=== PATIENT | male | born 1970 | race Hispanic/Latino ===

== ENCOUNTER 2017-11-20 10:01 | Inpatient (IN) | payer OTHER ==
[2017-11-20 10:53] LABS: Hematocrit 45.4 % (35.5-45.6); Hemoglobin 14.6 gm/dl (11.8-15.2); Mean Corpuscular HGB Conc 32 % (32-34); Mean Corpuscular Hemoglobin 27 pg (28-32); Mean Corpuscular Volume 84 fl (84-94); Platelet Count 354 K/mm3 (140-440); Red Blood Count 5.38 M/mm3 (3.65-5.03); Red Cell Distribution Width 15.4 % (13.2-15.2)
[2017-11-20 11:03] LABS: Bilirubin,Urine NEG (Negative); Blood,Urine SM (Negative); Color,Urine Yellow (Yellow); Mucus,Urine 1+ /HPF; Nitrite,Urine NEG (Negative); WBC,Urine < 1.0 /HPF (0.0-6.0)
[2017-11-20] MEDS ORDERED: ZOFRAN IV ONE (11:04)
[2017-11-20] MEDS ORDERED: NACL 0.9% 1000 ML 1,000 ML IV ONE (11:04)
[2017-11-20] MEDS ORDERED: SUBLIMAZE IV ONE (11:04)
[2017-11-20 11:07] LABS: Alanine Aminotransferase 11 units/L (7-56); Albumin 3.6 g/dL (3.9-5); BUN/Creatinine Ratio 23; Blood Urea Nitrogen 21 mg/dL (9-20); Calcium 9.5 mg/dL (8.4-10.2); Hemolysis Index 5
--- NOTE | 2017-11-20 11:40 | Emergency Department Report ---
HPI - General Chief Complaint: Abdominal Pain Time Seen by Provider: 11/20/17 10:57 - HPI HPI: Fernandes 19 The patient is a 47-year-old male presenting with a chief complaint of abdominal pain. Patient has a history of Crohn's disease and states she's been suffering from intermittent abdominal pain since 2016. Patient states 2 days ago pain returned and worsened. Patient describes the pain as a spasm in nature. Patient admits to nausea and vomiting but denies diarrhea, fever or dysuria. The patient currently gives his pain a score of 7/10 Location: Diffuse abdomen Duration: [See above] Quality: Spasm Severity: 7/10 Modifying factors: [see above] Context: [see above] Mode of transportation: [not driving] ED Past Medical Hx - Past Medical History Hx Diabetes: Yes Additional medical history: Crohn's Disease - Surgical History Additional Surgical History: Abd surgery due to Crohn's - Family History Family history: no significant - Social History Smoking Status: Current Every Day Smoker (1/2 pack per day) Substance Use Type: None, Marijuana ED Review of Systems ROS: Stated complaint: ABDOMINAL PAIN Other details as noted in HPI Constitutional: denies: fever Gastrointestinal: abdominal pain, nausea, vomiting. denies: diarrhea Physical Exam - Physical Exam Vital Signs: Vital Signs 11/20/17 10:19 Temperature 97.9 F Pulse Rate 151 H Respiratory 20 Rate Blood Pressure 113/77 O2 Sat by Pulse 98 Oximetry Physical Exam: GENERAL: The patient is well-developed well-nourished male lying on stretcher appearing to be in mild discomfort. [] HEENT: Normocephalic. Atraumatic. Extraocular motions are intact. Patient has moist mucous membranes. NECK: Supple. Trachea midline CHEST/LUNGS: Clear to auscultation. There is no respiratory distress noted. HEART/CARDIOVASCULAR: Regular. There is no tachycardia. There is no gallop rub or murmur. ABDOMEN: Abdomen is soft, with diffuse tenderness to palpation. Patient has normal bowel sounds. There is no abdominal distention. SKIN: There is no rash. There is no edema. There is no diaphoresis. NEURO: The patient is awake, alert, and oriented. The patient is cooperative. The patient has normal speech MUSCULOSKELETAL: There is no evidence of acute injury. ED Course Vital Signs 11/20/17 10:19 Temperature 97.9 F Pulse Rate 151 H Respiratory 20 Rate Blood Pressure 113/77 O2 Sat by Pulse 98 Oximetry - Consultations Consultation #1: 11/20/17 12:35 Surgery paged 11/20/17 12:[address] Gordon. Will review CT scan and patient to determine if NG tube is necessary Consultation #2: 11/20/17 12:38 GI paged 11/20/17 13:[address] Mix ED Medical Decision Making - Lab Data Result diagrams: 11/20/17 10:38 11/20/17 10:38 Laboratory Tests 11/20/17 11/20/17 11/20/17 10:38 10:38 10:38 WBC 7.9 RBC 5.38 H Hgb 14.6 Hct 45.4 MCV 84 MCH 27 L MCHC 32 RDW 15.4 H Plt Count 354 [place] % (Auto) Director Of Education Sodium 129 L Potassium 4.8 Chloride 89.4 L Carbon Dioxide 20 L Anion Gap 24 BUN 21 H Creatinine 0.9 Estimated GFR > 60 BUN/Creatinine Ratio 23 Glucose 153 H Calcium 9.5 Total Bilirubin 0.50 AST 10 ALT 11 Alkaline Phosphatase 76 Total Protein 7.5 Albumin 3.6 L Albumin/Globulin Ratio 0.9 Lipase 19 Urine Color Urine Turbidity Urine pH Ur Specific [place] Urine Protein Urine Glucose (UA) Urine Ketones Urine Blood Urine Nitrite Urine Bilirubin Urine Urobilinogen Ur Leukocyte Esterase Urine WBC (Auto) Urine RBC (Auto) Urine Mucus 11/20/17 10:57 WBC RBC Hgb Hct MCV MCH MCHC RDW Plt Count [place] % (Auto) Sodium Potassium Chloride Carbon Dioxide Anion Gap BUN Creatinine Estimated GFR BUN/Creatinine Ratio Glucose Calcium Total Bilirubin AST ALT Alkaline Phosphatase Total Protein Albumin Albumin/Globulin Ratio Lipase Urine Color Yellow Urine Turbidity Clear Urine pH 5.0 Ur Specific [place] 1.028 Urine Protein 30 mg/dl Urine Glucose (UA) Neg Urine Ketones 20 Urine Blood Sm Urine Nitrite Neg Urine Bilirubin Neg Urine Urobilinogen 2.0 Ur Leukocyte Esterase Neg Urine WBC (Auto) < 1.0 Urine RBC (Auto) 1.0 Urine Mucus 1+ - EKG Data -: EKG Interpreted by Al EKG shows normal: sinus rhythm Rate: tachycardia (123 bpm) - EKG Data When compared to previous EKG there are: previous EKG unavailable Interpretation: other (no ischemic changes seen) - Radiology Data Radiology results: report reviewed (CT abdomen and pelvis), image reviewed (CT abdomen and pelvis) CT abdomen and pelvis (read by radiologist)- impressive nodular thickening and enhancement of the terminal ileum. With the given history and acute Crohn's exacerbation is most likely. Please note I cannot entirely exclude a neoplastic process. Please note that the penicillin is not confidently identified, correlate with surgical history. There are signs of a moderate to high-grade partial small bowel obstruction at the level of the terminal ileum. - Differential Diagnosis Crohn's flareup, gastritis Critical care attestation.: If time is entered above; I have spent that time in minutes in the direct care of this critically ill patient, excluding procedure time. ED Disposition Clinical Impression: Partial small bowel obstruction, Acute abdominal pain, Exacerbation of Crohn's disease Disposition: 09 OP ADMIT IP TO THIS HOSP Is pt being admited?: Yes Does the pt Need Aspirin: No Condition: Fair Time of Disposition: 12:38 (hospitalist paged)
[2017-11-20 11:42] LABS: Band Neutrophils # (Manual) 0.7 K/mm3; Basophils % (Manual) 0 % (0.0-1.8); Platelet Estimate Consistent w Auto; RBC Morphology Normal; Total Cells Counted 100
--- NOTE | 2017-11-20 12:01 | Cat Scan Report ---
CT ABDOMEN PELVIS WITH CONTRAST: HISTORY: Diffuse abdominal pain, history of Crohn's disease. COMPARISON: none. TECHNIQUE: Helical CT in 1.25mm intervals following IV contrast. Sagittal and coronal reconstructions. FINDINGS: Lung bases: Minor discoid atelectasis or scarring is noted in the right middle lobe. The remainder of the visualized lung bases are well aerated. Normal heart size. Liver: Normal. Biliary system: Normal. Pancreas: Normal. Spleen: Normal. Kidneys/ureters/bladder: Normal. Adrenal glands: Normal. Aorta: Normal. Intestines: There is impressive and nodular circumferential thickening of the terminal ileum with mucosal enhancement. Multiple distal ileal loops are dilated up to 4 cm. Partial obstruction is suspected at this level. Given a history of Crohn's disease, this area of nodular thickening could represent an acute Crohn's exacerbation. Please note I can't entirely exclude tumor in the terminal ileum. Lymphoma could be considered. The remaining bowel loops are unremarkable given no oral contrast was administered. Surgical changes consistent with distal gastrectomy and anastomosis to the jejunal bowel loops is suspected, correlate with history. Appendix: Not identified. Pelvic viscera: Normal. Ascites: None. Adenopathy: None. Musculoskeletal: Normal. IMPRESSION: Impressive nodular thickening and enhancement of the terminal ileum as outlined above. With the given history, an acute Crohn's exacerbation is most likely. Please note I cannot entirely exclude a neoplastic process. Please note that the appendix is not confidently identified, correlate with surgical history. There are signs of a moderate to high-grade partial small bowel obstruction at the level of the terminal ileum.
--- NOTE | 2017-11-20 13:28 | Consultation ---
History of Present Illness Consult date: 11/20/17 Requesting physician: SHERYL SAWYER Chief complaint: Abdominal pain - History of present illness History of present illness: 47-year-old male with a past medical history of Crohn's disease diagnosed in 1993 presents to the emergency room with complaints of right lower quadrant abdominal pain, described as spasms, that radiates across to the left side of the abdomen. He states that the pain started approximately 1-1/2 month ago, and has been intermittent in nature. He states that he has been dealing with the pain however it has become so severe and more frequent now and this prompted his visit to the emergency room. He has been having associated nausea and emesis (nonbloody/nonbilious). This is been going on for the last 3 days. He has not been able to tolerate a solid diet, however has been tolerating clear liquids for the past day. His last bowel movement was 2 days ago. He is still passing flatus. He denies fevers, chills, chest pain, shortness of breath , hematochezia, melena, diarrhea, constipation. Patient last colonoscopy was 10 years ago. He recently saw Dr. Her (GI) in the office and multiple tests were ordered for his Crohn's disease, however the patient has not gotten around to having this test performed. He was started on prednisone 20 mg by mouth daily by Dr. Her. The patient has had 2 abdominal operations both for complications of Crohn's disease. The patient does not remember the details however states that one was for a fistula that formed an abscess and another open abdominal surgery for a presumed duodenal obstruction. Past History Past Medical History: diabetes, hypertension, other (Crohn's disease ) Past Surgical History: bowel surgery, Other (exploratory laparotomy) Social history: smoking (half pack per day, occasional marijuana), alcohol abuse (12 pack of beer a week) Family history: other (skin cancer in mother, lung cancer in grandfather) Medications and Allergies Allergies Allergy/AdvReac Type Severity Reaction Status Date / Time No Known Allergies Allergy Unverified 11/20/17 10:31 Home Medications Medication Instructions Recorded Confirmed Last Taken Type Lisinopril [Zestril TAB] 11/20/17 Unknown History Metformin HCl [Metformin HCl] 11/20/17 Unknown History predniSONE [Deltasone] 11/20/17 Unknown History Review of Systems All systems: negative (10 point review systems was performed and negative except for that listed in HPI) Exam Vital Signs Temp Pulse Resp BP Pulse Ox 97.9 F 151 H 20 113/77 98 11/20/17 10:19 11/20/17 10:19 11/20/17 10:19 11/20/17 10:19 11/20/17 10:19 Narrative exam: Interval: Awake, alert, oriented 3. stress ENT: No scleral icterus or conjunctival pallor CV: S1, S2 present Respiratory: No audible wheezes Abdomen: Soft, nondistended, positive tenderness to palpation in the right upper and right lower quadrant. There is no rebound, rigidity, guarding. There is a well-healed midline surgical scar Extremities: No clubbing, cyanosis, edema Results - Labs 11/20/17 10:38 11/20/17 10:38 Abnormal lab results 11/20/17 11/20/17 Range/Units 10:38 10:38 RBC 5.38 H (3.65-5.03) M/mm3 MCH 27 L (28-32) pg RDW 15.4 H (13.2-15.2) % Monocytes % (Manual) 12.0 H (0.0-7.3) % Nucleated RBC % 1.0 H (0.0-0.9) % Monocytes # (Manual) 0.9 H (0.0-0.8) K/mm3 Sodium 129 L (137-145) mmol/L Chloride 89.4 L (98-107) mmol/L Carbon Dioxide 20 L (22-30) mmol/L BUN 21 H (9-20) mg/dL Glucose 153 H (75-100) mg/dL Albumin 3.6 L (3.9-5) g/dL Diabetes panel 11/20/17 Range/Units 10:38 Sodium 129 L (137-145) mmol/L Potassium 4.8 (3.6-5.0) mmol/L Chloride 89.4 L (98-107) mmol/L Carbon Dioxide 20 L (22-30) mmol/L BUN 21 H (9-20) mg/dL Creatinine 0.9 (0.8-1.5) mg/dL Glucose 153 H (75-100) mg/dL Calcium 9.5 (8.4-10.2) mg/dL AST 10 (5-40) units/L ALT 11 (7-56) units/L Alkaline Phosphatase 76 (35-129) units/L Total Protein 7.5 (6.3-8.2) g/dL Albumin 3.6 L (3.9-5) g/dL Calcium panel 11/20/17 Range/Units 10:38 Calcium 9.5 (8.4-10.2) mg/dL Albumin 3.6 L (3.9-5) g/dL Pituitary panel 11/20/17 Range/Units 10:38 Sodium 129 L (137-145) mmol/L Potassium 4.8 (3.6-5.0) mmol/L Chloride 89.4 L (98-107) mmol/L Carbon Dioxide 20 L (22-30) mmol/L BUN 21 H (9-20) mg/dL Creatinine 0.9 (0.8-1.5) mg/dL Glucose 153 H (75-100) mg/dL Calcium 9.5 (8.4-10.2) mg/dL Adrenal panel 11/20/17 Range/Units 10:38 Sodium 129 L (137-145) mmol/L Potassium 4.8 (3.6-5.0) mmol/L Chloride 89.4 L (98-107) mmol/L Carbon Dioxide 20 L (22-30) mmol/L BUN 21 H (9-20) mg/dL Creatinine 0.9 (0.8-1.5) mg/dL Glucose 153 H (75-100) mg/dL Calcium 9.5 (8.4-10.2) mg/dL Total Bilirubin 0.50 (0.1-1.2) mg/dL AST 10 (5-40) units/L ALT 11 (7-56) units/L Alkaline Phosphatase 76 (35-129) units/L Total Protein 7.5 (6.3-8.2) g/dL Albumin 3.6 L (3.9-5) g/dL - Imaging CT scan - abdomen: report reviewed, image reviewed CT scan - pelvis: report reviewed, image reviewed Assessment and Plan 47-year-old male with 1. Partial small bowel obstruction 2. Terminal ileitis 3. Crohn's disease Plan: 1. Nothing by mouth 2. IV fluids 3. IV antibiotics 4. GI consult pending 5. Serial abdominal exams 6. Pain and nausea control when necessary 7. DVT prophylaxis 8. We will hold off on NG tube. If the patient experiences emesis, an NG tube will be ordered. This was discussed and explained to the patient.
[2017-11-20] MEDS ORDERED: DULCOLAX PR PRN (14:27)
[2017-11-20] MEDS ORDERED: PROVENTIL IH PRN (14:27)
[2017-11-20] MEDS ORDERED: ZOFRAN IV PRN (14:27)
[2017-11-20] MEDS ORDERED: TYLENOL PO PRN (14:27)
[2017-11-20] MEDS ORDERED: MILK OF MAGNESIA PO PRN (14:27)
--- NOTE | 2017-11-20 14:44 | Gastroenterology Consultation ---
History of Present Illness - Reason for Consult Consult date: 11/20/17 Crohn's disease Requesting physician: RULA WHARTON - History of Present Illness The patient is a 47 year old man seen by myself and followed for several years until lost to follow up more than 5 years ago. He has mostly been under the care of his PCP, Dr. Stefania Martin, who has been prescribing monotherapy with prednisone. He is now admitted with a slowly progressive flare of pain over the past 8 weeks. Patient was diagnosed in 1993 at which time he had a partial resection, likely ileocolectomy athough he does not recall the details. 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 He has not had a colonoscopy in 10 years. The patient has been on Remicade in the past but does not recall whether this was successful. He has not been engaged in GI care for many years. Weight has been stable and he denies bleeding or diarrhea. He smokes cigarettes daily and takes Alleve or Advil regularly for abdominal pain. Past History Past Medical History: diabetes, hypertension, other (Crohn's disease ) Past Surgical History: bowel surgery, Other (exploratory laparotomy) Social history: smoking (half pack per day, occasional marijuana), alcohol abuse (12 pack of beer a week) Family history: other (skin cancer in mother, lung cancer in grandfather) Medications and Allergies Allergies Allergy/AdvReac Type Severity Reaction Status Date / Time No Known Allergies Allergy Unverified 11/20/17 10:31 Home Medications Medication Instructions Recorded Confirmed Last Taken Type Lisinopril [Zestril TAB] 11/20/17 Unknown History Metformin HCl [Metformin HCl] 11/20/17 Unknown History predniSONE [Deltasone] 11/20/17 Unknown History Active Meds: Active Medications Acetaminophen (Tylenol) 650 mg PO Q4H PRN PRN Reason: Pain MILD(1-3)/Fever >100.5/SHOOK Albuterol (Proventil) 2.5 mg IH Q4HRT PRN PRN Reason: Shortness Of Breath Bisacodyl (Dulcolax) 10 mg [place] QDAY PRN PRN Reason: Constipation unrelieved by MOM Sodium Chloride (Nacl 0.9% 1000 Ml) 1,000 mls @ 150 mls/hr IV DIRECT KELLY Magnesium Hydroxide (Milk Of Magnesia) 30 ml PO Q4H PRN PRN Reason: Constipation Methylprednisolone Sodium Succinate (Solu-Medrol) 40 mg IV Q8HR KELLY Ondansetron HCl (Zofran) 4 mg IV Q8H PRN PRN Reason: N/V unrelieved by Reglan Review of Systems - Review of Systems Constitutional: no weight loss, no fever, no chills Ears, Nose, Throat: no difficulty swallowing, no painful swallowing Breasts: deferred Cardiovascular: no chest pain, no edema, no rapid/irregular heart beat, no shortness of breath Respiratory: no cough, no shortness of breath, no home oxygen Gastrointestinal: abdominal pain, no nausea, no vomiting, no diarrhea, no constipation, no change in bowel habits, no hematemesis, no BRBPR, no heartburn Rectal: no pain, no bleeding Male Genitourinary: deferred Musculoskeletal: no gait dysfunction, no joint pain, no muscle pain Integumentary: no rash, no pruritis, no jaundice Neurological: no head injury, no paralysis, no weakness, no memory loss Psychiatric: no anxiety, no memory loss, no change in appetite, no disorientation Endocrine: no cold intolerance, no heat intolerance Hematologic/Lymphatic: no easy bruising, no easy bleeding Allergic/Immunologic: no wheezing, no angioedema Exam - Constitutional Vital Signs: Temp Pulse Resp BP Pulse Ox 97.9 F 151 H 20 113/77 98 11/20/17 10:19 11/20/17 10:19 11/20/17 12:25 11/20/17 10:19 11/20/17 10:19 General appearance: no acute distress, well-nourished - EENT Eyes: PERRL ENT: hearing intact, clear oral mucosa, dentition normal - Neck Neck: supple, normal ROM, no masses or JVD - Respiratory Respiratory effort: normal Respiratory: bilateral: CTA - Breasts Breasts: deferred - Cardiovascular Rhythm: regular Heart Sounds: Present: S1 & S2. Absent: gallop, rub Extremities: pulses intact, No edema, normal color, Full ROM - Gastrointestinal General gastrointestinal: Present: soft, tender (moderate tenderness in RLQ without rebound or guarding.), non-distended, normal bowel sounds, other ( Midline and RLQ scars). Absent: hepatomegaly, splenomegaly, mass Rectal Exam: deferred - Genitourinary Male Genitourinary: deferred - Integumentary Integumentary: Present: clear, warm, dry - Neurologic Neurological: alert and oriented x3 - Labs CBC & Chem 7: 11/20/17 10:38 11/20/17 10:38 Lab Results: Laboratory Results - last 24 hr 11/20/17 11/20/17 11/20/17 10:38 10:38 10:38 WBC 7.9 RBC 5.38 H Hgb 14.6 Hct 45.4 MCV 84 MCH 27 L MCHC 32 RDW 15.4 H Plt Count 354 [place] % (Auto) Flight Line Service Attendant Add Manual Diff Complete Total Counted 100 Seg Neuts % (Manual) 61.0 Band Neutrophils % 9.0 Lymphocytes % (Manual) 17.0 Reactive Lymphs % (Man) 0 Monocytes % (Manual) 12.0 H Eosinophils % (Manual) 1.0 Basophils % (Manual) 0 Metamyelocytes % 0 Myelocytes % 0 Promyelocytes % 0 Blast Cells % 0 Nucleated RBC % 1.0 H Seg Neutrophils # Man 4.8 Band Neutrophils # 0.7 Lymphocytes # (Manual) 1.3 Abs React Lymphs (Man) 0.0 Monocytes # (Manual) 0.9 H Eosinophils # (Manual) 0.1 Basophils # (Manual) 0.0 Metamyelocytes # 0.0 Myelocytes # 0.0 Promyelocytes # 0.0 Blast Cells # 0.0 WBC Morphology Not Reportable Hypersegmented Neuts Not Reportable Hyposegmented Neuts Not Reportable Hypogranular Neuts Not Reportable Smudge Cells Not Reportable Toxic Granulation Not Reportable Toxic Vacuolation Not Reportable Dohle Bodies Not Reportable Pelger-Huet Anomaly Not Reportable Christina Rods Not Reportable Platelet Estimate Consistent w auto Clumped Platelets Not Reportable Plt Clumps, EDTA Not Reportable Large Platelets Not Reportable Giant Platelets Not Reportable Platelet Satelliting Not Reportable Plt Morphology Comment Not Reportable RBC Morphology Normal Dimorphic RBCs Not Reportable Polychromasia Not Reportable Hypochromasia Not Reportable Poikilocytosis Not Reportable Anisocytosis Not Reportable Microcytosis Not Reportable Macrocytosis Not Reportable Spherocytes Not Reportable Pappenheimer Bodies Not Reportable Sickle Cells Not Reportable Target Cells Not Reportable Tear Drop Cells Not Reportable Ovalocytes Not Reportable Helmet Cells Not Reportable Cleary-[place] Bodies Not Reportable [place] Rings Not Reportable Barrett Cells Not Reportable Bite Cells Not Reportable Crenated Cell Not Reportable Elliptocytes Not Reportable Acanthocytes (Spur) Not Reportable Rouleaux Not Reportable Hemoglobin C Crystals Not Reportable Schistocytes Not Reportable Malaria parasites Not Reportable Krishna Bodies Not Reportable Hem Pathologist Commnt No Sodium 129 L Potassium 4.8 Chloride 89.4 L Carbon Dioxide 20 L Anion Gap 24 BUN 21 H Creatinine 0.9 Estimated GFR > 60 BUN/Creatinine Ratio 23 Glucose 153 H Calcium 9.5 Total Bilirubin 0.50 AST 10 ALT 11 Alkaline Phosphatase 76 Total Protein 7.5 Albumin 3.6 L Albumin/Globulin Ratio 0.9 Lipase 19 Urine Color Urine Turbidity Urine pH Ur Specific [place] Urine Protein Urine Glucose (UA) Urine Ketones Urine Blood Urine Nitrite Urine Bilirubin Urine Urobilinogen Ur Leukocyte Esterase Urine WBC (Auto) Urine RBC (Auto) Urine Mucus 11/20/17 10:57 WBC RBC Hgb Hct MCV MCH MCHC RDW Plt Count [place] % (Auto) Add Manual Diff Total Counted Seg Neuts % (Manual) Band Neutrophils % Lymphocytes % (Manual) Reactive Lymphs % (Man) Monocytes % (Manual) Eosinophils % (Manual) Basophils % (Manual) Metamyelocytes % Myelocytes % Promyelocytes % Blast Cells % Nucleated RBC % Seg Neutrophils # Man Band Neutrophils # Lymphocytes # (Manual) Abs React Lymphs (Man) Monocytes # (Manual) Eosinophils # (Manual) Basophils # (Manual) Metamyelocytes # Myelocytes # Promyelocytes # Blast Cells # WBC Morphology Hypersegmented Neuts Hyposegmented Neuts Hypogranular Neuts Smudge Cells Toxic Granulation Toxic Vacuolation Dohle Bodies Pelger-Huet Anomaly Christina Rods Platelet Estimate Clumped Platelets Plt Clumps, EDTA Large Platelets Giant Platelets Platelet Satelliting Plt Morphology Comment RBC Morphology Dimorphic RBCs Polychromasia Hypochromasia Poikilocytosis Anisocytosis Microcytosis Macrocytosis Spherocytes Pappenheimer Bodies Sickle Cells Target Cells Tear Drop Cells Ovalocytes Helmet Cells Cleary-[place] Bodies [place] Rings Ladarius Cells Bite Cells Crenated Cell Elliptocytes Acanthocytes (Spur) Rouleaux Hemoglobin C Crystals Schistocytes Malaria parasites Krishna Bodies Hem Pathologist Commnt Sodium Potassium Chloride Carbon Dioxide Anion Gap BUN Creatinine Estimated GFR BUN/Creatinine Ratio Glucose Calcium Total Bilirubin AST ALT Alkaline Phosphatase Total Protein Albumin Albumin/Globulin Ratio Lipase Urine Color Yellow Urine Turbidity Clear Urine pH 5.0 Ur Specific [place] 1.028 Urine Protein 30 mg/dl Urine Glucose (UA) Neg Urine Ketones 20 Urine Blood Sm Urine Nitrite Neg Urine Bilirubin Neg Urine Urobilinogen 2.0 Ur Leukocyte Esterase Neg Urine WBC (Auto) < 1.0 Urine RBC (Auto) 1.0 Urine Mucus 1+ - Imaging CT Scan: report reviewed, image reviewed Assessment and Plan - Patient Problems (1) Exacerbation of Crohn's disease Current Visit: Yes Status: Acute Plan to address problem: Progressive abdominal due to crohn's exacerbation. Inadequate care for a decade mostly due to non compliance despite active disease. Now has a partial bowel obstruction. Agree with high dose IV steroids, IVF support, empiric antibiotics and f/u Xrays. He will need a re staging work up at some point with colonoscopy and small bowel series, if not requiring surgery at this point. Will order quantiferon gold for TB and hepatitis screen. Lymphoma cannot be completely excluded in the distal ileum (2) Partial small bowel obstruction Current Visit: Yes Status: Acute
[2017-11-20] MEDS: NACL 0.9% 1000 ML 1,000 ML IV SCH (20:35)
--- NOTE | 2017-11-20 20:39 | History and Physical Report ---
History of Present Illness Date of admission: 11/20/17 14:27 Chief complaint: My stomach hurts History of present illness: 47 YO Male with Crohn's Disease, DM Nicotine Dependence presents to ED for evaluation. Pt states that he has experienced intermittent abdominal pain for the past 2 months with worsening symptoms over the past 2 days. Pt states that pain is 7/10, intermittent, colicky, and is associated with nausea and vomiting. Patient denies diarrhea, fever, dysuria, fever, chills, BRBPR, Changes in size or caliber of stool, unintentional weight loss, night sweats, skin rash, itching, or recent ill contacts. Pt seen and evaluated in ED and underwent CT scan of the abdomen, and is consistent with Crohn's disease flare. GI consulted in ED and patient started on IV steroid therapy. Surgery team consulted as well. Pt admitted to medical floor. Past History Past Medical History: diabetes, hypertension, other (Crohn's disease ) Past Surgical History: bowel surgery, Other (exploratory laparotomy) Social history: smoking (half pack per day, occasional marijuana), alcohol abuse (12 pack of beer a week) Family history: other (skin cancer in mother, lung cancer in grandfather) Medications and Allergies Allergies Allergy/AdvReac Type Severity Reaction Status Date / Time No Known Allergies Allergy Unverified 11/20/17 10:31 Home Medications Medication Instructions Recorded Confirmed Last Taken Type Lisinopril [Zestril TAB] 10 mg PO QDAY 11/20/17 11/20/17 Unknown History Metformin HCl [Metformin HCl] 1 tab PO DAILY 11/20/17 11/20/17 Unknown History Zolpidem [Ambien] 10 mg PO QHS 11/20/17 11/20/17 Unknown History Active Meds: Active Medications Acetaminophen (Tylenol) 650 mg PO Q4H PRN PRN Reason: Pain MILD(1-3)/Fever >100.5/SHOOK Albuterol (Proventil) 2.5 mg IH Q4HRT PRN PRN Reason: Shortness Of Breath Bisacodyl (Dulcolax) 10 mg MI QDAY PRN PRN Reason: Constipation unrelieved by MOM Sodium Chloride (Nacl 0.9% 1000 Ml) 1,000 mls @ 150 mls/hr IV DIRECT KELLY Last Admin: 11/20/17 20:35 Dose: 150 mls/hr Magnesium Hydroxide (Milk Of Magnesia) 30 ml PO Q4H PRN PRN Reason: Constipation Methylprednisolone Sodium Succinate (Solu-Medrol) 40 mg IV Q8H KELLY Last Admin: 11/20/17 17:06 Dose: 40 mg Ondansetron HCl (Zofran) 4 mg IV Q8H PRN PRN Reason: N/V unrelieved by Reglan Review of Systems Constitutional: no weight loss, no weight gain, no fever, no chills Ears, nose, mouth and throat: no ear pain, no ear discharge, no tinnitis, no decreased hearing, no nose pain, no nasal congestion Cardiovascular: no chest pain, no orthopnea, no palpitations, no rapid/ irregular heart beat, no edema, no syncope Respiratory: no cough, no cough with sputum, no excessive sputum, no shortness of breath Gastrointestinal: abdominal pain, nausea, vomiting Genitourinary Male: no dysuria, no hematuria, no flank pain, no discharge Rectal: no pain, no incontinence, no bleeding Musculoskeletal: no neck stiffness, no neck pain, no shooting arm pain, no arm numbness/tingling, no low back pain, no shooting leg pain Integumentary: no rash, no pruritis, no redness, no sores, no wounds Psychiatric: no anxiety, no memory loss, no change in sleep habits, no sleep disturbances, no insomnia, no hypersomnia, no change in appetite Endocrine: no cold intolerance, no heat intolerance, no polyphagia, no excessive thirst, no polydipsia, no polyuria Hematologic/Lymphatic: no easy bruising, no easy bleeding Allergic/Immunologic: no urticaria, no allergic rhinitis, no wheezing Exam - Constitutional Vitals: Temp Pulse Resp BP Pulse Ox 98.0 F 82 20 122/82 96 11/20/17 20:15 11/20/17 20:15 11/20/17 20:15 11/20/17 20:15 11/20/17 20:15 General appearance: Present: mild distress - EENT Eyes: Present: PERRL ENT: hearing intact, clear oral mucosa - Neck Neck: Present: supple, normal ROM - Respiratory Respiratory effort: normal Respiratory: bilateral: CTA - Cardiovascular Heart Sounds: Present: S1 & S2. Absent: rub, click - Extremities Extremities: pulses symmetrical, No edema Peripheral Pulses: within normal limits - Abdominal General gastrointestinal: Present: soft, tender, normal bowel sounds. Absent: distended, hepatomegaly, splenomegaly, mass, hernia Localized gastrointestinal: tender: diffuse Male genitourinary: Present: normal - Integumentary Integumentary: Present: clear, warm, dry - Musculoskeletal Musculoskeletal: gait normal, strength equal bilaterally - Psychiatric Psychiatric: appropriate mood/affect, intact judgment & insight - Neurologic Neurologic: CNII-XII intact, moves all extremities Results - Labs CBC & Chem 7: 11/20/17 10:38 11/20/17 10:38 Labs: Abnormal lab results 11/20/17 11/20/17 Range/Units 10:38 10:38 RBC 5.38 H (3.65-5.03) M/mm3 MCH 27 L (28-32) pg RDW 15.4 H (13.2-15.2) % Monocytes % (Manual) 12.0 H (0.0-7.3) % Nucleated RBC % 1.0 H (0.0-0.9) % Monocytes # (Manual) 0.9 H (0.0-0.8) K/mm3 Sodium 129 L (137-145) mmol/L Chloride 89.4 L (98-107) mmol/L Carbon Dioxide 20 L (22-30) mmol/L BUN 21 H (9-20) mg/dL Glucose 153 H (75-100) mg/dL Albumin 3.6 L (3.9-5) g/dL Assessment and Plan - Patient Problems (1) Exacerbation of Crohn's disease Current Visit: Yes Status: Acute Qualifiers: Digestive disease complication type: with intestinal obstruction Qualified Code(s): K50.912 - Crohn's disease, unspecified, with intestinal obstruction Plan to address problem: GI consulted, IV steroid therapy, CT Abdomen Pelvis, Serial abdominal exam, Surgery team consulted, IVF resuscitation, bowel rest, Endoscopy in AM as per GI team. (2) Partial small bowel obstruction Current Visit: Yes Status: Acute Plan to address problem: Bowel rest, surgery consulted, serial abdominal exam, NG decompression as per surgical team recommendation (3) Diabetes Current Visit: Yes Status: Acute Plan to address problem: ADA diet, insulin, accu check (4) Nicotine dependence Current Visit: Yes Status: Acute Qualifiers: Substance use status: in withdrawal Plan to address problem: Supportive care, Pt declines to pick quit date, (5) Acute abdominal pain Current Visit: Yes Status: Acute Plan to address problem: CT abdomen pelvis, surgery consulted, supportive care. (6) DVT prophylaxis Current Visit: Yes Status: Acute
[2017-11-21] MEDS: LEVAQUIN 750MG/150ML 750 MG/150 ML BAG IV SCH (07:14)
[2017-11-21 09:23] LABS: Eosinophils % (Auto) 0.1 % (0.0-4.3); Hemoglobin 12.6 gm/dl (11.8-15.2); Lymphocytes # (Auto) 0.4 K/mm3 (1.2-5.4); Lymphocytes % (Auto) 10.8 % (13.4-35.0); Mean Corpuscular HGB Conc 32 % (32-34); Mean Corpuscular Hemoglobin 27 pg (28-32); Mean Corpuscular Volume 85 fl (84-94); Monocytes # (Auto) 0.2 K/mm3 (0.0-0.8); Monocytes % (Auto) 5.7 % (0.0-7.3); Platelet Count 258 K/mm3 (140-440); Red Cell Distribution Width 15.6 % (13.2-15.2)
[2017-11-21 09:39] LABS: Magnesium 2.1 mg/dL (1.7-2.3)
[2017-11-21 09:40] LABS: BUN/Creatinine Ratio 25; Blood Urea Nitrogen 15 mg/dL (9-20); Calcium 8.4 mg/dL (8.4-10.2); Hemolysis Index 14
[2017-11-21] MEDS: NACL 0.9% 1000 ML 1,000 ML IV SCH (10:29)
[2017-11-21] MEDS: MORPHINE IV PRN ×3 (11:35→22:03)
[2017-11-21] MEDS: FLAGYL 500 MG/100 ML 500 MG/100 ML BAG IV SCH ×2 (14:18→22:06)
--- NOTE | 2017-11-21 14:21 | Progress Note ---
Assessment and Plan 47-year-old male with 1. Partial small bowel obstruction 2. Terminal ileitis 3. Crohn's disease 4. hyponatremia, hypochloridia - likely secondary to volume contraction from dehydration Plan: 1. may start clear liquids 2. IV fluids 3. IV antibiotics - levaquin and flagyl started 4. GI consult noted 5. Serial abdominal exams 6. Pain and nausea control when necessary 7. DVT prophylaxis 8. IV steroids 9. daily BMP, monitor Na No indication for acute surgical intervention Thank you for this consultation. Please call with any questions or concerns. Subjective Date of service: 11/21/17 Narrative: Patient seen and examined. He states he feels better today. His abdominal pain is improved. He denies fevers, chills, nausea, vomiting. He is passing flatus but no bowel movement. Objective Vital Signs - 12hr 11/21/17 11/21/17 08:38 10:10 Temperature 97.8 F Pulse Rate 77 Respiratory 20 Rate Blood Pressure 119/74 O2 Sat by Pulse 99 100 Oximetry - General physical appearance Narrative Exam: General: Awake, alert, oriented 3. CV: S1, S2 present Respiratory: Normal wheezes Abdomen: Soft, nondistended, minimal tenderness to palpation in the right upper and lower abdomen. No rebound, rigidity, guarding. Extremities: No clubbing, cyanosis, edema - Labs 11/21/17 06:26 11/21/17 09:00 Diabetes panel 11/21/17 Range/Units 09:00 Sodium 131 L (137-145) mmol/L Potassium 4.8 (3.6-5.0) mmol/L Chloride 92.9 L (98-107) mmol/L Carbon Dioxide 20 L (22-30) mmol/L BUN 15 (9-20) mg/dL Creatinine 0.6 L (0.8-1.5) mg/dL Glucose 169 H (75-100) mg/dL Calcium 8.4 (8.4-10.2) mg/dL Calcium panel 11/21/17 11/21/17 Range/Units 09:00 09:00 Calcium 8.4 (8.4-10.2) mg/dL Phosphorus 3.60 (2.5-4.5) mg/dL Pituitary panel 11/21/17 Range/Units 09:00 Sodium 131 L (137-145) mmol/L Potassium 4.8 (3.6-5.0) mmol/L Chloride 92.9 L (98-107) mmol/L Carbon Dioxide 20 L (22-30) mmol/L BUN 15 (9-20) mg/dL Creatinine 0.6 L (0.8-1.5) mg/dL Glucose 169 H (75-100) mg/dL Calcium 8.4 (8.4-10.2) mg/dL Adrenal panel 11/21/17 Range/Units 09:00 Sodium 131 L (137-145) mmol/L Potassium 4.8 (3.6-5.0) mmol/L Chloride 92.9 L (98-107) mmol/L Carbon Dioxide 20 L (22-30) mmol/L BUN 15 (9-20) mg/dL Creatinine 0.6 L (0.8-1.5) mg/dL Glucose 169 H (75-100) mg/dL Calcium 8.4 (8.4-10.2) mg/dL
--- NOTE | 2017-11-21 16:06 | Gastroenterology Progress Note ---
Assessment and Plan - Patient Problems (1) Exacerbation of Crohn's disease Current Visit: Yes Status: Acute Qualifiers: Digestive disease complication type: with intestinal obstruction Qualified Code(s): K50.912 - Crohn's disease, unspecified, with intestinal obstruction Plan to address problem: Improving on high dose steroids. Partial SBO is clinically resolving. Will advance to clears. He understands the importance of re engaging in f/u care. He will need restaging with small bowel series and colonoscopy as outpatient. Will need TNF therapy. Hopefully the TI can be biopsied to help exclude lymphoma , a rare sequelae of Crohn's. (2) Partial small bowel obstruction Current Visit: Yes Status: Acute Subjective Date of service: 11/21/17 Principal diagnosis: Crohn's ileocolitis Interval history: The patient reports feeling better. Reports passing flatus, less pain. Objective - Constitutional Vitals: Temp Pulse Resp BP Pulse Ox 97.8 F 77 20 119/74 100 11/21/17 08:38 11/21/17 08:38 11/21/17 08:38 11/21/17 08:38 11/21/17 10:10 General appearance: no acute distress - EENT ENT: hearing intact, clear oral mucosa, dentition normal - Neck Neck: supple, normal ROM - Respiratory Respiratory effort: normal Respiratory: bilateral: CTA - Cardiovascular Rhythm: regular - Extremities Extremities: pulses intact, No edema, normal color, Full ROM - Gastrointestinal General gastrointestinal: Present: soft, non-tender, non-distended, normal bowel sounds, other (Long midline scar, RLQ scar) Rectal Exam: deferred - Neurologic Neurological: alert and oriented x3 - Labs CBC & Chem 7: 11/21/17 06:26 11/21/17 09:00 Labs: Laboratory Results - last 24 hr 11/20/17 11/20/17 11/21/17 15:23 15:23 06:26 WBC 3.9 L RBC 4.60 Hgb 12.6 Hct 39.0 D MCV 85 MCH 27 L MCHC 32 RDW 15.6 H Plt Count 258 Lymph % (Auto) 10.8 L [place] % (Auto) 5.7 Eos % (Auto) 0.1 Baso % (Auto) 0.0 Lymph # 0.4 L [place] # 0.2 Eos # 0.0 Baso # 0.0 Seg Neutrophils % 83.4 H Seg Neutrophils # 3.3 Sodium Potassium Chloride Carbon Dioxide Anion Gap BUN Creatinine Estimated GFR BUN/Creatinine Ratio Glucose Calcium Phosphorus Magnesium Hep Bs Antigen Non-reactive Hepatitis C Antibody Non-reactive 11/21/17 11/21/17 09:00 09:00 WBC RBC Hgb Hct MCV MCH MCHC RDW Plt Count Lymph % (Auto) [place] % (Auto) Eos % (Auto) Baso % (Auto) Lymph # [place] # Eos # Baso # Seg Neutrophils % Seg Neutrophils # Sodium 131 L Potassium 4.8 Chloride 92.9 L Carbon Dioxide 20 L Anion Gap 23 BUN 15 Creatinine 0.6 L Estimated GFR > 60 BUN/Creatinine Ratio 25 Glucose 169 H Calcium 8.4 Phosphorus 3.60 Magnesium 2.10 Hep Bs Antigen Hepatitis C Antibody
--- NOTE | 2017-11-21 16:51 | Progress Note ---
Assessment and Plan Assessment and plan: 47 YO Male with Crohn's Disease, DM Nicotine Dependence presents to ED for evaluation. Pt states that he has experienced intermittent abdominal pain for the past 2 months with worsening symptoms over the past 2 days. Pt states that pain is 7/10, intermittent, colicky, and is associated with nausea and vomiting. Pt seen and evaluated in ED and underwent CT scan of the abdomen, and is consistent with Crohn's disease flare. GI consulted in ED and patient started on IV steroid therapy. Surgery team consulted as well. Crohn's disease flare, his terminal ileitis Patient may need biopsy to rule out lymphoma - Patient is on IV steroids - GI consult appreciated - Patient is on empiric IV Levaquin and Flagyl - Pain control Partial small bowel obstruction - Surgery consult appreciated - Recommend to start on clear liquid diet Dehydration, with hyponatremia and hypochloremia - Patient is on IV fluid DVT prophylaxis - SCDs, in case the patient needs surgical intervention Disposition - Continue inpatient care History Interval history: Patient was seen and evaluated this morning, he still have abdominal pain but is getting better. Hospitalist Physical - Physical exam Narrative exam: Not in cardiopulmonary distress. The patient appeared well nourished and normally developed. Vital signs as documented. Head exam is unremarkable. No scleral icterus . Neck is without jugular venous distension, thyromegaly, or carotid bruits. Lungs are clear to auscultation. Cardiac exam reveals regular rate and Rhythm. First and second heart sounds normal. No murmurs, rubs or gallops. Abdominal exam mild abdominal tenderness, no guarding or rigidity. Extremities are nonedematous and both femoral and pedal pulses are normal. INCIDENT RESPONSE ANALYST: Alert and oriented 3. No focal weakness. - Constitutional Vitals: Temp Pulse Resp BP Pulse Ox 97.8 F 77 20 119/74 100 11/21/17 08:38 11/21/17 08:38 11/21/17 08:38 11/21/17 08:38 11/21/17 10:10 General appearance: Present: mild distress Results - Labs CBC & Chem 7: 11/21/17 06:26 11/21/17 09:00 Labs: Laboratory Last Values WBC 3.9 K/mm3 (4.5-11.0) L 11/21/17 06:26 RBC 4.60 M/mm3 (3.65-5.03) 11/21/17 06:26 Hgb 12.6 gm/dl (11.8-15.2) 11/21/17 06:26 Hct 39.0 % (35.5-45.6) D 11/21/17 06:26 MCV 85 fl (84-94) 11/21/17 06:26 MCH 27 pg (28-32) L 11/21/17 06:26 MCHC 32 % (32-34) 11/21/17 06:26 RDW 15.6 % (13.2-15.2) H 11/21/17 06:26 Plt Count 258 K/mm3 (140-440) 11/21/17 06:26 Lymph % (Auto) 10.8 % (13.4-35.0) L 11/21/17 06:26 [place] % (Auto) 5.7 % (0.0-7.3) 11/21/17 06:26 Eos % (Auto) 0.1 % (0.0-4.3) 11/21/17 06:26 Baso % (Auto) 0.0 % (0.0-1.8) 11/21/17 06:26 Lymph # 0.4 K/mm3 (1.2-5.4) L 11/21/17 06:26 [place] # 0.2 K/mm3 (0.0-0.8) 11/21/17 06:26 Eos # 0.0 K/mm3 (0.0-0.4) 11/21/17 06:26 Baso # 0.0 K/mm3 (0.0-0.1) 11/21/17 06:26 Add Manual Diff Complete 11/20/17 10:38 Total Counted 100 11/20/17 10:38 Seg Neutrophils % 83.4 % (40.0-70.0) H 11/21/17 06:26 Seg Neuts % (Manual) 61.0 % (40.0-70.0) 11/20/17 10:38 Band Neutrophils % 9.0 % 11/20/17 10:38 Lymphocytes % (Manual) 17.0 % (13.4-35.0) 11/20/17 10:38 Reactive Lymphs % (Man) 0 % 11/20/17 10:38 Monocytes % (Manual) 12.0 % (0.0-7.3) H 11/20/17 10:38 Eosinophils % (Manual) 1.0 % (0.0-4.3) 11/20/17 10:38 Basophils % (Manual) 0 % (0.0-1.8) 11/20/17 10:38 Metamyelocytes % 0 % 11/20/17 10:38 Myelocytes % 0 % 11/20/17 10:38 Promyelocytes % 0 % 11/20/17 10:38 Blast Cells % 0 % 11/20/17 10:38 Nucleated RBC % 1.0 % (0.0-0.9) H 11/20/17 10:38 Seg Neutrophils # 3.3 K/mm3 (1.8-7.7) 11/21/17 06:26 Seg Neutrophils # Man 4.8 K/mm3 (1.8-7.7) 11/20/17 10:38 Band Neutrophils # 0.7 K/mm3 11/20/17 10:38 Lymphocytes # (Manual) 1.3 K/mm3 (1.2-5.4) 11/20/17 10:38 Abs React Lymphs (Man) 0.0 K/mm3 11/20/17 10:38 Monocytes # (Manual) 0.9 K/mm3 (0.0-0.8) H 11/20/17 10:38 Eosinophils # (Manual) 0.1 K/mm3 (0.0-0.4) 11/20/17 10:38 Basophils # (Manual) 0.0 K/mm3 (0.0-0.1) 11/20/17 10:38 Metamyelocytes # 0.0 K/mm3 11/20/17 10:38 Myelocytes # 0.0 K/mm3 11/20/17 10:38 Promyelocytes # 0.0 K/mm3 11/20/17 10:38 Blast Cells # 0.0 K/mm3 11/20/17 10:38 WBC Morphology Not Reportable 11/20/17 10:38 Hypersegmented Neuts Not Reportable 11/20/17 10:38 Hyposegmented Neuts Not Reportable 11/20/17 10:38 Hypogranular Neuts Not Reportable 11/20/17 10:38 Smudge Cells Not Reportable 11/20/17 10:38 Toxic Granulation Not Reportable 11/20/17 10:38 Toxic Vacuolation Not Reportable 11/20/17 10:38 Dohle Bodies Not Reportable 11/20/17 10:38 Pelger-Huet Anomaly Not Reportable 11/20/17 10:38 Christina Rods Not Reportable 11/20/17 10:38 Platelet Estimate Consistent w auto 11/20/17 10:38 Clumped Platelets Not Reportable 11/20/17 10:38 Plt Clumps, EDTA Not Reportable 11/20/17 10:38 Large Platelets Not Reportable 11/20/17 10:38 Giant Platelets Not Reportable 11/20/17 10:38 Platelet Satelliting Not Reportable 11/20/17 10:38 Plt Morphology Comment Not Reportable 11/20/17 10:38 RBC Morphology Normal 11/20/17 10:38 Dimorphic RBCs Not Reportable 11/20/17 10:38 Polychromasia Not Reportable 11/20/17 10:38 Hypochromasia Not Reportable 11/20/17 10:38 Poikilocytosis Not Reportable 11/20/17 10:38 Anisocytosis Not Reportable 11/20/17 10:38 Microcytosis Not Reportable 11/20/17 10:38 Macrocytosis Not Reportable 11/20/17 10:38 Spherocytes Not Reportable 11/20/17 10:38 Pappenheimer Bodies Not Reportable 11/20/17 10:38 Sickle Cells Not Reportable 11/20/17 10:38 Target Cells Not Reportable 11/20/17 10:38 Tear Drop Cells Not Reportable 11/20/17 10:38 Ovalocytes Not Reportable 11/20/17 10:38 Helmet Cells Not Reportable 11/20/17 10:38 [place] Bodies Not Reportable 11/20/17 10:38 [place] Rings Not Reportable 11/20/17 10:38 [place] Cells Not Reportable 11/20/17 10:38 Bite Cells Not Reportable 11/20/17 10:38 Crenated Cell Not Reportable 11/20/17 10:38 Elliptocytes Not Reportable 11/20/17 10:38 Acanthocytes (Spur) Not Reportable 11/20/17 10:38 Rouleaux Not Reportable 11/20/17 10:38 Hemoglobin C Crystals Not Reportable 11/20/17 10:38 Schistocytes Not Reportable 11/20/17 10:38 Malaria parasites Not Reportable 11/20/17 10:38 Krishna Bodies Not Reportable 11/20/17 10:38 Hem Pathologist Commnt No 11/20/17 10:38 Sodium 131 mmol/L (137-145) L 11/21/17 09:00 Potassium 4.8 mmol/L (3.6-5.0) 11/21/17 09:00 Chloride 92.9 mmol/L (98-107) L 11/21/17 09:00 Carbon Dioxide 20 mmol/L (22-30) L 11/21/17 09:00 Anion Gap 23 mmol/L 11/21/17 09:00 BUN 15 mg/dL (9-20) 11/21/17 09:00 Creatinine 0.6 mg/dL (0.8-1.5) L 11/21/17 09:00 Estimated GFR > 60 ml/min 11/21/17 09:00 BUN/Creatinine Ratio 25 % 11/21/17 09:00 Glucose 169 mg/dL (75-100) H 11/21/17 09:00 Calcium 8.4 mg/dL (8.4-10.2) 11/21/17 09:00 Phosphorus 3.60 mg/dL (2.5-4.5) 11/21/17 09:00 Magnesium 2.10 mg/dL (1.7-2.3) 11/21/17 09:00 Total Bilirubin 0.50 mg/dL (0.1-1.2) 11/20/17 10:38 AST 10 units/L (5-40) 11/20/17 10:38 ALT 11 units/L (7-56) 11/20/17 10:38 Alkaline Phosphatase 76 units/L (35-129) 11/20/17 10:38 Total Protein 7.5 g/dL (6.3-8.2) 11/20/17 10:38 Albumin 3.6 g/dL (3.9-5) L 11/20/17 10:38 Albumin/Globulin Ratio 0.9 % 11/20/17 10:38 Lipase 19 units/L (13-60) 11/20/17 10:38 Urine Color Yellow (Yellow) 11/20/17 10:57 Urine Turbidity Clear (Clear) 11/20/17 10:57 Urine pH 5.0 (5.0-7.0) 11/20/17 10:57 Ur Specific [place] 1.028 (1.003-1.030) 11/20/17 10:57 Urine Protein 30 mg/dl mg/dL (Negative) 11/20/17 10:57 Urine Glucose (UA) Neg mg/dL (Negative) 11/20/17 10:57 Urine Ketones 20 mg/dL (Negative) 11/20/17 10:57 Urine Blood Sm (Negative) 11/20/17 10:57 Urine Nitrite Neg (Negative) 11/20/17 10:57 Urine Bilirubin Neg (Negative) 11/20/17 10:57 Urine Urobilinogen 2.0 mg/dL (<2.0) 11/20/17 10:57 Ur Leukocyte Esterase Neg (Negative) 11/20/17 10:57 Urine WBC (Auto) < 1.0 /HPF (0.0-6.0) 11/20/17 10:57 Urine RBC (Auto) 1.0 /HPF (0.0-6.0) 11/20/17 10:57 Urine Mucus 1+ /HPF 11/20/17 10:57 Hep Bs Antigen Non-reactive (Negative) 11/20/17 15:23 Hepatitis C Antibody Non-reactive (NonReactive) 11/20/17 15:23
[2017-11-21] MEDS: NACL 0.9% 1000 ML 2,000 ML IV SCH (21:01)
[2017-11-22] MEDS: NACL 0.9% 1000 ML 2,000 ML IV SCH (04:30)
[2017-11-22] MEDS: FLAGYL 500 MG/100 ML 500 MG/100 ML BAG IV SCH ×3 (06:19→22:32)
[2017-11-22 07:47] LABS: Hemoglobin 12.5 gm/dl (11.8-15.2); Lymphocytes # (Auto) 0.5 K/mm3 (1.2-5.4); Lymphocytes % (Auto) 8.7 % (13.4-35.0); Mean Corpuscular HGB Conc 33 % (32-34); Mean Corpuscular Hemoglobin 28 pg (28-32); Mean Corpuscular Volume 85 fl (84-94); Monocytes # (Auto) 0.4 K/mm3 (0.0-0.8); Monocytes % (Auto) 6.8 % (0.0-7.3); Platelet Count 226 K/mm3 (140-440); Red Blood Count 4.49 M/mm3 (3.65-5.03); Red Cell Distribution Width 15.3 % (13.2-15.2)
[2017-11-22] MEDS: LEVAQUIN 750MG/150ML 750 MG/150 ML BAG IV SCH (07:52)
[2017-11-22 08:05] LABS: BUN/Creatinine Ratio 20; Blood Urea Nitrogen 12 mg/dL (9-20); Calcium 8.9 mg/dL (8.4-10.2); Hemolysis Index 9
--- NOTE | 2017-11-22 08:53 | Progress Note ---
Assessment and Plan Assessment and plan: 47 YO Male with Crohn's Disease, DM Nicotine Dependence presents to ED for evaluation. Pt states that he has experienced intermittent abdominal pain for the past 2 months with worsening symptoms over the past 2 days. Pt states that pain is 7/10, intermittent, colicky, and is associated with nausea and vomiting. Pt seen and evaluated in ED and underwent CT scan of the abdomen, and is consistent with Crohn's disease flare. GI consulted in ED and patient started on IV steroid therapy. Surgery team consulted as well. Crohn's disease flare, his terminal ileitis Patient may need biopsy to rule out lymphoma - Patient is on IV steroids - GI consult appreciated - Patient is on empiric IV Levaquin and Flagyl - Pain control Partial small bowel obstruction - Surgery consult appreciated - Recommend to start on clear liquid diet Dehydration, with hyponatremia and hypochloremia - Patient is on IV fluid DVT prophylaxis - SCDs, in case the patient needs surgical intervention Disposition - Continue inpatient care History Interval history: Patient was seen and evaluated this morning, he still have abdominal pain but is getting better. Hospitalist Physical - Physical exam Narrative exam: Not in cardiopulmonary distress. The patient appeared well nourished and normally developed. Vital signs as documented. Head exam is unremarkable. No scleral icterus . Neck is without jugular venous distension, thyromegaly, or carotid bruits. Lungs are clear to auscultation. Cardiac exam reveals regular rate and Rhythm. First and second heart sounds normal. No murmurs, rubs or gallops. Abdominal exam mild abdominal tenderness, no guarding or rigidity. Extremities are nonedematous and both femoral and pedal pulses are normal. 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 No focal weakness. - Constitutional Vitals: Temp Pulse Resp BP Pulse Ox 98.4 F 84 18 123/74 99 11/21/17 16:23 11/21/17 16:23 11/21/17 22:00 11/21/17 16:23 11/21/17 22:00 General appearance: Present: mild distress Results - Labs CBC & Chem 7: 11/22/17 07:23 11/22/17 07:23 Labs: Laboratory Last Values WBC 5.6 K/mm3 (4.5-11.0) 11/22/17 07:23 RBC 4.49 M/mm3 (3.65-5.03) 11/22/17 07:23 Hgb 12.5 gm/dl (11.8-15.2) 11/22/17 07:23 Hct 38.0 % (35.5-45.6) 11/22/17 07:23 MCV 85 fl (84-94) 11/22/17 07:23 MCH 28 pg (28-32) 11/22/17 07:23 MCHC 33 % (32-34) 11/22/17 07:23 RDW 15.3 % (13.2-15.2) H 11/22/17 07:23 Plt Count 226 K/mm3 (140-440) 11/22/17 07:23 Lymph % (Auto) 8.7 % (13.4-35.0) L 11/22/17 07:23 [place] % (Auto) 6.8 % (0.0-7.3) 11/22/17 07:23 Eos % (Auto) 0.0 % (0.0-4.3) 11/22/17 07:23 Baso % (Auto) 0.0 % (0.0-1.8) 11/22/17 07:23 Lymph # 0.5 K/mm3 (1.2-5.4) L 11/22/17 07:23 [place] # 0.4 K/mm3 (0.0-0.8) 11/22/17 07:23 Eos # 0.0 K/mm3 (0.0-0.4) 11/22/17 07:23 Baso # 0.0 K/mm3 (0.0-0.1) 11/22/17 07:23 Add Manual Diff Complete 11/20/17 10:38 Total Counted 100 11/20/17 10:38 Seg Neutrophils % 84.5 % (40.0-70.0) H 11/22/17 07:23 Seg Neuts % (Manual) 61.0 % (40.0-70.0) 11/20/17 10:38 Band Neutrophils % 9.0 % 11/20/17 10:38 Lymphocytes % (Manual) 17.0 % (13.4-35.0) 11/20/17 10:38 Reactive Lymphs % (Man) 0 % 11/20/17 10:38 Monocytes % (Manual) 12.0 % (0.0-7.3) H 11/20/17 10:38 Eosinophils % (Manual) 1.0 % (0.0-4.3) 11/20/17 10:38 Basophils % (Manual) 0 % (0.0-1.8) 11/20/17 10:38 Metamyelocytes % 0 % 11/20/17 10:38 Myelocytes % 0 % 11/20/17 10:38 Promyelocytes % 0 % 11/20/17 10:38 Blast Cells % 0 % 11/20/17 10:38 Nucleated RBC % 1.0 % (0.0-0.9) H 11/20/17 10:38 Seg Neutrophils # 4.8 K/mm3 (1.8-7.7) 11/22/17 07:23 Seg Neutrophils # Man 4.8 K/mm3 (1.8-7.7) 11/20/17 10:38 Band Neutrophils # 0.7 K/mm3 11/20/17 10:38 Lymphocytes # (Manual) 1.3 K/mm3 (1.2-5.4) 11/20/17 10:38 Abs React Lymphs (Man) 0.0 K/mm3 11/20/17 10:38 Monocytes # (Manual) 0.9 K/mm3 (0.0-0.8) H 11/20/17 10:38 Eosinophils # (Manual) 0.1 K/mm3 (0.0-0.4) 11/20/17 10:38 Basophils # (Manual) 0.0 K/mm3 (0.0-0.1) 11/20/17 10:38 Metamyelocytes # 0.0 K/mm3 11/20/17 10:38 Myelocytes # 0.0 K/mm3 11/20/17 10:38 Promyelocytes # 0.0 K/mm3 11/20/17 10:38 Blast Cells # 0.0 K/mm3 11/20/17 10:38 WBC Morphology Not Reportable 11/20/17 10:38 Hypersegmented Neuts Not Reportable 11/20/17 10:38 Hyposegmented Neuts Not Reportable 11/20/17 10:38 Hypogranular Neuts Not Reportable 11/20/17 10:38 Smudge Cells Not Reportable 11/20/17 10:38 Toxic Granulation Not Reportable 11/20/17 10:38 Toxic Vacuolation Not Reportable 11/20/17 10:38 Dohle Bodies Not Reportable 11/20/17 10:38 Pelger-Huet Anomaly Not Reportable 11/20/17 10:38 Christina Rods Not Reportable 11/20/17 10:38 Platelet Estimate Consistent w auto 11/20/17 10:38 Clumped Platelets Not Reportable 11/20/17 10:38 Plt Clumps, EDTA Not Reportable 11/20/17 10:38 Large Platelets Not Reportable 11/20/17 10:38 Giant Platelets Not Reportable 11/20/17 10:38 Platelet Satelliting Not Reportable 11/20/17 10:38 Plt Morphology Comment Not Reportable 11/20/17 10:38 RBC Morphology Normal 11/20/17 10:38 Dimorphic RBCs Not Reportable 11/20/17 10:38 Polychromasia Not Reportable 11/20/17 10:38 Hypochromasia Not Reportable 11/20/17 10:38 Poikilocytosis Not Reportable 11/20/17 10:38 Anisocytosis Not Reportable 11/20/17 10:38 Microcytosis Not Reportable 11/20/17 10:38 Macrocytosis Not Reportable 11/20/17 10:38 Spherocytes Not Reportable 11/20/17 10:38 Pappenheimer Bodies Not Reportable 11/20/17 10:38 Sickle Cells Not Reportable 11/20/17 10:38 Target Cells Not Reportable 11/20/17 10:38 Tear Drop Cells Not Reportable 11/20/17 10:38 Ovalocytes Not Reportable 11/20/17 10:38 Helmet Cells Not Reportable 11/20/17 10:38 Cleary-Clay Bodies Not Reportable 11/20/17 10:38 [place] Rings Not Reportable 11/20/17 10:38 [place] Cells Not Reportable 11/20/17 10:38 Bite Cells Not Reportable 11/20/17 10:38 Crenated Cell Not Reportable 11/20/17 10:38 Elliptocytes Not Reportable 11/20/17 10:38 Acanthocytes (Spur) Not Reportable 11/20/17 10:38 Rouleaux Not Reportable 11/20/17 10:38 Hemoglobin C Crystals Not Reportable 11/20/17 10:38 Schistocytes Not Reportable 11/20/17 10:38 Malaria parasites Not Reportable 11/20/17 10:38 Krishna Bodies Not Reportable 11/20/17 10:38 Hem Pathologist Commnt No 11/20/17 10:38 Sodium 138 mmol/L (137-145) D 11/22/17 07:23 Potassium 5.4 mmol/L (3.6-5.0) H 11/22/17 07:23 Chloride 101.2 mmol/L (98-107) 11/22/17 07:23 Carbon Dioxide 25 mmol/L (22-30) 11/22/17 07:23 Anion Gap 17 mmol/L 11/22/17 07:23 BUN 12 mg/dL (9-20) 11/22/17 07:23 Creatinine 0.6 mg/dL (0.8-1.5) L 11/22/17 07:23 Estimated GFR > 60 ml/min 11/22/17 07:23 BUN/Creatinine Ratio 20 % 11/22/17 07:23 Glucose 157 mg/dL (75-100) H 11/22/17 07:23 Calcium 8.9 mg/dL (8.4-10.2) 11/22/17 07:23 Phosphorus 3.60 mg/dL (2.5-4.5) 11/21/17 09:00 Magnesium 2.10 mg/dL (1.7-2.3) 11/21/17 09:00 Total Bilirubin 0.50 mg/dL (0.1-1.2) 11/20/17 10:38 AST 10 units/L (5-40) 11/20/17 10:38 ALT 11 units/L (7-56) 11/20/17 10:38 Alkaline Phosphatase 76 units/L (35-129) 11/20/17 10:38 Total Protein 7.5 g/dL (6.3-8.2) 11/20/17 10:38 Albumin 3.6 g/dL (3.9-5) L 11/20/17 10:38 Albumin/Globulin Ratio 0.9 % 11/20/17 10:38 Lipase 19 units/L (13-60) 11/20/17 10:38 Urine Color Yellow (Yellow) 11/20/17 10:57 Urine Turbidity Clear (Clear) 11/20/17 10:57 Urine pH 5.0 (5.0-7.0) 11/20/17 10:57 Ur Specific [place] 1.028 (1.003-1.030) 11/20/17 10:57 Urine Protein 30 mg/dl mg/dL (Negative) 11/20/17 10:57 Urine Glucose (UA) Neg mg/dL (Negative) 11/20/17 10:57 Urine Ketones 20 mg/dL (Negative) 11/20/17 10:57 Urine Blood Sm (Negative) 11/20/17 10:57 Urine Nitrite Neg (Negative) 11/20/17 10:57 Urine Bilirubin Neg (Negative) 11/20/17 10:57 Urine Urobilinogen 2.0 mg/dL (<2.0) 11/20/17 10:57 Ur Leukocyte Esterase Neg (Negative) 11/20/17 10:57 Urine WBC (Auto) < 1.0 /HPF (0.0-6.0) 11/20/17 10:57 Urine RBC (Auto) 1.0 /HPF (0.0-6.0) 11/20/17 10:57 Urine Mucus 1+ /HPF 11/20/17 10:57 Hep Bs Antigen Non-reactive (Negative) 11/21/17 17:00 Hepatitis C Antibody Non-reactive (NonReactive) 11/20/17 15:23
--- NOTE | 2017-11-22 10:29 | Gastroenterology Progress Note ---
Assessment and Plan - Patient Problems (1) Exacerbation of Crohn's disease Current Visit: Yes Status: Acute Qualifiers: Digestive disease complication type: with intestinal obstruction Qualified Code(s): K50.912 - Crohn's disease, unspecified, with intestinal obstruction Plan to address problem: Obstruction is resolving. Still has considerable pain. Will continue high dose IV steroids overnight, advance to full liquids. (2) Partial small bowel obstruction Current Visit: Yes Status: Acute Subjective Date of service: 11/22/17 Principal diagnosis: Crohn's ileocolitis Interval history: Feels better, but still has a lot of pain. No nausea or vomiting. Tolerating clears. Objective - Constitutional Vitals: Temp Pulse Resp BP Pulse Ox 97.7 F 85 20 113/89 99 11/22/17 09:16 11/22/17 09:16 11/22/17 09:16 11/22/17 09:16 11/22/17 09:16 General appearance: mild distress - EENT ENT: hearing intact, clear oral mucosa, dentition normal - Neck Neck: supple, normal ROM - Respiratory Respiratory effort: normal Respiratory: bilateral: CTA - Cardiovascular Rhythm: regular - Gastrointestinal General gastrointestinal: Present: soft, tender (RLQ tenderness. No rebound or guarding. Long midline scar and RLQ scar.), non-distended, normal bowel sounds Rectal Exam: deferred - Neurologic Neurological: alert and oriented x3 - Labs CBC & Chem 7: 11/22/17 07:23 11/22/17 07:23 Labs: Laboratory Results - last 24 hr 11/21/17 11/22/17 11/22/17 17:00 07:23 07:23 WBC 5.6 RBC 4.49 Hgb 12.5 Hct 38.0 MCV 85 MCH 28 MCHC 33 RDW 15.3 H Plt Count 226 Lymph % (Auto) 8.7 L [place] % (Auto) 6.8 Eos % (Auto) 0.0 Baso % (Auto) 0.0 Lymph # 0.5 L [place] # 0.4 Eos # 0.0 Baso # 0.0 Seg Neutrophils % 84.5 H Seg Neutrophils # 4.8 Sodium 138 D Potassium 5.4 H Chloride 101.2 Carbon Dioxide 25 Anion Gap 17 BUN 12 Creatinine 0.6 L Estimated GFR > 60 BUN/Creatinine Ratio 20 Glucose 157 H Calcium 8.9 Hep Bs Antigen Non-reactive
[2017-11-22] MEDS: MORPHINE IV PRN (11:40)
--- NOTE | 2017-11-22 12:42 | Progress Note ---
Assessment and Plan 47-year-old male with 1. Partial small bowel obstruction - improving 2. Terminal ileitis 3. Crohn's disease 4. hypoNa, hypoCl - likely secondary to volume contraction from dehydration Plan: 1. adv diet per GI 2. dc IV fluids - hypoNa, hypoCl resolved 3. IV antibiotics - levaquin and flagyl started 4. Pain and nausea control when necessary - transition to oral pain meds 5. DVT prophylaxis 6. IV steroids 7. dc planning per 1' team. No indication for acute surgical intervention. Will sign off. Thank you for this consultation. Please call with any questions or concerns. Subjective Date of service: 11/22/17 Narrative: Pt seen and examined. Abd pain improving, now more localized to RLQ. No n/v, cp , sob. +flatus but no BM yet. Tolerating clear liquid diet Objective Vital Signs - 12hr 11/22/17 11/22/17 09:16 11:40 Temperature 97.7 F Pulse Rate 85 Respiratory 20 20 Rate Blood Pressure 113/89 O2 Sat by Pulse 99 Oximetry - General physical appearance Narrative Exam: Gen: AAOx3. NAD CV: S1, S2+ resp: No audible wheezes Abd: soft, ND, +RLQ TTP, no r/r/g. Ext: no c/c/e - Labs 11/22/17 07:23 11/22/17 07:23 Diabetes panel 11/22/17 Range/Units 07:23 Sodium 138 D (137-145) mmol/L Potassium 5.4 H (3.6-5.0) mmol/L Chloride 101.2 (98-107) mmol/L Carbon Dioxide 25 (22-30) mmol/L BUN 12 (9-20) mg/dL Creatinine 0.6 L (0.8-1.5) mg/dL Glucose 157 H (75-100) mg/dL Calcium 8.9 (8.4-10.2) mg/dL Calcium panel 11/22/17 Range/Units 07:23 Calcium 8.9 (8.4-10.2) mg/dL Pituitary panel 11/22/17 Range/Units 07:23 Sodium 138 D (137-145) mmol/L Potassium 5.4 H (3.6-5.0) mmol/L Chloride 101.2 (98-107) mmol/L Carbon Dioxide 25 (22-30) mmol/L BUN 12 (9-20) mg/dL Creatinine 0.6 L (0.8-1.5) mg/dL Glucose 157 H (75-100) mg/dL Calcium 8.9 (8.4-10.2) mg/dL Adrenal panel 11/22/17 Range/Units 07:23 Sodium 138 D (137-145) mmol/L Potassium 5.4 H (3.6-5.0) mmol/L Chloride 101.2 (98-107) mmol/L Carbon Dioxide 25 (22-30) mmol/L BUN 12 (9-20) mg/dL Creatinine 0.6 L (0.8-1.5) mg/dL Glucose 157 H (75-100) mg/dL Calcium 8.9 (8.4-10.2) mg/dL
[2017-11-22] MEDS ORDERED: NACL 0.9% 1000 ML 1,000 ML IV SCH (13:00)
[2017-11-22] MEDS ORDERED: CITRATE OF MAGNESIA PO ONE (13:00)
[2017-11-22] MEDS: NORCO 5/325 PO PRN ×2 (13:19→22:31)
--- NOTE | 2017-11-22 15:33 | Progress Note ---
Assessment and Plan Assessment and plan: 47 YO Male with Crohn's Disease, DM Nicotine Dependence presents to ED for evaluation. Pt states that he has experienced intermittent abdominal pain for the past 2 months with worsening symptoms over the past 2 days. Pt states that pain is 7/10, intermittent, colicky, and is associated with nausea and vomiting. Pt seen and evaluated in ED and underwent CT scan of the abdomen, and is consistent with Crohn's disease flare. GI consulted in ED and patient started on IV steroid therapy. Surgery team consulted as well. Crohn's disease flare, his terminal ileitis Patient may need biopsy to rule out lymphoma - Patient is on IV steroids - GI consult appreciated - Patient is on empiric IV Levaquin and Flagyl - Pain control Partial small bowel obstruction, no surgical intervention needed at this time - Surgery consult appreciated - Advance diet Dehydration, with hyponatremia and hypochloremia - Resolved DVT prophylaxis - on lovenox Constipation, given mag citrate Mild hyperkalemia - We'll follow BMP in the morning Disposition - Possible discharge tomorrow History Interval history: Patient was seen and evaluated this morning, patient is complaining pain, likely due to constipation. Hospitalist Physical - Physical exam Narrative exam: Not in cardiopulmonary distress. The patient appeared well nourished and normally developed. Vital signs as documented. Head exam is unremarkable. No scleral icterus . Neck is without jugular venous distension, thyromegaly, or carotid bruits. Lungs are clear to auscultation. Cardiac exam reveals regular rate and Rhythm. First and second heart sounds normal. No murmurs, rubs or gallops. Abdominal exam mild abdominal tenderness, no guarding or rigidity. Extremities are nonedematous and both femoral and pedal pulses are normal. 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 No focal weakness. - Constitutional Vitals: Temp Pulse Resp BP Pulse Ox 97.7 F 85 20 113/89 99 11/22/17 09:16 11/22/17 09:16 11/22/17 13:22 11/22/17 09:16 11/22/17 09:16 General appearance: Present: mild distress Results - Labs CBC & Chem 7: 11/22/17 07:23 11/22/17 07:23 Labs: Laboratory Last Values WBC 5.6 K/mm3 (4.5-11.0) 11/22/17 07:23 RBC 4.49 M/mm3 (3.65-5.03) 11/22/17 07:23 Hgb 12.5 gm/dl (11.8-15.2) 11/22/17 07:23 Hct 38.0 % (35.5-45.6) 11/22/17 07:23 MCV 85 fl (84-94) 11/22/17 07:23 MCH 28 pg (28-32) 11/22/17 07: MCHC 33 % (32-34) 11/22/17 07:23 RDW 15.3 % (13.2-15.2) H 11/22/17 07:23 Plt Count 226 K/mm3 (140-440) 11/22/17 07:23 Lymph % (Auto) 8.7 % (13.4-35.0) L 11/22/17 07:23 [place] % (Auto) 6.8 % (0.0-7.3) 11/22/17 07:23 Eos % (Auto) 0.0 % (0.0-4.3) 11/22/17 07:23 Baso % (Auto) 0.0 % (0.0-1.8) 11/22/17 07:23 Lymph # 0.5 K/mm3 (1.2-5.4) L 11/22/17 07:23 [place] # 0.4 K/mm3 (0.0-0.8) 11/22/17 07:23 Eos # 0.0 K/mm3 (0.0-0.4) 11/22/17 07:23 Baso # 0.0 K/mm3 (0.0-0.1) 11/22/17 07:23 Add Manual Diff Complete 11/20/17 10:38 Total Counted 100 11/20/17 10:38 Seg Neutrophils % 84.5 % (40.0-70.0) H 11/22/17 07:23 Seg Neuts % (Manual) 61.0 % (40.0-70.0) 11/20/17 10:38 Band Neutrophils % 9.0 % 11/20/17 10:38 Lymphocytes % (Manual) 17.0 % (13.4-35.0) 11/20/17 10:38 Reactive Lymphs % (Man) 0 % 11/20/17 10:38 Monocytes % (Manual) 12.0 % (0.0-7.3) H 11/20/17 10:38 Eosinophils % (Manual) 1.0 % (0.0-4.3) 11/20/17 10:38 Basophils % (Manual) 0 % (0.0-1.8) 11/20/17 10:38 Metamyelocytes % 0 % 11/20/17 10:38 Myelocytes % 0 % 11/20/17 10:38 Promyelocytes % 0 % 11/20/17 10:38 Blast Cells % 0 % 11/20/17 10:38 Nucleated RBC % 1.0 % (0.0-0.9) H 11/20/17 10:38 Seg Neutrophils # 4.8 K/mm3 (1.8-7.7) 11/22/17 07:23 Seg Neutrophils # Man 4.8 K/mm3 (1.8-7.7) 11/20/17 10:38 Band Neutrophils # 0.7 K/mm3 11/20/17 10:38 Lymphocytes # (Manual) 1.3 K/mm3 (1.2-5.4) 11/20/17 10:38 Abs React Lymphs (Man) 0.0 K/mm3 11/20/17 10:38 Monocytes # (Manual) 0.9 K/mm3 (0.0-0.8) H 11/20/17 10:38 Eosinophils # (Manual) 0.1 K/mm3 (0.0-0.4) 11/20/17 10:38 Basophils # (Manual) 0.0 K/mm3 (0.0-0.1) 11/20/17 10:38 Metamyelocytes # 0.0 K/mm3 11/20/17 10:38 Myelocytes # 0.0 K/mm3 11/20/17 10:38 Promyelocytes # 0.0 K/mm3 11/20/17 10:38 Blast Cells # 0.0 K/mm3 11/20/17 10:38 WBC Morphology Not Reportable 11/20/17 10:38 Hypersegmented Neuts Not Reportable 11/20/17 10:38 Hyposegmented Neuts Not Reportable 11/20/17 10:38 Hypogranular Neuts Not Reportable 11/20/17 10:38 Smudge Cells Not Reportable 11/20/17 10:38 Toxic Granulation Not Reportable 11/20/17 10:38 Toxic Vacuolation Not Reportable 11/20/17 10:38 Dohle Bodies Not Reportable 11/20/17 10:38 Pelger-Huet Anomaly Not Reportable 11/20/17 10:38 Christina Rods Not Reportable 11/20/17 10:38 Platelet Estimate Consistent w auto 11/20/17 10:38 Clumped Platelets Not Reportable 11/20/17 10:38 Plt Clumps, EDTA Not Reportable 11/20/17 10:38 Large Platelets Not Reportable 11/20/17 10:38 Giant Platelets Not Reportable 11/20/17 10:38 Platelet Satelliting Not Reportable 11/20/17 10:38 Plt Morphology Comment Not Reportable 11/20/17 10:38 RBC Morphology Normal 11/20/17 10:38 Dimorphic RBCs Not Reportable 11/20/17 10:38 Polychromasia Not Reportable 11/20/17 10:38 Hypochromasia Not Reportable 11/20/17 10:38 Poikilocytosis Not Reportable 11/20/17 10:38 Anisocytosis Not Reportable 11/20/17 10:38 Microcytosis Not Reportable 11/20/17 10:38 Macrocytosis Not Reportable 11/20/17 10:38 Spherocytes Not Reportable 11/20/17 10:38 Pappenheimer Bodies Not Reportable 11/20/17 10:38 Sickle Cells Not Reportable 11/20/17 10:38 Target Cells Not Reportable 11/20/17 10:38 Tear Drop Cells Not Reportable 11/20/17 10:38 Ovalocytes Not Reportable 11/20/17 10:38 Helmet Cells Not Reportable 11/20/17 10:38 Cleary-Debary Bodies Not Reportable 11/20/17 10:38 [place] Rings Not Reportable 11/20/17 10:38 [place] Cells Not Reportable 11/20/17 10:38 Bite Cells Not Reportable 11/20/17 10:38 Crenated Cell Not Reportable 11/20/17 10:38 Elliptocytes Not Reportable 11/20/17 10:38 Acanthocytes (Spur) Not Reportable 11/20/17 10:38 Rouleaux Not Reportable 11/20/17 10:38 Hemoglobin C Crystals Not Reportable 11/20/17 10:38 Schistocytes Not Reportable 11/20/17 10:38 Malaria parasites Not Reportable 11/20/17 10:38 Krishna Bodies Not Reportable 11/20/17 10:38 Hem Pathologist Commnt No 11/20/17 10:38 Sodium 138 mmol/L (137-145) D 11/22/17 07:23 Potassium 5.4 mmol/L (3.6-5.0) H 11/22/17 07:23 Chloride 101.2 mmol/L (98-107) 11/22/17 07:23 Carbon Dioxide 25 mmol/L (22-30) 11/22/17 07:23 Anion Gap 17 mmol/L 11/22/17 07:23 BUN 12 mg/dL (9-20) 11/22/17 07:23 Creatinine 0.6 mg/dL (0.8-1.5) L 11/22/17 07:23 Estimated GFR > 60 ml/min 11/22/17 07:23 BUN/Creatinine Ratio 20 % 11/22/17 07:23 Glucose 157 mg/dL (75-100) H 11/22/17 07:23 Calcium 8.9 mg/dL (8.4-10.2) 11/22/17 07:23 Phosphorus 3.60 mg/dL (2.5-4.5) 11/21/17 09:00 Magnesium 2.10 mg/dL (1.7-2.3) 11/21/17 09:00 Total Bilirubin 0.50 mg/dL (0.1-1.2) 11/20/17 10:38 AST 10 units/L (5-40) 11/20/17 10:38 ALT 11 units/L (7-56) 11/20/17 10:38 Alkaline Phosphatase 76 units/L (35-129) 11/20/17 10:38 Total Protein 7.5 g/dL (6.3-8.2) 11/20/17 10:38 Albumin 3.6 g/dL (3.9-5) L 11/20/17 10:38 Albumin/Globulin Ratio 0.9 % 11/20/17 10:38 Lipase 19 units/L (13-60) 11/20/17 10:38 Urine Color Yellow (Yellow) 11/20/17 10:57 Urine Turbidity Clear (Clear) 11/20/17 10:57 Urine pH 5.0 (5.0-7.0) 11/20/17 10:57 Ur Specific [place] 1.028 (1.003-1.030) 11/20/17 10:57 Urine Protein 30 mg/dl mg/dL (Negative) 11/20/17 10:57 Urine Glucose (UA) Neg mg/dL (Negative) 11/20/17 10:57 Urine Ketones 20 mg/dL (Negative) 11/20/17 10:57 Urine Blood Sm (Negative) 11/20/17 10:57 Urine Nitrite Neg (Negative) 11/20/17 10:57 Urine Bilirubin Neg (Negative) 11/20/17 10:57 Urine Urobilinogen 2.0 mg/dL (<2.0) 11/20/17 10:57 Ur Leukocyte Esterase Neg (Negative) 11/20/17 10:57 Urine WBC (Auto) < 1.0 /HPF (0.0-6.0) 11/20/17 10:57 Urine RBC (Auto) 1.0 /HPF (0.0-6.0) 11/20/17 10:57 Urine Mucus 1+ /HPF 11/20/17 10:57 Hep Bs Antigen Non-reactive (Negative) 11/21/17 17:00 Hepatitis C Antibody Non-reactive (NonReactive) 11/20/17 15:23
[2017-11-23] MEDS: FLAGYL 500 MG/100 ML 500 MG/100 ML BAG IV SCH (05:45)
[2017-11-23] MEDS: NORCO 5/325 PO PRN ×2 (05:46→10:55)
[2017-11-23 06:03] LABS: BUN/Creatinine Ratio 20; Blood Urea Nitrogen 12 mg/dL (9-20); Calcium 8.5 mg/dL (8.4-10.2); Hemolysis Index 7
[2017-11-23] MEDS: LEVAQUIN 750MG/150ML 750 MG/150 ML BAG IV SCH (07:05)
[2017-11-23 09:08] VITALS: BP 131/78
--- NOTE | 2017-11-23 09:24 | Gastroenterology Progress Note ---
Assessment and Plan 1.exacerbation of Crohn's disease 2.partial small bowel obstruction -obstruction is resolving -clinically pt reports feeling better with abd pain improving and no N/V. Tolerating full liquids -Will transition pt from IV steroid to PO today -continue supportive care -recommend continuing full liquids and advance to a low residue diet as tolerated -pt is okay to be d/c from a GI standpoint on a steroid taper starting at 60mg daily and decreasing by 10mg each week with a f/u clinic appt in 2-3 weeks to schedule outpatient colonoscopy -will sign off, please re-consult if needed Subjective Date of service: 11/23/17 Principal diagnosis: Crohn's ileocolitis Interval history: Patient resting in bed. No acute distress. Reports feeling better with abd pain improving and no N/V. Tolerating full liquids. Objective - Constitutional Vitals: Temp Pulse Resp BP Pulse Ox 97.4 F L 60 20 131/78 100 11/23/17 08:36 11/23/17 08:36 11/23/17 08:36 11/23/17 08:36 11/23/17 08:36 General appearance: no acute distress - Respiratory Respiratory: bilateral: CTA - Cardiovascular Rhythm: regular Heart Sounds: Present: S1 & S2 - Gastrointestinal General gastrointestinal: Present: soft, tender (mild tenderness to RLQ), non- distended, normal bowel sounds, other ( No rebound or guarding, Long midline scar and RLQ scar) - Neurologic Neurological: alert and oriented x3 - Labs CBC & Chem 7: 11/22/17 07:23 11/23/17 05:02 Labs: Laboratory Results - last 24 hr 11/23/17 05:02 Sodium 136 L Potassium 4.5 Chloride 98.9 Carbon Dioxide 24 Anion Gap 18 BUN 12 Creatinine 0.6 L Estimated GFR > 60 BUN/Creatinine Ratio 20 Glucose 169 H Calcium 8.5
--- NOTE | 2017-11-23 10:59 | Discharge Summary ---
Providers - Providers Date of Admission: 11/20/17 14:27 Date of discharge: 11/23/17 Attending physician: RASTA JOVEL MD 11/20/17 12:45 Consult to Physician [CONS] Urgent Consulting Provider: MICHAEL BOLAÑOS Reason For Exam: partial small bowel obstruction Place consult to:: phone Notified:: y 11/20/17 13:17 Consult to Physician [CONS] Urgent Consulting Provider: STORM LLANES Reason For Exam: Crohn's flare, partial small bowel obstruction Place consult to:: phone Notified:: y Primary care physician: CAKE MIXER Hospitalization Reason for admission: Crhon's disease exacerbation Condition: Fair Disposition: DC- TO HOME OR SELFCARE Time spent for discharge: 31 minutes - Discharge Diagnoses (1) Acute abdominal pain Status: Acute (2) Diabetes Status: Acute (3) Exacerbation of Crohn's disease Status: Acute Qualifiers: Digestive disease complication type: with intestinal obstruction Qualified Code(s): K50.912 - Crohn's disease, unspecified, with intestinal obstruction (4) Partial small bowel obstruction Status: Acute Core Measure Documentation - Palliative Care Palliative Care/ Comfort Measures: Not Applicable - Core Measures Any of the following diagnoses?: none Exam - Physical Exam Narrative exam: Not in cardiopulmonary distress. The patient appeared well nourished and normally developed. Vital signs as documented. Head exam is unremarkable. No scleral icterus . Neck is without jugular venous distension, thyromegaly, or carotid bruits. Lungs are clear to auscultation. Cardiac exam reveals regular rate and Rhythm. First and second heart sounds normal. No murmurs, rubs or gallops. Abdominal exam mild abdominal tenderness, no guarding or rigidity. Extremities are nonedematous and both femoral and pedal pulses are normal. HAND SANDER: Alert and oriented 3. No focal weakness. - Constitutional Vitals: Temp Pulse Resp BP Pulse Ox 97.4 F L 60 20 131/78 100 11/23/17 08:36 11/23/17 08:36 11/23/17 08:36 11/23/17 08:36 11/23/17 10:00 Plan Diet: diabetic, advance as tolerated Follow up with: FLORI ANGELES MD [Primary Care Provider] - 7 Days STORM LLANES MD [Staff Physician] - 14 Days Prescriptions: Oxycodone HCl/Acetaminophen [Percocet 7.5/325 mg] 1 each PO Q6HR PRN #15 tablet PRN Reason: Pain predniSONE [Deltasone] 60 mg PO QDAY #36 tablet
[2017-11-23] MEDS ORDERED: DELTASONE PO SCH (12:00)
== END 2017-11-23 18:35 | disposition home or self-care (01) | DRG 386 ==
LOC: ED 10:01 → 3A 14:27
PROVIDERS: ADMIT Internal Medicine; ATTEND Internal Medicine
DX: K50.012 Crohn's disease of small intestine with intestinal obstruction (principal); E87.1 Hypo-osmolality and hyponatremia; E11.9 Type 2 diabetes mellitus without complications; E86.0 Dehydration; F17.210 Nicotine dependence, cigarettes, uncomplicated; F12.90 Cannabis use, unspecified, uncomplicated; Z80.1 Family history of malignant neoplasm of trachea, bronchus and lung; Z80.8 Family history of malignant neoplasm of other organs or systems
CPT/HCPCS: 36415; 74177; 80048; 80053; 81001; 82164; 83690; 83735; 84100; 85007; 85025; 86705; 86706; 86709; 86803; 93005; 93010; 96361; 96374; 96375; J1956; J2270; J2405; J2920; J3010; J7030; J7512; Q9967

== ENCOUNTER 2017-12-17 14:47 | Inpatient (IN) | payer OTHER ==
[2017-12-17 17:17] LABS: Basophils % (Auto) 0.1 % (0.0-1.8); Eosinophils % (Auto) 0.1 % (0.0-4.3); Hemoglobin 13.7 gm/dl (11.8-15.2); Lymphocytes # (Auto) 0.4 K/mm3 (1.2-5.4); Lymphocytes % (Auto) 5.6 % (13.4-35.0); Mean Corpuscular HGB Conc 32 % (32-34); Mean Corpuscular Hemoglobin 28 pg (28-32); Mean Corpuscular Volume 87 fl (84-94); Platelet Count 276 K/mm3 (140-440); Red Blood Count 4.93 M/mm3 (3.65-5.03); Red Cell Distribution Width 17.6 % (13.2-15.2)
[2017-12-17 17:33] LABS: Alanine Aminotransferase 12 units/L (7-56); Albumin 3.7 g/dL (3.9-5); BUN/Creatinine Ratio 24; Blood Urea Nitrogen 17 mg/dL (9-20); Calcium 9.6 mg/dL (8.4-10.2); Hemolysis Index 9; Lipase 20 units/L (13-60)
[2017-12-17 18:38] LABS: Bilirubin,Urine NEG (Negative); Blood,Urine NEG (Negative); Color,Urine Yellow (Yellow); Mucus,Urine FEW /HPF; Nitrite,Urine NEG (Negative); Protein,Urine <15 mg/dL mg/dL (Negative); Urobilinogen,Urine < 2.0 mg/dL (<2.0); WBC,Urine < 1.0 /HPF (0.0-6.0)
[2017-12-17] MEDS ORDERED: TORADOL IM ONE (18:56)
--- NOTE | 2017-12-17 18:58 | Emergency Department Report ---
Blank Doc - Documentation Documentation: Patient is 47 years old male history of Crohn's disease who was recently discharged from the hospital for Crohn's exacerbation. Patient stated that his symptoms get better but every now and then he will have lower abdominal pain that go up from 6-8 out of 10 sometimes. Patient denied any nausea or vomiting no diarrhea. No fever. On exam patient does have diffuse abdominal tenderness , no rebound tenderness no guarding normal bowel sounds. Patient recently had a CT abdomen and pelvis last month. I will order plain abdominal x-ray series. Patient given Toradol IM for pain. For further evaluation.
--- NOTE | 2017-12-17 21:13 | XRay Report ---
FINAL REPORT EXAM: XR ABD SERIES W CXR 1V HISTORY: abdominal pain . Patient was admitted last month for small bowel obstruction. TECHNIQUE: PA view of the chest and supine and erect views of the abdomen PRIORS: None. FINDINGS: Chest: Lungs are clear. Trachea is midline. Cardiac and mediastinal silhouettes are unremarkable. Bony structures are intact. Abdomen: There are few loops of small bowel centrally which are mildly distended with air-fluid levels. Findings can be consistent with an early small-bowel obstruction versus ileus. No free air is identified. Soft tissues have no evidence for mass shadows or calcifications. The bony structures are intact. IMPRESSION: 1. No acute cardiopulmonary process seen. 2. A few loops of central small bowel are mildly distended with air-fluid levels. These findings may be consistent with a an early small-bowel obstruction versus ileus
[2017-12-17] MEDS ORDERED: NACL 0.9% 1000 ML 1,000 ML IV ONE (21:17)
[2017-12-17] MEDS ORDERED: MORPHINE IV ONE (21:25)
[2017-12-17] MEDS ORDERED: ZOFRAN IV ONE (21:25)
[2017-12-17] MEDS ORDERED: NACL ONE (23:24)
--- NOTE | 2017-12-18 00:22 | Cat Scan Report ---
FINAL REPORT PROCEDURE: CT ABDOMEN PELVIS W CON TECHNIQUE: Computerized axial tomography of the abdomen and pelvis was performed after the IV injection of iodinated nonionic contrast. HISTORY: ? small bowel obstruction COMPARISON: 11/20/2017 FINDINGS: Visualized lower thorax: No significant abnormality. Liver: Normal size and attenuation. Spleen: Normal size and attenuation. Gallbladder and biliary system: Normal. Pancreas: Normal. Adrenals: Normal. Kidneys: Normal. GI tract: The stomach is normal. The proximal small bowel has a normal caliber. There are multiple loops of dilated distal small bowel in the terminal ilium region extending to the cecum. There is some fecal debris in these regions. Air-fluid levels are noted. The findings are most consistent with partial small bowel obstruction. The loops of bowel are dilated up to 4.3 centimeters. This has not changed significantly since the patient's prior examination. With the history of Crohn's disease acute exacerbation of the disease process is suspected. The appendix is not visualized on this study. There is some nodularity in the region of the cecum. This has not changed since prior exam. This is most likely related to inflammatory change from the patient's Crohn's disease. Other underlying pathology cannot be entirely excluded on the basis of this study. The distal colon has a normal appearance.. Lymph nodes and mesentery: Normal. Vasculature: Normal. Bladder: Normal. Reproductive organs: Normal. Peritoneum: No free fluid. Musculoskeletal structures: No significant abnormality. Other: None. IMPRESSION: There remains evidence of moderate to high-grade partial small-bowel obstruction at the terminal ileum. This has not changed significantly since prior study. There is some nodular thickening of the terminal ileum and the region of the cecum, this is most likely exacerbation of the patient's Crohn's disease process. Other etiologies are not entirely excluded on the basis of this study.
[2017-12-18] MEDS ORDERED: MORPHINE IV ONE (01:04)
--- NOTE | 2017-12-18 01:05 | Emergency Department Report ---
ED Abdominal Pain HPI - General Chief Complaint: Abdominal Pain Stated Complaint: ABD PAIN Time Seen by Provider: 12/17/17 18:51 Source: patient Mode of arrival: Ambulatory Limitations: No Limitations - History of Present Illness Initial Comments: 47-year-old male past medical history Crohn's disease, smoker presents with abdominal pain worsening. Admitted to the hospital last month with Crohn's flare and partial small bowel obstruction. MD Complaint: abdominal pain Severity scale (0 -10): 3 - Related Data Home Medications Medication Instructions Recorded Confirmed Last Taken Lisinopril [Zestril TAB] 10 mg PO QDAY 11/20/17 11/20/17 Unknown Metformin HCl 1 tab PO DAILY 11/20/17 11/20/17 Unknown Zolpidem [Ambien] 10 mg PO QHS 11/20/17 11/20/17 Unknown Previous Rx's Medication Instructions Recorded Last Taken Type Oxycodone HCl/Acetaminophen 1 each PO Q6HR PRN #15 tablet 11/23/17 Unknown Rx [Percocet 7.5/325 mg] predniSONE [Deltasone] 60 mg PO QDAY #36 tablet 11/23/17 Unknown Rx Allergies Allergy/AdvReac Type Severity Reaction Status Date / Time No Known Allergies Allergy Unverified 11/20/17 10:31 ED Review of Systems ROS: Stated complaint: ABD PAIN Other details as noted in HPI Constitutional: denies: chills, fever Eyes: denies: eye pain, eye discharge, vision change ENT: denies: ear pain, throat pain Respiratory: denies: cough, shortness of breath, wheezing Cardiovascular: denies: chest pain, palpitations Endocrine: no symptoms reported Gastrointestinal: abdominal pain, nausea, diarrhea Genitourinary: denies: urgency, dysuria Musculoskeletal: denies: back pain, joint swelling, arthralgia Skin: denies: rash, lesions Neurological: denies: headache, weakness, paresthesias Psychiatric: denies: anxiety, depression Hematological/Lymphatic: denies: easy bleeding, easy bruising ED Past Medical Hx - Past Medical History Previous Medical History?: Yes Hx Hypertension: Yes Hx Diabetes: Yes Hx HIV: No Additional medical history: Crohn's Disease, Bowel obstruction - Surgical History Past Surgical History?: Yes Additional Surgical History: Abd surgery due to Crohn's - Social History Smoking Status: Current Every Day Smoker Substance Use Type: Alcohol, Marijuana, Prescribed - Medications Home Medications: Home Medications Medication Instructions Recorded Confirmed Last Taken Type Lisinopril [Zestril TAB] 10 mg PO QDAY 11/20/17 11/20/17 Unknown History Metformin HCl 1 tab PO DAILY 11/20/17 11/20/17 Unknown History Zolpidem [Ambien] 10 mg PO QHS 11/20/17 11/20/17 Unknown History Oxycodone HCl/Acetaminophen 1 each PO Q6HR PRN #15 tablet 11/23/17 Unknown Rx [Percocet 7.5/325 mg] predniSONE [Deltasone] 60 mg PO QDAY #36 tablet 11/23/17 Unknown Rx ED Physical Exam - General Limitations: No Limitations General appearance: alert, in no apparent distress - Head Head exam: Present: atraumatic, normocephalic - Eye Eye exam: Present: normal appearance, PERRL, EOMI - ENT ENT exam: Present: mucous membranes moist - Neck Neck exam: Present: normal inspection - Respiratory Respiratory exam: Present: normal lung sounds bilaterally. Absent: respiratory distress - Cardiovascular Cardiovascular Exam: Present: regular rate, normal rhythm. Absent: systolic murmur, diastolic murmur, rubs, gallop - GI/Abdominal GI/Abdominal exam: Present: tenderness (right sided abdominal pain on palpation) , normal bowel sounds - Rectal Rectal exam: Present: deferred - Extremities Exam Extremities exam: Present: normal inspection - Back Exam Back exam: Present: normal inspection - Neurological Exam Neurological exam: Present: alert, oriented X3 - Psychiatric Psychiatric exam: Present: normal affect, normal mood - Skin Skin exam: Present: warm, dry, intact, normal color. Absent: rash ED Course Vital Signs 12/17/17 16:42 Temperature 97.3 F L Pulse Rate 111 H Respiratory 16 Rate Blood Pressure 124/92 O2 Sat by Pulse 99 Oximetry ED Medical Decision Making - Lab Data Result diagrams: 12/17/17 17:00 12/17/17 17:00 - Medical Decision Making A/P: Partial small bowel obstruction, Crohn's flare 1-I spoke to on-call surgeon Dr. Welch regarding the patient, will consult 2-I informed Dr. Maria of patient's current clinical scenario. I called Dr. Renee on-call hospitalist for admission 3-pulse of steroids as there is a component of Crohn's flare 4- nothing by mouth, analgesia and IV fluid. Patient is refusing nasogastric tube at this time Critical care attestation.: If time is entered above; I have spent that time in minutes in the direct care of this critically ill patient, excluding procedure time. ED Disposition Clinical Impression: Partial small bowel obstruction, Abdominal pain Acute Crohn's disease Qualifiers: Digestive disease complication type: with intestinal obstruction Qualified Code (s): K50.912 - Crohn's disease, unspecified, with intestinal obstruction Disposition: OP ADMIT IP TO THIS HOSP Is pt being admited?: Yes Does the pt Need Aspirin: No Condition: Stable Referrals: FAUSTINO SAENZ MD [Primary Care Provider] - 3-5 Days
[2017-12-18] MEDS ORDERED: NACL 0.9% 1000 ML 1,000 ML IV ONE (01:10)
--- NOTE | 2017-12-18 02:18 | History and Physical Report ---
History of Present Illness Date of examination: 12/18/17 History of present illness: 47-year-old man with a history of Crohn's, hypertension, diabetes comes emergency room with complaints of abdominal pain. Pain is in the right lower quadrant which has been constant for 2 weeks, sharp, intensity 8/10, radiating across the abdomen, cannot identify exacerbating or relieving factors. He denies nausea vomiting, fever or chills. Patient was admitted a week ago for partial small bowel obstruction. He has continued to be on prednisone 60 a day Review Of Systems: Constitutional: no weight loss Ears, eyes, nose, mouth and throat: no nasal congestion, no nasal discharge, no sinus pressure, blurry vision, diplopia Neck: No neck pain or rigidity. Cardiovascular: No chest pain, palpitations Respiratory: No shortness of breath, cough Gastrointestinal: No hematochezia Genitourinary : no dysuria, frequency , hematuria Musculoskeletal: no muscle ache Integumentary: no rash, no pruritis Neurological: no parathesias, focal weakness Endocrine: no cold or heat intolerance, no polyuria or polydipsia Hematologic/Lymphatic: no easy bruising, no easy bleeding, no gland swelling Allergic/Immunologic: no urticaria, no angioedema. Medications and Allergies Allergies Allergy/AdvReac Type Severity Reaction Status Date / Time No Known Allergies Allergy Unverified 11/20/17 10:31 Home Medications Medication Instructions Recorded Confirmed Last Taken Type Lisinopril [Zestril TAB] 10 mg PO QDAY 11/20/17 11/20/17 Unknown History Metformin HCl 1 tab PO DAILY 11/20/17 11/20/17 Unknown History Zolpidem [Ambien] 10 mg PO QHS 11/20/17 11/20/17 Unknown History Oxycodone HCl/Acetaminophen 1 each PO Q6HR PRN #15 tablet 11/23/17 Unknown Rx [Percocet 7.5/325 mg] predniSONE [Deltasone] 60 mg PO QDAY #36 tablet 11/23/17 Unknown Rx Active Meds: Active Medications Sodium Chloride (Nacl 0.9% 1000 Ml) 1,000 mls @ 250 mls/hr IV ONCE ONE Stop: 12/18/17 05:09 Last Admin: 12/18/17 01:30 Dose: 250 mls/hr Exam - Physical Exam Narrative exam: Gen. appearance: Patient lying in bed in no acute distress HEENT: Normocephalic/atraumatic, pupils equal round reactive to light, extra occular movement intact, no scleral icterus, no JVD or thyromegaly or nodule, neck is supple, mucous membrane moist, no erythema or exudate Heart: S1-S2, regular rate and rhythm Lungs: Clear to auscultation bilateral breathing comfortable Abdomen: Decreased bowel sounds, tender right lower quadrant, nondistended, no organomegaly Extremities: No edema, cyanosis, clubbing Neuro:: Oriented 3 , cranial nerves II-12 intact, speech, motor intact Skin: No rash, nodules, warm dry - Constitutional Vitals: Temp Pulse Resp BP Pulse Ox 97.3 F L 111 H 16 124/92 99 12/17/17 16:42 12/17/17 16:42 12/17/17 16:42 12/17/17 16:42 12/17/17 16:42 Results - Labs CBC & Chem 7: 12/17/17 17:00 12/17/17 17:00 Labs: Abnormal lab results 12/17/17 12/17/17 Range/Units 17:00 17:00 RDW 17.6 H (13.2-15.2) % Lymph % (Auto) 5.6 L (13.4-35.0) % [place] % (Auto) 13.0 H (0.0-7.3) % Lymph # 0.4 L (1.2-5.4) K/mm3 [place] # 1.0 H (0.0-0.8) K/mm3 Seg Neutrophils % 81.2 H (40.0-70.0) % Sodium 134 L (137-145) mmol/L Chloride 92.7 L (98-107) mmol/L Creatinine 0.7 L (0.8-1.5) mg/dL Glucose 253 H (75-100) mg/dL Albumin 3.7 L (3.9-5) g/dL - Imaging and Cardiology CT scan - abdomen: report reviewed CT scan - pelvis: report reviewed Assessment and Plan Assessment Partial small bowel obstruction Crohn's exacerbation Hypertension Diabetes 2 Plan Admit to medicine Place on bowel rest, refuse NG tube Start high-dose steroids, IV fluid, IV Levaquin consult surgery, GI Check fingersticks and initiate insulin sliding scale DVT prophylaxis
[2017-12-18] MEDS ORDERED: ZOFRAN IV PRN (05:59)
[2017-12-18] MEDS: MORPHINE IV PRN ×4 (06:07→21:40)
[2017-12-18] MEDS ORDERED: D50W (25GM) Syringe IV PRN (06:11)
[2017-12-18] MEDS: NACL 0.9% 1000 ML 1,000 ML IV SCH ×2 (06:35→22:41)
[2017-12-18] MEDS: NOVOLOG SUB-Q SCH ×4 (07:57→22:33)
[2017-12-18] MEDS: LOVENOX SUB-Q SCH (10:08)
--- NOTE | 2017-12-18 10:49 | Gastroenterology Consultation ---
History of Present Illness - Reason for Consult Consult date: 12/18/17 crohn's flare with SBO Requesting physician: ERROL DE LA TORRE - History of Present Illness Patient is a 47 y/o male with PMH of DM, HTN, and Crohn's disease who presented to ED with c/o RLQ abd pain. Abd CT this admission showed partial SBO at terminal ileum that is unchanged from prior CT last month while hospitalized due to exacerbation of his Crohn's disease with a partial small bowel obstruction, which improved with conservative management and steroids. 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 He has been on Remicade in the past but was unable to afford the cost of biologic therapy and stopped following up. Since that time he has been managed with prednisone with his disease poorly controlled. He was last seen in our clinic by Dr. Mix on 12/05/17 following his recent hospital discharge and was taking 40mg of prednisone daily while restaging for biologic therapy is in process with a colonoscopy and SBFT pending. This morning pt was resting in bed w/o acute distress. He admits to continued RLQ pain described as a constant dull ache with occasional intermittent sharp pains that radiates across his lower abdomen. Pain has been present for approximately 4 months now and has been progressive due to crohn's exacerbation. Last BM yesterday. Denies wt loss, fever, N/V, rectal bleeding or diarrhea. Abdomen upon exam is TTP in RLQ but soft, non-distended, and with +BS. Past History Past Medical History: diabetes, hypertension, other (Crohn's disease) Past Surgical History: bowel surgery Social history: smoking Family history: other (lung and skin cancer) Medications and Allergies Allergies Allergy/AdvReac Type Severity Reaction Status Date / Time No Known Allergies Allergy Unverified 11/20/17 10:31 Home Medications Medication Instructions Recorded Confirmed Last Taken Type Lisinopril [Zestril TAB] 10 mg PO QDAY 11/20/17 11/20/17 Unknown History Metformin HCl 1 tab PO DAILY 11/20/17 11/20/17 Unknown History Zolpidem [Ambien] 10 mg PO QHS 11/20/17 11/20/17 Unknown History Oxycodone HCl/Acetaminophen 1 each PO Q6HR PRN #15 tablet 11/23/17 Unknown Rx [Percocet 7.5/325 mg] predniSONE [Deltasone] 60 mg PO QDAY #36 tablet 11/23/17 Unknown Rx Active Meds: Active Medications Dextrose (D50w (25gm) Syringe) 50 ml IV PRN PRN PRN Reason: Hypoglycemia Enoxaparin Sodium (Lovenox) 40 mg SUB-Q QDAY KELLY Levofloxacin/Dextrose (Levaquin 750mg/150ml) 750 mg in 150 mls @ 100 mls/hr IV Q24HR KELLY PRN Reason: Protocol Sodium Chloride (Nacl 0.9% 1000 Ml) 1,000 mls @ 100 mls/hr IV DIRECT KELLY Last Admin: 12/18/17 06:35 Dose: 100 mls/hr Insulin Aspart (Novolog) 0 units SUB-Q ACHS KELLY PRN Reason: Protocol Methylprednisolone Sodium Succinate (Solu-Medrol) 60 mg IV Q8H KELLY Morphine Sulfate (Morphine) 2 mg IV Q4H PRN PRN Reason: Pain, Moderate (4-6) Last Admin: 12/18/17 06:07 Dose: 2 mg Ondansetron HCl (Zofran) 4 mg IV Q8H PRN PRN Reason: N/V unrelieved by Reglan Review of Systems - Review of Systems All systems: negative Gastrointestinal: abdominal pain (RLQ) Exam - Constitutional Vital Signs: Temp Pulse Resp BP Pulse Ox 97.4 F L 89 20 115/79 98 12/18/17 09:33 12/18/17 09:33 12/18/17 09:33 12/18/17 09:33 12/18/17 09:33 General appearance: no acute distress - EENT Eyes: PERRL, EOM intact ENT: hearing intact - Respiratory Respiratory: bilateral: CTA - Cardiovascular Rhythm: regular Heart Sounds: Present: S1 & S2 - Gastrointestinal General gastrointestinal: Present: soft, tender (RLQ), non-distended, normal bowel sounds, other (midline and RLQ scar from previous surgery) - Integumentary Integumentary: Present: warm, dry - Neurologic Neurological: alert and oriented x3 - Labs CBC & Chem 7: 12/17/17 17:00 12/17/17 17:00 Lab Results: Laboratory Results - last 24 hr 12/17/17 12/17/17 12/17/17 17:00 17:00 Unknown WBC 7.6 RBC 4.93 Hgb 13.7 Hct 43.0 MCV 87 MCH 28 MCHC 32 RDW 17.6 H Plt Count 276 Lymph % (Auto) 5.6 L [place] % (Auto) 13.0 H Eos % (Auto) 0.1 Baso % (Auto) 0.1 Lymph # 0.4 L [place] # 1.0 H Eos # 0.0 Baso # 0.0 Seg Neutrophils % 81.2 H Seg Neutrophils # 6.2 Sodium 134 L Potassium 4.9 Chloride 92.7 L Carbon Dioxide 24 Anion Gap 22 BUN 17 Creatinine 0.7 L Estimated GFR > 60 BUN/Creatinine Ratio 24 Glucose 253 H Lactic Acid Calcium 9.6 Total Bilirubin < 0.20 AST 7 ALT 12 Alkaline Phosphatase 72 Total Protein 7.0 Albumin 3.7 L Albumin/Globulin Ratio 1.1 Lipase 20 Urine Color Yellow Urine Turbidity Clear Urine pH 5.0 Ur Specific [place] 1.027 Urine Protein <15 mg/dl Urine Glucose (UA) >=500 Urine Ketones Tr Urine Blood Neg Urine Nitrite Neg Urine Bilirubin Neg Urine Urobilinogen < 2.0 Ur Leukocyte Esterase Neg Urine WBC (Auto) < 1.0 Urine RBC (Auto) 1.0 Urine Mucus Few 12/18/17 01:22 WBC RBC Hgb Hct MCV MCH MCHC RDW Plt Count Lymph % (Auto) [place] % (Auto) Eos % (Auto) Baso % (Auto) Lymph # [place] # Eos # Baso # Seg Neutrophils % Seg Neutrophils # Sodium Potassium Chloride Carbon Dioxide Anion Gap BUN Creatinine Estimated GFR BUN/Creatinine Ratio Glucose Lactic Acid 1.60 Calcium Total Bilirubin AST ALT Alkaline Phosphatase Total Protein Albumin Albumin/Globulin Ratio Lipase Urine Color Urine Turbidity Urine pH Ur Specific Ransom Urine Protein Urine Glucose (UA) Urine Ketones Urine Blood Urine Nitrite Urine Bilirubin Urine Urobilinogen Ur Leukocyte Esterase Urine WBC (Auto) Urine RBC (Auto) Urine Mucus Assessment and Plan 1.exacerbation of Crohn's disease 2.partial small bowel obstruction -afebrile -WBC-WNL -etiology- progressive abdominal pain due to Crohn's exacerbation due to inadequate care for the past several years 2/2 non-compliance now with partial bowel obstruction -restaging work up pending as an outpatient for biologic therapy with colonoscopy and SBFT ordered per Dr. Mix on 12/05/17 -surgery consult- pending -continue IV steroids and empiric antibiotics -continue supportive care -will follow
[2017-12-18] MEDS: LEVAQUIN 750MG/150ML 750 MG/150 ML BAG IV SCH (11:07)
--- NOTE | 2017-12-18 11:16 | Consultation ---
History of Present Illness Consult date: 12/18/17 Reason for consult: abdominal pain Requesting physician: NIA PORTER Chief complaint: abdominal pain - History of present illness History of present illness: 47yo M with h/o Crohn's disease presents with 1.5wk h/o abdominal pain after recently being admitted for partial SBO and Crohn's flare up. Pt is known to Dr. Mix and was supposed to be started on Humira in addition to getting a c- scope. Unfortunately, he got sick again began that could be done. Denies any F/C /n/V. Pain is main issue. Has BM yesterday but it was firm. Normally they are loose. Past History Past Medical History: diabetes, other (Crohn's) Past Surgical History: bowel surgery (pyloric surgery? and bowel fistula surgery ) Social history: smoking (1/2ppd), alcohol abuse (12pk/week), other (marijuana). denies: prescription drug abuse, IV drug use Family history: no significant family history Medications and Allergies Allergies Allergy/AdvReac Type Severity Reaction Status Date / Time No Known Allergies Allergy Unverified 11/20/17 10:31 Home Medications Medication Instructions Recorded Confirmed Last Taken Type Lisinopril [Zestril TAB] 10 mg PO QDAY 11/20/17 11/20/17 Unknown History Metformin HCl 1 tab PO DAILY 11/20/17 11/20/17 Unknown History Zolpidem [Ambien] 10 mg PO QHS 11/20/17 11/20/17 Unknown History Oxycodone HCl/Acetaminophen 1 each PO Q6HR PRN #15 tablet 11/23/17 Unknown Rx [Percocet 7.5/325 mg] predniSONE [Deltasone] 60 mg PO QDAY #36 tablet 11/23/17 Unknown Rx Active Meds: Active Medications Dextrose (D50w (25gm) Syringe) 50 ml IV PRN PRN PRN Reason: Hypoglycemia Enoxaparin Sodium (Lovenox) 40 mg SUB-Q QDAY [facility] Last Admin: 12/18/17 10:08 Dose: Not Given Levofloxacin/Dextrose (Levaquin 750mg/150ml) 750 mg in 150 mls @ 100 mls/hr IV Q24HR KELLY PRN Reason: Protocol Last Admin: 12/18/17 11:07 Dose: 100 mls/hr Sodium Chloride (Nacl 0.9% 1000 Ml) 1,000 mls @ 100 mls/hr IV DIRECT [facility] Last Admin: 12/18/17 06:35 Dose: 100 mls/hr Insulin Aspart (Novolog) 0 units SUB-Q ACHS KELLY PRN Reason: Protocol Methylprednisolone Sodium Succinate (Solu-Medrol) 60 mg IV Q8H KELLY Last Admin: 12/18/17 10:07 Dose: 60 mg Morphine Sulfate (Morphine) 2 mg IV Q4H PRN PRN Reason: Pain, Moderate (4-6) Last Admin: 12/18/17 10:50 Dose: 2 mg Ondansetron HCl (Zofran) 4 mg IV Q8H PRN PRN Reason: N/V unrelieved by Reglan Review of Systems - Constitutional no fever, no chills, no sweats, no night sweats, no weakness - Cardiovascular no chest pain - Respiratory no cough, no cough with sputum, no shortness of breath - Gastrointestinal abdominal pain, constipation, no nausea, no vomiting, no hematemesis, no coffee ground emesis, no BRBPR, no melena, no hematochezia, no dyspepsia/bloating - Hematologic/Lymphatic no easy bruising, no easy bleeding Exam Vital Signs Temp Pulse Resp BP Pulse Ox 97.3 F L 111 H 16 124/92 99 12/17/17 16:42 12/17/17 16:42 12/17/17 16:42 12/17/17 16:42 12/17/17 16:42 - General physical appearance Positive: well developed, well nourished, no distress, no pain - Eyes Positive: normal occular movement - Respiratory Positive: normal expansion, normal respiratory effort, clear to auscultation - Cardiovascular Rhythm: regular - Abdomen Abdomen: Present: soft, tender (only in RLQ), bowel sounds hypoactive, surgical scars (well healed in midline and right flank). Absent: distended, masses, guarding, rigid - Integumentary no rash - Neurologic Neurologic: alert and oriented to time, place and person, motor strength and sensation are grossly intact - Psychiatric Psychiatric: appropriate mood/affect, intact judgment & insight Results - Labs 12/17/17 17:00 12/17/17 17:00 Abnormal lab results 12/17/17 12/17/17 Range/Units 17:00 17:00 RDW 17.6 H (13.2-15.2) % Lymph % (Auto) 5.6 L (13.4-35.0) % [place] % (Auto) 13.0 H (0.0-7.3) % Lymph # 0.4 L (1.2-5.4) K/mm3 [place] # 1.0 H (0.0-0.8) K/mm3 Seg Neutrophils % 81.2 H (40.0-70.0) % Sodium 134 L (137-145) mmol/L Chloride 92.7 L (98-107) mmol/L Creatinine 0.7 L (0.8-1.5) mg/dL Glucose 253 H (75-100) mg/dL Albumin 3.7 L (3.9-5) g/dL Diabetes panel 12/17/17 Range/Units 17:00 Sodium 134 L (137-145) mmol/L Potassium 4.9 (3.6-5.0) mmol/L Chloride 92.7 L (98-107) mmol/L Carbon Dioxide 24 (22-30) mmol/L BUN 17 (9-20) mg/dL Creatinine 0.7 L (0.8-1.5) mg/dL Glucose 253 H (75-100) mg/dL Calcium 9.6 (8.4-10.2) mg/dL AST 7 (5-40) units/L ALT 12 (7-56) units/L Alkaline Phosphatase 72 (35-129) units/L Total Protein 7.0 (6.3-8.2) g/dL Albumin 3.7 L (3.9-5) g/dL Calcium panel 12/17/17 Range/Units 17:00 Calcium 9.6 (8.4-10.2) mg/dL Albumin 3.7 L (3.9-5) g/dL Pituitary panel 12/17/17 Range/Units 17:00 Sodium 134 L (137-145) mmol/L Potassium 4.9 (3.6-5.0) mmol/L Chloride 92.7 L (98-107) mmol/L Carbon Dioxide 24 (22-30) mmol/L BUN 17 (9-20) mg/dL Creatinine 0.7 L (0.8-1.5) mg/dL Glucose 253 H (75-100) mg/dL Calcium 9.6 (8.4-10.2) mg/dL Adrenal panel 12/17/17 Range/Units 17:00 Sodium 134 L (137-145) mmol/L Potassium 4.9 (3.6-5.0) mmol/L Chloride 92.7 L (98-107) mmol/L Carbon Dioxide 24 (22-30) mmol/L BUN 17 (9-20) mg/dL Creatinine 0.7 L (0.8-1.5) mg/dL Glucose 253 H (75-100) mg/dL Calcium 9.6 (8.4-10.2) mg/dL Total Bilirubin < 0.20 (0.1-1.2) mg/dL AST 7 (5-40) units/L ALT 12 (7-56) units/L Alkaline Phosphatase 72 (35-129) units/L Total Protein 7.0 (6.3-8.2) g/dL Albumin 3.7 L (3.9-5) g/dL - Imaging CT scan - abdomen: report reviewed, image reviewed (reviewed both current one and one from 11/20) Assessment and Plan - Patient Problems (1) Exacerbation of Crohn's disease Current Visit: No Status: Acute Qualifiers: Digestive disease complication type: with intestinal obstruction Qualified Code(s): K50.912 - Crohn's disease, unspecified, with intestinal obstruction Plan to address problem: Pt stable. CT appears to show more chronic changes in RLQ with increased feculent material in the terminal ileum. Patient is not obstructed nor does he have any emergency issues that require surgery at this time. Hopefully, he will respond appropriately to medical management. We will follow along. Thank you for this consult. Time=60min
[2017-12-18] MEDS: IMURAN PO SCH (21:37)
[2017-12-19] MEDS: MORPHINE IV PRN ×5 (03:11→22:24)
[2017-12-19 05:46] LABS: Basophils % (Auto) 0.1 % (0.0-1.8); Hematocrit 38.9 % (35.5-45.6); Hemoglobin 12.3 gm/dl (11.8-15.2); Lymphocytes # (Auto) 0.4 K/mm3 (1.2-5.4); Lymphocytes % (Auto) 9.1 % (13.4-35.0); Mean Corpuscular HGB Conc 32 % (32-34); Mean Corpuscular Hemoglobin 28 pg (28-32); Mean Corpuscular Volume 87 fl (84-94); Monocytes # (Auto) 0.3 K/mm3 (0.0-0.8); Monocytes % (Auto) 6.7 % (0.0-7.3); Platelet Count 191 K/mm3 (140-440); Red Blood Count 4.46 M/mm3 (3.65-5.03); Red Cell Distribution Width 17.2 % (13.2-15.2)
[2017-12-19 06:11] LABS: Alanine Aminotransferase 9 units/L (7-56); Albumin 3.3 g/dL (3.9-5); BUN/Creatinine Ratio 20; Blood Urea Nitrogen 12 mg/dL (9-20); Calcium 8.7 mg/dL (8.4-10.2); Hemolysis Index 8
[2017-12-19 06:14] LABS: Bilirubin,Direct < 0.2 mg/dL (0-0.2)
[2017-12-19] MEDS: NACL 0.9% 1000 ML 1,000 ML IV SCH (08:51)
[2017-12-19] MEDS: NOVOLOG SUB-Q SCH ×4 (08:53→23:26)
[2017-12-19] MEDS: LOVENOX SUB-Q SCH ×2 (10:15→10:19)
[2017-12-19] MEDS: LEVAQUIN 750MG/150ML 750 MG/150 ML BAG IV SCH (10:15)
[2017-12-19] MEDS: IMURAN PO SCH (10:15)
--- NOTE | 2017-12-19 10:35 | Gastroenterology Progress Note ---
Assessment and Plan 1.exacerbation of Crohn's disease 2.partial small bowel obstruction -afebrile -WBC-WNL -etiology- progressive abdominal pain due to Crohn's exacerbation due to inadequate care for the past several years 2/2 non-compliance now with partial bowel obstruction -restaging work up pending as an outpatient for biologic therapy with colonoscopy and SBFT ordered per Dr. Mix on 12/05/17 -surgery following- no recommendations for a surgical intervention at this time -continue IV steroids, empiric antibiotics, and Imuran -tolerating clear liquids- will advance diet to full liquids -continue supportive care -will follow Subjective Date of service: 12/19/17 Principal diagnosis: Crohn's disease, partial SBO Interval history: Patient resting in bed w/o acute distress. Reports continued RLQ abd pain w/o change in intensity nor improvement. No N/V. Tolerating clear liquids. Objective - Constitutional Vitals: Temp Pulse Resp BP Pulse Ox 97.7 F 67 18 129/76 95 12/19/17 07:01 12/19/17 07:01 12/19/17 07:01 12/19/17 07:01 12/19/17 08:49 General appearance: no acute distress, well-nourished - EENT Eyes: PERRL, EOM intact ENT: hearing intact - Respiratory Respiratory: bilateral: CTA - Cardiovascular Rhythm: regular Heart Sounds: Present: S1 & S2 - Gastrointestinal General gastrointestinal: Present: soft, tender (RLQ), non-distended, normal bowel sounds - Neurologic Neurological: alert and oriented x3 - Labs CBC & Chem 7: 12/19/17 05:30 12/19/17 05:30 Labs: Laboratory Results - last 24 hr 12/18/17 12/18/17 12/18/17 11:25 16:56 22:07 WBC RBC Hgb Hct MCV MCH MCHC RDW Plt Count Lymph % (Auto) [place] % (Auto) Eos % (Auto) Baso % (Auto) Lymph # [place] # Eos # Baso # Seg Neutrophils % Seg Neutrophils # Sodium Potassium Chloride Carbon Dioxide Anion Gap BUN Creatinine Estimated GFR BUN/Creatinine Ratio Glucose POC Glucose 206 H 124 H 175 H Calcium Total Bilirubin Direct Bilirubin Indirect Bilirubin AST ALT Alkaline Phosphatase Total Protein Albumin Albumin/Globulin Ratio 12/19/17 12/19/17 12/19/17 05:23 05:30 05:30 WBC 4.7 RBC 4.46 Hgb 12.3 Hct 38.9 MCV 87 MCH 28 MCHC 32 RDW 17.2 H Plt Count 191 Lymph % (Auto) 9.1 L [place] % (Auto) 6.7 Eos % (Auto) 0.0 Baso % (Auto) 0.1 Lymph # 0.4 L [place] # 0.3 Eos # 0.0 Baso # 0.0 Seg Neutrophils % 84.1 H Seg Neutrophils # 4.0 Sodium 138 Potassium 4.1 Chloride 98.8 Carbon Dioxide 25 Anion Gap 18 BUN 12 Creatinine 0.6 L Estimated GFR > 60 BUN/Creatinine Ratio 20 Glucose 186 H POC Glucose 187 H Calcium 8.7 Total Bilirubin 0.30 Direct Bilirubin < 0.2 Indirect Bilirubin 0.1 AST 6 ALT 9 Alkaline Phosphatase 47 Total Protein 6.0 L Albumin 3.3 L Albumin/Globulin Ratio 1.2
--- NOTE | 2017-12-19 10:50 | Progress Note ---
Assessment and Plan - Patient Problems (1) Exacerbation of Crohn's disease Current Visit: No Status: Acute Qualifiers: Digestive disease complication type: with intestinal obstruction Qualified Code(s): K50.912 - Crohn's disease, unspecified, with intestinal obstruction Plan to address problem: Pt stable. Discussed plan with Dr. Her. Will try advancing diet. If tolerated, will continue to manage medically. If not, then will consider surgical resection of affected area. Pt understands. We will follow along. Time=15min Subjective Date of service: 12/19/17 Patient Reports: Positive: no new complaints, tolerating liquids well (has always been able to tolerate PO intake. Main reason for coming in was abdominal pain). Negative: nausea, vomiting Objective Vital Signs - 12hr 12/19/17 12/19/17 07:01 08:49 Temperature 97.7 F Pulse Rate 67 Respiratory 18 Rate Blood Pressure 129/76 O2 Sat by Pulse 96 95 Oximetry - General physical appearance well developed, well nourished, no distress, no pain - Eyes normal occular movement - Respiratory normal expansion, normal respiratory effort - Abdomen soft, tender (only in RLQ - mild), bowel sounds normal, not distended, not rebound, not guarding, not rigid - Labs 12/19/17 05:30 12/19/17 05:30 Diabetes panel 12/19/17 Range/Units 05:30 Sodium 138 (137-145) mmol/L Potassium 4.1 (3.6-5.0) mmol/L Chloride 98.8 (98-107) mmol/L Carbon Dioxide 25 (22-30) mmol/L BUN 12 (9-20) mg/dL Creatinine 0.6 L (0.8-1.5) mg/dL Glucose 186 H (75-100) mg/dL Calcium 8.7 (8.4-10.2) mg/dL AST 6 (5-40) units/L ALT 9 (7-56) units/L Alkaline Phosphatase 47 (35-129) units/L Total Protein 6.0 L (6.3-8.2) g/dL Albumin 3.3 L (3.9-5) g/dL Calcium panel 12/19/17 Range/Units 05:30 Calcium 8.7 (8.4-10.2) mg/dL Albumin 3.3 L (3.9-5) g/dL Pituitary panel 12/19/17 Range/Units 05:30 Sodium 138 (137-145) mmol/L Potassium 4.1 (3.6-5.0) mmol/L Chloride 98.8 (98-107) mmol/L Carbon Dioxide 25 (22-30) mmol/L BUN 12 (9-20) mg/dL Creatinine 0.6 L (0.8-1.5) mg/dL Glucose 186 H (75-100) mg/dL Calcium 8.7 (8.4-10.2) mg/dL Adrenal panel 12/19/17 Range/Units 05:30 Sodium 138 (137-145) mmol/L Potassium 4.1 (3.6-5.0) mmol/L Chloride 98.8 (98-107) mmol/L Carbon Dioxide 25 (22-30) mmol/L BUN 12 (9-20) mg/dL Creatinine 0.6 L (0.8-1.5) mg/dL Glucose 186 H (75-100) mg/dL Calcium 8.7 (8.4-10.2) mg/dL Total Bilirubin 0.30 (0.1-1.2) mg/dL AST 6 (5-40) units/L ALT 9 (7-56) units/L Alkaline Phosphatase 47 (35-129) units/L Total Protein 6.0 L (6.3-8.2) g/dL Albumin 3.3 L (3.9-5) g/dL
--- NOTE | 2017-12-19 15:19 | Progress Note ---
<ANTON HAYNES - Last Filed: 12/19/17 15:07> Assessment and Plan Assessment and plan: 47-year-old man with a history of Crohn's, hypertension, diabetes comes emergency room with complaints of abdominal pain. Pain is in the right lower quadrant which has been constant for 2 weeks, sharp, intensity 8/10, radiating across the abdomen, cannot identify exacerbating or relieving factors. Partial small bowel obstruction Continue bowel rest, refuse NG tube Crohn's exacerbation Continue high-dose steroids, IV fluid, IV Levaquin, Imuran GI and general surgery following Hypertension Blood pressure is currently stable, Hydralazine PRN Diabetes 2 ADA diet, sliding scale insulin, Accu-Cheks ACHS, order A1c Hypothermia Present on admission Mild protein malnutrition Consult a unix manager once patient starts to eat again DVT prophylaxis Lovenox History Interval history: Patient seen and examined. He continues to complain of abdominal pain which is 6 out of 10 at present. He denies nausea vomiting, chest pain and shortness of breath. Labs and nursing notes reviewed. Hospitalist Physical - Constitutional Vitals: Temp Pulse Resp BP Pulse Ox 97.7 F 67 18 129/76 95 12/19/17 07:01 12/19/17 07:01 12/19/17 07:01 12/19/17 07:01 12/19/17 08:49 General appearance: Present: no acute distress, well-nourished - EENT Eyes: Present: PERRL, EOM intact ENT: hearing intact, clear oral mucosa - Neck Neck: Present: supple, normal ROM - Respiratory Respiratory effort: normal Respiratory: bilateral: CTA - Cardiovascular Rhythm: regular Heart Sounds: Present: S1 & S2 - Extremities Extremities: no ischemia, No edema - Abdominal General gastrointestinal: soft, tender, non-distended Localized gastrointestinal: tender: RLQ - Integumentary Integumentary: Present: clear, warm, dry - Psychiatric Psychiatric: appropriate mood/affect, cooperative - Neurologic Neurologic: CNII-XII intact, moves all extremities - Allied Health Allied health notes reviewed: nursing Results - Labs CBC & Chem 7: 12/19/17 05:30 12/19/17 05:30 Labs: Laboratory Last Values WBC 4.7 K/mm3 (4.5-11.0) 12/19/17 05:30 RBC 4.46 M/mm3 (3.65-5.03) 12/19/17 05:30 Hgb 12.3 gm/dl (11.8-15.2) 12/19/17 05:30 Hct 38.9 % (35.5-45.6) 12/19/17 05:30 MCV 87 fl (84-94) 12/19/17 05:30 MCH 28 pg (28-32) 12/19/17 05:30 MCHC 32 % (32-34) 12/19/17 05:30 RDW 17.2 % (13.2-15.2) H 12/19/17 05:30 Plt Count 191 K/mm3 (140-440) 12/19/17 05:30 Lymph % (Auto) 9.1 % (13.4-35.0) L 12/19/17 05:30 [place] % (Auto) 6.7 % (0.0-7.3) 12/19/17 05:30 Eos % (Auto) 0.0 % (0.0-4.3) 12/19/17 05:30 Baso % (Auto) 0.1 % (0.0-1.8) 12/19/17 05:30 Lymph # 0.4 K/mm3 (1.2-5.4) L 12/19/17 05:30 [place] # 0.3 K/mm3 (0.0-0.8) 12/19/17 05:30 Eos # 0.0 K/mm3 (0.0-0.4) 12/19/17 05:30 Baso # 0.0 K/mm3 (0.0-0.1) 12/19/17 05:30 Seg Neutrophils % 84.1 % (40.0-70.0) H 12/19/17 05:30 Seg Neutrophils # 4.0 K/mm3 (1.8-7.7) 12/19/17 05:30 Sodium 138 mmol/L (137-145) 12/19/17 05:30 Potassium 4.1 mmol/L (3.6-5.0) 12/19/17 05:30 Chloride 98.8 mmol/L (98-107) 12/19/17 05:30 Carbon Dioxide 25 mmol/L (22-30) 12/19/17 05:30 Anion Gap 18 mmol/L 12/19/17 05:30 BUN 12 mg/dL (9-20) 12/19/17 05:30 Creatinine 0.6 mg/dL (0.8-1.5) L 12/19/17 05:30 Estimated GFR > 60 ml/min 12/19/17 05:30 BUN/Creatinine Ratio 20 % 12/19/17 05:30 Glucose 186 mg/dL (75-100) H 12/19/17 05:30 POC Glucose 184 (70-105) H 12/19/17 11:31 Lactic Acid 1.60 mmol/L (0.7-2.0) 12/18/17 01:22 Calcium 8.7 mg/dL (8.4-10.2) 12/19/17 05:30 Total Bilirubin 0.30 mg/dL (0.1-1.2) 12/19/17 05:30 Direct Bilirubin < 0.2 mg/dL (0-0.2) 12/19/17 05:30 Indirect Bilirubin 0.1 mg/dL 12/19/17 05:30 AST 6 units/L (5-40) 12/19/17 05:30 ALT 9 units/L (7-56) 12/19/17 05:30 Alkaline Phosphatase 47 units/L (35-129) 12/19/17 05:30 Total Protein 6.0 g/dL (6.3-8.2) L 12/19/17 05:30 Albumin 3.3 g/dL (3.9-5) L 12/19/17 05:30 Albumin/Globulin Ratio 1.2 % 12/19/17 05:30 Lipase 20 units/L (13-60) 12/17/17 17:00 Urine Color Yellow (Yellow) 12/17/17 Unknown Urine Turbidity Clear (Clear) 12/17/17 Unknown Urine pH 5.0 (5.0-7.0) 12/17/17 Unknown Ur Specific [place] 1.027 (1.003-1.030) 12/17/17 Unknown Urine Protein <15 mg/dl mg/dL (Negative) 12/17/17 Unknown Urine Glucose (UA) >=500 mg/dL (Negative) 12/17/17 Unknown Urine Ketones Tr mg/dL (Negative) 12/17/17 Unknown Urine Blood Neg (Negative) 12/17/17 Unknown Urine Nitrite Neg (Negative) 12/17/17 Unknown Urine Bilirubin Neg (Negative) 12/17/17 Unknown Urine Urobilinogen < 2.0 mg/dL (<2.0) 12/17/17 Unknown Ur Leukocyte Esterase Neg (Negative) 12/17/17 Unknown Urine WBC (Auto) < 1.0 /HPF (0.0-6.0) 12/17/17 Unknown Urine RBC (Auto) 1.0 /HPF (0.0-6.0) 12/17/17 Unknown Urine Mucus Few /HPF 12/17/17 Unknown <NIK WILKES - Last Filed: 12/19/17 16:46> Assessment and Plan Assessment and plan: I saw and evaluated the patient. I agree with the findings and the plan of care as documented in the physician election assistant's~note, with the following corrections and additions. Hospitalist Physical - Constitutional Vitals: Temp Pulse Resp BP Pulse Ox 97.7 F 74 16 140/88 97 12/19/17 15:36 12/19/17 15:47 12/19/17 15:47 12/19/17 15:47 12/19/17 15:47 Results - Labs CBC & Chem 7: 12/19/17 05:30 12/19/17 05:30 Labs: Laboratory Last Values WBC 4.7 K/mm3 (4.5-11.0) 12/19/17 05:30 RBC 4.46 M/mm3 (3.65-5.03) 12/19/17 05:30 Hgb 12.3 gm/dl (11.8-15.2) 12/19/17 05:30 Hct 38.9 % (35.5-45.6) 12/19/17 05:30 MCV 87 fl (84-94) 12/19/17 05:30 MCH 28 pg (28-32) 12/19/17 05:30 MCHC 32 % (32-34) 12/19/17 05:30 RDW 17.2 % (13.2-15.2) H 12/19/17 05:30 Plt Count 191 K/mm3 (140-440) 12/19/17 05:30 Lymph % (Auto) 9.1 % (13.4-35.0) L 12/19/17 05:30 [place] % (Auto) 6.7 % (0.0-7.3) 12/19/17 05:30 Eos % (Auto) 0.0 % (0.0-4.3) 12/19/17 05:30 Baso % (Auto) 0.1 % (0.0-1.8) 12/19/17 05:30 Lymph # 0.4 K/mm3 (1.2-5.4) L 12/19/17 05:30 [place] # 0.3 K/mm3 (0.0-0.8) 12/19/17 05:30 Eos # 0.0 K/mm3 (0.0-0.4) 12/19/17 05:30 Baso # 0.0 K/mm3 (0.0-0.1) 12/19/17 05:30 Seg Neutrophils % 84.1 % (40.0-70.0) H 12/19/17 05:30 Seg Neutrophils # 4.0 K/mm3 (1.8-7.7) 12/19/17 05:30 Sodium 138 mmol/L (137-145) 12/19/17 05:30 Potassium 4.1 mmol/L (3.6-5.0) 12/19/17 05:30 Chloride 98.8 mmol/L (98-107) 12/19/17 05:30 Carbon Dioxide 25 mmol/L (22-30) 12/19/17 05:30 Anion Gap 18 mmol/L 12/19/17 05:30 BUN 12 mg/dL (9-20) 12/19/17 05:30 Creatinine 0.6 mg/dL (0.8-1.5) L 12/19/17 05:30 Estimated GFR > 60 ml/min 12/19/17 05:30 BUN/Creatinine Ratio 20 % 12/19/17 05:30 Glucose 186 mg/dL (75-100) H 12/19/17 05:30 POC Glucose 182 (70-105) H 12/19/17 15:43 Lactic Acid 1.60 mmol/L (0.7-2.0) 12/18/17 01:22 Calcium 8.7 mg/dL (8.4-10.2) 12/19/17 05:30 Total Bilirubin 0.30 mg/dL (0.1-1.2) 12/19/17 05:30 Direct Bilirubin < 0.2 mg/dL (0-0.2) 12/19/17 05:30 Indirect Bilirubin 0.1 mg/dL 12/19/17 05:30 AST 6 units/L (5-40) 12/19/17 05:30 ALT 9 units/L (7-56) 12/19/17 05:30 Alkaline Phosphatase 47 units/L (35-129) 12/19/17 05:30 Total Protein 6.0 g/dL (6.3-8.2) L 12/19/17 05:30 Albumin 3.3 g/dL (3.9-5) L 12/19/17 05:30 Albumin/Globulin Ratio 1.2 % 12/19/17 05:30 Lipase 20 units/L (13-60) 12/17/17 17:00 Urine Color Yellow (Yellow) 12/17/17 Unknown Urine Turbidity Clear (Clear) 12/17/17 Unknown Urine pH 5.0 (5.0-7.0) 12/17/17 Unknown Ur Specific [place] 1.027 (1.003-1.030) 12/17/17 Unknown Urine Protein <15 mg/dl mg/dL (Negative) 12/17/17 Unknown Urine Glucose (UA) >=500 mg/dL (Negative) 12/17/17 Unknown Urine Ketones Tr mg/dL (Negative) 12/17/17 Unknown Urine Blood Neg (Negative) 12/17/17 Unknown Urine Nitrite Neg (Negative) 12/17/17 Unknown Urine Bilirubin Neg (Negative) 12/17/17 Unknown Urine Urobilinogen < 2.0 mg/dL (<2.0) 12/17/17 Unknown Ur Leukocyte Esterase Neg (Negative) 12/17/17 Unknown Urine WBC (Auto) < 1.0 /HPF (0.0-6.0) 12/17/17 Unknown Urine RBC (Auto) 1.0 /HPF (0.0-6.0) 12/17/17 Unknown Urine Mucus Few /HPF 12/17/17 Unknown
[2017-12-20] MEDS: MORPHINE IV PRN ×4 (02:48→15:29)
[2017-12-20] MEDS: NOVOLOG SUB-Q SCH ×4 (08:29→23:05)
[2017-12-20] MEDS: LOVENOX SUB-Q SCH (09:20)
[2017-12-20] MEDS: IMURAN PO SCH (09:20)
[2017-12-20] MEDS: LEVAQUIN 750MG/150ML 750 MG/150 ML BAG IV SCH (09:21)
--- NOTE | 2017-12-20 09:25 | Progress Note ---
<ANTON HAYNES - Last Filed: 12/20/17 15:01> Assessment and Plan Assessment and plan: 47-year-old man with a history of Crohn's, hypertension, diabetes comes emergency room with complaints of abdominal pain. Pain is in the right lower quadrant which has been constant for 2 weeks, sharp, intensity 8/10, radiating across the abdomen, cannot identify exacerbating or relieving factors. Partial small bowel obstruction Continue bowel rest, refuse NG tube Crohn's exacerbation Continue high-dose steroids, IV fluid, IV Levaquin, Imuran GI and general surgery following, no recommendations for surgery at this time Hypertension Blood pressure is currently stable, Hydralazine PRN Diabetes 2 ADA diet, sliding scale insulin, Accu-Cheks ACHS, A1c 6.6 Hypothermia Present on admission Mild protein malnutrition Brick Off Bearer following Nicotine dependence Patient counseled on cessation DVT prophylaxis Lovenox History Interval history: Patient seen and examined. He continues to complain of abdominal pain. He denies nausea vomiting, chest pain and shortness of breath. Labs and nursing notes reviewed. Hospitalist Physical - Constitutional Vitals: Temp Pulse Resp BP Pulse Ox 97.8 F 60 20 125/84 97 12/20/17 08:11 12/20/17 08:11 12/20/17 08:11 12/20/17 08:11 12/20/17 08:11 General appearance: Present: no acute distress, well-nourished - EENT Eyes: Present: PERRL, EOM intact ENT: hearing intact, clear oral mucosa - Neck Neck: Present: supple, normal ROM - Respiratory Respiratory effort: normal Respiratory: bilateral: CTA - Cardiovascular Rhythm: regular Heart Sounds: Present: S1 & S2 - Extremities Extremities: no ischemia, No edema - Abdominal General gastrointestinal: soft, non-tender, non-distended Localized gastrointestinal: tender: RLQ - Integumentary Integumentary: Present: clear, warm, dry - Psychiatric Psychiatric: appropriate mood/affect, cooperative - Neurologic Neurologic: CNII-XII intact, moves all extremities - Allied Health Allied health notes reviewed: nursing Results - Labs CBC & Chem 7: 12/19/17 05:30 12/19/17 05:30 Labs: Laboratory Last Values WBC 4.7 K/mm3 (4.5-11.0) 12/19/17 05:30 RBC 4.46 M/mm3 (3.65-5.03) 12/19/17 05:30 Hgb 12.3 gm/dl (11.8-15.2) 12/19/17 05:30 Hct 38.9 % (35.5-45.6) 12/19/17 05:30 MCV 87 fl (84-94) 12/19/17 05:30 MCH 28 pg (28-32) 12/19/17 05:30 MCHC 32 % (32-34) 12/19/17 05:30 RDW 17.2 % (13.2-15.2) H 12/19/17 05:30 Plt Count 191 K/mm3 (140-440) 12/19/17 05:30 Lymph % (Auto) 9.1 % (13.4-35.0) L 12/19/17 05:30 [place] % (Auto) 6.7 % (0.0-7.3) 12/19/17 05:30 Eos % (Auto) 0.0 % (0.0-4.3) 12/19/17 05:30 Baso % (Auto) 0.1 % (0.0-1.8) 12/19/17 05:30 Lymph # 0.4 K/mm3 (1.2-5.4) L 12/19/17 05:30 Benson # 0.3 K/mm3 (0.0-0.8) 12/19/17 05:30 Eos # 0.0 K/mm3 (0.0-0.4) 12/19/17 05:30 Baso # 0.0 K/mm3 (0.0-0.1) 12/19/17 05:30 Seg Neutrophils % 84.1 % (40.0-70.0) H 12/19/17 05:30 Seg Neutrophils # 4.0 K/mm3 (1.8-7.7) 12/19/17 05:30 Sodium 138 mmol/L (137-145) 12/19/17 05:30 Potassium 4.1 mmol/L (3.6-5.0) 12/19/17 05:30 Chloride 98.8 mmol/L (98-107) 12/19/17 05:30 Carbon Dioxide 25 mmol/L (22-30) 12/19/17 05:30 Anion Gap 18 mmol/L 12/19/17 05:30 BUN 12 mg/dL (9-20) 12/19/17 05:30 Creatinine 0.6 mg/dL (0.8-1.5) L 12/19/17 05:30 Estimated GFR > 60 ml/min 12/19/17 05:30 BUN/Creatinine Ratio 20 % 12/19/17 05:30 Glucose 186 mg/dL (75-100) H 12/19/17 05:30 POC Glucose 163 (70-105) H 12/20/17 06:39 Hemoglobin A1c 6.6 % (4-6) H 12/19/17 16:48 Lactic Acid 1.60 mmol/L (0.7-2.0) 12/18/17 01:22 Calcium 8.7 mg/dL (8.4-10.2) 12/19/17 05:30 Total Bilirubin 0.30 mg/dL (0.1-1.2) 12/19/17 05:30 Direct Bilirubin < 0.2 mg/dL (0-0.2) 12/19/17 05:30 Indirect Bilirubin 0.1 mg/dL 12/19/17 05:30 AST 6 units/L (5-40) 12/19/17 05:30 ALT 9 units/L (7-56) 12/19/17 05:30 Alkaline Phosphatase 47 units/L (35-129) 12/19/17 05:30 Total Protein 6.0 g/dL (6.3-8.2) L 12/19/17 05:30 Albumin 3.3 g/dL (3.9-5) L 12/19/17 05:30 Albumin/Globulin Ratio 1.2 % 12/19/17 05:30 Lipase 20 units/L (13-60) 12/17/17 17:00 Urine Color Yellow (Yellow) 12/17/17 Unknown Urine Turbidity Clear (Clear) 12/17/17 Unknown Urine pH 5.0 (5.0-7.0) 12/17/17 Unknown Ur Specific [place] 1.027 (1.003-1.030) 12/17/17 Unknown Urine Protein <15 mg/dl mg/dL (Negative) 12/17/17 Unknown Urine Glucose (UA) >=500 mg/dL (Negative) 12/17/17 Unknown Urine Ketones Tr mg/dL (Negative) 12/17/17 Unknown Urine Blood Neg (Negative) 12/17/17 Unknown Urine Nitrite Neg (Negative) 12/17/17 Unknown Urine Bilirubin Neg (Negative) 12/17/17 Unknown Urine Urobilinogen < 2.0 mg/dL (<2.0) 12/17/17 Unknown Ur Leukocyte Esterase Neg (Negative) 12/17/17 Unknown Urine WBC (Auto) < 1.0 /HPF (0.0-6.0) 12/17/17 Unknown Urine RBC (Auto) 1.0 /HPF (0.0-6.0) 12/17/17 Unknown Urine Mucus Few /HPF 12/17/17 Unknown <NIK WILKES - Last Filed: 12/21/17 08:12> Assessment and Plan Assessment and plan: I saw and evaluated the patient. I agree with the findings and the plan of care as documented in the PA's~note, with the following corrections and additions. Hospitalist Physical - Constitutional Vitals: Temp Pulse Resp BP Pulse Ox 97.7 F 64 16 134/91 98 12/20/17 20:09 12/20/17 20:09 12/20/17 22:00 12/20/17 20:09 12/20/17 20:09 Results - Labs CBC & Chem 7: 12/21/17 05:36 12/21/17 05:36 Labs: Laboratory Last Values WBC 8.2 K/mm3 (4.5-11.0) 12/21/17 05:36 RBC 4.26 M/mm3 (3.65-5.03) 12/21/17 05:36 Hgb 12.0 gm/dl (11.8-15.2) 12/21/17 05:36 Hct 38.2 % (35.5-45.6) 12/21/17 05:36 MCV 90 fl (84-94) 12/21/17 05:36 MCH 28 pg (28-32) 12/21/17 05:36 MCHC 31 % (32-34) L 12/21/17 05:36 RDW 16.6 % (13.2-15.2) H 12/21/17 05:36 Plt Count 157 K/mm3 (140-440) 12/21/17 05:36 Lymph % (Auto) 15.5 % (13.4-35.0) 12/21/17 05:36 Benson % (Auto) 11.9 % (0.0-7.3) H 12/21/17 05:36 Eos % (Auto) 0.2 % (0.0-4.3) 12/21/17 05:36 Baso % (Auto) 0.1 % (0.0-1.8) 12/21/17 05:36 Lymph # 1.3 K/mm3 (1.2-5.4) 12/21/17 05:36 Benson # 1.0 K/mm3 (0.0-0.8) H 12/21/17 05:36 Eos # 0.0 K/mm3 (0.0-0.4) 12/21/17 05:36 Baso # 0.0 K/mm3 (0.0-0.1) 12/21/17 05:36 Seg Neutrophils % 72.3 % (40.0-70.0) H 12/21/17 05:36 Seg Neutrophils # 5.9 K/mm3 (1.8-7.7) 12/21/17 05:36 Sodium 138 mmol/L (137-145) 12/21/17 05:36 Potassium 5.0 mmol/L (3.6-5.0) D 12/21/17 05:36 Chloride 97.9 mmol/L (98-107) L 12/21/17 05:36 Carbon Dioxide 22 mmol/L (22-30) 12/21/17 05:36 Anion Gap 23 mmol/L 12/21/17 05:36 BUN 16 mg/dL (9-20) 12/21/17 05:36 Creatinine 0.6 mg/dL (0.8-1.5) L 12/21/17 05:36 Estimated GFR > 60 ml/min 12/21/17 05:36 BUN/Creatinine Ratio 27 % 12/21/17 05:36 Glucose 84 mg/dL (75-100) 12/21/17 05:36 POC Glucose 73 (70-105) 12/21/17 07:01 Hemoglobin A1c 6.6 % (4-6) H 12/19/17 16:48 Lactic Acid 1.60 mmol/L (0.7-2.0) 12/18/17 01:22 Calcium 8.9 mg/dL (8.4-10.2) 12/21/17 05:36 Total Bilirubin 0.40 mg/dL (0.1-1.2) 12/21/17 05:36 Direct Bilirubin < 0.2 mg/dL (0-0.2) 12/19/17 05:30 Indirect Bilirubin 0.1 mg/dL 12/19/17 05:30 AST 23 units/L (5-40) 12/21/17 05:36 ALT 14 units/L (7-56) 12/21/17 05:36 Alkaline Phosphatase 44 units/L (35-129) 12/21/17 05:36 Total Protein 5.5 g/dL (6.3-8.2) L 12/21/17 05:36 Albumin 3.5 g/dL (3.9-5) L 12/21/17 05:36 Albumin/Globulin Ratio 1.8 % 12/21/17 05:36 Lipase 20 units/L (13-60) 12/17/17 17:00 Urine Color Yellow (Yellow) 12/17/17 Unknown Urine Turbidity Clear (Clear) 12/17/17 Unknown Urine pH 5.0 (5.0-7.0) 12/17/17 Unknown Ur Specific [place] 1.027 (1.003-1.030) 12/17/17 Unknown Urine Protein <15 mg/dl mg/dL (Negative) 12/17/17 Unknown Urine Glucose (UA) >=500 mg/dL (Negative) 12/17/17 Unknown Urine Ketones Tr mg/dL (Negative) 12/17/17 Unknown Urine Blood Neg (Negative) 12/17/17 Unknown Urine Nitrite Neg (Negative) 12/17/17 Unknown Urine Bilirubin Neg (Negative) 12/17/17 Unknown Urine Urobilinogen < 2.0 mg/dL (<2.0) 12/17/17 Unknown Ur Leukocyte Esterase Neg (Negative) 12/17/17 Unknown Urine WBC (Auto) < 1.0 /HPF (0.0-6.0) 12/17/17 Unknown Urine RBC (Auto) 1.0 /HPF (0.0-6.0) 12/17/17 Unknown Urine Mucus Few /HPF 12/17/17 Unknown
[2017-12-20] MEDS ORDERED: TYLENOL PO PRN (15:33)
--- NOTE | 2017-12-20 17:17 | Gastroenterology Progress Note ---
Assessment and Plan - Patient Problems (1) Acute Crohn's disease Current Visit: Yes Status: Acute Qualifiers: Digestive disease complication type: with intestinal obstruction Qualified Code(s): K50.912 - Crohn's disease, unspecified, with intestinal obstruction Plan to address problem: - Multiyear disease, exacerbated by noncompliance and cigarettes. - OK to d/c home tomorrow on prednisone 40mg/day and imuran 50mg/day. - Will d/c abx for now. - Mechanical soft/low residue diet. - Patient to f/u with our office to re-initiate Remicade (insurance active 01/03). - Strongly encouraged d/c tobacco and MVI daily therapy. (2) Partial small bowel obstruction Current Visit: Yes Status: Acute Subjective Date of service: 12/20/17 Principal diagnosis: Crohn's disease, partial SBO Interval history: The patient says his pain is improved, and he continues to have 1-3BM/day. He has no nausea/vomiting/fevers/chills. Objective - Constitutional Vitals: Temp Pulse Resp BP Pulse Ox 98.1 F 66 18 142/91 99 12/20/17 15:35 12/20/17 15:35 12/20/17 15:35 12/20/17 15:35 12/20/17 15:35 General appearance: no acute distress - Respiratory Respiratory effort: normal Respiratory: bilateral: CTA - Cardiovascular Rhythm: regular Heart Sounds: Present: S1 & S2 - Gastrointestinal General gastrointestinal: Present: soft, tender (Mild and improved ), non- distended - Labs CBC & Chem 7: 12/19/17 05:30 12/19/17 05:30 Labs: Laboratory Results - last 24 hr 12/19/17 12/19/17 12/20/17 16:48 21:56 06:39 POC Glucose 171 H 163 H Hemoglobin A1c 6.6 H 12/20/17 12/20/17 11:45 16:50 POC Glucose 226 H 121 H Hemoglobin A1c
[2017-12-20] MEDS: PERCOCET 5/325 PO PRN (22:08)
[2017-12-21] MEDS: PERCOCET 5/325 PO PRN ×2 (04:06→10:29)
[2017-12-21 06:02] LABS: Albumin 3.5 g/dL (3.9-5); BUN/Creatinine Ratio 27; Blood Urea Nitrogen 16 mg/dL (9-20); Calcium 8.9 mg/dL (8.4-10.2); Hemolysis Index 191
[2017-12-21 06:06] LABS: Alanine Aminotransferase 14 units/L (7-56)
[2017-12-21 06:09] LABS: Hematocrit 38.2 % (35.5-45.6); Mean Corpuscular HGB Conc 31 % (32-34); Mean Corpuscular Hemoglobin 28 pg (28-32); Mean Corpuscular Volume 90 fl (84-94); Platelet Count 157 K/mm3 (140-440); Red Blood Count 4.26 M/mm3 (3.65-5.03); Red Cell Distribution Width 16.6 % (13.2-15.2)
[2017-12-21 06:13] LABS: Basophils % (Auto) 0.1 % (0.0-1.8); Eosinophils % (Auto) 0.2 % (0.0-4.3); Lymphocytes % (Auto) 15.5 % (13.4-35.0); Monocytes % (Auto) 11.9 % (0.0-7.3)
[2017-12-21 06:14] LABS: Lymphocytes # (Auto) 1.3 K/mm3 (1.2-5.4)
[2017-12-21] MEDS: MORPHINE IV PRN (08:18)
[2017-12-21] MEDS: NOVOLOG SUB-Q SCH (08:23)
[2017-12-21 08:29] VITALS: BP 122/87
[2017-12-21] MEDS: IMURAN PO SCH (09:36)
[2017-12-21] MEDS: LOVENOX SUB-Q SCH (09:36)
--- NOTE | 2017-12-21 09:48 | Discharge Summary ---
<ANTON HAYNES - Last Filed: 12/21/17 15:08> Providers - Providers Date of Admission: 12/18/17 02:17 Date of discharge: 12/21/17 Attending physician: NIK WILKES MD 12/18/17 02:51 Consult to Physician [CONS] Urgent Consulting Provider: FELICITAS BERRIOS Reason For Exam: SBO Place consult to:: Dr Berrios Notified:: Via his number Phone number called:: his number Was contact made?: Yes If yes, spoke with:: Dr. Berrios Time called:: 00:28 Comment:: Practioner Deep spoke with Dr. Berrios Consult to Physician [CONS] Urgent Consulting Provider: STORM MIX Reason For Exam: chrons flare with sbo Place consult to:: Dr. Mix Notified:: Sec please call 12/19/17 15:15 Consult to Dietitian/Nutrition [CONS] Routine Physician Instructions: Reason For Exam: Reason for Consult: Malnutrition Primary care physician: FAUSTINO SAENZ Hospitalization Condition: Stable Hospital course: 47-year-old male past medical history Crohn's disease, smoker presents with abdominal pain worsening. Admitted to the hospital last month with Crohn's flare and partial small bowel obstruction. -Chest and abdominal x-ray showed No acute cardiopulmonary process seen; A few loops of central small bowel are mildly distended with air-fluid levels. These findings may be consistent with a an early small-bowel obstruction versus ileus -CT abdomen and pelvis showed moderate to high-grade partial small-bowel obstruction at the terminal ileum. This has not changed significantly since prior study. There is some nodular thickening of the terminal ileum and the region of the cecum, this is most likely exacerbation of the patient's Crohn's disease process. Other etiologies are not entirely excluded on the basis of this study. -Patient was treated with high-dose steroids, IV fluid, IV Levaquin and Imuran for exacerbation of Crohn's disease. He was placed on bowel rest and his diet slowly advanced in order to treat the partial small bowel obstruction. -Patient resumed home medications and was discharged to self-care. He was counseled on medication compliance and cigarette smoking cessation. Advised to follow up with GI within 2 weeks. Discharge diagnoses Acute on chronic Crohn's disease Partial small bowel obstruction Hypertension Type 2 diabetes Hypothermia Mild protein malnutrition Nicotine dependence DVT prophylaxis Disposition: TO HOME OR SELFCARE Time spent for discharge: 31 minutes Core Measure Documentation - Palliative Care Palliative Care/ Comfort Measures: Not Applicable - Core Measures Any of the following diagnoses?: none Exam - Constitutional Vitals: Temp Pulse Resp BP Pulse Ox 97.7 F 74 18 122/87 95 12/21/17 07:59 12/21/17 07:59 12/21/17 08:18 12/21/17 07:59 12/21/17 07:59 General appearance: Present: no acute distress, well-nourished - EENT Eyes: Present: PERRL ENT: hearing intact, clear oral mucosa - Neck Neck: Present: supple, normal ROM - Respiratory Respiratory effort: normal Respiratory: bilateral: CTA - Cardiovascular Heart Sounds: Present: S1 & S2. Absent: rub, click - Extremities Extremities: pulses symmetrical, No edema Peripheral Pulses: within normal limits - Abdominal General gastrointestinal: Present: soft, tender, non-distended Localized gastrointestinal: tender: RLQ Male genitourinary: Present: deferred - Rectal Rectal Exam: deferred - Integumentary Integumentary: Present: clear, warm, dry - Musculoskeletal Musculoskeletal: gait normal, strength equal bilaterally - Psychiatric Psychiatric: appropriate mood/affect, intact judgment & insight - Neurologic Neurologic: CNII-XII intact, moves all extremities - Allied Health Allied health notes reviewed: nursing Plan Activity: advance as tolerated, fall precautions Diet: low fat, low cholesterol Special Instructions: smoking cessation Additional Instructions: Mechanical soft/low residue diet Follow up with: FAUSTINO SAENZ MD [Primary Care Provider] - 3-5 Days DELFINO RUIZ MD [Staff Physician] - 14 Days Prescriptions: azaTHIOprine [Imuran] 50 mg PO QDAY #30 tablet oxyCODONE /ACETAMINOPHEN [Percocet 5/325 mg] 1 tab PO Q6H PRN #14 tablet PRN Reason: Pain, Moderate (4-6) predniSONE [Deltasone] 40 mg PO QDAY #60 tablet <NIK WILKES - Last Filed: 12/22/17 17:24> Providers - Providers Date of Admission: 12/18/17 02:17 Attending physician: NIK WILKES MD 12/18/17 02:51 Consult to Physician [CONS] Urgent Consulting Provider: FELICITAS BERRIOS Reason For Exam: SBO Place consult to:: Dr Berrios Notified:: Via his number Phone number called:: his number Was contact made?: Yes If yes, spoke with:: Dr. Berrios Time called:: 00:28 Comment:: Practioner Deep spoke with Dr. Berrios Consult to Physician [CONS] Urgent Consulting Provider: STORM MIX Reason For Exam: chrons flare with sbo Place consult to:: Dr. Mix Notified:: Sec please call 12/19/17 15:15 Consult to Dietitian/Nutrition [CONS] Routine Physician Instructions: Reason For Exam: Reason for Consult: Malnutrition Primary care physician: FAUSTINO SAENZ Hospitalization Reason for admission: abdominal pain Hospital course: I saw and evaluated the patient. I agree with the findings and the plan of care as documented in the PA's~note, with the following corrections and additions. Exam - Constitutional Vitals: Temp Pulse Resp BP Pulse Ox 97.7 F 74 18 122/87 95 12/21/17 07:59 12/21/17 07:59 12/21/17 10:29 12/21/17 07:59 12/21/17 07:59
[2017-12-21] MEDS ORDERED: DELTASONE PO SCH (10:00)
== END 2017-12-21 12:39 | disposition home or self-care (01) | DRG 386 ==
LOC: ED 14:47 → 3A 12-18 02:17
PROVIDERS: ADMIT Internal Medicine; ATTEND Internal Medicine
DX: K50.912 Crohn's disease, unspecified, with intestinal obstruction (principal); E44.1 Mild protein-calorie malnutrition; Z79.899 Other long term (current) drug therapy; F17.210 Nicotine dependence, cigarettes, uncomplicated; E11.9 Type 2 diabetes mellitus without complications; I10 Essential (primary) hypertension; F12.10 Cannabis abuse, uncomplicated; Z71.6 Tobacco abuse counseling; Z80.1 Family history of malignant neoplasm of trachea, bronchus and lung; Z80.8 Family history of malignant neoplasm of other organs or systems; Z68.24 Body mass index [BMI] 24.0-24.9, adult
CPT/HCPCS: 36415; 74022; 74177; 80048; 80053; 80074; 81001; 82140; 82962; 83036; 83690; 85025; 87040; 96361; 96372; 96374; 96375; J1650; J1815; J1956; J2270; J2405; J2920; J2930; J7030; J7500; J7512; Q9967

== ENCOUNTER 2017-12-25 08:33 | Inpatient (IN) | payer SELFPAY ==
[2017-12-25 09:23] LABS: Basophils % (Auto) 0.1 % (0.0-1.8); Eosinophils % (Auto) 0.2 % (0.0-4.3); Hematocrit 40.6 % (35.5-45.6); Hemoglobin 13.3 gm/dl (11.8-15.2); Lymphocytes # (Auto) 0.7 K/mm3 (1.2-5.4); Lymphocytes % (Auto) 8.2 % (13.4-35.0); Mean Corpuscular HGB Conc 33 % (32-34); Mean Corpuscular Hemoglobin 28 pg (28-32); Mean Corpuscular Volume 86 fl (84-94); Monocytes # (Auto) 1.5 K/mm3 (0.0-0.8); Platelet Count 215 K/mm3 (140-440); Red Cell Distribution Width 16.9 % (13.2-15.2)
[2017-12-25 09:34] LABS: Alanine Aminotransferase 12 units/L (7-56); Albumin 3.7 g/dL (3.9-5); BUN/Creatinine Ratio 23; Blood Urea Nitrogen 16 mg/dL (9-20); Hemolysis Index 4
[2017-12-25 09:44] LABS: Bilirubin,Urine NEG (Negative); Blood,Urine NEG (Negative); Color,Urine Amber (Yellow); Mucus,Urine FEW /HPF
[2017-12-25] MEDS ORDERED: ZOFRAN IV ONE (12:57)
[2017-12-25] MEDS ORDERED: TORADOL IV ONE (12:57)
[2017-12-25] MEDS ORDERED: NACL 0.9% 1000 ML 1,000 ML IV ONE (13:02)
--- NOTE | 2017-12-25 13:02 | Emergency Department Report ---
HPI - General Chief Complaint: Abdominal Pain Time Seen by Provider: 12/25/17 12:48 - HPI HPI: Room 24 The patient is a 39-year-old male presenting with chief complaint of abdominal pain. The patient states he was discharged from the hospital for small bowel obstruction 4 days ago. The patient states the following evening his pain returned. Patient describes a constant aching pain with intermittent shooting pain in the right lower quadrant. The patient states the pain is exactly the same as his pain from his recent admission. Patient denies nausea/vomiting or diarrhea. Patient states his last bowel movement was 2 days ago when he normally has a bowel movement daily. Patient denies any history of fever. 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 Gastric surgery (patient uncertain what was done) - Family History Family history: no significant - Social History Smoking Status: Former Smoker (none 3 weeks) Substance Use Type: Alcohol (moderate), Marijuana - Medications Home Medications: Home Medications Medication Instructions Recorded Confirmed Last Taken Type Lisinopril [Zestril TAB] 10 mg PO QDAY 11/20/17 12/25/17 Unknown History Metformin HCl 1 tab PO DAILY 11/20/17 12/25/17 Unknown History Zolpidem [Ambien] 10 mg PO QHS 11/20/17 12/25/17 Unknown History azaTHIOprine [Imuran] 50 mg PO QDAY #30 tablet 12/21/17 12/25/17 Unknown Rx oxyCODONE /ACETAMINOPHEN [Percocet 1 tab PO Q6H PRN #14 tablet 12/21/17 Unknown Rx 5/325 mg] predniSONE [Deltasone] 40 mg PO QDAY #60 tablet 12/21/17 12/25/17 Unknown Rx ED Review of Systems ROS: Stated complaint: ABDOMINAL PAIN Other details as noted in HPI Constitutional: denies: fever Gastrointestinal: abdominal pain, constipation. denies: nausea, vomiting, diarrhea Physical Exam - Physical Exam Vital Signs: Vital Signs 12/25/17 08:51 Temperature 98 F Pulse Rate 116 H Respiratory 18 Rate Blood Pressure 126/87 O2 Sat by Pulse 99 Oximetry Physical Exam: GENERAL: The patient is well-developed well-nourished male sitting on stretcher appearing to be in mild discomfort. [] HEENT: Normocephalic. Atraumatic. Extraocular motions are intact. Patient has moist mucous membranes. NECK: Supple. Trachea midline CHEST/LUNGS: Clear to auscultation. There is no respiratory distress noted. HEART/CARDIOVASCULAR: Regular. There is no tachycardia. There is no gallop rub or murmur. ABDOMEN: Abdomen is soft, with tenderness to palpation in the right lower quadrant only. Patient has normal bowel sounds. There is no abdominal distention. SKIN: There is no rash. There is no edema. There is no diaphoresis. NEURO: The patient is awake, alert, and oriented. The patient is cooperative. The patient has normal speech MUSCULOSKELETAL: There is right CVA tenderness. There is no evidence of acute injury. ED Course Vital Signs 12/25/17 08:51 Temperature 98 F Pulse Rate 116 H Respiratory 18 Rate Blood Pressure 126/87 O2 Sat by Pulse 99 Oximetry - Consultations Consultation #1: 12/25/17 14:52 Dr. Berrios paged 12/25/17 15:[address] Berrios. Will consult ED Medical Decision Making - Lab Data Result diagrams: 12/25/17 09:00 12/25/17 09:00 Laboratory Tests 12/25/17 12/25/17 12/25/17 09:00 09:00 09:00 WBC 9.1 RBC 4.70 Hgb 13.3 Hct 40.6 MCV 86 MCH 28 MCHC 33 RDW 16.9 H Plt Count 215 Lymph % (Auto) 8.2 L [place] % (Auto) 16.0 H Eos % (Auto) 0.2 Baso % (Auto) 0.1 Lymph # 0.7 L [place] # 1.5 H Eos # 0.0 Baso # 0.0 Seg Neutrophils % 75.5 H Seg Neutrophils # 6.9 VBG pH 7.454 H Sodium 134 L Potassium 4.0 Chloride 98.6 Carbon Dioxide 24 Anion Gap 15 BUN 16 Creatinine 0.7 L Estimated GFR > 60 BUN/Creatinine Ratio 23 Glucose 165 H Calcium 9.0 Total Bilirubin 0.60 AST 8 ALT 12 Alkaline Phosphatase 60 Total Protein 6.7 D Albumin 3.7 L Albumin/Globulin Ratio 1.2 Urine Color Urine Turbidity Urine pH Ur Specific [place] Urine Protein Urine Glucose (UA) Urine Ketones Urine Blood Urine Nitrite Urine Bilirubin Urine Urobilinogen Ur Leukocyte Esterase Urine WBC (Auto) Urine RBC (Auto) Urine Mucus 12/25/17 09:08 WBC RBC Hgb Hct MCV MCH MCHC RDW Plt Count Lymph % (Auto) [place] % (Auto) Eos % (Auto) Baso % (Auto) Lymph # [place] # Eos # Baso # Seg Neutrophils % Seg Neutrophils # VBG pH Sodium Potassium Chloride Carbon Dioxide Anion Gap BUN Creatinine Estimated GFR BUN/Creatinine Ratio Glucose Calcium Total Bilirubin AST ALT Alkaline Phosphatase Total Protein Albumin Albumin/Globulin Ratio Urine Color [place] Urine Turbidity Clear Urine pH 5.0 Ur Specific [place] 1.030 Urine Protein 30 mg/dl Urine Glucose (UA) Neg Urine Ketones Tr Urine Blood Neg Urine Nitrite Neg Urine Bilirubin Neg Urine Urobilinogen 2.0 Ur Leukocyte Esterase Neg Urine WBC (Auto) 2.0 Urine RBC (Auto) 1.0 Urine Mucus Few - Radiology Data Radiology results: report reviewed (CT abdomen and pelvis), image reviewed (CT abdomen and pelvis) FINAL REPORT EXAM: CT ABDOMEN PELVIS W CON HISTORY: right lower quadrant abdominal pain TECHNIQUE: CT of the abdomen and pelvis was performed after the administration of intravenous contrast. Subsequently, CT of the abdomen and pelvis was performed in the delayed phase. Reconstructions were included in the coronal and sagittal planes. PRIORS: 12/17/2017. FINDINGS: Lower thorax: Mild linear and ground-glass opacities are seen in the right middle lobe, similar in appearance to the prior study likely representing atelectasis or scarring. The visualized portions of the heart are normal. Liver: The liver is normal in attenuation. No intrahepatic biliary duct dilation. No focal hepatic lesions. Gallbladder/ biliary system: No cholelithiasis. The common bile duct appears nondilated. Spleen: No splenic lesions are seen. Pancreas: No pancreatic lesions are seen. No pancreatic duct dilation. Kidneys: No renal masses, cysts or hydronephrosis. No ureteral filling defects. Adrenal glands: No adrenal masses. Vasculature: There are 2 right renal arteries. The abdominal aorta is nondilated. Lymph nodes: No enlarged lymph nodes are seen in the abdomen or pelvis. Bowel, mesentery, peritoneum: Postsurgical changes of the stomach are again seen. Again seen is a small-bowel obstruction with transition zone at the level of the terminal ileum. Fecalization of the contents of the distal small bowel are again seen. Wall thickening and surrounding inflammation of the cecum as well as the distal ileum is unchanged, likely related to the patient's known Crohn's disease. A small focal air/fluid collection along the anterior aspect of the cecum is again seen measuring 3.8 x 2.7 centimeters, previously 2.6 x 2.0 centimeters. This collection appears contiguous with the lumen of the cecum. No free fluid or free air. No pneumatosis. No portal venous gas. The appendix is not discretely identified. No colonic diverticulosis. Two focal small bowel small bowel intussusceptions are seen in the left upper quadrant. Urinary bladder: No filling defects are seen. Pelvis: Normal anatomy is noted. No masses. Abdominal wall: Small bilateral fat containing inguinal hernias are seen. Bones: Left L5 pars interarticularis defect is seen. No spondylolisthesis. Mild degenerative changes of the spine are seen. IMPRESSION: 1. Unchanged findings of small bowel obstruction at the level of the terminal ileum with inflammatory changes of the distal small bowel and cecum correlating with the patient's history of Crohn's disease. Increased size of the small air/fluid collection contiguous with the anterior aspect of the cecum which may represent an abscess. 2. Two small bowel/small bowel intussusceptions in the left upper quadrant. Transcribed By: MG Dictated By: APOORVA STONE MD Electronically Authenticated By: APOORVA STONE MD Signed Date/Time: 12/25/171041 DD/ 41 TD/TT: 12/25/171041 - Differential Diagnosis small bowel obstruction, appendicitis, renal colic Critical care attestation.: If time is entered above; I have spent that time in minutes in the direct care of this critically ill patient, excluding procedure time. ED Disposition Clinical Impression: Acute abdominal pain, Proteinuria, Partial small bowel obstruction, Intussusception Disposition: OP ADMIT IP TO THIS HOSP Is pt being admited?: Yes Does the pt Need Aspirin: No Condition: Fair Referrals: PRIMARY CARE, [Primary Care Provider] - 3-5 Days DULCE PATEL MD [Staff Physician] - 3-5 Days (Dr. Patel is a flake [employer]er [employer]. Please follow up with him for further evaluation of the protein in your urine) Time of Disposition: 15:01 (hospitalist notified (Dr Ruano))
[2017-12-25] MEDS ORDERED: NACL ONE (13:03)
--- NOTE | 2017-12-25 14:47 | Cat Scan Report ---
FINAL REPORT EXAM: CT ABDOMEN PELVIS W CON HISTORY: right lower quadrant abdominal pain TECHNIQUE: CT of the abdomen and pelvis was performed after the administration of intravenous contrast. Subsequently, CT of the abdomen and pelvis was performed in the delayed phase. Reconstructions were included in the coronal and sagittal planes. PRIORS: 12/17/2017. FINDINGS: Lower thorax: Mild linear and ground-glass opacities are seen in the right middle lobe, similar in appearance to the prior study likely representing atelectasis or scarring. The visualized portions of the heart are normal. Liver: The liver is normal in attenuation. No intrahepatic biliary duct dilation. No focal hepatic lesions. Gallbladder/ biliary system: No cholelithiasis. The common bile duct appears nondilated. Spleen: No splenic lesions are seen. Pancreas: No pancreatic lesions are seen. No pancreatic duct dilation. Kidneys: No renal masses, cysts or hydronephrosis. No ureteral filling defects. Adrenal glands: No adrenal masses. Vasculature: There are 2 right renal arteries. The abdominal aorta is nondilated. Lymph nodes: No enlarged lymph nodes are seen in the abdomen or pelvis. Bowel, mesentery, peritoneum: Postsurgical changes of the stomach are again seen. Again seen is a small-bowel obstruction with transition zone at the level of the terminal ileum. Fecalization of the contents of the distal small bowel are again seen. Wall thickening and surrounding inflammation of the cecum as well as the distal ileum is unchanged, likely related to the patient's known Crohn's disease. A small focal air/fluid collection along the anterior aspect of the cecum is again seen measuring 3.8 x 2.7 centimeters, previously 2.6 x 2.0 centimeters. This collection appears contiguous with the lumen of the cecum. No free fluid or free air. No pneumatosis. No portal venous gas. The appendix is not discretely identified. No colonic diverticulosis. Two focal small bowel small bowel intussusceptions are seen in the left upper quadrant. Urinary bladder: No filling defects are seen. Pelvis: Normal anatomy is noted. No masses. Abdominal wall: Small bilateral fat containing inguinal hernias are seen. Bones: Left L5 pars interarticularis defect is seen. No spondylolisthesis. Mild degenerative changes of the spine are seen. IMPRESSION: 1. Unchanged findings of small bowel obstruction at the level of the terminal ileum with inflammatory changes of the distal small bowel and cecum correlating with the patient's history of Crohn's disease. Increased size of the small air/fluid collection contiguous with the anterior aspect of the cecum which may represent an abscess. 2. Two small bowel/small bowel intussusceptions in the left upper quadrant.
[2017-12-25] MEDS ORDERED: SUBLIMAZE IV ONE (14:49)
[2017-12-25] MEDS ORDERED: MORPHINE IV ONE (15:28)
--- NOTE | 2017-12-25 17:53 | Consultation ---
History of Present Illness Consult date: 12/25/17 Chief complaint: abd pain, RLQ - History of present illness History of present illness: 47-year-old male with a past medical history of Crohn's disease diagnosed in 1993 presents to the emergency room with complaints of right lower quadrant abdominal pain, intermittent, that radiates across to the left side of the abdomen at times. Pain has been present for many months and patient frequently comes to the emergency room for pain control. Currently the pain is an 8/10 in severity. He has been tolerating a regular diet and ate eggs and soup this am. He has had no nausea or vomiting. He states eating does not exacerbate his pain. He states the only thing that makes the pain better is narcotic pain medication. He was recently discharged on 12/20/17 after he was treated for the same symptoms. CT scan on 12/17 showed SBO at terminal ileum but the patient was not clinically obstructed and was tolerating a diet and having multiple BMs. He was seen by surgery and GI on the last admission and discharged to home in stable condition on prednisone and imuran per GI. His last bowel movement was 2 days ago. He is still passing flatus. He denies fevers, chills, chest pain, shortness of breath, hematochezia, melena, diarrhea, constipation. Patient has not yet had a recent colonoscopy. Pt is to be started on Remicade when insurance activates on 01/03/18. He has had 2 abdominal operations both for complications of Crohn's disease. The patient does not remember the details however states that one was for a fistula that formed an abscess and another open abdominal surgery for a presumed duodenal obstruction. Past History Past Medical History: diabetes, other (Crohns disease) Past Surgical History: bowel surgery, Other (duodenal obstruction) Social history: smoking. denies: alcohol abuse Family history: no significant family history Medications and Allergies Allergies Allergy/AdvReac Type Severity Reaction Status Date / Time No Known Allergies Allergy Unverified 11/20/17 10:31 Home Medications Medication Instructions Recorded Confirmed Last Taken Type Lisinopril [Zestril TAB] 10 mg PO QDAY 11/20/17 12/25/17 Unknown History Metformin HCl 1 tab PO DAILY 11/20/17 12/25/17 Unknown History Zolpidem [Ambien] 10 mg PO QHS 11/20/17 12/25/17 Unknown History azaTHIOprine [Imuran] 50 mg PO QDAY #30 tablet 12/21/17 12/25/17 Unknown Rx oxyCODONE /ACETAMINOPHEN [Percocet 1 tab PO Q6H PRN #14 tablet 12/21/17 Unknown Rx 5/325 mg] predniSONE [Deltasone] 40 mg PO QDAY #60 tablet 12/21/17 12/25/17 Unknown Rx Review of Systems All systems: negative (10 pt ROS was performed and negative except for that listed in HPI) Exam Vital Signs Temp Pulse Resp BP Pulse Ox 98 F 116 H 18 126/87 99 12/25/17 08:51 12/25/17 08:51 12/25/17 08:51 12/25/17 08:51 12/25/17 08:51 Narrative exam: General: Awake, alert, oriented 3. No apparent distress ENT: No scleral icterus or conjunctival pallor CV: S1, S2 present. No murmurs, rubs, gallops Respiratory: Clear to auscultation bilaterally. No wheezes, rales, rhonchi Abdomen: Soft, nondistended, point tenderness in the right lower quadrant without rebound, rigidity, guarding. The rest of the abdomen is unremarkable. There are well-healed surgical scars Extremities: No clubbing, cyanosis, or edema Results - Labs 12/25/17 09:00 12/25/17 09:00 Abnormal lab results 12/25/17 12/25/17 12/25/17 Range/Units 09:00 09:00 09:00 RDW 16.9 H (13.2-15.2) % Lymph % (Auto) 8.2 L (13.4-35.0) % [place] % (Auto) 16.0 H (0.0-7.3) % Lymph # 0.7 L (1.2-5.4) K/mm3 [place] # 1.5 H (0.0-0.8) K/mm3 Seg Neutrophils % 75.5 H (40.0-70.0) % VBG pH 7.454 H (7.320-7.420) Sodium 134 L (137-145) mmol/L Creatinine 0.7 L (0.8-1.5) mg/dL Glucose 165 H (75-100) mg/dL Albumin 3.7 L (3.9-5) g/dL Diabetes panel 12/25/17 Range/Units 09:00 Sodium 134 L (137-145) mmol/L Potassium 4.0 (3.6-5.0) mmol/L Chloride 98.6 (98-107) mmol/L Carbon Dioxide 24 (22-30) mmol/L BUN 16 (9-20) mg/dL Creatinine 0.7 L (0.8-1.5) mg/dL Glucose 165 H (75-100) mg/dL Calcium 9.0 (8.4-10.2) mg/dL AST 8 (5-40) units/L ALT 12 (7-56) units/L Alkaline Phosphatase 60 (35-129) units/L Total Protein 6.7 D (6.3-8.2) g/dL Albumin 3.7 L (3.9-5) g/dL Calcium panel 12/25/17 Range/Units 09:00 Calcium 9.0 (8.4-10.2) mg/dL Albumin 3.7 L (3.9-5) g/dL Pituitary panel 12/25/17 Range/Units 09:00 Sodium 134 L (137-145) mmol/L Potassium 4.0 (3.6-5.0) mmol/L Chloride 98.6 (98-107) mmol/L Carbon Dioxide 24 (22-30) mmol/L BUN 16 (9-20) mg/dL Creatinine 0.7 L (0.8-1.5) mg/dL Glucose 165 H (75-100) mg/dL Calcium 9.0 (8.4-10.2) mg/dL Adrenal panel 12/25/17 Range/Units 09:00 Sodium 134 L (137-145) mmol/L Potassium 4.0 (3.6-5.0) mmol/L Chloride 98.6 (98-107) mmol/L Carbon Dioxide 24 (22-30) mmol/L BUN 16 (9-20) mg/dL Creatinine 0.7 L (0.8-1.5) mg/dL Glucose 165 H (75-100) mg/dL Calcium 9.0 (8.4-10.2) mg/dL Total Bilirubin 0.60 (0.1-1.2) mg/dL AST 8 (5-40) units/L ALT 12 (7-56) units/L Alkaline Phosphatase 60 (35-129) units/L Total Protein 6.7 D (6.3-8.2) g/dL Albumin 3.7 L (3.9-5) g/dL - Imaging CT scan - abdomen: report reviewed, image reviewed CT scan - pelvis: report reviewed, image reviewed (Comparison to CT from 1. Unchanged findings small bowel obstruction at the level of the terminal ileum with inflammatory changes of the distal small bowel and cecum correlating with the patient's history of Crohn's disease. 2. Two small bowel, small bowel intussusception in the left upper quadrant) Assessment and Plan 47-year-old male with 1. Crohn's disease exacerbation 2. Diabetes Plan: 1. continue imuran and prednisone 2. PO pain control - would avoid the use of narcotics. 3. CT personally reviewed - intussusception seen is likely related to peristalsis of the small intestine as there is no CT evidence of bowel obstruction at those locations and the patient does not have symptoms of pain in the LUQ or clinical signs of obstruction. Furthermore, the partial small bowel obstruction has not changed from prior CT scan and patient is having flatus/BMs. 4. may start on diet, low residual diet 4. no surgical intervention is warranted at this time. Patient should follow up with GI as outpatient to start on immunosuppressive therapy for Crohns. Thank you for this consultation, please call with any questions or concerns.
[2017-12-25] MEDS ORDERED: DILAUDID ONE (20:02)
[2017-12-25] MEDS ORDERED: DILAUDID IV ONE (20:04)
[2017-12-25] MEDS ORDERED: MILK OF MAGNESIA PO PRN (23:24)
[2017-12-25] MEDS ORDERED: TYLENOL PO PRN (23:24)
[2017-12-25] MEDS ORDERED: DULCOLAX PR PRN (23:24)
--- NOTE | 2017-12-25 23:27 | History and Physical Report ---
History of Present Illness Date of examination: 12/25/17 Date of admission: 12/25/17 Chief complaint: CC RLQ pain History of present illness: History of present illness: 47-year-old male with a past medical history of Crohn's disease on Imuran presents to the emergency room with complaints of right lower quadrant abdominal pain, intermittent, that radiates across to the left side of the abdomen at times. Pain has been present for many months and patient frequently comes to the emergency room for pain control. Currently the pain is an 8/10 in severity. He has been tolerating a regular diet and ate eggs and soup this am. He has had no nausea or vomiting. He states eating does not exacerbate his pain. He states the only thing that makes the pain better is narcotic pain medication. He was recently discharged on 12/20/17 after he was treated for the same symptoms. CT scan on 12/17 showed SBO at terminal ileum but the patient was not clinically obstructed and was tolerating a diet and having multiple BMs. He was seen by surgery and GI on the last admission and discharged to home in stable condition on prednisone and imuran per GI. His last bowel movement was 2 days ago. He is still passing flatus. He denies fevers, chills, chest pain, shortness of breath, hematochezia, melena, diarrhea, constipation. Patient has not yet had a recent colonoscopy. Pt is to be started on Remicade when insurance activates on 01/03/18. He has had 2 abdominal operations both for complications of Crohn's disease. The patient does not remember the details however states that one was for a fistula that formed an abscess and another open abdominal surgery for a presumed duodenal obstruction. Past History Past Medical History: diabetes, other (Crohns disease) Past Surgical History: bowel surgery, Other (duodenal obstruction) Social history: smoking. denies: alcohol abuse Family history: no significant family history Medications and Allergies Allergies Allergy/AdvReac Type Severity Reaction Status Date / Time No Known Allergies Allergy Unverified 11/20/17 10:31 Home Medications Medication Instructions Recorded Confirmed Last Taken Type Lisinopril [Zestril TAB] 10 mg PO QDAY 11/20/17 12/25/17 Unknown History Metformin HCl 1 tab PO DAILY 11/20/17 12/25/17 Unknown History Zolpidem [Ambien] 10 mg PO QHS 11/20/17 12/25/17 Unknown History azaTHIOprine [Imuran] 50 mg PO QDAY #30 tablet 12/21/17 12/25/17 Unknown Rx oxyCODONE /ACETAMINOPHEN [Percocet 1 tab PO Q6H PRN #14 tablet 12/21/17 Unknown Rx 5/325 mg] predniSONE [Deltasone] 40 mg PO QDAY #60 tablet 12/21/17 12/25/17 Unknown Rx Past History Past Medical History: diabetes, other (Crohns disease) Past Surgical History: bowel surgery, Other (duodenal obstruction) Social history: smoking. denies: alcohol abuse Family history: no significant family history Medications and Allergies Allergies Allergy/AdvReac Type Severity Reaction Status Date / Time No Known Allergies Allergy Unverified 11/20/17 10:31 Home Medications Medication Instructions Recorded Confirmed Last Taken Type Lisinopril [Zestril TAB] 10 mg PO QDAY 11/20/17 12/25/17 Unknown History Metformin HCl 1 tab PO DAILY 11/20/17 12/25/17 Unknown History Zolpidem [Ambien] 10 mg PO QHS 11/20/17 12/25/17 Unknown History azaTHIOprine [Imuran] 50 mg PO QDAY #30 tablet 12/21/17 12/25/17 Unknown Rx oxyCODONE /ACETAMINOPHEN [Percocet 1 tab PO Q6H PRN #14 tablet 12/21/17 Unknown Rx 5/325 mg] predniSONE [Deltasone] 40 mg PO QDAY #60 tablet 12/21/17 12/25/17 Unknown Rx Review of Systems All systems: negative Constitutional: no weight loss, no weight gain, no fever, no chills Ears, nose, mouth and throat: no sinus pain, no dysphagia, no hoarseness, no sore throat, no swelling in mouth, no swelling in throat Cardiovascular: no chest pain, no orthopnea, no palpitations, no rapid/ irregular heart beat Respiratory: no cough, no cough with sputum, no excessive sputum, no hemoptysis , no shortness of breath, no dyspnea on exertion Gastrointestinal: abdominal pain, nausea Genitourinary Male: no dysuria, no hematuria, no flank pain, no urinary frequency, no urinary hesitancy Rectal: no pain Musculoskeletal: no neck stiffness, no neck pain, no shooting arm pain, no arm numbness/tingling, no low back pain Integumentary: no rash, no pruritis, no redness, no sores Neurological: no seizures, no syncope Psychiatric: no anxiety, no memory loss, no change in sleep habits, no sleep disturbances, no insomnia Endocrine: no cold intolerance, no heat intolerance, no polyphagia, no excessive thirst, no polydipsia, no polyuria, no nocturia, no excessive sweating Hematologic/Lymphatic: no easy bruising, no easy bleeding Allergic/Immunologic: no urticaria, no allergic rhinitis, no wheezing Exam - Constitutional Vitals: Temp Pulse Resp BP Pulse Ox 98.2 F 84 16 126/74 100 12/25/17 20:36 12/25/17 21:52 12/25/17 21:52 12/25/17 21:52 12/25/17 21:52 General appearance: Present: no acute distress, well-nourished - EENT Eyes: Present: PERRL ENT: hearing intact, clear oral mucosa - Neck Neck: Present: supple, normal ROM - Respiratory Respiratory effort: normal Respiratory: bilateral: CTA - Cardiovascular Heart rate: 76 Rhythm: regular Heart Sounds: Present: S1 & S2. Absent: rub, click - Extremities Extremities: no ischemia, pulses intact, pulses symmetrical, No edema, Full ROM Peripheral Pulses: within normal limits - Abdominal General gastrointestinal: Present: soft, non-tender, non-distended, normal bowel sounds Localized gastrointestinal: tender: diffuse, guarding: RLQ, rebound: RLQ Male genitourinary: Present: normal - Rectal Rectal Exam: stool brown - Integumentary Integumentary: Present: clear, warm, dry - Musculoskeletal Musculoskeletal: gait normal, strength equal bilaterally - Psychiatric Psychiatric: appropriate mood/affect, intact judgment & insight - Neurologic Neurologic: CNII-XII intact, moves all extremities Results - Labs CBC & Chem 7: 12/26/17 04:40 12/26/17 04:40 Labs: Laboratory Last Values WBC 9.1 K/mm3 (4.5-11.0) 12/25/17 09:00 RBC 4.70 M/mm3 (3.65-5.03) 12/25/17 09:00 Hgb 13.3 gm/dl (11.8-15.2) 12/25/17 09:00 Hct 40.6 % (35.5-45.6) 12/25/17 09:00 MCV 86 fl (84-94) 12/25/17 09:00 MCH 28 pg (28-32) 12/25/17 09:00 MCHC 33 % (32-34) 12/25/17 09:00 RDW 16.9 % (13.2-15.2) H 12/25/17 09:00 Plt Count 215 K/mm3 (140-440) 12/25/17 09:00 Lymph % (Auto) 8.2 % (13.4-35.0) L 12/25/17 09:00 Stark % (Auto) 16.0 % (0.0-7.3) H 12/25/17 09:00 Eos % (Auto) 0.2 % (0.0-4.3) 12/25/17 09:00 Baso % (Auto) 0.1 % (0.0-1.8) 12/25/17 09:00 Lymph # 0.7 K/mm3 (1.2-5.4) L 12/25/17 09:00 Stark # 1.5 K/mm3 (0.0-0.8) H 12/25/17 09:00 Eos # 0.0 K/mm3 (0.0-0.4) 12/25/17 09:00 Baso # 0.0 K/mm3 (0.0-0.1) 12/25/17 09:00 Seg Neutrophils % 75.5 % (40.0-70.0) H 12/25/17 09:00 Seg Neutrophils # 6.9 K/mm3 (1.8-7.7) 12/25/17 09:00 VBG pH 7.454 (7.320-7.420) H 12/25/17 09:00 Sodium 134 mmol/L (137-145) L 12/25/17 09:00 Potassium 4.0 mmol/L (3.6-5.0) 12/25/17 09:00 Chloride 98.6 mmol/L (98-107) 12/25/17 09:00 Carbon Dioxide 24 mmol/L (22-30) 12/25/17 09:00 Anion Gap 15 mmol/L 12/25/17 09:00 BUN 16 mg/dL (9-20) 12/25/17 09:00 Creatinine 0.7 mg/dL (0.8-1.5) L 12/25/17 09:00 Estimated GFR > 60 ml/min 12/25/17 09:00 BUN/Creatinine Ratio 23 % 12/25/17 09:00 Glucose 165 mg/dL (75-100) H 12/25/17 09:00 Calcium 9.0 mg/dL (8.4-10.2) 12/25/17 09:00 Total Bilirubin 0.60 mg/dL (0.1-1.2) 12/25/17 09:00 AST 8 units/L (5-40) 12/25/17 09:00 ALT 12 units/L (7-56) 12/25/17 09:00 Alkaline Phosphatase 60 units/L (35-129) 12/25/17 09:00 Total Protein 6.7 g/dL (6.3-8.2) D 12/25/17 09:00 Albumin 3.7 g/dL (3.9-5) L 12/25/17 09:00 Albumin/Globulin Ratio 1.2 % 12/25/17 09:00 Urine Color Taylor (Yellow) 12/25/17 09:08 Urine Turbidity Clear (Clear) 12/25/17 09:08 Urine pH 5.0 (5.0-7.0) 12/25/17 09:08 Ur Specific [employer] 1.030 (1.003-1.030) 12/25/17 09:08 Urine Protein 30 mg/dl mg/dL (Negative) 12/25/17 09:08 Urine Glucose (UA) Neg mg/dL (Negative) 12/25/17 09:08 Urine Ketones Tr mg/dL (Negative) 12/25/17 09:08 Urine Blood Neg (Negative) 12/25/17 09:08 Urine Nitrite Neg (Negative) 12/25/17 09:08 Urine Bilirubin Neg (Negative) 12/25/17 09:08 Urine Urobilinogen 2.0 mg/dL (<2.0) 12/25/17 09:08 Ur Leukocyte Esterase Neg (Negative) 12/25/17 09:08 Urine WBC (Auto) 2.0 /HPF (0.0-6.0) 12/25/17 09:08 Urine RBC (Auto) 1.0 /HPF (0.0-6.0) 12/25/17 09:08 Urine Mucus Few /HPF 12/25/17 09:08 - Imaging and Cardiology CT scan - abdomen: report reviewed (SBO at terminal ileum and small intusussception at LUQ) Assessment and Plan Advance Directives: Yes (Full code) VTE prophylaxis?: Chemical Plan of care discussed with patient/family: Yes - Patient Problems (1) Partial small bowel obstruction Current Visit: Yes Status: Acute Plan to address problem: Conservative treatment. NG tube to suction if necessary Surgery consult appreciated (2) Exacerbation of Crohn's disease Current Visit: No Status: Acute Qualifiers: Digestive disease complication type: with intestinal obstruction Qualified Code(s): K50.912 - Crohn's disease, unspecified, with intestinal obstruction Plan to address problem: IV solumedrol if GI agrees (3) Intussusception Current Visit: Yes Status: Acute Plan to address problem: Mild should resolve spontaneously (4) Nicotine dependence Current Visit: No Status: Chronic Qualifiers: Nicotine product type: cigarettes Substance use status: in withdrawal Qualified Code(s): F17.213 - Nicotine dependence, cigarettes, with withdrawal Plan to address problem: Nicoderm patch (5) T2DM (type 2 diabetes mellitus) Current Visit: Yes Status: Chronic Qualifiers: Diabetes mellitus complication status: without complication Diabetes mellitus shelter insulin use: without shelter use Qualified Code(s): E11.9 - Type 2 diabetes mellitus without complications Plan to address problem: Coverage for now (6) HTN (hypertension) Current Visit: Yes Status: Chronic Qualifiers: Hypertension type: essential hypertension Qualified Code(s): I10 - Essential (primary) hypertension Plan to address problem: Catapress patch if necessary (7) DVT prophylaxis Current Visit: No Status: Acute Plan to address problem: On Lovenox
[2017-12-25] MEDS ORDERED: ZOFRAN ONE (23:36)
[2017-12-25] MEDS ORDERED: MORPHINE ONE (23:37)
[2017-12-25] MEDS: ZOFRAN IV PRN ×2 (23:40→23:42)
[2017-12-25] MEDS: MORPHINE IV PRN (23:42)
[2017-12-26] MEDS: D5NS 1,000 ML IV SCH ×3 (00:58→21:08)
[2017-12-26] MEDS: ZOFRAN IV PRN ×2 (01:04→21:06)
[2017-12-26] MEDS: MORPHINE IV PRN ×6 (01:04→21:07)
[2017-12-26 06:00] LABS: Basophils % (Auto) 0.1 % (0.0-1.8); Eosinophils % (Auto) 0.3 % (0.0-4.3); Hematocrit 36.2 % (35.5-45.6); Hemoglobin 11.7 gm/dl (11.8-15.2); Lymphocytes # (Auto) 0.7 K/mm3 (1.2-5.4); Lymphocytes % (Auto) 13.1 % (13.4-35.0); Mean Corpuscular HGB Conc 32 % (32-34); Mean Corpuscular Hemoglobin 29 pg (28-32); Mean Corpuscular Volume 88 fl (84-94); Monocytes # (Auto) 0.9 K/mm3 (0.0-0.8); Monocytes % (Auto) 15.9 % (0.0-7.3); Platelet Count 150 K/mm3 (140-440); Red Blood Count 4.11 M/mm3 (3.65-5.03)
[2017-12-26 06:20] LABS: Alanine Aminotransferase 9 units/L (7-56); Albumin 3.2 g/dL (3.9-5); BUN/Creatinine Ratio 20; Blood Urea Nitrogen 14 mg/dL (9-20); Calcium 8.6 mg/dL (8.4-10.2); Hemolysis Index 2
--- NOTE | 2017-12-26 10:34 | Gastroenterology Consultation ---
<KT SPAULDING - Last Filed: 12/26/17 11:15> History of Present Illness - Reason for Consult Consult date: 12/26/17 crohn's dieseas, partial SBO Requesting physician: CANDI LIVINGSTON - History of Present Illness Patient is a 47 y/o male with PMH of DM, HTN, and Crohn's disease (diagnosed in 1993 requiring partial resection and then had an enterocutaneous fistula and surgery in 2004 or 2005) who presented to ED with c/o RLQ abd pain that is intermittent and radiates across to left side of abdomen. Pain not exacerbated with po intake and relieved by pain medication only. CT in comparison from 12/17 with no unchanged findings of SBO at the level of the TI with inflammatory changes of the distal small bowel and cecum correlating with h/o Crohn's disease. He is well known to our service and has had multiple recent admissions for similar symptoms due to exacerbation of Crohn's disease with partial SBO 2/ 2 receiving inadequate care for the past several years from pt's non-compliance with follow up. He was last discharged on 12/20/2017 in stable condition on prednisone and imuran with further workup for biologic therapy to be done as an outpatient. He is currently passing flatus. Last BM 2 days ago with solid stool. No rectal bleeding or blood in stool. Denies fever, CP, SOB, dizziness, N /V, diarrhea, or constipation. No recent colonoscopy. Past History Past Medical History: diabetes, hypertension, other (Crohns disease) Past Surgical History: bowel surgery Social history: smoking. denies: alcohol abuse Family history: no significant family history Medications and Allergies Allergies Allergy/AdvReac Type Severity Reaction Status Date / Time No Known Allergies Allergy Unverified 11/20/17 10:31 Home Medications Medication Instructions Recorded Confirmed Last Taken Type Lisinopril [Zestril TAB] 10 mg PO QDAY 11/20/17 12/25/17 Unknown History Metformin HCl 1 tab PO DAILY 11/20/17 12/25/17 Unknown History Zolpidem [Ambien] 10 mg PO QHS 11/20/17 12/25/17 Unknown History azaTHIOprine [Imuran] 50 mg PO QDAY #30 tablet 12/21/17 12/25/17 Unknown Rx oxyCODONE /ACETAMINOPHEN [Percocet 1 tab PO Q6H PRN #14 tablet 12/21/17 Unknown Rx 5/325 mg] predniSONE [Deltasone] 40 mg PO QDAY #60 tablet 12/21/17 12/25/17 Unknown Rx Active Meds: Active Medications Acetaminophen (Tylenol) 650 mg PO Q4H PRN PRN Reason: Pain MILD(1-3)/Fever >100.5/SHOOK Bisacodyl (Dulcolax) 10 mg [place] QDAY PRN PRN Reason: Constipation unrelieved by MOM Enoxaparin Sodium (Lovenox) 40 mg SUB-Q QDAY@2200 KELLY Dextrose/Sodium Chloride (D5ns) 1,000 mls @ 100 mls/hr IV DIRECT KELLY Last Admin: 12/26/17 00:58 Dose: 100 mls/hr Magnesium Hydroxide (Milk Of Magnesia) 30 ml PO Q4H PRN PRN Reason: Constipation Morphine Sulfate (Morphine) 4 mg IV Q4H PRN PRN Reason: Pain , Severe (7-10) Last Admin: 12/26/17 08:22 Dose: 4 mg Ondansetron HCl (Zofran) 4 mg IV Q4H PRN PRN Reason: N/V unrelieved by Reglan Last Admin: 12/26/17 01:04 Dose: 4 mg Review of Systems - Review of Systems All systems: negative Gastrointestinal: abdominal pain (RLQ) Exam - Constitutional Vital Signs: Temp Pulse Resp BP Pulse Ox 99.0 F 88 18 122/80 98 12/26/17 07:45 12/26/17 07:45 12/26/17 07:45 12/26/17 07:45 12/26/17 08:48 General appearance: mild distress - EENT Eyes: PERRL, EOM intact ENT: hearing intact - Respiratory Respiratory: bilateral: CTA - Cardiovascular Rhythm: regular Heart Sounds: Present: S1 & S2 - Gastrointestinal General gastrointestinal: Present: soft, tender (RLQ), non-distended, normal bowel sounds, other (midline and RLQ scar from previous surgery) - Integumentary Integumentary: Present: warm, dry - Neurologic Neurological: alert and oriented x3 - Labs CBC & Chem 7: 12/26/17 04:40 12/26/17 04:40 Lab Results: Laboratory Results - last 24 hr 12/25/17 12/26/17 12/26/17 23:30 04:40 04:40 WBC 5.4 RBC 4.11 Hgb 11.7 L Hct 36.2 MCV 88 MCH 29 MCHC 32 RDW 17.0 H Plt Count 150 Lymph % (Auto) 13.1 L [place] % (Auto) 15.9 H Eos % (Auto) 0.3 Baso % (Auto) 0.1 Lymph # 0.7 L [place] # 0.9 H Eos # 0.0 Baso # 0.0 Seg Neutrophils % 70.6 H Seg Neutrophils # 3.8 Sodium 141 D Potassium 4.0 Chloride 97.8 L Carbon Dioxide 28 Anion Gap 19 BUN 14 Creatinine 0.7 L Estimated GFR > 60 BUN/Creatinine Ratio 20 Glucose 92 POC Glucose Hemoglobin A1c 6.8 H Calcium 8.6 Total Bilirubin 0.50 AST 7 ALT 9 Alkaline Phosphatase 52 Total Protein 5.8 L Albumin 3.2 L Albumin/Globulin Ratio 1.2 12/26/17 08:25 WBC RBC Hgb Hct MCV MCH MCHC RDW Plt Count Lymph % (Auto) [place] % (Auto) Eos % (Auto) Baso % (Auto) Lymph # [place] # Eos # Baso # Seg Neutrophils % Seg Neutrophils # Sodium Potassium Chloride Carbon Dioxide Anion Gap BUN Creatinine Estimated GFR BUN/Creatinine Ratio Glucose POC Glucose 97 Hemoglobin A1c Calcium Total Bilirubin AST ALT Alkaline Phosphatase Total Protein Albumin Albumin/Globulin Ratio Assessment and Plan 1.acute Crohn's disease 2.partial small bowel obstruction -WBC-WNL -CT in comparison from 12/17/17 with no unchanged findings of SBO at the level of the TI with inflammatory changes of the distal small bowel and cecum correlating with h/o Crohn's disease -etiology- progressive abdominal pain due to Crohn's exacerbation from inadequate care for the past several years 2/2 non-compliance now with partial bowel obstruction -restaging work up pending as an outpatient for biologic therapy with colonoscopy and SBFT ordered per Dr. Mix on 12/05/17 -quantiferon gold for TB and hepatitis screen negative -surgery following with no recommendations for a surgical intervention at this time -clear liquid diet -start on IV steroids and Imuran -continue supporitive care -tobacco cessation discussed with pt -will follow <STORM MIX - Last Filed: 12/26/17 18:06> Medications and Allergies Active Meds: Active Medications Acetaminophen (Tylenol) 650 mg PO Q4H PRN PRN Reason: Pain MILD(1-3)/Fever >100.5/SHOOK Last Admin: 12/26/17 12:39 Dose: 650 mg Azathioprine (Imuran) 50 mg PO QDAY [facility] Last Admin: 12/26/17 14:52 Dose: 50 mg Bisacodyl (Dulcolax) 10 mg [place] QDAY PRN PRN Reason: Constipation unrelieved by MOM Enoxaparin Sodium (Lovenox) 40 mg SUB-Q QDAY@2200 KELLY Dextrose/Sodium Chloride (D5ns) 1,000 mls @ 100 mls/hr IV DIRECT [facility] Last Admin: 12/26/17 10:37 Dose: 100 mls/hr Magnesium Hydroxide (Milk Of Magnesia) 30 ml PO Q4H PRN PRN Reason: Constipation Methylprednisolone Sodium Succinate (Solu-Medrol) 40 mg IV Q8H [facility] Last Admin: 12/26/17 14:52 Dose: 40 mg Morphine Sulfate (Morphine) 4 mg IV Q4H PRN PRN Reason: Pain , Severe (7-10) Last Admin: 12/26/17 12:38 Dose: 4 mg Ondansetron HCl (Zofran) 4 mg IV Q4H PRN PRN Reason: N/V unrelieved by Reglan Last Admin: 12/26/17 01:04 Dose: 4 mg Exam - Constitutional Vital Signs: Temp Pulse Resp BP Pulse Ox 100.8 F H 101 H 18 128/76 97 12/26/17 12:25 12/26/17 12:25 12/26/17 12:25 12/26/17 12:25 12/26/17 12:25 - Labs CBC & Chem 7: 12/26/17 04:40 12/26/17 04:40 Lab Results: Laboratory Results - last 24 hr 12/25/17 12/26/17 12/26/17 23:30 04:40 04:40 WBC 5.4 RBC 4.11 Hgb 11.7 L Hct 36.2 MCV 88 MCH 29 MCHC 32 RDW 17.0 H Plt Count 150 Lymph % (Auto) 13.1 L [place] % (Auto) 15.9 H Eos % (Auto) 0.3 Baso % (Auto) 0.1 Lymph # 0.7 L [place] # 0.9 H Eos # 0.0 Baso # 0.0 Seg Neutrophils % 70.6 H Seg Neutrophils # 3.8 Sodium 141 D Potassium 4.0 Chloride 97.8 L Carbon Dioxide 28 Anion Gap 19 BUN 14 Creatinine 0.7 L Estimated GFR > 60 BUN/Creatinine Ratio 20 Glucose 92 POC Glucose Hemoglobin A1c 6.8 H Calcium 8.6 Total Bilirubin 0.50 AST 7 ALT 9 Alkaline Phosphatase 52 Total Protein 5.8 L Albumin 3.2 L Albumin/Globulin Ratio 1.2 12/26/17 08:25 WBC RBC Hgb Hct MCV MCH MCHC RDW Plt Count Lymph % (Auto) [place] % (Auto) Eos % (Auto) Baso % (Auto) Lymph # [place] # Eos # Baso # Seg Neutrophils % Seg Neutrophils # Sodium Potassium Chloride Carbon Dioxide Anion Gap BUN Creatinine Estimated GFR BUN/Creatinine Ratio Glucose POC Glucose 97 Hemoglobin A1c Calcium Total Bilirubin AST ALT Alkaline Phosphatase Total Protein Albumin Albumin/Globulin Ratio Assessment and Plan - Patient Problems (1) Partial small bowel obstruction Current Visit: Yes Status: Acute (2) Acute Crohn's disease Current Visit: No Status: Acute Qualifiers: Digestive disease complication type: with intestinal obstruction Qualified Code(s): K50.912 - Crohn's disease, unspecified, with intestinal obstruction Plan to address problem: The patient was seen and examined. This is his 3rd admission in 5 weeks for partial SBO and Crohn's flare. Needs small bowel series at this point and needs a surgical opinion. He has been on moderately high dose steroids at home between admissions and [facility]. He has not been on TNF therapy or any immunomodulators as he has not been seen by a contracts administrator in several year. His lack of insurance has not allowed access by history. Now on high dose IV steroids again.
[2017-12-26] MEDS: IMURAN PO SCH (14:52)
--- NOTE | 2017-12-26 18:52 | Progress Note ---
Assessment and Plan Assessment and plan: (1) Partial small bowel obstruction Current Visit: Yes Status: Acute Plan to address problem: Conservative treatment. NG tube to suction if necessary Surgery consult appreciated (2) Exacerbation of Crohn's disease Current Visit: No Status: Acute Qualifiers: Digestive disease complication type: with intestinal obstruction Qualified Code(s): K50.912 - Crohn's disease, unspecified, with intestinal obstruction Plan to address problem: IV solumedrol if GI agrees (3) Intussusception Current Visit: Yes Status: Acute Plan to address problem: Mild should resolve spontaneously (4) Nicotine dependence Current Visit: No Status: Chronic Qualifiers: Nicotine product type: cigarettes Substance use status: in withdrawal Qualified Code(s): F17.213 - Nicotine dependence, cigarettes, with withdrawal Plan to address problem: Nicoderm patch (5) T2DM (type 2 diabetes mellitus) Current Visit: Yes Status: Chronic Qualifiers: Diabetes mellitus complication status: without complication Diabetes mellitus intermediate teacher insulin use: without detention use Qualified Code(s): E11.9 - Type 2 diabetes mellitus without complications Plan to address problem: Coverage for now (6) HTN (hypertension) Current Visit: Yes Status: Chronic Qualifiers: Hypertension type: essential hypertension Qualified Code(s): I10 - Essential (primary) hypertension Plan to address problem: Catapress patch if necessary (7) DVT prophylaxis Current Visit: No Status: Acute Plan to address problem: On Lovenox History Interval history: Patient seen and examined medical records reviewed GI and surgical evaluation and recommendations noted and appreciated Patient feels slightly better Vital signs reviewed Hospitalist Physical - Constitutional Vitals: Temp Pulse Resp BP Pulse Ox 100.8 F H 101 H 18 128/76 97 12/26/17 12:25 12/26/17 12:25 12/26/17 12:25 12/26/17 12:25 12/26/17 12:25 General appearance: Present: no acute distress, well-nourished - EENT Eyes: Present: PERRL, EOM intact - Neck Neck: Present: supple, normal ROM - Respiratory Respiratory effort: normal Respiratory: negative: rales, rhonchi, wheezing - Cardiovascular Rhythm: regular Heart Sounds: Present: S1 & S2 - Extremities Extremities: no ischemia, No edema - Abdominal General gastrointestinal: soft, non-tender, non-distended, normal bowel sounds - Integumentary Integumentary: Present: clear, warm - Psychiatric Psychiatric: appropriate mood/affect, cooperative - Neurologic Neurologic: CNII-XII intact, moves all extremities Results - Labs CBC & Chem 7: 12/26/17 04:40 12/26/17 04:40 Labs: Laboratory Last Values WBC 5.4 K/mm3 (4.5-11.0) 12/26/17 04:40 RBC 4.11 M/mm3 (3.65-5.03) 12/26/17 04:40 Hgb 11.7 gm/dl (11.8-15.2) L 12/26/17 04:40 Hct 36.2 % (35.5-45.6) 12/26/17 04:40 MCV 88 fl (84-94) 12/26/17 04:40 MCH 29 pg (28-32) 12/26/17 04:40 MCHC 32 % (32-34) 12/26/17 04:40 RDW 17.0 % (13.2-15.2) H 12/26/17 04:40 Plt Count 150 K/mm3 (140-440) 12/26/17 04:40 Lymph % (Auto) 13.1 % (13.4-35.0) L 12/26/17 04:40 [place] % (Auto) 15.9 % (0.0-7.3) H 12/26/17 04:40 Eos % (Auto) 0.3 % (0.0-4.3) 12/26/17 04:40 Baso % (Auto) 0.1 % (0.0-1.8) 12/26/17 04:40 Lymph # 0.7 K/mm3 (1.2-5.4) L 12/26/17 04:40 [place] # 0.9 K/mm3 (0.0-0.8) H 12/26/17 04:40 Eos # 0.0 K/mm3 (0.0-0.4) 12/26/17 04:40 Baso # 0.0 K/mm3 (0.0-0.1) 12/26/17 04:40 Seg Neutrophils % 70.6 % (40.0-70.0) H 12/26/17 04:40 Seg Neutrophils # 3.8 K/mm3 (1.8-7.7) 12/26/17 04:40 VBG pH 7.454 (7.320-7.420) H 12/25/17 09:00 Sodium 141 mmol/L (137-145) D 12/26/17 04:40 Potassium 4.0 mmol/L (3.6-5.0) 12/26/17 04:40 Chloride 97.8 mmol/L (98-107) L 12/26/17 04:40 Carbon Dioxide 28 mmol/L (22-30) 12/26/17 04:40 Anion Gap 19 mmol/L 12/26/17 04:40 BUN 14 mg/dL (9-20) 12/26/17 04:40 Creatinine 0.7 mg/dL (0.8-1.5) L 12/26/17 04:40 Estimated GFR > 60 ml/min 12/26/17 04:40 BUN/Creatinine Ratio 20 % 12/26/17 04:40 Glucose 92 mg/dL (75-100) 12/26/17 04:40 POC Glucose 97 (70-105) 12/26/17 08:25 Hemoglobin A1c 6.8 % (4-6) H 12/25/17 23:30 Calcium 8.6 mg/dL (8.4-10.2) 12/26/17 04:40 Total Bilirubin 0.50 mg/dL (0.1-1.2) 12/26/17 04:40 AST 7 units/L (5-40) 12/26/17 04:40 ALT 9 units/L (7-56) 12/26/17 04:40 Alkaline Phosphatase 52 units/L (35-129) 12/26/17 04:40 Total Protein 5.8 g/dL (6.3-8.2) L 12/26/17 04:40 Albumin 3.2 g/dL (3.9-5) L 12/26/17 04:40 Albumin/Globulin Ratio 1.2 % 12/26/17 04:40 Urine Color [place] (Yellow) 12/25/17 09:08 Urine Turbidity Clear (Clear) 12/25/17 09:08 Urine pH 5.0 (5.0-7.0) 12/25/17 09:08 Ur Specific [place] 1.030 (1.003-1.030) 12/25/17 09:08 Urine Protein 30 mg/dl mg/dL (Negative) 12/25/17 09:08 Urine Glucose (UA) Neg mg/dL (Negative) 12/25/17 09:08 Urine Ketones Tr mg/dL (Negative) 12/25/17 09:08 Urine Blood Neg (Negative) 12/25/17 09:08 Urine Nitrite Neg (Negative) 12/25/17 09:08 Urine Bilirubin Neg (Negative) 12/25/17 09:08 Urine Urobilinogen 2.0 mg/dL (<2.0) 12/25/17 09:08 Ur Leukocyte Esterase Neg (Negative) 12/25/17 09:08 Urine WBC (Auto) 2.0 /HPF (0.0-6.0) 12/25/17 09:08 Urine RBC (Auto) 1.0 /HPF (0.0-6.0) 12/25/17 09:08 Urine Mucus Few /HPF 12/25/17 09:08
[2017-12-26] MEDS ORDERED: D50W (25GM) Syringe IV PRN (19:21)
[2017-12-26] MEDS: LOVENOX SUB-Q SCH (21:06)
[2017-12-26] MEDS: NOVOLOG SUB-Q SCH (21:27)
[2017-12-26] MEDS ORDERED: NOVOLOG SUB-Q SCH (22:00)
[2017-12-27] MEDS: MORPHINE IV PRN ×4 (01:28→14:43)
[2017-12-27] MEDS: ZOFRAN IV PRN (05:33)
[2017-12-27] MEDS: D5NS 1,000 ML IV SCH ×2 (05:47→21:54)
[2017-12-27] MEDS: NOVOLOG SUB-Q SCH ×4 (08:16→22:22)
[2017-12-27] MEDS: IMURAN PO SCH (09:38)
--- NOTE | 2017-12-27 10:00 | Progress Note ---
Assessment and Plan 47-year-old male with 1. Crohn's disease exacerbation 2. Diabetes 3. persistent pSBO secondary to Crohns disease Plan: 1. continue imuran and steroids per GI 2. PO pain control - would avoid the use of narcotics. 3. may adv diet per GI 4. for SBFT today 5. will continue to monitor patient's clinical progress. No surgical intervention is warranted at this time. Thank you for this consultation, please call with any questions or concerns. Subjective Date of service: 12/27/17 Narrative: Pt seen and examined. No overnight events or acute complaints. Feels slightly better. No n/v, tolerated clear liquids. +BM but hard, +flatus. No f/c. Objective Vital Signs - 12hr 12/26/17 12/27/17 22:00 05:39 Temperature 97.5 F L Pulse Rate 67 Blood Pressure 123/71 [Right] O2 Sat by Pulse 97 Oximetry - General physical appearance Narrative Exam: Gen: AAOx3, NAD CV: s1, S2+ resp: even and unlabored Abd: soft, ND, +RLQ TTP, no r/r/g Ext: no c/c/e - Labs 12/26/17 04:40 12/26/17 04:40
[2017-12-27] MEDS: DILAUDID IV PRN ×2 (17:35→21:53)
--- NOTE | 2017-12-27 18:05 | Gastroenterology Progress Note ---
Assessment and Plan - Patient Problems (1) Partial small bowel obstruction Current Visit: Yes Status: Acute (2) Acute Crohn's disease Current Visit: No Status: Acute Qualifiers: Digestive disease complication type: with intestinal obstruction Qualified Code(s): K50.912 - Crohn's disease, unspecified, with intestinal obstruction Plan to address problem: Small bowel series in progress to assess the level and extent of the stricture/ partial obstruction. He is clinically stable on IV steroids and Imuran. May have low residue diet. Subjective Date of service: 12/27/17 Principal diagnosis: Crohn's disease with partial SBO Interval history: He reports feeling about the same. Moderate RLQ pain. No nausea or vomiting Objective - Constitutional Vitals: Temp Pulse Resp BP Pulse Ox 97.7 F 75 20 127/87 100 12/27/17 16:00 12/27/17 16:00 12/27/17 16:00 12/27/17 16:00 12/27/17 16:00 General appearance: no acute distress - EENT ENT: hearing intact, clear oral mucosa - Respiratory Respiratory effort: normal Respiratory: bilateral: CTA - Cardiovascular Rhythm: regular - Gastrointestinal General gastrointestinal: Present: soft, tender (Tender in RLQ, no rebound), non -distended, normal bowel sounds - Labs CBC & Chem 7: 12/26/17 04:40 12/26/17 04:40 Labs: Laboratory Results - last 24 hr 12/26/17 12/27/17 12/27/17 21:09 07:24 16:06 POC Glucose 232 H 189 H 355 H
--- NOTE | 2017-12-27 20:34 | Progress Note ---
Assessment and Plan Assessment and plan: (1) Partial small bowel obstruction Current Visit: Yes Status: Acute Plan to address problem: Surgery evaluation appreciated, No surgical intervention Conservative treatment, NG tube to suction as needed (2) Exacerbation of Crohn's disease Current Visit: No Status: Acute Qualifiers: Digestive disease complication type: with intestinal obstruction Qualified Code(s): K50.912 - Crohn's disease, unspecified, with intestinal obstruction Plan to address problem: GI evaluation noted and appreciated continue steroids and Imuran (3) Intussusception Current Visit: Yes Status: Acute Plan to address problem: supportive care (4) Nicotine dependence Current Visit: No Status: Chronic Qualifiers: Nicotine product type: cigarettes Substance use status: in withdrawal Qualified Code(s): F17.213 - Nicotine dependence, cigarettes, with withdrawal Plan to address problem: counselling done,Nicoderm patch as needed (5) T2DM (type 2 diabetes mellitus) Current Visit: Yes Status: Chronic Qualifiers: Diabetes mellitus complication status: without complication Diabetes mellitus retirement insulin use: without retirement use Qualified Code(s): E11.9 - Type 2 diabetes mellitus without complications Plan to address problem: Accu checks, SSC, ADA diet (6) HTN (hypertension) Current Visit: Yes Status: Chronic Qualifiers: Hypertension type: essential hypertension Qualified Code(s): I10 - Essential ( primary) hypertension Plan to address problem: stable, continue current antihypertensives and PRN medications. (7) DVT prophylaxis Current Visit: No Status: Acute Plan to address problem: On Lovenox consults and recommendations ,noted and appreciated. Plan of care reviewed with the patient and the nurse History Interval history: Sincerely and examined medical records reviewed Physical exhibit and no new complaints Undergoing small bowel series imaging study Complaints of severe pain asking for more pain medications Vital signs reviewed Hospitalist Physical - Constitutional Vitals: Temp Pulse Resp BP Pulse Ox 97.7 F 75 20 127/87 100 12/27/17 16:00 12/27/17 16:00 12/27/17 16:00 12/27/17 16:00 12/27/17 16:00 General appearance: Present: no acute distress, well-nourished - EENT Eyes: Present: PERRL, EOM intact - Neck Neck: Present: supple, normal ROM - Respiratory Respiratory effort: normal Respiratory: negative: rales, rhonchi, wheezing - Cardiovascular Rhythm: regular Heart Sounds: Present: S1 & S2 - Extremities Extremities: no ischemia, No edema - Abdominal General gastrointestinal: soft, tender (no guarding ,no rigidity), non-distended , normal bowel sounds - Integumentary Integumentary: Present: clear, warm - Psychiatric Psychiatric: appropriate mood/affect, cooperative - Neurologic Neurologic: CNII-XII intact, moves all extremities Results - Labs CBC & Chem 7: 12/26/17 04:40 12/26/17 04:40 Labs: Laboratory Last Values WBC 5.4 K/mm3 (4.5-11.0) 12/26/17 04:40 RBC 4.11 M/mm3 (3.65-5.03) 12/26/17 04:40 Hgb 11.7 gm/dl (11.8-15.2) L 12/26/17 04:40 Hct 36.2 % (35.5-45.6) 12/26/17 04:40 MCV 88 fl (84-94) 12/26/17 04:40 MCH 29 pg (28-32) 12/26/17 04:40 MCHC 32 % (32-34) 12/26/17 04:40 RDW 17.0 % (13.2-15.2) H 12/26/17 04:40 Plt Count 150 K/mm3 (140-440) 12/26/17 04:40 Lymph % (Auto) 13.1 % (13.4-35.0) L 12/26/17 04:40 [place] % (Auto) 15.9 % (0.0-7.3) H 12/26/17 04:40 Eos % (Auto) 0.3 % (0.0-4.3) 12/26/17 04:40 Baso % (Auto) 0.1 % (0.0-1.8) 12/26/17 04:40 Lymph # 0.7 K/mm3 (1.2-5.4) L 12/26/17 04:40 [place] # 0.9 K/mm3 (0.0-0.8) H 12/26/17 04:40 Eos # 0.0 K/mm3 (0.0-0.4) 12/26/17 04:40 Baso # 0.0 K/mm3 (0.0-0.1) 12/26/17 04:40 Seg Neutrophils % 70.6 % (40.0-70.0) H 12/26/17 04:40 Seg Neutrophils # 3.8 K/mm3 (1.8-7.7) 12/26/17 04:40 VBG pH 7.454 (7.320-7.420) H 12/25/17 09:00 Sodium 141 mmol/L (137-145) D 12/26/17 04:40 Potassium 4.0 mmol/L (3.6-5.0) 12/26/17 04:40 Chloride 97.8 mmol/L (98-107) L 12/26/17 04:40 Carbon Dioxide 28 mmol/L (22-30) 12/26/17 04:40 Anion Gap 19 mmol/L 12/26/17 04:40 BUN 14 mg/dL (9-20) 12/26/17 04:40 Creatinine 0.7 mg/dL (0.8-1.5) L 12/26/17 04:40 Estimated GFR > 60 ml/min 12/26/17 04:40 BUN/Creatinine Ratio 20 % 12/26/17 04:40 Glucose 92 mg/dL (75-100) 12/26/17 04:40 POC Glucose 355 (70-105) H 12/27/17 16:06 Hemoglobin A1c 6.8 % (4-6) H 12/25/17 23:30 Calcium 8.6 mg/dL (8.4-10.2) 12/26/17 04:40 Total Bilirubin 0.50 mg/dL (0.1-1.2) 12/26/17 04:40 AST 7 units/L (5-40) 12/26/17 04:40 ALT 9 units/L (7-56) 12/26/17 04:40 Alkaline Phosphatase 52 units/L (35-129) 12/26/17 04:40 Total Protein 5.8 g/dL (6.3-8.2) L 12/26/17 04:40 Albumin 3.2 g/dL (3.9-5) L 12/26/17 04:40 Albumin/Globulin Ratio 1.2 % 12/26/17 04:40 Urine Color [place] (Yellow) 12/25/17 09:08 Urine Turbidity Clear (Clear) 12/25/17 09:08 Urine pH 5.0 (5.0-7.0) 12/25/17 09:08 Ur Specific [place] 1.030 (1.003-1.030) 12/25/17 09:08 Urine Protein 30 mg/dl mg/dL (Negative) 12/25/17 09:08 Urine Glucose (UA) Neg mg/dL (Negative) 12/25/17 09:08 Urine Ketones Tr mg/dL (Negative) 12/25/17 09:08 Urine Blood Neg (Negative) 12/25/17 09:08 Urine Nitrite Neg (Negative) 12/25/17 09:08 Urine Bilirubin Neg (Negative) 12/25/17 09:08 Urine Urobilinogen 2.0 mg/dL (<2.0) 12/25/17 09:08 Ur Leukocyte Esterase Neg (Negative) 12/25/17 09:08 Urine WBC (Auto) 2.0 /HPF (0.0-6.0) 12/25/17 09:08 Urine RBC (Auto) 1.0 /HPF (0.0-6.0) 12/25/17 09:08 Urine Mucus Few /HPF 12/25/17 09:08
[2017-12-27] MEDS: LOVENOX SUB-Q SCH (21:54)
[2017-12-28] MEDS: DILAUDID IV PRN ×3 (02:00→10:12)
[2017-12-28] MEDS: D5NS 1,000 ML IV SCH (07:23)
[2017-12-28 07:59] VITALS: BP 133/79
[2017-12-28] MEDS: NOVOLOG SUB-Q SCH ×2 (08:00→12:04)
--- NOTE | 2017-12-28 08:55 | Fluoroscopy Report ---
FLUOROSCOPY SMALL BOWEL SERIES INDICATION: Crohn's disease. Evaluate partial small bowel obstruction. COMPARISON: 12/25/2017 CT. FINDINGS: Small bowel series performed. Total 11 images obtained. Initial it software engineer radiograph again suggests few dilated upper abdominal bowel loops with caliber of approximately 4 cm on the right and 7.5 cm on the left. Decompressed descending colon noted. Serial radiographs obtained after ingestion of oral contrast and demonstrate prompt opacification of residual stomach and proximal small bowel in this patient with prior probable partial gastric resection and gastrojejunostomy. Numerous upper abdominal/right upper quadrant surgical clips also noted. Dilated antegrade small bowel loops with calibers ranging between 5-8 cm. A 12 hour image demonstrates lower abdominal small bowel caliber of 5.8 cm with poor filling approaching the region of the terminal ileum/cecum/ascending colon. Approximately 22 hour radiograph again demonstrates dilated lower abdominal small bowel caliber of approximately 6 cm with irregular filling of the ileocecal region/residual ascending colon, corresponding to inflammatory changes on CT. Visualized remainder transverse colon appears unremarkable. CONCLUSION: 1. Partial small bowel obstruction with dilated mid to distal small bowel with irregular filling about the ileocecal region and the ascending colon corresponding to CT inflammatory changes in this patient with possibly active Crohn's disease, as described. Please correlate. 2. Various other findings, as above. Thank you for the opportunity to participate in this patient's care.
--- NOTE | 2017-12-28 09:32 | Gastroenterology Progress Note ---
Assessment and Plan 1.acute Crohn's disease 2.partial small bowel obstruction -CT in comparison from 12/17/17 with no unchanged findings of SBO at the level of the TI with inflammatory changes of the distal small bowel and cecum correlating with h/o Crohn's disease -etiology- progressive abdominal pain due to Crohn's exacerbation from inadequate care for the past several years 2/2 non-compliance now with partial bowel obstruction -SBFT showed partial small bowel obstruction and inflammatory changes corresponding to CT -will change IV steroids to PO -continue imuran -continue low residue diet -continue supportive care -tobacco cessation -recommend surgery evaluation of SBFT-if no recommendations for surgical intervention given, pt okay to be d/c per GI standpoint on prednisone 40mg/day and imuran 50mg/day with f/u clinic appt to re-initiate biology therapy -will sign off, please call if needed Subjective Date of service: 12/28/17 Principal diagnosis: Crohn's disease with partial SBO Interval history: No acute events overnight. Patient states he feels about the same w/ moderate RLQ pain. Tolerating diet w/o N/V. BM x 1 yesterday. Objective - Constitutional Vitals: Temp Pulse Resp BP Pulse Ox 97.7 F 61 18 133/79 97 12/28/17 07:17 12/28/17 07:17 12/28/17 07:17 12/28/17 07:17 12/28/17 07:17 General appearance: no acute distress, well-nourished - Respiratory Respiratory: bilateral: CTA - Cardiovascular Rhythm: regular Heart Sounds: Present: S1 & S2 - Gastrointestinal General gastrointestinal: Present: soft, tender (RLQ), non-distended, normal bowel sounds - Neurologic Neurological: alert and oriented x3 - Labs CBC & Chem 7: 12/26/17 04:40 12/26/17 04:40 Labs: Laboratory Results - last 24 hr 12/27/17 12/27/17 12/28/17 16:06 22:06 07:23 POC Glucose 355 H 121 H 181 H
[2017-12-28] MEDS: IMURAN PO SCH (09:38)
[2017-12-28] MEDS ORDERED: DELTASONE PO SCH (10:00)
--- NOTE | 2017-12-28 10:29 | Progress Note ---
Assessment and Plan 47-year-old male with 1. Crohn's disease exacerbation 2. Diabetes 3. persistent pSBO secondary to Crohns disease Plan: 1. continue imuran and steroids per GI 2. PO pain control - would avoid the use of narcotics. 3. may adv to soft diet 4. SBFT reviewed and d/w GI - findings consistent with pSBO similar to that shown on CT scan. Patient is tolerating a diet, having flatus and BM 5. Agree with GI assessment and plan. Recommend outpt f/u with GI to initiate remicaide. Given his current clinical status and imaging, there is no urgent need for surgery at this time. If the patient fails conservative treatment of Crohns may follow up with surgery as outpatient. Thank you for this consultation, please call with any questions or concerns. Subjective Date of service: 12/28/17 Narrative: Pt seen and examined. c/o RLQ abd pain, unchanged. Tolerating a diet without n/ v. NO f/c. S/P SBFT yesterday. Objective Vital Signs - 12hr 12/28/17 07:17 Temperature 97.7 F Pulse Rate 61 Respiratory 18 Rate Blood Pressure 133/79 O2 Sat by Pulse 97 Oximetry - General physical appearance Narrative Exam: Gen: AAOx3. NAD CV: s1, S2+ resp: even and unlabored Abd: soft, ND, +RLQ TTP, no r/r/g Ext: no c/c/e - Labs 12/26/17 04:40 12/26/17 04:40
--- NOTE | 2017-12-28 13:05 | Discharge Summary ---
Providers - Providers Date of Admission: 12/25/17 23:24 Date of discharge: 12/28/17 Attending physician: ANDREW COLBY 12/25/17 14:57 Consult to Physician [CONS] Urgent Consulting Provider: FELICITAS BERRIOS Reason For Exam: abdominal pain, small bowel obstruction Place consult to:: Dr. Berrios Notified:: office number Phone number called:: [phone] Was contact made?: Yes If yes, spoke with:: Dr. Berrios Time called:: 14:55 Comment:: Dr. Maria (er dr) spoke with Dr. Berrios 12/26/17 08:58 Consult to Physician [CONS] Routine Consulting Provider: STORM LLANES Reason For Exam: Crohn's disease Notified:: yes Primary care physician: STOCK SHIPPER Hospitalization Reason for admission: Rt lower quadrant pain Condition: Fair Pertinent studies: CT abdomen and pelvis:Small bowel obstruction, Intususseption Small bowel series: Partial small bowel obstruction Hospital course: 47 yr old patient with h/o Crohns dis was admitted with Rt LQ abd pain, Evaluation consistant with partial SBO Seen and evaluated by surgery,no surgical intervention conservative management with NPO,NG suction as needed. Evaluated by GI, advised supportive care and advised to continueImuran and Steroids, Diet was started gradually with clear liquids, advanced as tolerated. Today pt is comfortable,no new complaints,vitals stable physical exam no new changes. Cleared by surgery and GI for d/c and f/u with them per schedule upon d/c Patient is stable at d/c Discharge Diagnosis: --Crohn's disease exacerbation --Partial Small bowel obstruction --Type 2 Diabetes --Hypertension --Tobacco use Disposition: DC-01 TO HOME OR SELFCARE Time spent for discharge: 32 min Core Measure Documentation - Palliative Care Palliative Care/ Comfort Measures: Not Applicable - Core Measures Any of the following diagnoses?: none Exam - Constitutional Vitals: Temp Pulse Resp BP Pulse Ox 97.7 F 61 18 133/79 97 12/28/17 07:17 12/28/17 07:17 12/28/17 07:17 12/28/17 07:17 12/28/17 07:17 General appearance: Present: no acute distress, well-nourished - EENT Eyes: Present: PERRL, EOM intact - Neck Neck: Present: supple, normal ROM - Respiratory Respiratory effort: normal Respiratory: negative: rales, rhonchi, wheezing - Cardiovascular Rhythm: regular Heart Sounds: Present: S1 & S2 - Extremities Extremities: no ischemia, No edema - Abdominal General gastrointestinal: Present: soft, non-tender, non-distended, normal bowel sounds - Integumentary Integumentary: Present: clear, warm - Musculoskeletal Musculoskeletal: strength equal bilaterally - Psychiatric Psychiatric: appropriate mood/affect, cooperative - Neurologic Neurologic: CNII-XII intact, moves all extremities Plan Activity: no restrictions Diet: advance as tolerated Follow up with: DULCE PATEL MD [Staff Physician] - 3-5 Days (Dr. Patel is a outside salesperson. Please follow up with him for further evaluation of the protein in your urine) PRIMARY CARE, [Primary Care Provider] - 3-5 Days MICHAEL BOLAÑOS DO [Staff Physician] - 7 Days STORM LLANES MD [Staff Physician] - 7 Days Prescriptions: oxyCODONE /ACETAMINOPHEN [Percocet 5/325 mg] 1 tab PO BID PRN #14 tablet PRN Reason: Pain, Moderate (4-6)
== END 2017-12-28 15:44 | disposition home or self-care (01) | DRG 386 ==
LOC: ED 08:33 → 3A 23:24 → 3B-SURG 23:58
PROVIDERS: ADMIT Internal Medicine; ATTEND Internal Medicine
DX: K50.90 Crohn's disease, unspecified, without complications (principal); K56.600 Partial intestinal obstruction, unspecified as to cause; E11.9 Type 2 diabetes mellitus without complications; I10 Essential (primary) hypertension; F12.10 Cannabis abuse, uncomplicated; Z79.899 Other long term (current) drug therapy; F17.200 Nicotine dependence, unspecified, uncomplicated
CPT/HCPCS: 36415; 74177; 74250; 80053; 81001; 82805; 82962; 83036; 85025; 96361; 96374; 96375; J1170; J1650; J1815; J1885; J2270; J2405; J2920; J7030; J7042; J7500; J7512; Q9967

== ENCOUNTER 2018-01-08 14:01 | Emergency (ER) | payer SELFPAY ==
[2018-01-08 14:11] VITALS: BP 140/80
[2018-01-08 14:40] LABS: Basophils % (Auto) 0.2 % (0.0-1.8); Hemoglobin 12.3 gm/dl (11.8-15.2); Lymphocytes # (Auto) 0.3 K/mm3 (1.2-5.4); Lymphocytes % (Auto) 5.2 % (13.4-35.0); Mean Corpuscular HGB Conc 32 % (32-34); Mean Corpuscular Hemoglobin 28 pg (28-32); Mean Corpuscular Volume 88 fl (84-94); Monocytes # (Auto) 0.4 K/mm3 (0.0-0.8); Monocytes % (Auto) 6.2 % (0.0-7.3); Platelet Count 268 K/mm3 (140-440); Red Blood Count 4.46 M/mm3 (3.65-5.03); Red Cell Distribution Width 16.7 % (13.2-15.2)
[2018-01-08 14:59] LABS: BUN/Creatinine Ratio 22; Blood Urea Nitrogen 13 mg/dL (9-20); Calcium 8.4 mg/dL (8.4-10.2)
[2018-01-08 15:00] LABS: Alanine Aminotransferase 13 units/L (7-56); Albumin 3.3 g/dL (3.9-5); Hemolysis Index 12
[2018-01-08 18:22] LABS: Bilirubin,Urine NEG (Negative); Blood,Urine NEG (Negative); Color,Urine Yellow (Yellow); Mucus,Urine FEW /HPF; Protein,Urine <15 mg/dL mg/dL (Negative); RBC,Urine < 1.0 /HPF (0.0-6.0); Urobilinogen,Urine < 2.0 mg/dL (<2.0); WBC,Urine < 1.0 /HPF (0.0-6.0)
== END 2018-01-08 14:08 | disposition left against medical advice (07) ==
LOC: ED 14:01
DX: R10.9 Unspecified abdominal pain (principal); Z53.21 Procedure and treatment not carried out due to patient leaving prior to being seen by health care provider
CPT/HCPCS: 36415; 80053; 81001; 85025

== ENCOUNTER 2018-01-17 03:23 | Inpatient (IN) | payer OTHER ==
[2018-01-17] MEDS ORDERED: ZOFRAN ODT ONE (03:45)
[2018-01-17] MEDS ORDERED: ZOFRAN ODT PO ONE (03:45)
[2018-01-17] MEDS ORDERED: TORADOL ONE (04:08)
[2018-01-17] MEDS ORDERED: TORADOL IV ONE (04:49)
[2018-01-17 05:04] LABS: Basophils % (Auto) 0.3 % (0.0-1.8); Eosinophils % (Auto) 0.3 % (0.0-4.3); Hemoglobin 14.7 gm/dl (11.8-15.2); Lymphocytes # (Auto) 1.1 K/mm3 (1.2-5.4); Lymphocytes % (Auto) 13.7 % (13.4-35.0)
[2018-01-17 05:21] LABS: Hematocrit 44.9 % (35.5-45.6); Mean Corpuscular HGB Conc 33 % (32-34); Mean Corpuscular Hemoglobin 28 pg (28-32); Mean Corpuscular Volume 87 fl (84-94); Platelet Count 406 K/mm3 (140-440); Red Blood Count 5.15 M/mm3 (3.65-5.03); Red Cell Distribution Width 16.3 % (13.2-15.2)
--- NOTE | 2018-01-17 05:26 | Cat Scan Report ---
FINAL REPORT EXAM: CT ABDOMEN PELVIS WO CON HISTORY: abd pain TECHNIQUE: Routine axial imaging was obtained of the abdomen pelvis without oral or IV contrast. Sagittal and coronal reconstructions were reviewed. Comparison is made to the study of 12/25/2017. FINDINGS: The lung bases are clear. Pleural fluid is not seen. There are surgical anastomotic suture lines in the upper abdomen. The liver, gallbladder, pancreas, spleen, and adrenal glands appear normal. The kidneys show no evidence of stones or hydronephrosis. There calcification of the abdominal aorta. There is marked distention of multiple small bowel loops with air-fluid levels proximal to the ileocecal junction with there are diffuse inflammatory changes. There is no evidence of abscess. The findings compatible with a high-grade mechanical small bowel obstruction. The colon otherwise is decompressed. There is no evidence of free fluid or adenopathy. In the pelvis the prostate gland and bladder appear normal. The skeletal structures do not show any acute change. IMPRESSION: High-grade mechanical small bowel obstruction proximal to the ileocecal junction where there are diffuse inflammatory changes compatible history recurrent Crohn's disease. No evidence of abscess formation or adenopathy.
[2018-01-17 05:27] LABS: Alanine Aminotransferase 10 units/L (7-56); Albumin 3.5 g/dL (3.9-5); BUN/Creatinine Ratio 15; Blood Urea Nitrogen 17 mg/dL (9-20); Calcium 9.7 mg/dL (8.4-10.2); Hemolysis Index 4
--- NOTE | 2018-01-17 05:53 | Emergency Department Report ---
ED Abdominal Pain HPI - General Chief Complaint: Abdominal Pain Time Seen by Provider: 01/17/18 05:40 Source: patient Mode of arrival: Ambulatory Limitations: No Limitations - History of Present Illness Initial Comments: About 2 months ago the patient was diagnosed as small bowel obstruction. He was supposed to have a colonoscopy with Dr. Mix today. He took GoLYTELY and apparently did not have any bowel movement. He was having abdominal pain nausea vomiting and as such came into the emergency room to be evaluated MD Complaint: abdominal pain Onset/Timin (day) -: Gradual Location: diffuse Radiation: none Migration to: no migration Severity: severe Severity scale (0 -10): 10 Quality: cramping Consistency: constant Improves With: nothing Worsens With: nothing Associated Symptoms: nausea, vomiting - Related Data Home Medications Medication Instructions Recorded Confirmed Last Taken Lisinopril [Zestril TAB] 10 mg PO QDAY 11/20/17 12/25/17 Unknown Metformin HCl 1 tab PO DAILY 11/20/17 12/25/17 Unknown Zolpidem [Ambien] 10 mg PO QHS 11/20/17 12/25/17 Unknown Previous Rx's Medication Instructions Recorded Last Taken Type azaTHIOprine [Imuran] 50 mg PO QDAY #30 tablet 12/21/17 Unknown Rx predniSONE [Deltasone] 40 mg PO QDAY #60 tablet 12/21/17 Unknown Rx oxyCODONE /ACETAMINOPHEN [Percocet 1 tab PO BID PRN #14 tablet 12/28/17 Unknown Rx 5/325 mg] Allergies Allergy/AdvReac Type Severity Reaction Status Date / Time No Known Allergies Allergy Unverified 11/20/17 10:31 ED Review of Systems ROS: Stated complaint: LACERATION Other details as noted in HPI Comment: All other systems reviewed and negative ED Past Medical Hx - Past Medical History Previous Medical History?: Yes Hx Hypertension: Yes Hx Diabetes: Yes Hx COPD: No Hx HIV: No Additional medical history: Crohn's Disease, Bowel obstruction - Surgical History Past Surgical History?: Yes Additional Surgical History: 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 Gastric surgery (patient uncertain what was done) - Social History Smoking Status: Current Every Day Smoker Substance Use Type: Alcohol, Marijuana - Medications Home Medications: Home Medications Medication Instructions Recorded Confirmed Last Taken Type Lisinopril [Zestril TAB] 10 mg PO QDAY 11/20/17 12/25/17 Unknown History Metformin HCl 1 tab PO DAILY 11/20/17 12/25/17 Unknown History Zolpidem [Ambien] 10 mg PO QHS 11/20/17 12/25/17 Unknown History azaTHIOprine [Imuran] 50 mg PO QDAY #30 tablet 12/21/17 12/25/17 Unknown Rx predniSONE [Deltasone] 40 mg PO QDAY #60 tablet 12/21/17 12/25/17 Unknown Rx oxyCODONE /ACETAMINOPHEN [Percocet 1 tab PO BID PRN #14 tablet 12/28/17 Unknown Rx 5/325 mg] ED Physical Exam - General Limitations: No Limitations General appearance: alert, in no apparent distress - Head Head exam: Present: atraumatic, normocephalic - Eye Eye exam: Present: normal appearance. Absent: PERRL - ENT ENT exam: Present: mucous membranes moist - Neck Neck exam: Present: normal inspection. Absent: tenderness - Respiratory Respiratory exam: Present: normal lung sounds bilaterally. Absent: respiratory distress - Cardiovascular Cardiovascular Exam: Present: regular rate, normal rhythm. Absent: systolic murmur, diastolic murmur, rubs, gallop - GI/Abdominal GI/Abdominal exam: Present: soft, normal bowel sounds - Rectal Rectal exam: Present: deferred - Extremities Exam Extremities exam: Present: normal inspection - Back Exam Back exam: Present: normal inspection - Neurological Exam Neurological exam: Present: alert, oriented X3 - Psychiatric Psychiatric exam: Present: normal affect, normal mood - Skin Skin exam: Present: warm, dry, intact, normal color. Absent: rash ED Course Vital Signs 01/17/18 01/17/18 01/17/18 03:37 03:46 04:00 Pulse Rate 143 H 133 H 129 H Respiratory 15 20 19 Rate Blood Pressure 112/83 112/83 O2 Sat by Pulse Oximetry 01/17/18 05:40 Pulse Rate Respiratory 18 Rate Blood Pressure O2 Sat by Pulse 98 Oximetry - Reevaluation(s) Reevaluation #1: 01/17/18 06:53 Attempt to put an NG tube in the patient resulted in bleeding from his nose . I spoke to Dr. Velásquez about this and she suggested that we can hold off on the NG tube right now since the patient was not actively vomiting. ED Medical Decision Making - Lab Data Result diagrams: 01/17/18 04:41 01/17/18 04:41 - Medical Decision Making I spoke to Dr. Mix who has accepted that he will consult on the patient. I also spoke to Dr. Chan who as also accepted to consult on the patient. Dr. Dowling advised that the patient be admitted to the hospitalist service. Dr. Renee has accepted the patient for Dr. Sanders Critical care attestation.: If time is entered above; I have spent that time in minutes in the direct care of this critically ill patient, excluding procedure time. ED Disposition Clinical Impression: Small bowel obstruction Disposition: OP ADMIT IP TO THIS HOSP Is pt being admited?: Yes Does the pt Need Aspirin: No Condition: Stable Referrals: FAUSTINO SAENZ MD [Primary Care Provider] - 3-5 Days
[2018-01-17] MEDS ORDERED: NACL 0.9% 1000 ML 1,000 ML IV ONE (06:14)
[2018-01-17] MEDS ORDERED: SUBLIMAZE IV ONE (06:15)
[2018-01-17] MEDS ORDERED: NACL 0.9% 1000 ML 1,000 ML IV SCH ×2 (07:00→08:00)
--- NOTE | 2018-01-17 07:30 | History and Physical Report ---
History of Present Illness Date of examination: 01/17/18 Date of admission: 01/17/18 06:09 Chief complaint: Abd pains w/ n/v History of present illness: Patient is 47 yo WM with a history of tobacco dependancy, Crohn's x 26 years with multiple complication including recent SBO, just discharge on 12/28/17 with SBO, started on Imuran by Dr. Mix, on 40mg oral prednisone daily >2 months who followed up with Dr. Mix after discharge on 12/28/17 and was scheduled for colonscopy today, he was given miralax with gatorade as a laxative prep. After he completed the prep last night, he developed severe constant crampy sharp Left lower quadrant abd. pains radiating diffuse across entire abdomen followed by brownish n/v and no bowel movement. This is similar pain as prior SBO. He has history of NIDDM on metformin, hypertension on Lisinopril and insomnia on Ambien prn. He denies cp, sob, fever, chills, new cough, severe headaches. He is [age]. PMH: as hpi PSH: Intestinal fistula repair, duodenal repair surgery SH: 3 cigs per day, no etoh in last 3 months, +recreational marijuana FH: mother with htn, dm ROS: Constitutional: denies: fever ENT: denies: throat or neck pain Respiratory: denies: cough, shortness of breath Cardiovascular: denies: chest pain Endocrine: +weight loss Gastrointestinal:+abdominal pain, nausea Genitourinary: denies: dysuria Rectal: denies no incontinence, no bleeding, no itching, no discharge Musculoskeletal: denies swelling, myaglia, muscle weakness Skin: denies: rash Neurological: + headache, frontal Hematological/Lymphatic: denies: easy bleeding or easy bruising Allergic/Immunologic: no urticaria, no allergic rhinitis, no anaphylaxis Psych: denies sadness or hopelessness, SI/HI Medications and Allergies Allergies Allergy/AdvReac Type Severity Reaction Status Date / Time No Known Allergies Allergy Unverified 11/20/17 10:31 Home Medications Medication Instructions Recorded Confirmed Last Taken Type Lisinopril [Zestril TAB] 10 mg PO QDAY 11/20/17 12/25/17 Unknown History Metformin HCl 1 tab PO DAILY 11/20/17 12/25/17 Unknown History Zolpidem [Ambien] 10 mg PO QHS 11/20/17 12/25/17 Unknown History azaTHIOprine [Imuran] 50 mg PO QDAY #30 tablet 12/21/17 12/25/17 Unknown Rx predniSONE [Deltasone] 40 mg PO QDAY #60 tablet 12/21/17 12/25/17 Unknown Rx oxyCODONE /ACETAMINOPHEN [Percocet 1 tab PO BID PRN #14 tablet 12/28/17 Unknown Rx 5/325 mg] Active Meds: Active Medications Sodium Chloride (Nacl 0.9% 1000 Ml) 1,000 mls @ 100 mls/hr IV DIRECT KELLY Exam - Physical Exam Narrative exam: GEN: illappearing in NAD, AWAKE, ALERT, ORIENTATED x 3 HEENT: NCAT, EOMI, PERRL, OP Clear but dry NECK: supple, no adenopathy, no thyromegaly, no JVD CVS/HEART: regular tachy, NORMAL S1S2, pulses present bilaterally CHEST/LUNGS: CTA B, Symmetrical chest expansion, good air entry bilaterally GI/Abdomen: soft, prior surgurical scars noted, severe LLQ tendernsess, no bowel sounds lower quadrants, +guarding with mild rebound /Bladder: no suprapubic tenderness, no CVA or paraspinal tenderness EXT/Skin: no c/c/e, no obvious rash, capillary refill >2 seconds MSK: FROM x 4 Neuro: CN 2-12 grossly intact, no new focal deficits Psych: anxious due to pain - Constitutional Vitals: Temp Pulse Resp BP Pulse Ox 129 H 18 112/83 98 01/17/18 04:00 01/17/18 05:40 01/17/18 04:00 01/17/18 05:40 Results - Labs CBC & Chem 7: 01/17/18 04:41 01/17/18 04:41 Labs: Abnormal lab results 01/17/18 01/17/18 Range/Units 04:41 04:41 RBC 5.15 H (3.65-5.03) M/mm3 RDW 16.3 H (13.2-15.2) % [place] % (Auto) 13.0 H (0.0-7.3) % Lymph # 1.1 L (1.2-5.4) K/mm3 [place] # 1.0 H (0.0-0.8) K/mm3 Seg Neutrophils % 72.7 H (40.0-70.0) % Sodium 135 L (137-145) mmol/L Chloride 89.5 L (98-107) mmol/L Glucose 134 H (75-100) mg/dL Albumin 3.5 L (3.9-5) g/dL Assessment and Plan Patient is a 47 yo man with a history of type 2 DM, hypertension, tobacco dependancy, Crohn's disease followed by Dr. Mix and recurrent SBO, just discharge with it on 12/28/17 who presents with n/v/abd pains after c-scopy prep and found to have the following: CT abd/pelvis w/o contrast IMPRESSION: High- grade mechanical small bowel obstruction proximal to the ileocecal junction where there are diffuse inflammatory changes compatible history recurrent Crohn' s disease. No evidence of abscess formation or adenopathy. -SBO, recurrent, worse this time: Gen. surgery consulted, npo, ivf, iv narcotics for severe pains -SIRS with suspected early sepsis due to above, poa: Ordered lactate levels, blood cultures, IV fluids, started empiric IV Zosyn -Type 2 DM: npo, ssi q6hrs -Crohn's colitis with complications: GI consulted, hold Imuran due to sbo, change chronic oral steroids to iv steroids -Hypertension: prn iv labetalol, hold lisinopril -Abnormal EKG with st, pvc and LAFB: ordered remote tele, ce, troponin, repeat EKG, -Tobacco/marijuana: counseling done -DVT prophylaxis: sq heparin -GI prophylaxis: iv protonix CCT 35 minutes
[2018-01-17] MEDS ORDERED: REGLAN IV PRN (08:00)
[2018-01-17] MEDS ORDERED: D50W (25GM) Syringe IV PRN (08:00)
[2018-01-17] MEDS ORDERED: MORPHINE IV PRN (08:00)
[2018-01-17] MEDS: HumaLOG SUB-Q SCH ×3 (08:13→19:47)
--- NOTE | 2018-01-17 09:39 | Gastroenterology Consultation ---
History of Present Illness - Reason for Consult Consult date: 01/17/18 small bowel obstruction Requesting physician: JOSE GAMING - History of Present Illness Patient is a 47 y/o male with PMH of DM, HTN, tobacco dependency, and Crohn's disease (diagnosed in 1993 requiring partial resection and then had an enterocutaneous fistula and surgery in 2004 or 2005) who is well known to our service. He has had multiple recent hospitalizations with last discharge on due to exacerbation of Crohn's disease with a partial SBO 2/2 receiving inadequate care for the past several years from pt's non-compliance with follow up due to lack of insurance. He has been on prednisone and Imuran for the last couple of months while in the process of outpatient restaging work up for starting biologic therapy. He was actually scheduled for an outpatient colonoscopy today with Dr. Mix, however after drinking his colon prep last night, he developed severe abd pain, N/V with brownish emesis, and only had 1 BM with a scant amount of solid brown stool. Abd CT scan revealed a high grade mechanical small bowel obstruction proximal to the ileocecal junction where there is diffuse inflammation changes compatible with recurrent Crohn's disease. Surgery has been consulted. This morning pt was resting in bed in mild distress. He reports feeling miserable with continued RLQ pain rating a 8/10 and states "I want surgery". " I feel like I am deteriorating". No further episodes of N/V this am but reports 3 episodes since admission. No active signs of bleeding. Denies fever, CP, SOB, dysphagia, odynophagia, or diarrhea. Past History Past Medical History: diabetes, hypertension, other (Crohn's disease) Past Surgical History: bowel surgery Social history: smoking Family history: diabetes, hypertension Medications and Allergies Allergies Allergy/AdvReac Type Severity Reaction Status Date / Time No Known Allergies Allergy Unverified 11/20/17 10:31 Home Medications Medication Instructions Recorded Confirmed Last Taken Type Lisinopril [Zestril TAB] 10 mg PO QDAY 11/20/17 12/25/17 Unknown History Metformin HCl 1 tab PO DAILY 11/20/17 12/25/17 Unknown History Zolpidem [Ambien] 10 mg PO QHS 11/20/17 12/25/17 Unknown History azaTHIOprine [Imuran] 50 mg PO QDAY #30 tablet 12/21/17 12/25/17 Unknown Rx predniSONE [Deltasone] 40 mg PO QDAY #60 tablet 12/21/17 12/25/17 Unknown Rx oxyCODONE /ACETAMINOPHEN [Percocet 1 tab PO BID PRN #14 tablet 12/28/17 Unknown Rx 5/325 mg] Active Meds: Active Medications Dextrose (D50w (25gm) Syringe) 50 ml IV PRN PRN PRN Reason: Hypoglycemia Heparin Sodium (Porcine) (Heparin) 5,000 unit SUB-Q Q12HR KELLY Sodium Chloride (Nacl 0.9% 1000 Ml) 1,000 mls @ 100 mls/hr IV DIRECT KELLY Sodium Chloride (Nacl 0.9% 1000 Ml) 1,000 mls @ 100 mls/hr IV DIRECT KELLY Last Admin: 01/17/18 08:30 Dose: 100 mls/hr Piperacillin Sod/Tazobactam Sod (Zosyn/Ns 4.5gm/100ml) 4.5 gm in 100 mls @ 200 mls/hr IV Q8HR KELLY; Protocol Insulin Human Lispro (Humalog) 0 unit SUB-Q Q6HR KELLY; Protocol Last Admin: 01/17/18 08:13 Dose: Not Given Labetalol HCl (Normodyne) 10 mg IV Q4H PRN PRN Reason: Blood Pressure Methylprednisolone Sodium Succinate (Solu-Medrol) 20 mg IV Q24HR KELLY Metoclopramide HCl (Reglan) 10 mg IV Q8H PRN PRN Reason: Nausea And Vomiting Morphine Sulfate (Morphine) 2 mg IV Q4H PRN PRN Reason: Pain , Severe (7-10) Last Admin: 01/17/18 08:36 Dose: 2 mg Ondansetron HCl (Zofran) 4 mg IV Q4H PRN PRN Reason: N/V unrelieved by Reglan Pantoprazole Sodium (Protonix) 40 mg IV QDAY [facility] Review of Systems - Review of Systems All systems: negative Gastrointestinal: abdominal pain, nausea, vomiting Exam - Constitutional Vital Signs: Temp Pulse Resp BP Pulse Ox 97.7 F 112 H 20 107/74 97 01/17/18 08:50 01/17/18 08:50 01/17/18 08:50 01/17/18 08:50 01/17/18 08:50 General appearance: mild distress - EENT Eyes: PERRL, EOM intact ENT: hearing intact - Respiratory Respiratory: bilateral: CTA - Cardiovascular Rhythm: other (tachycardia) Heart Sounds: Present: S1 & S2 - Gastrointestinal General gastrointestinal: Present: soft, tender (generalized TTP with worsening in RLQ), non-distended, normal bowel sounds, other (scars from prior surgeries) - Integumentary Integumentary: Present: warm, dry - Neurologic Neurological: alert and oriented x3 - Labs CBC & Chem 7: 01/17/18 04:41 01/17/18 04:41 Lab Results: Laboratory Results - last 24 hr 01/17/18 01/17/18 01/17/18 04:41 04:41 08:09 WBC 7.7 RBC 5.15 H Hgb 14.7 Hct 44.9 MCV 87 MCH 28 MCHC 33 RDW 16.3 H Plt Count 406 Lymph % (Auto) 13.7 [place] % (Auto) 13.0 H Eos % (Auto) 0.3 Baso % (Auto) 0.3 Lymph # 1.1 L [place] # 1.0 H Eos # 0.0 Baso # 0.0 Seg Neutrophils % 72.7 H Seg Neutrophils # 5.6 Sodium 135 L Potassium 3.8 Chloride 89.5 L Carbon Dioxide 28 Anion Gap 21 BUN 17 Creatinine 1.1 Estimated GFR > 60 BUN/Creatinine Ratio 15 Glucose 134 H Lactic Acid 1.60 Calcium 9.7 Total Bilirubin 0.50 AST 12 ALT 10 Alkaline Phosphatase 85 Total Protein 6.8 Albumin 3.5 L Albumin/Globulin Ratio 1.1 Assessment and Plan 1.small bowel obstruction 2.Crohn's disease -afebrile -WBC-WNL -Abd CT scan revealed a high grade mechanical small bowel obstruction proximal to the ileocecal junction where there is diffuse inflammation changes compatible with recurrent Crohn's disease -etiology-worsening of SBO 2/2 Crohn's disease -surgery consult pending -continue IV steroids and supportive care at this time -further recommendations to follow pending surgery recommendations
[2018-01-17] MEDS ORDERED: LOVENOX SUB-Q SCH (10:00)
[2018-01-17] MEDS ORDERED: DILAUDID IV NR (10:17)
[2018-01-17] MEDS ORDERED: NORMODYNE IV PRN (10:30)
[2018-01-17] MEDS: ZOSYN/NS 4.5GM/100ML 4.5 GM/100 ML VIAL IV SCH ×2 (10:58→17:48)
[2018-01-17] MEDS: PROTONIX IV SCH (10:59)
[2018-01-17] MEDS ORDERED: NACL 0.9% 1000 ML 1,000 ML ONE (12:48)
[2018-01-17] MEDS ORDERED: FLAGYL 500 MG/100 ML 500 MG/100 ML BAG IV ONE (13:10)
[2018-01-17] MEDS ORDERED: ANCEF/STERILE WATER 2 GM/20 ML 2 GM/20 ML SYRINGE IV ONE (13:10)
[2018-01-17] MEDS ORDERED: DIPRIVAN 10 MG/ML IV ONE (13:17)
[2018-01-17] MEDS ORDERED: SUBLIMAZE ONE (13:17)
[2018-01-17] MEDS ORDERED: XYLOCAINE MPF 2% ONE (13:42)
[2018-01-17] MEDS ORDERED: ZEMURON IV ONE ×2 (13:42→15:53)
[2018-01-17] MEDS ORDERED: NACL 0.9% IR ONE (14:47)
[2018-01-17] MEDS ORDERED: ANCEF/STERILE WATER 2 GM/20 ML IV NR (14:58)
[2018-01-17] MEDS ORDERED: FLAGYL 500 MG/100 ML 500 MG/100 ML BAG IV NR (15:30)
[2018-01-17] MEDS ORDERED: NACL 0.9% 100 ML ONE (15:53)
[2018-01-17] MEDS ORDERED: NEO SYNEPHRINE ONE ×2 (15:53→17:49)
[2018-01-17] MEDS ORDERED: QUELICIN ONE (17:00)
[2018-01-17] MEDS ORDERED: DILAUDID ONE ×2 (17:51→18:29)
[2018-01-17] MEDS ORDERED: ZOFRAN ONE (18:27)
--- NOTE | 2018-01-17 18:54 | Consultation ---
History of Present Illness Consult date: 01/17/18 Chief complaint: abd pain - History of present illness History of present illness: Late entry: [facility] down all morning 47 yo M with known hx of Crohns Disease presents for abd pain, n/v x 1 day. The patient was scheduled for colonoscopy today and drank his prep yesterday. After this he started experiencing crampy abdominal pain in the RLQ, nausea, and multiple episodes of nonbloody/nonbilious emesis. His pain does not radiate and nothing makes it better. He denies f/c, cp, sob. He is on prednisone for his Crohns disease. He has been to the hospital several times with exacerbation of Crohns with pSBO. This time, he has not had any bowel movements or flatus. Past History Past Medical History: diabetes, hypertension, other (Crohn's disease) Past Surgical History: bowel surgery Social history: smoking Family history: diabetes, hypertension Medications and Allergies Allergies Allergy/AdvReac Type Severity Reaction Status Date / Time No Known Allergies Allergy Unverified 11/20/17 10:31 Home Medications Medication Instructions Recorded Confirmed Last Taken Type Lisinopril [Zestril TAB] 10 mg PO QDAY 11/20/17 12/25/17 Unknown History Metformin HCl 1 tab PO DAILY 11/20/17 12/25/17 Unknown History Zolpidem [Ambien] 10 mg PO QHS 11/20/17 12/25/17 Unknown History azaTHIOprine [Imuran] 50 mg PO QDAY #30 tablet 12/21/17 12/25/17 Unknown Rx predniSONE [Deltasone] 40 mg PO QDAY #60 tablet 12/21/17 12/25/17 Unknown Rx oxyCODONE /ACETAMINOPHEN [Percocet 1 tab PO BID PRN #14 tablet 12/28/17 Unknown Rx 5/325 mg] Active Meds: Active Medications Cefazolin Sodium (Ancef/Sterile Water 2 Gm/20 Ml) 2 gm IV PREOP NR Stop: 01/17/18 23:59 Dextrose (D50w (25gm) Syringe) 50 ml IV PRN PRN PRN Reason: Hypoglycemia Heparin Sodium (Porcine) (Heparin) 5,000 unit SUB-Q Q12HR KELLY Sodium Chloride (Nacl 0.9% 1000 Ml) 1,000 mls @ 100 mls/hr IV DIRECT KELLY Sodium Chloride (Nacl 0.9% 1000 Ml) 1,000 mls @ 100 mls/hr IV DIRECT KELLY Last Admin: 01/17/18 08:30 Dose: 100 mls/hr Piperacillin Sod/Tazobactam Sod (Zosyn/Ns 4.5gm/100ml) 4.5 gm in 100 mls @ 200 mls/hr IV Q8HR [facility]; Protocol Last Admin: 01/17/18 17:48 Dose: Not Given Insulin Human Lispro (Humalog) 0 unit SUB-Q Q6HR [facility]; Protocol Last Admin: 01/17/18 17:47 Dose: Not Given Labetalol HCl (Normodyne) 10 mg IV Q4H PRN PRN Reason: Blood Pressure Methylprednisolone Sodium Succinate (Solu-Medrol) 20 mg IV Q24HR [facility] Last Admin: 01/17/18 10:59 Dose: 20 mg Metoclopramide HCl (Reglan) 10 mg IV Q8H PRN PRN Reason: Nausea And Vomiting Morphine Sulfate (Morphine) 2 mg IV Q4H PRN PRN Reason: Pain , Severe (7-10) Last Admin: 01/17/18 08:36 Dose: 2 mg Ondansetron HCl (Zofran) 4 mg IV Q4H PRN PRN Reason: N/V unrelieved by Reglan Pantoprazole Sodium (Protonix) 40 mg IV QDAY [facility] Last Admin: 01/17/18 10:59 Dose: 40 mg Review of Systems All systems: negative (10 point ROS performed and negative except for above) Exam Vital Signs Pulse Resp 143 H 15 01/17/18 03:37 01/17/18 03:37 Narrative exam: Gen: AAOx3. NAD ENT: no scleral icterus or conjunctival pallor CV: s1, S2+ Resp: even and unlabored Abd: soft, ND, +TTP in RLQ with +rebound, +guarding, no rigidity. Hypoactive bowel sounds Ext; no c/c/e Results - Labs 01/17/18 04:41 01/17/18 04:41 Abnormal lab results 01/17/18 01/17/18 Range/Units 04:41 04:41 RBC 5.15 H (3.65-5.03) M/mm3 RDW 16.3 H (13.2-15.2) % [place] % (Auto) 13.0 H (0.0-7.3) % Lymph # 1.1 L (1.2-5.4) K/mm3 [place] # 1.0 H (0.0-0.8) K/mm3 Seg Neutrophils % 72.7 H (40.0-70.0) % Sodium 135 L (137-145) mmol/L Chloride 89.5 L (98-107) mmol/L Glucose 134 H (75-100) mg/dL Albumin 3.5 L (3.9-5) g/dL Diabetes panel 01/17/18 Range/Units 04:41 Sodium 135 L (137-145) mmol/L Potassium 3.8 (3.6-5.0) mmol/L Chloride 89.5 L (98-107) mmol/L Carbon Dioxide 28 (22-30) mmol/L BUN 17 (9-20) mg/dL Creatinine 1.1 (0.8-1.5) mg/dL Glucose 134 H (75-100) mg/dL Calcium 9.7 (8.4-10.2) mg/dL AST 12 (5-40) units/L ALT 10 (7-56) units/L Alkaline Phosphatase 85 (35-129) units/L Total Protein 6.8 (6.3-8.2) g/dL Albumin 3.5 L (3.9-5) g/dL Calcium panel 01/17/18 Range/Units 04:41 Calcium 9.7 (8.4-10.2) mg/dL Albumin 3.5 L (3.9-5) g/dL Pituitary panel 01/17/18 Range/Units 04:41 Sodium 135 L (137-145) mmol/L Potassium 3.8 (3.6-5.0) mmol/L Chloride 89.5 L (98-107) mmol/L Carbon Dioxide 28 (22-30) mmol/L BUN 17 (9-20) mg/dL Creatinine 1.1 (0.8-1.5) mg/dL Glucose 134 H (75-100) mg/dL Calcium 9.7 (8.4-10.2) mg/dL Adrenal panel 01/17/18 Range/Units 04:41 Sodium 135 L (137-145) mmol/L Potassium 3.8 (3.6-5.0) mmol/L Chloride 89.5 L (98-107) mmol/L Carbon Dioxide 28 (22-30) mmol/L BUN 17 (9-20) mg/dL Creatinine 1.1 (0.8-1.5) mg/dL Glucose 134 H (75-100) mg/dL Calcium 9.7 (8.4-10.2) mg/dL Total Bilirubin 0.50 (0.1-1.2) mg/dL AST 12 (5-40) units/L ALT 10 (7-56) units/L Alkaline Phosphatase 85 (35-129) units/L Total Protein 6.8 (6.3-8.2) g/dL Albumin 3.5 L (3.9-5) g/dL - Imaging CT scan - abdomen: report reviewed CT scan - pelvis: report reviewed, image reviewed Assessment and Plan 47 yo M with high grade SBO secondary to Crohns disease Plan: 1. NGT 16F placed in R nare with 100 cc of brown output - continue to LCWS 2. IVF 3. NPO 4. Pain and nausea control PRN 5. DVT and GI ppx 6. OOB/ambulate 7. dc zosyn 8. I have discussed the case with Dr. Espana. The patient will need surgical intervention at this time because he has a complete bowel obstruction at the ileocecal junction. Likely secondary to Crohns inflammation resulting in stricture. We will proceed with OR today. 9. I have discussed all risks and benefits, alternatives to surgical intervention. The patient was consented for an exploratory laparotomy, lysis of adhesions, cholecystectomy, possible bowel resection, possible colostomy. I have answered all questions and he understands. I discussed the plan with Dr. Fulton. Thank you For this consultation, please call with any questions or concerns.
[2018-01-17] MEDS ORDERED: NEOSTIGMINE ONE (18:55)
[2018-01-17] MEDS ORDERED: ROBINUL ONE (18:55)
--- NOTE | 2018-01-17 18:59 | Post Operative Note ---
Pre-op diagnosis: high-grade small bowel obstruction, Crohn's disease Post-op diagnosis: same Findings: Dense scarring and stricturing at the ileocecal junction. The ileocecal junction was densely adherent to the retroperitoneum and lateral abdominal wall. Severely dilated small bowel proximal to this consistent with high-grade small bowel obstruction. Entire colon was decompressed. Procedure: Exploratory laparotomy, lysis of adhesions, ileocecectomy with primary anastomosis Anesthesia: JT Surgeon: MICHAEL BOLAÑOS Veneer Drier: FELICITAS BLAND Estimated blood loss: 50-100ml Pathology: list (terminal ileum and cecum, portion of small intestine) Specimen disposition: to lab Condition: stable Disposition: PACU
[2018-01-17] MEDS ORDERED: NARCAN 0.4 MG/1 ML IV PRN (19:05)
[2018-01-17] MEDS: MORPHINE PCA 30MG/30ML IV SCH (19:15)
--- NOTE | 2018-01-17 19:26 | Post Anesthesia Evaluation ---
- Post Anesthesia Evaluation Patient Participated: Yes Airway Patent: Yes Stable Respiratory Function: Yes Nausea/Vomiting: No Temp > 96.8F: Yes Pain Manageable: Yes Adequeate Hydration: Yes Anesthesia Complications: No
--- NOTE | 2018-01-17 19:27 | Anesthesia Consultation ---
Anesthesia Consult and Med Hx Date of service: 01/17/18 - Airway Anesthetic Teeth Evaluation: Good ROM Head & Neck: Adequate Mental/Hyoid Distance: Adequate Mallampati Class: Class I Intubation Access Assessment: Good - Pulmonary Exam CTA: Yes - Cardiac Exam Cardiac Exam: RRR - Pre-Operative Health Status ASA Pre-Surgery Classification: ASA2, ASA3 Proposed Anesthetic Plan: General - Pulmonary Hx Smoking: Yes COPD: No - Cardiovascular System Hx Hypertension: Yes - Central Nervous System Hx Psychiatric Problems: No - Other Systems Hx Cancer: No
--- NOTE | 2018-01-17 19:28 | Anesthesia Day of Surgery ---
Anesthesia Day of Surgery - Day of Surgery Patient Examined: Yes Patient H&P Reviewed: Yes Patient is NPO: Yes
[2018-01-17 21:46] LABS: Creatine Kinase MB 5.2 ng/mL (0.0-4.0)
[2018-01-17] MEDS ORDERED: ceFAZolin 2 GM in NACL 0.9% 100 ML IV SCH (22:00)
[2018-01-17] MEDS: FLAGYL 500 MG/100 ML 500 MG/100 ML BAG IV SCH (22:59)
[2018-01-17] MEDS: HEPARIN SUB-Q SCH (23:00)
[2018-01-17] MEDS: ceFAZolin 2 GM in NACL 0.9% 20 ML IV SCH (23:23)
[2018-01-17] MEDS ORDERED: NACL 0.9% 1,000 ML IR ONE (23:28)
[2018-01-17] MEDS ORDERED: NACL 0.9% IR PRN (23:33)
[2018-01-18] MEDS: NACL 0.9% 1000 ML 1,000 ML IV SCH ×2 (00:07→10:52)
[2018-01-18 00:38] LABS: Bilirubin,Urine NEG (Negative); Blood,Urine NEG (Negative); Color,Urine Amber (Yellow); Hyaline Casts,Urine 12 /LPF; Mucus,Urine FEW /HPF; Protein,Urine <15 mg/dL mg/dL (Negative)
[2018-01-18] MEDS: MORPHINE PCA 30MG/30ML IV SCH (03:45)
[2018-01-18] MEDS: HumaLOG SUB-Q SCH ×4 (03:52→19:34)
[2018-01-18 05:25] LABS: Hematocrit 34.1 % (35.5-45.6); Hemoglobin 11.1 gm/dl (11.8-15.2); Mean Corpuscular HGB Conc 32 % (32-34); Mean Corpuscular Hemoglobin 29 pg (28-32); Mean Corpuscular Volume 89 fl (84-94); Platelet Count 288 K/mm3 (140-440); Red Blood Count 3.85 M/mm3 (3.65-5.03); Red Cell Distribution Width 16.5 % (13.2-15.2)
[2018-01-18] MEDS: HEPARIN SUB-Q SCH (05:34)
[2018-01-18] MEDS: FLAGYL 500 MG/100 ML 500 MG/100 ML BAG IV SCH (05:35)
[2018-01-18 05:45] LABS: Calcium 7.1 mg/dL (8.4-10.2)
[2018-01-18] MEDS: ceFAZolin 2 GM in NACL 0.9% 20 ML IV SCH (05:48)
[2018-01-18] MEDS ORDERED: NACL 0.9% 1000 ML 1,000 ML IV ONE (09:00)
--- NOTE | 2018-01-18 09:58 | Gastroenterology Progress Note ---
Assessment and Plan 1.small bowel obstruction 2.Crohn's disease -afebrile -WBC-WNL -Abd CT scan revealed a high grade mechanical small bowel obstruction proximal to the ileocecal junction where there is diffuse inflammation changes compatible with recurrent Crohn's disease -etiology-worsening of SBO 2/2 Crohn's disease -s/p exploratory laparotomy yesterday with lysis of adhesions and ileocecectomy -clinically pt's abd pain from SBO is now improved with only mild soreness remaining from surgery and no N/V -continue supportive care -will defer to surgery for further management -pt will need to f/u in clinic after discharged for management of Crohn's disease -will sign off, please call if needed Subjective Date of service: 01/18/18 Principal diagnosis: Small bowel obstruction Interval history: Patient resting in bed this am w/o acute distress. Reports mild abdominal soreness from surgery yesterday but states abd pain is improved from previously. No N/V. NG with bilious drainage. Objective - Constitutional Vitals: Temp Pulse Resp BP Pulse Ox 97.5 F L 113 H 20 77/50 94 01/18/18 04:59 01/18/18 04:59 01/18/18 04:59 01/18/18 04:59 01/18/18 04:59 General appearance: no acute distress - EENT Eyes: PERRL, EOM intact ENT: hearing intact, other (+NG with bilious drainage) - Respiratory Respiratory: bilateral: CTA - Cardiovascular Rhythm: other (tachycardia) Heart Sounds: Present: S1 & S2 - Gastrointestinal General gastrointestinal: Present: soft, tender (mild generalized TTP), non- distended, hypoactive bowel sounds, other (+surgical dressing C/D/I) - Integumentary Integumentary: Present: warm, dry - Neurologic Neurological: alert and oriented x3 - Labs CBC & Chem 7: 01/18/18 04:54 01/18/18 04:54 Labs: Laboratory Results - last 24 hr 01/17/18 01/18/18 01/18/18 21:14 00:02 04:54 WBC 10.3 RBC 3.85 Hgb 11.1 L D Hct 34.1 L D MCV 89 MCH 29 MCHC 32 RDW 16.5 H Plt Count 288 Sodium Potassium Chloride Carbon Dioxide Anion Gap BUN Creatinine Estimated GFR BUN/Creatinine Ratio Glucose Calcium Total Creatine Kinase 40 L CK-MB (CK-2) 5.2 H CK-MB (CK-2) Rel Index 13.0 H Troponin T < 0.010 Lipase Urine Color [place] Urine Turbidity Clear Urine pH 5.0 Ur Specific [place] 1.021 Urine Protein <15 mg/dl Urine Glucose (UA) Neg Urine Ketones Tr Urine Blood Neg Urine Nitrite Neg Urine Bilirubin Neg Urine Urobilinogen 4.0 Ur Leukocyte Esterase Tr Urine WBC (Auto) 19.0 H Urine RBC (Auto) 7.0 U Epithel Cells (Auto) < 1.0 Hyaline Casts 12 Urine Mucus Few 01/18/18 04:54 WBC RBC Hgb Hct MCV MCH MCHC RDW Plt Count Sodium 141 Potassium 5.0 D Chloride 105.9 Carbon Dioxide 21 L D Anion Gap 19 BUN 25 H Creatinine 1.5 Estimated GFR 50 BUN/Creatinine Ratio 17 Glucose 165 H Calcium 7.1 L D Total Creatine Kinase CK-MB (CK-2) CK-MB (CK-2) Rel Index Troponin T Lipase 9 L Urine Color Urine Turbidity Urine pH Ur Specific [place] Urine Protein Urine Glucose (UA) Urine Ketones Urine Blood Urine Nitrite Urine Bilirubin Urine Urobilinogen Ur Leukocyte Esterase Urine WBC (Auto) Urine RBC (Auto) U Epithel Cells (Auto) Hyaline Casts Urine Mucus
[2018-01-18] MEDS ORDERED: HEPARIN SUB-Q SCH (10:30)
[2018-01-18] MEDS: PROTONIX IV SCH (10:46)
--- NOTE | 2018-01-18 10:53 | Progress Note ---
Assessment and Plan 47 yo M s/p Exploratory laparotomy, lysis of adhesions, ileocecectomy with primary anastomosis, POD 1 1. Crohns disease 2. High grade small bowel obstruction secondary to Crohn's stricture Plan: 1. NPO 2. IVF, will give a 1L bolus of NS for low BP. Will monitor 3. NGT to LCWS 4. void trial, parker removed this am 5. Pain control - CATERPILLAR TRACTOR OPERATOR 6. strict I/Os 7. DVT and GI ppx 8. repeat CBC, BMP in am 9. OOB today to chair 10. Incentive spirometry encouraged/pulmonary toilet Subjective Date of service: 01/18/18 Narrative: Patient seen and examined at bedside. No overnight events. His pain is well controlled with a CATERPILLAR TRACTOR OPERATOR. He complains of dry mouth. No fevers, chills, chest pain, shortness of breath. No flatus or bowel movement. Objective Vital Signs - 12hr 01/17/18 01/17/18 01/17/18 23:43 23:44 23:52 Temperature Pulse Rate 120 H 120 H Respiratory 20 Rate Blood Pressure 80/56 O2 Sat by Pulse 96 95 96 Oximetry 01/18/18 04:59 Temperature 97.5 F L Pulse Rate 113 H Respiratory 20 Rate Blood Pressure 77/50 O2 Sat by Pulse 94 Oximetry - General physical appearance Narrative Exam: Gen: AAOx3. NAD ENT: No scleral icterus or conjunctival pallor. NG tube in place with thick brown drainage CV: S1, S2 present Respiratory: Even and unlabored Abdomen: Soft, non-distended, mild carrie-incisional tenderness. No rebound, rigidity, guarding. Dressing is clean dry and intact Extremities: No clubbing, cyanosis, edema Output: Uo: 900cc/24 hr NGT - not recorded - Labs 01/18/18 04:54 01/18/18 04:54 Diabetes panel 01/18/18 Range/Units 04:54 Sodium 141 (137-145) mmol/L Potassium 5.0 D (3.6-5.0) mmol/L Chloride 105.9 (98-107) mmol/L Carbon Dioxide 21 L D (22-30) mmol/L BUN 25 H (9-20) mg/dL Creatinine 1.5 (0.8-1.5) mg/dL Glucose 165 H (75-100) mg/dL Calcium 7.1 L D (8.4-10.2) mg/dL Calcium panel 01/18/18 Range/Units 04:54 Calcium 7.1 L D (8.4-10.2) mg/dL Pituitary panel 01/18/18 Range/Units 04:54 Sodium 141 (137-145) mmol/L Potassium 5.0 D (3.6-5.0) mmol/L Chloride 105.9 (98-107) mmol/L Carbon Dioxide 21 L D (22-30) mmol/L BUN 25 H (9-20) mg/dL Creatinine 1.5 (0.8-1.5) mg/dL Glucose 165 H (75-100) mg/dL Calcium 7.1 L D (8.4-10.2) mg/dL Adrenal panel 01/18/18 Range/Units 04:54 Sodium 141 (137-145) mmol/L Potassium 5.0 D (3.6-5.0) mmol/L Chloride 105.9 (98-107) mmol/L Carbon Dioxide 21 L D (22-30) mmol/L BUN 25 H (9-20) mg/dL Creatinine 1.5 (0.8-1.5) mg/dL Glucose 165 H (75-100) mg/dL Calcium 7.1 L D (8.4-10.2) mg/dL
--- NOTE | 2018-01-18 10:56 | Operative Report ---
Operative Report Operative Report: Pre-op diagnosis: high-grade small bowel obstruction, Crohn's disease Post-op diagnosis: same Findings: Dense scarring and stricturing at the ileocecal junction. The ileocecal junction was densely adherent to the retroperitoneum and lateral abdominal wall. Severely dilated small bowel proximal to this consistent with high-grade small bowel obstruction. Entire colon was decompressed. Procedure: Exploratory laparotomy, lysis of adhesions, ileocecectomy with primary anastomosis Anesthesia: JT Surgeon: MICHAEL BOLAÑOS Administrative Judge: FELICITAS BLAND Estimated blood loss: 50-100ml Pathology: list (terminal ileum and cecum, portion of small intestine) Specimen disposition: to lab Condition: stable Disposition: PACU HPI an indication: Patient to 47-year-old male with past medical history of Crohn's disease. He has a long history of noncompliance and recently restarted treatment with steroids. The patient has presented to the hospital multiple times for partial small bowel obstruction and has been managed conservatively. The patient was supposed to have a colonoscopy with Dr. Mix and after drinking his prep had severe abdominal pain, nausea and vomiting. In the emergency room, a CT scan was performed and he was found to have a high-grade small bowel obstruction at the ileocecal junction. Surgery was discussed with the patient, as well as alternatives. Because this was a complete obstruction, surgery was recommended. All risks, benefits of surgery were discussed and the patient was consented for an exploratory laparotomy, ileocecectomy, possible ostomy. Procedure in detail: The patient was identified in the preoperative area, taken back to the operating room and placed on the operating room table in supine position. After anesthesia was induced, Oropeza catheter was sterilely placed by the circulating nurse. The abdomen was prepped and draped in usual sterile fashion a timeout was performed. An infraumbilical midline incision was made using a 10 blade. Dissection was carried down through skin and subcutaneous tissue using Bovie electrocautery. One fascia was encountered it was grasped with 2 Kochers and tented upwards and incised with electrocautery. The peritoneum was identified and tented upwards with 2 hemostats and entered sharply with Metzenbaum scissors. We immediately encountered very dilated small bowel. The skin incision was extended from below the umbilicus to the xiphoid using the 10 blade and dissection carried down through the skin and subcutaneous tissue using electrocautery. The fascia was opened using electrocautery over 2 gloved fingers in order to complete the incision. There were adhesions from the small bowel to the anterior abdominal wall as well as interloop adhesions. These were taken down with a combination of blunt and sharp dissection. During the lysis of adhesions, a small, unavoidable, serosal tear was seen involving the small bowel. There was no spillage and this was repaired with 3-0 silk interrupted Lembert stitches. The point of obstruction was identified as the ileocecal junction which was hard and densely scarred to the lateral abdominal wall and retroperitoneum. The lumen of the bowel here was obliterated secondary to stricturing, causing a complete obstruction. The small bowel proximal to the obstruction was dilated up to approximately 6 cm. The entire colon was decompressed. A window was made in the mesentery of the terminal ileum approximately 5 cm from the ileocecal junction and the small bowel was transected between 2 bowel clamps using a 10 blade. The lumen of the distal ileum was whipstitched closed with 3-0 silk running suture. The proximal small bowel was decompressed using suction. The small bowel was then packed into the left abdomen in order to gain access to the densely adhesed terminal ileum and cecum. We carefully dissected the terminal ileum and cecum from the abdominal wall and retroperitoneum using a combination of sharp dissection and Bovie electrocautery. This was undertaken very meticulously in order to avoid injury to any nearby structures. The entire lysis of adhesions took greater than 3 hours. Once freed, the mesentery of the terminal ileum and cecum was ligated using the Enseal. A window was then made in the mesentery distal to the cecum, and the cecum was transected using a BALJINDER 75 mm blue load stapler. The remaining mesentery was ligated using the Enseal. The specimen was passed off the table. We then irrigated the abdomen with a copious amount of warm saline and established hemostasis. A [id number], antiperistaltic, functional end to end anastomosis was then created. The antimesenteric border of the small bowel and ascending colon were aligned and approximated using 3-0 silk interrupted seromuscular sutures. A enterotomy and colotomy were made with electrocautery and a side to side anastomosis was created using a BALJINDER 75 mm blue load stapler. The anastomosis was inspected and there was no bleeding seen. The common enterotomy was closed in 2 layers using 2-0 Vicryl full-thickness running sutures for the first layer and 3-0 silk interrupted Lembert seromuscular sutures for the second layer. The common channel was palpated and was wide open. The small bowel was placed in anatomic position. The abdomen was copiously irrigated with warm saline solution and hemostasis once again ensured. The omentum was laid over our anastomosis and small bowel. A inspection of the abdomen did not reveal any retained foreign objects. The fascia was then closed using running looped PDS suture x2. The patient's old upper midline scar was excised. The subcutaneous tissue was irrigated and skin closed loosely with skin sola. 1 inch iodoform packing was packed in between the sola. The incision was covered with 4 x 4 gauze, ABDs pads, and Medipore tape. At the end of the case, all sponge, instrument, sharp counts were correct 2. The patient was awoken from anesthesia, extubated and taken to PACU in stable condition. His family was updated at the end of the case.
[2018-01-18 14:58] LABS: Hematocrit 32.7 % (35.5-45.6); Hemoglobin 10.5 gm/dl (11.8-15.2)
[2018-01-18] MEDS ORDERED: NACL 0.9% 500 ML 500 ML IV ONE (16:00)
--- NOTE | 2018-01-18 16:07 | Progress Note ---
Assessment and Plan Assessment and plan: Patient is a 47 yo man with a history of type 2 DM, hypertension, tobacco dependancy, Crohn's disease followed by Dr. Mix and recurrent SBO, just discharge with it on 12/28/17 who presents with n/v/abd pains after c-scopy prep and found to have the following: CT abd/pelvis w/o contrast IMPRESSION: High- grade mechanical small bowel obstruction proximal to the ileocecal junction where there are diffuse inflammatory changes compatible history recurrent Crohn' s disease. No evidence of abscess formation or adenopathy. -SBO, recurrent, worse this time s/p Exploratomy laparotomy, lysis of adhesions , ileocecectomy with primary anastomosis by Dr. 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 Gordon repeat h/h, slight drop, stopped sq heparin CCT 32 minutes History Interval history: Patient was seen and examined. Follow-up on current diagnosis. Overnight blood pressure low LAY OUT TECHNICIAN. Imaging, nursing note, chart, labs and old chart reviewed. Discussed with patient. Hospitalist Physical - Physical exam Narrative exam: GEN: illappearing in NAD, AWAKE, ALERT, ORIENTATED x 3 HEENT: NCAT, EOMI, PERRL, OP Clear but dry NECK: supple, no adenopathy, no thyromegaly, no JVD CVS/HEART: regular tachy, NORMAL S1S2, pulses present bilaterally CHEST/LUNGS: CTA B, Symmetrical chest expansion, good air entry bilaterally GI/Abdomen: soft, large midline surgical incision excision with surgical dressing intact /Bladder: no suprapubic tenderness, no CVA or paraspinal tenderness EXT/Skin: no c/c/e, no obvious rash, capillary refill >2 seconds MSK: FROM x 4 Neuro: CN 2-12 grossly intact, no new focal deficits Psych: Calm - Constitutional Vitals: Temp Pulse Resp BP Pulse Ox 98.7 F 102 H 20 78/51 97 01/18/18 13:05 01/18/18 13:05 01/18/18 13:05 01/18/18 13:00 01/18/18 13:05 Results - Labs CBC & Chem 7: 01/18/18 14:20 01/18/18 04:54 Labs: Laboratory Last Values WBC 10.3 K/mm3 (4.5-11.0) 01/18/18 04:54 RBC 3.85 M/mm3 (3.65-5.03) 01/18/18 04:54 Hgb 10.5 gm/dl (11.8-15.2) L 01/18/18 14:20 Hct 32.7 % (35.5-45.6) L 01/18/18 14:20 MCV 89 fl (84-94) 01/18/18 04:54 MCH 29 pg (28-32) 01/18/18 04:54 MCHC 32 % (32-34) 01/18/18 04:54 RDW 16.5 % (13.2-15.2) H 01/18/18 04:54 Plt Count 288 K/mm3 (140-440) 01/18/18 04:54 Lymph % (Auto) 13.7 % (13.4-35.0) 01/17/18 04:41 [place] % (Auto) 13.0 % (0.0-7.3) H 01/17/18 04:41 Eos % (Auto) 0.3 % (0.0-4.3) 01/17/18 04:41 Baso % (Auto) 0.3 % (0.0-1.8) 01/17/18 04:41 Lymph # 1.1 K/mm3 (1.2-5.4) L 01/17/18 04:41 [place] # 1.0 K/mm3 (0.0-0.8) H 01/17/18 04:41 Eos # 0.0 K/mm3 (0.0-0.4) 01/17/18 04:41 Baso # 0.0 K/mm3 (0.0-0.1) 01/17/18 04:41 Seg Neutrophils % 72.7 % (40.0-70.0) H 01/17/18 04:41 Seg Neutrophils # 5.6 K/mm3 (1.8-7.7) 01/17/18 04:41 Sodium 141 mmol/L (137-145) 01/18/18 04:54 Potassium 5.0 mmol/L (3.6-5.0) D 01/18/18 04:54 Chloride 105.9 mmol/L (98-107) 01/18/18 04:54 Carbon Dioxide 21 mmol/L (22-30) L D 01/18/18 04:54 Anion Gap 19 mmol/L 01/18/18 04:54 BUN 25 mg/dL (9-20) H 01/18/18 04:54 Creatinine 1.5 mg/dL (0.8-1.5) 01/18/18 04:54 Estimated GFR 50 ml/min 01/18/18 04:54 BUN/Creatinine Ratio 17 % 01/18/18 04:54 Glucose 165 mg/dL (75-100) H 01/18/18 04:54 POC Glucose 126 (70-105) H 01/18/18 13:16 Lactic Acid 1.60 mmol/L (0.7-2.0) 01/17/18 08:09 Calcium 7.1 mg/dL (8.4-10.2) L D 01/18/18 04:54 Total Bilirubin 0.50 mg/dL (0.1-1.2) 01/17/18 04:41 AST 12 units/L (5-40) 01/17/18 04:41 ALT 10 units/L (7-56) 01/17/18 04:41 Alkaline Phosphatase 85 units/L (35-129) 01/17/18 04:41 Total Creatine Kinase 40 units/L (55-170) L 01/17/18 21:14 CK-MB (CK-2) 5.2 ng/mL (0.0-4.0) H 01/17/18 21:14 CK-MB (CK-2) Rel Index 13.0 (0-4) H 01/17/18 21:14 Troponin T < 0.010 ng/mL (0.00-0.029) 01/17/18 21:14 Total Protein 6.8 g/dL (6.3-8.2) 01/17/18 04:41 Albumin 3.5 g/dL (3.9-5) L 01/17/18 04:41 Albumin/Globulin Ratio 1.1 % 01/17/18 04:41 Lipase 9 units/L (13-60) L 01/18/18 04:54 Urine Color [place] (Yellow) 01/18/18 00:02 Urine Turbidity Clear (Clear) 01/18/18 00:02 Urine pH 5.0 (5.0-7.0) 01/18/18 00:02 Ur Specific [place] 1.021 (1.003-1.030) 01/18/18 00:02 Urine Protein <15 mg/dl mg/dL (Negative) 01/18/18 00:02 Urine Glucose (UA) Neg mg/dL (Negative) 01/18/18 00:02 Urine Ketones Tr mg/dL (Negative) 01/18/18 00:02 Urine Blood Neg (Negative) 01/18/18 00:02 Urine Nitrite Neg (Negative) 01/18/18 00:02 Urine Bilirubin Neg (Negative) 01/18/18 00:02 Urine Urobilinogen 4.0 mg/dL (<2.0) 01/18/18 00:02 Ur Leukocyte Esterase Tr (Negative) 01/18/18 00:02 Urine WBC (Auto) 19.0 /HPF (0.0-6.0) H 01/18/18 00:02 Urine RBC (Auto) 7.0 /HPF (0.0-6.0) 01/18/18 00:02 U Epithel Cells (Auto) < 1.0 /HPF (0-13.0) 01/18/18 00:02 Hyaline Casts 12 /LPF 01/18/18 00:02 Urine Mucus Few /HPF 01/18/18 00:02
[2018-01-18] MEDS ORDERED: DILAUDID IV PRN (16:15)
[2018-01-18] MEDS ORDERED: NARCAN 0.4 MG/1 ML IV PRN (16:16)
[2018-01-18] MEDS ORDERED: REGLAN IV PRN (16:35)
[2018-01-18] MEDS: DILAUDID IV PRN ×2 (18:15→22:33)
[2018-01-19] MEDS: DILAUDID IV PRN ×5 (02:29→20:12)
[2018-01-19 04:38] LABS: Hematocrit 30.8 % (35.5-45.6); Hemoglobin 9.8 gm/dl (11.8-15.2); Mean Corpuscular HGB Conc 32 % (32-34); Mean Corpuscular Hemoglobin 29 pg (28-32); Mean Corpuscular Volume 90 fl (84-94); Platelet Count 225 K/mm3 (140-440); Red Blood Count 3.43 M/mm3 (3.65-5.03); Red Cell Distribution Width 17.1 % (13.2-15.2)
[2018-01-19 05:00] LABS: BUN/Creatinine Ratio 26; Blood Urea Nitrogen 23 mg/dL (9-20); Calcium 7.4 mg/dL (8.4-10.2); Hemolysis Index 4
[2018-01-19] MEDS: HumaLOG SUB-Q SCH ×4 (08:02→18:24)
[2018-01-19] MEDS: PROTONIX IV SCH (09:45)
[2018-01-19] MEDS ORDERED: ATIVAN IV PRN (10:28)
--- NOTE | 2018-01-19 10:28 | Progress Note ---
Assessment and Plan Assessment and plan: Patient is a 47 yo man with a history of type 2 DM, hypertension, tobacco dependancy, Crohn's disease followed by Dr. Mix and recurrent SBO, just discharge with it on 12/28/17 who presents with n/v/abd pains after c-scopy prep and found to have the following: CT abd/pelvis w/o contrast IMPRESSION: High- grade mechanical small bowel obstruction proximal to the ileocecal junction where there are diffuse inflammatory changes compatible history recurrent Crohn' s disease. No evidence of abscess formation or adenopathy. -SBO, recurrent, worse this time s/p Exploratomy laparotomy, lysis of adhesions , ileocecectomy with primary anastomosis by Dr. 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 Gordon==>stopped purchasing analyst and switched to iv dilaudid prn repeat h/h, slight drop, stopped sq heparin==> resumed after speaking with Dr. Gordon, HCT slowly dropping, will continue to monitor closely restart steroids via iv because he is npo, hypotension much improved. Insomnia, will give iv ativan 0.5mg qhs prn sleep History Interval history: Patient was seen and examined. Follow-up on current diagnosis. He wants something for sleep. Imaging, nursing note, chart, labs and old chart reviewed. Discussed with patient. Hospitalist Physical - Physical exam Narrative exam: GEN: illappearing in NAD, AWAKE, ALERT, ORIENTATED x 3 HEENT: NCAT, EOMI, PERRL, OP Clear but dry NECK: supple, no adenopathy, no thyromegaly, no JVD CVS/HEART: regular tachy, NORMAL S1S2, pulses present bilaterally CHEST/LUNGS: CTA B, Symmetrical chest expansion, good air entry bilaterally GI/Abdomen: soft, large midline surgical incision excision with surgical dressing intact /Bladder: no suprapubic tenderness, no CVA or paraspinal tenderness EXT/Skin: no c/c/e, no obvious rash, capillary refill >2 seconds MSK: FROM x 4 Neuro: CN 2-12 grossly intact, no new focal deficits Psych: Calm - Constitutional Vitals: Temp Pulse Resp BP Pulse Ox 97.7 F 110 H 20 114/84 99 01/19/18 07:14 01/19/18 07:14 01/19/18 07:14 01/19/18 07:14 01/19/18 07:14 Results - Labs CBC & Chem 7: 01/19/18 04:26 01/19/18 04:26 Labs: Laboratory Last Values WBC 8.6 K/mm3 (4.5-11.0) 01/19/18 04:26 RBC 3.43 M/mm3 (3.65-5.03) L 01/19/18 04:26 Hgb 9.8 gm/dl (11.8-15.2) L 01/19/18 04:26 Hct 30.8 % (35.5-45.6) L 01/19/18 04:26 MCV 90 fl (84-94) 01/19/18 04:26 MCH 29 pg (28-32) 01/19/18 04:26 MCHC 32 % (32-34) 01/19/18 04:26 RDW 17.1 % (13.2-15.2) H 01/19/18 04:26 Plt Count 225 K/mm3 (140-440) 01/19/18 04:26 Lymph % (Auto) 13.7 % (13.4-35.0) 01/17/18 04:41 [place] % (Auto) 13.0 % (0.0-7.3) H 01/17/18 04:41 Eos % (Auto) 0.3 % (0.0-4.3) 01/17/18 04:41 Baso % (Auto) 0.3 % (0.0-1.8) 01/17/18 04:41 Lymph # 1.1 K/mm3 (1.2-5.4) L 01/17/18 04:41 [place] # 1.0 K/mm3 (0.0-0.8) H 01/17/18 04:41 Eos # 0.0 K/mm3 (0.0-0.4) 01/17/18 04:41 Baso # 0.0 K/mm3 (0.0-0.1) 01/17/18 04:41 Seg Neutrophils % 72.7 % (40.0-70.0) H 01/17/18 04:41 Seg Neutrophils # 5.6 K/mm3 (1.8-7.7) 01/17/18 04:41 Sodium 142 mmol/L (137-145) 01/19/18 04:26 Potassium 4.9 mmol/L (3.6-5.0) 01/19/18 04:26 Chloride 108.6 mmol/L (98-107) H 01/19/18 04:26 Carbon Dioxide 21 mmol/L (22-30) L 01/19/18 04:26 Anion Gap 17 mmol/L 01/19/18 04:26 BUN 23 mg/dL (9-20) H 01/19/18 04:26 Creatinine 0.9 mg/dL (0.8-1.5) 01/19/18 04:26 Estimated GFR > 60 ml/min 01/19/18 04:26 BUN/Creatinine Ratio 26 % 01/19/18 04:26 Glucose 135 mg/dL (75-100) H 01/19/18 04:26 POC Glucose 143 (70-105) H 01/19/18 06:09 Lactic Acid 1.60 mmol/L (0.7-2.0) 01/17/18 08:09 Calcium 7.4 mg/dL (8.4-10.2) L 01/19/18 04:26 Total Bilirubin 0.50 mg/dL (0.1-1.2) 01/17/18 04:41 AST 12 units/L (5-40) 01/17/18 04:41 ALT 10 units/L (7-56) 01/17/18 04:41 Alkaline Phosphatase 85 units/L (35-129) 01/17/18 04:41 Total Creatine Kinase 40 units/L (55-170) L 01/17/18 21:14 CK-MB (CK-2) 5.2 ng/mL (0.0-4.0) H 01/17/18 21:14 CK-MB (CK-2) Rel Index 13.0 (0-4) H 01/17/18 21:14 Troponin T < 0.010 ng/mL (0.00-0.029) 01/17/18 21:14 Total Protein 6.8 g/dL (6.3-8.2) 01/17/18 04:41 Albumin 3.5 g/dL (3.9-5) L 01/17/18 04:41 Albumin/Globulin Ratio 1.1 % 01/17/18 04:41 Lipase 9 units/L (13-60) L 01/18/18 04:54 Urine Color [place] (Yellow) 01/18/18 00:02 Urine Turbidity Clear (Clear) 01/18/18 00:02 Urine pH 5.0 (5.0-7.0) 01/18/18 00:02 Ur Specific [place] 1.021 (1.003-1.030) 01/18/18 00:02 Urine Protein <15 mg/dl mg/dL (Negative) 01/18/18 00:02 Urine Glucose (UA) Neg mg/dL (Negative) 01/18/18 00:02 Urine Ketones Tr mg/dL (Negative) 01/18/18 00:02 Urine Blood Neg (Negative) 01/18/18 00:02 Urine Nitrite Neg (Negative) 01/18/18 00:02 Urine Bilirubin Neg (Negative) 01/18/18 00:02 Urine Urobilinogen 4.0 mg/dL (<2.0) 01/18/18 00:02 Ur Leukocyte Esterase Tr (Negative) 01/18/18 00:02 Urine WBC (Auto) 19.0 /HPF (0.0-6.0) H 01/18/18 00:02 Urine RBC (Auto) 7.0 /HPF (0.0-6.0) 01/18/18 00:02 U Epithel Cells (Auto) < 1.0 /HPF (0-13.0) 01/18/18 00:02 Hyaline Casts 12 /LPF 01/18/18 00:02 Urine Mucus Few /HPF 01/18/18 00:02
[2018-01-19] MEDS: D5/0.45NS 1,000 ML IV SCH ×2 (10:30→20:15)
[2018-01-19 12:00] LABS: Bilirubin,Urine NEG (Negative); Blood,Urine SM (Negative); Color,Urine Yellow (Yellow); Mucus,Urine FEW /HPF; Protein,Urine <15 mg/dL mg/dL (Negative); RBC,Urine < 1.0 /HPF (0.0-6.0); Urobilinogen,Urine < 2.0 mg/dL (<2.0)
[2018-01-19] MEDS: HEPARIN SUB-Q SCH ×3 (15:07→22:34)
--- NOTE | 2018-01-19 15:55 | Progress Note ---
Assessment and Plan 47 yo M s/p Exploratory laparotomy, lysis of adhesions, ileocecectomy with primary anastomosis, POD 2 1. Crohns disease 2. High grade small bowel obstruction secondary to Crohn's stricture Plan: 1. NPO 2. IVF - change to maintenance 3. NGT to LCWS 4. c/w IV steroids - BP improved after steroids restarted 5. Pain control PRN 6. strict I/Os 7. DVT and GI ppx 8. HB slowly trending down - likely secondary to fluids, mild blood loss in OR, and fluid shifts. Will continue to monitor. 9. Ambulate ad timothy 10. Incentive spirometry encouraged/pulmonary toilet 11. Await bowel function 12. repeat BMP daily while patient NPO, replace lytes as needed Subjective Date of service: 01/19/18 Narrative: Pt seen and examined. No overnight events. No acute complaints. Pain is controlled. He has been ambulating. He denies n/v, cp, sob. No flatus or BM. Objective Vital Signs - 12hr 01/19/18 01/19/18 01/19/18 07:01 07:14 11:13 Temperature 97.7 F 98.0 F Pulse Rate 110 H 104 H Respiratory 17 20 18 Rate Blood Pressure 114/84 122/80 O2 Sat by Pulse 99 100 Oximetry - General physical appearance Narrative Exam: Gen: AAOx3. NAD ENT: NGT in place with light bilious drainage CV: s1, S2+ Resp: even and unlabored Abd: soft, NT, ND. Dressing removed. One piece of iodoform packing removed. Wound is c/d/i. No erythema or drainage. Covered with ABDs and tape. Ext: no c/c/e - Labs 01/19/18 04:26 01/19/18 04:26 Diabetes panel 01/19/18 Range/Units 04:26 Sodium 142 (137-145) mmol/L Potassium 4.9 (3.6-5.0) mmol/L Chloride 108.6 H (98-107) mmol/L Carbon Dioxide 21 L (22-30) mmol/L BUN 23 H (9-20) mg/dL Creatinine 0.9 (0.8-1.5) mg/dL Glucose 135 H (75-100) mg/dL Calcium 7.4 L (8.4-10.2) mg/dL Calcium panel 01/19/18 Range/Units 04:26 Calcium 7.4 L (8.4-10.2) mg/dL Pituitary panel 01/19/18 Range/Units 04:26 Sodium 142 (137-145) mmol/L Potassium 4.9 (3.6-5.0) mmol/L Chloride 108.6 H (98-107) mmol/L Carbon Dioxide 21 L (22-30) mmol/L BUN 23 H (9-20) mg/dL Creatinine 0.9 (0.8-1.5) mg/dL Glucose 135 H (75-100) mg/dL Calcium 7.4 L (8.4-10.2) mg/dL Adrenal panel 01/19/18 Range/Units 04:26 Sodium 142 (137-145) mmol/L Potassium 4.9 (3.6-5.0) mmol/L Chloride 108.6 H (98-107) mmol/L Carbon Dioxide 21 L (22-30) mmol/L BUN 23 H (9-20) mg/dL Creatinine 0.9 (0.8-1.5) mg/dL Glucose 135 H (75-100) mg/dL Calcium 7.4 L (8.4-10.2) mg/dL
[2018-01-20] MEDS: HumaLOG SUB-Q SCH ×4 (00:29→17:31)
[2018-01-20] MEDS: DILAUDID IV PRN ×5 (02:53→21:49)
[2018-01-20 05:00] LABS: Hematocrit 26.9 % (35.5-45.6); Hemoglobin 8.9 gm/dl (11.8-15.2); Mean Corpuscular HGB Conc 33 % (32-34); Mean Corpuscular Hemoglobin 29 pg (28-32); Mean Corpuscular Volume 87 fl (84-94); Platelet Count 195 K/mm3 (140-440); Red Blood Count 3.09 M/mm3 (3.65-5.03); Red Cell Distribution Width 16.5 % (13.2-15.2)
[2018-01-20 05:10] LABS: BUN/Creatinine Ratio 22; Blood Urea Nitrogen 13 mg/dL (9-20); Calcium 8.1 mg/dL (8.4-10.2); Hemolysis Index 2
[2018-01-20] MEDS: PROTONIX IV SCH (09:15)
[2018-01-20] MEDS: D5/0.45NS 1,000 ML IV SCH ×2 (09:16→23:45)
[2018-01-20] MEDS: HEPARIN SUB-Q SCH ×2 (11:00→22:00)
--- NOTE | 2018-01-20 13:09 | Progress Note ---
Assessment and Plan 47 yo M s/p Exploratory laparotomy, lysis of adhesions, ileocecectomy with primary anastomosis, POD 3 1. Crohns disease 2. High grade small bowel obstruction secondary to Crohn's stricture Plan: 1. NPO 2. IVF - maintenance 3. NGT - clamp trial until 4pm, if ok will remove NGT and start clear liquids 4. c/w IV steroids - BP improved after steroids restarted 5. Pain control PRN 6. strict I/Os 7. DVT and GI ppx 8. HB slowly trending down - likely secondary to fluids, mild blood loss in OR, and fluid shifts. Will continue to monitor. 9. Ambulate ad timothy 10. Incentive spirometry encouraged/pulmonary toilet 11. Await bowel function 12. repeat BMP daily while patient NPO, replace lytes as needed Subjective Date of service: 01/20/18 Narrative: Pt seen and examined. No complaints. +Flatus. No BM. Was drinking water from sink yesterday. Abd Pain is controlled. No f/c. Objective Vital Signs - 12hr 01/20/18 01/20/18 01/20/18 03:52 08:07 09:05 Temperature 98.3 F 98 F Pulse Rate 97 H 98 H 97 H Respiratory 18 18 Rate Blood Pressure 128/85 Blood Pressure 128/76 [Right] O2 Sat by Pulse 97 96 Oximetry 01/20/18 01/20/18 01/20/18 09:15 11:23 11:24 Temperature 98.4 F Pulse Rate 84 82 Respiratory 20 18 Rate Blood Pressure 122/78 Blood Pressure [Right] O2 Sat by Pulse 98 99 Oximetry - General physical appearance Narrative Exam: Gen: AAOx3. NAD ENT: NGT with light bilious drainage CV: S1, S2+ Resp: even and unlabored Abd: soft, ND, appropriate incisional TTP. Incision c/d/i, covered with island dressing. ND. hypoactive bowel sounds. Ext: no c/c/e - Labs 01/20/18 04:22 01/20/18 04:22 Diabetes panel 01/20/18 Range/Units 04:22 Sodium 136 L (137-145) mmol/L Potassium 4.7 (3.6-5.0) mmol/L Chloride 102.5 (98-107) mmol/L Carbon Dioxide 23 (22-30) mmol/L BUN 13 (9-20) mg/dL Creatinine 0.6 L (0.8-1.5) mg/dL Glucose 197 H (75-100) mg/dL Calcium 8.1 L (8.4-10.2) mg/dL Calcium panel 01/20/18 Range/Units 04:22 Calcium 8.1 L (8.4-10.2) mg/dL Pituitary panel 01/20/18 Range/Units 04:22 Sodium 136 L (137-145) mmol/L Potassium 4.7 (3.6-5.0) mmol/L Chloride 102.5 (98-107) mmol/L Carbon Dioxide 23 (22-30) mmol/L BUN 13 (9-20) mg/dL Creatinine 0.6 L (0.8-1.5) mg/dL Glucose 197 H (75-100) mg/dL Calcium 8.1 L (8.4-10.2) mg/dL Adrenal panel 01/20/18 Range/Units 04:22 Sodium 136 L (137-145) mmol/L Potassium 4.7 (3.6-5.0) mmol/L Chloride 102.5 (98-107) mmol/L Carbon Dioxide 23 (22-30) mmol/L BUN 13 (9-20) mg/dL Creatinine 0.6 L (0.8-1.5) mg/dL Glucose 197 H (75-100) mg/dL Calcium 8.1 L (8.4-10.2) mg/dL
--- NOTE | 2018-01-20 14:19 | Progress Note ---
Assessment and Plan Assessment and plan: Patient is a 47 yo man with a history of type 2 DM, hypertension, tobacco dependancy, Crohn's disease followed by Dr. Mix and recurrent SBO, just discharge with it on 12/28/17 who presents with n/v/abd pains after c-scopy prep and found to have the following: CT abd/pelvis w/o contrast IMPRESSION: High- grade mechanical small bowel obstruction proximal to the ileocecal junction where there are diffuse inflammatory changes compatible history recurrent Crohn' s disease. No evidence of abscess formation or adenopathy. -SBO, recurrent, worse this time s/p Exploratomy laparotomy, lysis of adhesions , ileocecectomy with primary anastomosis by Dr. Gordon -SIRS with suspected early sepsis due to above, poa: Ordered lactate levels, blood cultures, IV fluids, started empiric IV Zosyn -Type 2 DM: npo, ssi q6hrs -Crohn's colitis with complications/stricture causing sbo s/p surgery, hold Imuran due to sbo, change chronic oral steroids to iv steroids -Hypertension: prn iv labetalol, hold lisinopril -Abnormal EKG with st, pvc and LAFB: ordered remote tele, ce, troponin, repeat EKG, -Tobacco/marijuana: counseling done -DVT prophylaxis: scd for now, stopped sq heparin due to drop in hct -GI prophylaxis: iv protonix bp low, bolus x 2, started maintenance fluid, 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 Gordon==>stopped observation assistant and switched to iv dilaudid prn repeat h/h, slight drop, stopped sq heparin==> resumed after speaking with Dr. Gordon, HCT slowly dropping, will continue to monitor closely restart steroids via iv because he is npo, hypotension much improved. Insomnia, will give iv ativan 0.5mg qhs prn sleep still with ngt, hyperglycemia, on d5 additive for nutrition and iv solumedrol, will decrease the iv solumedrol to once a day and continue ssi. History Interval history: Patient was seen and examined. Follow-up on current diagnosis. He wants something for sleep. Imaging, nursing note, chart, labs and old chart reviewed. Discussed with patient. Hospitalist Physical - Physical exam Narrative exam: GEN: illappearing in NAD, AWAKE, ALERT, ORIENTATED x 3 HEENT: NCAT, EOMI, PERRL, OP Clear but dry NECK: supple, no adenopathy, no thyromegaly, no JVD CVS/HEART: regular tachy, NORMAL S1S2, pulses present bilaterally CHEST/LUNGS: CTA B, Symmetrical chest expansion, good air entry bilaterally GI/Abdomen: soft, large midline surgical incision excision with surgical dressing intact /Bladder: no suprapubic tenderness, no CVA or paraspinal tenderness EXT/Skin: no c/c/e, no obvious rash, capillary refill >2 seconds MSK: FROM x 4 Neuro: CN 2-12 grossly intact, no new focal deficits Psych: Calm - Constitutional Vitals: Temp Pulse Resp BP Pulse Ox 98.4 F 84 18 122/78 99 01/20/18 11:23 01/20/18 11:24 01/20/18 13:28 01/20/18 11:23 01/20/18 11:24 Results - Labs CBC & Chem 7: 01/20/18 04:22 01/20/18 04:22 Labs: Laboratory Last Values WBC 8.2 K/mm3 (4.5-11.0) 01/20/18 04:22 RBC 3.09 M/mm3 (3.65-5.03) L 01/20/18 04:22 Hgb 8.9 gm/dl (11.8-15.2) L 01/20/18 04:22 Hct 26.9 % (35.5-45.6) L 01/20/18 04:22 MCV 87 fl (84-94) 01/20/18 04:22 MCH 29 pg (28-32) 01/20/18 04:22 MCHC 33 % (32-34) 01/20/18 04:22 RDW 16.5 % (13.2-15.2) H 01/20/18 04:22 Plt Count 195 K/mm3 (140-440) 01/20/18 04:22 Lymph % (Auto) 13.7 % (13.4-35.0) 01/17/18 04:41 [place] % (Auto) 13.0 % (0.0-7.3) H 01/17/18 04:41 Eos % (Auto) 0.3 % (0.0-4.3) 01/17/18 04:41 Baso % (Auto) 0.3 % (0.0-1.8) 01/17/18 04:41 Lymph # 1.1 K/mm3 (1.2-5.4) L 01/17/18 04:41 [place] # 1.0 K/mm3 (0.0-0.8) H 01/17/18 04:41 Eos # 0.0 K/mm3 (0.0-0.4) 01/17/18 04:41 Baso # 0.0 K/mm3 (0.0-0.1) 01/17/18 04:41 Seg Neutrophils % 72.7 % (40.0-70.0) H 01/17/18 04:41 Seg Neutrophils # 5.6 K/mm3 (1.8-7.7) 01/17/18 04:41 Sodium 136 mmol/L (137-145) L 01/20/18 04:22 Potassium 4.7 mmol/L (3.6-5.0) 01/20/18 04:22 Chloride 102.5 mmol/L (98-107) 01/20/18 04:22 Carbon Dioxide 23 mmol/L (22-30) 01/20/18 04:22 Anion Gap 15 mmol/L 01/20/18 04:22 BUN 13 mg/dL (9-20) 01/20/18 04:22 Creatinine 0.6 mg/dL (0.8-1.5) L 01/20/18 04:22 Estimated GFR > 60 ml/min 01/20/18 04:22 BUN/Creatinine Ratio 22 % 01/20/18 04:22 Glucose 197 mg/dL (75-100) H 01/20/18 04:22 POC Glucose 209 (70-105) H 01/20/18 13:23 Lactic Acid 1.60 mmol/L (0.7-2.0) 01/17/18 08:09 Calcium 8.1 mg/dL (8.4-10.2) L 01/20/18 04:22 Total Bilirubin 0.50 mg/dL (0.1-1.2) 01/17/18 04:41 AST 12 units/L (5-40) 01/17/18 04:41 ALT 10 units/L (7-56) 01/17/18 04:41 Alkaline Phosphatase 85 units/L (35-129) 01/17/18 04:41 Total Creatine Kinase 40 units/L (55-170) L 01/17/18 21:14 CK-MB (CK-2) 5.2 ng/mL (0.0-4.0) H 01/17/18 21:14 CK-MB (CK-2) Rel Index 13.0 (0-4) H 01/17/18 21:14 Troponin T < 0.010 ng/mL (0.00-0.029) 01/17/18 21:14 Total Protein 6.8 g/dL (6.3-8.2) 01/17/18 04:41 Albumin 3.5 g/dL (3.9-5) L 01/17/18 04:41 Albumin/Globulin Ratio 1.1 % 01/17/18 04:41 Lipase 9 units/L (13-60) L 01/18/18 04:54 Urine Color Yellow (Yellow) 01/19/18 11:30 Urine Turbidity Clear (Clear) 01/19/18 11:30 Urine pH 5.0 (5.0-7.0) 01/19/18 11:30 Ur Specific [place] 1.016 (1.003-1.030) 01/19/18 11:30 Urine Protein <15 mg/dl mg/dL (Negative) 01/19/18 11:30 Urine Glucose (UA) Neg mg/dL (Negative) 01/19/18 11:30 Urine Ketones 20 mg/dL (Negative) 01/19/18 11:30 Urine Blood Sm (Negative) 01/19/18 11:30 Urine Nitrite Neg (Negative) 01/19/18 11:30 Urine Bilirubin Neg (Negative) 01/19/18 11:30 Urine Urobilinogen < 2.0 mg/dL (<2.0) 01/19/18 11:30 Ur Leukocyte Esterase Neg (Negative) 01/19/18 11:30 Urine WBC (Auto) 2.0 /HPF (0.0-6.0) 01/19/18 11:30 Urine RBC (Auto) < 1.0 /HPF (0.0-6.0) 01/19/18 11:30 U Epithel Cells (Auto) < 1.0 /HPF (0-13.0) 01/18/18 00:02 Hyaline Casts 12 /LPF 01/18/18 00:02 Urine Mucus Few /HPF 01/19/18 11:30
[2018-01-21] MEDS: HumaLOG SUB-Q SCH ×2 (00:19→05:47)
[2018-01-21] MEDS: DILAUDID IV PRN ×4 (01:42→13:58)
[2018-01-21] MEDS: PROTONIX IV SCH (09:51)
[2018-01-21] MEDS: HEPARIN SUB-Q SCH ×2 (09:58→21:29)
--- NOTE | 2018-01-21 11:25 | Progress Note ---
Assessment and Plan Assessment and plan: Patient is a 47 yo man with a history of type 2 DM, hypertension, tobacco dependancy, Crohn's disease followed by Dr. Mix and recurrent SBO, just discharge with it on 12/28/17 who presents with n/v/abd pains after c-scopy prep and found to have the following: CT abd/pelvis w/o contrast IMPRESSION: High- grade mechanical small bowel obstruction proximal to the ileocecal junction where there are diffuse inflammatory changes compatible history recurrent Crohn' s disease. No evidence of abscess formation or adenopathy. -SBO, recurrent, worse this time s/p Exploratomy laparotomy, lysis of adhesions , ileocecectomy with primary anastomosis by Dr. Gordon -SIRS with suspected early sepsis due to above, poa: Ordered lactate levels, blood cultures, IV fluids, started empiric IV Zosyn -Type 2 DM: npo, ssi q6hrs -Crohn's colitis with complications/stricture causing sbo s/p surgery, hold Imuran due to sbo, change chronic oral steroids to iv steroids -Hypertension: prn iv labetalol, hold lisinopril until tolerating oral diet better -Abnormal EKG with st, pvc and LAFB: ordered remote tele, ce, troponin, repeat EKG, -Tobacco/marijuana use: counseling done -DVT prophylaxis: scd for now, stopped sq heparin due to drop in hct -GI prophylaxis: iv protonix bp low, bolus x 2, started maintenance fluid, may need to stop [employer], I reached out to surgeon, Dr. 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 Gordon, HCT slowly dropping, will continue to monitor closely restart steroids via iv because he is npo, hypotension much improved. Insomnia, will give iv ativan 0.5mg qhs prn sleep still with ngt, hyperglycemia, on d5 additive for nutrition and iv solumedrol, will decrease the iv solumedrol to once a day and continue ssi. 01/21/18: NGT removed yesterday and he tolerated full liquid diet. He is asking to increase 1mg iv dilaudid, I declined his request for safety reason. Dispo: d/c once Surgery clears. History Interval history: Patient was seen and examined. Follow-up on current diagnosis of sbo s/p surgery. Imaging, nursing note, chart, labs and old chart reviewed. Discussed with patient. Hospitalist Physical - Physical exam Narrative exam: GEN: illappearing in NAD, AWAKE, ALERT, ORIENTATED x 3 HEENT: NCAT, EOMI, PERRL, OP Clear but dry, ngt removed yesterday NECK: supple, no adenopathy, no thyromegaly, no JVD CVS/HEART: regular tachy, NORMAL S1S2, pulses present bilaterally CHEST/LUNGS: CTA B, Symmetrical chest expansion, good air entry bilaterally GI/Abdomen: soft, large midline surgical incision excision with surgical dressing intact /Bladder: no suprapubic tenderness, no CVA or paraspinal tenderness EXT/Skin: no c/c/e, no obvious rash, capillary refill >2 seconds MSK: FROM x 4 Neuro: CN 2-12 grossly intact, no new focal deficits Psych: Calm - Constitutional Vitals: Temp Pulse Resp BP Pulse Ox 98.7 F 70 20 112/69 99 01/21/18 07:21 01/21/18 07:21 01/21/18 04:42 01/21/18 07:21 01/21/18 07:21 Results - Labs CBC & Chem 7: 01/20/18 04:22 01/20/18 04:22 Labs: Laboratory Last Values WBC 8.2 K/mm3 (4.5-11.0) 01/20/18 04:22 RBC 3.09 M/mm3 (3.65-5.03) L 01/20/18 04:22 Hgb 8.9 gm/dl (11.8-15.2) L 01/20/18 04:22 Hct 26.9 % (35.5-45.6) L 01/20/18 04:22 MCV 87 fl (84-94) 01/20/18 04:22 MCH 29 pg (28-32) 01/20/18 04:22 MCHC 33 % (32-34) 01/20/18 04:22 RDW 16.5 % (13.2-15.2) H 01/20/18 04:22 Plt Count 195 K/mm3 (140-440) 01/20/18 04:22 Lymph % (Auto) 13.7 % (13.4-35.0) 01/17/18 04:41 [place] % (Auto) 13.0 % (0.0-7.3) H 01/17/18 04:41 Eos % (Auto) 0.3 % (0.0-4.3) 01/17/18 04:41 Baso % (Auto) 0.3 % (0.0-1.8) 01/17/18 04:41 Lymph # 1.1 K/mm3 (1.2-5.4) L 01/17/18 04:41 [place] # 1.0 K/mm3 (0.0-0.8) H 01/17/18 04:41 Eos # 0.0 K/mm3 (0.0-0.4) 01/17/18 04:41 Baso # 0.0 K/mm3 (0.0-0.1) 01/17/18 04:41 Seg Neutrophils % 72.7 % (40.0-70.0) H 01/17/18 04:41 Seg Neutrophils # 5.6 K/mm3 (1.8-7.7) 01/17/18 04:41 Sodium 136 mmol/L (137-145) L 01/20/18 04:22 Potassium 4.7 mmol/L (3.6-5.0) 01/20/18 04:22 Chloride 102.5 mmol/L (98-107) 01/20/18 04:22 Carbon Dioxide 23 mmol/L (22-30) 01/20/18 04:22 Anion Gap 15 mmol/L 01/20/18 04:22 BUN 13 mg/dL (9-20) 01/20/18 04:22 Creatinine 0.6 mg/dL (0.8-1.5) L 01/20/18 04:22 Estimated GFR > 60 ml/min 01/20/18 04:22 BUN/Creatinine Ratio 22 % 01/20/18 04:22 Glucose 197 mg/dL (75-100) H 01/20/18 04:22 POC Glucose 150 (70-105) H 01/21/18 11:13 Lactic Acid 1.60 mmol/L (0.7-2.0) 01/17/18 08:09 Calcium 8.1 mg/dL (8.4-10.2) L 01/20/18 04:22 Total Bilirubin 0.50 mg/dL (0.1-1.2) 01/17/18 04:41 AST 12 units/L (5-40) 01/17/18 04:41 ALT 10 units/L (7-56) 01/17/18 04:41 Alkaline Phosphatase 85 units/L (35-129) 01/17/18 04:41 Total Creatine Kinase 40 units/L (55-170) L 01/17/18 21:14 CK-MB (CK-2) 5.2 ng/mL (0.0-4.0) H 01/17/18 21:14 CK-MB (CK-2) Rel Index 13.0 (0-4) H 01/17/18 21:14 Troponin T < 0.010 ng/mL (0.00-0.029) 01/17/18 21:14 Total Protein 6.8 g/dL (6.3-8.2) 01/17/18 04:41 Albumin 3.5 g/dL (3.9-5) L 01/17/18 04:41 Albumin/Globulin Ratio 1.1 % 01/17/18 04:41 Lipase 9 units/L (13-60) L 01/18/18 04:54 Urine Color Yellow (Yellow) 01/19/18 11:30 Urine Turbidity Clear (Clear) 01/19/18 11:30 Urine pH 5.0 (5.0-7.0) 01/19/18 11:30 Ur Specific [place] 1.016 (1.003-1.030) 01/19/18 11:30 Urine Protein <15 mg/dl mg/dL (Negative) 01/19/18 11:30 Urine Glucose (UA) Neg mg/dL (Negative) 01/19/18 11:30 Urine Ketones 20 mg/dL (Negative) 01/19/18 11:30 Urine Blood Sm (Negative) 01/19/18 11:30 Urine Nitrite Neg (Negative) 01/19/18 11:30 Urine Bilirubin Neg (Negative) 01/19/18 11:30 Urine Urobilinogen < 2.0 mg/dL (<2.0) 01/19/18 11:30 Ur Leukocyte Esterase Neg (Negative) 01/19/18 11:30 Urine WBC (Auto) 2.0 /HPF (0.0-6.0) 01/19/18 11:30 Urine RBC (Auto) < 1.0 /HPF (0.0-6.0) 01/19/18 11:30 U Epithel Cells (Auto) < 1.0 /HPF (0-13.0) 01/18/18 00:02 Hyaline Casts 12 /LPF 01/18/18 00:02 Urine Mucus Few /HPF 01/19/18 11:30
[2018-01-21] MEDS ORDERED: DILAUDID PO PRN (14:29)
--- NOTE | 2018-01-21 14:29 | Progress Note ---
Assessment and Plan 47 yo M s/p Exploratory laparotomy, lysis of adhesions, ileocecectomy with primary anastomosis, POD 4 1. Crohns disease 2. High grade small bowel obstruction secondary to Crohn's stricture Plan: 1. adv to soft diet 2. dc IVF 3. restart PO steroids 5. PO Pain control PRN 6. strict I/Os 7. DVT and GI ppx 8. Ambulate ad timothy 9. Incentive spirometry encouraged/pulmonary toilet 10. restart home meds Subjective Date of service: 01/21/18 Narrative: Pt seen and examined. c/o several loose stools today. No n/v. +Flatus. Tolerating full liquid diet. No n/v, f/c. Ambulating. Pain is controlled. Abd dressing changed this am by nursing. Objective Vital Signs - 12hr 01/21/18 01/21/18 01/21/18 04:42 07:21 11:24 Temperature 97.6 F 98.7 F 98.5 F Pulse Rate 63 70 85 Respiratory 20 18 Rate Blood Pressure 125/74 112/69 Blood Pressure 120/73 [Right] O2 Sat by Pulse 98 99 94 Oximetry - General physical appearance Narrative Exam: Gen: AAOx3. NAD CV: s1, S2+ Resp: even and unlabored Abd: soft, NT, ND. dressing c/d/i Ext: no c/c/e - Labs 01/20/18 04:22 01/20/18 04:22
[2018-01-21] MEDS: PERCOCET 5/325 PO PRN (18:34)
[2018-01-21] MEDS: IMURAN PO SCH (18:36)
[2018-01-21] MEDS: DELTASONE PO SCH (18:38)
[2018-01-21] MEDS: AMBIEN PO PRN (21:29)
[2018-01-22] MEDS: PERCOCET 5/325 PO PRN ×4 (00:35→19:50)
[2018-01-22 05:03] LABS: Hematocrit 24.5 % (35.5-45.6); Hemoglobin 8.1 gm/dl (11.8-15.2); Mean Corpuscular HGB Conc 33 % (32-34); Mean Corpuscular Hemoglobin 28 pg (28-32); Mean Corpuscular Volume 86 fl (84-94); Platelet Count 171 K/mm3 (140-440); Red Blood Count 2.85 M/mm3 (3.65-5.03); Red Cell Distribution Width 15.6 % (13.2-15.2)
[2018-01-22 05:11] LABS: BUN/Creatinine Ratio 18; Blood Urea Nitrogen 9 mg/dL (9-20); Calcium 8.2 mg/dL (8.4-10.2); Hemolysis Index 2
[2018-01-22] MEDS: HEPARIN SUB-Q SCH ×2 (11:08→22:15)
[2018-01-22] MEDS: DELTASONE PO SCH (11:11)
[2018-01-22] MEDS: IMURAN PO SCH (11:12)
--- NOTE | 2018-01-22 14:40 | Progress Note ---
Assessment and Plan / SBO, recurrent, likely from underlying malignancy and Crohn's disease - worse this time s/p Exploratomy laparotomy, lysis of adhesions, ileocecectomy with primary anastomosis by Dr. Gordon - Biopsy shows underlying malignancy - Patient is tolerating diet, planned for EGD and colonoscopy tomorrow /SIRS with suspected early sepsis due to above, poa: -Ordered lactate levels, blood cultures, IV fluids, started empiric IV Zosyn /Type 2 DM: ssi q6hrs / Crohn's colitis with complications/stricture causing sbo s/p surgery, - hold Imuran due to sbo, changed chronic oral steroids to iv steroids /Hypertension: prn iv labetalol, hold lisinopril until tolerating oral diet better / Abnormal EKG with st, pvc and LAFB: ordered remote tele, ce, troponin, repeat EKG, patient complaining of chest pain / Tobacco/marijuana use: counseling done / DVT prophylaxis: scd for now, stopped sq heparin due to drop in hct /GI prophylaxis: iv protonix Brief history: Patient is a 47 yo man with a history of type 2 DM, hypertension, tobacco dependancy, Crohn's disease followed by Dr. Mix and recurrent SBO, just discharge on 12/28/17 who presents with n/v/abd pains after c-scopy prep. He was evaluated with CT scan of abdomen and pelvis in the ER which showed High- grade mechanical small bowel obstruction proximal to the ileocecal junction where there are diffuse inflammatory changes compatible with history of Crohn's disease. Patient was evaluated by general surgery with the status post exploratory laparotomy, lysis of adhesions, ileocecectomy with primary anastomosis. 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 Patient will be remained admitted for further evaluation and management. Pathology results: Preliminary pathology discussed with Dr. Ontiveros. The specimen shows signet cells with mucinous features consistent with carcinoma. The cancer is through the serosa. 7-8 lymph nodes examined and are negative. The cecum margin is negative for malignancy. The small bowel margin shows signet cells and . ? primary. Hospitalist Physical GEN: illappearing in NAD, AWAKE, ALERT, ORIENTATED x 3 HEENT: NCAT, EOMI, PERRL, OP Clear but dry, ngt removed yesterday NECK: supple, no adenopathy, no thyromegaly, no JVD CVS/HEART: regular tachy, NORMAL S1S2, pulses present bilaterally CHEST/LUNGS: CTA B, Symmetrical chest expansion, good air entry bilaterally GI/Abdomen: soft, large midline surgical incision excision with surgical dressing intact /Bladder: no suprapubic tenderness, no CVA or paraspinal tenderness EXT/Skin: no c/c/e, no obvious rash, capillary refill >2 seconds MSK: FROM x 4 Neuro: CN 2-12 grossly intact, no new focal deficits Psych: Calm Subjective Date of service: 01/22/18 Principal diagnosis: Small bowel obstruction Interval history: Patient was seen and examined. Follow-up on current diagnosis of sbo s/p surgery. Imaging, nursing note, chart, labs and old chart reviewed. Discussed with patient about the biopsy results and possible EGD and colonoscopy tomorrow. Objective - Constitutional Vitals: Vital Signs - 12hr 01/22/18 01/22/18 04:43 06:53 Temperature 98.1 F Pulse Rate 81 Respiratory 20 18 Rate Blood Pressure 135/76 O2 Sat by Pulse 98 Oximetry - Labs CBC & Chem 7: 01/23/18 04:24 01/22/18 04:38 Labs: Abnormal lab results 01/22/18 01/22/18 Range/Units 04:38 04:38 RBC 2.85 L (3.65-5.03) M/mm3 Hgb 8.1 L (11.8-15.2) gm/dl Hct 24.5 L (35.5-45.6) % RDW 15.6 H (13.2-15.2) % Creatinine 0.5 L (0.8-1.5) mg/dL Glucose 186 H (75-100) mg/dL Calcium 8.2 L (8.4-10.2) mg/dL
[2018-01-22] MEDS: XANAX PO PRN (15:06)
--- NOTE | 2018-01-22 15:44 | Progress Note ---
Assessment and Plan 47 yo M s/p Exploratory laparotomy, lysis of adhesions, ileocecectomy with primary anastomosis, POD 5 1. Crohns disease 2. High grade small bowel obstruction 3. Carcinoma Preliminary pathology reviewed with Dr. March. The specimen shows signet cells with mucinous features consistent with carcinoma. The cancer is through the serosa. 7-8 lymph nodes examined and are negative. The cecum margin is negative for malignancy. The small bowel margin shows signet cells and . ?primary. Plan: 1. NPO p MN 2. EGD possibly in am - D/W GI. To r/o gastric primary 3. CXR 4. CEA 5. await final pathology 6. onc c/s - I discussed the case extensively with Dr. Dai. If stomach is r/o as primary, will proceed with right hemicolectomy and small bowel resection to obtain negative margins and perform formal cancer resection. I also discussed the case with Dr. Quinteros (Surgical oncology) at [place] who recommends this and agrees with the plan. 7. I had a long discussion with the patient regarding the pathology and plan. The patient understands that he will need further workup for cancer and repeat surgical intervention. He understands and is agreeable to proceed with w/u. All questions answered. D/W Dr. Bennett. Subjective Date of service: 01/22/18 Narrative: Pt seen and examined. Feels well. No overnight events. Diarrhea has improved. Tolerating soft diet. No n/v, f/c. Objective Vital Signs - 12hr 01/22/18 01/22/18 04:43 06:53 Temperature 98.1 F Pulse Rate 81 Respiratory 20 18 Rate Blood Pressure 135/76 O2 Sat by Pulse 98 Oximetry - General physical appearance Narrative Exam: Gen: AAOx3. NAD CV: S1, S2+ Resp: No audible wheezes Abd: soft, ND, appropriate incisional TTP. incision c/d/i. Coversite dressing applied. Ext: no c/c/e - Labs 01/22/18 04:38 01/22/18 04:38 Diabetes panel 01/22/18 Range/Units 04:38 Sodium 137 (137-145) mmol/L Potassium 4.3 (3.6-5.0) mmol/L Chloride 99.9 (98-107) mmol/L Carbon Dioxide 26 (22-30) mmol/L BUN 9 (9-20) mg/dL Creatinine 0.5 L (0.8-1.5) mg/dL Glucose 186 H (75-100) mg/dL Calcium 8.2 L (8.4-10.2) mg/dL Calcium panel 01/22/18 Range/Units 04:38 Calcium 8.2 L (8.4-10.2) mg/dL Pituitary panel 01/22/18 Range/Units 04:38 Sodium 137 (137-145) mmol/L Potassium 4.3 (3.6-5.0) mmol/L Chloride 99.9 (98-107) mmol/L Carbon Dioxide 26 (22-30) mmol/L BUN 9 (9-20) mg/dL Creatinine 0.5 L (0.8-1.5) mg/dL Glucose 186 H (75-100) mg/dL Calcium 8.2 L (8.4-10.2) mg/dL Adrenal panel 01/22/18 Range/Units 04:38 Sodium 137 (137-145) mmol/L Potassium 4.3 (3.6-5.0) mmol/L Chloride 99.9 (98-107) mmol/L Carbon Dioxide 26 (22-30) mmol/L BUN 9 (9-20) mg/dL Creatinine 0.5 L (0.8-1.5) mg/dL Glucose 186 H (75-100) mg/dL Calcium 8.2 L (8.4-10.2) mg/dL
--- NOTE | 2018-01-22 18:14 | XRay Report ---
FINAL REPORT EXAM: XR CHEST ROUTINE 2V HISTORY: colon cancer, malignancy workup TECHNIQUE: Chest two views PRIORS: Correlated with prior exam December 17, 2017 FINDINGS: There is linear opacity at the left lung base consistent with area of atelectasis new since the prior exam. No additional acute pulmonary findings are identified. Cardiac and mediastinal contours are unremarkable. No pleural effusion identified. IMPRESSION: Atelectasis at the left lung base new since the prior exam
--- NOTE | 2018-01-22 18:31 | Gastroenterology Progress Note ---
Assessment and Plan - Patient Problems (1) Crohn's disease of small intestine with intestinal obstruction Current Visit: Yes Status: Acute Plan to address problem: - Hx of CD > 15 years, with prior use of Remicade (off x several years due to insurance). - Hx of small bowel surgery for both obstruction and fistula (separate surgeries ). - No role for Humira/remicade or other significant immunosuppressant at present until status of carcinoma is determined. (2) Signet ring cell adenocarcinoma Current Visit: Yes Status: Acute Plan to address problem: - Signet ring adenocarcinoma by preliminary Pathology report of small bowel stricture. - Will get EGD tomorrow to r/o a proximal source (though CT shows no stomach wall thickening, nor evidence of metastatic disease). - NPO after midnight; patient acceptable surgical risk given significant improvement after surgical resection. Subjective Date of service: 01/22/18 Principal diagnosis: Small bowel obstruction/Signet Ring Cancer Interval history: The patient's pathology from his SBO returned as containing signet-ring cancer ( though LN were negative, did penetrate to serosal margin, and proximal SB resection site by report). He was actually doing quite well after surgery, and had planned to d/c home today. He has no rectal bleeding, and had started PO intake without vomiting. His pain from the chronic RLQ obstruction has resolved. Objective - Constitutional Vitals: Temp Pulse Resp BP Pulse Ox 97.7 F 70 18 145/86 98 01/22/18 16:55 01/22/18 16:55 01/22/18 16:55 01/22/18 16:55 01/22/18 16:55 General appearance: no acute distress - EENT Eyes: PERRL, EOM intact - Respiratory Respiratory effort: normal Respiratory: bilateral: CTA - Cardiovascular Rhythm: regular Heart Sounds: Present: S1 & S2 - Gastrointestinal General gastrointestinal: Present: soft, non-tender, non-distended - Labs CBC & Chem 7: 01/22/18 04:38 01/22/18 04:38 Labs: Laboratory Results - last 24 hr 01/22/18 01/22/18 04:38 04:38 WBC 5.6 RBC 2.85 L Hgb 8.1 L Hct 24.5 L MCV 86 MCH 28 MCHC 33 RDW 15.6 H Plt Count 171 Sodium 137 Potassium 4.3 Chloride 99.9 Carbon Dioxide 26 Anion Gap 15 BUN 9 Creatinine 0.5 L Estimated GFR > 60 BUN/Creatinine Ratio 18 Glucose 186 H Calcium 8.2 L Magnesium 1.80
[2018-01-22] MEDS: AMBIEN PO PRN (22:17)
[2018-01-22] MEDS ORDERED: D5/0.45NS 1,000 ML IV SCH (23:59)
[2018-01-23] MEDS: PERCOCET 5/325 PO PRN ×4 (01:09→22:32)
[2018-01-23 04:54] LABS: Hematocrit 28.1 % (35.5-45.6); Hemoglobin 8.7 gm/dl (11.8-15.2); Mean Corpuscular HGB Conc 31 % (32-34); Mean Corpuscular Hemoglobin 28 pg (28-32); Mean Corpuscular Volume 92 fl (84-94); Platelet Count 191 K/mm3 (140-440); Red Blood Count 3.07 M/mm3 (3.65-5.03); Red Cell Distribution Width 16.4 % (13.2-15.2)
[2018-01-23] MEDS: XANAX PO PRN ×2 (05:50→15:45)
[2018-01-23] MEDS: ZOFRAN IV PRN ×2 (08:27→22:33)
--- NOTE | 2018-01-23 10:22 | Hem/Onc Consultation ---
History of Present Illness - Reason for Consult Consult date: 01/23/18 - History of Present Illness patient is a 47 y/o male with PMH of DM, HTN, tobacco dependency, and Crohn's disease (diagnosed in 1993 requiring partial resection and then had an enterocutaneous fistula and surgery in 2004 or 2005) who is well known to our service. He has had multiple recent hospitalizations with last discharge on due to exacerbation of Crohn's disease with a partial SBO 2/2 receiving inadequate care for the past several years from pt's non-compliance with follow up due to lack of insurance. He has been on prednisone and Imuran for the last couple of months while in the process of outpatient restaging work up for starting biologic therapy. He was actually scheduled for an outpatient colonoscopy today with Dr. Mix, however after drinking his colon prep last night, he developed severe abd pain, N/V with brownish emesis, and only had 1 BM with a scant amount of solid brown stool. Abd CT scan revealed a high grade mechanical small bowel obstruction proximal to the ileocecal junction where there is diffuse inflammation changes compatible with recurrent Crohn's disease. Surgery was consulted. Patient did undergo expiratory lap and was found to have significant stricture in the ileocecal area. Please see Dr. Gordon's note for details. He underwent resection of the area of stricture. Appendix was not identified. The preliminary pathology on the specimen shows significant ring cell tumor. The margins on those cecal site was negative but in the yield site was positive. There was no gross disease in the area with a margin is positive. Case was discussed with dr gordon and she is anticipating right hemicolectomy and extension of the ileal margin with frozen section to ensure the margins are negative. She also discussed the case with Dr. Quinteros at [place] who agrees. Next Patient is to undergo EGD today to make sure there is no GI primary that may be causing him to have signet ring cell tumor in the ileocecal area Past History Past Medical History: diabetes, hypertension, other (Crohn's disease) Past Surgical History: bowel surgery Social history: smoking Family history: diabetes, hypertension Medications and Allergies Allergies Allergy/AdvReac Type Severity Reaction Status Date / Time No Known Allergies Allergy Unverified 11/20/17 10:31 Home Medications Medication Instructions Recorded Confirmed Last Taken Type Lisinopril [Zestril TAB] 10 mg PO QDAY 11/20/17 12/25/17 Unknown History Metformin HCl 1 tab PO DAILY 11/20/17 12/25/17 Unknown History Zolpidem [Ambien] 10 mg PO QHS 11/20/17 12/25/17 Unknown History azaTHIOprine [Imuran] 50 mg PO QDAY #30 tablet 12/21/17 12/25/17 Unknown Rx predniSONE [Deltasone] 40 mg PO QDAY #60 tablet 12/21/17 12/25/17 Unknown Rx oxyCODONE /ACETAMINOPHEN [Percocet 1 tab PO BID PRN #14 tablet 12/28/17 Unknown Rx 5/325 mg] Active Meds: Active Medications Alprazolam (Xanax) 0.25 mg PO Q8H PRN PRN Reason: Anxiety Last Admin: 01/23/18 05:50 Dose: 0.25 mg Azathioprine (Imuran) 50 mg PO QDAY [facility] Last Admin: 01/22/18 11:12 Dose: 50 mg Dextrose (D50w (25gm) Syringe) 50 ml IV PRN PRN PRN Reason: Hypoglycemia Heparin Sodium (Porcine) (Heparin) 5,000 unit SUB-Q Q12HR [facility] Last Admin: 01/22/18 22:15 Dose: 5,000 unit Dextrose/Sodium Chloride (D5/0.45ns) 1,000 mls @ 75 mls/hr IV DIRECT [facility] Last Admin: 01/23/18 01:10 Dose: 75 mls/hr Labetalol HCl (Normodyne) 10 mg IV Q4H PRN PRN Reason: Blood Pressure Naloxone HCl (Narcan 0.4 Mg/1 Ml) 0.1 mg IV Q2MIN PRN PRN Reason: Res Rate </= 8 or 02 SAT < 92% Ondansetron HCl (Zofran) 4 mg IV Q4H PRN PRN Reason: N/V unrelieved by Regissac Last Admin: 01/23/18 08:27 Dose: 4 mg Oxycodone/Acetaminophen (Percocet 5/325) 2 tab PO Q6H PRN PRN Reason: Pain, Moderate (4-6) Last Admin: 01/23/18 08:27 Dose: 2 tab Prednisone (Deltasone) 40 mg PO QDAY [facility] Last Admin: 01/22/18 11:11 Dose: 40 mg Sodium Chloride (Nacl 0.9%) 1,000 ml IR PRN PRN PRN Reason: Wound Care Zolpidem Tartrate (Ambien) 10 mg PO QHS PRN PRN Reason: Insomnia Last Admin: 01/22/18 22:17 Dose: 10 mg Review of Systems Constitutional: weight loss Gastrointestinal: abdominal pain, constipation Exam - Constitutional Vitals: Last Vital Signs Temp 98.7 F 01/23/18 08:04 Pulse 76 01/23/18 08:04 Resp 18 01/23/18 08:04 BP 140/84 01/23/18 08:04 Pulse Ox 98 01/23/18 08:04 General appearance: no acute distress Performance status: 2- selfcare, ambulatory - Neck Neck: supple - Respiratory Respiratory effort: Positive: normal Respiratory: bilateral: CTA - Cardiovascular Rhythm: regular Extremities: No edema - Gastrointestinal General gastrointestinal: Present: soft, other (a midline incision bandaged) Results - Labs lab Results: Laboratory Results - last 24 hr 01/23/18 04:24 WBC 8.6 RBC 3.07 L Hgb 8.7 L Hct 28.1 L MCV 92 MCH 28 MCHC 31 L RDW 16.4 H Plt Count 191 Assessment and Plan Case discussed with Dr. Gordon yesterday. Agree with EGD. Patient will undergo right hemicolectomy in the next few days and we will review the pathology. Next Once he is here, may be getting PET scan to ensure that there is no other area of involvement with the malignancy. Further recommendations once we have the final pathology and once he has had his right hemicolectomy. May need to do Foundation 1 testing on his tumor once we have a better idea about the extent of disease etc.
[2018-01-23] MEDS: IMURAN PO SCH (11:03)
[2018-01-23] MEDS: HEPARIN SUB-Q SCH ×2 (11:03→22:35)
[2018-01-23] MEDS: DELTASONE PO SCH (11:03)
[2018-01-23] MEDS ORDERED: NACL 0.9% 1000 ML 1,000 ML IV SCH (13:00)
[2018-01-23] MEDS ORDERED: DIPRIVAN 10 MG/ML IV ONE (13:49)
--- NOTE | 2018-01-23 13:57 | Anesthesia Consultation ---
Anesthesia Consult and Med Hx Date of service: 01/23/18 - Pulmonary Exam CTA: Yes - Cardiac Exam Cardiac Exam: RRR - Pre-Operative Health Status ASA Pre-Surgery Classification: ASA3 Proposed Anesthetic Plan: MAC - Pre-Anesthesia Comment Pre-Anesthesia Comments: Chronhs disease. SBO. s/p bowel resection 01/18/18. - Pulmonary Hx Smoking: Yes - Cardiovascular System Hx Hypertension: Yes - Other Systems Hx Cancer: Yes
--- NOTE | 2018-01-23 14:21 | Post Operative Note ---
Pre-op diagnosis: Signet Cell CA, Crohns Disease Post-op diagnosis: other (B II, gastritis) Findings: 1. Billroth II anatomy; afferent and efferent limbs cannulated >15cm with no evidence of IBD 2. Moderate gastritis (diffuse erosions and erythema in the fundus and body of the stomach, but no mass); random biopsies taken throughout Procedure: EGD with cold biopsy Anesthesia: MAC Surgeon: DELFINO RUIZ Estimated blood loss: minimal Pathology: list (1. Random stomach biopsies) Specimen disposition: to lab Condition: stable Disposition: floor (Recs: 1. F/U pathology with eventual repeat surgery per Dr Gordon if no stage IV disease.)
--- NOTE | 2018-01-23 15:10 | Progress Note ---
Assessment and Plan 47 yo M s/p Exploratory laparotomy, lysis of adhesions, ileocecectomy with primary anastomosis, POD 6 1. Crohns disease 2. High grade small bowel obstruction 3. Carcinoma of the colon Plan: 1. full liquid diet, protein supplements BID 2. EGD today - gastritis 3. CEA pending 4. onc c/s noted and appreciated 5. Plan is to return to OR on 01/28/18 for exlap, right hemicolectomy, small bowel resection with frozen section. 6. will obtain type and screen preop 7. will do colon prep 01/27 8. PPI 9. I discussed the surgery with the patient. All risks, benefits, and alternatives discussed and all questions questions. The patient understands and consent signed. I will be away 01/24 thru 01/27. The patient is aware. Patient was signed out to Dr. Berrios. Subjective Date of service: 01/23/18 Narrative: Pt seen and examined. No complaints. Having reflux symptoms with some nausea. No emesis. No flatus or BM today. No f/c Objective Vital Signs - 12hr 01/23/18 01/23/18 01/23/18 06:07 08:04 11:42 Temperature 97.4 F L 98.7 F 98.5 F Pulse Rate 88 76 Respiratory 18 18 16 Rate Blood Pressure 129/75 Blood Pressure 116/63 140/84 [Right] O2 Sat by Pulse 99 98 Oximetry 01/23/18 01/23/18 01/23/18 13:00 13:02 14:10 Temperature 99.3 F 99.3 F 98.0 F Pulse Rate 87 87 89 Respiratory 18 18 18 Rate Blood Pressure 144/86 144/86 95/58 Blood Pressure [Right] O2 Sat by Pulse 98 98 95 Oximetry 01/23/18 14:25 Temperature Pulse Rate 77 Respiratory 16 Rate Blood Pressure 100/58 Blood Pressure [Right] O2 Sat by Pulse 96 Oximetry - General physical appearance Narrative Exam: GeN: AAOx3. NAD CV: S1, S2+ Resp: even and unlabored Abd: soft, NT, ND. incision c/d/i with minimal sero sang drainage at lower pole. New dressing applied. Ext: no c/c/e - Labs 01/23/18 04:24 01/22/18 04:38
[2018-01-23] MEDS ORDERED: PERCOCET 5/325 ONE (15:32)
[2018-01-23] MEDS: XANAX ONE ×2 (15:45→16:45)
--- NOTE | 2018-01-23 16:12 | Operative Report ---
PROCEDURE PERFORMED: Esophagogastroduodenoscopy with cold biopsy. 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 POSTOPERATIVE DIAGNOSES: Prior Billroth II surgery and moderate gastritis, but no focal mass was seen. ENDOSCOPIST: Andrés Her MD INSTRUMENT: Skout video endoscope. MEDICATIONS: MAC anesthesia by [facility]. COMPLICATIONS: No apparent complications. ESTIMATED BLOOD LOSS: Minimal. SPECIMENS: 1. Random biopsies of the stomach including the surgical anastomosis. IMPLANTS: None. ASSISTANTS: None. CONDITION AT COMPLETION: Stable. TECHNIQUE: The patient was informed of the risks and benefits of the procedure. He signed the informed consent to proceed. He was placed in left lateral decubitus position. The above sedative medications were given. His vital signs remained stable throughout the procedure. The instrument was advanced from the mouth to the small bowel under direct visualization. At that point, the bowel was insufflated and the endoscope was slowly withdrawn. FINDINGS: 1. Billroth II anatomy; both the afferent and efferent limbs were cannulated for greater than 15 cm with no evidence of active inflammatory bowel disease. 2. Moderate gastritis throughout the middle and distal part of the stomach characterized by erosions and erythema; no focal mass was seen. Subsequently, random biopsies were taken throughout the stomach and multiple passes including the gastric/small bowel anastomosis, and all biopsies were placed in one jar. RECOMMENDATIONS: 1. Follow up on pathology with eventual repeat surgery by ____ if there is no evidence of stage 4 disease. JOB# [id number] MAY/NTS
--- NOTE | 2018-01-23 17:52 | Progress Note ---
Assessment and Plan / SBO, From underlying malignancy - s/p Exploratomy laparotomy, lysis of adhesions, ileocecectomy with primary anastomosis by Dr. Gordon - Biopsy shows underlying malignancy - Patient is tolerating diet, s/p EGD today showed gatritis, no mass - Oncology following, CEA pending - Plan is to return to OR on 01/28/18 for exlap, right hemicolectomy, small bowel resection with frozen section. - will need PET scan following surgery /SIRS with suspected early sepsis due to above, poa: -Ordered lactate levels, blood cultures, IV fluids, Placed on empiric IV Zosyn - Off abx now /Type 2 DM: ssi q6hrs / Crohn's colitis with complications/stricture causing sbo s/p surgery, - hold Imuran due to sbo, changed chronic oral steroids to iv steroids /Hypertension: prn iv labetalol, hold lisinopril until tolerating oral diet better / Abnormal EKG with st, pvc and LAFB: ordered remote tele, ce, troponin, repeat EKG, patient complaining of chest pain / Tobacco/marijuana use: counseling done / DVT prophylaxis: scd for now, stopped sq heparin due to drop in hct /GI prophylaxis: iv protonix Brief history: Patient is a 47 yo man with a history of type 2 DM, hypertension, tobacco dependancy, Crohn's disease followed by Dr. Mix and recurrent SBO, just discharge on 12/28/17 who presents with n/v/abd pains after c-scopy prep. He was evaluated with CT scan of abdomen and pelvis in the ER which showed High- grade mechanical small bowel obstruction proximal to the ileocecal junction where there are diffuse inflammatory changes compatible with history of Crohn's disease. Patient was evaluated by general surgery with the status post exploratory laparotomy, lysis of adhesions, ileocecectomy with primary anastomosis. 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 Patient will be remained admitted for further evaluation and management. Pathology results: Preliminary pathology discussed with Dr. Ontiveros. The specimen shows signet cells with mucinous features consistent with carcinoma. The cancer is through the serosa. 7-8 lymph nodes examined and are negative. The cecum margin is negative for malignancy. The small bowel margin shows signet cells and . ? primary. Hospitalist Physical GEN: illappearing in NAD, AWAKE, ALERT, ORIENTATED x 3 HEENT: NCAT, EOMI, PERRL, OP Clear but dry, ngt removed yesterday NECK: supple, no adenopathy, no thyromegaly, no JVD CVS/HEART: regular tachy, NORMAL S1S2, pulses present bilaterally CHEST/LUNGS: CTA B, Symmetrical chest expansion, good air entry bilaterally GI/Abdomen: soft, large midline surgical incision excision with surgical dressing intact /Bladder: no suprapubic tenderness, no CVA or paraspinal tenderness EXT/Skin: no c/c/e, no obvious rash, capillary refill >2 seconds MSK: FROM x 4 Neuro: CN 2-12 grossly intact, no new focal deficits Psych: Calm Subjective Date of service: 01/23/18 Principal diagnosis: Small bowel obstruction Interval history: Patient was seen and examined. Follow-up on current diagnosis of sbo s/p surgery. Imaging, nursing note, chart, labs and old chart reviewed. s/p EGD today. Objective - Constitutional Vitals: Vital Signs - 12hr 01/23/18 01/23/18 01/23/18 06:07 08:04 11:42 Temperature 97.4 F L 98.7 F 98.5 F Pulse Rate 88 76 Respiratory 18 18 16 Rate Blood Pressure 129/75 Blood Pressure 116/63 140/84 [Right] O2 Sat by Pulse 99 98 Oximetry 01/23/18 01/23/18 01/23/18 13:00 13:02 14:10 Temperature 99.3 F 99.3 F 98.0 F Pulse Rate 87 87 89 Respiratory 18 18 18 Rate Blood Pressure 144/86 144/86 95/58 Blood Pressure [Right] O2 Sat by Pulse 98 98 95 Oximetry 01/23/18 01/23/18 14:25 15:36 Temperature 97.9 F Pulse Rate 77 72 Respiratory 16 18 Rate Blood Pressure 100/58 131/76 Blood Pressure [Right] O2 Sat by Pulse 96 96 Oximetry - Labs CBC & Chem 7: 01/23/18 04:24 01/22/18 04:38 Labs: Abnormal lab results 01/23/18 Range/Units 04:24 RBC 3.07 L (3.65-5.03) M/mm3 Hgb 8.7 L (11.8-15.2) gm/dl Hct 28.1 L (35.5-45.6) % MCHC 31 L (32-34) % RDW 16.4 H (13.2-15.2) %
[2018-01-23] MEDS: AMBIEN PO PRN (22:39)
[2018-01-24] MEDS: PERCOCET 5/325 PO PRN ×4 (04:34→23:17)
[2018-01-24] MEDS: XANAX PO PRN ×2 (08:37→21:38)
[2018-01-24] MEDS: ZOFRAN IV PRN ×3 (08:37→21:37)
--- NOTE | 2018-01-24 10:18 | Progress Note ---
Assessment and Plan - Patient Problems (1) Signet ring cell adenocarcinoma Current Visit: Yes Status: Acute Plan to address problem: 47 yo M s/p Exploratory laparotomy, lysis of adhesions, ileocecectomy with primary anastomosis, POD 7. EGD unremarkable yesterday - bx's sent. 1. Crohns disease 2. High grade small bowel obstruction 3. Carcinoma of the colon Plan: 1. full liquid diet, protein supplements BID (change to clears on Sunday) 2. CEA pending 3. onc c/s noted and appreciated 4. Plan is to return to OR on 01/28/18 for exlap, right hemicolectomy, small bowel resection with frozen section. 5. will obtain type and screen preop 6. will do colon prep 01/27 7. PPI 8. d/c IVF 9. Encouraged ambulation 10. SubQ Heparin DVT prophylaxis Subjective Date of service: 01/24/18 Patient Reports: Positive: no new complaints, tolerating liquids well (having some trouble with heavier foods. ), bowel movement (last night), other (has been ambulating. Back hurts. Incision hurts. ). Negative: blood in stool, nausea, vomiting Objective Vital Signs - 12hr 01/24/18 01/24/18 07:16 08:44 Temperature 98.7 F 98.7 F Pulse Rate 77 Respiratory 18 18 Rate Blood Pressure 130/65 [Right] - General physical appearance well developed, well nourished, no distress, no pain - Respiratory normal expansion, normal respiratory effort - Abdomen soft, bowel sounds normal, not distended, rebound, not guarding, not rigid, wound (mild drainage on the dressing. ) - Integumentary no rash - Psychiatric oriented to time, oriented to person, oriented to place, speech is normal, memory intact - Labs 01/23/18 04:24 01/22/18 04:38
[2018-01-24] MEDS: HEPARIN SUB-Q SCH ×2 (10:40→21:38)
[2018-01-24] MEDS: DELTASONE PO SCH (10:42)
[2018-01-24] MEDS: IMURAN PO SCH (10:43)
--- NOTE | 2018-01-24 12:39 | Hem/Onc Progress Note ---
Assessment and Plan Awaiting EGD biopsies. for r hemicolectomy early next week if biopsy negative. Subjective Date of service: 01/24/18 Interval history: pt feels fair. had bm. egd done findings noted Objective - Constitutional Vitals: Last Vital Signs Temp 98.7 F 01/24/18 08:44 Pulse 77 01/24/18 08:44 Resp 18 01/24/18 08:44 BP 130/65 01/24/18 08:44 Pulse Ox 98 01/23/18 20:00 General appearance: no acute distress Performance status: 3-limited selfcare - Neck Neck: supple - Respiratory Respiratory effort: Positive: normal Respiratory: bilateral: diminished - Cardiovascular Rhythm: regular - Gastrointestinal General gastrointestinal: Present: soft
--- NOTE | 2018-01-24 15:10 | Progress Note ---
Assessment and Plan / SBO, with colon cancer - s/p Exploratomy laparotomy on 01/18 with lysis of adhesions, ileocecectomy with primary anastomosis by Dr. Gordon - Biopsy shows underlying malignancy with signet cell adenocarcinoma with unknown primary - Patient is tolerating diet, s/p EGD 01/23 showed gatritis, no mass - Oncology following, CEA pending - Plan is to return to OR on 01/28/18 for exlap, right hemicolectomy, small bowel resection with frozen section. - will need PET scan following surgery /SIRS with suspected early sepsis due to above, poa: -Ordered lactate levels, blood cultures, IV fluids, Placed on empiric IV Zosyn - Off abx now /Type 2 DM: ssi q6hrs / Crohn's colitis with complications/stricture causing sbo s/p surgery, - started back on Imuran, changed steroids to po /Hypertension: prn iv labetalol, monitor BP closely / Abnormal EKG with st, pvc and LAFB: normal CE, troponin, patient free of chest pain / Tobacco/marijuana use: counseling done / DVT prophylaxis: scd for now, stopped sq heparin due to drop in hct /GI prophylaxis: iv protonix Brief history: Patient is a 47 yo man with a history of type 2 DM, hypertension, tobacco dependancy, Crohn's disease followed by Dr. Mix and recurrent SBO, just discharge on 12/28/17 who presents with n/v/abd pains after c-scopy prep. He was evaluated with CT scan of abdomen and pelvis in the ER which showed High- grade mechanical small bowel obstruction proximal to the ileocecal junction where there are diffuse inflammatory changes compatible with history of Crohn's disease. Patient was evaluated by general surgery with the status post exploratory laparotomy, lysis of adhesions, ileocecectomy with primary anastomosis. 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 Patient will be remained admitted for further evaluation and management. Pathology results: Preliminary pathology discussed with Dr. Ontiveros. The specimen shows signet cells with mucinous features consistent with carcinoma. The cancer is through the serosa. 7-8 lymph nodes examined and are negative. The cecum margin is negative for malignancy. The small bowel margin shows signet cells and . ? primary. Hospitalist Physical GEN: illappearing in NAD, AWAKE, ALERT, ORIENTATED x 3 HEENT: NCAT, EOMI, PERRL, OP Clear but dry, NECK: supple, no adenopathy, no thyromegaly, no JVD CVS/HEART: regular tachy, NORMAL S1S2, pulses present bilaterally CHEST/LUNGS: CTA B, Symmetrical chest expansion, good air entry bilaterally GI/Abdomen: soft, large midline surgical incision excision with surgical dressing intact /Bladder: no suprapubic tenderness, no CVA or paraspinal tenderness EXT/Skin: no c/c/e, no obvious rash, capillary refill >2 seconds MSK: FROM x 4 Neuro: CN 2-12 grossly intact, no new focal deficits Psych: Calm Subjective Date of service: 01/24/18 Principal diagnosis: Small bowel obstruction Interval history: Patient was seen and examined. No new issue. Planned for surgery on Sunday, c/o anxiety Objective - Constitutional Vitals: Vital Signs - 12hr 01/24/18 01/24/18 01/24/18 07:16 08:44 11:36 Temperature 98.7 F 98.7 F 98.6 F Pulse Rate 77 73 Respiratory 18 18 18 Rate Blood Pressure 130/65 [Right] O2 Sat by Pulse 96 Oximetry 01/24/18 11:37 Temperature Pulse Rate 78 Respiratory Rate Blood Pressure [Right] O2 Sat by Pulse 96 Oximetry - Labs CBC & Chem 7: 01/23/18 04:24 01/22/18 04:38
[2018-01-24] MEDS: THERAGRAN-M Tab PO SCH (16:50)
--- NOTE | 2018-01-24 17:12 | Gastroenterology Progress Note ---
Assessment and Plan - Patient Problems (1) Crohn's disease of small intestine with intestinal obstruction Current Visit: Yes Status: Acute Plan to address problem: - Hx of CD > 15 years, with prior use of Remicade (off x several years due to insurance). - Hx of small bowel surgery for both obstruction and fistula (separate surgeries ). - No role for Humira/remicade or other significant immunosuppressant at present until status of carcinoma is determined. (2) Signet ring cell adenocarcinoma Current Visit: Yes Status: Acute Plan to address problem: - Signet ring adenocarcinoma by preliminary Pathology report of small bowel stricture. - EGD 01/23 negative for primary signet ring in stomach (random biopsies throughout). - OK to proceed with resection/as per surgery; will sign off for now, but will follow final pathology in the chart. Subjective Date of service: 01/24/18 Principal diagnosis: Crohns, Bowel cancer Interval history: The pathology of the recent EGD was discussed with the patient. There is no evidence of signet-ring cancer. He has had no N/V but admits appetite is still poor. No fevers, chills, or productive cough. Objective - Constitutional Vitals: Temp Pulse Resp BP Pulse Ox 98.6 F 78 18 130/65 97 01/24/18 11:36 01/24/18 11:37 01/24/18 11:36 01/24/18 08:44 01/24/18 11:37 General appearance: no acute distress - Neck Neck: supple, normal ROM - Respiratory Respiratory effort: normal Respiratory: bilateral: CTA - Cardiovascular Rhythm: regular Heart Sounds: Present: S1 & S2 - Gastrointestinal General gastrointestinal: Present: soft, tender (mild/no change), non-distended - Labs CBC & Chem 7: 01/23/18 04:24 01/22/18 04:38
[2018-01-24] MEDS: AMBIEN PO PRN (23:13)
[2018-01-25] MEDS: PERCOCET 5/325 PO PRN ×4 (05:10→23:10)
--- NOTE | 2018-01-25 09:47 | Hem/Onc Progress Note ---
Assessment and Plan Patient to get right hemicolectomy on Sunday. We will follow. Patient still on Imuran and I will check with Dr. roberts if he wants him to continue it for now. Subjective Date of service: 01/25/18 Interval history: pt feels fair. had bm. egd done findings noted. EGD stomach biopsies negative for malignancy as per Dr. roberts Objective - Constitutional Vitals: Last Vital Signs Temp 98.6 F 01/25/18 07:27 Pulse 85 01/25/18 07:27 Resp 20 01/25/18 07:27 BP 133/83 01/25/18 07:27 Pulse Ox 98 01/25/18 07:27 Pain Intensity (0-10): denies any pain Performance status: 2- selfcare, ambulatory - Neck Neck: supple - Cardiovascular Rhythm: regular - Gastrointestinal General gastrointestinal: Present: soft - Labs Lab Results: Laboratory Results - last 24 hr 01/25/18 08:10 POC Glucose 100
[2018-01-25] MEDS: DELTASONE PO SCH (10:18)
[2018-01-25] MEDS: THERAGRAN-M Tab PO SCH (10:18)
[2018-01-25] MEDS: IMURAN PO SCH (10:19)
--- NOTE | 2018-01-25 11:02 | Progress Note ---
Assessment and Plan - Patient Problems (1) Signet ring cell adenocarcinoma Current Visit: Yes Status: Acute Plan to address problem: 47 yo M s/p Exploratory laparotomy, lysis of adhesions, ileocecectomy with primary anastomosis, POD 8. EGD unremarkable. Bx neg for malignancy. 1. Crohns disease 2. High grade small bowel obstruction 3. Carcinoma of the colon Plan: 1. full liquid diet, protein supplements BID (change to clears on Sunday) 2. CEA pending 3. onc c/s noted and appreciated 4. Plan is to return to OR on 01/28/18 for exlap, right hemicolectomy, small bowel resection with frozen section. 5. will obtain type and screen preop 6. will do colon prep 01/27 7. PPI 8. Encouraged ambulation 9. SubQ Heparin DVT prophylaxis - adjusted schedule to TID based on guidelines. Subjective Date of service: 01/25/18 Patient Reports: Positive: no new complaints Objective Vital Signs - 12hr 01/25/18 01/25/18 01/25/18 00:23 04:47 07:27 Temperature 97.9 F 97.6 F 98.6 F Pulse Rate 74 80 87 Respiratory 18 18 20 Rate Blood Pressure 159/89 120/78 Blood Pressure 133/83 [Right] O2 Sat by Pulse 100 98 98 Oximetry - General physical appearance no distress - Respiratory normal expansion, normal respiratory effort - Abdomen soft, not tender, wound (Intact. minimal drainage. No erythema. ) - Integumentary no rash - Labs 01/23/18 04:24 01/22/18 04:38
[2018-01-25] MEDS: ZOFRAN IV PRN ×3 (11:21→23:10)
[2018-01-25] MEDS: HEPARIN SUB-Q SCH ×2 (14:48→23:12)
--- NOTE | 2018-01-25 14:57 | Progress Note ---
Assessment and Plan / SBO, with colon cancer - s/p Exploratomy laparotomy on 01/18 with lysis of adhesions, ileocecectomy with primary anastomosis by Dr. Gordon - Biopsy shows underlying malignancy with signet cell adenocarcinoma with unknown primary - Patient is tolerating diet, s/p EGD 01/23 showed gatritis, no mass - Oncology following, CEA pending - Plan is to return to OR on 01/28/18 for exlap, right hemicolectomy, small bowel resection with frozen section. - will need PET scan following surgery /SIRS with suspected early sepsis due to above, poa: -Ordered lactate levels, blood cultures, IV fluids, Placed on empiric IV Zosyn - Off abx now /Type 2 DM: SSI q6hrs / Crohn's colitis with complications/stricture causing sbo s/p surgery, - started back on Imuran, changed steroids to po /Hypertension: prn iv labetalol, monitor BP closely / Abnormal EKG with st, pvc and LAFB: normal CE, troponin, patient free of chest pain / Tobacco/marijuana use: counseling done / DVT prophylaxis: scd for now, stopped sq heparin due to drop in hct /GI prophylaxis: iv protonix Brief history: Patient is a 47 yo man with a history of type 2 DM, hypertension, tobacco dependancy, Crohn's disease followed by Dr. Mix and recurrent SBO, just discharge on 12/28/17 who presents with n/v/abd pains after c-scopy prep. He was evaluated with CT scan of abdomen and pelvis in the ER which showed High- grade mechanical small bowel obstruction proximal to the ileocecal junction where there are diffuse inflammatory changes compatible with history of Crohn's disease. Patient was evaluated by general surgery with the status post exploratory laparotomy, lysis of adhesions, ileocecectomy with primary anastomosis. 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 Patient will be remained admitted for further evaluation and management. Pathology results: Preliminary pathology shows signet cells with mucinous features consistent with carcinoma. The cancer is through the serosa. 7-8 lymph nodes examined and are negative. The cecum margin is negative for malignancy. The small bowel margin shows signet cells and . ?primary. Hospitalist Physical GEN: illappearing in NAD, AWAKE, ALERT, ORIENTATED x 3 HEENT: NCAT, EOMI, PERRL, OP Clear but dry, NECK: supple, no adenopathy, no thyromegaly, no JVD CVS/HEART: regular tachy, NORMAL S1S2, pulses present bilaterally CHEST/LUNGS: CTA B, Symmetrical chest expansion, good air entry bilaterally GI/Abdomen: soft, large midline surgical incision excision with surgical dressing intact /Bladder: no suprapubic tenderness, no CVA or paraspinal tenderness EXT/Skin: no c/c/e, no obvious rash, capillary refill >2 seconds MSK: FROM x 4 Neuro: CN 2-12 grossly intact, no new focal deficits Psych: Calm Subjective Date of service: 01/25/18 Principal diagnosis: Small bowel obstruction Interval history: Patient was seen and examined. No new issue. Planned for surgery on Sunday, doing well denies any abdominal pain Objective - Constitutional Vitals: Vital Signs - 12hr 01/25/18 01/25/18 01/25/18 04:47 07:27 11:56 Temperature 97.6 F 98.6 F 98.0 F Pulse Rate 80 87 75 Respiratory 18 20 20 Rate Blood Pressure 120/78 Blood Pressure 133/83 111/61 [Right] O2 Sat by Pulse 98 98 97 Oximetry 01/25/18 12:20 Temperature Pulse Rate Respiratory 20 Rate Blood Pressure Blood Pressure [Right] O2 Sat by Pulse Oximetry - Labs CBC & Chem 7: 01/23/18 04:24 01/22/18 04:38
[2018-01-25] MEDS: AMBIEN PO PRN (23:11)
[2018-01-26] MEDS: PERCOCET 5/325 PO PRN ×3 (06:06→17:46)
[2018-01-26] MEDS: HEPARIN SUB-Q SCH ×3 (06:07→21:16)
[2018-01-26] MEDS: ZOFRAN IV PRN ×2 (06:11→12:05)
[2018-01-26] MEDS: IMURAN PO SCH (10:51)
[2018-01-26] MEDS: THERAGRAN-M Tab PO SCH (10:51)
[2018-01-26] MEDS: DELTASONE PO SCH (10:51)
--- NOTE | 2018-01-26 12:49 | Progress Note ---
Assessment and Plan / SBO, with colon cancer - s/p Exploratomy laparotomy on 01/18 with lysis of adhesions, ileocecectomy with primary anastomosis by Dr. 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 - will need PET scan following surgery /SIRS with suspected early sepsis due to above, poa: -Ordered lactate levels, blood cultures, IV fluids, Placed on empiric IV Zosyn - Off abx now /Type 2 DM: SSI q6hrs / Crohn's colitis with complications/stricture causing sbo s/p surgery, - started back on Imuran, changed steroids to po /Hypertension: prn iv labetalol, monitor BP closely / Abnormal EKG with st, pvc and LAFB: normal CE, troponin, patient free of chest pain / Tobacco/marijuana use: counseling done / DVT prophylaxis: scd for now, stopped sq heparin due to drop in hct /GI prophylaxis: iv protonix Brief history: Patient is a 47 yo man with a history of type 2 DM, hypertension, tobacco dependancy, Crohn's disease followed by Dr. Mix and recurrent SBO, just discharge on 12/28/17 who presents with n/v/abd pains after c-scopy prep. He was evaluated with CT scan of abdomen and pelvis in the ER which showed High- grade mechanical small bowel obstruction proximal to the ileocecal junction where there are diffuse inflammatory changes compatible with history of Crohn's disease. Patient was evaluated by general surgery with the status post exploratory laparotomy, lysis of adhesions, ileocecectomy with primary anastomosis. 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 Patient will be remained admitted for further evaluation and management. Pathology results: Preliminary pathology shows signet cells with mucinous features consistent with carcinoma. The cancer is through the serosa. 7-8 lymph nodes examined and are negative. The cecum margin is negative for malignancy. The small bowel margin shows signet cells and . ?primary. Hospitalist Physical GEN: illappearing in NAD, AWAKE, ALERT, ORIENTATED x 3 HEENT: NCAT, EOMI, PERRL, OP Clear but dry, NECK: supple, no adenopathy, no thyromegaly, no JVD CVS/HEART: regular tachy, NORMAL S1S2, pulses present bilaterally CHEST/LUNGS: CTA B, Symmetrical chest expansion, good air entry bilaterally GI/Abdomen: soft, large midline surgical incision excision with surgical dressing intact /Bladder: no suprapubic tenderness, no CVA or paraspinal tenderness EXT/Skin: no c/c/e, no obvious rash, capillary refill >2 seconds MSK: FROM x 4 Neuro: CN 2-12 grossly intact, no new focal deficits Psych: Calm Subjective Date of service: 01/26/18 Principal diagnosis: Small bowel obstruction Interval history: Patient was seen and examined. No new issue. Planned for surgery on Sunday, doing well denies any abdominal pain Objective - Constitutional Vitals: Vital Signs - 12hr 01/26/18 01/26/18 01/26/18 04:07 06:06 07:02 Temperature 98.4 F 98.2 F Pulse Rate 77 78 Respiratory 18 18 18 Rate Blood Pressure 151/93 132/63 O2 Sat by Pulse 98 99 Oximetry - Labs CBC & Chem 7: 01/23/18 04:24 01/22/18 04:38
--- NOTE | 2018-01-26 13:59 | Progress Note ---
Assessment and Plan - Patient Problems (1) Signet ring cell adenocarcinoma Current Visit: Yes Status: Acute Plan to address problem: 47 yo M s/p Exploratory laparotomy, lysis of adhesions, ileocecectomy with primary anastomosis, POD 9. EGD unremarkable. Bx neg for malignancy. 1. Crohns disease 2. High grade small bowel obstruction 3. Carcinoma of the colon Plan: 1. full liquid diet, protein supplements BID (change to clears on Sunday) 2. CEA pending 3. onc c/s noted and appreciated 4. Plan is to return to OR on 01/28/18 for exlap, right hemicolectomy, small bowel resection with frozen section. 5. will obtain type and screen preop 6. will do colon prep 01/27 7. PPI 8. Encouraged ambulation 9. SubQ Heparin DVT prophylaxis 10. MOM today per patient request Subjective Date of service: 01/26/18 Patient Reports: Positive: no new complaints (would like a laxative today) Objective Vital Signs - 12hr 01/26/18 01/26/18 01/26/18 04:07 06:06 07:02 Temperature 98.4 F 98.2 F Pulse Rate 77 78 Respiratory 18 18 18 Rate Blood Pressure 151/93 132/63 O2 Sat by Pulse 98 99 Oximetry 01/26/18 11:42 Temperature 98.1 F Pulse Rate 85 Respiratory 18 Rate Blood Pressure 118/81 O2 Sat by Pulse 98 Oximetry - General physical appearance no distress, no pain - Eyes normal occular movement - Respiratory normal expansion, normal respiratory effort - Abdomen soft, not distended, wound (minimal drainage) - Labs 01/23/18 04:24 01/22/18 04:38
[2018-01-26] MEDS ORDERED: MILK OF MAGNESIA PO ONE (14:00)
[2018-01-26] MEDS: AMBIEN PO PRN (21:13)
[2018-01-27] MEDS: PERCOCET 5/325 PO PRN ×4 (00:09→18:01)
[2018-01-27] MEDS: HEPARIN SUB-Q SCH ×3 (06:13→21:06)
[2018-01-27 06:58] LABS: Hemoglobin 8.9 gm/dl (11.8-15.2); Mean Corpuscular HGB Conc 33 % (32-34); Mean Corpuscular Hemoglobin 29 pg (28-32); Mean Corpuscular Volume 87 fl (84-94); Platelet Count 290 K/mm3 (140-440); Red Blood Count 3.11 M/mm3 (3.65-5.03); Red Cell Distribution Width 16.6 % (13.2-15.2)
[2018-01-27 07:00] LABS: BUN/Creatinine Ratio 20; Blood Urea Nitrogen 12 mg/dL (9-20); Hemolysis Index 0
[2018-01-27] MEDS ORDERED: NACL 0.9% 1000 ML 1,000 ML IV SCH (09:00)
--- NOTE | 2018-01-27 09:41 | Progress Note ---
Assessment and Plan - Patient Problems (1) Signet ring cell adenocarcinoma Current Visit: Yes Status: Acute Plan to address problem: 47 yo M s/p Exploratory laparotomy, lysis of adhesions, ileocecectomy with primary anastomosis, POD 10. EGD unremarkable. Bx neg for malignancy. 1. Crohns disease 2. High grade small bowel obstruction 3. Carcinoma of the colon Plan: 1. clears today. NPO after midnight 2. CEA pending 3. onc c/s noted and appreciated 4. Plan is to return to OR on 01/28/18 for exlap, right hemicolectomy, small bowel resection with frozen section. 5. type and screen done today. Labs ok. 6. colon prep today with MOM 7. PPI 8. Encouraged ambulation 9. SubQ Heparin DVT prophylaxis Subjective Date of service: 01/27/18 Patient Reports: Positive: no new complaints, bowel movement (had 3-4 movements yesterday without MOM. Had some solid component). Negative: nausea, vomiting, fever Objective Vital Signs - 12hr 01/26/18 01/26/18 01/27/18 23:58 23:59 00:03 Temperature 98.1 F Pulse Rate 75 80 Respiratory 20 Rate Blood Pressure 125/70 O2 Sat by Pulse 98 98 Oximetry 01/27/18 04:25 Temperature 98.3 F Pulse Rate 69 Respiratory 20 Rate Blood Pressure 132/77 O2 Sat by Pulse 98 Oximetry - General physical appearance no distress, no pain - Respiratory normal expansion, normal respiratory effort - Abdomen soft, not tender, bowel sounds normal, not rigid, wound (clean), other ( dressing dry) - Integumentary no rash - Labs 01/27/18 05:39 01/27/18 05:39 Diabetes panel 01/27/18 Range/Units 05:39 Sodium 135 L (137-145) mmol/L Potassium 3.8 (3.6-5.0) mmol/L Chloride 98.5 (98-107) mmol/L Carbon Dioxide 27 (22-30) mmol/L BUN 12 (9-20) mg/dL Creatinine 0.6 L (0.8-1.5) mg/dL Glucose 82 (75-100) mg/dL Calcium 8.0 L (8.4-10.2) mg/dL Calcium panel 01/27/18 Range/Units 05:39 Calcium 8.0 L (8.4-10.2) mg/dL Phosphorus 3.00 (2.5-4.5) mg/dL Pituitary panel 01/27/18 Range/Units 05:39 Sodium 135 L (137-145) mmol/L Potassium 3.8 (3.6-5.0) mmol/L Chloride 98.5 (98-107) mmol/L Carbon Dioxide 27 (22-30) mmol/L BUN 12 (9-20) mg/dL Creatinine 0.6 L (0.8-1.5) mg/dL Glucose 82 (75-100) mg/dL Calcium 8.0 L (8.4-10.2) mg/dL Adrenal panel 01/27/18 Range/Units 05:39 Sodium 135 L (137-145) mmol/L Potassium 3.8 (3.6-5.0) mmol/L Chloride 98.5 (98-107) mmol/L Carbon Dioxide 27 (22-30) mmol/L BUN 12 (9-20) mg/dL Creatinine 0.6 L (0.8-1.5) mg/dL Glucose 82 (75-100) mg/dL Calcium 8.0 L (8.4-10.2) mg/dL
[2018-01-27] MEDS: THERAGRAN-M Tab PO SCH (10:51)
[2018-01-27] MEDS: DELTASONE PO SCH (10:51)
[2018-01-27] MEDS: MILK OF MAGNESIA PO SCH ×2 (10:51→21:06)
[2018-01-27] MEDS: IMURAN PO SCH (10:51)
[2018-01-27] MEDS: ZOFRAN IV PRN ×2 (12:03→18:01)
--- NOTE | 2018-01-27 13:11 | Progress Note ---
Assessment and Plan / SBO, with colon cancer - s/p Exploratomy laparotomy on 01/18 with lysis of adhesions, ileocecectomy with primary anastomosis by Dr. 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 - Oncology following, will need PET scan following surgery /SIRS with suspected early sepsis due to above, poa: -Ordered lactate levels, blood cultures, IV fluids, Placed on empiric IV Zosyn - Off abx now /Type 2 DM: SSI q6hrs / Crohn's colitis with complications/stricture causing sbo s/p surgery, - started back on Imuran, changed steroids to po /Hypertension: prn iv labetalol, monitor BP closely / Abnormal EKG with st, pvc and LAFB: normal CE, troponin, patient free of chest pain / Tobacco/marijuana use: counseling done / DVT prophylaxis: scd for now, stopped sq heparin due to drop in hct /GI prophylaxis: iv protonix Brief history: Patient is a 47 yo man with a history of type 2 DM, hypertension, tobacco dependancy, Crohn's disease followed by Dr. Mix and recurrent SBO, just discharge on 12/28/17 who presents with n/v/abd pains after c-scopy prep. He was evaluated with CT scan of abdomen and pelvis in the ER which showed High- grade mechanical small bowel obstruction proximal to the ileocecal junction where there are diffuse inflammatory changes compatible with history of Crohn's disease. Patient was evaluated by general surgery with the status post exploratory laparotomy, lysis of adhesions, ileocecectomy with primary anastomosis. 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 Patient will be remained admitted for further evaluation and management. Pathology results: Preliminary pathology shows signet cells with mucinous features consistent with carcinoma. The cancer is through the serosa. 7-8 lymph nodes examined and are negative. The cecum margin is negative for malignancy. The small bowel margin shows signet cells and . ?primary. Hospitalist Physical GEN: illappearing in NAD, AWAKE, ALERT, ORIENTATED x 3 HEENT: NCAT, EOMI, PERRL, OP Clear but dry, NECK: supple, no adenopathy, no thyromegaly, no JVD CVS/HEART: regular tachy, NORMAL S1S2, pulses present bilaterally CHEST/LUNGS: CTA B, Symmetrical chest expansion, good air entry bilaterally GI/Abdomen: soft, large midline surgical incision excision with surgical dressing intact /Bladder: no suprapubic tenderness, no CVA or paraspinal tenderness EXT/Skin: no c/c/e, no obvious rash, capillary refill >2 seconds MSK: FROM x 4 Neuro: CN 2-12 grossly intact, no new focal deficits Psych: Calm Subjective Date of service: 01/27/18 Principal diagnosis: Small bowel obstruction Objective - Constitutional Vitals: Vital Signs - 12hr 01/27/18 01/27/18 01/27/18 04:25 06:53 11:15 Temperature 98.3 F 98.5 F 98.3 F Pulse Rate 69 70 78 Respiratory 20 20 16 Rate Blood Pressure 132/77 129/79 133/80 O2 Sat by Pulse 98 97 99 Oximetry - Labs CBC & Chem 7: 01/27/18 05:39 01/27/18 05:39 Labs: Abnormal lab results 01/27/18 01/27/18 Range/Units 05:39 05:39 RBC 3.11 L (3.65-5.03) M/mm3 Hgb 8.9 L (11.8-15.2) gm/dl Hct 27.0 L (35.5-45.6) % RDW 16.6 H (13.2-15.2) % Sodium 135 L (137-145) mmol/L Creatinine 0.6 L (0.8-1.5) mg/dL Calcium 8.0 L (8.4-10.2) mg/dL
[2018-01-27] MEDS: AMBIEN PO PRN (21:06)
[2018-01-27] MEDS ORDERED: D5W/0.45% NACL/KCL 20 MEQ 20 MEQ/1,000 ML BAG IV SCH (23:00)
[2018-01-28] MEDS: PERCOCET 5/325 PO PRN ×2 (00:29→05:13)
[2018-01-28] MEDS: HEPARIN SUB-Q SCH ×2 (07:18→22:59)
[2018-01-28] MEDS ORDERED: SUBLIMAZE ONE (07:37)
[2018-01-28] MEDS ORDERED: DIPRIVAN 10 MG/ML IV ONE (07:37)
[2018-01-28] MEDS ORDERED: ZOFRAN IV PRN (07:58)
[2018-01-28] MEDS ORDERED: DEMEROL IV PRN (07:58)
[2018-01-28] MEDS ORDERED: VERSED IV NR (08:00)
[2018-01-28] MEDS ORDERED: LACTATED RINGERS 1,000 ML IV SCH (08:00)
--- NOTE | 2018-01-28 08:36 | Anesthesia Day of Surgery ---
Anesthesia Day of Surgery - Day of Surgery Patient Examined: Yes Patient H&P Reviewed: Yes Patient is NPO: Yes
[2018-01-28] MEDS: NACL 0.9% 1000 ML 1,000 ML IV SCH (09:20)
--- NOTE | 2018-01-28 09:29 | Anesthesia Day of Surgery ---
Anesthesia Day of Surgery - Day of Surgery Patient Examined: Yes Patient H&P Reviewed: Yes Patient is NPO: Yes
--- NOTE | 2018-01-28 09:36 | Event Note ---
Date: 01/28/18 Preop note: 47 yo M with hx of Crohns disease who recently underwent exlap, ileocecectomy, BINDU for high grade small bowel obstruction secondary to Crohns stricture. Pathology showed carcinoma of the specimen with + small bowel margins. The patient is returning to the OR for Exploratory laparotomy, small bowel resection , right hemicolectomy, possible ostomy, frozen section. All risks and benefits discussed and the patient is consented. He is NPO, on IVF . There is an active type and screen. He underwent a colon prep yesterday. He will receive preoperative ancef and flagyl IV. All labs reviewed. He is on SQ heparin for DVT prophylaxis.
[2018-01-28] MEDS ORDERED: ANCEF/STERILE WATER 2 GM/20 ML IV NR (10:00)
[2018-01-28] MEDS ORDERED: FLAGYL 500 MG/100 ML 500 MG/100 ML BAG IV NR (10:00)
[2018-01-28] MEDS ORDERED: QUELICIN ONE (10:22)
[2018-01-28] MEDS ORDERED: XYLOCAINE MPF 2% ONE (10:22)
[2018-01-28] MEDS ORDERED: ZEMURON IV ONE (10:23)
[2018-01-28] MEDS ORDERED: DILAUDID ONE ×2 (10:25→14:07)
[2018-01-28] MEDS ORDERED: NACL 0.9% IR ONE ×2 (10:26)
[2018-01-28] MEDS ORDERED: NACL 0.9% 1000 ML 1,000 ML ONE ×5 (10:57→14:26)
[2018-01-28] MEDS ORDERED: NEO SYNEPHRINE ONE (10:57)
[2018-01-28] MEDS ORDERED: NACL 0.9% 500 ML 500 ML IV NR (12:15)
--- NOTE | 2018-01-28 14:25 | Progress Note ---
Assessment and Plan / SBO, with colon cancer - s/p Exploratomy laparotomy on 01/18 with lysis of adhesions, ileocecectomy with primary anastomosis by Dr. 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 - Oncology following, will need PET scan following surgery /SIRS with suspected early sepsis due to above: -Ordered lactate levels, blood cultures, IV fluids, Placed on empiric IV Zosyn - Off abx now /Type 2 DM: SSI q6hrs / Crohn's colitis with complications/stricture causing sbo s/p surgery, - on Imuran and steroid, need to place back following surgery /Hypertension: prn iv labetalol, monitor BP closely / Abnormal EKG with st, pvc and LAFB: normal CE, troponin, patient free of chest pain / Tobacco/marijuana use: counseling done / DVT prophylaxis: scd for now, stopped sq heparin due to drop in hct /GI prophylaxis: iv protonix Brief history: Patient is a 47 yo man with a history of type 2 DM, hypertension, tobacco dependancy, Crohn's disease followed by Dr. Mix and recurrent SBO, just discharge on 12/28/17 who presents with n/v/abd pains after c-scopy prep. He was evaluated with CT scan of abdomen and pelvis in the ER which showed High- grade mechanical small bowel obstruction proximal to the ileocecal junction where there are diffuse inflammatory changes compatible with history of Crohn's disease. Patient was evaluated by general surgery with the status post exploratory laparotomy, lysis of adhesions, ileocecectomy with primary anastomosis. 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 Patient remained admitted for further evaluation and management. Pathology results: Preliminary pathology shows signet cells with mucinous features consistent with carcinoma. The cancer is through the serosa. 7-8 lymph nodes examined and are negative. The cecum margin is negative for malignancy. The small bowel margin shows signet cells and . ?primary. Hospitalist Physical GEN: illappearing in NAD, AWAKE, ALERT, ORIENTATED x 3 HEENT: NCAT, EOMI, PERRL, OP Clear but dry, NECK: supple, no adenopathy, no thyromegaly, no JVD CVS/HEART: regular tachy, NORMAL S1S2, pulses present bilaterally CHEST/LUNGS: CTA B, Symmetrical chest expansion, good air entry bilaterally GI/Abdomen: soft, large midline surgical incision excision with surgical dressing intact /Bladder: no suprapubic tenderness, no CVA or paraspinal tenderness EXT/Skin: no c/c/e, no obvious rash, capillary refill >2 seconds MSK: FROM x 4 Neuro: CN 2-12 grossly intact, no new focal deficits Psych: Calm Subjective Date of service: 01/28/18 Principal diagnosis: Small bowel obstruction Interval history: Patient was seen and examined. No new issue. Planned for surgery today, Objective - Constitutional Vitals: Vital Signs - 12hr 01/28/18 01/28/18 01/28/18 05:19 08:03 08:22 Temperature 97.7 F 98.4 F 97.9 F Pulse Rate 69 66 69 Respiratory 18 18 16 Rate Blood Pressure 124/80 123/74 Blood Pressure 142/87 [Right] O2 Sat by Pulse 100 99 100 Oximetry 01/28/18 08:57 Temperature 97.9 F Pulse Rate 69 Respiratory 16 Rate Blood Pressure 123/74 Blood Pressure [Right] O2 Sat by Pulse 100 Oximetry - Labs CBC & Chem 7: 01/28/18 22:30 01/27/18 05:39 Labs: Abnormal lab results 01/27/18 Range/Units 05:30 Crossmatch See Detail
[2018-01-28] MEDS ORDERED: DILAUDID IV PRN (14:43)
--- NOTE | 2018-01-28 14:54 | Post Operative Note ---
Pre-op diagnosis: colon carcinoma, Crohns disease Post-op diagnosis: same Findings: Large hole in ileocolic anastamosis with dense adhesions from anastamosis to abdominal side wall and retroperitoneum. Procedure: exploratory laparotomy, lysis of adhesions, small bowel resection, right hemicolectomy, partial omentectomy, creation of end ileostomy and mucus fistula , application of wound vac Anesthesia: JT Surgeon: MICHAEL BOLAÑOS Microbiology Soil Scientist: FELICITAS BLAND Estimated blood loss: 50-100ml Pathology: list (1. portion of small bowel (ileum), 2. right colon, 3. metalic foreign object, 4. omentum) Specimen disposition: to lab Condition: stable Disposition: ICU
[2018-01-28] MEDS: DILAUDID IV PRN ×5 (15:00→20:11)
--- NOTE | 2018-01-28 16:56 | Operative Report ---
Operative Report Operative Report: Date: 01/28/18 Initialization Date: 01/28/18 14:50 Pre-op diagnosis: colon carcinoma, Crohns disease Post-op diagnosis: same Findings: Large hole in ileocolic anastamosis with dense adhesions from anastamosis to abdominal side wall and retroperitoneum. Procedure: Exploratory laparotomy, lysis of adhesions, small bowel resection, right hemicolectomy, partial omentectomy, creation of end ileostomy and mucus fistula , application of wound vac Anesthesia: JT Surgeon: MICAHEL BOLAÑOS Slot Floorperson: FELICITAS BLAND Estimated blood loss: 50-100ml Fluids: 5 L crystalloid, 2 units PRBC Urine output: 900 mL Pathology: list (1. portion of small bowel (ileum), 2. right colon, 3. metallic foreign object, 4. omentum) Specimen disposition: to lab Condition: stable Disposition: ICU HPI an indication: Patient 47-year-old male with past medical history of Crohn' s disease who underwent a exploratory laparotomy and ileocecectomy on 2017 for high-grade small bowel obstruction. The pathology from this operation showed the specimen contained carcinoma with positive small bowel margins. It was therefore decided to return to the operating room to perform a formal cancer operation which included an exploratory laparotomy, small bowel resection with frozen sections, right hemicolectomy, possible ostomy. All risks , alternatives, benefits of the surgery were discussed with the patient and he was in agreement to proceed. Prior to surgery, he was tolerating a regular diet and his nutrition was optimized. Procedure in detail: She was identified in the preoperative area, taken back to the operating room, placed on the operating room table in supine position. After anesthesia was induced a Oropeza catheter was sterilely placed by the circulating nurse. The abdomen was then prepped and draped in usual sterile fashion and timeout was performed. The midline incision sola were removed and the fascial sutures cut out. The abdomen was opened and adhesions from the small bowel to the abdominal wall were encountered and taken down bluntly using finger dissection. A Bookwalter retractor was then placed in order to retract the abdominal wall. The area of the anastomosis was encountered with adhesions from the small bowel to this area. The small bowel adhesions were gently taken down using blunt dissection and there was immediate spillage of stool from the area of the anastomosis. A large hole was seen in the anastomosis at the common enterotomy. This was whipstitch closed with a silk suture. The ileocolic anastomosis was densely adhered to the abdominal sidewall and retroperitoneum. At this point it was decided to perform the small bowel resection proximal to the anastomosis in order to obtain specimen for frozen section. A window was created in the mesentery of the small bowel approximately 10 cm proximal to the anastomosis, at an area of grossly normal- appearing bowel. The small bowel was transected using a BALJINDER 75 mm blue load stapler. Mesentery was ligated and transected using the Enseal. The specimen was passed off the table and sent to pathology for frozen section, with the proximal margin marked with a silk suture. Intraoperative discussion with the pathologist showed that there was no cancer in the specimen. We then turned our attention to the distal dissection. The transverse colon was visualized and from the omentum in an avascular plane using electrocautery. During this mobilization, a small metallic foreign object was seen incorporated into the posterior aspect of the upper omentum near the stomach. This was removed and passed off the table as specimen. Once the transverse colon and hepatic flexure were mobilized a window was made in the transverse colon mesentery to the right of the takeoff of the middle colic artery. The transverse colon was then transected using a BALJINDER 75 mm blue load stapler. The mesentery was ligated and transected meticulously using the Enseal and hemostasis achieved along the way. We then encountered our anastomosis. The dissection was undertaken medially to laterally in order to free up the dense adhesions. This was done bluntly using finger dissection. Bleeding encountered from small vessels was controlled with suture ligature using 3-0 silk suture and hemostasis carefully achieved. Once the specimen was freed, the remaining mesentery was taken close to the root using the Enseal. The mesentery was very edematous at the area of the anastomosis. The specimen was passed off the table. The abdomen was irrigated with multiple liters of warm saline. The small bowel was ran from the distal margin proximally to the GJ anastomosis. The small bowel was intact with no injury identified. The wound bed was inspected and there was no evidence of bleeding. The patient did require administration of small doses of pressors and 2 units of PRBCs during the surgery. Due to his poor nutritional status, his standing doses of anti-inflammatory medications and steroids for Crohn's disease, and evidence of poor wound healing, the decision was made to create an ileostomy and mucous fistula. The abdominal wall was marked appropriately for placement of ileostomy and mucous fistula. We first turned our attention to creating the ileostomy. A circular incision was created in the skin in the right lower abdomen using electrocautery and skin removed. Dissection was carried down through the skin and subcutaneous tissue using electrocautery until the fascia was encountered. A cruciate incision was made in the fascia and the muscle was then spread in the direction of its fibers. A cruciate incision was then made in the peritoneum over 2 gloved fingers, and was made wide enough in order to accommodate 2 gloved fingers. The distal small bowel was brought through this incision and the mesentery was ensured to be straight, without twisting. A circular incision was created in the skin in the left upper abdomen using electrocautery and skin removed. Dissection was carried down through the skin and subcutaneous tissue using electrocautery until the anterior fascia was encountered. A cruciate incision was made in the fascia and the muscle was then spread in the direction of its fibers. A cruciate incision was then made in the posterior fascia and peritoneum peritoneum over 2 gloved fingers, and was made wide enough in order to accommodate 2 gloved fingers. An incision was made through the omentum in order to accommodate the transverse colon in order to bring the stapled end through the left upper quadrant incision. The transverse colon mesentery was examined and was ensured to be straight without twisting. The omentum was examined, and the distal portion did appear ischemic and this was ligated and transected using the Enseal. This portion of the omentum was passed off the table as a specimen. The NG tube was palpated and was in the stomach. The liver was palpated and there was no evidence of gross disease. We then turned our attention to closing the abdomen. The abdomen was once again irrigated with warm saline solution. The fascia was then closed with a running looped PDS suture with 0 Ethibond dru internal retention sutures placed every 3 cm. The subcutaneous tissue was irrigated and covered with a dry sponge. We then turned our attention to maturing the ileostomy and colostomy. The stapled end of the end colostomy was removed using curved Sharif scissors. Bleeding was controlled using figure of 8 3-0 silk sutures. The colostomy was sutured to the fascia in 4 quadrants using interrupted 3-0 Vicryl sutures. It was then matured in the usual fashion using interrupted 3-0 Vicryl sutures. The ileostomy was matured in a similar fashion. The ileostomy and colostomy were then covered with towels and the skin cleansed with a wet and dry sponge. Adaptic was placed over the fascial closure and 1 piece of black sponge was placed in the subcutaneous tissue along the incision. Tegaderm dressing was placed over the black sponge and a wound VAC device affixed in the usual fashion. This was placed to -125 mmHg continuous low pressure and there was no leak identified. Ostomy appliances were applied to both ileostomy and end colostomy. At the end of the case, all sponge, instrument, and sharp counts were correct 2. The patient was awoken from anesthesia, extubated and taken to PACU in stable condition. The patient will be observed in the ICU overnight. His mother was notified of his condition.
[2018-01-28] MEDS ORDERED: NACL 0.9% 1000 ML 2,000 ML IV ONE (22:16)
[2018-01-28] MEDS: FLAGYL 500 MG/100 ML 500 MG/100 ML BAG IV SCH (22:56)
[2018-01-28] MEDS: LEVAQUIN 750MG/150ML 750 MG/150 ML BAG IV SCH (23:06)
[2018-01-28 23:13] LABS: Hematocrit 38.9 % (35.5-45.6)
[2018-01-28] MEDS: ZOFRAN IV PRN (23:13)
--- NOTE | 2018-01-28 23:29 | XRay Report ---
FINAL REPORT PROCEDURE: XR ABDOMEN 1V AP TECHNIQUE: Abdominal radiograph, single supine AP view. HISTORY: Abdominal Rebound Tenderness COMPARISON: No prior studies are available for comparison. FINDINGS: Bowel gas pattern:Intestinal gas is distributed predominantly in nondistended colon and stomach.. Masses or calcifications:None. Bony structures:No significant abnormality. Other:Nasogastric tube is terminating in the stomach. IMPRESSION: Nonspecific intestinal gas pattern
[2018-01-29] MEDS: DILAUDID IV PRN ×7 (00:02→22:19)
--- NOTE | 2018-01-29 00:19 | Event Note ---
Date: 01/28/[address] Gordon s/p exploratory laparotomy, lysis of adhesions, small bowel resection, right hemicolectomy, partial omentectomy, creation of end ileostomy and mucus fistula , application of wound vac. Patient will be monitor at ICU tonight for close monitoring.
[2018-01-29] MEDS: ATIVAN IV PRN ×2 (01:09→12:45)
[2018-01-29] MEDS: NACL 0.9% 1000 ML 1,000 ML IV SCH (01:54)
[2018-01-29 05:10] LABS: Hematocrit 37.7 % (35.5-45.6); Hemoglobin 12.1 gm/dl (11.8-15.2); Mean Corpuscular HGB Conc 32 % (32-34); Mean Corpuscular Hemoglobin 28 pg (28-32); Mean Corpuscular Volume 86 fl (84-94); Platelet Count 313 K/mm3 (140-440); Red Cell Distribution Width 17.9 % (13.2-15.2)
[2018-01-29 05:18] LABS: Alanine Aminotransferase 7 units/L (7-56); Albumin 1.4 g/dL (3.9-5); BUN/Creatinine Ratio 16; Blood Urea Nitrogen 11 mg/dL (9-20); Calcium 6.3 mg/dL (8.4-10.2); Hemolysis Index 8
[2018-01-29 05:22] LABS: Chol/HDL Ratio 1.38 %; HDL Cholesterol 34 mg/dL (40-59); LDL Cholesterol,Direct 7 mg/dL (50-130)
[2018-01-29] MEDS: HEPARIN SUB-Q SCH ×4 (06:09→23:00)
[2018-01-29] MEDS: FLAGYL 500 MG/100 ML 500 MG/100 ML BAG IV SCH ×3 (06:11→22:30)
[2018-01-29] MEDS ORDERED: MAGNESIUM SULFATE 1 GM in NACL 0.9% 50 ML IV ONE (09:03)
[2018-01-29] MEDS ORDERED: MAGNESIUM SULFATE 4GM/100ML 4 GM/100 ML BAG IV ONE (10:00)
--- NOTE | 2018-01-29 10:13 | Hem/Onc Progress Note ---
Assessment and Plan Awaiting final path. CBC stable. Continue postop care. Subjective Date of service: 01/29/18 Interval history: Status post right hemicolectomy. Intraoperative findings noted. Pathology pending. Did require packed RBCs . CBC stable Objective - Constitutional Vitals: Last Vital Signs Temp 98.5 F 01/29/18 08:00 Pulse 124 H 01/29/18 08:00 Resp 18 01/29/18 08:00 BP 99/67 01/29/18 08:00 Pulse Ox 97 01/29/18 08:00 Pain Intensity (0-10): denies any pain Performance status: 4-completely disabled - Respiratory Respiratory: bilateral: diminished - Cardiovascular Rhythm: regular Extremities: No edema - Gastrointestinal General gastrointestinal: Present: other (postop changes, ileostomy bag) - Labs Lab Results: Laboratory Results - last 24 hr 01/27/18 01/28/18 01/28/18 05:30 14:52 22:30 WBC RBC Hgb 12.0 D Hct 38.9 D MCV MCH MCHC RDW Plt Count Sodium Potassium Chloride Carbon Dioxide Anion Gap BUN Creatinine Estimated GFR BUN/Creatinine Ratio Glucose POC Glucose 155 H Calcium Phosphorus Magnesium Total Bilirubin AST ALT Alkaline Phosphatase Total Protein Albumin Albumin/Globulin Ratio Prealbumin Triglycerides Cholesterol LDL Cholesterol Direct HDL Cholesterol Cholesterol/HDL Ratio Blood Type O POSITIVE Antibody Screen Negative Crossmatch See Detail 01/28/18 01/29/18 01/29/18 23:57 04:33 04:33 WBC 13.1 H RBC 4.40 Hgb 12.1 Hct 37.7 MCV 86 MCH 28 MCHC 32 RDW 17.9 H Plt Count 313 Sodium 137 Potassium 4.9 D Chloride 108.5 H Carbon Dioxide 16 L D Anion Gap 17 BUN 11 Creatinine 0.7 L Estimated GFR > 60 BUN/Creatinine Ratio 16 Glucose 178 H POC Glucose 180 H Calcium 6.3 L D Phosphorus 3.70 Magnesium 1.50 L Total Bilirubin 0.30 AST 10 ALT 7 Alkaline Phosphatase 73 Total Protein 3.8 L Albumin 1.4 L Albumin/Globulin Ratio 0.6 Prealbumin 0.110 L Triglycerides 47 Cholesterol 47 L LDL Cholesterol Direct 7 L HDL Cholesterol 34 L Cholesterol/HDL Ratio 1.38 Blood Type Antibody Screen Crossmatch 01/29/18 05:45 WBC RBC Hgb Hct MCV MCH MCHC RDW Plt Count Sodium Potassium Chloride Carbon Dioxide Anion Gap BUN Creatinine Estimated GFR BUN/Creatinine Ratio Glucose POC Glucose 165 H Calcium Phosphorus Magnesium Total Bilirubin AST ALT Alkaline Phosphatase Total Protein Albumin Albumin/Globulin Ratio Prealbumin Triglycerides Cholesterol LDL Cholesterol Direct HDL Cholesterol Cholesterol/HDL Ratio Blood Type Antibody Screen Crossmatch
--- NOTE | 2018-01-29 12:34 | Consultation ---
History of Present Illness - Reason for Consult Consult date: 01/29/18 Post Op monitoring Requesting physician: MICHAEL BOLAÑOS - History of Present Illness 47 y/o male, admitted after abdominal pain after doing bowel prep for colonoscopy. Found to have an SBO that required surgical intervention. Patient underwent Ex-lap with removal and anastamosis. Patient had biopsies done that came back positive for cancer. Repeat surgery needed to help with staging and further diagnostic criteria. Once intraoperative, found that anastamosis was leaking. This was resected and two ostomies created. There was some mild hypotension and fluid shifts in the OR but nothing significant. NO blood loss. Patient was transfused given low counts prior to surgery. Given his diagnosis and unexpected findings, patient was transitioned to the ICU for overnight care. Awake and alert. Some abdominal pain now but stable. Was given a few fluid boluses last night, but no pressors required. Hemodynamically stable and H/H good. Past History Past Medical History: diabetes, hypertension, other (Crohn's disease) Past Surgical History: bowel surgery Social history: smoking Family history: diabetes, hypertension Medications and Allergies Allergies Allergy/AdvReac Type Severity Reaction Status Date / Time No Known Allergies Allergy Unverified 11/20/17 10:31 Home Medications Medication Instructions Recorded Confirmed Last Taken Type Lisinopril [Zestril TAB] 10 mg PO QDAY 11/20/17 12/25/17 Unknown History Metformin HCl 1 tab PO DAILY 11/20/17 12/25/17 Unknown History Zolpidem [Ambien] 10 mg PO QHS 11/20/17 12/25/17 Unknown History azaTHIOprine [Imuran] 50 mg PO QDAY #30 tablet 12/21/17 12/25/17 Unknown Rx predniSONE [Deltasone] 40 mg PO QDAY #60 tablet 12/21/17 12/25/17 Unknown Rx oxyCODONE /ACETAMINOPHEN [Percocet 1 tab PO BID PRN #14 tablet 12/28/17 Unknown Rx 5/325 mg] Active Meds: Active Medications Dextrose (D50w (25gm) Syringe) 50 ml IV PRN PRN PRN Reason: Hypoglycemia Heparin Sodium (Porcine) (Heparin) 5,000 unit SUB-Q Q8HR KELLY Last Admin: 01/29/18 06:09 Dose: 5,000 unit Hydromorphone HCl (Dilaudid) 2 mg IV Q3H PRN PRN Reason: Pain , Severe (7-10) Last Admin: 01/29/18 09:12 Dose: 2 mg Sodium Chloride (Nacl 0.9% 1000 Ml) 1,000 mls @ 75 mls/hr IV DIRECT KELLY Last Admin: 01/29/18 01:54 Dose: 75 mls/hr Levofloxacin/Dextrose (Levaquin 750mg/150ml) 750 mg in 150 mls @ 100 mls/hr IV Q24H KELLY; Protocol Last Admin: 01/28/18 23:06 Dose: 100 mls/hr Metronidazole (Flagyl 500 Mg/100 Ml) 500 mg in 100 mls @ 100 mls/hr IV Q8HR KELLY Last Admin: 01/29/18 06:11 Dose: 100 mls/hr Magnesium Sulfate (Magnesium Sulfate 4gm/100ml) 4 gm in 100 mls @ 25 mls/hr IV ONCE ONE Stop: 01/29/18 13:59 Labetalol HCl (Normodyne) 10 mg IV Q4H PRN PRN Reason: Blood Pressure Lorazepam (Ativan) 1 mg IV Q8H PRN PRN Reason: Anxiety Last Admin: 01/29/18 01:09 Dose: 1 mg Methylprednisolone Sodium Succinate (Solu-Medrol) 40 mg IV Q12HR KELLY Last Admin: 01/29/18 09:11 Dose: 40 mg Naloxone HCl (Narcan 0.4 Mg/1 Ml) 0.1 mg IV Q2MIN PRN PRN Reason: Res Rate </= 8 or 02 SAT < 92% Ondansetron HCl (Zofran) 4 mg IV Q4H PRN PRN Reason: N/V unrelieved by Michel Last Admin: 01/28/18 23:13 Dose: 4 mg Sodium Chloride (Nacl 0.9%) 1,000 ml IR PRN PRN PRN Reason: Wound Care Review of Systems All systems: negative Constitutional: weight loss Exam - Constitutional Vitals: Temp Pulse Resp BP Pulse Ox 98 F 124 H 11 L 109/61 96 01/29/18 08:00 01/29/18 10:00 01/29/18 10:00 01/29/18 10:00 01/29/18 10:00 General appearance: Present: no acute distress - EENT Eyes: Present: PERRL, EOM intact ENT: hearing intact, poor dentition - Respiratory Respiratory effort: normal Respiratory: bilateral: CTA - Cardiovascular Rhythm: regular Heart Sounds: Present: S1 & S2 - Extremities Extremities: no ischemia - Abdominal General gastrointestinal: Present: other (post surgical changes) Male genitourinary: Present: deferred - Rectal Rectal Exam: deferred - Musculoskeletal Musculoskeletal: strength equal bilaterally Results - Labs CBC & Chem 7: 01/29/18 04:33 01/29/18 04:33 Labs: Abnormal lab results 01/27/18 01/28/18 01/28/18 Range/Units 05:30 14:52 23:57 WBC (4.5-11.0) K/mm3 RDW (13.2-15.2) % Chloride (98-107) mmol/L Carbon Dioxide (22-30) mmol/L Creatinine (0.8-1.5) mg/dL Glucose (75-100) mg/dL POC Glucose 155 H 180 H (70-105) Calcium (8.4-10.2) mg/dL Magnesium (1.7-2.3) mg/dL Total Protein (6.3-8.2) g/dL Albumin (3.9-5) g/dL Prealbumin (0.200-0.400) g/L Cholesterol (50-199) mg/dL LDL Cholesterol Direct (50-130) mg/dL HDL Cholesterol (40-59) mg/dL Crossmatch See Detail 01/29/18 01/29/18 01/29/18 Range/Units 04:33 04:33 05:45 WBC 13.1 H (4.5-11.0) K/mm3 RDW 17.9 H (13.2-15.2) % Chloride 108.5 H (98-107) mmol/L Carbon Dioxide 16 L D (22-30) mmol/L Creatinine 0.7 L (0.8-1.5) mg/dL Glucose 178 H (75-100) mg/dL POC Glucose 165 H (70-105) Calcium 6.3 L D (8.4-10.2) mg/dL Magnesium 1.50 L (1.7-2.3) mg/dL Total Protein 3.8 L (6.3-8.2) g/dL Albumin 1.4 L (3.9-5) g/dL Prealbumin 0.110 L (0.200-0.400) g/L Cholesterol 47 L (50-199) mg/dL LDL Cholesterol Direct 7 L (50-130) mg/dL HDL Cholesterol 34 L (40-59) mg/dL Crossmatch Assessment and Plan 47 y/o male status post ex-lap times 2 now with diagnosis of abdominal cancer. 1. Hemodynamically stable 2. Pulm status is stable 3. Ok with transfer out of ICU, will discuss with IMS.
--- NOTE | 2018-01-29 13:50 | Progress Note ---
Assessment and Plan 47 yo M s/p Exploratory laparotomy, lysis of adhesions, small bowel resection, right hemicolectomy, partial omentectomy, creation of end ileostomy and mucus fistula, application of wound vac, POD 1 1. 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 Crohn's disease 3. malnutiriton 4. sepsis 5. high grade small bowel obstruction s/p Exploratory laparotomy, lysis of adhesions, ileocecectomy with primary anastomosis on 01/17/18 Plan: 1. NPO except ice chips 2. IVF - change to maintenance 3. IV abx 4. NGT to LCWS 5. strict I/Os 6. parker - strict I/Os -> dc in am tomorrow 7. PPI 8. DVT ppx 9. repeat am labs 10. start TPN, change midline to PICC, nutrition consult ordered 11. oncology on board 12. critical care recs appreciated 13 final path pending 14. continue wound vac and ostomy care - wound care nurse consulted. Wound vac to be changed on 01/31 15. PRN pain and nausea control ok for transfer to surgical floor, remote tele Subjective Date of service: 01/29/18 Narrative: Pt seen and examined. c/o pain near incision. No n/v. No f/c. BP has improved over the last 24 hours. Has not required pressors or additional blood transfusions. Objective Vital Signs - 12hr 01/29/18 01/29/18 01/29/18 02:00 02:30 03:00 Temperature Pulse Rate 124 H 123 H 123 H Respiratory 17 20 21 Rate Blood Pressure 101/65 98/67 98/71 O2 Sat by Pulse 96 96 96 Oximetry 01/29/18 01/29/18 01/29/18 03:30 04:00 04:30 Temperature 97.7 F Pulse Rate 126 H 127 H 126 H Respiratory 15 16 22 Rate Blood Pressure 97/66 97/66 106/67 O2 Sat by Pulse 94 96 96 Oximetry 01/29/18 01/29/18 01/29/18 05:00 05:18 06:00 Temperature Pulse Rate 122 H 124 H 123 H Respiratory 17 25 H Rate Blood Pressure 112/67 104/75 O2 Sat by Pulse 97 97 Oximetry 01/29/18 01/29/18 01/29/18 07:00 08:00 09:00 Temperature 98 F Pulse Rate 126 H 124 H 125 H Respiratory 18 18 22 Rate Blood Pressure 99/64 99/67 96/72 O2 Sat by Pulse 96 97 97 Oximetry 01/29/18 10:00 Temperature Pulse Rate 124 H Respiratory 11 L Rate Blood Pressure 109/61 O2 Sat by Pulse 96 Oximetry - General physical appearance Narrative Exam: Gen: AAOx3. NAD ENT: NGT with bilious drainage. CV: S1, S2+. Tachy Resp: No audible wheezes Abd: soft, ND, TTP near midline incision. No r/r/g. Ileostomy pink with decreased edema. Colostomy pink. Minimal fluid in bags. Wound vac without leak, good seal. Ext: no c/c/e : parker with clear yellow urine - Labs 01/29/18 04:33 01/29/18 04:33 Diabetes panel 01/29/18 Range/Units 04:33 Sodium 137 (137-145) mmol/L Potassium 4.9 D (3.6-5.0) mmol/L Chloride 108.5 H (98-107) mmol/L Carbon Dioxide 16 L D (22-30) mmol/L BUN 11 (9-20) mg/dL Creatinine 0.7 L (0.8-1.5) mg/dL Glucose 178 H (75-100) mg/dL Calcium 6.3 L D (8.4-10.2) mg/dL AST 10 (5-40) units/L ALT 7 (7-56) units/L Alkaline Phosphatase 73 (35-129) units/L Total Protein 3.8 L (6.3-8.2) g/dL Albumin 1.4 L (3.9-5) g/dL Triglycerides 47 (2-149) mg/dL HDL Cholesterol 34 L (40-59) mg/dL Calcium panel 01/29/18 Range/Units 04:33 Calcium 6.3 L D (8.4-10.2) mg/dL Phosphorus 3.70 (2.5-4.5) mg/dL Albumin 1.4 L (3.9-5) g/dL Pituitary panel 01/29/18 Range/Units 04:33 Sodium 137 (137-145) mmol/L Potassium 4.9 D (3.6-5.0) mmol/L Chloride 108.5 H (98-107) mmol/L Carbon Dioxide 16 L D (22-30) mmol/L BUN 11 (9-20) mg/dL Creatinine 0.7 L (0.8-1.5) mg/dL Glucose 178 H (75-100) mg/dL Calcium 6.3 L D (8.4-10.2) mg/dL Adrenal panel 01/29/18 Range/Units 04:33 Sodium 137 (137-145) mmol/L Potassium 4.9 D (3.6-5.0) mmol/L Chloride 108.5 H (98-107) mmol/L Carbon Dioxide 16 L D (22-30) mmol/L BUN 11 (9-20) mg/dL Creatinine 0.7 L (0.8-1.5) mg/dL Glucose 178 H (75-100) mg/dL Calcium 6.3 L D (8.4-10.2) mg/dL Total Bilirubin 0.30 (0.1-1.2) mg/dL AST 10 (5-40) units/L ALT 7 (7-56) units/L Alkaline Phosphatase 73 (35-129) units/L Total Protein 3.8 L (6.3-8.2) g/dL Albumin 1.4 L (3.9-5) g/dL
[2018-01-29] MEDS ORDERED: D5/0.45NS 1,000 ML IV SCH (14:00)
--- NOTE | 2018-01-29 14:37 | Progress Note ---
Assessment and Plan Assessment and plan: --SBO, with colon cancer s/p surgery -- s/p Exploratory laparotomy, lysis of adhesions, small bowel resection, right hemicolectomy, partial omentectomy, creation of end ileostomy and mucus fistula , application of wound vac, POD 1 --Oncology following, will need PET scan following surgery --SIRS with suspected early sepsis due to above: blood cultures negative to date, IV fluids, Placed on empiric IV Zosyn ,Off abx now --Type 2 DM: SSI q6hrs, A1c 6.8 --Crohn's colitis with complications/stricture causing sbo s/p surgery, - on Imuran and steroid, patient is on steroids, resume Imuran when patient is able to tolerate oral --Hypertension: prn iv labetalol, monitor BP closely --Abnormal EKG with st, pvc and LAFB: normal CE, troponin, patient free of chest pain --Tobacco/marijuana use: counseling done --DVT prophylaxis: scd for now, resume sq heparin and closely monitor H&H --GI prophylaxis: iv protonix Consults and recommendations noted and appreciated Plan of care discussed with the patient and his nurse Patient is stable to be transferred out of ICU to surgical floor if okay with surgery History Interval history: Patient seen and examined in ICU medical records reviewed Patient feels slightly better, complains of some pain in the abdomen Relieved by pain medications No new events reported by the nursing staff Alert awake oriented 3 Vital signs reviewed Hospitalist Physical - Constitutional Vitals: Temp Pulse Resp BP Pulse Ox 98 F 124 H 11 L 109/61 96 01/29/18 08:00 01/29/18 10:00 01/29/18 10:00 01/29/18 10:00 01/29/18 10:00 General appearance: Present: no acute distress, well-nourished - EENT Eyes: Present: PERRL, EOM intact - Neck Neck: Present: supple, normal ROM - Respiratory Respiratory effort: normal Respiratory: bilateral: diminished, negative: rales, rhonchi, wheezing - Cardiovascular Rhythm: regular Heart Sounds: Present: S1 & S2 - Extremities Extremities: no ischemia, No edema - Abdominal General gastrointestinal: soft, non-tender, non-distended, other (colostomy intact) - Integumentary Integumentary: Present: clear, warm - Psychiatric Psychiatric: appropriate mood/affect, cooperative - Neurologic Neurologic: CNII-XII intact, moves all extremities Results - Labs CBC & Chem 7: 01/29/18 04:33 01/29/18 04:33 Labs: Laboratory Last Values WBC 13.1 K/mm3 (4.5-11.0) H 01/29/18 04:33 RBC 4.40 M/mm3 (3.65-5.03) 01/29/18 04:33 Hgb 12.1 gm/dl (11.8-15.2) 01/29/18 04:33 Hct 37.7 % (35.5-45.6) 01/29/18 04:33 MCV 86 fl (84-94) 01/29/18 04:33 MCH 28 pg (28-32) 01/29/18 04:33 MCHC 32 % (32-34) 01/29/18 04:33 RDW 17.9 % (13.2-15.2) H 01/29/18 04:33 Plt Count 313 K/mm3 (140-440) 01/29/18 04:33 Lymph % (Auto) 13.7 % (13.4-35.0) 01/17/18 04:41 [place] % (Auto) 13.0 % (0.0-7.3) H 01/17/18 04:41 Eos % (Auto) 0.3 % (0.0-4.3) 01/17/18 04:41 Baso % (Auto) 0.3 % (0.0-1.8) 01/17/18 04:41 Lymph # 1.1 K/mm3 (1.2-5.4) L 01/17/18 04:41 [place] # 1.0 K/mm3 (0.0-0.8) H 01/17/18 04:41 Eos # 0.0 K/mm3 (0.0-0.4) 01/17/18 04:41 Baso # 0.0 K/mm3 (0.0-0.1) 01/17/18 04:41 Seg Neutrophils % 72.7 % (40.0-70.0) H 01/17/18 04:41 Seg Neutrophils # 5.6 K/mm3 (1.8-7.7) 01/17/18 04:41 Sodium 137 mmol/L (137-145) 01/29/18 04:33 Potassium 4.9 mmol/L (3.6-5.0) D 01/29/18 04:33 Chloride 108.5 mmol/L (98-107) H 01/29/18 04:33 Carbon Dioxide 16 mmol/L (22-30) L D 01/29/18 04:33 Anion Gap 17 mmol/L 01/29/18 04:33 BUN 11 mg/dL (9-20) 01/29/18 04:33 Creatinine 0.7 mg/dL (0.8-1.5) L 01/29/18 04:33 Estimated GFR > 60 ml/min 01/29/18 04:33 BUN/Creatinine Ratio 16 % 01/29/18 04:33 Glucose 178 mg/dL (75-100) H 01/29/18 04:33 POC Glucose 165 (70-105) H 01/29/18 05:45 Lactic Acid 1.60 mmol/L (0.7-2.0) 01/17/18 08:09 Calcium 6.3 mg/dL (8.4-10.2) L D 01/29/18 04:33 Phosphorus 3.70 mg/dL (2.5-4.5) 01/29/18 04:33 Magnesium 1.50 mg/dL (1.7-2.3) L 01/29/18 04:33 Total Bilirubin 0.30 mg/dL (0.1-1.2) 01/29/18 04:33 AST 10 units/L (5-40) 01/29/18 04:33 ALT 7 units/L (7-56) 01/29/18 04:33 Alkaline Phosphatase 73 units/L (35-129) 01/29/18 04:33 Total Creatine Kinase 40 units/L (55-170) L 01/17/18 21:14 CK-MB (CK-2) 5.2 ng/mL (0.0-4.0) H 01/17/18 21:14 CK-MB (CK-2) Rel Index 13.0 (0-4) H 01/17/18 21:14 Troponin T < 0.010 ng/mL (0.00-0.029) 01/17/18 21:14 Total Protein 3.8 g/dL (6.3-8.2) L 01/29/18 04:33 Albumin 1.4 g/dL (3.9-5) L 01/29/18 04:33 Albumin/Globulin Ratio 0.6 % 01/29/18 04:33 Prealbumin 0.110 g/L (0.200-0.400) L 01/29/18 04:33 Triglycerides 47 mg/dL (2-149) 01/29/18 04:33 Cholesterol 47 mg/dL (50-199) L 01/29/18 04:33 LDL Cholesterol Direct 7 mg/dL (50-130) L 01/29/18 04:33 HDL Cholesterol 34 mg/dL (40-59) L 01/29/18 04:33 Cholesterol/HDL Ratio 1.38 % 01/29/18 04:33 Lipase 9 units/L (13-60) L 01/18/18 04:54 Urine Color Yellow (Yellow) 01/19/18 11:30 Urine Turbidity Clear (Clear) 01/19/18 11:30 Urine pH 5.0 (5.0-7.0) 01/19/18 11:30 Ur Specific [place] 1.016 (1.003-1.030) 01/19/18 11:30 Urine Protein <15 mg/dl mg/dL (Negative) 01/19/18 11:30 Urine Glucose (UA) Neg mg/dL (Negative) 01/19/18 11:30 Urine Ketones 20 mg/dL (Negative) 01/19/18 11:30 Urine Blood Sm (Negative) 01/19/18 11:30 Urine Nitrite Neg (Negative) 01/19/18 11:30 Urine Bilirubin Neg (Negative) 01/19/18 11:30 Urine Urobilinogen < 2.0 mg/dL (<2.0) 01/19/18 11:30 Ur Leukocyte Esterase Neg (Negative) 01/19/18 11:30 Urine WBC (Auto) 2.0 /HPF (0.0-6.0) 01/19/18 11:30 Urine RBC (Auto) < 1.0 /HPF (0.0-6.0) 01/19/18 11:30 U Epithel Cells (Auto) < 1.0 /HPF (0-13.0) 01/18/18 00:02 Hyaline Casts 12 /LPF 01/18/18 00:02 Urine Mucus Few /HPF 01/19/18 11:30 Blood Type O POSITIVE 01/27/18 05:30 Antibody Screen Negative 01/27/18 05:30 Crossmatch See Detail 01/27/18 05:30
--- NOTE | 2018-01-29 14:49 | XRay Report ---
AP CHEST: HISTORY: Right arm PICC placement A right arm PICC has been inserted which terminates in the lower SVC. A nasogastric tube terminates in the distal stomach. There is poor inspiration with mild bibasilar atelectasis which is not significantly changed since the exam 7 days ago. No evidence for pneumonia, pleural effusion or pneumothorax. Heart and mediastinal structures are unremarkable. IMPRESSION: Right arm PICC as described. Mild bibasilar atelectasis.
[2018-01-29] MEDS: LEVAQUIN 750MG/150ML 750 MG/150 ML BAG IV SCH (16:52)
[2018-01-29] MEDS: PROTONIX IV SCH (16:58)
[2018-01-29] MEDS ORDERED: TPN ADULT 2,016 ML IV SCH (20:00)
[2018-01-29] MEDS ORDERED: NACL 0.45% 1000 ML 1,000 ML IV SCH (20:00)
[2018-01-30] MEDS: ATIVAN IV PRN ×2 (01:36→16:07)
[2018-01-30] MEDS: DILAUDID IV PRN ×5 (04:20→21:06)
[2018-01-30] MEDS: HEPARIN SUB-Q SCH ×3 (05:35→23:03)
[2018-01-30] MEDS: FLAGYL 500 MG/100 ML 500 MG/100 ML BAG IV SCH ×3 (05:49→22:58)
[2018-01-30 06:24] LABS: BUN/Creatinine Ratio 26; Blood Urea Nitrogen 13 mg/dL (9-20); Calcium 7.1 mg/dL (8.4-10.2); Hemolysis Index 0
[2018-01-30] MEDS: PROTONIX IV SCH (10:03)
--- NOTE | 2018-01-30 10:08 | Hem/Onc Progress Note ---
Assessment and Plan Awaiting final path. Continue supportive care. Subjective Date of service: 01/30/18 Interval history: Status post right hemicolectomy. Intraoperative findings noted. Pathology pending. Did require packed RBCs . CBC stable pt seems depressed. Complains of dry mouth Objective - Exam Narrative Exam: NG tube present - Constitutional Vitals: Last Vital Signs Temp 98.2 F 01/30/18 07:42 Pulse 115 H 01/30/18 07:45 Resp 18 01/30/18 07:42 BP 114/78 01/30/18 07:45 Pulse Ox 96 01/30/18 07:45 - Neck Neck: supple - Respiratory Respiratory effort: Positive: normal - Cardiovascular Rhythm: regular - Gastrointestinal General gastrointestinal: Present: other (postop changes. Ileostomy bags) - Labs Lab Results: Laboratory Results - last 24 hr 01/27/18 01/29/18 01/30/18 05:30 18:13 06:09 Sodium Potassium Chloride Carbon Dioxide Anion Gap BUN Creatinine Estimated GFR BUN/Creatinine Ratio Glucose POC Glucose 193 H 219 H Calcium Phosphorus Magnesium Blood Type O POSITIVE Antibody Screen Negative Crossmatch See Detail 01/30/18 Unknown Sodium 133 L Potassium 4.3 Chloride 101.5 Carbon Dioxide 22 Anion Gap 14 BUN 13 Creatinine 0.5 L Estimated GFR > 60 BUN/Creatinine Ratio 26 Glucose 253 H POC Glucose Calcium 7.1 L Phosphorus 1.80 L D Magnesium 2.30 Blood Type Antibody Screen Crossmatch
[2018-01-30 10:24] LABS: Hematocrit 27.9 % (35.5-45.6); Hemoglobin 9.2 gm/dl (11.8-15.2); Mean Corpuscular HGB Conc 33 % (32-34); Mean Corpuscular Hemoglobin 28 pg (28-32); Mean Corpuscular Volume 84 fl (84-94); Platelet Count 241 K/mm3 (140-440); Red Blood Count 3.31 M/mm3 (3.65-5.03); Red Cell Distribution Width 17.9 % (13.2-15.2)
[2018-01-30 10:41] LABS: Alanine Aminotransferase 7 units/L (7-56); Albumin 1.4 g/dL (3.9-5); BUN/Creatinine Ratio 24; Blood Urea Nitrogen 12 mg/dL (9-20); Calcium 7.5 mg/dL (8.4-10.2); Hemolysis Index 1
--- NOTE | 2018-01-30 11:58 | Progress Note ---
Assessment and Plan Assessment and plan: --SBO, with colon cancer s/p surgery -- s/p Exploratory laparotomy, lysis of adhesions, small bowel resection, right hemicolectomy, partial omentectomy, creation of end ileostomy and mucus fistula , application of wound vac, POD 1 --Oncology following, will need PET scan following surgery --SIRS with suspected early sepsis due to above: blood cultures negative to date, IV fluids, Placed on empiric IV Zosyn ,Off abx now --Severe protein calorie malnutrition; hypoalbuminemia, nutrition supplements, supportive care --Type 2 DM: SSI q6hrs, A1c 6.8 --Crohn's colitis with complications/stricture causing sbo s/p surgery, - on Imuran and steroid, patient is on steroids, resume Imuran when patient is able to tolerate oral --Hypertension: prn iv labetalol, monitor BP closely --Abnormal EKG with st, pvc and LAFB: normal CE, troponin, patient free of chest pain --Tobacco/marijuana use: counseling done --DVT prophylaxis: scd for now, resume sq heparin and closely monitor H&H --GI prophylaxis: iv protonix Out of bed to chair PT evaluation and therapy as tolerated Consults and recommendations noted and appreciated Plan of care discussed with the patient and his nurse History Interval history: Patient seen and examined medical records reviewed Complaints of pain abdomen, Denies nausea or vomiting Colostomy clean Alert awake oriented 3 Vital signs reviewed Hospitalist Physical - Constitutional Vitals: Temp Pulse Resp BP Pulse Ox 98.2 F 115 H 18 114/78 96 01/30/18 07:42 01/30/18 07:45 01/30/18 07:42 01/30/18 07:45 01/30/18 07:45 General appearance: Present: no acute distress, well-nourished - EENT Eyes: Present: PERRL, EOM intact - Neck Neck: Present: supple, normal ROM - Respiratory Respiratory effort: normal Respiratory: bilateral: diminished, negative: rales, rhonchi, wheezing - Cardiovascular Rhythm: regular Heart Sounds: Present: S1 & S2 - Extremities Extremities: no ischemia, No edema - Abdominal General gastrointestinal: soft, tender, non-distended, hypoactive bowel sounds, other (colostomy in place) - Integumentary Integumentary: Present: clear, warm - Psychiatric Psychiatric: appropriate mood/affect, cooperative - Neurologic Neurologic: CNII-XII intact, moves all extremities Results - Labs CBC & Chem 7: 01/30/18 09:58 01/30/18 Unknown Labs: Laboratory Last Values WBC 12.4 K/mm3 (4.5-11.0) H 01/30/18 09:58 RBC 3.31 M/mm3 (3.65-5.03) L 01/30/18 09:58 Hgb 9.2 gm/dl (11.8-15.2) L 01/30/18 09:58 Hct 27.9 % (35.5-45.6) L D 01/30/18 09:58 MCV 84 fl (84-94) 01/30/18 09:58 MCH 28 pg (28-32) 01/30/18 09:58 MCHC 33 % (32-34) 01/30/18 09:58 RDW 17.9 % (13.2-15.2) H 01/30/18 09:58 Plt Count 241 K/mm3 (140-440) 01/30/18 09:58 Lymph % (Auto) 13.7 % (13.4-35.0) 01/17/18 04:41 [place] % (Auto) 13.0 % (0.0-7.3) H 01/17/18 04:41 Eos % (Auto) 0.3 % (0.0-4.3) 01/17/18 04:41 Baso % (Auto) 0.3 % (0.0-1.8) 01/17/18 04:41 Lymph # 1.1 K/mm3 (1.2-5.4) L 01/17/18 04:41 [place] # 1.0 K/mm3 (0.0-0.8) H 01/17/18 04:41 Eos # 0.0 K/mm3 (0.0-0.4) 01/17/18 04:41 Baso # 0.0 K/mm3 (0.0-0.1) 01/17/18 04:41 Seg Neutrophils % Paste Mixing Supervisor 01/30/18 09:58 Seg Neutrophils # 5.6 K/mm3 (1.8-7.7) 01/17/18 04:41 Sodium 133 mmol/L (137-145) L 01/30/18 Unknown Potassium 4.3 mmol/L (3.6-5.0) 01/30/18 Unknown Chloride 101.5 mmol/L (98-107) 01/30/18 Unknown Carbon Dioxide 22 mmol/L (22-30) 01/30/18 Unknown Anion Gap 14 mmol/L 01/30/18 Unknown BUN 13 mg/dL (9-20) 01/30/18 Unknown Creatinine 0.5 mg/dL (0.8-1.5) L 01/30/18 Unknown Estimated GFR > 60 ml/min 01/30/18 Unknown BUN/Creatinine Ratio 26 % 01/30/18 Unknown Glucose 253 mg/dL (75-100) H 01/30/18 Unknown POC Glucose 219 (70-105) H 01/30/18 06:09 Lactic Acid 1.60 mmol/L (0.7-2.0) 01/17/18 08:09 Calcium 7.1 mg/dL (8.4-10.2) L 01/30/18 Unknown Phosphorus 1.80 mg/dL (2.5-4.5) L D 01/30/18 Unknown Magnesium 2.30 mg/dL (1.7-2.3) 01/30/18 Unknown Total Bilirubin 0.20 mg/dL (0.1-1.2) 01/30/18 09:58 AST 8 units/L (5-40) 01/30/18 09:58 ALT 7 units/L (7-56) 01/30/18 09:58 Alkaline Phosphatase 79 units/L (35-129) 01/30/18 09:58 Total Creatine Kinase 40 units/L (55-170) L 01/17/18 21:14 CK-MB (CK-2) 5.2 ng/mL (0.0-4.0) H 01/17/18 21:14 CK-MB (CK-2) Rel Index 13.0 (0-4) H 01/17/18 21:14 Troponin T < 0.010 ng/mL (0.00-0.029) 01/17/18 21:14 Total Protein 4.1 g/dL (6.3-8.2) L 01/30/18 09:58 Albumin 1.4 g/dL (3.9-5) L 01/30/18 09:58 Albumin/Globulin Ratio 0.5 % 01/30/18 09:58 Prealbumin 0.110 g/L (0.200-0.400) L 01/29/18 04:33 Triglycerides 47 mg/dL (2-149) 01/29/18 04:33 Cholesterol 47 mg/dL (50-199) L 01/29/18 04:33 LDL Cholesterol Direct 7 mg/dL (50-130) L 01/29/18 04:33 HDL Cholesterol 34 mg/dL (40-59) L 01/29/18 04:33 Cholesterol/HDL Ratio 1.38 % 01/29/18 04:33 Lipase 9 units/L (13-60) L 01/18/18 04:54 Urine Color Yellow (Yellow) 01/19/18 11:30 Urine Turbidity Clear (Clear) 01/19/18 11:30 Urine pH 5.0 (5.0-7.0) 01/19/18 11:30 Ur Specific [place] 1.016 (1.003-1.030) 01/19/18 11:30 Urine Protein <15 mg/dl mg/dL (Negative) 01/19/18 11:30 Urine Glucose (UA) Neg mg/dL (Negative) 01/19/18 11:30 Urine Ketones 20 mg/dL (Negative) 01/19/18 11:30 Urine Blood Sm (Negative) 01/19/18 11:30 Urine Nitrite Neg (Negative) 01/19/18 11:30 Urine Bilirubin Neg (Negative) 01/19/18 11:30 Urine Urobilinogen < 2.0 mg/dL (<2.0) 01/19/18 11:30 Ur Leukocyte Esterase Neg (Negative) 01/19/18 11:30 Urine WBC (Auto) 2.0 /HPF (0.0-6.0) 01/19/18 11:30 Urine RBC (Auto) < 1.0 /HPF (0.0-6.0) 01/19/18 11:30 U Epithel Cells (Auto) < 1.0 /HPF (0-13.0) 01/18/18 00:02 Hyaline Casts 12 /LPF 01/18/18 00:02 Urine Mucus Few /HPF 01/19/18 11:30 Blood Type O POSITIVE 01/27/18 05:30 Antibody Screen Negative 01/27/18 05:30 Crossmatch See Detail 01/27/18 05:30
[2018-01-30] MEDS ORDERED: SODIUM PHOSPHATE 30 MMOL in NACL 0.9% 500 ML 500 ML IV ONE (12:00)
[2018-01-30 12:08] LABS: Anisocytosis 1+; Band Neutrophils # (Manual) 0.4 K/mm3; Basophils % (Manual) 0 % (0.0-1.8); Eosinophils % (Manual) 0 % (0.0-4.3); Macrocytosis Few; Platelet Estimate Consistent w Auto; Total Cells Counted 100
--- NOTE | 2018-01-30 12:22 | Progress Note ---
Assessment and Plan 47 yo M s/p Exploratory laparotomy, lysis of adhesions, small bowel resection, right hemicolectomy, partial omentectomy, creation of end ileostomy and mucus fistula, application of wound vac, POD 2 1. 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 Crohn's disease 3. malnutiriton 4. sepsis 5. high grade small bowel obstruction s/p Exploratory laparotomy, lysis of adhesions, ileocecectomy with primary anastomosis on 01/17/18 Plan: 1. NPO except ice chips 2. dc IVF 3. IV abx 4. NGT to LCWS - will dc once there is ileostomy function. OK to clamp for OOB, ambulation 5. strict I/Os 6. dc parker today, void trial 7. PPI 8. DVT ppx 9. repeat am labs 10. continue TPN 11. oncology on board 12. replace phos 13 final path pending 14. continue wound vac and ostomy care - wound care nurse consulted. Wound vac to be changed on 01/31 15. PRN pain and nausea control 16. PT consult, patient to be OOB to chair today Subjective Date of service: 01/30/18 Narrative: Pt seen and examined. No acute complaints. He admits to having a rough time with his diagnosis and long hospital stay. He has been afebrile. His pain is controlled. No overnight events. He was downgraded from ICU yesterday. Objective Vital Signs - 12hr 01/30/18 01/30/18 01/30/18 00:52 04:20 04:58 Temperature 98.7 F Pulse Rate 121 H 108 H Respiratory 20 17 18 Rate Blood Pressure 105/69 Blood Pressure 99/70 [Right] O2 Sat by Pulse 96 94 Oximetry 01/30/18 01/30/18 01/30/18 04:59 07:42 07:43 Temperature 98.2 F Pulse Rate 107 H 98 H 105 H Respiratory 18 Rate Blood Pressure 105/69 123/75 Blood Pressure [Right] O2 Sat by Pulse 94 97 96 Oximetry 01/30/18 07:45 Temperature Pulse Rate 115 H Respiratory Rate Blood Pressure 114/78 Blood Pressure [Right] O2 Sat by Pulse 96 Oximetry - General physical appearance Narrative Exam: Gen: AAOx3. NAD ENT: NGT with bilious drainage CV: s1, S2+ Resp: No audible wheezes Abd: soft, ND, NT. midline wound vac with good seal and no leak, serous drainage. Ileostomy pink with less edema, minimal liquid stool in bag. Colostomy pink with serous liquid in bag. Ext: no c/c/e - Labs 01/30/18 09:58 01/30/18 Unknown Diabetes panel 01/30/18 01/30/18 Range/Units 09:58 Unknown Sodium 134 L 133 L (137-145) mmol/L Potassium 4.1 4.3 (3.6-5.0) mmol/L Chloride 101.4 101.5 (98-107) mmol/L Carbon Dioxide 24 22 (22-30) mmol/L BUN 12 13 (9-20) mg/dL Creatinine 0.5 L 0.5 L (0.8-1.5) mg/dL Glucose 252 H 253 H (75-100) mg/dL Calcium 7.5 L 7.1 L (8.4-10.2) mg/dL AST 8 (5-40) units/L ALT 7 (7-56) units/L Alkaline Phosphatase 79 (35-129) units/L Total Protein 4.1 L (6.3-8.2) g/dL Albumin 1.4 L (3.9-5) g/dL Calcium panel 01/30/18 01/30/18 Range/Units 09:58 Unknown Calcium 7.5 L 7.1 L (8.4-10.2) mg/dL Phosphorus 1.80 L D (2.5-4.5) mg/dL Albumin 1.4 L (3.9-5) g/dL Pituitary panel 01/30/18 01/30/18 Range/Units 09:58 Unknown Sodium 134 L 133 L (137-145) mmol/L Potassium 4.1 4.3 (3.6-5.0) mmol/L Chloride 101.4 101.5 (98-107) mmol/L Carbon Dioxide 24 22 (22-30) mmol/L BUN 12 13 (9-20) mg/dL Creatinine 0.5 L 0.5 L (0.8-1.5) mg/dL Glucose 252 H 253 H (75-100) mg/dL Calcium 7.5 L 7.1 L (8.4-10.2) mg/dL Adrenal panel 01/30/18 01/30/18 Range/Units 09:58 Unknown Sodium 134 L 133 L (137-145) mmol/L Potassium 4.1 4.3 (3.6-5.0) mmol/L Chloride 101.4 101.5 (98-107) mmol/L Carbon Dioxide 24 22 (22-30) mmol/L BUN 12 13 (9-20) mg/dL Creatinine 0.5 L 0.5 L (0.8-1.5) mg/dL Glucose 252 H 253 H (75-100) mg/dL Calcium 7.5 L 7.1 L (8.4-10.2) mg/dL Total Bilirubin 0.20 (0.1-1.2) mg/dL AST 8 (5-40) units/L ALT 7 (7-56) units/L Alkaline Phosphatase 79 (35-129) units/L Total Protein 4.1 L (6.3-8.2) g/dL Albumin 1.4 L (3.9-5) g/dL
[2018-01-30] MEDS: LEVAQUIN 750MG/150ML 750 MG/150 ML BAG IV SCH (18:54)
[2018-01-30] MEDS ORDERED: TPN ADULT 2,016 ML IV SCH (20:00)
[2018-01-31] MEDS: DILAUDID IV PRN ×7 (00:13→21:09)
[2018-01-31] MEDS: FLAGYL 500 MG/100 ML 500 MG/100 ML BAG IV SCH ×3 (05:50→21:11)
[2018-01-31] MEDS: HEPARIN SUB-Q SCH ×3 (05:50→21:10)
[2018-01-31 05:54] LABS: Hematocrit 26.8 % (35.5-45.6); Mean Corpuscular HGB Conc 33 % (32-34); Mean Corpuscular Hemoglobin 28 pg (28-32); Mean Corpuscular Volume 85 fl (84-94); Platelet Count 188 K/mm3 (140-440); Red Blood Count 3.18 M/mm3 (3.65-5.03); Red Cell Distribution Width 17.2 % (13.2-15.2)
[2018-01-31] MEDS: ATIVAN IV PRN ×3 (06:19→21:38)
[2018-01-31 06:38] LABS: BUN/Creatinine Ratio 23; Blood Urea Nitrogen 9 mg/dL (9-20); Calcium 7.8 mg/dL (8.4-10.2); Hemolysis Index 0
[2018-01-31 07:40] LABS: Band Neutrophils # (Manual) 0.8 K/mm3; Basophils % (Manual) 0 % (0.0-1.8); Eosinophils % (Manual) 0 % (0.0-4.3); Total Cells Counted 100
[2018-01-31 07:41] LABS: Anisocytosis 1+
[2018-01-31 07:42] LABS: Hypochromasia Few
[2018-01-31] MEDS: PROTONIX IV SCH (10:41)
--- NOTE | 2018-01-31 12:26 | Hem/Onc Progress Note ---
Assessment and Plan Continue postop care. CBC is stable. Awaiting final pathology. Subjective Date of service: 01/31/18 Interval history: Status post right hemicolectomy. Intraoperative findings noted. Pathology pending. Did require packed RBCs . CBC stable pt seems depressed. Complains of dry mouth. Pain stable Objective - Constitutional Vitals: Last Vital Signs Temp 98 F 01/31/18 04:09 Pulse 97 H 01/31/18 04:09 Resp 20 01/31/18 04:09 BP 134/86 01/31/18 04:09 Pulse Ox 96 01/31/18 08:43 - Neck Neck: supple - Respiratory Respiratory: bilateral: diminished - Cardiovascular Rhythm: regular Extremities: abnormal (1+ edema) - Gastrointestinal General gastrointestinal: Present: soft (postop changes. Ileostomies) - Labs Lab Results: Laboratory Results - last 24 hr 01/30/18 01/31/18 01/31/18 09:58 00:13 05:23 WBC 9.7 RBC 3.18 L Hgb 9.0 L Hct 26.8 L MCV 85 MCH 28 MCHC 33 RDW 17.2 H Plt Count 188 Add Manual Diff Complete Complete Total Counted 100 100 Seg Neutrophils % Business Line Manager Seg Neuts % (Manual) 95.0 H 89.0 H Band Neutrophils % 3.0 8.0 Lymphocytes % (Manual) 0 L 2.0 L Reactive Lymphs % (Man) 0 0 Monocytes % (Manual) 2.0 1.0 Eosinophils % (Manual) 0 0 Basophils % (Manual) 0 0 Metamyelocytes % 0 0 Myelocytes % 0 0 Promyelocytes % 0 0 Blast Cells % 0 0 Nucleated RBC % Not Reportable Seg Neutrophils # Man 11.8 H 8.6 H Band Neutrophils # 0.4 0.8 Lymphocytes # (Manual) 0.0 L 0.2 L Abs React Lymphs (Man) 0.0 0.0 Monocytes # (Manual) 0.2 0.1 Eosinophils # (Manual) 0.0 0.0 Basophils # (Manual) 0.0 0.0 Metamyelocytes # 0.0 0.0 Myelocytes # 0.0 0.0 Promyelocytes # 0.0 0.0 Blast Cells # 0.0 0.0 WBC Morphology Not Reportable Hypersegmented Neuts Not Reportable Hyposegmented Neuts Not Reportable Hypogranular Neuts Not Reportable Smudge Cells Not Reportable Toxic Granulation Not Reportable Toxic Vacuolation Not Reportable Dohle Bodies Not Reportable Pelger-Huet Anomaly Not Reportable Christina Rods Not Reportable Platelet Estimate Consistent w auto Appears normal Clumped Platelets Not Reportable Plt Clumps, EDTA Not Reportable Large Platelets Not Reportable Giant Platelets Not Reportable Platelet Satelliting Not Reportable Plt Morphology Comment Not Reportable RBC Morphology Not Reportable Dimorphic RBCs Not Reportable Polychromasia Not Reportable Hypochromasia Few Poikilocytosis Not Reportable Anisocytosis 1+ 1+ Microcytosis Not Reportable Macrocytosis Few Not Reportable Spherocytes Not Reportable Pappenheimer Bodies Not Reportable Sickle Cells Not Reportable Target Cells Not Reportable Tear Drop Cells Not Reportable Ovalocytes Not Reportable Helmet Cells Not Reportable [place] Bodies Not Reportable [place] Rings Not Reportable [place] Cells Not Reportable Bite Cells Not Reportable Crenated Cell Not Reportable Elliptocytes Not Reportable Acanthocytes (Spur) Not Reportable Rouleaux Not Reportable Hemoglobin C Crystals Not Reportable Schistocytes Not Reportable Malaria parasites Not Reportable Krishna Bodies Not Reportable Hem Pathologist Commnt No No Sodium Potassium Chloride Carbon Dioxide Anion Gap BUN Creatinine Estimated GFR BUN/Creatinine Ratio Glucose POC Glucose 172 H Calcium Phosphorus Magnesium 01/31/18 01/31/18 05:23 05:50 WBC RBC Hgb Hct MCV MCH MCHC RDW Plt Count Add Manual Diff Total Counted Seg Neutrophils % Seg Neuts % (Manual) Band Neutrophils % Lymphocytes % (Manual) Reactive Lymphs % (Man) Monocytes % (Manual) Eosinophils % (Manual) Basophils % (Manual) Metamyelocytes % Myelocytes % Promyelocytes % Blast Cells % Nucleated RBC % Seg Neutrophils # Man Band Neutrophils # Lymphocytes # (Manual) Abs React Lymphs (Man) Monocytes # (Manual) Eosinophils # (Manual) Basophils # (Manual) Metamyelocytes # Myelocytes # Promyelocytes # Blast Cells # WBC Morphology Hypersegmented Neuts Hyposegmented Neuts Hypogranular Neuts Smudge Cells Toxic Granulation Toxic Vacuolation Dohle Bodies Pelger-Huet Anomaly Christina Rods Platelet Estimate Clumped Platelets Plt Clumps, EDTA Large Platelets Giant Platelets Platelet Satelliting Plt Morphology Comment RBC Morphology Dimorphic RBCs Polychromasia Hypochromasia Poikilocytosis Anisocytosis Microcytosis Macrocytosis Spherocytes Pappenheimer Bodies Sickle Cells Target Cells Tear Drop Cells Ovalocytes Helmet Cells [place] Bodies [place] Rings Lad[place] Cells Bite Cells Crenated Cell Elliptocytes Acanthocytes (Spur) Rouleaux Hemoglobin C Crystals Schistocytes Malaria parasites Krishna Bodies Hem Pathologist Commnt Sodium 133 L Potassium 3.8 Chloride 97.2 L Carbon Dioxide 26 Anion Gap 14 BUN 9 Creatinine 0.4 L Estimated GFR > 60 BUN/Creatinine Ratio 23 Glucose 248 H POC Glucose 266 H Calcium 7.8 L Phosphorus 2.70 D Magnesium 1.80
--- NOTE | 2018-01-31 13:25 | Progress Note ---
Assessment and Plan 47 yo M s/p Exploratory laparotomy, lysis of adhesions, small bowel resection, right hemicolectomy, partial omentectomy, creation of end ileostomy and mucus fistula, application of wound vac, POD 3 1. 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 Crohn's disease 3. malnutiriton 4. sepsis 5. high grade small bowel obstruction s/p Exploratory laparotomy, lysis of adhesions, ileocecectomy with primary anastomosis on 01/17/18 Plan: 1. start clear liquids 2. dc NGT 3. IV abx 4. dc tele 5. strict I/Os 6. PPI 7. DVT ppx 8. repeat lytes per TPN protocol 10. continue TPN 11. oncology on board, will review final path with Dr. Dai 12. continue wound vac and ostomy care - wound care nurse consulted. Wound vac to be changed today 13. PRN pain and nausea control 14. OOB, PT 15. strict glucose control, ISS D/W Dr. Cabrera Subjective Date of service: 01/31/18 Narrative: Pt seen and examined. No acute complaints or overnight events. No n/v, cp, sob, f/c. Abd pain is controlled. He has been getting OOB. He is urinating on his own. Objective Vital Signs - 12hr 01/31/18 01/31/18 01/31/18 04:09 08:43 11:10 Temperature 98 F Pulse Rate 97 H Respiratory 20 18 Rate Blood Pressure 134/86 [Left] O2 Sat by Pulse 92 96 Oximetry 01/31/18 12:00 Temperature 97.7 F Pulse Rate 85 Respiratory 18 Rate Blood Pressure 124/97 [Left] O2 Sat by Pulse 93 Oximetry - General physical appearance Narrative Exam: gen: AAOx3. NAD ENT: NGT with light bilious drainage CV: S1, S2+ Resp: No audible wheezes Abd: soft, ND, mild TTP near midline incision. Ileostomy and colostomy with stool output. Midline vac in place with no leak. Ext: no c/c/e - Labs 01/31/18 05:23 01/31/18 05:23 Diabetes panel 01/31/18 Range/Units 05:23 Sodium 133 L (137-145) mmol/L Potassium 3.8 (3.6-5.0) mmol/L Chloride 97.2 L (98-107) mmol/L Carbon Dioxide 26 (22-30) mmol/L BUN 9 (9-20) mg/dL Creatinine 0.4 L (0.8-1.5) mg/dL Glucose 248 H (75-100) mg/dL Calcium 7.8 L (8.4-10.2) mg/dL Calcium panel 01/31/18 Range/Units 05:23 Calcium 7.8 L (8.4-10.2) mg/dL Phosphorus 2.70 D (2.5-4.5) mg/dL Pituitary panel 01/31/18 Range/Units 05:23 Sodium 133 L (137-145) mmol/L Potassium 3.8 (3.6-5.0) mmol/L Chloride 97.2 L (98-107) mmol/L Carbon Dioxide 26 (22-30) mmol/L BUN 9 (9-20) mg/dL Creatinine 0.4 L (0.8-1.5) mg/dL Glucose 248 H (75-100) mg/dL Calcium 7.8 L (8.4-10.2) mg/dL Adrenal panel 01/31/18 Range/Units 05:23 Sodium 133 L (137-145) mmol/L Potassium 3.8 (3.6-5.0) mmol/L Chloride 97.2 L (98-107) mmol/L Carbon Dioxide 26 (22-30) mmol/L BUN 9 (9-20) mg/dL Creatinine 0.4 L (0.8-1.5) mg/dL Glucose 248 H (75-100) mg/dL Calcium 7.8 L (8.4-10.2) mg/dL
--- NOTE | 2018-01-31 16:02 | Progress Note ---
Assessment and Plan Assessment and plan: --Uncontrolled blood sugars; 2 diabetes mellitus Accu-Chek sliding scale coverage, low-dose long-acting insulin, patient's A1c is 6.8 Closely monitor --SBO, with poorly differentiated signet ring colon cancer s/p surgery -- s/p Exploratory laparotomy, lysis of adhesions, small bowel resection, right hemicolectomy, partial omentectomy, creation of end ileostomy and mucus fistula, application of wound vac, POD 1 --Oncology following, will need PET scan following surgery --SIRS with suspected early sepsis due to above: blood cultures negative to date, IV fluids, Placed on empiric IV Zosyn ,Off abx now --Severe protein calorie malnutrition; hypoalbuminemia, nutrition supplements, supportive care --Crohn's disease with complications/stricture causing sbo s/p surgery, Continue Imuran and steroid, --Hypertension: The new current antihypertensives and when necessary medications --Abnormal EKG with st, pvc and LAFB: Continue to monitor --Tobacco/marijuana use: counseling done --DVT prophylaxis: scd for now, resume sq heparin and closely monitor H&H --GI prophylaxis: iv protonix PT evaluation as tolerated Consults and recommendations noted and appreciated Plan of care discussed with the patient and his nurse DC planning. Case management; possible home with home health when medically and surgically stable History Interval history: Patient seen and examined medical records reviewed Patient feels slightly better, started on clear liquids Patient's blood sugars are uncontrolled We'll add Accu-Chek sliding scale coverage and insulin Patient alert awake oriented 3 Tolerating physical therapy Vital signs reviewed Hospitalist Physical - Constitutional Vitals: Temp Pulse Resp BP Pulse Ox 97.7 F 85 18 124/97 93 01/31/18 12:00 01/31/18 12:00 01/31/18 12:00 01/31/18 12:00 01/31/18 12:00 General appearance: Present: no acute distress, well-nourished - EENT Eyes: Present: PERRL, EOM intact - Neck Neck: Present: supple, normal ROM - Respiratory Respiratory effort: normal Respiratory: bilateral: diminished, negative: rales, rhonchi, wheezing - Cardiovascular Rhythm: regular Heart Sounds: Present: S1 & S2 - Extremities Extremities: no ischemia, No edema - Abdominal General gastrointestinal: soft, non-tender, non-distended, normal bowel sounds, other (colostomy in place) - Integumentary Integumentary: Present: clear, warm - Psychiatric Psychiatric: appropriate mood/affect, cooperative - Neurologic Neurologic: CNII-XII intact, moves all extremities Results - Labs CBC & Chem 7: 01/31/18 05:23 01/31/18 05:23 Labs: Laboratory Last Values WBC 9.7 K/mm3 (4.5-11.0) 01/31/18 05:23 RBC 3.18 M/mm3 (3.65-5.03) L 01/31/18 05:23 Hgb 9.0 gm/dl (11.8-15.2) L 01/31/18 05:23 Hct 26.8 % (35.5-45.6) L 01/31/18 05:23 MCV 85 fl (84-94) 01/31/18 05:23 MCH 28 pg (28-32) 01/31/18 05:23 MCHC 33 % (32-34) 01/31/18 05:23 RDW 17.2 % (13.2-15.2) H 01/31/18 05:23 Plt Count 188 K/mm3 (140-440) 01/31/18 05:23 Lymph % (Auto) 13.7 % (13.4-35.0) 01/17/18 04:41 [place] % (Auto) 13.0 % (0.0-7.3) H 01/17/18 04:41 Eos % (Auto) 0.3 % (0.0-4.3) 01/17/18 04:41 Baso % (Auto) 0.3 % (0.0-1.8) 01/17/18 04:41 Lymph # 1.1 K/mm3 (1.2-5.4) L 01/17/18 04:41 [place] # 1.0 K/mm3 (0.0-0.8) H 01/17/18 04:41 Eos # 0.0 K/mm3 (0.0-0.4) 01/17/18 04:41 Baso # 0.0 K/mm3 (0.0-0.1) 01/17/18 04:41 Add Manual Diff Complete 01/31/18 05:23 Total Counted 100 01/31/18 05:23 Seg Neutrophils % Supervisor Tubing 01/31/18 05:23 Seg Neuts % (Manual) 89.0 % (40.0-70.0) H 01/31/18 05:23 Band Neutrophils % 8.0 % 01/31/18 05:23 Lymphocytes % (Manual) 2.0 % (13.4-35.0) L 01/31/18 05:23 Reactive Lymphs % (Man) 0 % 01/31/18 05:23 Monocytes % (Manual) 1.0 % (0.0-7.3) 01/31/18 05:23 Eosinophils % (Manual) 0 % (0.0-4.3) 01/31/18 05:23 Basophils % (Manual) 0 % (0.0-1.8) 01/31/18 05:23 Metamyelocytes % 0 % 01/31/18 05:23 Myelocytes % 0 % 01/31/18 05:23 Promyelocytes % 0 % 01/31/18 05:23 Blast Cells % 0 % 01/31/18 05:23 Nucleated RBC % Not Reportable 01/31/18 05:23 Seg Neutrophils # 5.6 K/mm3 (1.8-7.7) 01/17/18 04:41 Seg Neutrophils # Man 8.6 K/mm3 (1.8-7.7) H 01/31/18 05:23 Band Neutrophils # 0.8 K/mm3 01/31/18 05:23 Lymphocytes # (Manual) 0.2 K/mm3 (1.2-5.4) L 01/31/18 05:23 Abs React Lymphs (Man) 0.0 K/mm3 01/31/18 05:23 Monocytes # (Manual) 0.1 K/mm3 (0.0-0.8) 01/31/18 05:23 Eosinophils # (Manual) 0.0 K/mm3 (0.0-0.4) 01/31/18 05:23 Basophils # (Manual) 0.0 K/mm3 (0.0-0.1) 01/31/18 05:23 Metamyelocytes # 0.0 K/mm3 01/31/18 05:23 Myelocytes # 0.0 K/mm3 01/31/18 05:23 Promyelocytes # 0.0 K/mm3 01/31/18 05:23 Blast Cells # 0.0 K/mm3 01/31/18 05:23 WBC Morphology Not Reportable 01/31/18 05:23 Hypersegmented Neuts Not Reportable 01/31/18 05:23 Hyposegmented Neuts Not Reportable 01/31/18 05:23 Hypogranular Neuts Not Reportable 01/31/18 05:23 Smudge Cells Not Reportable 01/31/18 05:23 Toxic Granulation Not Reportable 01/31/18 05:23 Toxic Vacuolation Not Reportable 01/31/18 05:23 Dohle Bodies Not Reportable 01/31/18 05:23 Pelger-Huet Anomaly Not Reportable 01/31/18 05:23 Christina Rods Not Reportable 01/31/18 05:23 Platelet Estimate Appears normal 01/31/18 05:23 Clumped Platelets Not Reportable 01/31/18 05:23 Plt Clumps, EDTA Not Reportable 01/31/18 05:23 Large Platelets Not Reportable 01/31/18 05:23 Giant Platelets Not Reportable 01/31/18 05:23 Platelet Satelliting Not Reportable 01/31/18 05:23 Plt Morphology Comment Not Reportable 01/31/18 05:23 RBC Morphology Not Reportable 01/31/18 05:23 Dimorphic RBCs Not Reportable 01/31/18 05:23 Polychromasia Not Reportable 01/31/18 05:23 Hypochromasia Few 01/31/18 05:23 Poikilocytosis Not Reportable 01/31/18 05:23 Anisocytosis 1+ 01/31/18 05:23 Microcytosis Not Reportable 01/31/18 05:23 Macrocytosis Not Reportable 01/31/18 05:23 Spherocytes Not Reportable 01/31/18 05:23 Pappenheimer Bodies Not Reportable 01/31/18 05:23 Sickle Cells Not Reportable 01/31/18 05:23 Target Cells Not Reportable 01/31/18 05:23 Tear Drop Cells Not Reportable 01/31/18 05:23 Ovalocytes Not Reportable 01/31/18 05:23 Helmet Cells Not Reportable 01/31/18 05:23 [place] Bodies Not Reportable 01/31/18 05:23 [place] Rings Not Reportable 01/31/18 05:23 [place] Cells Not Reportable 01/31/18 05:23 Bite Cells Not Reportable 01/31/18 05:23 Crenated Cell Not Reportable 01/31/18 05:23 Elliptocytes Not Reportable 01/31/18 05:23 Acanthocytes (Spur) Not Reportable 01/31/18 05:23 Rouleaux Not Reportable 01/31/18 05:23 Hemoglobin C Crystals Not Reportable 01/31/18 05:23 Schistocytes Not Reportable 01/31/18 05:23 Malaria parasites Not Reportable 01/31/18 05:23 Krishna Bodies Not Reportable 01/31/18 05:23 Hem Pathologist Commnt No 01/31/18 05:23 Sodium 133 mmol/L (137-145) L 01/31/18 05:23 Potassium 3.8 mmol/L (3.6-5.0) 01/31/18 05:23 Chloride 97.2 mmol/L (98-107) L 01/31/18 05:23 Carbon Dioxide 26 mmol/L (22-30) 01/31/18 05:23 Anion Gap 14 mmol/L 01/31/18 05:23 BUN 9 mg/dL (9-20) 01/31/18 05:23 Creatinine 0.4 mg/dL (0.8-1.5) L 01/31/18 05:23 Estimated GFR > 60 ml/min 01/31/18 05:23 BUN/Creatinine Ratio 23 % 01/31/18 05:23 Glucose 248 mg/dL (75-100) H 01/31/18 05:23 POC Glucose 267 (70-105) H 01/31/18 12:40 Lactic Acid 1.60 mmol/L (0.7-2.0) 01/17/18 08:09 Calcium 7.8 mg/dL (8.4-10.2) L 01/31/18 05:23 Phosphorus 2.70 mg/dL (2.5-4.5) D 01/31/18 05:23 Magnesium 1.80 mg/dL (1.7-2.3) 01/31/18 05:23 Total Bilirubin 0.20 mg/dL (0.1-1.2) 01/30/18 09:58 AST 8 units/L (5-40) 01/30/18 09:58 ALT 7 units/L (7-56) 01/30/18 09:58 Alkaline Phosphatase 79 units/L (35-129) 01/30/18 09:58 Total Creatine Kinase 40 units/L (55-170) L 01/17/18 21:14 CK-MB (CK-2) 5.2 ng/mL (0.0-4.0) H 01/17/18 21:14 CK-MB (CK-2) Rel Index 13.0 (0-4) H 01/17/18 21:14 Troponin T < 0.010 ng/mL (0.00-0.029) 01/17/18 21:14 Total Protein 4.1 g/dL (6.3-8.2) L 01/30/18 09:58 Albumin 1.4 g/dL (3.9-5) L 01/30/18 09:58 Albumin/Globulin Ratio 0.5 % 01/30/18 09:58 Prealbumin 0.110 g/L (0.200-0.400) L 01/29/18 04:33 Triglycerides 47 mg/dL (2-149) 01/29/18 04:33 Cholesterol 47 mg/dL (50-199) L 01/29/18 04:33 LDL Cholesterol Direct 7 mg/dL (50-130) L 01/29/18 04:33 HDL Cholesterol 34 mg/dL (40-59) L 01/29/18 04:33 Cholesterol/HDL Ratio 1.38 % 01/29/18 04:33 Lipase 9 units/L (13-60) L 01/18/18 04:54 Urine Color Yellow (Yellow) 01/19/18 11:30 Urine Turbidity Clear (Clear) 01/19/18 11:30 Urine pH 5.0 (5.0-7.0) 01/19/18 11:30 Ur Specific [place] 1.016 (1.003-1.030) 01/19/18 11:30 Urine Protein <15 mg/dl mg/dL (Negative) 01/19/18 11:30 Urine Glucose (UA) Neg mg/dL (Negative) 01/19/18 11:30 Urine Ketones 20 mg/dL (Negative) 01/19/18 11:30 Urine Blood Sm (Negative) 01/19/18 11:30 Urine Nitrite Neg (Negative) 01/19/18 11:30 Urine Bilirubin Neg (Negative) 01/19/18 11:30 Urine Urobilinogen < 2.0 mg/dL (<2.0) 01/19/18 11:30 Ur Leukocyte Esterase Neg (Negative) 01/19/18 11:30 Urine WBC (Auto) 2.0 /HPF (0.0-6.0) 01/19/18 11:30 Urine RBC (Auto) < 1.0 /HPF (0.0-6.0) 01/19/18 11:30 U Epithel Cells (Auto) < 1.0 /HPF (0-13.0) 01/18/18 00:02 Hyaline Casts 12 /LPF 01/18/18 00:02 Urine Mucus Few /HPF 01/19/18 11:30 Blood Type O POSITIVE 01/27/18 05:30 Antibody Screen Negative 01/27/18 05:30 Crossmatch See Detail 01/27/18 05:30
[2018-01-31] MEDS: HumaLOG SUB-Q SCH ×2 (16:55→22:41)
[2018-01-31] MEDS: LEVAQUIN 750MG/150ML 750 MG/150 ML BAG IV SCH (18:09)
[2018-01-31] MEDS ORDERED: TPN ADULT 2,016 ML IV SCH (20:00)
[2018-02-01] MEDS: DILAUDID IV PRN ×3 (00:51→17:10)
[2018-02-01] MEDS: FLAGYL 500 MG/100 ML 500 MG/100 ML BAG IV SCH ×3 (05:48→21:48)
[2018-02-01] MEDS: HEPARIN SUB-Q SCH ×3 (05:51→21:56)
[2018-02-01] MEDS: ATIVAN IV PRN (05:55)
[2018-02-01 07:38] LABS: BUN/Creatinine Ratio 38; Blood Urea Nitrogen 15 mg/dL (9-20); Calcium 8.3 mg/dL (8.4-10.2); Hemolysis Index 0
--- NOTE | 2018-02-01 09:01 | Hem/Onc Progress Note ---
Assessment and Plan Confusion and hallucinations If continues, may need further evaluation. Pathology was reviewed. Has some signet ring cells malig in the fatty tissue on the specimen but otherwise no evidence of any residual malignancy. I explained it to the patient but not sure if he is able to comprehend currently. Subjective Date of service: 02/01/18 Interval history: Confused today. Nurse states that he did not receive any pain medications last night. Complains of pain. Objective - Constitutional Vitals: Last Vital Signs Temp 98.1 F 02/01/18 00:51 Pulse 95 H 02/01/18 00:51 Resp 20 02/01/18 00:51 BP 150/88 02/01/18 00:51 Pulse Ox 87 02/01/18 00:51 Performance status: 4-completely disabled - Neck Neck: supple - Respiratory Respiratory: bilateral: CTA - Cardiovascular Rhythm: regular Extremities: abnormal (edema) - Gastrointestinal General gastrointestinal: Present: soft - Labs Lab Results: Laboratory Results - last 24 hr 01/31/18 01/31/18 01/31/18 12:40 16:35 21:25 Sodium Potassium Chloride Carbon Dioxide Anion Gap BUN Creatinine Estimated GFR BUN/Creatinine Ratio Glucose POC Glucose 267 H 292 H 222 H Calcium Phosphorus Magnesium 02/01/18 07:11 Sodium 135 L Potassium 3.6 Chloride 96.2 L Carbon Dioxide 27 Anion Gap 15 BUN 15 Creatinine 0.4 L Estimated GFR > 60 BUN/Creatinine Ratio 38 Glucose 294 H POC Glucose Calcium 8.3 L Phosphorus 3.20 Magnesium 1.80
[2018-02-01] MEDS: HumaLOG SUB-Q SCH ×4 (09:20→21:54)
[2018-02-01] MEDS: PROTONIX IV SCH (10:22)
[2018-02-01] MEDS ORDERED: DILAUDID IV PRN (11:32)
--- NOTE | 2018-02-01 14:20 | Progress Note ---
Assessment and Plan 47 yo M s/p Exploratory laparotomy, lysis of adhesions, small bowel resection, right hemicolectomy, partial omentectomy, creation of end ileostomy and mucus fistula, application of wound vac, POD 4 1. 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 Crohn's disease 3. malnutiriton 4. sepsis 5. high grade small bowel obstruction s/p Exploratory laparotomy, lysis of adhesions, ileocecectomy with primary anastomosis on 01/17/18 Plan: 1. adv to consistent card diet with protein supplements 2. IV abx 3. PPI 4. DVT ppx 5. repeat lytes per TPN protocol 6. continue TPN, will wean if patient is tolerating diet 7. oncology on board, reviewed final path with Dr. Dai - will determine further treatment as outpatient 8. continue wound vac and ostomy care - wound care nurse consulted. Wound vac to be changed today 9. PRN pain control - changed to PO tramadol with breakthrough IV dialudid 10. OOB, PT 11. strict glucose control, ISS 12. taper steroids 13. nursing notes noted - patient confused overnight and this am. Likely due to ativan and dilaudid. Ativan dced and dilaudid dose decreased Subjective Date of service: 02/01/18 Narrative: Pt seen and examined. No acute complaints. Overnight and this am, patient reported to be confused and hallucinating. He is oriented at this time. He is tolerating liquids. He is ambulating. Afebrile. Pain controlled. Objective Vital Signs - 12hr 02/01/18 08:02 Temperature 97.7 F Respiratory 18 Rate Blood Pressure 141/84 - General physical appearance Narrative Exam: Gen: AAOx3. NAD CV: S1, S2+ Resp: even and unlabored Abd: soft, NT, ND. midline wound vac with good seal, no leak. Ileostomy and colostomy with stool output. Ext; no c/c/e - Labs 01/31/18 05:23 02/01/18 07:11 Diabetes panel 02/01/18 Range/Units 07:11 Sodium 135 L (137-145) mmol/L Potassium 3.6 (3.6-5.0) mmol/L Chloride 96.2 L (98-107) mmol/L Carbon Dioxide 27 (22-30) mmol/L BUN 15 (9-20) mg/dL Creatinine 0.4 L (0.8-1.5) mg/dL Glucose 294 H (75-100) mg/dL Calcium 8.3 L (8.4-10.2) mg/dL Calcium panel 02/01/18 Range/Units 07:11 Calcium 8.3 L (8.4-10.2) mg/dL Phosphorus 3.20 (2.5-4.5) mg/dL Pituitary panel 02/01/18 Range/Units 07:11 Sodium 135 L (137-145) mmol/L Potassium 3.6 (3.6-5.0) mmol/L Chloride 96.2 L (98-107) mmol/L Carbon Dioxide 27 (22-30) mmol/L BUN 15 (9-20) mg/dL Creatinine 0.4 L (0.8-1.5) mg/dL Glucose 294 H (75-100) mg/dL Calcium 8.3 L (8.4-10.2) mg/dL Adrenal panel 02/01/18 Range/Units 07:11 Sodium 135 L (137-145) mmol/L Potassium 3.6 (3.6-5.0) mmol/L Chloride 96.2 L (98-107) mmol/L Carbon Dioxide 27 (22-30) mmol/L BUN 15 (9-20) mg/dL Creatinine 0.4 L (0.8-1.5) mg/dL Glucose 294 H (75-100) mg/dL Calcium 8.3 L (8.4-10.2) mg/dL
--- NOTE | 2018-02-01 15:19 | Progress Note ---
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 -- s/p Exploratory laparotomy, lysis of adhesions, small bowel resection, right hemicolectomy, partial omentectomy, creation of end ileostomy and mucus fistula, application of wound vac, --Oncology following, will need PET scan following surgery --SIRS with suspected early sepsis due to above: blood cultures negative to date, IV fluids, Placed on empiric IV Zosyn ,Off abx now --Severe protein calorie malnutrition; hypoalbuminemia, nutrition supplements, supportive care --Crohn's disease with complications/stricture causing sbo s/p surgery, Continue Imuran and steroid, --Hypertension: On antihypertensives and when necessary medications --Tobacco/marijuana use: counseling done --DVT prophylaxis: Heparin --GI prophylaxis: iv protonix Continue physical therapy DC planning. Case management; possible home with home health when medically and surgically stable History Interval history: Patient seen and examined medical records reviewed Sleeping easily awakens Tolerating physical therapy, diet was advanced by surgery Blood sugars are slightly elevated partly secondary to steroid use We'll adjust insulin dosage No new events reported by nursing staff Vital signs reviewed Hospitalist Physical - Constitutional Vitals: Temp Pulse Resp BP Pulse Ox 97.7 F 95 H 18 141/84 87 02/01/18 08:02 02/01/18 00:51 02/01/18 08:02 02/01/18 08:02 02/01/18 00:51 General appearance: Present: no acute distress, well-nourished - EENT Eyes: Present: PERRL, EOM intact - Neck Neck: Present: supple, normal ROM - Respiratory Respiratory effort: normal Respiratory: negative: rales, rhonchi, wheezing - Cardiovascular Rhythm: regular Heart Sounds: Present: S1 & S2 - Extremities Extremities: no ischemia, No edema - Abdominal General gastrointestinal: soft, non-tender, non-distended, normal bowel sounds, other (colostomy in place) - Integumentary Integumentary: Present: clear, warm - Psychiatric Psychiatric: appropriate mood/affect, cooperative - Neurologic Neurologic: CNII-XII intact, moves all extremities Results - Labs CBC & Chem 7: 01/31/18 05:23 02/01/18 07:11 Labs: Laboratory Last Values WBC 9.7 K/mm3 (4.5-11.0) 01/31/18 05:23 RBC 3.18 M/mm3 (3.65-5.03) L 01/31/18 05:23 Hgb 9.0 gm/dl (11.8-15.2) L 01/31/18 05:23 Hct 26.8 % (35.5-45.6) L 01/31/18 05:23 MCV 85 fl (84-94) 01/31/18 05:23 MCH 28 pg (28-32) 01/31/18 05:23 MCHC 33 % (32-34) 01/31/18 05:23 RDW 17.2 % (13.2-15.2) H 01/31/18 05:23 Plt Count 188 K/mm3 (140-440) 01/31/18 05:23 Lymph % (Auto) 13.7 % (13.4-35.0) 01/17/18 04:41 [place] % (Auto) 13.0 % (0.0-7.3) H 01/17/18 04:41 Eos % (Auto) 0.3 % (0.0-4.3) 01/17/18 04:41 Baso % (Auto) 0.3 % (0.0-1.8) 01/17/18 04:41 Lymph # 1.1 K/mm3 (1.2-5.4) L 01/17/18 04:41 [place] # 1.0 K/mm3 (0.0-0.8) H 01/17/18 04:41 Eos # 0.0 K/mm3 (0.0-0.4) 01/17/18 04:41 Baso # 0.0 K/mm3 (0.0-0.1) 01/17/18 04:41 Add Manual Diff Complete 01/31/18 05:23 Total Counted 100 01/31/18 05:23 Seg Neutrophils % Insurance Licensing Supervisor 01/31/18 05:23 Seg Neuts % (Manual) 89.0 % (40.0-70.0) H 01/31/18 05:23 Band Neutrophils % 8.0 % 01/31/18 05:23 Lymphocytes % (Manual) 2.0 % (13.4-35.0) L 01/31/18 05:23 Reactive Lymphs % (Man) 0 % 01/31/18 05:23 Monocytes % (Manual) 1.0 % (0.0-7.3) 01/31/18 05:23 Eosinophils % (Manual) 0 % (0.0-4.3) 01/31/18 05:23 Basophils % (Manual) 0 % (0.0-1.8) 01/31/18 05:23 Metamyelocytes % 0 % 01/31/18 05:23 Myelocytes % 0 % 01/31/18 05:23 Promyelocytes % 0 % 01/31/18 05:23 Blast Cells % 0 % 01/31/18 05:23 Nucleated RBC % Not Reportable 01/31/18 05:23 Seg Neutrophils # 5.6 K/mm3 (1.8-7.7) 01/17/18 04:41 Seg Neutrophils # Man 8.6 K/mm3 (1.8-7.7) H 01/31/18 05:23 Band Neutrophils # 0.8 K/mm3 01/31/18 05:23 Lymphocytes # (Manual) 0.2 K/mm3 (1.2-5.4) L 01/31/18 05:23 Abs React Lymphs (Man) 0.0 K/mm3 01/31/18 05:23 Monocytes # (Manual) 0.1 K/mm3 (0.0-0.8) 01/31/18 05:23 Eosinophils # (Manual) 0.0 K/mm3 (0.0-0.4) 01/31/18 05:23 Basophils # (Manual) 0.0 K/mm3 (0.0-0.1) 01/31/18 05:23 Metamyelocytes # 0.0 K/mm3 01/31/18 05:23 Myelocytes # 0.0 K/mm3 01/31/18 05:23 Promyelocytes # 0.0 K/mm3 01/31/18 05:23 Blast Cells # 0.0 K/mm3 01/31/18 05:23 WBC Morphology Not Reportable 01/31/18 05:23 Hypersegmented Neuts Not Reportable 01/31/18 05:23 Hyposegmented Neuts Not Reportable 01/31/18 05:23 Hypogranular Neuts Not Reportable 01/31/18 05:23 Smudge Cells Not Reportable 01/31/18 05:23 Toxic Granulation Not Reportable 01/31/18 05:23 Toxic Vacuolation Not Reportable 01/31/18 05:23 Dohle Bodies Not Reportable 01/31/18 05:23 Pelger-Huet Anomaly Not Reportable 01/31/18 05:23 Christina Rods Not Reportable 01/31/18 05:23 Platelet Estimate Appears normal 01/31/18 05:23 Clumped Platelets Not Reportable 01/31/18 05:23 Plt Clumps, EDTA Not Reportable 01/31/18 05:23 Large Platelets Not Reportable 01/31/18 05:23 Giant Platelets Not Reportable 01/31/18 05:23 Platelet Satelliting Not Reportable 01/31/18 05:23 Plt Morphology Comment Not Reportable 01/31/18 05:23 RBC Morphology Not Reportable 01/31/18 05:23 Dimorphic RBCs Not Reportable 01/31/18 05:23 Polychromasia Not Reportable 01/31/18 05:23 Hypochromasia Few 01/31/18 05:23 Poikilocytosis Not Reportable 01/31/18 05:23 Anisocytosis 1+ 01/31/18 05:23 Microcytosis Not Reportable 01/31/18 05:23 Macrocytosis Not Reportable 01/31/18 05:23 Spherocytes Not Reportable 01/31/18 05:23 Pappenheimer Bodies Not Reportable 01/31/18 05:23 Sickle Cells Not Reportable 01/31/18 05:23 Target Cells Not Reportable 01/31/18 05:23 Tear Drop Cells Not Reportable 01/31/18 05:23 Ovalocytes Not Reportable 01/31/18 05:23 Helmet Cells Not Reportable 01/31/18 05:23 [place] Bodies Not Reportable 01/31/18 05:23 [place] Rings Not Reportable 01/31/18 05:23 [place] Cells Not Reportable 01/31/18 05:23 Bite Cells Not Reportable 01/31/18 05:23 Crenated Cell Not Reportable 01/31/18 05:23 Elliptocytes Not Reportable 01/31/18 05:23 Acanthocytes (Spur) Not Reportable 01/31/18 05:23 Rouleaux Not Reportable 01/31/18 05:23 Hemoglobin C Crystals Not Reportable 01/31/18 05:23 Schistocytes Not Reportable 01/31/18 05:23 Malaria parasites Not Reportable 01/31/18 05:23 Krishna Bodies Not Reportable 01/31/18 05:23 Hem Pathologist Commnt No 01/31/18 05:23 Sodium 135 mmol/L (137-145) L 02/01/18 07:11 Potassium 3.6 mmol/L (3.6-5.0) 02/01/18 07:11 Chloride 96.2 mmol/L (98-107) L 02/01/18 07:11 Carbon Dioxide 27 mmol/L (22-30) 02/01/18 07:11 Anion Gap 15 mmol/L 02/01/18 07:11 BUN 15 mg/dL (9-20) 02/01/18 07:11 Creatinine 0.4 mg/dL (0.8-1.5) L 02/01/18 07:11 Estimated GFR > 60 ml/min 02/01/18 07:11 BUN/Creatinine Ratio 38 % 02/01/18 07:11 Glucose 294 mg/dL (75-100) H 02/01/18 07:11 POC Glucose 226 (70-105) H 02/01/18 12:05 Lactic Acid 1.60 mmol/L (0.7-2.0) 01/17/18 08:09 Calcium 8.3 mg/dL (8.4-10.2) L 02/01/18 07:11 Phosphorus 3.20 mg/dL (2.5-4.5) 02/01/18 07:11 Magnesium 1.80 mg/dL (1.7-2.3) 02/01/18 07:11 Total Bilirubin 0.20 mg/dL (0.1-1.2) 01/30/18 09:58 AST 8 units/L (5-40) 01/30/18 09:58 ALT 7 units/L (7-56) 01/30/18 09:58 Alkaline Phosphatase 79 units/L (35-129) 01/30/18 09:58 Total Creatine Kinase 40 units/L (55-170) L 01/17/18 21:14 CK-MB (CK-2) 5.2 ng/mL (0.0-4.0) H 01/17/18 21:14 CK-MB (CK-2) Rel Index 13.0 (0-4) H 01/17/18 21:14 Troponin T < 0.010 ng/mL (0.00-0.029) 01/17/18 21:14 Total Protein 4.1 g/dL (6.3-8.2) L 01/30/18 09:58 Albumin 1.4 g/dL (3.9-5) L 01/30/18 09:58 Albumin/Globulin Ratio 0.5 % 01/30/18 09:58 Prealbumin 0.110 g/L (0.200-0.400) L 01/29/18 04:33 Triglycerides 47 mg/dL (2-149) 01/29/18 04:33 Cholesterol 47 mg/dL (50-199) L 01/29/18 04:33 LDL Cholesterol Direct 7 mg/dL (50-130) L 01/29/18 04:33 HDL Cholesterol 34 mg/dL (40-59) L 01/29/18 04:33 Cholesterol/HDL Ratio 1.38 % 01/29/18 04:33 Lipase 9 units/L (13-60) L 01/18/18 04:54 Urine Color Yellow (Yellow) 01/19/18 11:30 Urine Turbidity Clear (Clear) 01/19/18 11:30 Urine pH 5.0 (5.0-7.0) 01/19/18 11:30 Ur Specific [place] 1.016 (1.003-1.030) 01/19/18 11:30 Urine Protein <15 mg/dl mg/dL (Negative) 01/19/18 11:30 Urine Glucose (UA) Neg mg/dL (Negative) 01/19/18 11:30 Urine Ketones 20 mg/dL (Negative) 01/19/18 11:30 Urine Blood Sm (Negative) 01/19/18 11:30 Urine Nitrite Neg (Negative) 01/19/18 11:30 Urine Bilirubin Neg (Negative) 01/19/18 11:30 Urine Urobilinogen < 2.0 mg/dL (<2.0) 01/19/18 11:30 Ur Leukocyte Esterase Neg (Negative) 01/19/18 11:30 Urine WBC (Auto) 2.0 /HPF (0.0-6.0) 01/19/18 11:30 Urine RBC (Auto) < 1.0 /HPF (0.0-6.0) 01/19/18 11:30 U Epithel Cells (Auto) < 1.0 /HPF (0-13.0) 01/18/18 00:02 Hyaline Casts 12 /LPF 01/18/18 00:02 Urine Mucus Few /HPF 01/19/18 11:30 Blood Type O POSITIVE 01/27/18 05:30 Antibody Screen Negative 01/27/18 05:30 Crossmatch See Detail 01/27/18 05:30
[2018-02-01] MEDS: LEVAQUIN 750MG/150ML 750 MG/150 ML BAG IV SCH (17:34)
[2018-02-01] MEDS ORDERED: TPN ADULT 2,016 ML IV SCH (20:00)
[2018-02-01] MEDS: ULTRAM PO PRN (21:49)
[2018-02-02] MEDS: DILAUDID IV PRN ×2 (01:46→11:05)
[2018-02-02] MEDS: HEPARIN SUB-Q SCH ×3 (05:19→21:23)
[2018-02-02] MEDS: FLAGYL 500 MG/100 ML 500 MG/100 ML BAG IV SCH ×3 (05:19→21:13)
[2018-02-02] MEDS: ULTRAM PO PRN (05:20)
[2018-02-02 06:18] LABS: Hematocrit 23.9 % (35.5-45.6); Hemoglobin 7.8 gm/dl (11.8-15.2); Mean Corpuscular HGB Conc 33 % (32-34); Mean Corpuscular Hemoglobin 28 pg (28-32); Mean Corpuscular Volume 85 fl (84-94); Platelet Count 149 K/mm3 (140-440); Red Blood Count 2.83 M/mm3 (3.65-5.03); Red Cell Distribution Width 16.5 % (13.2-15.2)
[2018-02-02 06:28] LABS: Alanine Aminotransferase 7 units/L (7-56); Albumin 1.8 g/dL (3.9-5); BUN/Creatinine Ratio 48; Blood Urea Nitrogen 19 mg/dL (9-20); Calcium 7.9 mg/dL (8.4-10.2); Hemolysis Index 0
[2018-02-02] MEDS: HumaLOG SUB-Q SCH ×4 (09:03→22:46)
[2018-02-02] MEDS: PROTONIX PO SCH (09:14)
[2018-02-02] MEDS ORDERED: K-DUR PO ONE (09:46)
[2018-02-02 10:25] LABS: Anisocytosis 1+; Basophils % (Manual) 0 % (0.0-1.8); Eosinophils % (Manual) 0 % (0.0-4.3); Total Cells Counted 100
[2018-02-02 10:26] LABS: Platelet Estimate Consistent w Auto
[2018-02-02] MEDS ORDERED: DILAUDID IM ONE (12:00)
[2018-02-02] MEDS: XANAX PO PRN ×2 (14:28→22:36)
--- NOTE | 2018-02-02 14:30 | Progress Note ---
Assessment and Plan 47 yo M s/p Exploratory laparotomy, lysis of adhesions, small bowel resection, right hemicolectomy, partial omentectomy, creation of end ileostomy and mucus fistula, application of wound vac, POD 5 1. 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 Crohn's disease 3. malnutiriton 4. sepsis 5. high grade small bowel obstruction s/p Exploratory laparotomy, lysis of adhesions, ileocecectomy with primary anastomosis on 01/17/18 Plan: 1. consistent carb diet with protein supplements 2. IV abx 3. PPI 4. DVT ppx 5. repeat lytes per TPN protocol 6. continue TPN, wean to half calories to supplement oral nutrition which is still poor. Will dc on Sunday. D/W insulation inspector 7. reviewed final path with Dr. Dai - will determine further treatment as outpatient. The patient was updated of this plan 8. continue wound vac and ostomy care per wound care nurse 9. PRN pain control - changed to PO dilaudid 10. OOB, PT 11. strict glucose control, ISS 12. c/w steroid taper 13. offered patient psych consult secondary to new cancer diagnosis and complex surgery and he is agreeable - psych to be consulted D/W Dr. Cabrera Subjective Date of service: 02/02/18 Narrative: Patient seen and examined. He complains of pain which is not controlled with tramadol. He also states that he feels very depressed secondary to his new cancer diagnosis. Psych consult was offered to him previously but he declined. The patient is now agreeable to speak with psychiatry. In addition, the patient states that his ileostomy bag has been leaking and was reinforced by nursing however continues to leak. He is tolerating a diet. His appetite is poor. He denies nausea or vomiting. No fevers or chills. He is ambulating Objective Vital Signs - 12hr 02/02/18 02/02/18 02/02/18 07:27 07:35 11:05 Temperature 97.8 F 97.8 F Pulse Rate 56 L 58 L Respiratory 18 18 20 Rate Respiratory Rate [Abdomen] Blood Pressure 138/71 138/71 [Left] O2 Sat by Pulse 96 100 Oximetry 02/02/18 02/02/18 02/02/18 11:35 12:00 12:01 Temperature 97.9 F Pulse Rate 55 L Respiratory 20 20 20 Rate Respiratory Rate [Abdomen] Blood Pressure 141/81 [Left] O2 Sat by Pulse 97 Oximetry 02/02/18 02/02/18 12:30 12:31 Temperature Pulse Rate Respiratory 20 Rate Respiratory 18 Rate [Abdomen] Blood Pressure [Left] O2 Sat by Pulse Oximetry - General physical appearance Narrative Exam: General: Awake, alert, oriented 3. ENT: No scleral icterus or conjunctival pallor Respiratory: Even and unlabored Abdomen: Soft, nondistended, tender near midline incision. Wound VAC and midline incision has a good seal. The mucous fistula has brown stool in the bag. The ileostomy has a copious amount of brown liquid stool in the bag and is leaking around the bag and into the area of the wound VAC. Colostomy appliance around ileostomy was carefully removed and ileostomy covered with a towel. The stool was involving the dressing of the wound VAC and therefore the wound VAC was carefully removed. One piece of black sponge and Adaptic was removed from the wound bed. The wound bed was clean with evidence of granulation tissue. There was no stool in or around the wound bed. The skin around the midline incision was cleansed with wound cleanser. Skin prep and Mastisol was applied to the skin around the midline wound. One piece of Adaptic was applied to the wound bed. One piece of black sponge was cut to size and placed into the wound. A Tegaderm dressing was applied and the wound VAC was applied in the usual fashion. He was placed in continuous -1 25 mmHg suction. There was no leak. There was a good seal. The skin around the ileostomy was then cleansed and Mastisol applied. A new two -piece colostomy appliance was applied. There was a good seal and no leakage around the appliance. Extremities: No clubbing, cyanosis, edema - Labs 02/02/18 06:00 02/02/18 06:00 Diabetes panel 02/02/18 Range/Units 06:00 Sodium 134 L (137-145) mmol/L Potassium 3.3 L (3.6-5.0) mmol/L Chloride 97.5 L (98-107) mmol/L Carbon Dioxide 26 (22-30) mmol/L BUN 19 (9-20) mg/dL Creatinine 0.4 L (0.8-1.5) mg/dL Glucose 207 H (75-100) mg/dL Calcium 7.9 L (8.4-10.2) mg/dL AST 7 (5-40) units/L ALT 7 (7-56) units/L Alkaline Phosphatase 84 (35-129) units/L Total Protein 4.5 L (6.3-8.2) g/dL Albumin 1.8 L (3.9-5) g/dL Calcium panel 02/02/18 02/02/18 Range/Units 06:00 06:00 Calcium 7.9 L (8.4-10.2) mg/dL Phosphorus 3.30 (2.5-4.5) mg/dL Albumin 1.8 L (3.9-5) g/dL Pituitary panel 02/02/18 Range/Units 06:00 Sodium 134 L (137-145) mmol/L Potassium 3.3 L (3.6-5.0) mmol/L Chloride 97.5 L (98-107) mmol/L Carbon Dioxide 26 (22-30) mmol/L BUN 19 (9-20) mg/dL Creatinine 0.4 L (0.8-1.5) mg/dL Glucose 207 H (75-100) mg/dL Calcium 7.9 L (8.4-10.2) mg/dL Adrenal panel 02/02/18 Range/Units 06:00 Sodium 134 L (137-145) mmol/L Potassium 3.3 L (3.6-5.0) mmol/L Chloride 97.5 L (98-107) mmol/L Carbon Dioxide 26 (22-30) mmol/L BUN 19 (9-20) mg/dL Creatinine 0.4 L (0.8-1.5) mg/dL Glucose 207 H (75-100) mg/dL Calcium 7.9 L (8.4-10.2) mg/dL Total Bilirubin < 0.20 (0.1-1.2) mg/dL AST 7 (5-40) units/L ALT 7 (7-56) units/L Alkaline Phosphatase 84 (35-129) units/L Total Protein 4.5 L (6.3-8.2) g/dL Albumin 1.8 L (3.9-5) g/dL
--- NOTE | 2018-02-02 16:52 | Progress Note ---
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 -- s/p Exploratory laparotomy, lysis of adhesions, small bowel resection, right hemicolectomy, partial omentectomy, creation of end ileostomy and mucus fistula, application of wound vac, Diet advanced by surgery, titrate and DC TPN --Oncology following,PET scan as outpatient --SIRS with suspected early sepsis resolved --Severe protein calorie malnutrition; hypoalbuminemia, nutrition supplements, supportive care --Crohn's disease with complications/stricture causing sbo s/p surgery, Continue Imuran and steroid, --Hypertension: On antihypertensives and when necessary medications --Tobacco/marijuana use: counseling done --DVT prophylaxis: Heparin --GI prophylaxis: iv protonix Continue physical therapy DC planning. Case management; possible home with home health when medically and surgically stable History Interval history: Patient seen and examined medical records reviewed No new events reported by the nursing staff Patient is Depressed, denies suicidal ideation or suicidal thoughts Alert awake oriented 3 Vital signs reviewed Hospitalist Physical - Constitutional Vitals: Temp Pulse Resp BP Pulse Ox 98.1 F 60 20 119/70 96 02/02/18 16:20 02/02/18 16:20 02/02/18 16:20 02/02/18 16:20 02/02/18 16:20 General appearance: Present: no acute distress, well-nourished - EENT Eyes: Present: PERRL, EOM intact - Neck Neck: Present: supple, normal ROM - Respiratory Respiratory effort: normal Respiratory: bilateral: diminished, negative: rales, rhonchi, wheezing - Cardiovascular Rhythm: regular Heart Sounds: Present: S1 & S2 - Extremities Extremities: no ischemia, No edema - Abdominal General gastrointestinal: soft, non-tender, non-distended, other (colostomy in place, surgical scars clean) - Integumentary Integumentary: Present: clear, warm - Psychiatric Psychiatric: appropriate mood/affect, cooperative - Neurologic Neurologic: CNII-XII intact, moves all extremities Results - Labs CBC & Chem 7: 02/02/18 06:00 02/02/18 06:00 Labs: Laboratory Last Values WBC 4.4 K/mm3 (4.5-11.0) L 02/02/18 06:00 RBC 2.83 M/mm3 (3.65-5.03) L 02/02/18 06:00 Hgb 7.8 gm/dl (11.8-15.2) L 02/02/18 06:00 Hct 23.9 % (35.5-45.6) L 02/02/18 06:00 MCV 85 fl (84-94) 02/02/18 06:00 MCH 28 pg (28-32) 02/02/18 06:00 MCHC 33 % (32-34) 02/02/18 06:00 RDW 16.5 % (13.2-15.2) H 02/02/18 06:00 Plt Count 149 K/mm3 (140-440) 02/02/18 06:00 Lymph % (Auto) 13.7 % (13.4-35.0) 01/17/18 04:41 [place] % (Auto) 13.0 % (0.0-7.3) H 01/17/18 04:41 Eos % (Auto) 0.3 % (0.0-4.3) 01/17/18 04:41 Baso % (Auto) 0.3 % (0.0-1.8) 01/17/18 04:41 Lymph # 1.1 K/mm3 (1.2-5.4) L 01/17/18 04:41 [place] # 1.0 K/mm3 (0.0-0.8) H 01/17/18 04:41 Eos # 0.0 K/mm3 (0.0-0.4) 01/17/18 04:41 Baso # 0.0 K/mm3 (0.0-0.1) 01/17/18 04:41 Add Manual Diff Complete 02/02/18 06:00 Total Counted 100 02/02/18 06:00 Seg Neutrophils % Civil Cad Designer 02/02/18 06:00 Seg Neuts % (Manual) 93.0 % (40.0-70.0) H 02/02/18 06:00 Band Neutrophils % 1.0 % 02/02/18 06:00 Lymphocytes % (Manual) 2.0 % (13.4-35.0) L 02/02/18 06:00 Reactive Lymphs % (Man) 0 % 02/02/18 06:00 Monocytes % (Manual) 4.0 % (0.0-7.3) 02/02/18 06:00 Eosinophils % (Manual) 0 % (0.0-4.3) 02/02/18 06:00 Basophils % (Manual) 0 % (0.0-1.8) 02/02/18 06:00 Metamyelocytes % 0 % 02/02/18 06:00 Myelocytes % 0 % 02/02/18 06:00 Promyelocytes % 0 % 02/02/18 06:00 Blast Cells % 0 % 02/02/18 06:00 Nucleated RBC % Not Reportable 02/02/18 06:00 Seg Neutrophils # 5.6 K/mm3 (1.8-7.7) 01/17/18 04:41 Seg Neutrophils # Man 4.1 K/mm3 (1.8-7.7) 02/02/18 06:00 Band Neutrophils # 0.0 K/mm3 02/02/18 06:00 Lymphocytes # (Manual) 0.1 K/mm3 (1.2-5.4) L 02/02/18 06:00 Abs React Lymphs (Man) 0.0 K/mm3 02/02/18 06:00 Monocytes # (Manual) 0.2 K/mm3 (0.0-0.8) 02/02/18 06:00 Eosinophils # (Manual) 0.0 K/mm3 (0.0-0.4) 02/02/18 06:00 Basophils # (Manual) 0.0 K/mm3 (0.0-0.1) 02/02/18 06:00 Metamyelocytes # 0.0 K/mm3 02/02/18 06:00 Myelocytes # 0.0 K/mm3 02/02/18 06:00 Promyelocytes # 0.0 K/mm3 02/02/18 06:00 Blast Cells # 0.0 K/mm3 02/02/18 06:00 WBC Morphology Not Reportable 02/02/18 06:00 Hypersegmented Neuts Not Reportable 02/02/18 06:00 Hyposegmented Neuts Not Reportable 02/02/18 06:00 Hypogranular Neuts Not Reportable 02/02/18 06:00 Smudge Cells Not Reportable 02/02/18 06:00 Toxic Granulation Not Reportable 02/02/18 06:00 Toxic Vacuolation Not Reportable 02/02/18 06:00 Dohle Bodies Not Reportable 02/02/18 06:00 Pelger-Huet Anomaly Not Reportable 02/02/18 06:00 Christina Rods Not Reportable 02/02/18 06:00 Platelet Estimate Consistent w auto 02/02/18 06:00 Clumped Platelets Not Reportable 02/02/18 06:00 Plt Clumps, EDTA Not Reportable 02/02/18 06:00 Large Platelets Not Reportable 02/02/18 06:00 Giant Platelets Not Reportable 02/02/18 06:00 Platelet Satelliting Not Reportable 02/02/18 06:00 Plt Morphology Comment Not Reportable 02/02/18 06:00 RBC Morphology Not Reportable 02/02/18 06:00 Dimorphic RBCs Not Reportable 02/02/18 06:00 Polychromasia Not Reportable 02/02/18 06:00 Hypochromasia Not Reportable 02/02/18 06:00 Poikilocytosis Not Reportable 02/02/18 06:00 Anisocytosis 1+ 02/02/18 06:00 Microcytosis Not Reportable 02/02/18 06:00 Macrocytosis Not Reportable 02/02/18 06:00 Spherocytes Not Reportable 02/02/18 06:00 Pappenheimer Bodies Not Reportable 02/02/18 06:00 Sickle Cells Not Reportable 02/02/18 06:00 Target Cells Not Reportable 02/02/18 06:00 Tear Drop Cells Not Reportable 02/02/18 06:00 Ovalocytes Not Reportable 02/02/18 06:00 Helmet Cells Not Reportable 02/02/18 06:00 [place] Bodies Not Reportable 02/02/18 06:00 [place] Rings Not Reportable 02/02/18 06:00 [place] Cells Not Reportable 02/02/18 06:00 Bite Cells Not Reportable 02/02/18 06:00 Crenated Cell Not Reportable 02/02/18 06:00 Elliptocytes Not Reportable 02/02/18 06:00 Acanthocytes (Spur) Not Reportable 02/02/18 06:00 Rouleaux Not Reportable 02/02/18 06:00 Hemoglobin C Crystals Not Reportable 02/02/18 06:00 Schistocytes Not Reportable 02/02/18 06:00 Malaria parasites Not Reportable 02/02/18 06:00 Krishna Bodies Not Reportable 02/02/18 06:00 Hem Pathologist Commnt No 02/02/18 06:00 Sodium 134 mmol/L (137-145) L 02/02/18 06:00 Potassium 3.3 mmol/L (3.6-5.0) L 02/02/18 06:00 Chloride 97.5 mmol/L (98-107) L 02/02/18 06:00 Carbon Dioxide 26 mmol/L (22-30) 02/02/18 06:00 Anion Gap 14 mmol/L 02/02/18 06:00 BUN 19 mg/dL (9-20) 02/02/18 06:00 Creatinine 0.4 mg/dL (0.8-1.5) L 02/02/18 06:00 Estimated GFR > 60 ml/min 02/02/18 06:00 BUN/Creatinine Ratio 48 % 02/02/18 06:00 Glucose 207 mg/dL (75-100) H 02/02/18 06:00 POC Glucose 195 (70-105) H 02/02/18 16:43 Lactic Acid 1.60 mmol/L (0.7-2.0) 01/17/18 08:09 Calcium 7.9 mg/dL (8.4-10.2) L 02/02/18 06:00 Phosphorus 3.30 mg/dL (2.5-4.5) 02/02/18 06:00 Magnesium 1.80 mg/dL (1.7-2.3) 02/02/18 06:00 Total Bilirubin < 0.20 mg/dL (0.1-1.2) 02/02/18 06:00 AST 7 units/L (5-40) 02/02/18 06:00 ALT 7 units/L (7-56) 02/02/18 06:00 Alkaline Phosphatase 84 units/L (35-129) 02/02/18 06:00 Total Creatine Kinase 40 units/L (55-170) L 01/17/18 21:14 CK-MB (CK-2) 5.2 ng/mL (0.0-4.0) H 01/17/18 21:14 CK-MB (CK-2) Rel Index 13.0 (0-4) H 01/17/18 21:14 Troponin T < 0.010 ng/mL (0.00-0.029) 01/17/18 21:14 Total Protein 4.5 g/dL (6.3-8.2) L 02/02/18 06:00 Albumin 1.8 g/dL (3.9-5) L 02/02/18 06:00 Albumin/Globulin Ratio 0.7 % 02/02/18 06:00 Prealbumin 0.110 g/L (0.200-0.400) L 01/29/18 04:33 Triglycerides 47 mg/dL (2-149) 01/29/18 04:33 Cholesterol 47 mg/dL (50-199) L 01/29/18 04:33 LDL Cholesterol Direct 7 mg/dL (50-130) L 01/29/18 04:33 HDL Cholesterol 34 mg/dL (40-59) L 01/29/18 04:33 Cholesterol/HDL Ratio 1.38 % 01/29/18 04:33 Lipase 9 units/L (13-60) L 01/18/18 04:54 Urine Color Yellow (Yellow) 01/19/18 11:30 Urine Turbidity Clear (Clear) 01/19/18 11:30 Urine pH 5.0 (5.0-7.0) 01/19/18 11:30 Ur Specific [place] 1.016 (1.003-1.030) 01/19/18 11:30 Urine Protein <15 mg/dl mg/dL (Negative) 01/19/18 11:30 Urine Glucose (UA) Neg mg/dL (Negative) 01/19/18 11:30 Urine Ketones 20 mg/dL (Negative) 01/19/18 11:30 Urine Blood Sm (Negative) 01/19/18 11:30 Urine Nitrite Neg (Negative) 01/19/18 11:30 Urine Bilirubin Neg (Negative) 01/19/18 11:30 Urine Urobilinogen < 2.0 mg/dL (<2.0) 01/19/18 11:30 Ur Leukocyte Esterase Neg (Negative) 01/19/18 11:30 Urine WBC (Auto) 2.0 /HPF (0.0-6.0) 01/19/18 11:30 Urine RBC (Auto) < 1.0 /HPF (0.0-6.0) 01/19/18 11:30 U Epithel Cells (Auto) < 1.0 /HPF (0-13.0) 01/18/18 00:02 Hyaline Casts 12 /LPF 01/18/18 00:02 Urine Mucus Few /HPF 01/19/18 11:30 Blood Type O POSITIVE 01/27/18 05:30 Antibody Screen Negative 01/27/18 05:30 Crossmatch See Detail 01/27/18 05:30
[2018-02-02] MEDS: DILAUDID PO PRN ×2 (17:23→22:36)
[2018-02-02] MEDS: LEVAQUIN 750MG/150ML 750 MG/150 ML BAG IV SCH (17:30)
[2018-02-02] MEDS ORDERED: TPN ADULT 2,016 ML IV SCH (20:00)
[2018-02-02 21:00] LABS: Basophils % (Auto) 0.1 % (0.0-1.8); Hemoglobin 7.8 gm/dl (11.8-15.2); Lymphocytes # (Auto) 0.2 K/mm3 (1.2-5.4); Lymphocytes % (Auto) 3.8 % (13.4-35.0); Mean Corpuscular HGB Conc 33 % (32-34); Mean Corpuscular Hemoglobin 28 pg (28-32); Mean Corpuscular Volume 85 fl (84-94); Monocytes # (Auto) 0.3 K/mm3 (0.0-0.8); Monocytes % (Auto) 7.1 % (0.0-7.3); Platelet Count 136 K/mm3 (140-440); Red Blood Count 2.83 M/mm3 (3.65-5.03); Red Cell Distribution Width 16.6 % (13.2-15.2)
[2018-02-02 21:17] LABS: BUN/Creatinine Ratio 48; Blood Urea Nitrogen 19 mg/dL (9-20); Calcium 7.8 mg/dL (8.4-10.2); Hemolysis Index 0
[2018-02-03] MEDS: DILAUDID PO PRN ×2 (04:47→09:55)
[2018-02-03 04:57] LABS: BUN/Creatinine Ratio 43; Blood Urea Nitrogen 17 mg/dL (9-20); Calcium 8.4 mg/dL (8.4-10.2); Hemolysis Index 0
[2018-02-03] MEDS: HumaLOG SUB-Q SCH ×3 (05:07→17:05)
[2018-02-03] MEDS: FLAGYL 500 MG/100 ML 500 MG/100 ML BAG IV SCH ×3 (05:16→21:25)
[2018-02-03] MEDS: HEPARIN SUB-Q SCH ×3 (05:16→21:25)
[2018-02-03] MEDS: XANAX PO PRN (06:37)
[2018-02-03] MEDS ORDERED: KIONEX PR ONE (07:00)
[2018-02-03 08:17] LABS: BUN/Creatinine Ratio 45; Blood Urea Nitrogen 18 mg/dL (9-20); Calcium 8.7 mg/dL (8.4-10.2); Hemolysis Index 0
[2018-02-03] MEDS: PROTONIX PO SCH (09:54)
[2018-02-03] MEDS: DILAUDID IV PRN ×3 (13:35→21:44)
--- NOTE | 2018-02-03 13:50 | Progress Note ---
Assessment and Plan 47 yo M s/p Exploratory laparotomy, lysis of adhesions, small bowel resection, right hemicolectomy, partial omentectomy, creation of end ileostomy and mucus fistula, application of wound vac, POD 6 1. 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 Crohn's disease 3. malnutiriton 4. sepsis 5. high grade small bowel obstruction s/p Exploratory laparotomy, lysis of adhesions, ileocecectomy with primary anastomosis on 01/17/18 Plan: 1. consistent carb diet with protein supplements 2. IV abx - dc in am tomorrow 3. PPI 4. DVT ppx 5. Labs suspicious for being drawn from PICC and resemble TPN lytes. D/W nursing who confirmed this. Pt received medications for presumed elevated K based on labs this am. REPEAT BMP, MG, PHOS STAT via direct vein stick. will replace lytes as needed 6. dc TPN in am tomorrow 7. reviewed final path with Dr. Dai - will determine further treatment as outpatient. The patient was updated of this plan 8. continue wound vac and ostomy care per wound care nurse 9. PRN pain control - will change to PO percocet 10. OOB, PT 11. strict glucose control, ISS 12. c/w steroid taper 13. psych consult pending 14. dc planning per 1' with home health care and follow up in wound care clinic D/W Dr. Cabrera. Subjective Date of service: 02/03/18 Narrative: Pt seen and examined. He wants to go home soon. He states his abdominal pain was better controlled with percocet. He has been tolerating a regular diet without n/v. No f/c. His ileostomy has had high output and is being drained every hour per nursing. No additional leakage from bag. He is ambulating on his own. Objective Vital Signs - 12hr 02/03/18 02/03/18 02/03/18 04:47 05:47 09:00 Temperature 98.1 F Pulse Rate 65 Respiratory 18 18 18 Rate Blood Pressure 135/74 [Left] O2 Sat by Pulse 97 Oximetry - General physical appearance Narrative Exam: Gen: AAOx3. NAD. CV: S1, S2+ Resp: No audible wheezes Abd: soft, NT, ND. midline wound vac in place, no leak. Ileostomy with liquid brown stool in bag. Colostomy with semiformed brown stool in bag. Ext: mild pedal edema b/l - Labs 02/02/18 20:48 02/03/18 07:45 Diabetes panel 02/02/18 02/03/18 02/03/18 Range/Units 20:48 04:43 07:45 Sodium 137 129 L D 128 L (137-145) mmol/L Potassium 3.4 L 6.5 H* D 6.5 H* (3.6-5.0) mmol/L Chloride 101.0 96.3 L 96.9 L (98-107) mmol/L Carbon Dioxide 24 22 22 (22-30) mmol/L BUN 19 17 18 (9-20) mg/dL Creatinine 0.4 L 0.4 L 0.4 L (0.8-1.5) mg/dL Glucose 180 H 604 H* 665 H* (75-100) mg/dL Calcium 7.8 L 8.4 8.7 (8.4-10.2) mg/dL Calcium panel 02/02/18 02/03/18 02/03/18 Range/Units 20:48 04:43 07:45 Calcium 7.8 L 8.4 8.7 (8.4-10.2) mg/dL Phosphorus 5.80 H D (2.5-4.5) mg/dL Pituitary panel 02/02/18 02/03/18 02/03/18 Range/Units 20:48 04:43 07:45 Sodium 137 129 L D 128 L (137-145) mmol/L Potassium 3.4 L 6.5 H* D 6.5 H* (3.6-5.0) mmol/L Chloride 101.0 96.3 L 96.9 L (98-107) mmol/L Carbon Dioxide 24 22 22 (22-30) mmol/L BUN 19 17 18 (9-20) mg/dL Creatinine 0.4 L 0.4 L 0.4 L (0.8-1.5) mg/dL Glucose 180 H 604 H* 665 H* (75-100) mg/dL Calcium 7.8 L 8.4 8.7 (8.4-10.2) mg/dL Adrenal panel 02/02/18 02/03/18 02/03/18 Range/Units 20:48 04:43 07:45 Sodium 137 129 L D 128 L (137-145) mmol/L Potassium 3.4 L 6.5 H* D 6.5 H* (3.6-5.0) mmol/L Chloride 101.0 96.3 L 96.9 L (98-107) mmol/L Carbon Dioxide 24 22 22 (22-30) mmol/L BUN 19 17 18 (9-20) mg/dL Creatinine 0.4 L 0.4 L 0.4 L (0.8-1.5) mg/dL Glucose 180 H 604 H* 665 H* (75-100) mg/dL Calcium 7.8 L 8.4 8.7 (8.4-10.2) mg/dL
[2018-02-03 14:31] LABS: BUN/Creatinine Ratio 50; Blood Urea Nitrogen 20 mg/dL (9-20); Hemolysis Index 3
--- NOTE | 2018-02-03 16:43 | Progress Note ---
Assessment and Plan Assessment and plan: --Depression and anxiety; continue low dose Xanax Denies suicidal thoughts or ideation, pending psych evaluation -- 2 diabetes mellitus; uncontrolled blood sugars, partly secondary to steroids Accu-Chek sliding scale coverage, patient's A1c is 6.8, increase 7030 insulin to 18 units twice a day -- poorly differentiated signet ring colon cancer s/p surgery -- s/p Exploratory laparotomy, lysis of adhesions, small bowel resection, right hemicolectomy, partial omentectomy, creation of end ileostomy and mucus fistula, application of wound vac, Diet advanced by surgery, titrate and DC TPN , surgery following --Oncology following,PET scan as outpatient --SIRS with suspected early sepsis resolved --Severe protein calorie malnutrition; hypoalbuminemia, nutrition supplements, supportive care --Crohn's disease/stricture/ sbo s/p surgery, Imuran and steroid, --Hypertension: On antihypertensives and PRN medications --Tobacco/marijuana use: counseling done --DVT prophylaxis: Heparin --GI prophylaxis: iv protonix Continue physical therapy DC planning. Case management; possible home with home health when medically and surgically stable History Interval history: Patient seen and evaluated medical records reviewed Patient has multiple explained abnormal electrolyte values Probably drop from the PICC line and patient is getting TPN Repeat labs reviewed Patient was given Kayexalate for a possible hyperkalemia Has gross bowel movements Patient alert and awake Vital signs reviewed Hospitalist Physical - Constitutional Vitals: Temp Pulse Resp BP Pulse Ox 98.2 F 60 20 140/78 98 02/03/18 16:00 02/03/18 16:00 02/03/18 16:00 02/03/18 16:00 02/03/18 16:00 General appearance: Present: no acute distress, well-nourished - EENT Eyes: Present: PERRL, EOM intact - Neck Neck: Present: supple, normal ROM - Respiratory Respiratory effort: normal Respiratory: bilateral: diminished, negative: rales, rhonchi, wheezing - Extremities Extremities: no ischemia, pulses intact - Abdominal General gastrointestinal: soft, non-tender, non-distended, normal bowel sounds, other (colostomy in place/surgical wound clean) - Integumentary Integumentary: Present: clear, warm - Psychiatric Psychiatric: appropriate mood/affect, cooperative - Neurologic Neurologic: CNII-XII intact Results - Labs CBC & Chem 7: 02/02/18 20:48 02/03/18 14:10 Labs: Laboratory Last Values WBC 4.5 K/mm3 (4.5-11.0) 02/02/18 20:48 RBC 2.83 M/mm3 (3.65-5.03) L 02/02/18 20:48 Hgb 7.8 gm/dl (11.8-15.2) L 02/02/18 20:48 Hct 24.0 % (35.5-45.6) L 02/02/18 20:48 MCV 85 fl (84-94) 02/02/18 20:48 MCH 28 pg (28-32) 02/02/18 20:48 MCHC 33 % (32-34) 02/02/18 20:48 RDW 16.6 % (13.2-15.2) H 02/02/18 20:48 Plt Count 136 K/mm3 (140-440) L 02/02/18 20:48 Lymph % (Auto) 3.8 % (13.4-35.0) L 02/02/18 20:48 [place] % (Auto) 7.1 % (0.0-7.3) 02/02/18 20:48 Eos % (Auto) 0.0 % (0.0-4.3) 02/02/18 20:48 Baso % (Auto) 0.1 % (0.0-1.8) 02/02/18 20:48 Lymph # 0.2 K/mm3 (1.2-5.4) L 02/02/18 20:48 [place] # 0.3 K/mm3 (0.0-0.8) 02/02/18 20:48 Eos # 0.0 K/mm3 (0.0-0.4) 02/02/18 20:48 Baso # 0.0 K/mm3 (0.0-0.1) 02/02/18 20:48 Add Manual Diff Complete 02/02/18 06:00 Total Counted 100 02/02/18 06:00 Seg Neutrophils % 89.0 % (40.0-70.0) H 02/02/18 20:48 Seg Neuts % (Manual) 93.0 % (40.0-70.0) H 02/02/18 06:00 Band Neutrophils % 1.0 % 02/02/18 06:00 Lymphocytes % (Manual) 2.0 % (13.4-35.0) L 02/02/18 06:00 Reactive Lymphs % (Man) 0 % 02/02/18 06:00 Monocytes % (Manual) 4.0 % (0.0-7.3) 02/02/18 06:00 Eosinophils % (Manual) 0 % (0.0-4.3) 02/02/18 06:00 Basophils % (Manual) 0 % (0.0-1.8) 02/02/18 06:00 Metamyelocytes % 0 % 02/02/18 06:00 Myelocytes % 0 % 02/02/18 06:00 Promyelocytes % 0 % 02/02/18 06:00 Blast Cells % 0 % 02/02/18 06:00 Nucleated RBC % Not Reportable 02/02/18 06:00 Seg Neutrophils # 4.0 K/mm3 (1.8-7.7) 02/02/18 20:48 Seg Neutrophils # Man 4.1 K/mm3 (1.8-7.7) 02/02/18 06:00 Band Neutrophils # 0.0 K/mm3 02/02/18 06:00 Lymphocytes # (Manual) 0.1 K/mm3 (1.2-5.4) L 02/02/18 06:00 Abs React Lymphs (Man) 0.0 K/mm3 02/02/18 06:00 Monocytes # (Manual) 0.2 K/mm3 (0.0-0.8) 02/02/18 06:00 Eosinophils # (Manual) 0.0 K/mm3 (0.0-0.4) 02/02/18 06:00 Basophils # (Manual) 0.0 K/mm3 (0.0-0.1) 02/02/18 06:00 Metamyelocytes # 0.0 K/mm3 02/02/18 06:00 Myelocytes # 0.0 K/mm3 02/02/18 06:00 Promyelocytes # 0.0 K/mm3 02/02/18 06:00 Blast Cells # 0.0 K/mm3 02/02/18 06:00 WBC Morphology Not Reportable 02/02/18 06:00 Hypersegmented Neuts Not Reportable 02/02/18 06:00 Hyposegmented Neuts Not Reportable 02/02/18 06:00 Hypogranular Neuts Not Reportable 02/02/18 06:00 Smudge Cells Not Reportable 02/02/18 06:00 Toxic Granulation Not Reportable 02/02/18 06:00 Toxic Vacuolation Not Reportable 02/02/18 06:00 Dohle Bodies Not Reportable 02/02/18 06:00 Pelger-Huet Anomaly Not Reportable 02/02/18 06:00 Christina Rods Not Reportable 02/02/18 06:00 Platelet Estimate Consistent w auto 02/02/18 06:00 Clumped Platelets Not Reportable 02/02/18 06:00 Plt Clumps, EDTA Not Reportable 02/02/18 06:00 Large Platelets Not Reportable 02/02/18 06:00 Giant Platelets Not Reportable 02/02/18 06:00 Platelet Satelliting Not Reportable 02/02/18 06:00 Plt Morphology Comment Not Reportable 02/02/18 06:00 RBC Morphology Not Reportable 02/02/18 06:00 Dimorphic RBCs Not Reportable 02/02/18 06:00 Polychromasia Not Reportable 02/02/18 06:00 Hypochromasia Not Reportable 02/02/18 06:00 Poikilocytosis Not Reportable 02/02/18 06:00 Anisocytosis 1+ 02/02/18 06:00 Microcytosis Not Reportable 02/02/18 06:00 Macrocytosis Not Reportable 02/02/18 06:00 Spherocytes Not Reportable 02/02/18 06:00 Pappenheimer Bodies Not Reportable 02/02/18 06:00 Sickle Cells Not Reportable 02/02/18 06:00 Target Cells Not Reportable 02/02/18 06:00 Tear Drop Cells Not Reportable 02/02/18 06:00 Ovalocytes Not Reportable 02/02/18 06:00 Helmet Cells Not Reportable 02/02/18 06:00 [place] Bodies Not Reportable 02/02/18 06:00 [place] Rings Not Reportable 02/02/18 06:00 [place] Cells Not Reportable 02/02/18 06:00 Bite Cells Not Reportable 02/02/18 06:00 Crenated Cell Not Reportable 02/02/18 06:00 Elliptocytes Not Reportable 02/02/18 06:00 Acanthocytes (Spur) Not Reportable 02/02/18 06:00 Rouleaux Not Reportable 02/02/18 06:00 Hemoglobin C Crystals Not Reportable 02/02/18 06:00 Schistocytes Not Reportable 02/02/18 06:00 Malaria parasites Not Reportable 02/02/18 06:00 Krishna Bodies Not Reportable 02/02/18 06:00 Hem Pathologist Commnt No 02/02/18 06:00 Sodium 134 mmol/L (137-145) L 02/03/18 14:10 Potassium 3.8 mmol/L (3.6-5.0) D 02/03/18 14:10 Chloride 100.4 mmol/L (98-107) 02/03/18 14:10 Carbon Dioxide 22 mmol/L (22-30) 02/03/18 14:10 Anion Gap 15 mmol/L 02/03/18 14:10 BUN 20 mg/dL (9-20) 02/03/18 14:10 Creatinine 0.4 mg/dL (0.8-1.5) L 02/03/18 14:10 Estimated GFR > 60 ml/min 02/03/18 14:10 BUN/Creatinine Ratio 50 % 02/03/18 14:10 Glucose 297 mg/dL (75-100) H 02/03/18 14:10 POC Glucose 242 (70-105) H 02/03/18 16:03 Lactic Acid 1.60 mmol/L (0.7-2.0) 01/17/18 08:09 Calcium 8.0 mg/dL (8.4-10.2) L 02/03/18 14:10 Phosphorus 2.40 mg/dL (2.5-4.5) L D 02/03/18 14:10 Magnesium 1.80 mg/dL (1.7-2.3) 02/03/18 14:10 Total Bilirubin < 0.20 mg/dL (0.1-1.2) 02/02/18 06:00 AST 7 units/L (5-40) 02/02/18 06:00 ALT 7 units/L (7-56) 02/02/18 06:00 Alkaline Phosphatase 84 units/L (35-129) 02/02/18 06:00 Total Creatine Kinase 40 units/L (55-170) L 01/17/18 21:14 CK-MB (CK-2) 5.2 ng/mL (0.0-4.0) H 01/17/18 21:14 CK-MB (CK-2) Rel Index 13.0 (0-4) H 01/17/18 21:14 Troponin T < 0.010 ng/mL (0.00-0.029) 01/17/18 21:14 Total Protein 4.5 g/dL (6.3-8.2) L 02/02/18 06:00 Albumin 1.8 g/dL (3.9-5) L 02/02/18 06:00 Albumin/Globulin Ratio 0.7 % 02/02/18 06:00 Prealbumin 0.110 g/L (0.200-0.400) L 01/29/18 04:33 Triglycerides 47 mg/dL (2-149) 01/29/18 04:33 Cholesterol 47 mg/dL (50-199) L 01/29/18 04:33 LDL Cholesterol Direct 7 mg/dL (50-130) L 01/29/18 04:33 HDL Cholesterol 34 mg/dL (40-59) L 01/29/18 04:33 Cholesterol/HDL Ratio 1.38 % 01/29/18 04:33 Lipase 9 units/L (13-60) L 01/18/18 04:54 Urine Color Yellow (Yellow) 01/19/18 11:30 Urine Turbidity Clear (Clear) 01/19/18 11:30 Urine pH 5.0 (5.0-7.0) 01/19/18 11:30 Ur Specific [place] 1.016 (1.003-1.030) 01/19/18 11:30 Urine Protein <15 mg/dl mg/dL (Negative) 01/19/18 11:30 Urine Glucose (UA) Neg mg/dL (Negative) 01/19/18 11:30 Urine Ketones 20 mg/dL (Negative) 01/19/18 11:30 Urine Blood Sm (Negative) 01/19/18 11:30 Urine Nitrite Neg (Negative) 01/19/18 11:30 Urine Bilirubin Neg (Negative) 01/19/18 11:30 Urine Urobilinogen < 2.0 mg/dL (<2.0) 01/19/18 11:30 Ur Leukocyte Esterase Neg (Negative) 01/19/18 11:30 Urine WBC (Auto) 2.0 /HPF (0.0-6.0) 01/19/18 11:30 Urine RBC (Auto) < 1.0 /HPF (0.0-6.0) 01/19/18 11:30 U Epithel Cells (Auto) < 1.0 /HPF (0-13.0) 01/18/18 00:02 Hyaline Casts 12 /LPF 01/18/18 00:02 Urine Mucus Few /HPF 01/19/18 11:30 Blood Type O POSITIVE 01/27/18 05:30 Antibody Screen Negative 01/27/18 05:30 Crossmatch See Detail 01/27/18 05:30
[2018-02-03] MEDS: LEVAQUIN 750MG/150ML 750 MG/150 ML BAG IV SCH (17:35)
[2018-02-03] MEDS ORDERED: TPN ADULT 2,016 ML IV SCH (20:00)
[2018-02-04] MEDS: HumaLOG SUB-Q SCH ×4 (00:20→23:05)
[2018-02-04] MEDS: XANAX PO PRN (00:20)
[2018-02-04] MEDS: DILAUDID IV PRN ×5 (02:05→22:32)
[2018-02-04 05:40] LABS: BUN/Creatinine Ratio 60; Blood Urea Nitrogen 18 mg/dL (9-20); Calcium 7.8 mg/dL (8.4-10.2); Hemolysis Index 0
[2018-02-04] MEDS: HEPARIN SUB-Q SCH ×3 (06:14→23:07)
[2018-02-04] MEDS: FLAGYL 500 MG/100 ML 500 MG/100 ML BAG IV SCH (06:14)
--- NOTE | 2018-02-04 09:42 | Hem/Onc Progress Note ---
Assessment and Plan At this time continue postop care. Once he is discharged, I will set him up for a PET scan and also a second opinion from every prior to deciding about adjuvant chemotherapy treatment. I have discussed that with the patient and Dr torres Subjective Date of service: 02/04/18 Interval history: Patient states he feels better. Very alert. In no distress. Pain present still he states Objective - Constitutional Vitals: Last Vital Signs Temp 98.4 F 02/04/18 08:00 Pulse 58 L 02/04/18 08:00 Resp 20 02/04/18 08:00 BP 151/77 02/04/18 08:00 Pulse Ox 100 02/04/18 08:00 General appearance: mild distress Performance status: 3-limited selfcare - Neck Neck: supple - Respiratory Respiratory effort: Positive: normal - Cardiovascular Rhythm: regular Extremities: No edema - Gastrointestinal General gastrointestinal: Present: soft (ileostomy present) - Labs Lab Results: Laboratory Results - last 24 hr 02/03/18 02/03/18 02/03/18 11:52 14:10 14:10 Sodium 134 L Potassium 3.8 D Chloride 100.4 Carbon Dioxide 22 Anion Gap 15 BUN 20 Creatinine 0.4 L Estimated GFR > 60 BUN/Creatinine Ratio 50 Glucose 297 H POC Glucose 275 H Calcium 8.0 L Phosphorus 2.40 L D Magnesium 1.80 02/03/18 02/03/18 02/04/18 16:03 23:31 05:00 Sodium 136 L Potassium 4.0 Chloride 100.2 Carbon Dioxide 22 Anion Gap 18 BUN 18 Creatinine 0.3 L Estimated GFR > 60 BUN/Creatinine Ratio 60 Glucose 215 H POC Glucose 242 H 252 H Calcium 7.8 L Phosphorus 2.80 Magnesium 1.70 02/04/18 06:01 Sodium Potassium Chloride Carbon Dioxide Anion Gap BUN Creatinine Estimated GFR BUN/Creatinine Ratio Glucose POC Glucose 257 H Calcium Phosphorus Magnesium
[2018-02-04] MEDS: PROTONIX PO SCH (11:52)
--- NOTE | 2018-02-04 12:23 | Progress Note ---
Assessment and Plan 47 yo M s/p Exploratory laparotomy, lysis of adhesions, small bowel resection, right hemicolectomy, partial omentectomy, creation of end ileostomy and mucus fistula, application of wound vac, POD 7 1. 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 Crohn's disease 3. malnutiriton 4. sepsis 5. high grade small bowel obstruction s/p Exploratory laparotomy, lysis of adhesions, ileocecectomy with primary anastomosis on 01/17/18 Plan: 1. consistent carb diet with protein supplements 2. dc IV abx 3. PPI 4. DVT ppx 5. dc TPN today 7. reviewed final path with Dr. Dai - [facility] as outpatient 8. continue wound vac and ostomy care per wound care nurse 9. PRN pain control -PO percocet 10. OOB, PT 11. strict glucose control, ISS 12. c/w steroid taper 13. psych consult pending 14. dc planning per 1' with home health care and follow up in wound care clinic once wound vac is approved by insurance. D/W Case management. Subjective Date of service: 02/04/18 Narrative: Pt seen and examined. Feels well. Pain is controlled. No n/v. Tolerating regular diet. No f/c. Ileostomy output has slowed down. Objective Vital Signs - 12hr 02/04/18 02/04/18 02/04/18 02:05 02:35 04:00 Temperature 98.2 F Pulse Rate 60 Respiratory 17 17 18 Rate Blood Pressure 139/81 [Left] O2 Sat by Pulse 98 Oximetry 02/04/18 02/04/18 02/04/18 06:13 06:43 08:00 Temperature 98.4 F Pulse Rate 58 L Respiratory 17 17 20 Rate Blood Pressure 151/77 [Left] O2 Sat by Pulse 100 Oximetry - General physical appearance Narrative Exam: Gen: AAOx3. NAD CV: S1, S2+ resp: No audible wheezes Abd: soft, ND, mild TTP of ecchymosis of LLQ (heparin SQ admin site), ND. wound vac in midline with good seal. Ostomy appliances with good seal. Liquid and soft stool from ileostomy. Mucosa of ileostomy and colostomy pink. Ext: no c/c/e - Labs 02/02/18 20:48 02/04/18 05:00 Diabetes panel 02/03/18 02/04/18 Range/Units 14:10 05:00 Sodium 134 L 136 L (137-145) mmol/L Potassium 3.8 D 4.0 (3.6-5.0) mmol/L Chloride 100.4 100.2 (98-107) mmol/L Carbon Dioxide 22 22 (22-30) mmol/L BUN 20 18 (9-20) mg/dL Creatinine 0.4 L 0.3 L (0.8-1.5) mg/dL Glucose 297 H 215 H (75-100) mg/dL Calcium 8.0 L 7.8 L (8.4-10.2) mg/dL Calcium panel 02/03/18 02/03/18 02/04/18 Range/Units 14:10 14:10 05:00 Calcium 8.0 L 7.8 L (8.4-10.2) mg/dL Phosphorus 2.40 L D 2.80 (2.5-4.5) mg/dL Pituitary panel 02/03/18 02/04/18 Range/Units 14:10 05:00 Sodium 134 L 136 L (137-145) mmol/L Potassium 3.8 D 4.0 (3.6-5.0) mmol/L Chloride 100.4 100.2 (98-107) mmol/L Carbon Dioxide 22 22 (22-30) mmol/L BUN 20 18 (9-20) mg/dL Creatinine 0.4 L 0.3 L (0.8-1.5) mg/dL Glucose 297 H 215 H (75-100) mg/dL Calcium 8.0 L 7.8 L (8.4-10.2) mg/dL Adrenal panel 02/03/18 02/04/18 Range/Units 14:10 05:00 Sodium 134 L 136 L (137-145) mmol/L Potassium 3.8 D 4.0 (3.6-5.0) mmol/L Chloride 100.4 100.2 (98-107) mmol/L Carbon Dioxide 22 22 (22-30) mmol/L BUN 20 18 (9-20) mg/dL Creatinine 0.4 L 0.3 L (0.8-1.5) mg/dL Glucose 297 H 215 H (75-100) mg/dL Calcium 8.0 L 7.8 L (8.4-10.2) mg/dL
[2018-02-04] MEDS: PERCOCET 5/325 PO PRN ×2 (14:00→20:11)
--- NOTE | 2018-02-04 18:13 | Progress Note ---
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 -- s/p Exploratory laparotomy, lysis of adhesions, small bowel resection, right hemicolectomy, partial omentectomy, creation of end ileostomy and mucus fistula, application of wound vac, Diet advanced by surgery, titrate and DC TPN , surgery following --Oncology following,PET scan as outpatient --Depression and anxiety; continue low dose Xanax Denies suicidal thoughts or ideation, pending psych evaluation --Severe protein calorie malnutrition; hypoalbuminemia, nutrition supplements, supportive care --Crohn's disease/stricture/ sbo s/p surgery, Imuran and steroid, --Hypertension: On antihypertensives and PRN medications --Tobacco/marijuana use: counseling done --DVT prophylaxis: Heparin --GI prophylaxis: iv protonix Continue physical therapy DC planning. Case management; possible home with home health In 1-2 days when medically and surgically stable History Interval history: Patient seen and examined medical records reviewed Patient feels better tolerating oral diet We will taper and DC TPN No new complaints Vital signs reviewed Hospitalist Physical - Constitutional Vitals: Temp Pulse Resp BP Pulse Ox 97.9 F 63 18 134/80 98 02/04/18 17:18 02/04/18 17:18 02/04/18 17:18 02/04/18 17:18 02/04/18 17:18 General appearance: Present: no acute distress, well-nourished - EENT Eyes: Present: PERRL, EOM intact - Neck Neck: Present: supple, normal ROM - Respiratory Respiratory effort: normal Respiratory: bilateral: diminished, negative: rales, rhonchi, wheezing - Cardiovascular Rhythm: regular Heart Sounds: Present: S1 & S2 - Extremities Extremities: no ischemia, No edema - Abdominal General gastrointestinal: soft, non-tender, non-distended, normal bowel sounds, other (ostomies/surgical wound intact) - Integumentary Integumentary: Present: clear, warm - Psychiatric Psychiatric: appropriate mood/affect, cooperative - Neurologic Neurologic: CNII-XII intact, moves all extremities Results - Labs CBC & Chem 7: 02/02/18 20:48 02/04/18 05:00 Labs: Laboratory Last Values WBC 4.5 K/mm3 (4.5-11.0) 02/02/18 20:48 RBC 2.83 M/mm3 (3.65-5.03) L 02/02/18 20:48 Hgb 7.8 gm/dl (11.8-15.2) L 02/02/18 20:48 Hct 24.0 % (35.5-45.6) L 02/02/18 20:48 MCV 85 fl (84-94) 02/02/18 20:48 MCH 28 pg (28-32) 02/02/18 20:48 MCHC 33 % (32-34) 02/02/18 20:48 RDW 16.6 % (13.2-15.2) H 02/02/18 20:48 Plt Count 136 K/mm3 (140-440) L 02/02/18 20:48 Lymph % (Auto) 3.8 % (13.4-35.0) L 02/02/18 20:48 [place] % (Auto) 7.1 % (0.0-7.3) 02/02/18 20:48 Eos % (Auto) 0.0 % (0.0-4.3) 02/02/18 20:48 Baso % (Auto) 0.1 % (0.0-1.8) 02/02/18 20:48 Lymph # 0.2 K/mm3 (1.2-5.4) L 02/02/18 20:48 [place] # 0.3 K/mm3 (0.0-0.8) 02/02/18 20:48 Eos # 0.0 K/mm3 (0.0-0.4) 02/02/18 20:48 Baso # 0.0 K/mm3 (0.0-0.1) 02/02/18 20:48 Add Manual Diff Complete 02/02/18 06:00 Total Counted 100 02/02/18 06:00 Seg Neutrophils % 89.0 % (40.0-70.0) H 02/02/18 20:48 Seg Neuts % (Manual) 93.0 % (40.0-70.0) H 02/02/18 06:00 Band Neutrophils % 1.0 % 03/31/18 06:00 Lymphocytes % (Manual) 2.0 % (13.4-35.0) L 02/02/18 06:00 Reactive Lymphs % (Man) 0 % 02/02/18 06:00 Monocytes % (Manual) 4.0 % (0.0-7.3) 02/02/18 06:00 Eosinophils % (Manual) 0 % (0.0-4.3) 02/02/18 06:00 Basophils % (Manual) 0 % (0.0-1.8) 02/02/18 06:00 Metamyelocytes % 0 % 02/02/18 06:00 Myelocytes % 0 % 02/02/18 06:00 Promyelocytes % 0 % 02/02/18 06:00 Blast Cells % 0 % 02/02/18 06:00 Nucleated RBC % Not Reportable 02/02/18 06:00 Seg Neutrophils # 4.0 K/mm3 (1.8-7.7) 02/02/18 20:48 Seg Neutrophils # Man 4.1 K/mm3 (1.8-7.7) 02/02/18 06:00 Band Neutrophils # 0.0 K/mm3 02/02/18 06:00 Lymphocytes # (Manual) 0.1 K/mm3 (1.2-5.4) L 02/02/18 06:00 Abs React Lymphs (Man) 0.0 K/mm3 02/02/18 06:00 Monocytes # (Manual) 0.2 K/mm3 (0.0-0.8) 02/02/18 06:00 Eosinophils # (Manual) 0.0 K/mm3 (0.0-0.4) 02/02/18 06:00 Basophils # (Manual) 0.0 K/mm3 (0.0-0.1) 02/02/18 06:00 Metamyelocytes # 0.0 K/mm3 02/02/18 06:00 Myelocytes # 0.0 K/mm3 02/02/18 06:00 Promyelocytes # 0.0 K/mm3 02/02/18 06:00 Blast Cells # 0.0 K/mm3 02/02/18 06:00 WBC Morphology Not Reportable 02/02/18 06:00 Hypersegmented Neuts Not Reportable 02/02/18 06:00 Hyposegmented Neuts Not Reportable 02/02/18 06:00 Hypogranular Neuts Not Reportable 02/02/18 06:00 Smudge Cells Not Reportable 02/02/18 06:00 Toxic Granulation Not Reportable 02/02/18 06:00 Toxic Vacuolation Not Reportable 02/02/18 06:00 Dohle Bodies Not Reportable 02/02/18 06:00 Pelger-Huet Anomaly Not Reportable 02/02/18 06:00 Christina Rods Not Reportable 02/02/18 06:00 Platelet Estimate Consistent w auto 02/02/18 06:00 Clumped Platelets Not Reportable 02/02/18 06:00 Plt Clumps, EDTA Not Reportable 02/02/18 06:00 Large Platelets Not Reportable 02/02/18 06:00 Giant Platelets Not Reportable 02/02/18 06:00 Platelet Satelliting Not Reportable 02/02/18 06:00 Plt Morphology Comment Not Reportable 02/02/18 06:00 RBC Morphology Not Reportable 02/02/18 06:00 Dimorphic RBCs Not Reportable 02/02/18 06:00 Polychromasia Not Reportable 02/02/18 06:00 Hypochromasia Not Reportable 02/02/18 06:00 Poikilocytosis Not Reportable 02/02/18 06:00 Anisocytosis 1+ 02/02/18 06:00 Microcytosis Not Reportable 02/02/18 06:00 Macrocytosis Not Reportable 02/02/18 06:00 Spherocytes Not Reportable 02/02/18 06:00 Pappenheimer Bodies Not Reportable 02/02/18 06:00 Sickle Cells Not Reportable 02/02/18 06:00 Target Cells Not Reportable 02/02/18 06:00 Tear Drop Cells Not Reportable 02/02/18 06:00 Ovalocytes Not Reportable 02/02/18 06:00 Helmet Cells Not Reportable 02/02/18 06:00 [place] Bodies Not Reportable 02/02/18 06:00 [place] Rings Not Reportable 02/02/18 06:00 [place] Cells Not Reportable 02/02/18 06:00 Bite Cells Not Reportable 02/02/18 06:00 Crenated Cell Not Reportable 02/02/18 06:00 Elliptocytes Not Reportable 02/02/18 06:00 Acanthocytes (Spur) Not Reportable 02/02/18 06:00 Rouleaux Not Reportable 02/02/18 06:00 Hemoglobin C Crystals Not Reportable 02/02/18 06:00 Schistocytes Not Reportable 02/02/18 06:00 Malaria parasites Not Reportable 02/02/18 06:00 Krishna Bodies Not Reportable 02/02/18 06:00 Hem Pathologist Commnt No 02/02/18 06:00 Sodium 136 mmol/L (137-145) L 02/04/18 05:00 Potassium 4.0 mmol/L (3.6-5.0) 02/04/18 05:00 Chloride 100.2 mmol/L (98-107) 02/04/18 05:00 Carbon Dioxide 22 mmol/L (22-30) 02/04/18 05:00 Anion Gap 18 mmol/L 02/04/18 05:00 BUN 18 mg/dL (9-20) 02/04/18 05:00 Creatinine 0.3 mg/dL (0.8-1.5) L 02/04/18 05:00 Estimated GFR > 60 ml/min 02/04/18 05:00 BUN/Creatinine Ratio 60 % 02/04/18 05:00 Glucose 215 mg/dL (75-100) H 02/04/18 05:00 POC Glucose 201 (70-105) H 02/04/18 17:11 Lactic Acid 1.60 mmol/L (0.7-2.0) 01/17/18 08:09 Calcium 7.8 mg/dL (8.4-10.2) L 02/04/18 05:00 Phosphorus 2.80 mg/dL (2.5-4.5) 02/04/18 05:00 Magnesium 1.70 mg/dL (1.7-2.3) 02/04/18 05:00 Total Bilirubin < 0.20 mg/dL (0.1-1.2) 02/02/18 06:00 AST 7 units/L (5-40) 02/02/18 06:00 ALT 7 units/L (7-56) 02/02/18 06:00 Alkaline Phosphatase 84 units/L (35-129) 02/02/18 06:00 Total Creatine Kinase 40 units/L (55-170) L 01/17/18 21:14 CK-MB (CK-2) 5.2 ng/mL (0.0-4.0) H 01/17/18 21:14 CK-MB (CK-2) Rel Index 13.0 (0-4) H 01/17/18 21:14 Troponin T < 0.010 ng/mL (0.00-0.029) 01/17/18 21:14 Total Protein 4.5 g/dL (6.3-8.2) L 02/02/18 06:00 Albumin 1.8 g/dL (3.9-5) L 02/02/18 06:00 Albumin/Globulin Ratio 0.7 % 02/02/18 06:00 Prealbumin 0.110 g/L (0.200-0.400) L 01/29/18 04:33 Triglycerides 47 mg/dL (2-149) 01/29/18 04:33 Cholesterol 47 mg/dL (50-199) L 01/29/18 04:33 LDL Cholesterol Direct 7 mg/dL (50-130) L 01/29/18 04:33 HDL Cholesterol 34 mg/dL (40-59) L 01/29/18 04:33 Cholesterol/HDL Ratio 1.38 % 01/29/18 04:33 Lipase 9 units/L (13-60) L 01/18/18 04:54 Urine Color Yellow (Yellow) 01/19/18 11:30 Urine Turbidity Clear (Clear) 01/19/18 11:30 Urine pH 5.0 (5.0-7.0) 01/19/18 11:30 Ur Specific [place] 1.016 (1.003-1.030) 01/19/18 11:30 Urine Protein <15 mg/dl mg/dL (Negative) 01/19/18 11:30 Urine Glucose (UA) Neg mg/dL (Negative) 01/19/18 11:30 Urine Ketones 20 mg/dL (Negative) 01/19/18 11:30 Urine Blood Sm (Negative) 01/19/18 11:30 Urine Nitrite Neg (Negative) 01/19/18 11:30 Urine Bilirubin Neg (Negative) 01/19/18 11:30 Urine Urobilinogen < 2.0 mg/dL (<2.0) 01/19/18 11:30 Ur Leukocyte Esterase Neg (Negative) 01/19/18 11:30 Urine WBC (Auto) 2.0 /HPF (0.0-6.0) 01/19/18 11:30 Urine RBC (Auto) < 1.0 /HPF (0.0-6.0) 01/19/18 11:30 U Epithel Cells (Auto) < 1.0 /HPF (0-13.0) 01/18/18 00:02 Hyaline Casts 12 /LPF 01/18/18 00:02 Urine Mucus Few /HPF 01/19/18 11:30 Blood Type O POSITIVE 01/27/18 05:30 Antibody Screen Negative 01/27/18 05:30 Crossmatch See Detail 01/27/18 05:30
[2018-02-05] MEDS: PERCOCET 5/325 PO PRN ×4 (02:11→23:18)
[2018-02-05] MEDS: DILAUDID IV PRN ×4 (03:39→20:44)
[2018-02-05] MEDS: HEPARIN SUB-Q SCH ×3 (06:23→22:03)
[2018-02-05] MEDS: HumaLOG SUB-Q SCH ×4 (08:20→23:19)
[2018-02-05] MEDS: XANAX PO PRN (09:49)
--- NOTE | 2018-02-05 11:39 | Progress Note ---
Assessment and Plan Assessment and plan: -- 2 diabetes mellitus; well controlled on insulin, patient's A1c is 6.8, Patient may switch to metformin upon discharge. 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 -- s/p Exploratory laparotomy, lysis of adhesions, small bowel resection, right hemicolectomy, partial omentectomy, creation of end ileostomy and mucus fistula, application of wound vac, Diet advanced by surgery, titrate and DC TPN , surgery following --Oncology following,PET scan as outpatient --Depression and anxiety; continue low dose Xanax Denies suicidal thoughts or ideation, advice to see behavioral health upon discharge --Severe protein calorie malnutrition; nutrition supplements, --Crohn's disease/stricture/ sbo s/p surgery, Imuran and steroid, --Hypertension: On antihypertensives and PRN medications --Tobacco/marijuana use: counseling done --DVT prophylaxis: Heparin --GI prophylaxis: iv protonix Continue physical therapy Patient is medically stable for discharge Advised to follow-up with primary care physician for his medical needs Do not need insulin on discharge, can resume home metformin History Interval history: Sincerely and examined medical records reviewed Patient feels like a bit, complaints of abdominal pain after change of dressing Blood sugars are well-controlled Tolerated oral nutrition Vital signs reviewed Hospitalist Physical - Constitutional Vitals: Temp Pulse Resp BP Pulse Ox 98.1 F 58 L 20 118/78 99 02/05/18 08:00 02/05/18 04:00 02/05/18 08:00 02/05/18 08:00 02/05/18 04:00 General appearance: Present: no acute distress, well-nourished - EENT Eyes: Present: PERRL, EOM intact - Neck Neck: Present: supple, normal ROM - Respiratory Respiratory effort: normal Respiratory: bilateral: diminished, negative: rales, rhonchi, wheezing - Cardiovascular Rhythm: regular Heart Sounds: Present: S1 & S2 - Extremities Extremities: no ischemia, No edema - Abdominal General gastrointestinal: soft, non-tender, normal bowel sounds, other ( colostomy intact, surgical wound clean) - Integumentary Integumentary: Present: clear, warm - Psychiatric Psychiatric: appropriate mood/affect, cooperative - Neurologic Neurologic: CNII-XII intact, moves all extremities Results - Labs CBC & Chem 7: 02/02/18 20:48 02/04/18 05:00 Labs: Laboratory Last Values WBC 4.5 K/mm3 (4.5-11.0) 02/02/18 20:48 RBC 2.83 M/mm3 (3.65-5.03) L 02/02/18 20:48 Hgb 7.8 gm/dl (11.8-15.2) L 02/02/18 20:48 Hct 24.0 % (35.5-45.6) L 02/02/18 20:48 MCV 85 fl (84-94) 02/02/18 20:48 MCH 28 pg (28-32) 02/02/18 20:48 MCHC 33 % (32-34) 02/02/18 20:48 RDW 16.6 % (13.2-15.2) H 02/02/18 20:48 Plt Count 136 K/mm3 (140-440) L 02/02/18 20:48 Lymph % (Auto) 3.8 % (13.4-35.0) L 02/02/18 20:48 [place] % (Auto) 7.1 % (0.0-7.3) 02/02/18 20:48 Eos % (Auto) 0.0 % (0.0-4.3) 02/02/18 20:48 Baso % (Auto) 0.1 % (0.0-1.8) 02/02/18 20:48 Lymph # 0.2 K/mm3 (1.2-5.4) L 02/02/18 20:48 [place] # 0.3 K/mm3 (0.0-0.8) 02/02/18 20:48 Eos # 0.0 K/mm3 (0.0-0.4) 02/02/18 20:48 Baso # 0.0 K/mm3 (0.0-0.1) 02/02/18 20:48 Add Manual Diff Complete 02/02/18 06:00 Total Counted 100 02/02/18 06:00 Seg Neutrophils % 89.0 % (40.0-70.0) H 02/02/18 20:48 Seg Neuts % (Manual) 93.0 % (40.0-70.0) H 02/02/18 06:00 Band Neutrophils % 1.0 % 02/02/18 06:00 Lymphocytes % (Manual) 2.0 % (13.4-35.0) L 02/02/18 06:00 Reactive Lymphs % (Man) 0 % 02/02/18 06:00 Monocytes % (Manual) 4.0 % (0.0-7.3) 02/02/18 06:00 Eosinophils % (Manual) 0 % (0.0-4.3) 02/02/18 06:00 Basophils % (Manual) 0 % (0.0-1.8) 02/02/18 06:00 Metamyelocytes % 0 % 02/02/18 06:00 Myelocytes % 0 % 02/02/18 06:00 Promyelocytes % 0 % 02/02/18 06:00 Blast Cells % 0 % 02/02/18 06:00 Nucleated RBC % Not Reportable 02/02/18 06:00 Seg Neutrophils # 4.0 K/mm3 (1.8-7.7) 02/02/18 20:48 Seg Neutrophils # Man 4.1 K/mm3 (1.8-7.7) 02/02/18 06:00 Band Neutrophils # 0.0 K/mm3 02/02/18 06:00 Lymphocytes # (Manual) 0.1 K/mm3 (1.2-5.4) L 02/02/18 06:00 Abs React Lymphs (Man) 0.0 K/mm3 02/02/18 06:00 Monocytes # (Manual) 0.2 K/mm3 (0.0-0.8) 02/02/18 06:00 Eosinophils # (Manual) 0.0 K/mm3 (0.0-0.4) 02/02/18 06:00 Basophils # (Manual) 0.0 K/mm3 (0.0-0.1) 02/02/18 06:00 Metamyelocytes # 0.0 K/mm3 02/02/18 06:00 Myelocytes # 0.0 K/mm3 02/02/18 06:00 Promyelocytes # 0.0 K/mm3 02/02/18 06:00 Blast Cells # 0.0 K/mm3 02/02/18 06:00 WBC Morphology Not Reportable 02/02/18 06:00 Hypersegmented Neuts Not Reportable 02/02/18 06:00 Hyposegmented Neuts Not Reportable 02/02/18 06:00 Hypogranular Neuts Not Reportable 02/02/18 06:00 Smudge Cells Not Reportable 02/02/18 06:00 Toxic Granulation Not Reportable 02/02/18 06:00 Toxic Vacuolation Not Reportable 02/02/18 06:00 Dohle Bodies Not Reportable 02/02/18 06:00 Pelger-Huet Anomaly Not Reportable 02/02/18 06:00 Christina Rods Not Reportable 02/02/18 06:00 Platelet Estimate Consistent w auto 02/02/18 06:00 Clumped Platelets Not Reportable 02/02/18 06:00 Plt Clumps, EDTA Not Reportable 02/02/18 06:00 Large Platelets Not Reportable 02/02/18 06:00 Giant Platelets Not Reportable 02/02/18 06:00 Platelet Satelliting Not Reportable 02/02/18 06:00 Plt Morphology Comment Not Reportable 02/02/18 06:00 RBC Morphology Not Reportable 02/02/18 06:00 Dimorphic RBCs Not Reportable 02/02/18 06:00 Polychromasia Not Reportable 02/02/18 06:00 Hypochromasia Not Reportable 02/02/18 06:00 Poikilocytosis Not Reportable 02/02/18 06:00 Anisocytosis 1+ 02/02/18 06:00 Microcytosis Not Reportable 02/02/18 06:00 Macrocytosis Not Reportable 02/02/18 06:00 Spherocytes Not Reportable 02/02/18 06:00 Pappenheimer Bodies Not Reportable 02/02/18 06:00 Sickle Cells Not Reportable 02/02/18 06:00 Target Cells Not Reportable 02/02/18 06:00 Tear Drop Cells Not Reportable 02/02/18 06:00 Ovalocytes Not Reportable 02/02/18 06:00 Helmet Cells Not Reportable 02/02/18 06:00 Cleary-[place] Bodies Not Reportable 02/02/18 06:00 [place] Rings Not Reportable 02/02/18 06:00 [place] Cells Not Reportable 02/02/18 06:00 Bite Cells Not Reportable 02/02/18 06:00 Crenated Cell Not Reportable 02/02/18 06:00 Elliptocytes Not Reportable 02/02/18 06:00 Acanthocytes (Spur) Not Reportable 02/02/18 06:00 Rouleaux Not Reportable 02/02/18 06:00 Hemoglobin C Crystals Not Reportable 02/02/18 06:00 Schistocytes Not Reportable 02/02/18 06:00 Malaria parasites Not Reportable 02/02/18 06:00 Krishna Bodies Not Reportable 02/02/18 06:00 Hem Pathologist Commnt No 02/02/18 06:00 Sodium 136 mmol/L (137-145) L 02/04/18 05:00 Potassium 4.0 mmol/L (3.6-5.0) 02/04/18 05:00 Chloride 100.2 mmol/L (98-107) 02/04/18 05:00 Carbon Dioxide 22 mmol/L (22-30) 02/04/18 05:00 Anion Gap 18 mmol/L 02/04/18 05:00 BUN 18 mg/dL (9-20) 02/04/18 05:00 Creatinine 0.3 mg/dL (0.8-1.5) L 02/04/18 05:00 Estimated GFR > 60 ml/min 02/04/18 05:00 BUN/Creatinine Ratio 60 % 02/04/18 05:00 Glucose 215 mg/dL (75-100) H 02/04/18 05:00 POC Glucose 114 (70-105) H 02/05/18 08:01 Lactic Acid 1.60 mmol/L (0.7-2.0) 01/17/18 08:09 Calcium 7.8 mg/dL (8.4-10.2) L 02/04/18 05:00 Phosphorus 2.80 mg/dL (2.5-4.5) 02/04/18 05:00 Magnesium 1.70 mg/dL (1.7-2.3) 02/04/18 05:00 Total Bilirubin < 0.20 mg/dL (0.1-1.2) 02/02/18 06:00 AST 7 units/L (5-40) 02/02/18 06:00 ALT 7 units/L (7-56) 02/02/18 06:00 Alkaline Phosphatase 84 units/L (35-129) 02/02/18 06:00 Total Creatine Kinase 40 units/L (55-170) L 01/17/18 21:14 CK-MB (CK-2) 5.2 ng/mL (0.0-4.0) H 01/17/18 21:14 CK-MB (CK-2) Rel Index 13.0 (0-4) H 01/17/18 21:14 Troponin T < 0.010 ng/mL (0.00-0.029) 01/17/18 21:14 Total Protein 4.5 g/dL (6.3-8.2) L 02/02/18 06:00 Albumin 1.8 g/dL (3.9-5) L 02/02/18 06:00 Albumin/Globulin Ratio 0.7 % 02/02/18 06:00 Prealbumin 0.110 g/L (0.200-0.400) L 01/29/18 04:33 Triglycerides 47 mg/dL (2-149) 01/29/18 04:33 Cholesterol 47 mg/dL (50-199) L 01/29/18 04:33 LDL Cholesterol Direct 7 mg/dL (50-130) L 01/29/18 04:33 HDL Cholesterol 34 mg/dL (40-59) L 01/29/18 04:33 Cholesterol/HDL Ratio 1.38 % 01/29/18 04:33 Lipase 9 units/L (13-60) L 01/18/18 04:54 Urine Color Yellow (Yellow) 01/19/18 11:30 Urine Turbidity Clear (Clear) 01/19/18 11:30 Urine pH 5.0 (5.0-7.0) 01/19/18 11:30 Ur Specific [place] 1.016 (1.003-1.030) 01/19/18 11:30 Urine Protein <15 mg/dl mg/dL (Negative) 01/19/18 11:30 Urine Glucose (UA) Neg mg/dL (Negative) 01/19/18 11:30 Urine Ketones 20 mg/dL (Negative) 01/19/18 11:30 Urine Blood Sm (Negative) 01/19/18 11:30 Urine Nitrite Neg (Negative) 01/19/18 11:30 Urine Bilirubin Neg (Negative) 01/19/18 11:30 Urine Urobilinogen < 2.0 mg/dL (<2.0) 01/19/18 11:30 Ur Leukocyte Esterase Neg (Negative) 01/19/18 11:30 Urine WBC (Auto) 2.0 /HPF (0.0-6.0) 01/19/18 11:30 Urine RBC (Auto) < 1.0 /HPF (0.0-6.0) 01/19/18 11:30 U Epithel Cells (Auto) < 1.0 /HPF (0-13.0) 01/18/18 00:02 Hyaline Casts 12 /LPF 01/18/18 00:02 Urine Mucus Few /HPF 01/19/18 11:30 Blood Type O POSITIVE 01/27/18 05:30 Antibody Screen Negative 01/27/18 05:30 Crossmatch See Detail 01/27/18 05:30
[2018-02-05] MEDS: PROTONIX PO SCH (11:45)
[2018-02-05] MEDS: DELTASONE PO SCH (11:45)
--- NOTE | 2018-02-05 11:55 | Progress Note ---
Assessment and Plan 47 yo M s/p Exploratory laparotomy, lysis of adhesions, small bowel resection, right hemicolectomy, partial omentectomy, creation of end ileostomy and mucus fistula, application of wound vac, POD 8 1. 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 Crohn's disease 3. malnutiriton 4. sepsis 5. high grade small bowel obstruction s/p Exploratory laparotomy, lysis of adhesions, ileocecectomy with primary anastomosis on 01/17/18 Plan: 1. consistent carb diet with protein supplements 2. PPI 3. DVT ppx 4. reviewed final path with Dr. Dai - PET as outpatient 5. continue wound vac and ostomy care per wound care nurse 6. PRN pain control -PO percocet 7. OOB, PT 8. strict glucose control, ISS 9. c/w steroid taper 10. dc planning per 1' with home health care and follow up in wound care clinic once wound vac is set up via vahid application. Stable for dc from surgery standpoint. Will follow up in wound care clinic as per wound nurse and surgery clinic in 2 weeks. Subjective Date of service: 02/05/18 Narrative: Pt seen and examined. c/o right sided abdominal pain and midline pain s/p vac change and ileostomy appliance change. Tolerating diet, no n/v, f/c. Postop pain controlled with percocet. Asking when he can go home. Objective Vital Signs - 12hr 02/05/18 02/05/18 02/05/18 00:00 04:00 08:00 Temperature 98.3 F 98.0 F 98.1 F Pulse Rate 60 58 L Respiratory 18 18 20 Rate Blood Pressure 142/82 140/82 118/78 [Left] O2 Sat by Pulse 98 99 Oximetry - General physical appearance Narrative Exam: Gen: AAOx3. NAD CV: S1, s2+ Resp: No audible wheezes Abd: soft, ND, mild midline TTP, no r/r/g. vac in place with good seal. Ileostomy with soft formed and liquid stool in bag, mucosa pink. colostomy with no stool in bag, mucosa pink Ext: no c/c/e - Labs 02/02/18 20:48 02/04/18 05:00
[2018-02-05] MEDS ORDERED: DILAUDID IV ONE (12:43)
[2018-02-05] MEDS ORDERED: D50W (25GM) Syringe IV ONE (13:04)
[2018-02-05] MEDS ORDERED: D50W (25GM) Syringe IV PRN (13:05)
[2018-02-06 04:24] LABS: Alanine Aminotransferase 9 units/L (7-56); Albumin 2.1 g/dL (3.9-5); BUN/Creatinine Ratio 30; Blood Urea Nitrogen 12 mg/dL (9-20); Calcium 7.7 mg/dL (8.4-10.2); Hemolysis Index 1
[2018-02-06] MEDS: HEPARIN SUB-Q SCH ×2 (05:59→14:25)
[2018-02-06] MEDS: PERCOCET 5/325 PO PRN ×2 (05:59→11:39)
[2018-02-06] MEDS: HumaLOG SUB-Q SCH ×2 (07:30→11:53)
[2018-02-06] MEDS: DILAUDID IV PRN (09:18)
--- NOTE | 2018-02-06 09:29 | Hem/Onc Progress Note ---
Assessment and Plan At this time continue postop care. Once he is discharged, I will set him up for a PET scan and also a second opinion from every prior to deciding about adjuvant chemotherapy treatment. I have discussed that with the patient and Dr melissa hernandez is being reviewed by outside path Subjective Date of service: 02/06/18 Interval history: Patient states he feels better. Very alert. In no distress. Objective - Constitutional Vitals: Last Vital Signs Temp 98.4 F 02/06/18 07:35 Pulse 69 02/06/18 07:37 Resp 16 02/06/18 07:35 BP 122/73 02/06/18 07:35 Pulse Ox 97 02/06/18 07:37 - Neck Neck: supple - Respiratory Respiratory effort: Positive: normal - Cardiovascular Rhythm: regular - Gastrointestinal General gastrointestinal: Present: soft (ileostomy) - Labs Lab Results: Laboratory Results - last 24 hr 01/23/18 02/05/18 02/05/18 04:24 11:48 12:45 Sodium Potassium Chloride Carbon Dioxide Anion Gap BUN Creatinine Estimated GFR BUN/Creatinine Ratio Glucose POC Glucose 66 L 75 Calcium Total Bilirubin AST ALT Alkaline Phosphatase Total Protein Albumin Albumin/Globulin Ratio Prealbumin Carcinoembryonic Ag See scanned results 02/05/18 02/05/18 02/06/18 16:53 22:11 03:55 Sodium 136 L Potassium 3.7 Chloride 99.1 Carbon Dioxide 25 Anion Gap 16 BUN 12 Creatinine 0.4 L Estimated GFR > 60 BUN/Creatinine Ratio 30 Glucose 97 POC Glucose 99 176 H Calcium 7.7 L Total Bilirubin 0.30 AST 7 ALT 9 Alkaline Phosphatase 98 Total Protein 4.8 L Albumin 2.1 L Albumin/Globulin Ratio 0.8 Prealbumin 0.240 Carcinoembryonic Ag 02/06/18 07:40 Sodium Potassium Chloride Carbon Dioxide Anion Gap BUN Creatinine Estimated GFR BUN/Creatinine Ratio Glucose POC Glucose 104 Calcium Total Bilirubin AST ALT Alkaline Phosphatase Total Protein Albumin Albumin/Globulin Ratio Prealbumin Carcinoembryonic Ag
--- NOTE | 2018-02-06 09:48 | Progress Note ---
Assessment and Plan 47 yo M s/p Exploratory laparotomy, lysis of adhesions, small bowel resection, right hemicolectomy, partial omentectomy, creation of end ileostomy and mucus fistula, application of wound vac, POD 9 1. 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 Crohn's disease 3. malnutiriton 4. sepsis 5. high grade small bowel obstruction s/p Exploratory laparotomy, lysis of adhesions, ileocecectomy with primary anastomosis on 01/17/18 Plan: 1. consistent carb diet with protein supplements 2. PPI 3. DVT ppx 4. reviewed path with Dr. Dai - PET as outpatient 5. continue wound vac and ostomy care per wound care nurse -> will change patient to home wound vac today prior to discharge 6. PRN pain control -PO percocet 7. OOB, PT 8. strict glucose control, ISS 9. c/w steroid taper 10. Prealbumin and albumin slowly improving, pt encouraged to continue protein supplements at home 11. dc planning per ' with home health care today Stable for dc from surgery standpoint. Will follow up in wound care clinic as per wound nurse and surgery clinic in 2 weeks. D/W Dr. Cabrera Subjective Date of service: 02/06/18 Narrative: Pt seen and examined. No complaints. Feels well. Pain controlled. Tolerating diet. Objective Vital Signs - 12hr 02/05/18 02/05/18 02/06/18 22:00 23:18 00:00 Temperature 98.9 F Pulse Rate 82 Respiratory 18 18 Rate Respiratory 18 Rate [Abdomen] Blood Pressure Blood Pressure 124/73 [Left] O2 Sat by Pulse 98 Oximetry 02/06/18 02/06/18 02/06/18 00:45 00:50 01:00 Temperature 98.6 F Pulse Rate 69 Respiratory 20 20 Rate Respiratory Rate [Abdomen] Blood Pressure 136/81 Blood Pressure [Left] O2 Sat by Pulse 99 Oximetry 02/06/18 02/06/18 02/06/18 04:23 04:31 04:33 Temperature 98.1 F 98.1 F Pulse Rate 70 73 80 Respiratory 20 20 Rate Respiratory Rate [Abdomen] Blood Pressure 125/80 Blood Pressure 125/80 [Left] O2 Sat by Pulse 98 97 97 Oximetry 02/06/18 02/06/18 02/06/18 05:59 07:35 07:37 Temperature 98.4 F Pulse Rate 69 Respiratory 18 16 Rate Respiratory Rate [Abdomen] Blood Pressure Blood Pressure 122/73 [Left] O2 Sat by Pulse 97 Oximetry - General physical appearance Narrative Exam: Gen: AAOx3. NAD CV: S1, S2+ resp: even and unlabored Abd: soft, ND, NT. midline vac in place without leak. Ileostomy with lilquid and soft stool in bad. Colostomy with no stool. Mucosa of both ostomies pink. Ext: no c/c/e - Labs 02/02/18 20:48 02/06/18 03:55 Diabetes panel 02/06/18 Range/Units 03:55 Sodium 136 L (137-145) mmol/L Potassium 3.7 (3.6-5.0) mmol/L Chloride 99.1 (98-107) mmol/L Carbon Dioxide 25 (22-30) mmol/L BUN 12 (9-20) mg/dL Creatinine 0.4 L (0.8-1.5) mg/dL Glucose 97 (75-100) mg/dL Calcium 7.7 L (8.4-10.2) mg/dL AST 7 (5-40) units/L ALT 9 (7-56) units/L Alkaline Phosphatase 98 (35-129) units/L Total Protein 4.8 L (6.3-8.2) g/dL Albumin 2.1 L (3.9-5) g/dL Calcium panel 02/06/18 Range/Units 03:55 Calcium 7.7 L (8.4-10.2) mg/dL Albumin 2.1 L (3.9-5) g/dL Pituitary panel 02/06/18 Range/Units 03:55 Sodium 136 L (137-145) mmol/L Potassium 3.7 (3.6-5.0) mmol/L Chloride 99.1 (98-107) mmol/L Carbon Dioxide 25 (22-30) mmol/L BUN 12 (9-20) mg/dL Creatinine 0.4 L (0.8-1.5) mg/dL Glucose 97 (75-100) mg/dL Calcium 7.7 L (8.4-10.2) mg/dL Adrenal panel 02/06/18 Range/Units 03:55 Sodium 136 L (137-145) mmol/L Potassium 3.7 (3.6-5.0) mmol/L Chloride 99.1 (98-107) mmol/L Carbon Dioxide 25 (22-30) mmol/L BUN 12 (9-20) mg/dL Creatinine 0.4 L (0.8-1.5) mg/dL Glucose 97 (75-100) mg/dL Calcium 7.7 L (8.4-10.2) mg/dL Total Bilirubin 0.30 (0.1-1.2) mg/dL AST 7 (5-40) units/L ALT 9 (7-56) units/L Alkaline Phosphatase 98 (35-129) units/L Total Protein 4.8 L (6.3-8.2) g/dL Albumin 2.1 L (3.9-5) g/dL
[2018-02-06] MEDS: DELTASONE PO SCH (12:18)
[2018-02-06] MEDS: PROTONIX PO SCH (12:18)
--- NOTE | 2018-02-06 12:50 | Discharge Summary ---
<ANDREW COLBY - Last Filed: 02/06/18 15:24> Providers - Providers Date of Admission: 01/17/18 06:09 Date of discharge: 02/06/18 Attending physician: ANDREW COLBY 01/17/18 06:07 Consult to Physician [CONS] Routine Consulting Provider: MICHAEL BOLAÑOS Reason For Exam: high grade small bowel obstruction Place consult to:: Dr. Bolaños Notified:: via her phone Phone number called:: her phone Was contact made?: Yes If yes, spoke with:: Dr. Bolaños Time called:: 05:58 Comment:: Dr. Pimentel (er dr) spoke with Dr. Bolaños 01/17/18 06:08 Consult to Physician [CONS] Routine Consulting Provider: STORM MIX Reason For Exam: high grade small bowel obstruction Place consult to:: Dr. Mix Notified:: Answering Service Phone number called:: [phone] Was contact made?: Yes If yes, spoke with:: Dr. Mix Time called:: 05:52 Comment:: Dr. Pimentel (er dr) spoke with Dr. Mix 01/18/18 10:42 Physical Therapy Evaluation and Treat [CONS] Routine Comment: Reason For Exam: eval and treat 01/22/18 13:41 Consult to Physician [CONS] Routine Comment: Consulting Provider: NUHA SCHWARTZ Physician Instructions: Reason For Exam: newly diagnosed cancer 01/23/18 17:11 Midline [Consult to PICC Line RN] [CONS] Routine Reason For Exam: IV access Type Line:: Midline 01/24/18 10:58 Consult to Dietitian/Nutrition [CONS] Routine Physician Instructions: assess and treat for any deficiencies Reason For Exam: Eval for nutritional deficiency from IBD/cancer Reason for Consult: Malnutrition 01/28/18 14:44 Consult to Wound/ET Nurse [CONS] Routine Reason For Exam: ostomy x2, wound vac 01/29/18 09:16 Consult to Dietitian/Nutrition [CONS] Routine Physician Instructions: Reason For Exam: Reason for Consult: tpn 01/29/18 09:17 Consult to PICC Line RN [CONS] Routine Reason For Exam: TPN, change midline to PICC Type Line:: PICC 01/30/18 10:39 Physical Therapy Evaluation and Treat [CONS] Routine Comment: Reason For Exam: post op, deconditioning 02/02/18 11:43 psychiatry consult [Consult to Mental Health] [CONS] Routine Reason For Exam: depression Place consult to:: maintenance mechanic telephone Notified:: yes Primary care physician: FAUSTINO SAENZ Hospitalization Condition: Stable Hospital course: -- 2 diabetes mellitus; well controlled on insulin, patient's A1c is 6.8, Patient may switch to metformin upon discharge. 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 -- s/p Exploratory laparotomy, lysis of adhesions, small bowel resection, right hemicolectomy, partial omentectomy, creation of end ileostomy and mucus fistula, application of wound vac, Diet advanced by surgery, titrate and DC TPN , surgery following --Oncology following,PET scan as outpatient --Depression and anxiety; continue low dose Xanax Denies suicidal thoughts or ideation, advice to see behavioral health upon discharge --Severe protein calorie malnutrition; nutrition supplements, --Crohn's disease/stricture/ sbo s/p surgery, Imuran and steroid, --Hypertension: On antihypertensives and PRN medications --Tobacco/marijuana use: counseling done --DVT prophylaxis: Heparin --GI prophylaxis: iv protonix Continue physical therapy Patient is medically stable for discharge Advised to follow-up with primary care physician for his medical needs Do not need insulin on discharge, can resume home metformin Disposition: DC/[place]-06 HOME UNDER HOME [facility] Core Measure Documentation - Palliative Care Palliative Care/ Comfort Measures: Not Applicable - Core Measures Any of the following diagnoses?: none Exam - Constitutional Vitals: Temp Pulse Resp BP Pulse Ox 97.8 F 89 12 142/92 98 02/06/18 11:38 02/06/18 11:38 02/06/18 11:38 02/06/18 11:38 02/06/18 11:38 General appearance: Present: no acute distress, well-nourished - EENT Eyes: Present: PERRL, EOM intact - Neck Neck: Present: supple, normal ROM - Respiratory Respiratory effort: normal Respiratory: negative: rales, rhonchi, wheezing - Cardiovascular Rhythm: regular Heart Sounds: Present: S1 & S2 - Extremities Extremities: no ischemia, No edema - Abdominal General gastrointestinal: Present: soft, non-tender, non-distended, normal bowel sounds, other (colostomy intact/surgical wound clean) - Integumentary Integumentary: Present: clear, warm - Musculoskeletal Musculoskeletal: strength equal bilaterally - Psychiatric Psychiatric: appropriate mood/affect, cooperative - Neurologic Neurologic: CNII-XII intact, moves all extremities Plan Activity: no restrictions Diet: diabetic Wound: per wound nurse instructions Follow up with: NUHA SCHWARTZ MD [Staff Physician] - 7 Days FAUSTINO SAENZ MD [Primary Care Provider] - 3-5 Days MICHAEL BOLAÑOS DO [Staff Physician] - 14 Days Prescriptions: ALPRAZolam [Xanax TAB] 0.25 mg PO QHS PRN #10 tablet PRN Reason: Anxiety oxyCODONE /ACETAMINOPHEN [Percocet 5/325 mg] 1 tab PO BID PRN #14 tablet PRN Reason: Pain, Moderate (4-6) Pantoprazole [Protonix TAB] 40 mg PO QDAY #14 tablet <MICHAEL BOLAÑOS - Last Filed: 02/06/18 16:01> Providers - Providers Date of Admission: 01/17/18 06:09 Attending physician: ANDREW COLBY 01/17/18 06:07 Consult to Physician [CONS] Routine Consulting Provider: MICHAEL BOLAÑOS Reason For Exam: high grade small bowel obstruction Place consult to:: Dr. Bolaños Notified:: via her phone Phone number called:: her phone Was contact made?: Yes If yes, spoke with:: Dr. Bolaños Time called:: 05:58 Comment:: Dr. Pimentel (er dr) spoke with Dr. Bolaños 01/17/18 06:08 Consult to Physician [CONS] Routine Consulting Provider: STORM MIX Reason For Exam: high grade small bowel obstruction Place consult to:: Dr. Mix Notified:: Answering Service Phone number called:: [phone] Was contact made?: Yes If yes, spoke with:: Dr. Mix Time called:: 05:52 Comment:: Dr. Pimentel (er dr) spoke with Dr. Mix 01/18/18 10:42 Physical Therapy Evaluation and Treat [CONS] Routine Comment: Reason For Exam: eval and treat 01/22/18 13:41 Consult to Physician [CONS] Routine Comment: Consulting Provider: NUHA SCHWARTZ Physician Instructions: Reason For Exam: newly diagnosed cancer 01/23/18 17:11 Midline [Consult to PICC Line RN] [CONS] Routine Reason For Exam: IV access Type Line:: Midline 01/24/18 10:58 Consult to Dietitian/Nutrition [CONS] Routine Physician Instructions: assess and treat for any deficiencies Reason For Exam: Eval for nutritional deficiency from IBD/cancer Reason for Consult: Malnutrition 01/28/18 14:44 Consult to Wound/ET Nurse [CONS] Routine Reason For Exam: ostomy x2, wound vac 01/29/18 09:16 Consult to Dietitian/Nutrition [CONS] Routine Physician Instructions: Reason For Exam: Reason for Consult: tpn 01/29/18 09:17 Consult to PICC Line RN [CONS] Routine Reason For Exam: TPN, change midline to PICC Type Line:: PICC 01/30/18 10:39 Physical Therapy Evaluation and Treat [CONS] Routine Comment: Reason For Exam: post op, deconditioning 02/02/18 11:43 psychiatry consult [Consult to Mental Health] [CONS] Routine Reason For Exam: depression Place consult to:: maintenance mechanic telephone Notified:: yes Primary care physician: FAUSTINO SAENZ Exam - Constitutional Vitals: Temp Pulse Resp BP Pulse Ox 97.8 F 89 12 142/92 98 02/06/18 11:38 02/06/18 11:38 02/06/18 11:38 02/06/18 11:38 02/06/18 11:38 Plan Activity: other (avoid heavy lifting more than 10 to 15 lbs. ) Weight Bearing Status: Touch Down Weight Bearing Diet: other (continue protein supplements two times per day) Wound: other (keep abdominal area clean and dry, avoid getting dressings wet. May take <5min shower with abdominal area covered.)
--- NOTE | 2018-02-06 14:45 | Consultation ---
History of Present Illness - Reason for Consult Consult date: 02/05/18 Reason for consult: Initial Psychiatric Evaluation - Chief Complaint Chief complaint: "I'm a little discouraged" - History of Present Psychiatric Illness Jose is a 47 year old male who was consulted for psychiatric services due to depression and anxiety. Patient states " I had a partial bowel obstruction, which lead to a full obstruction. As a result, I had an emergency surgery and cancer was found. I now have a colostomy." Patient has no past psychiatric history. He verbalizes prior to long hospitalization stay he had no signs and symptoms of depressed mood or anxiety. He reports " I feel discouraged because I'm the last to know everything. I want to go home so that I can move around and do the things I like to do." Currently, he reports decrease sleep, decrease energy, good appetite, and feelings of hopelessness at times . Symptoms have been present for approximately 10 days. He denies SI/HI, A /VH, and delusions. Allergies: NKDA Past Psychiatric History: Patient denies any psychiatric history. Also he denies previous suicide attempts. Past Psychiatric Medication Trials: N/A History of Trauma/Abuse: Patient denies sexual, physical, and mental abuse. Social History: High School Diploma; Unemployed- no source of income; Lives with mother; 0 children; No spouse; support system- "okay." Family History: Patient denies Medications and Allergies Allergies Allergy/AdvReac Type Severity Reaction Status Date / Time No Known Allergies Allergy Unverified 11/20/17 10:31 Home Medications Medication Instructions Recorded Confirmed Last Taken Type Lisinopril [Zestril TAB] 10 mg PO QDAY 11/20/17 02/01/18 Unknown History Metformin HCl 1 tab PO DAILY 11/20/17 02/01/18 Unknown History Zolpidem [Ambien] 10 mg PO QHS 11/20/17 02/01/18 Unknown History azaTHIOprine [Imuran] 50 mg PO QDAY #30 tablet 12/21/17 02/01/18 Unknown Rx predniSONE [Deltasone] 40 mg PO QDAY #60 tablet 12/21/17 02/01/18 Unknown Rx oxyCODONE /ACETAMINOPHEN [Percocet 1 tab PO BID PRN #14 tablet 12/28/17 Unknown Rx 5/325 mg] ALPRAZolam [Xanax TAB] 0.25 mg PO QHS PRN #10 tablet 02/06/18 Unknown Rx Pantoprazole [Protonix TAB] 40 mg PO QDAY #14 tablet 02/06/18 Unknown Rx oxyCODONE /ACETAMINOPHEN [Percocet 1 tab PO BID PRN #14 tablet 02/06/18 Unknown Rx 5/325 mg] Active Meds: Active Medications Alprazolam (Xanax) 0.25 mg PO Q8H PRN PRN Reason: Anxiety Last Admin: 02/05/18 09:49 Dose: 0.25 mg Dextrose (D50w (25gm) Syringe) 50 ml IV PRN PRN PRN Reason: Hypoglycemia Dextrose (D50w (25gm) Syringe) 50 ml IV ONCE PRN PRN Reason: Hypoglycemia Heparin Sodium (Porcine) (Heparin) 5,000 unit SUB-Q Q8HR [facility] Last Admin: 02/06/18 14:25 Dose: Not Given Hydromorphone HCl (Dilaudid) 0.25 mg IV Q4H PRN PRN Reason: Pain , Severe (7-10) Last Admin: 02/06/18 09:18 Dose: 0.25 mg Insulin Human Isoph/Insulin Regular (Humulin 70/30) 10 unit SUB-Q BIDDIAB [facility] Last Admin: 02/06/18 09:23 Dose: 10 unit Insulin Human Lispro (Humalog) 0 unit SUB-Q ACHS [facility]; Protocol Last Admin: 02/06/18 11:53 Dose: Not Given Labetalol HCl (Normodyne) 10 mg IV Q4H PRN PRN Reason: Blood Pressure Naloxone HCl (Narcan 0.4 Mg/1 Ml) 0.1 mg IV Q2MIN PRN PRN Reason: Res Rate </= 8 or 02 SAT < 92% Ondansetron HCl (Zofran) 4 mg IV Q4H PRN PRN Reason: N/V unrelieved by Reglan Last Admin: 01/28/18 23:13 Dose: 4 mg Oxycodone/Acetaminophen (Percocet 5/325) 2 tab PO Q6H PRN PRN Reason: Pain, Moderate (4-6) Last Admin: 02/06/18 11:39 Dose: 2 tab Pantoprazole Sodium (Protonix) 40 mg PO QDAY [facility] Last Admin: 02/06/18 12:18 Dose: 40 mg Prednisone (Deltasone) 20 mg PO QDAY [facility] Last Admin: 02/06/18 12:18 Dose: 20 mg Sodium Chloride (Nacl 0.9%) 1,000 ml IR PRN PRN PRN Reason: Wound Care Mental Status Exam - Vital signs Last Vital Signs Temp 97.8 F 02/06/18 11:38 Pulse 89 02/06/18 11:38 Resp 12 02/06/18 11:38 BP 142/92 02/06/18 11:38 Pulse Ox 98 02/06/18 11:38 - Exam Narrative exam: Mental Status Exam General Appearance: Causally Dressed-hospital gown Eye Contact: Intermittent Orientation: Alert and oriented x4 ( person, place, time, and situation) Attitude/Behavior: Cooperative Sensorium: Clear Psychomotor & Musculoskeletal Activity: WNL Mood: "Discouraged." Affect: Appropriate Speech/Language: Normal rate and tone Thought Processes: Organized Thought Content: WNL- None elicited; patient denies Perception: WNL-patient denies Concentration/Attention: Intact Suicidal Ideations/Plan: Patient denies Homicidal Ideations/Plan: Patient denies Results Result Diagrams: 02/02/18 20:48 02/06/18 03:55 Abnormal lab results 02/05/18 02/06/18 02/06/18 Range/Units 22:11 03:55 11:50 Sodium 136 L (137-145) mmol/L Creatinine 0.4 L (0.8-1.5) mg/dL POC Glucose 176 H 113 H (70-105) Calcium 7.7 L (8.4-10.2) mg/dL Total Protein 4.8 L (6.3-8.2) g/dL Albumin 2.1 L (3.9-5) g/dL All other labs normal. Assessment and Plan Assessment and plan: Assessment and plan: Impression: Patient is a 47 year old WM who presents with no past psychiatric history. Depressive symptoms and increase anxious mood are related to long hospital stay. Symptoms have been present for approximately 10 days. He denies SI/HI, A/VH, and delusions. DDx: MDD, single episode, without psychotic features Plan: 1. Discussed outpatient resources/services. 2. At the time medication is not warranted. 3. Spoke with RN and discussed discharge plans. The plan is to discharge patient on 02/06/18. 4. Patient made aware to call 911, report to the emergency room, or contact the crisis hotline in case of a psychiatric emergency.
[2018-02-06 16:21] VITALS: BP 119/80
== END 2018-02-06 16:55 | disposition home health service (06) | DRG 853 ==
LOC: ED 03:23 → 3A 06:09 → 3B-SURG 22:32 → CC1 01-28 22:42 → 3B-SURG 01-29 21:34
PROVIDERS: ADMIT Internal Medicine; ATTEND Internal Medicine
PROC: 0DNB0ZZ Release Ileum, Open Approach (ICD-10-PCS; 2018-01-17)
PROC: 0DTH0ZZ Resection of Cecum, Open Approach (ICD-10-PCS; 2018-01-17)
PROC: 0DB68ZX Excision of Stomach, Via Natural or Artificial Opening Endoscopic, Diagnostic (ICD-10-PCS; 2018-01-23)
PROC: 0DN80ZZ Release Small Intestine, Open Approach (ICD-10-PCS; principal; 2018-01-28)
PROC: 0D1B0Z4 Bypass Ileum to Cutaneous, Open Approach (ICD-10-PCS; 2018-01-28)
PROC: 0DTF0ZZ Resection of Right Large Intestine, Open Approach (ICD-10-PCS; 2018-01-28)
PROC: 0DBU0ZZ Excision of Omentum, Open Approach (ICD-10-PCS; 2018-01-28)
PROC: 30233N1 Transfusion of Nonautologous Red Blood Cells into Peripheral Vein, Percutaneous Approach (ICD-10-PCS; 2018-01-28)
PROC: 02HV33Z Insertion of Infusion Device into Superior Vena Cava, Percutaneous Approach (ICD-10-PCS; 2018-01-29)
DX: A41.9 Sepsis, unspecified organism (principal); E43 Unspecified severe protein-calorie malnutrition; K56.609 Unspecified intestinal obstruction, unspecified as to partial versus complete obstruction; K50.919 Crohn's disease, unspecified, with unspecified complications; C18.9 Malignant neoplasm of colon, unspecified; I10 Essential (primary) hypertension; E11.9 Type 2 diabetes mellitus without complications; F12.90 Cannabis use, unspecified, uncomplicated; K66.0 Peritoneal adhesions (postprocedural) (postinfection); F17.210 Nicotine dependence, cigarettes, uncomplicated; F32.9 Major depressive disorder, single episode, unspecified; Z72.89 Other problems related to lifestyle; Z68.22 Body mass index [BMI] 22.0-22.9, adult; K29.70 Gastritis, unspecified, without bleeding
CPT/HCPCS: 36415; 71045; 71046; 74018; 74176; 80048; 80053; 80061; 81001; 82140; 82378; 82550; 82553; 82962; 83690; 83735; 84100; 84134; 84484; 85007; 85014; 85018; 85025; 85027; 86850; 86900; 86901; 86920; 87040; 88300; 88302; 88305; 88307; 88309; 88331; 88341; 88342; 93005; 93010; 96374; 96375; C9113; J0330; J0690; J1170; J1644; J1720; J1815; J1885; J1956; J2060; J2250; J2270; J2370; J2405; J2543; J2704; J2710; J2920; J3010; J3475; J7030; J7040; J7120; J7500; J7512; P9016; Q0162

== ENCOUNTER 2018-02-10 11:49 | Inpatient (IN) | payer OTHER ==
[2018-02-10] MEDS ORDERED: NACL 0.9% 500 ML 500 ML IV ONE (12:02)
--- NOTE | 2018-02-10 12:19 | Emergency Department Report ---
ED Abdominal Pain HPI - General Chief Complaint: Abdominal Pain Stated Complaint: ABD PAIN POST SURGERY Time Seen by Provider: 02/10/18 11:58 Source: patient Mode of arrival: Ambulatory Limitations: No Limitations - History of Present Illness Initial Comments: Patient is a 47-year-old male presents to emergency room with abdominal pain that is a 10 out of 10. Patient denies vomiting but complains of nausea. Patient states she had abdominal surgery for a small bowel obstruction where he was DC'd 5 days ago. Patient states he has 2 ostomy bags and one of the stomas is draining purulent discharge. Patient states he also has an midline open wound that has purulent discharge. Patient states that he had a wound VAC but home health care would not pay for it so he took it off. He states he is unable to clean his incisions due to not knowing how to. Patient complains of fever and chills. Patient denies chest pain shortness of breath. Patient states the abdominal pain is worse with movement and better with rest. Patient states that his pain is also better with his pain medications. Patient states he has a history of diabetes and hypertension and Crohn disease and bowel obstructions. MD Complaint: abdominal pain -: Sudden Location: diffuse Radiation: none Migration to: no migration Severity scale (0 -10): 10 Quality: stabbing Consistency: constant Improves With: medication, rest Worsens With: movement Context: recent surgery/procedure Associated Symptoms: nausea, fever, chills. denies: vomiting, diarrhea, constipation, dysuria, hematemesis, hematochezia, melena, hematuria, anorexia, syncope - Related Data Home Medications Medication Instructions Recorded Confirmed Last Taken Lisinopril [Zestril TAB] 10 mg PO QDAY 11/20/17 02/01/18 Unknown Metformin HCl 1 tab PO DAILY 11/20/17 02/01/18 Unknown Zolpidem [Ambien] 10 mg PO QHS 11/20/17 02/01/18 Unknown Previous Rx's Medication Instructions Recorded Last Taken Type azaTHIOprine [Imuran] 50 mg PO QDAY #30 tablet 12/21/17 Unknown Rx predniSONE [Deltasone] 40 mg PO QDAY #60 tablet 12/21/17 Unknown Rx oxyCODONE /ACETAMINOPHEN [Percocet 1 tab PO BID PRN #14 tablet 12/28/17 Unknown Rx 5/325 mg] ALPRAZolam [Xanax TAB] 0.25 mg PO QHS PRN #10 tablet 02/06/18 Unknown Rx Pantoprazole [Protonix TAB] 40 mg PO QDAY #14 tablet 02/06/18 Unknown Rx oxyCODONE /ACETAMINOPHEN [Percocet 1 tab PO BID PRN #14 tablet 02/06/18 Unknown Rx 5/325 mg] Allergies Allergy/AdvReac Type Severity Reaction Status Date / Time No Known Allergies Allergy Unverified 02/10/18 12:01 ED Review of Systems ROS: Stated complaint: ABD PAIN POST SURGERY Other details as noted in HPI Comment: All other systems reviewed and negative Constitutional: chills, fever, weakness Eyes: denies: eye pain, eye discharge, vision change ENT: denies: ear pain, throat pain Respiratory: denies: cough, shortness of breath, wheezing Cardiovascular: denies: chest pain, palpitations Endocrine: no symptoms reported Gastrointestinal: abdominal pain, nausea. denies: vomiting, diarrhea Genitourinary: denies: urgency, dysuria Musculoskeletal: denies: back pain, joint swelling, arthralgia Skin: denies: rash, lesions Neurological: denies: headache, weakness, paresthesias Psychiatric: denies: anxiety, depression Hematological/Lymphatic: denies: easy bleeding, easy bruising ED Past Medical Hx - Past Medical History Previous Medical History?: Yes Hx Hypertension: Yes Hx Diabetes: Yes Hx Deep Vein Thrombosis: No Hx COPD: No Hx HIV: No Additional medical history: Crohn's Disease, Bowel obstruction - Surgical History Past Surgical History?: Yes Hx Pacemaker: No Hx Internal Defibrillator: No Additional Surgical History: 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 Gastric surgery (patient uncertain what was done) - Family History Family history: hypertension - Social History Smoking Status: Never Smoker Substance Use Type: None - Medications Home Medications: Home Medications Medication Instructions Recorded Confirmed Last Taken Type Lisinopril [Zestril TAB] 10 mg PO QDAY 11/20/17 02/01/18 Unknown History Metformin HCl 1 tab PO DAILY 11/20/17 02/01/18 Unknown History Zolpidem [Ambien] 10 mg PO QHS 11/20/17 02/01/18 Unknown History azaTHIOprine [Imuran] 50 mg PO QDAY #30 tablet 12/21/17 02/01/18 Unknown Rx predniSONE [Deltasone] 40 mg PO QDAY #60 tablet 12/21/17 02/01/18 Unknown Rx oxyCODONE /ACETAMINOPHEN [Percocet 1 tab PO BID PRN #14 tablet 12/28/17 Unknown Rx 5/325 mg] ALPRAZolam [Xanax TAB] 0.25 mg PO QHS PRN #10 tablet 02/06/18 Unknown Rx Pantoprazole [Protonix TAB] 40 mg PO QDAY #14 tablet 02/06/18 Unknown Rx oxyCODONE /ACETAMINOPHEN [Percocet 1 tab PO BID PRN #14 tablet 02/06/18 Unknown Rx 5/325 mg] ED Physical Exam - General Limitations: No Limitations General appearance: alert, in no apparent distress - Head Head exam: Present: atraumatic, normocephalic - Eye Eye exam: Present: normal appearance - ENT ENT exam: Present: mucous membranes moist - Neck Neck exam: Present: normal inspection - Respiratory Respiratory exam: Present: normal lung sounds bilaterally. Absent: respiratory distress - Cardiovascular Cardiovascular Exam: Present: regular rate, normal rhythm. Absent: systolic murmur, diastolic murmur, rubs, gallop - GI/Abdominal GI/Abdominal exam: Present: soft, tenderness, normal bowel sounds, other ( [place] discharge noted around midline wound and the left stoma) - Rectal Rectal exam: Present: deferred - Extremities Exam Extremities exam: Present: normal inspection - Back Exam Back exam: Present: normal inspection - Neurological Exam Neurological exam: Present: alert, oriented X3 - Psychiatric Psychiatric exam: Present: normal affect, normal mood - Skin Skin exam: Present: warm, dry, intact, normal color. Absent: rash ED Course Vital Signs 02/10/18 02/10/18 02/10/18 11:55 12:04 12:30 Temperature 98 F Pulse Rate 141 H 137 H 117 H Respiratory 16 16 24 Rate Blood Pressure 126/89 131/91 O2 Sat by Pulse 98 100 Oximetry 02/10/18 02/10/18 02/10/18 13:00 13:30 14:00 Temperature Pulse Rate 111 H 100 H 99 H Respiratory Rate Blood Pressure 138/92 130/85 136/89 O2 Sat by Pulse 100 100 100 Oximetry 02/10/18 02/10/18 02/10/18 14:30 15:00 15:30 Temperature Pulse Rate 105 H Respiratory 22 Rate Blood Pressure 130/84 120/83 120/83 O2 Sat by Pulse 99 100 99 Oximetry 02/10/18 02/10/18 02/10/18 16:00 16:30 17:00 Temperature Pulse Rate 95 H 89 Respiratory 10 L 11 L Rate Blood Pressure 106/73 110/65 126/80 O2 Sat by Pulse 99 100 100 Oximetry 02/10/18 02/10/18 02/10/18 17:01 17:11 17:21 Temperature Pulse Rate 86 Respiratory 18 Rate Blood Pressure 126/80 126/80 O2 Sat by Pulse 100 100 Oximetry 02/10/18 02/10/18 17:30 17:40 Temperature Pulse Rate Respiratory Rate Blood Pressure 130/89 130/89 O2 Sat by Pulse 100 Oximetry - Reevaluation(s) Reevaluation #1: Discussed case with Dr. gordon. She recommends for workup and admission to the hospitalist for further evaluation and treatment and consult her after admission Reevaluation #2: Dr. gordon at bedside. Dr Gordon recommends discontinuing the CT scan due to pain most likely coming from sepsis and wound infection. Wound infection is due to stool from ostomy bag leaking into midline wound. Heart rate is improving with fluids. Will continue therapy and admit patient to hospitalist. 02/10/18 14:29 ED Medical Decision Making - Lab Data Result diagrams: 02/10/18 12:15 02/10/18 12:15 - EKG Data -: EKG Interpreted by Tx EKG shows normal: sinus rhythm, axis, intervals, QRS complexes, ST-T waves Rate: tachycardia - Medical Decision Making 47-year-old gentleman that presents emergency room with sepsis and wound infection. Will admit patient for further evaluation and treatment. Dr. Gordon consulted and recommends admission to the hospitalist. Hospitalist consulted for admission. - Differential Diagnosis sepsis. Abdominal pain. Wound infection. Critical Care Time: Yes Critical care attestation.: If time is entered above; I have spent that time in minutes in the direct care of this critically ill patient, excluding procedure time. Critical Care Time: 45 minutes for critical care time ED Disposition Clinical Impression: Abdominal pain, Sepsis, Wound infection after surgery, Acute abdominal pain, Diabetes Disposition: OP ADMIT IP TO THIS HOSP Is pt being admited?: Yes Does the pt Need Aspirin: No Condition: Critical Time of Disposition: 14:32
[2018-02-10 12:26] LABS: Basophils % (Auto) 0.4 % (0.0-1.8); Eosinophils # (Auto) 0.1 K/mm3 (0.0-0.4); Eosinophils % (Auto) 0.8 % (0.0-4.3); Hematocrit 37.5 % (35.5-45.6); Hemoglobin 11.9 gm/dl (11.8-15.2); Lymphocytes # (Auto) 0.7 K/mm3 (1.2-5.4); Lymphocytes % (Auto) 8.7 % (13.4-35.0); Mean Corpuscular HGB Conc 32 % (32-34); Mean Corpuscular Hemoglobin 27 pg (28-32); Mean Corpuscular Volume 85 fl (84-94); Monocytes # (Auto) 1.2 K/mm3 (0.0-0.8); Monocytes % (Auto) 15.9 % (0.0-7.3); Platelet Count 376 K/mm3 (140-440); Red Blood Count 4.39 M/mm3 (3.65-5.03); Red Cell Distribution Width 16.8 % (13.2-15.2)
[2018-02-10] MEDS ORDERED: NACL 0.9% 500 ML IR ONE (12:34)
[2018-02-10 12:35] LABS: INR 0.93 (0.87-1.13)
[2018-02-10] MEDS ORDERED: NACL 0.9% 1000 ML 1,000 ML IV ONE ×3 (12:42→14:33)
[2018-02-10] MEDS ORDERED: DILAUDID IV ONE ×3 (12:42→15:36)
[2018-02-10 12:47] LABS: Alanine Aminotransferase 6 units/L (7-56); BUN/Creatinine Ratio 22; Blood Urea Nitrogen 13 mg/dL (9-20); Hemolysis Index 3
--- NOTE | 2018-02-10 13:03 | XRay Report ---
AP CHEST: HISTORY: Sepsis AP view of the chest demonstrates a normal mediastinal and cardiac contour with clear lungs and normal bony and soft tissue structures. IMPRESSION: Unremarkable AP chest.
[2018-02-10] MEDS ORDERED: ZOFRAN IV ONE (13:17)
[2018-02-10 13:20] LABS: Bacteria,Urine 1+ /HPF (Negative); Bilirubin,Urine NEG (Negative); Blood,Urine NEG (Negative); Color,Urine Amber (Yellow); Mucus,Urine 3+ /HPF
[2018-02-10] MEDS ORDERED: NACL ONE (14:16)
--- NOTE | 2018-02-10 15:47 | History and Physical Report ---
History of Present Illness Chief complaint: I got an infection History of present illness: 47 YO Male with Crohns Disease, DM, HTN, Colon Carcinoma S/P Exlap with Lysis of Adhesions, small bowel resection, right hemicolectomy, partial omentectomy, and creation of end ileostomy and mucus fistula with subsequent application of wound vac. The patient was discharged home with wound vac, wound care and home care upon discharge. Pt states that he was unable/unwilling to pay for home care services and subsequently removed the wound vac, and did not seek further medical care. Pt presents to ED for evaluation. Pt states that he has experienced foul smelling wound discharge for the past 3 days as well as abdominal pain. Pt denies fever, chills, CP, Palpitations, or recent ill contacts. Pt seen and evaluated in ED and found to have Abdominal wall cellulitis. Surgery team consulted, Pt admitted to medical floor. Past History Past Medical History: cancer, diabetes Past Surgical History: bowel surgery, Other ( Other (exlap, ileocecectomy -> exlap, small bowel resection, right hemicolectomy, ileostomy and mucus fistula creation 01/28/18. Exlap, Gastrojejunostomy. Exlap, SBR.)) Social history: single Family history: no significant family history (reviewed) Medications and Allergies Allergies Allergy/AdvReac Type Severity Reaction Status Date / Time No Known Allergies Allergy Unverified 02/10/18 12:01 Home Medications Medication Instructions Recorded Confirmed Last Taken Type Lisinopril [Zestril TAB] 10 mg PO QDAY 11/20/17 02/01/18 Unknown History Metformin HCl 1 tab PO DAILY 11/20/17 02/01/18 Unknown History Zolpidem [Ambien] 10 mg PO QHS 11/20/17 02/01/18 Unknown History azaTHIOprine [Imuran] 50 mg PO QDAY #30 tablet 12/21/17 02/01/18 Unknown Rx predniSONE [Deltasone] 40 mg PO QDAY #60 tablet 12/21/17 02/01/18 Unknown Rx oxyCODONE /ACETAMINOPHEN [Percocet 1 tab PO BID PRN #14 tablet 12/28/17 Unknown Rx 5/325 mg] ALPRAZolam [Xanax TAB] 0.25 mg PO QHS PRN #10 tablet 02/06/18 Unknown Rx Pantoprazole [Protonix TAB] 40 mg PO QDAY #14 tablet 02/06/18 Unknown Rx oxyCODONE /ACETAMINOPHEN [Percocet 1 tab PO BID PRN #14 tablet 02/06/18 Unknown Rx 5/325 mg] Review of Systems Constitutional: no weight loss, no weight gain, no fever, no chills Ears, nose, mouth and throat: no ear pain, no ear discharge, no tinnitis, no decreased hearing, no nose pain, no nasal congestion Cardiovascular: no chest pain, no orthopnea, no palpitations, no rapid/ irregular heart beat, no edema Gastrointestinal: abdominal pain, no nausea, no vomiting, no diarrhea Genitourinary Male: no hematuria, no flank pain, no discharge Rectal: no pain, no incontinence, no bleeding Musculoskeletal: no neck stiffness, no neck pain, no shooting arm pain, no arm numbness/tingling, no low back pain Integumentary: no rash, no pruritis, no redness, no sores, no wounds, no jaundice Neurological: no head injury, no transient paralysis, no paralysis, no weakness , no parathesias, no numbness Psychiatric: no anxiety, no memory loss, no change in sleep habits, no sleep disturbances, no insomnia, no hypersomnia Endocrine: no cold intolerance, no heat intolerance, no polyphagia, no excessive thirst, no polydipsia Hematologic/Lymphatic: no easy bruising, no easy bleeding, no lymphadenopathy, no lymphedema Allergic/Immunologic: no allergic rhinitis, no wheezing, no persistent infections, no anaphylaxis, no angioedema Exam - Constitutional Vitals: Temp Pulse Resp BP Pulse Ox 98 F 99 H 24 136/89 100 02/10/18 11:55 02/10/18 14:00 02/10/18 12:30 02/10/18 14:00 02/10/18 14:00 General appearance: Present: mild distress, disheveled - EENT Eyes: Present: PERRL ENT: hearing intact, clear oral mucosa - Neck Neck: Present: supple, normal ROM - Respiratory Respiratory effort: normal Respiratory: bilateral: CTA - Cardiovascular Heart Sounds: Present: S1 & S2. Absent: rub, click - Extremities Extremities: pulses symmetrical, No edema Peripheral Pulses: within normal limits - Abdominal General gastrointestinal: Present: soft, tender, other (abdominal wall cellulitis) Localized gastrointestinal: tender: epigastric periumbilical Male genitourinary: Present: normal - Integumentary Integumentary: Present: clear, warm, dry - Musculoskeletal Musculoskeletal: gait normal, strength equal bilaterally - Psychiatric Psychiatric: appropriate mood/affect, intact judgment & insight - Neurologic Neurologic: CNII-XII intact, moves all extremities Results - Labs CBC & Chem 7: 02/10/18 12:15 02/10/18 12:15 Labs: Abnormal lab results 02/10/18 02/10/18 Range/Units 12:15 12:15 MCH 27 L (28-32) pg RDW 16.8 H (13.2-15.2) % Lymph % (Auto) 8.7 L (13.4-35.0) % [place] % (Auto) 15.9 H (0.0-7.3) % Lymph # 0.7 L (1.2-5.4) K/mm3 [place] # 1.2 H (0.0-0.8) K/mm3 Seg Neutrophils % 74.2 H (40.0-70.0) % Sodium 134 L (137-145) mmol/L Chloride 93.4 L (98-107) mmol/L Creatinine 0.6 L (0.8-1.5) mg/dL Glucose 174 H (75-100) mg/dL ALT 6 L (7-56) units/L Albumin 3.0 L (3.9-5) g/dL Assessment and Plan - Patient Problems (1) Abdominal wall cellulitis Current Visit: Yes Status: Acute Plan to address problem: IV antibiotics, surgery team consulted in ED. Pt S/P wound debridement in ED, NPO after midnight, for possible surgical intervention in AM. wound care consult. (2) SIRS (systemic inflammatory response syndrome) Current Visit: Yes Status: Acute Plan to address problem: IV antibiotics, IVF resuscitation, monitor uop q shift, CBC (3) Crohns disease Current Visit: Yes Status: Acute Qualifiers: Digestive disease complication type: other complication Plan to address problem: continue steroid therapy, supportive care, pain control, NPO after midnight (4) DVT prophylaxis Current Visit: No Status: Acute Plan to address problem: SCD to BLE while in bed
[2018-02-10] MEDS ORDERED: ZOFRAN IV PRN ×2 (16:04→16:35)
--- NOTE | 2018-02-10 16:34 | Consultation ---
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 He is s/p Exploratory laparotomy, lysis of adhesions, small bowel resection, right hemicolectomy, partial omentectomy, creation of end ileostomy and mucus fistula , application of wound vac on 01/28/18 and Exploratory laparotomy, lysis of adhesions, ileocecectomy with primary anastomosis on 01/17/18. The patient was discharged on 02/07/18 after a prolonged hospitalization. He was set up with wound care and home care upon discharge and had a wound vac for which supplies were delivered to his hospital room. His wound upon discharge and abdominal skin were intact upon discharge and looked healthy. Wound care was supposed to come to his home on Thursday 02/08 to change wound vac and perform ostomy care, however patient states they did not come. He was in contact with the company who told him that he was not approved for wound care and per the patient, he was instructed to remove his wound vac. Unfortunately, the patient did not seek any other care and has been performing his own wound care with wet to dry gauze to the midline wound. He states he did not have any ostomy appliances and both ostomies have been leaking into the wound. He states he started to note a foul smell from the wound. He also c/o about abdominal pain. He denies f/c, cp, sob, n/v. He has been eating well. States the ileostomy is functioning well. Past History Past Medical History: cancer, diabetes, other (Crohns disease) Past Surgical History: Other (exlap, ileocecectomy 01/17/18 -> exlap, small bowel resection, right hemicolectomy, ileostomy and mucus fistula creation . Exlap, Gastrojejunostomy. Exlap, SBR.) Social history: no significant social history, single Family history: no significant family history Medications and Allergies Allergies Allergy/AdvReac Type Severity Reaction Status Date / Time No Known Allergies Allergy Unverified 02/10/18 12:01 Home Medications Medication Instructions Recorded Confirmed Last Taken Type Lisinopril [Zestril TAB] 10 mg PO QDAY 11/20/17 02/01/18 Unknown History Metformin HCl 1 tab PO DAILY 11/20/17 02/01/18 Unknown History Zolpidem [Ambien] 10 mg PO QHS 11/20/17 02/01/18 Unknown History azaTHIOprine [Imuran] 50 mg PO QDAY #30 tablet 12/21/17 02/01/18 Unknown Rx predniSONE [Deltasone] 40 mg PO QDAY #60 tablet 12/21/17 02/01/18 Unknown Rx oxyCODONE /ACETAMINOPHEN [Percocet 1 tab PO BID PRN #14 tablet 12/28/17 Unknown Rx 5/325 mg] ALPRAZolam [Xanax TAB] 0.25 mg PO QHS PRN #10 tablet 02/06/18 Unknown Rx Pantoprazole [Protonix TAB] 40 mg PO QDAY #14 tablet 02/06/18 Unknown Rx oxyCODONE /ACETAMINOPHEN [Percocet 1 tab PO BID PRN #14 tablet 02/06/18 Unknown Rx 5/325 mg] Active Meds: Active Medications Hydromorphone HCl (Dilaudid) 0.5 mg IV Q4H PRN PRN Reason: Pain , Severe (7-10) Sodium Chloride (Nacl 0.45% 1000 Ml) 1,000 mls @ 75 mls/hr IV DIRECT KELLY Ondansetron HCl (Zofran) 8 mg IV Q6H PRN PRN Reason: Nausea Oxycodone/Acetaminophen (Percocet 5/325) 2 tab PO Q6H PRN PRN Reason: Pain, Moderate (4-6) Review of Systems All systems: negative (10 point ROS performed and negative except for above) Exam Vital Signs Temp Pulse Resp BP Pulse Ox 98 F 141 H 16 126/89 98 02/10/18 11:55 02/10/18 11:55 02/10/18 11:55 02/10/18 11:55 02/10/18 11:55 Narrative exam: Gen: AAOx3. NAD ENT: no scleral icterus or conjunctival pallor CV: S1, S2+ tachy Resp: even and unlabored Abd: soft, ND, ileostomy appliance with poor seal and leakage of stool around appliance. Midline abdominal wound with gauze packing. Skin breakdown and excoriation of skin around midline wound, and both ostomies. Packing removed from midline wound. Wound with jc pus and at wound base. Sutures visible along upper 2/3 of wound. Foul smelling. No bowel visible. Mucus fistula appliance removed and skin cleansed with saline. Skin prep applied and new ostomy appliance applied with good seal. Ostomy mucosa is pink and healthy. Ileostomy appliance removed and mucosa is pink and healthy. Loose brown stool in bag. Skin cleansed and swabbed with skin prep. Mastisol applied to skin and new ostomy appliance applied with good seal. Midline wound irrigated with saline and cleansed. Skin prep applied around wound and wound packed gently with saline moistened kerlix. Covered with fluff and coversite dressings. Reinforced at ostomy appliances with tegaderm. Ext: no c/c/e Results - Labs 02/10/18 12:15 02/10/18 12:15 Abnormal lab results 02/10/18 02/10/18 Range/Units 12:15 12:15 MCH 27 L (28-32) pg RDW 16.8 H (13.2-15.2) % Lymph % (Auto) 8.7 L (13.4-35.0) % [place] % (Auto) 15.9 H (0.0-7.3) % Lymph # 0.7 L (1.2-5.4) K/mm3 [place] # 1.2 H (0.0-0.8) K/mm3 Seg Neutrophils % 74.2 H (40.0-70.0) % Sodium 134 L (137-145) mmol/L Chloride 93.4 L (98-107) mmol/L Creatinine 0.6 L (0.8-1.5) mg/dL Glucose 174 H (75-100) mg/dL ALT 6 L (7-56) units/L Albumin 3.0 L (3.9-5) g/dL Diabetes panel 02/10/18 Range/Units 12:15 Sodium 134 L (137-145) mmol/L Potassium 4.3 (3.6-5.0) mmol/L Chloride 93.4 L (98-107) mmol/L Carbon Dioxide 24 (22-30) mmol/L BUN 13 (9-20) mg/dL Creatinine 0.6 L (0.8-1.5) mg/dL Glucose 174 H (75-100) mg/dL Calcium 9.0 D (8.4-10.2) mg/dL AST 12 (5-40) units/L ALT 6 L (7-56) units/L Alkaline Phosphatase 125 (35-129) units/L Total Protein 7.0 D (6.3-8.2) g/dL Albumin 3.0 L (3.9-5) g/dL Calcium panel 02/10/18 Range/Units 12:15 Calcium 9.0 D (8.4-10.2) mg/dL Albumin 3.0 L (3.9-5) g/dL Pituitary panel 02/10/18 Range/Units 12:15 Sodium 134 L (137-145) mmol/L Potassium 4.3 (3.6-5.0) mmol/L Chloride 93.4 L (98-107) mmol/L Carbon Dioxide 24 (22-30) mmol/L BUN 13 (9-20) mg/dL Creatinine 0.6 L (0.8-1.5) mg/dL Glucose 174 H (75-100) mg/dL Calcium 9.0 D (8.4-10.2) mg/dL Adrenal panel 02/10/18 Range/Units 12:15 Sodium 134 L (137-145) mmol/L Potassium 4.3 (3.6-5.0) mmol/L Chloride 93.4 L (98-107) mmol/L Carbon Dioxide 24 (22-30) mmol/L BUN 13 (9-20) mg/dL Creatinine 0.6 L (0.8-1.5) mg/dL Glucose 174 H (75-100) mg/dL Calcium 9.0 D (8.4-10.2) mg/dL Total Bilirubin 0.60 (0.1-1.2) mg/dL AST 12 (5-40) units/L ALT 6 L (7-56) units/L Alkaline Phosphatase 125 (35-129) units/L Total Protein 7.0 D (6.3-8.2) g/dL Albumin 3.0 L (3.9-5) g/dL Assessment and Plan 47 yo M with 1. multiple skin wounds 2. wound infection of surgical wound 3. malnutrition 4. DM 5. Crohns disease 6. colon cancer Plan: 1. Diabetic diet with protein supplements TID, NPO p [place] 2. local wound care daily, wound care consult. Will order dakins and silvadene for wound care and start in am. Will reassess wound in am with wound care nurse. May need surgical debridement. 3. IV abx - vanco, zosyn 4. Prealbumin in am 5. PRN pain control 6. strict glucose control 7. gently IVF hydration 8. repeat labs in am 9. social work c/s - will discuss with SW in am regarding home care/wound care which was set up prior to discharge on last admit. Will need to call wound care company. I am unsure why the patient was denied home care when this was set up prior to dc and all wound care supplies were delivered. D/W Dr. Simpson
[2018-02-10] MEDS ORDERED: SODIUM CHLORIDE FLUSH SYRINGE 10 ML IV PRN (16:35)
[2018-02-10] MEDS ORDERED: TYLENOL PO PRN (16:35)
[2018-02-10] MEDS ORDERED: PERCOCET 5/325 PO PRN (16:46)
[2018-02-10] MEDS ORDERED: D50W (25GM) Syringe IV PRN (16:47)
[2018-02-10] MEDS: HumaLOG SUB-Q SCH (17:35)
[2018-02-10] MEDS: DILAUDID IV PRN (19:19)
[2018-02-10] MEDS: NACL 0.45% 1000 ML 1,000 ML IV SCH (19:22)
[2018-02-10] MEDS: PERCOCET 5/325 PO PRN (21:50)
[2018-02-10] MEDS: AMBIEN PO SCH (21:50)
[2018-02-10] MEDS ORDERED: XANAX PO PRN (22:00)
[2018-02-10] MEDS: SODIUM CHLORIDE FLUSH SYRINGE 10 ML IV SCH (22:47)
[2018-02-11] MEDS: DILAUDID IV PRN ×4 (00:20→19:16)
[2018-02-11] MEDS: HumaLOG SUB-Q SCH ×4 (01:05→19:17)
[2018-02-11] MEDS: PERCOCET 5/325 PO PRN ×4 (04:17→22:40)
[2018-02-11] MEDS ORDERED: VANCOMYCIN PHARMACY TO DOSE IV SCH ×2 (09:00)
[2018-02-11] MEDS ORDERED: VANCOMYCIN/NS 1 GM/250 ML 1 GM/250 ML BAG IV SCH (09:00)
--- NOTE | 2018-02-11 09:04 | Progress Note ---
<ANTON HAYNES - Last Filed: 02/11/18 13:12> Assessment and Plan Assessment and plan: Wound infection of surgical wound Patient being followed by general surgeon Dr Hamilton, continue IV antibiotics awaiting sensitivity of enterococcus and ecoli SIRS (systemic inflammatory response syndrome) Secondary to above, Continue IVF, continue IV abx - vanco, zosyn. Wound cx prelim - enterococcus and ecoli Malnutrition Nutrition consult Type 2 DM ADA diet, sliding scale insulin, Accu-Cheks before meals and at bedtime Crohns disease Will hold steroid therapy and Imuran per surgical team, supportive care, pain control Colon cancer DVT prophylaxis SCD to BLE while in bed History Interval history: Patient seen and examined. Complains of abdominal pain from incisions. Labs and nursing notes reviewed Hospitalist Physical - Constitutional Vitals: Temp Pulse Resp BP Pulse Ox 98.4 F 100 H 20 133/87 98 02/11/18 08:00 02/11/18 08:00 02/11/18 08:00 02/11/18 08:00 02/11/18 08:00 General appearance: Present: no acute distress, well-nourished, disheveled - EENT Eyes: Present: PERRL, EOM intact ENT: hearing intact, clear oral mucosa - Neck Neck: Present: supple, normal ROM - Respiratory Respiratory effort: normal Respiratory: bilateral: CTA - Cardiovascular Rhythm: regular Heart Sounds: Present: S1 & S2 - Extremities Extremities: no ischemia, No edema, normal temperature - Abdominal General gastrointestinal: soft, non-tender, non-distended, other (ostomy bags in place) - Psychiatric Psychiatric: appropriate mood/affect, intact judgment & insight, cooperative - Neurologic Neurologic: CNII-XII intact, moves all extremities - Allied Health Allied health notes reviewed: nursing Results - Labs CBC & Chem 7: 02/10/18 12:15 02/10/18 12:15 Labs: Laboratory Last Values WBC 7.6 K/mm3 (4.5-11.0) 02/10/18 12:15 RBC 4.39 M/mm3 (3.65-5.03) 02/10/18 12:15 Hgb 11.9 gm/dl (11.8-15.2) 02/10/18 12:15 Hct 37.5 % (35.5-45.6) 02/10/18 12:15 MCV 85 fl (84-94) 02/10/18 12:15 MCH 27 pg (28-32) L 02/10/18 12:15 MCHC 32 % (32-34) 02/10/18 12:15 RDW 16.8 % (13.2-15.2) H 02/10/18 12:15 Plt Count 376 K/mm3 (140-440) 02/10/18 12:15 Lymph % (Auto) 8.7 % (13.4-35.0) L 02/10/18 12:15 [place] % (Auto) 15.9 % (0.0-7.3) H 02/10/18 12:15 Eos % (Auto) 0.8 % (0.0-4.3) 02/10/18 12:15 Baso % (Auto) 0.4 % (0.0-1.8) 02/10/18 12:15 Lymph # 0.7 K/mm3 (1.2-5.4) L 02/10/18 12:15 [place] # 1.2 K/mm3 (0.0-0.8) H 02/10/18 12:15 Eos # 0.1 K/mm3 (0.0-0.4) 02/10/18 12:15 Baso # 0.0 K/mm3 (0.0-0.1) 02/10/18 12:15 Seg Neutrophils % 74.2 % (40.0-70.0) H 02/10/18 12:15 Seg Neutrophils # 5.6 K/mm3 (1.8-7.7) 02/10/18 12:15 PT 12.9 Sec. (12.2-14.9) 02/10/18 12:15 INR 0.93 (0.87-1.13) 02/10/18 12:15 VBG pH 7.418 (7.320-7.420) 02/10/18 12:15 Sodium 134 mmol/L (137-145) L 02/10/18 12:15 Potassium 4.3 mmol/L (3.6-5.0) 02/10/18 12:15 Chloride 93.4 mmol/L (98-107) L 02/10/18 12:15 Carbon Dioxide 24 mmol/L (22-30) 02/10/18 12:15 Anion Gap 21 mmol/L 02/10/18 12:15 BUN 13 mg/dL (9-20) 02/10/18 12:15 Creatinine 0.6 mg/dL (0.8-1.5) L 02/10/18 12:15 Estimated GFR > 60 ml/min 02/10/18 12:15 BUN/Creatinine Ratio 22 % 02/10/18 12:15 Glucose 174 mg/dL (75-100) H 02/10/18 12:15 POC Glucose 83 (70-105) 02/11/18 05:49 Lactic Acid 1.00 mmol/L (0.7-2.0) 02/10/18 15:23 Calcium 9.0 mg/dL (8.4-10.2) D 02/10/18 12:15 Total Bilirubin 0.60 mg/dL (0.1-1.2) 02/10/18 12:15 AST 12 units/L (5-40) 02/10/18 12:15 ALT 6 units/L (7-56) L 02/10/18 12:15 Alkaline Phosphatase 125 units/L (35-129) 02/10/18 12:15 Total Protein 7.0 g/dL (6.3-8.2) D 02/10/18 12:15 Albumin 3.0 g/dL (3.9-5) L 02/10/18 12:15 Albumin/Globulin Ratio 0.8 % 02/10/18 12:15 Prealbumin 0.130 g/L (0.200-0.400) L 02/11/18 05:52 Urine Color Taylor (Yellow) 02/10/18 13:03 Urine Turbidity Clear (Clear) 02/10/18 13:03 Urine pH 5.0 (5.0-7.0) 02/10/18 13:03 Ur Specific [place] 1.025 (1.003-1.030) 02/10/18 13:03 Urine Protein 30 mg/dl mg/dL (Negative) 02/10/18 13:03 Urine Glucose (UA) Neg mg/dL (Negative) 02/10/18 13:03 Urine Ketones Tr mg/dL (Negative) 02/10/18 13:03 Urine Blood Neg (Negative) 02/10/18 13:03 Urine Nitrite Neg (Negative) 02/10/18 13:03 Urine Bilirubin Neg (Negative) 02/10/18 13:03 Urine Urobilinogen 2.0 mg/dL (<2.0) 02/10/18 13:03 Ur Leukocyte Esterase Neg (Negative) 02/10/18 13:03 Urine WBC (Auto) 3.0 /HPF (0.0-6.0) 02/10/18 13:03 Urine RBC (Auto) 1.0 /HPF (0.0-6.0) 02/10/18 13:03 Urine Bacteria (Auto) 1+ /HPF (Negative) 02/10/18 13:03 Urine Mucus 3+ /HPF 02/10/18 13:03 <ANDREW COLBY - Last Filed: 02/11/18 18:36> History Interval history: I saw and evaluated the patient. I agree with the findings and the plan of care as documented in the Nurse Practitioner's~note, with the following corrections and additions. Patient seen and evaluated medical records reviewed Surgery consultation and recommendations noted and appreciated Wound care, wound cultures requested Add nutrition supplements Continue IV antibiotics Vanco and Zosyn Follow cultures and sensitivities Plan of care discussed with the patient and his nurse Will hold steroids and Imuran Case management for DC planning Hospitalist Physical - Constitutional Vitals: Temp Pulse Resp BP Pulse Ox 102.2 F H 102 H 20 125/74 98 02/11/18 15:56 02/11/18 15:56 02/11/18 15:56 02/11/18 15:56 02/11/18 15:56 Results - Labs CBC & Chem 7: 02/10/18 12:15 02/10/18 12:15 Labs: Laboratory Last Values WBC 7.6 K/mm3 (4.5-11.0) 02/10/18 12:15 RBC 4.39 M/mm3 (3.65-5.03) 02/10/18 12:15 Hgb 11.9 gm/dl (11.8-15.2) 02/10/18 12:15 Hct 37.5 % (35.5-45.6) 02/10/18 12:15 MCV 85 fl (84-94) 02/10/18 12:15 MCH 27 pg (28-32) L 02/10/18 12:15 MCHC 32 % (32-34) 02/10/18 12:15 RDW 16.8 % (13.2-15.2) H 02/10/18 12:15 Plt Count 376 K/mm3 (140-440) 02/10/18 12:15 Lymph % (Auto) 8.7 % (13.4-35.0) L 02/10/18 12:15 [place] % (Auto) 15.9 % (0.0-7.3) H 02/10/18 12:15 Eos % (Auto) 0.8 % (0.0-4.3) 02/10/18 12:15 Baso % (Auto) 0.4 % (0.0-1.8) 02/10/18 12:15 Lymph # 0.7 K/mm3 (1.2-5.4) L 02/10/18 12:15 [place] # 1.2 K/mm3 (0.0-0.8) H 02/10/18 12:15 Eos # 0.1 K/mm3 (0.0-0.4) 02/10/18 12:15 Baso # 0.0 K/mm3 (0.0-0.1) 02/10/18 12:15 Seg Neutrophils % 74.2 % (40.0-70.0) H 02/10/18 12:15 Seg Neutrophils # 5.6 K/mm3 (1.8-7.7) 02/10/18 12:15 PT 12.9 Sec. (12.2-14.9) 02/10/18 12:15 INR 0.93 (0.87-1.13) 02/10/18 12:15 VBG pH 7.418 (7.320-7.420) 02/10/18 12:15 Sodium 134 mmol/L (137-145) L 02/10/18 12:15 Potassium 4.3 mmol/L (3.6-5.0) 02/10/18 12:15 Chloride 93.4 mmol/L (98-107) L 02/10/18 12:15 Carbon Dioxide 24 mmol/L (22-30) 02/10/18 12:15 Anion Gap 21 mmol/L 02/10/18 12:15 BUN 13 mg/dL (9-20) 02/10/18 12:15 Creatinine 0.6 mg/dL (0.8-1.5) L 02/10/18 12:15 Estimated GFR > 60 ml/min 02/10/18 12:15 BUN/Creatinine Ratio 22 % 02/10/18 12:15 Glucose 174 mg/dL (75-100) H 02/10/18 12:15 POC Glucose 97 (70-105) 02/11/18 16:15 Lactic Acid 1.00 mmol/L (0.7-2.0) 02/10/18 15:23 Calcium 9.0 mg/dL (8.4-10.2) D 02/10/18 12:15 Total Bilirubin 0.60 mg/dL (0.1-1.2) 02/10/18 12:15 AST 12 units/L (5-40) 02/10/18 12:15 ALT 6 units/L (7-56) L 02/10/18 12:15 Alkaline Phosphatase 125 units/L (35-129) 02/10/18 12:15 Total Protein 7.0 g/dL (6.3-8.2) D 02/10/18 12:15 Albumin 3.0 g/dL (3.9-5) L 02/10/18 12:15 Albumin/Globulin Ratio 0.8 % 02/10/18 12:15 Prealbumin 0.130 g/L (0.200-0.400) L 02/11/18 05:52 Urine Color Taylor (Yellow) 02/10/18 13:03 Urine Turbidity Clear (Clear) 02/10/18 13:03 Urine pH 5.0 (5.0-7.0) 02/10/18 13:03 Ur Specific [place] 1.025 (1.003-1.030) 02/10/18 13:03 Urine Protein 30 mg/dl mg/dL (Negative) 02/10/18 13:03 Urine Glucose (UA) Neg mg/dL (Negative) 02/10/18 13:03 Urine Ketones Tr mg/dL (Negative) 02/10/18 13:03 Urine Blood Neg (Negative) 02/10/18 13:03 Urine Nitrite Neg (Negative) 02/10/18 13:03 Urine Bilirubin Neg (Negative) 02/10/18 13:03 Urine Urobilinogen 2.0 mg/dL (<2.0) 02/10/18 13:03 Ur Leukocyte Esterase Neg (Negative) 02/10/18 13:03 Urine WBC (Auto) 3.0 /HPF (0.0-6.0) 02/10/18 13:03 Urine RBC (Auto) 1.0 /HPF (0.0-6.0) 02/10/18 13:03 Urine Bacteria (Auto) 1+ /HPF (Negative) 02/10/18 13:03 Urine Mucus 3+ /HPF 02/10/18 13:03
[2018-02-11] MEDS ORDERED: DELTASONE PO SCH (10:00)
[2018-02-11] MEDS ORDERED: IMURAN PO SCH (10:00)
[2018-02-11] MEDS: PROTONIX PO SCH (10:22)
[2018-02-11] MEDS: ZESTRIL PO SCH (10:23)
[2018-02-11] MEDS: SODIUM CHLORIDE FLUSH SYRINGE 10 ML IV SCH ×2 (10:24→21:28)
[2018-02-11] MEDS ORDERED: DAKIN'S HALF STRENGTH TP ONE (12:00)
[2018-02-11] MEDS: THERMAZENE 50 GRAM TP SCH (12:00)
--- NOTE | 2018-02-11 12:36 | Progress Note ---
Assessment and Plan 47 yo M with 1. multiple skin wounds 2. wound infection of surgical wound 3. malnutrition 4. DM 5. Crohns disease 6. colon cancer Plan: 1. Diabetic diet with protein supplements TID, NPO p MN 2. wound assessed with wound care nurses. Will start dakins dressings BID and change/secure ileostomy appliance. Will start ostomy powder/paste to skin excoriations. long-term plan will be to reapply wound vac. No plan for surgical debridement at this time. Will continue to assess wound daily to determine if debridement will be needed. 3. IV abx - vanco, zosyn. Wound cx prelim - enterococcus and ecoli 4. PRN pain control 5. strict glucose control 6. gently IVF hydration 7. repeat labs in am 8. d/w case management - patient is NOT eligible for home care. His insurance will only cover in hospital care and outpatient doctors visits. He will likely not qualify for [facility]. We will continue to work with case management and form an alternate plan for wound care and ostomy care as outpatient. 9. Will reorient patient to ostomy care and wound care prior to discharge. 10. please hold steroids and imuran Thank you for this consultation, please call with questions or concerns. Subjective Date of service: 02/11/18 Narrative: Pt seen and examined. Feels better today. Abd pain is controlled. No n/v, f/c, cp, sob. Objective Vital Signs - 12hr 02/11/18 08:00 Temperature 98.4 F Pulse Rate 100 H Respiratory 20 Rate Blood Pressure 133/87 O2 Sat by Pulse 98 Oximetry - General physical appearance Narrative Exam: Gen: AAOx3. NAD Abd: soft, NT, ND. midline wound packing removed - wound with slough and necrotic tissue over fascia. Fascial sutures are visible in the upper portion of the wound. +Foul smelling drainage. No bowel visible. Ostomies pink. Ileostomy with liquid stool in bag. - Labs 02/10/18 12:15 02/10/18 12:15 Diabetes panel 02/10/18 Range/Units 12:15 Sodium 134 L (137-145) mmol/L Potassium 4.3 (3.6-5.0) mmol/L Chloride 93.4 L (98-107) mmol/L Carbon Dioxide 24 (22-30) mmol/L BUN 13 (9-20) mg/dL Creatinine 0.6 L (0.8-1.5) mg/dL Glucose 174 H (75-100) mg/dL Calcium 9.0 D (8.4-10.2) mg/dL AST 12 (5-40) units/L ALT 6 L (7-56) units/L Alkaline Phosphatase 125 (35-129) units/L Total Protein 7.0 D (6.3-8.2) g/dL Albumin 3.0 L (3.9-5) g/dL Calcium panel 02/10/18 Range/Units 12:15 Calcium 9.0 D (8.4-10.2) mg/dL Albumin 3.0 L (3.9-5) g/dL Pituitary panel 02/10/18 Range/Units 12:15 Sodium 134 L (137-145) mmol/L Potassium 4.3 (3.6-5.0) mmol/L Chloride 93.4 L (98-107) mmol/L Carbon Dioxide 24 (22-30) mmol/L BUN 13 (9-20) mg/dL Creatinine 0.6 L (0.8-1.5) mg/dL Glucose 174 H (75-100) mg/dL Calcium 9.0 D (8.4-10.2) mg/dL Adrenal panel 02/10/18 Range/Units 12:15 Sodium 134 L (137-145) mmol/L Potassium 4.3 (3.6-5.0) mmol/L Chloride 93.4 L (98-107) mmol/L Carbon Dioxide 24 (22-30) mmol/L BUN 13 (9-20) mg/dL Creatinine 0.6 L (0.8-1.5) mg/dL Glucose 174 H (75-100) mg/dL Calcium 9.0 D (8.4-10.2) mg/dL Total Bilirubin 0.60 (0.1-1.2) mg/dL AST 12 (5-40) units/L ALT 6 L (7-56) units/L Alkaline Phosphatase 125 (35-129) units/L Total Protein 7.0 D (6.3-8.2) g/dL Albumin 3.0 L (3.9-5) g/dL
[2018-02-11] MEDS: VANCOMYCIN 1,250 MG in NACL 0.9% 250ML 250 ML IV SCH ×2 (13:23→21:23)
[2018-02-11] MEDS: ZOSYN/NS 4.5GM/100ML 4.5 GM/100 ML VIAL IV SCH ×2 (15:35→21:24)
[2018-02-11] MEDS: AMBIEN PO SCH (21:26)
[2018-02-11] MEDS ORDERED: DAKIN'S FULL STRENGTH TP PRN (22:00)
[2018-02-12] MEDS: HumaLOG SUB-Q SCH ×4 (00:44→18:00)
[2018-02-12] MEDS: NACL 0.45% 1000 ML 1,000 ML IV SCH ×3 (01:03→21:47)
[2018-02-12] MEDS: DILAUDID IV PRN ×3 (01:04→21:43)
[2018-02-12] MEDS: PERCOCET 5/325 PO PRN ×4 (04:50→23:13)
[2018-02-12] MEDS: VANCOMYCIN 1,250 MG in NACL 0.9% 250ML 250 ML IV SCH ×3 (04:53→21:34)
[2018-02-12] MEDS: ZOSYN/NS 4.5GM/100ML 4.5 GM/100 ML VIAL IV SCH ×3 (08:00→23:01)
--- NOTE | 2018-02-12 09:11 | Progress Note ---
<ANTON HAYNES - Last Filed: 02/12/18 14:01> Assessment and Plan Assessment and plan: Wound infection of surgical wound Patient developed a fever overnight, continue IV antibiotics awaiting sensitivity of enterococcus and ecoli Patient being followed by general surgeon Dr Hamilton SIRS (systemic inflammatory response syndrome) Secondary to above, Continue IVF, continue IV abx - vanco, zosyn. Wound cx prelim - enterococcus and ecoli Hypokalemia Supplemented Hypomagnesemia Supplemented Malnutrition Nutrition consult Type 2 DM ADA diet, sliding scale insulin, Accu-Cheks before meals and at bedtime Crohns disease Will hold steroid therapy and Imuran per surgical team, supportive care, pain control Colon cancer DVT prophylaxis SCD to BLE while in bed Case management for DC planning History Interval history: Patient seen and examined. Patient had fever of 102.2 overnight. Labs and nursing notes reviewed Hospitalist Physical - Constitutional Vitals: Temp Pulse Resp BP Pulse Ox 98.7 F 95 H 20 106/72 96 02/12/18 08:36 02/12/18 08:36 02/12/18 08:36 02/12/18 08:36 02/12/18 08:36 General appearance: Present: no acute distress, well-nourished, disheveled - EENT Eyes: Present: PERRL, EOM intact ENT: hearing intact, clear oral mucosa - Neck Neck: Present: supple, normal ROM - Respiratory Respiratory effort: normal Respiratory: bilateral: CTA - Cardiovascular Rhythm: regular Heart Sounds: Present: S1 & S2 - Extremities Extremities: no ischemia, No edema, normal temperature, normal color - Abdominal General gastrointestinal: soft, non-tender, non-distended, normal bowel sounds, other ([address], midline dressing) - Integumentary Integumentary: Present: clear, warm, dry - Psychiatric Psychiatric: appropriate mood/affect, intact judgment & insight, cooperative - Neurologic Neurologic: CNII-XII intact, moves all extremities - Allied Health Allied health notes reviewed: nursing Results - Labs CBC & Chem 7: 02/12/18 09:34 02/12/18 09:34 Labs: Laboratory Last Values WBC 7.6 K/mm3 (4.5-11.0) 02/10/18 12:15 RBC 4.39 M/mm3 (3.65-5.03) 02/10/18 12:15 Hgb 11.9 gm/dl (11.8-15.2) 02/10/18 12:15 Hct 37.5 % (35.5-45.6) 02/10/18 12:15 MCV 85 fl (84-94) 02/10/18 12:15 MCH 27 pg (28-32) L 02/10/18 12:15 MCHC 32 % (32-34) 02/10/18 12:15 RDW 16.8 % (13.2-15.2) H 02/10/18 12:15 Plt Count 376 K/mm3 (140-440) 02/10/18 12:15 Lymph % (Auto) 8.7 % (13.4-35.0) L 02/10/18 12:15 [place] % (Auto) 15.9 % (0.0-7.3) H 02/10/18 12:15 Eos % (Auto) 0.8 % (0.0-4.3) 02/10/18 12:15 Baso % (Auto) 0.4 % (0.0-1.8) 02/10/18 12:15 Lymph # 0.7 K/mm3 (1.2-5.4) L 02/10/18 12:15 [place] # 1.2 K/mm3 (0.0-0.8) H 02/10/18 12:15 Eos # 0.1 K/mm3 (0.0-0.4) 02/10/18 12:15 Baso # 0.0 K/mm3 (0.0-0.1) 02/10/18 12:15 Seg Neutrophils % 74.2 % (40.0-70.0) H 02/10/18 12:15 Seg Neutrophils # 5.6 K/mm3 (1.8-7.7) 02/10/18 12:15 PT 12.9 Sec. (12.2-14.9) 02/10/18 12:15 INR 0.93 (0.87-1.13) 02/10/18 12:15 VBG pH 7.418 (7.320-7.420) 02/10/18 12:15 Sodium 134 mmol/L (137-145) L 02/10/18 12:15 Potassium 4.3 mmol/L (3.6-5.0) 02/10/18 12:15 Chloride 93.4 mmol/L (98-107) L 02/10/18 12:15 Carbon Dioxide 24 mmol/L (22-30) 02/10/18 12:15 Anion Gap 21 mmol/L 02/10/18 12:15 BUN 13 mg/dL (9-20) 02/10/18 12:15 Creatinine 0.6 mg/dL (0.8-1.5) L 02/10/18 12:15 Estimated GFR > 60 ml/min 02/10/18 12:15 BUN/Creatinine Ratio 22 % 02/10/18 12:15 Glucose 174 mg/dL (75-100) H 02/10/18 12:15 POC Glucose 108 (70-105) H 02/12/18 07:14 Lactic Acid 1.00 mmol/L (0.7-2.0) 02/10/18 15:23 Calcium 9.0 mg/dL (8.4-10.2) D 02/10/18 12:15 Total Bilirubin 0.60 mg/dL (0.1-1.2) 02/10/18 12:15 AST 12 units/L (5-40) 02/10/18 12:15 ALT 6 units/L (7-56) L 02/10/18 12:15 Alkaline Phosphatase 125 units/L (35-129) 02/10/18 12:15 Total Protein 7.0 g/dL (6.3-8.2) D 02/10/18 12:15 Albumin 3.0 g/dL (3.9-5) L 02/10/18 12:15 Albumin/Globulin Ratio 0.8 % 02/10/18 12:15 Prealbumin 0.130 g/L (0.200-0.400) L 02/11/18 05:52 Urine Color Taylor (Yellow) 02/10/18 13:03 Urine Turbidity Clear (Clear) 02/10/18 13:03 Urine pH 5.0 (5.0-7.0) 02/10/18 13:03 Ur Specific [place] 1.025 (1.003-1.030) 02/10/18 13:03 Urine Protein 30 mg/dl mg/dL (Negative) 02/10/18 13:03 Urine Glucose (UA) Neg mg/dL (Negative) 02/10/18 13:03 Urine Ketones Tr mg/dL (Negative) 02/10/18 13:03 Urine Blood Neg (Negative) 02/10/18 13:03 Urine Nitrite Neg (Negative) 02/10/18 13:03 Urine Bilirubin Neg (Negative) 02/10/18 13:03 Urine Urobilinogen 2.0 mg/dL (<2.0) 02/10/18 13:03 Ur Leukocyte Esterase Neg (Negative) 02/10/18 13:03 Urine WBC (Auto) 3.0 /HPF (0.0-6.0) 02/10/18 13:03 Urine RBC (Auto) 1.0 /HPF (0.0-6.0) 02/10/18 13:03 Urine Bacteria (Auto) 1+ /HPF (Negative) 02/10/18 13:03 Urine Mucus 3+ /HPF 02/10/18 13:03 <ANDREW COLBY - Last Filed: 02/12/18 15:52> History Interval history: I saw and evaluated the patient. I agree with the findings and the plan of care as documented in the Nurse Practitioner's~note, with the following corrections and additions. Multiple electrolyte imbalance Hypokalemia, hypomagnesemia, replacement per protocol Continue empiric antibiotics Follow cultures Follow surgical recommendations Hospitalist Physical - Constitutional Vitals: Temp Pulse Resp BP Pulse Ox 98.7 F 95 H 20 117/58 96 02/12/18 08:36 02/12/18 08:36 02/12/18 08:36 02/12/18 11:30 02/12/18 08:36 Results - Labs CBC & Chem 7: 02/12/18 09:34 02/12/18 09:34 Labs: Laboratory Last Values WBC 4.4 K/mm3 (4.5-11.0) L 02/12/18 09:34 RBC 3.40 M/mm3 (3.65-5.03) L 02/12/18 09:34 Hgb 9.3 gm/dl (11.8-15.2) L 02/12/18 09:34 Hct 28.8 % (35.5-45.6) L D 02/12/18 09:34 MCV 85 fl (84-94) 02/12/18 09:34 MCH 27 pg (28-32) L 02/12/18 09:34 MCHC 32 % (32-34) 02/12/18 09:34 RDW 16.6 % (13.2-15.2) H 02/12/18 09:34 Plt Count 251 K/mm3 (140-440) 02/12/18 09:34 Lymph % (Auto) 8.7 % (13.4-35.0) L 02/10/18 12:15 [place] % (Auto) Conference Director 02/12/18 09:34 Eos % (Auto) 0.8 % (0.0-4.3) 02/10/18 12:15 Baso % (Auto) 0.4 % (0.0-1.8) 02/10/18 12:15 Lymph # 0.7 K/mm3 (1.2-5.4) L 02/10/18 12:15 [place] # 1.2 K/mm3 (0.0-0.8) H 02/10/18 12:15 Eos # 0.1 K/mm3 (0.0-0.4) 02/10/18 12:15 Baso # 0.0 K/mm3 (0.0-0.1) 02/10/18 12:15 Add Manual Diff Complete 02/12/18 09:34 Total Counted 100 02/12/18 09:34 Seg Neutrophils % 74.2 % (40.0-70.0) H 02/10/18 12:15 Seg Neuts % (Manual) 81.0 % (40.0-70.0) H 02/12/18 09:34 Band Neutrophils % 0 % 02/12/18 09:34 Lymphocytes % (Manual) 1.0 % (13.4-35.0) L 02/12/18 09:34 Reactive Lymphs % (Man) 0 % 02/12/18 09:34 Monocytes % (Manual) 15.0 % (0.0-7.3) H 02/12/18 09:34 Eosinophils % (Manual) 2.0 % (0.0-4.3) 02/12/18 09:34 Basophils % (Manual) 1.0 % (0.0-1.8) 02/12/18 09:34 Metamyelocytes % 0 % 02/12/18 09:34 Myelocytes % 0 % 02/12/18 09:34 Promyelocytes % 0 % 02/12/18 09:34 Blast Cells % 0 % 02/12/18 09:34 Nucleated RBC % Not Reportable 02/12/18 09:34 Seg Neutrophils # 5.6 K/mm3 (1.8-7.7) 02/10/18 12:15 Seg Neutrophils # Man 3.6 K/mm3 (1.8-7.7) 02/12/18 09:34 Band Neutrophils # 0.0 K/mm3 02/12/18 09:34 Lymphocytes # (Manual) 0.0 K/mm3 (1.2-5.4) L 02/12/18 09:34 Abs React Lymphs (Man) 0.0 K/mm3 02/12/18 09:34 Monocytes # (Manual) 0.7 K/mm3 (0.0-0.8) 02/12/18 09:34 Eosinophils # (Manual) 0.1 K/mm3 (0.0-0.4) 02/12/18 09:34 Basophils # (Manual) 0.0 K/mm3 (0.0-0.1) 02/12/18 09:34 Metamyelocytes # 0.0 K/mm3 02/12/18 09:34 Myelocytes # 0.0 K/mm3 02/12/18 09:34 Promyelocytes # 0.0 K/mm3 02/12/18 09:34 Blast Cells # 0.0 K/mm3 02/12/18 09:34 WBC Morphology Not Reportable 02/12/18 09:34 Hypersegmented Neuts Not Reportable 02/12/18 09:34 Hyposegmented Neuts Not Reportable 02/12/18 09:34 Hypogranular Neuts Not Reportable 02/12/18 09:34 Smudge Cells Not Reportable 02/12/18 09:34 Toxic Granulation Not Reportable 02/12/18 09:34 Toxic Vacuolation Not Reportable 02/12/18 09:34 Dohle Bodies Not Reportable 02/12/18 09:34 Pelger-Huet Anomaly Not Reportable 02/12/18 09:34 Christina Rods Not Reportable 02/12/18 09:34 Platelet Estimate Appears normal 02/12/18 09:34 Clumped Platelets Few 02/12/18 09:34 Plt Clumps, EDTA Not Reportable 02/12/18 09:34 Large Platelets Not Reportable 02/12/18 09:34 Giant Platelets Not Reportable 02/12/18 09:34 Platelet Satelliting Not Reportable 02/12/18 09:34 Plt Morphology Comment Not Reportable 02/12/18 09:34 RBC Morphology Not Reportable 02/12/18 09:34 Dimorphic RBCs Not Reportable 02/12/18 09:34 Polychromasia Not Reportable 02/12/18 09:34 Hypochromasia Not Reportable 02/12/18 09:34 Poikilocytosis Not Reportable 02/12/18 09:34 Anisocytosis 1+ 02/12/18 09:34 Microcytosis Not Reportable 02/12/18 09:34 Macrocytosis Not Reportable 02/12/18 09:34 Spherocytes Not Reportable 02/12/18 09:34 Pappenheimer Bodies Not Reportable 02/12/18 09:34 Sickle Cells Not Reportable 02/12/18 09:34 Target Cells Not Reportable 02/12/18 09:34 Tear Drop Cells Not Reportable 02/12/18 09:34 Ovalocytes 1+ 02/12/18 09:34 Stomatocytes 1+ 02/12/18 09:34 Helmet Cells Not Reportable 02/12/18 09:34 [place] Bodies Not Reportable 02/12/18 09:34 [place] Rings Not Reportable 02/12/18 09:34 [place] Cells Not Reportable 02/12/18 09:34 Bite Cells Not Reportable 02/12/18 09:34 Crenated Cell Not Reportable 02/12/18 09:34 Elliptocytes 1+ 02/12/18 09:34 Acanthocytes (Spur) Not Reportable 02/12/18 09:34 Rouleaux Not Reportable 02/12/18 09:34 Hemoglobin C Crystals Not Reportable 02/12/18 09:34 Schistocytes Not Reportable 02/12/18 09:34 Malaria parasites Not Reportable 02/12/18 09:34 [place] Bodies Not Reportable 02/12/18 09:34 Hem Pathologist Commnt No 02/12/18 09:34 PT 12.9 Sec. (12.2-14.9) 02/10/18 12:15 INR 0.93 (0.87-1.13) 02/10/18 12:15 VBG pH 7.418 (7.320-7.420) 02/10/18 12:15 Sodium 135 mmol/L (137-145) L 02/12/18 09:34 Potassium 3.3 mmol/L (3.6-5.0) L D 02/12/18 09:34 Chloride 99.0 mmol/L (98-107) 02/12/18 09:34 Carbon Dioxide 23 mmol/L (22-30) 02/12/18 09:34 Anion Gap 16 mmol/L 02/12/18 09:34 BUN 5 mg/dL (9-20) L 02/12/18 09:34 Creatinine 0.4 mg/dL (0.8-1.5) L 02/12/18 09:34 Estimated GFR > 60 ml/min 02/12/18 09:34 BUN/Creatinine Ratio 13 % 02/12/18 09:34 Glucose 139 mg/dL (75-100) H 02/12/18 09:34 POC Glucose 126 (70-105) H 02/12/18 13:47 Lactic Acid 1.00 mmol/L (0.7-2.0) 02/10/18 15:23 Calcium 7.9 mg/dL (8.4-10.2) L 02/12/18 09:34 Phosphorus 3.70 mg/dL (2.5-4.5) 02/12/18 09:34 Magnesium 1.60 mg/dL (1.7-2.3) L 02/12/18 09:34 Total Bilirubin 0.60 mg/dL (0.1-1.2) 02/10/18 12:15 AST 12 units/L (5-40) 02/10/18 12:15 ALT 6 units/L (7-56) L 02/10/18 12:15 Alkaline Phosphatase 125 units/L (35-129) 02/10/18 12:15 Total Protein 7.0 g/dL (6.3-8.2) D 02/10/18 12:15 Albumin 3.0 g/dL (3.9-5) L 02/10/18 12:15 Albumin/Globulin Ratio 0.8 % 02/10/18 12:15 Prealbumin 0.130 g/L (0.200-0.400) L 02/11/18 05:52 Urine Color [place] (Yellow) 02/10/18 13:03 Urine Turbidity Clear (Clear) 02/10/18 13:03 Urine pH 5.0 (5.0-7.0) 02/10/18 13:03 Ur Specific [place] 1.025 (1.003-1.030) 02/10/18 13:03 Urine Protein 30 mg/dl mg/dL (Negative) 02/10/18 13:03 Urine Glucose (UA) Neg mg/dL (Negative) 02/10/18 13:03 Urine Ketones Tr mg/dL (Negative) 02/10/18 13:03 Urine Blood Neg (Negative) 02/10/18 13:03 Urine Nitrite Neg (Negative) 02/10/18 13:03 Urine Bilirubin Neg (Negative) 02/10/18 13:03 Urine Urobilinogen 2.0 mg/dL (<2.0) 02/10/18 13:03 Ur Leukocyte Esterase Neg (Negative) 02/10/18 13:03 Urine WBC (Auto) 3.0 /HPF (0.0-6.0) 02/10/18 13:03 Urine RBC (Auto) 1.0 /HPF (0.0-6.0) 02/10/18 13:03 Urine Bacteria (Auto) 1+ /HPF (Negative) 02/10/18 13:03 Urine Mucus 3+ /HPF 02/10/18 13:03
[2018-02-12 09:51] LABS: Hematocrit 28.8 % (35.5-45.6); Hemoglobin 9.3 gm/dl (11.8-15.2); Mean Corpuscular HGB Conc 32 % (32-34); Mean Corpuscular Hemoglobin 27 pg (28-32); Mean Corpuscular Volume 85 fl (84-94); Platelet Count 251 K/mm3 (140-440); Red Cell Distribution Width 16.6 % (13.2-15.2)
[2018-02-12 10:15] LABS: BUN/Creatinine Ratio 13; Blood Urea Nitrogen 5 mg/dL (9-20); Calcium 7.9 mg/dL (8.4-10.2); Hemolysis Index 2
[2018-02-12 10:42] LABS: Total Cells Counted 100
[2018-02-12 10:43] LABS: Anisocytosis 1+
[2018-02-12 10:44] LABS: Ovalocytes 1+; Platelet Clumps Few; Stomatocytes 1+
[2018-02-12] MEDS: PROTONIX PO SCH (10:59)
[2018-02-12] MEDS: ZESTRIL PO SCH (11:30)
[2018-02-12] MEDS ORDERED: MAGNESIUM SULFATE 2GM/50ML 2 GM/50 ML BAG IV ONE (12:00)
[2018-02-12] MEDS: SODIUM CHLORIDE FLUSH SYRINGE 10 ML IV SCH ×2 (12:29→23:14)
--- NOTE | 2018-02-12 13:55 | Progress Note ---
Assessment and Plan 47 yo M with 1. multiple skin wounds 2. wound infection of surgical wound 3. malnutrition 4. DM 5. Crohns disease 6. colon cancer Plan: 1. Diabetic diet with protein supplements TID, NPO p MN tonight 2. continue BID wound care with dakins. OR in am 4/11 for debridement and washout of midline wound 3. IV abx - vanco, zosyn. Wound cx prelim - enterococcus and gram neg rods 4. PRN pain control 5. strict glucose control 6. gently IVF hydration 7. Will reorient patient to ostomy care and wound care prior to discharge. 8. please hold steroids and imuran 9. ISABEL not covered by insurance. DC planning will be to home with twice weekly visit to wound care center. Pt will need to be competent in caring for ostomies on his own prior to dc. Thank you for this consultation, please call with questions or concerns. Subjective Date of service: 02/12/18 Narrative: Pt seen and examined. Feels well. +Fever overnight of 102.2. Packing changed last night by nursing. Pt states he is getting up and ambulating. In discussion with case management and wound care it appears that many attempts were made to teach the patient ostomy care and wound care. The patient was notified of a copay involved with home care which he was unwilling to pay. Therefore, home care was not covered and per case management, the patient was made aware of this. The patient called wound care one day after discharge to inquire about beeping of wound vac. He was instructed over the telephone on how to change the canister and this resolved the beeping. He called wound care nurse again regarding not having home care to change vac and was instructed to removed the vac dressing and apply wet to dry dressings. Per nursing, the patient acknowledged understanding of instructions and willingness to perform wound care. Prior to discharge, the patient was instructed in person of ostomy care and how to change ostomy appliances. Objective Vital Signs - 12hr 02/12/18 02/12/18 02/12/18 08:01 08:36 11:30 Temperature 98.8 F 98.7 F Pulse Rate 95 H Respiratory 12 20 Rate Blood Pressure 113/70 106/72 117/58 O2 Sat by Pulse 96 Oximetry - General physical appearance Narrative Exam: Gen: AAOx3. NAD CV: S1, S2+ resp: even and unlabored Abd: soft, TTP near midline wound. Ileostomy with loose brown stool in bag, colostomy pink with no stool in bag. Midline dressing and all packing removed. Wound base with purulent fluid and slough. Fascial sutures visible, no visible bowel. Wound cleansed with gauze and all purulent material and some slough removed. Wound packed with dakins moistened kerlix and covered with dry 4x4s, ABD pads and secured with tape. - Labs 02/12/18 09:34 02/12/18 09:34 Diabetes panel 02/12/18 Range/Units 09:34 Sodium 135 L (137-145) mmol/L Potassium 3.3 L D (3.6-5.0) mmol/L Chloride 99.0 (98-107) mmol/L Carbon Dioxide 23 (22-30) mmol/L BUN 5 L (9-20) mg/dL Creatinine 0.4 L (0.8-1.5) mg/dL Glucose 139 H (75-100) mg/dL Calcium 7.9 L (8.4-10.2) mg/dL Calcium panel 02/12/18 02/12/18 Range/Units 09:34 09:34 Calcium 7.9 L (8.4-10.2) mg/dL Phosphorus 3.70 (2.5-4.5) mg/dL Pituitary panel 02/12/18 Range/Units 09:34 Sodium 135 L (137-145) mmol/L Potassium 3.3 L D (3.6-5.0) mmol/L Chloride 99.0 (98-107) mmol/L Carbon Dioxide 23 (22-30) mmol/L BUN 5 L (9-20) mg/dL Creatinine 0.4 L (0.8-1.5) mg/dL Glucose 139 H (75-100) mg/dL Calcium 7.9 L (8.4-10.2) mg/dL Adrenal panel 02/12/18 Range/Units 09:34 Sodium 135 L (137-145) mmol/L Potassium 3.3 L D (3.6-5.0) mmol/L Chloride 99.0 (98-107) mmol/L Carbon Dioxide 23 (22-30) mmol/L BUN 5 L (9-20) mg/dL Creatinine 0.4 L (0.8-1.5) mg/dL Glucose 139 H (75-100) mg/dL Calcium 7.9 L (8.4-10.2) mg/dL
[2018-02-12] MEDS: KCL 10MEQ/100ML 10 MEQ/100 ML BAG IV SCH (14:22)
[2018-02-12] MEDS: THERMAZENE 50 GRAM TP SCH (14:23)
--- NOTE | 2018-02-12 14:46 | Query-Infection ---
Deakarlie Black Date:__02/12/2018 [employer] Operator/CDS:___Cierra Phone#:__[phone] Exercise your independent professional judgment when responding to this query. Questions asked do not imply a particular answer is desired or expected. We greatly appreciate your clarification on this issue. Clinical Documentation States: 47 Year old male was admitted on 02/10/2018 for foul smelling wound discharge for the past 3 days as well as abdominal pain. The Hospitalist progress note on 02/12/2018 states "Assessment and plan: Wound infection of surgical wound Patient developed a fever overnight, continue IV antibiotics awaiting sensitivity of enterococcus and ecoli Patient being followed by general surgeon Dr Hamilton." Clinical findings show: (please check applicable parameters) Temp (02/11): 102.2 OR (02/10): 141 RR (02/10): 24 Infection, known /suspected, with some of the following indicators; Specify the infection: 3 General parameters [X] Fever (core temp >38.30C or 100.40F) [ ] Hypothermia (core temp <36C) [X] Heart rate >90 bpm [X] Tachypnea: >20 bpm or pCO2 < 32 mmHg [ ] Altered mental status [ ] Significant edema / +ve fluid balance (>20 ml/kg 24 h) [ ] Hyperglycemia (Bl. glucose >110 mg/dl) w/o diabetes Inflammatory parameters [ ] Leukocytosis (white blood cell count >12,000/l) [ ] Leukopenia (white blood cell count <4,000/l) [ ] Bandemia (immature WBC > 10%) [ ] Leucocyte Left Shift [ ] Plasma procalcitonin>2 SD above the normal value Hemodynamic and tissue perfusion parameters [ ] Arterial hypotension(SBP <90 mmHg, MAP <70 mmHg,or a SBP drop >40 mmHg in adults) [ ] Hyperlactatemia (>3 mmol/l) [ ] Anion Gap (> 11mEG/l) [ ] Decreased capillary refill or mottling Organ dysfunction parameters [ ] Arterial hypoxemia (PaO2/FIO2 <300) [ ] Creatinine increase =0.5 mg/dl [ ] Acute oliguria (urine output <0.5 ml | kg |h or 45 mM/l for at least 2 hrs) [ ] Coagulation abnormalities (INR >1.5 or activated partial thromboplastin time >60 s) [ ] Ileus (absent zoltan wel sounds) [ ] Thrombocytopenia (platelet count <100,000/l) [ ] Hyperbilirubinemia (plasma total bilirubin >4 mg/dl) According to the clinical indications above, can Bacteremia be further specified? If so, please indicate below and in your Progress Notes and/ or Discharge Summary. Indicate if the condition was present on admission. PHYSICIAN RESPONSE: [x ] Sepsis [ ] Severe Sepsis [ ] Septic Shock [ ] Septicemia [ ] Sepsis now resolved [ ] SIRS due to non-infectious cause with organ dysfunction [ ] SIRS due to non-infectious cause without organ dysfunction [x ] Other: Sepsis secondary to intra-abdominal infection [ ] Comment/Explanation: Present on Admission: [x ] Yes (Y) [ ] Clinically undeterminable (W) [ ] No (N) [ ] Ruled Out Please also document response in your Progress Notes and/or Discharge Summary and indicate if the condition was present on admission Notes: SIRS/ SIRS WITH ORGAN DYSFUNCTION Systemic inflammatory response syndrome (SIRS) generally refers to the systemic response to trauma/gandhi or other insult such as Acute Myocardial Infarction, Acute Pancreatitis, and Major Surgery with symptoms including fever, tachycardia , tachypnea, and leukocytosis (1). BACTEREMIA Presence of viable bacteria in the circulating blood (2). This term is reserved for patients that do not manifest above SIRS response. SEPTICEMIA Generally refers to a systemic disease associated with the presence of pathological microorganisms or toxins in the blood, which can include bacteria, viruses, fungi or other organisms (1). SEPSIS Generally refers to SIRS due infection (1). SEVERE SEPSIS Generally refers to sepsis associated with acute organ dysfunction (1). SEPTIC SHOCK Generally refers to circulatory failure associated with severe sepsis (2), and defined as hypotension or hypoperfusion despite adequate fluid resuscitation (1 hour) (3). REFERENCES: 1. [place] [employer]/Society of Critical Care Medicine Consensus Conference. Definitions for sepsis and organ failure and guidelines for the use of innovative therapies in sepsis. Critical Care Med 1992;20:864 - 74. 2. Simba chowdhury MM, Jeffrey BRASHER, Valentín KHANG, Toribio E, Gaston D, Kristian D, Montez J, Slater SM , Pérez JL, Hannah G; International Sepsis Definitions Conference. 2001 SCCM/ESICM/ACCP/ATS/SIS International Sepsis Definitions Conference. Intensive Care Med. 2002;29(4):530-8. Epub 2002Jan 30. Review. PubMed PMID:[id number] 3. ICD-9-CM Official Guidelines for Coding and Reporting 4. Medscape Drugs, Diseases and Procedures references 5. [employer] Textbook of Internal Medicine. 18th Edition MTDD
[2018-02-12] MEDS ORDERED: K-DUR PO NR (15:30)
[2018-02-12] MEDS: AMBIEN PO SCH (21:53)
--- NOTE | 2018-02-12 23:36 | Anesthesia Consultation ---
Anesthesia Consult and Med Hx Date of service: 02/12/18 - Airway Anesthetic Teeth Evaluation: Poor ROM Head & Neck: Adequate Mental/Hyoid Distance: Adequate Mallampati Class: Class II Intubation Access Assessment: Good - Pulmonary Exam CTA: Yes - Cardiac Exam Cardiac Exam: RRR - Pre-Operative Health Status ASA Pre-Surgery Classification: ASA2 Proposed Anesthetic Plan: General - Pre-Anesthesia Comment Pre-Anesthesia Comments: no anesthetic issues in the past. tolerates >4 METS. no n/v, no motion sickness. no cold or flu - Pulmonary Hx Smoking: Yes (quit 3 months ago) SOB: No COPD: No Home Oxygen Therapy: No - Cardiovascular System Hx Hypertension: Yes (takes lisinopril) Hx Pacemaker: No Hx Internal Defibrillator: No - Central Nervous System Hx Psychiatric Problems: No - Endocrine Hx Non-Insulin Dependent Diabetes: Yes (takes metformin) - Other Systems Hx Alcohol Use: Yes (social drinker) Hx Substance Use: Yes (marijuana occasionally) Hx Cancer: Yes - Additional Comments Anesthesia Medical History Comments: patient had bowel surgery with creation of ostomy a month ago... now with multiple surgical wound infections
[2018-02-13] MEDS: HumaLOG SUB-Q SCH ×4 (00:37→18:06)
[2018-02-13] MEDS: VANCOMYCIN 1,250 MG in NACL 0.9% 250ML 250 ML IV SCH ×3 (04:22→20:38)
[2018-02-13] MEDS: PERCOCET 5/325 PO PRN ×3 (06:25→21:48)
[2018-02-13] MEDS: ZOSYN/NS 4.5GM/100ML 4.5 GM/100 ML VIAL IV SCH ×3 (06:27→21:49)
[2018-02-13] MEDS ORDERED: DEMEROL IV PRN (09:33)
[2018-02-13] MEDS ORDERED: TORADOL IV PRN (09:33)
[2018-02-13] MEDS ORDERED: DILAUDID IV PRN ×2 (09:33)
[2018-02-13] MEDS ORDERED: NARCAN 0.4 MG/1 ML IV PRN (09:33)
[2018-02-13] MEDS ORDERED: NACL 0.9% 1000 ML 1,000 ML IV SCH (09:37)
[2018-02-13 09:45] LABS: BUN/Creatinine Ratio 13; Blood Urea Nitrogen 5 mg/dL (9-20); Calcium 7.9 mg/dL (8.4-10.2); Hemolysis Index 1
[2018-02-13] MEDS ORDERED: VERSED IV NR ×2 (10:00)
[2018-02-13] MEDS: DILAUDID IV PRN ×4 (10:05→13:00)
[2018-02-13] MEDS ORDERED: DIPRIVAN 10 MG/ML IV ONE (10:31)
[2018-02-13] MEDS ORDERED: HYDROGEN PEROXIDE ONE (10:32)
[2018-02-13] MEDS ORDERED: NACL ONE (10:32)
[2018-02-13] MEDS ORDERED: MARCAINE 0.5% 0 ML INFILTRATI ONE (10:32)
[2018-02-13] MEDS ORDERED: BACITRACIN ONE (10:32)
[2018-02-13] MEDS ORDERED: ZOFRAN ONE (10:33)
[2018-02-13] MEDS ORDERED: DECADRON ONE (10:34)
[2018-02-13] MEDS ORDERED: XYLOCAINE MPF 2% ONE (10:35)
[2018-02-13] MEDS ORDERED: NACL IRRIGATION ONE (11:03)
[2018-02-13] MEDS ORDERED: NACL 0.9% IR ONE ×2 (11:03)
[2018-02-13] MEDS ORDERED: BACITRACIN IR ONE (11:03)
[2018-02-13] MEDS ORDERED: DILAUDID ONE (12:15)
[2018-02-13] MEDS: PROTONIX PO SCH (12:20)
[2018-02-13] MEDS: ZESTRIL PO SCH (12:21)
--- NOTE | 2018-02-13 12:30 | Operative Report ---
Operative Report Operative Report: Date of Operation: 02/13/18 preOperative diagnosis: Infected abdominal wound postOperative diagnosis: Same as above Procedure performed: Excisional debridement of infected abdominal wound Surgeon:Patricia Gordon DO Anesthesia: LMA Findings: Slough and necrotic tissue removed superior to the fascia and along the edges of the wound Estimated blood loss: <5 mL Specimen: None Complications: None Disposition: Stable to PACU Indication: Patient is a 47-year-old male with a history of Crohn's disease and newly diagnosed colon cancer who underwent exploratory laparotomy, ileocecectomy for small bowel obstruction on 01/17/18. The pathology from the index surgery was cancer. Therefore, he subsequently underwent an exploratory laparoscopy, small bowel resection, right hemicolectomy, creation of ileostomy and mucous fistula. The patient was discharged home with a clean midline wound with wound VAC applied, ostomy appliances. Unfortunately, the ileostomy continued to leak into the midline wound and the patient returned to the emergency room when he noted a foul smell from his wound. The wound was grossly infected and cultures obtained grew enterococcus and gram-negative organisms. Despite local wound care and antibiotics for 48 hours, the wound continues to deteriorate and accumulate purulent exudate. It was therefore decided, the patient would benefit from a surgical debridement. After all risks were discussed and questions answered, consent was signed. Procedure in detail: Patient was identified in the preoperative area, taken back to the operating room, placed on the operating room table in supine position.. After anesthesia was induced, the abdomen and open wound was prepped with Betadine and draped in usual sterile fashion. An Ioban was applied to the abdominal wall and the ostomies isolated from the midline wound out of the field. The midline wound Slough and necrotic tissue was debrided sharply using a 15 blade and Metzenbaum scissors. Great care was taken to ensure that the dissection stayed above the fascia in order to prevent any injury to underlying structures. Approximately 75% of the necrotic tissue was debrided. There was some slough below this visible fascial sutures that was gently swept away using a lap pad. Slough overlying healthy appearing fascia was debrided using the curet. There was punctate bleeding from the edges of the wound and visible fascia. The wound was irrigated with saline. Once the debridement was complete, the wound was irrigated with a pulse lavage and saline containing bacitracin and the lowest setting. The wound dimensions did not change from preoperative measurements taken by wound care. The wound was gently packed with one Dakin's moistened Kerlix. This was covered with 4 x 4 gauze and an ABD pad and secured with Medipore tape. The drapes were then removed and the abdomen cleansed with a wet and dry sponge. The LUQ mucus fistula appliance was changed. Mastisol was applied to the skin and the appliance cut to size and applied in the usual fashion. Mastisol was applied around the ileostomy and a new ileostomy appliance cut to size and applied. An abdominal binder was applied to the patient with a hole cut out to accommodate the right lower quadrant ileostomy. At the end of the case, all sponge, instrument, sharp counts were correct 2. The patient was awoken from anesthesia and taken to PACU in stable condition.
--- NOTE | 2018-02-13 12:52 | Progress Note ---
<ANTON HAYNES - Last Filed: 02/13/18 16:02> Assessment and Plan Assessment and plan: Wound infection of surgical wound Patient developed a fever overnight, continue IV antibiotics awaiting sensitivity of enterococcus and ecoli Status post Excisional debridement of infected abdominal wound Patient being followed by general surgeon Dr Hamilton Sepsis Secondary to above, Continue IVF, continue IV abx - vanco, zosyn ID consulted Hypokalemia Supplemented Hypomagnesemia Supplemented Malnutrition Nutrition consult Type 2 DM ADA diet, sliding scale insulin, Accu-Cheks before meals and at bedtime Crohns disease Will hold steroid therapy and Imuran per surgical team, supportive care, pain control Colon cancer DVT prophylaxis SCD to BLE while in bed Case management for DC planning History Interval history: Patient seen and examined. No new issues overnight. Labs and nursing notes reviewed Hospitalist Physical - Constitutional Vitals: Temp Pulse Resp BP Pulse Ox 99.3 F 97 H 18 123/79 95 02/13/18 09:25 02/13/18 09:25 02/13/18 11:00 02/13/18 09:25 02/13/18 09:25 General appearance: Present: no acute distress, well-nourished - EENT Eyes: Present: PERRL, EOM intact ENT: hearing intact, clear oral mucosa - Neck Neck: Present: supple, normal ROM - Respiratory Respiratory effort: normal Respiratory: bilateral: CTA - Cardiovascular Rhythm: regular Heart Sounds: Present: S1 & S2 - Extremities Extremities: no ischemia, No edema - Abdominal General gastrointestinal: soft, non-tender, non-distended - Integumentary Integumentary: Present: clear, warm, dry - Psychiatric Psychiatric: appropriate mood/affect, intact judgment & insight, cooperative Results - Labs CBC & Chem 7: 02/12/18 09:34 02/13/18 08:29 Labs: Laboratory Last Values WBC 4.4 K/mm3 (4.5-11.0) L 02/12/18 09:34 RBC 3.40 M/mm3 (3.65-5.03) L 02/12/18 09:34 Hgb 9.3 gm/dl (11.8-15.2) L 02/12/18 09:34 Hct 28.8 % (35.5-45.6) L D 02/12/18 09:34 MCV 85 fl (84-94) 02/12/18 09:34 MCH 27 pg (28-32) L 02/12/18 09:34 MCHC 32 % (32-34) 02/12/18 09:34 RDW 16.6 % (13.2-15.2) H 02/12/18 09:34 Plt Count 251 K/mm3 (140-440) 02/12/18 09:34 Lymph % (Auto) 8.7 % (13.4-35.0) L 02/10/18 12:15 Stark % (Auto) Change Consultant 02/12/18 09:34 Eos % (Auto) 0.8 % (0.0-4.3) 02/10/18 12:15 Baso % (Auto) 0.4 % (0.0-1.8) 02/10/18 12:15 Lymph # 0.7 K/mm3 (1.2-5.4) L 02/10/18 12:15 Stark # 1.2 K/mm3 (0.0-0.8) H 02/10/18 12:15 Eos # 0.1 K/mm3 (0.0-0.4) 02/10/18 12:15 Baso # 0.0 K/mm3 (0.0-0.1) 02/10/18 12:15 Add Manual Diff Complete 02/12/18 09:34 Total Counted 100 02/12/18 09:34 Seg Neutrophils % 74.2 % (40.0-70.0) H 02/10/18 12:15 Seg Neuts % (Manual) 81.0 % (40.0-70.0) H 02/12/18 09:34 Band Neutrophils % 0 % 02/12/18 09:34 Lymphocytes % (Manual) 1.0 % (13.4-35.0) L 02/12/18 09:34 Reactive Lymphs % (Man) 0 % 02/12/18 09:34 Monocytes % (Manual) 15.0 % (0.0-7.3) H 02/12/18 09:34 Eosinophils % (Manual) 2.0 % (0.0-4.3) 02/12/18 09:34 Basophils % (Manual) 1.0 % (0.0-1.8) 02/12/18 09:34 Metamyelocytes % 0 % 04/10/18 09:34 Myelocytes % 0 % 02/12/18 09:34 Promyelocytes % 0 % 02/12/18 09:34 Blast Cells % 0 % 02/12/18 09:34 Nucleated RBC % Not Reportable 02/12/18 09:34 Seg Neutrophils # 5.6 K/mm3 (1.8-7.7) 02/10/18 12:15 Seg Neutrophils # Man 3.6 K/mm3 (1.8-7.7) 02/12/18 09:34 Band Neutrophils # 0.0 K/mm3 02/12/18 09:34 Lymphocytes # (Manual) 0.0 K/mm3 (1.2-5.4) L 02/12/18 09:34 Abs React Lymphs (Man) 0.0 K/mm3 02/12/18 09:34 Monocytes # (Manual) 0.7 K/mm3 (0.0-0.8) 02/12/18 09:34 Eosinophils # (Manual) 0.1 K/mm3 (0.0-0.4) 02/12/18 09:34 Basophils # (Manual) 0.0 K/mm3 (0.0-0.1) 02/12/18 09:34 Metamyelocytes # 0.0 K/mm3 02/12/18 09:34 Myelocytes # 0.0 K/mm3 02/12/18 09:34 Promyelocytes # 0.0 K/mm3 02/12/18 09:34 Blast Cells # 0.0 K/mm3 02/12/18 09:34 WBC Morphology Not Reportable 02/12/18 09:34 Hypersegmented Neuts Not Reportable 02/12/18 09:34 Hyposegmented Neuts Not Reportable 02/12/18 09:34 Hypogranular Neuts Not Reportable 02/12/18 09:34 Smudge Cells Not Reportable 02/12/18 09:34 Toxic Granulation Not Reportable 02/12/18 09:34 Toxic Vacuolation Not Reportable 02/12/18 09:34 Dohle Bodies Not Reportable 02/12/18 09:34 Pelger-Huet Anomaly Not Reportable 02/12/18 09:34 Christina Rods Not Reportable 02/12/18 09:34 Platelet Estimate Appears normal 02/12/18 09:34 Clumped Platelets Few 02/12/18 09:34 Plt Clumps, EDTA Not Reportable 02/12/18 09:34 Large Platelets Not Reportable 02/12/18 09:34 Giant Platelets Not Reportable 02/12/18 09:34 Platelet Satelliting Not Reportable 02/12/18 09:34 Plt Morphology Comment Not Reportable 02/12/18 09:34 RBC Morphology Not Reportable 02/12/18 09:34 Dimorphic RBCs Not Reportable 02/12/18 09:34 Polychromasia Not Reportable 02/12/18 09:34 Hypochromasia Not Reportable 02/12/18 09:34 Poikilocytosis Not Reportable 02/12/18 09:34 Anisocytosis 1+ 02/12/18 09:34 Microcytosis Not Reportable 02/12/18 09:34 Macrocytosis Not Reportable 02/12/18 09:34 Spherocytes Not Reportable 02/12/18 09:34 Pappenheimer Bodies Not Reportable 02/12/18 09:34 Sickle Cells Not Reportable 02/12/18 09:34 Target Cells Not Reportable 02/12/18 09:34 Tear Drop Cells Not Reportable 02/12/18 09:34 Ovalocytes 1+ 02/12/18 09:34 Stomatocytes 1+ 02/12/18 09:34 Helmet Cells Not Reportable 02/12/18 09:34 Cleary-Strawn Bodies Not Reportable 02/12/18 09:34 [place] Rings Not Reportable 02/12/18 09:34 [place] Cells Not Reportable 02/12/18 09:34 Bite Cells Not Reportable 02/12/18 09:34 Crenated Cell Not Reportable 02/12/18 09:34 Elliptocytes 1+ 02/12/18 09:34 Acanthocytes (Spur) Not Reportable 02/12/18 09:34 Rouleaux Not Reportable 02/12/18 09:34 Hemoglobin C Crystals Not Reportable 02/12/18 09:34 Schistocytes Not Reportable 02/12/18 09:34 Malaria parasites Not Reportable 02/12/18 09:34 Krishna Bodies Not Reportable 02/12/18 09:34 Hem Pathologist Commnt No 02/12/18 09:34 PT 12.9 Sec. (12.2-14.9) 02/10/18 12:15 INR 0.93 (0.87-1.13) 02/10/18 12:15 VBG pH 7.418 (7.320-7.420) 02/10/18 12:15 Sodium 138 mmol/L (137-145) 02/13/18 08:29 Potassium 3.6 mmol/L (3.6-5.0) 02/13/18 08:29 Chloride 101.9 mmol/L (98-107) 02/13/18 08:29 Carbon Dioxide 25 mmol/L (22-30) 02/13/18 08:29 Anion Gap 15 mmol/L 02/13/18 08:29 BUN 5 mg/dL (9-20) L 02/13/18 08:29 Creatinine 0.4 mg/dL (0.8-1.5) L 02/13/18 08:29 Estimated GFR > 60 ml/min 02/13/18 08:29 BUN/Creatinine Ratio 13 % 02/13/18 08:29 Glucose 99 mg/dL (75-100) 02/13/18 08:29 POC Glucose 100 (70-105) 02/13/18 12:37 Lactic Acid 1.00 mmol/L (0.7-2.0) 02/10/18 15:23 Calcium 7.9 mg/dL (8.4-10.2) L 02/13/18 08:29 Phosphorus 3.70 mg/dL (2.5-4.5) 02/12/18 09:34 Magnesium 1.80 mg/dL (1.7-2.3) 02/13/18 08:29 Total Bilirubin 0.60 mg/dL (0.1-1.2) 02/10/18 12:15 AST 12 units/L (5-40) 02/10/18 12:15 ALT 6 units/L (7-56) L 02/10/18 12:15 Alkaline Phosphatase 125 units/L (35-129) 02/10/18 12:15 Total Protein 7.0 g/dL (6.3-8.2) D 02/10/18 12:15 Albumin 3.0 g/dL (3.9-5) L 02/10/18 12:15 Albumin/Globulin Ratio 0.8 % 02/10/18 12:15 Prealbumin 0.130 g/L (0.200-0.400) L 02/11/18 05:52 Urine Color Taylor (Yellow) 02/10/18 13:03 Urine Turbidity Clear (Clear) 02/10/18 13:03 Urine pH 5.0 (5.0-7.0) 02/10/18 13:03 Ur Specific [place] 1.025 (1.003-1.030) 02/10/18 13:03 Urine Protein 30 mg/dl mg/dL (Negative) 02/10/18 13:03 Urine Glucose (UA) Neg mg/dL (Negative) 02/10/18 13:03 Urine Ketones Tr mg/dL (Negative) 02/10/18 13:03 Urine Blood Neg (Negative) 02/10/18 13:03 Urine Nitrite Neg (Negative) 02/10/18 13:03 Urine Bilirubin Neg (Negative) 02/10/18 13:03 Urine Urobilinogen 2.0 mg/dL (<2.0) 02/10/18 13:03 Ur Leukocyte Esterase Neg (Negative) 02/10/18 13:03 Urine WBC (Auto) 3.0 /HPF (0.0-6.0) 02/10/18 13:03 Urine RBC (Auto) 1.0 /HPF (0.0-6.0) 02/10/18 13:03 Urine Bacteria (Auto) 1+ /HPF (Negative) 02/10/18 13:03 Urine Mucus 3+ /HPF 02/10/18 13:03 <FAUSTINO MOONEY - Last Filed: 02/13/18 18:54> Assessment and Plan Assessment and plan: I saw and evaluated the patient. I agree with the findings and the plan of care as documented in the Nurse Practitioner's~note, with the following corrections and additions. Patient had debridement of wound today by surgeon. Hospitalist Physical - Constitutional Vitals: Temp Pulse Resp BP Pulse Ox 98.0 F 90 20 120/80 98 02/13/18 16:45 02/13/18 16:45 02/13/18 16:45 02/13/18 16:45 02/13/18 16:45 Results - Labs CBC & Chem 7: 02/12/18 09:34 02/13/18 08:29 Labs: Laboratory Last Values WBC 4.4 K/mm3 (4.5-11.0) L 02/12/18 09:34 RBC 3.40 M/mm3 (3.65-5.03) L 02/12/18 09:34 Hgb 9.3 gm/dl (11.8-15.2) L 02/12/18 09:34 Hct 28.8 % (35.5-45.6) L D 02/12/18 09:34 MCV 85 fl (84-94) 02/12/18 09:34 MCH 27 pg (28-32) L 02/12/18 09:34 MCHC 32 % (32-34) 02/12/18 09:34 RDW 16.6 % (13.2-15.2) H 02/12/18 09:34 Plt Count 251 K/mm3 (140-440) 02/12/18 09:34 Lymph % (Auto) 8.7 % (13.4-35.0) L 02/10/18 12:15 Stark % (Auto) Change Consultant 02/12/18 09:34 Eos % (Auto) 0.8 % (0.0-4.3) 02/10/18 12:15 Baso % (Auto) 0.4 % (0.0-1.8) 02/10/18 12:15 Lymph # 0.7 K/mm3 (1.2-5.4) L 02/10/18 12:15 Stark # 1.2 K/mm3 (0.0-0.8) H 02/10/18 12:15 Eos # 0.1 K/mm3 (0.0-0.4) 02/10/18 12:15 Baso # 0.0 K/mm3 (0.0-0.1) 02/10/18 12:15 Add Manual Diff Complete 02/12/18 09:34 Total Counted 100 02/12/18 09:34 Seg Neutrophils % 74.2 % (40.0-70.0) H 02/10/18 12:15 Seg Neuts % (Manual) 81.0 % (40.0-70.0) H 02/12/18 09:34 Band Neutrophils % 0 % 02/12/18 09:34 Lymphocytes % (Manual) 1.0 % (13.4-35.0) L 02/12/18 09:34 Reactive Lymphs % (Man) 0 % 02/12/18 09:34 Monocytes % (Manual) 15.0 % (0.0-7.3) H 02/12/18 09:34 Eosinophils % (Manual) 2.0 % (0.0-4.3) 02/12/18 09:34 Basophils % (Manual) 1.0 % (0.0-1.8) 02/12/18 09:34 Metamyelocytes % 0 % 02/12/18 09:34 Myelocytes % 0 % 02/12/18 09:34 Promyelocytes % 0 % 02/12/18 09:34 Blast Cells % 0 % 02/12/18 09:34 Nucleated RBC % Not Reportable 02/12/18 09:34 Seg Neutrophils # 5.6 K/mm3 (1.8-7.7) 02/10/18 12:15 Seg Neutrophils # Man 3.6 K/mm3 (1.8-7.7) 02/12/18 09:34 Band Neutrophils # 0.0 K/mm3 02/12/18 09:34 Lymphocytes # (Manual) 0.0 K/mm3 (1.2-5.4) L 02/12/18 09:34 Abs React Lymphs (Man) 0.0 K/mm3 02/12/18 09:34 Monocytes # (Manual) 0.7 K/mm3 (0.0-0.8) 02/12/18 09:34 Eosinophils # (Manual) 0.1 K/mm3 (0.0-0.4) 02/12/18 09:34 Basophils # (Manual) 0.0 K/mm3 (0.0-0.1) 02/12/18 09:34 Metamyelocytes # 0.0 K/mm3 02/12/18 09:34 Myelocytes # 0.0 K/mm3 02/12/18 09:34 Promyelocytes # 0.0 K/mm3 02/12/18 09:34 Blast Cells # 0.0 K/mm3 02/12/18 09:34 WBC Morphology Not Reportable 02/12/18 09:34 Hypersegmented Neuts Not Reportable 02/12/18 09:34 Hyposegmented Neuts Not Reportable 02/12/18 09:34 Hypogranular Neuts Not Reportable 02/12/18 09:34 Smudge Cells Not Reportable 02/12/18 09:34 Toxic Granulation Not Reportable 02/12/18 09:34 Toxic Vacuolation Not Reportable 02/12/18 09:34 Dohle Bodies Not Reportable 02/12/18 09:34 Pelger-Huet Anomaly Not Reportable 02/12/18 09:34 Christina Rods Not Reportable 02/12/18 09:34 Platelet Estimate Appears normal 02/12/18 09:34 Clumped Platelets Few 02/12/18 09:34 Plt Clumps, EDTA Not Reportable 02/12/18 09:34 Large Platelets Not Reportable 02/12/18 09:34 Giant Platelets Not Reportable 02/12/18 09:34 Platelet Satelliting Not Reportable 02/12/18 09:34 Plt Morphology Comment Not Reportable 02/12/18 09:34 RBC Morphology Not Reportable 02/12/18 09:34 Dimorphic RBCs Not Reportable 02/12/18 09:34 Polychromasia Not Reportable 02/12/18 09:34 Hypochromasia Not Reportable 02/12/18 09:34 Poikilocytosis Not Reportable 02/12/18 09:34 Anisocytosis 1+ 02/12/18 09:34 Microcytosis Not Reportable 02/12/18 09:34 Macrocytosis Not Reportable 02/12/18 09:34 Spherocytes Not Reportable 02/12/18 09:34 Pappenheimer Bodies Not Reportable 02/12/18 09:34 Sickle Cells Not Reportable 02/12/18 09:34 Target Cells Not Reportable 02/12/18 09:34 Tear Drop Cells Not Reportable 02/12/18 09:34 Ovalocytes 1+ 02/12/18 09:34 Stomatocytes 1+ 02/12/18 09:34 Helmet Cells Not Reportable 02/12/18 09:34 Cleary-Strawn Bodies Not Reportable 02/12/18 09:34 [place] Rings Not Reportable 02/12/18 09:34 [place] Cells Not Reportable 02/12/18 09:34 Bite Cells Not Reportable 02/12/18 09:34 Crenated Cell Not Reportable 02/12/18 09:34 Elliptocytes 1+ 02/12/18 09:34 Acanthocytes (Spur) Not Reportable 02/12/18 09:34 Rouleaux Not Reportable 02/12/18 09:34 Hemoglobin C Crystals Not Reportable 02/12/18 09:34 Schistocytes Not Reportable 02/12/18 09:34 Malaria parasites Not Reportable 02/12/18 09:34 Krishna Bodies Not Reportable 02/12/18 09:34 Hem Pathologist Commnt No 02/12/18 09:34 PT 12.9 Sec. (12.2-14.9) 02/10/18 12:15 INR 0.93 (0.87-1.13) 02/10/18 12:15 VBG pH 7.418 (7.320-7.420) 02/10/18 12:15 Sodium 138 mmol/L (137-145) 02/13/18 08:29 Potassium 3.6 mmol/L (3.6-5.0) 02/13/18 08:29 Chloride 101.9 mmol/L (98-107) 02/13/18 08:29 Carbon Dioxide 25 mmol/L (22-30) 02/13/18 08:29 Anion Gap 15 mmol/L 02/13/18 08:29 BUN 5 mg/dL (9-20) L 02/13/18 08:29 Creatinine 0.4 mg/dL (0.8-1.5) L 02/13/18 08:29 Estimated GFR > 60 ml/min 02/13/18 08:29 BUN/Creatinine Ratio 13 % 02/13/18 08:29 Glucose 99 mg/dL (75-100) 02/13/18 08:29 POC Glucose 145 (70-105) H 02/13/18 16:54 Lactic Acid 1.00 mmol/L (0.7-2.0) 02/10/18 15:23 Calcium 7.9 mg/dL (8.4-10.2) L 02/13/18 08:29 Phosphorus 3.70 mg/dL (2.5-4.5) 02/12/18 09:34 Magnesium 1.80 mg/dL (1.7-2.3) 02/13/18 08:29 Total Bilirubin 0.60 mg/dL (0.1-1.2) 02/10/18 12:15 AST 12 units/L (5-40) 02/10/18 12:15 ALT 6 units/L (7-56) L 02/10/18 12:15 Alkaline Phosphatase 125 units/L (35-129) 02/10/18 12:15 Total Protein 7.0 g/dL (6.3-8.2) D 02/10/18 12:15 Albumin 3.0 g/dL (3.9-5) L 02/10/18 12:15 Albumin/Globulin Ratio 0.8 % 02/10/18 12:15 Prealbumin 0.130 g/L (0.200-0.400) L 02/11/18 05:52 Urine Color Taylor (Yellow) 02/10/18 13:03 Urine Turbidity Clear (Clear) 02/10/18 13:03 Urine pH 5.0 (5.0-7.0) 02/10/18 13:03 Ur Specific [place] 1.025 (1.003-1.030) 02/10/18 13:03 Urine Protein 30 mg/dl mg/dL (Negative) 02/10/18 13:03 Urine Glucose (UA) Neg mg/dL (Negative) 02/10/18 13:03 Urine Ketones Tr mg/dL (Negative) 02/10/18 13:03 Urine Blood Neg (Negative) 02/10/18 13:03 Urine Nitrite Neg (Negative) 02/10/18 13:03 Urine Bilirubin Neg (Negative) 02/10/18 13:03 Urine Urobilinogen 2.0 mg/dL (<2.0) 02/10/18 13:03 Ur Leukocyte Esterase Neg (Negative) 02/10/18 13:03 Urine WBC (Auto) 3.0 /HPF (0.0-6.0) 02/10/18 13:03 Urine RBC (Auto) 1.0 /HPF (0.0-6.0) 02/10/18 13:03 Urine Bacteria (Auto) 1+ /HPF (Negative) 02/10/18 13:03 Urine Mucus 3+ /HPF 02/10/18 13:03
[2018-02-13] MEDS: LACTATED RINGERS 1,000 ML IV SCH (14:03)
--- NOTE | 2018-02-13 16:21 | Post Anesthesia Evaluation ---
- Post Anesthesia Evaluation Patient Participated: Yes Airway Patent: Yes Stable Respiratory Function: Yes Nausea/Vomiting: No Temp > 96.8F: Yes Pain Manageable: Yes Adequeate Hydration: Yes Anesthesia Complications: No Patient on Ventilator: No
[2018-02-13] MEDS: SODIUM CHLORIDE FLUSH SYRINGE 10 ML IV SCH ×2 (18:05→21:58)
[2018-02-13] MEDS: AMBIEN PO SCH (21:47)
[2018-02-13] MEDS: LEVAQUIN 500MG/100ML 500 MG/100 ML BAG IV SCH (21:51)
[2018-02-13] MEDS: KCL 10MEQ/100ML 10 MEQ/100 ML BAG IV SCH ×2 (23:38→23:39)
[2018-02-14] MEDS: LACTATED RINGERS 1,000 ML IV SCH (03:27)
[2018-02-14] MEDS: PERCOCET 5/325 PO PRN ×4 (03:28→23:49)
[2018-02-14] MEDS: HumaLOG SUB-Q SCH ×4 (03:30→17:39)
[2018-02-14] MEDS: VANCOMYCIN 1,250 MG in NACL 0.9% 250ML 250 ML IV SCH (04:49)
[2018-02-14] MEDS: ZOSYN/NS 4.5GM/100ML 4.5 GM/100 ML VIAL IV SCH (07:24)
--- NOTE | 2018-02-14 07:49 | Consultation ---
History of Present Illness - Reason for Consult Consult date: 02/14/18 Sepsis Requesting physician: ANTON HAYNES - History of Present Illness HPI: 48 yo M Crohn's disease, DM, HTN, newly diagnosed colon carcinoma, SBO s/p exploratory laparotomy, ileocecectomy on 01/18/18. Pathology from the index surgery came with colon cancer. Therefore, he underwent on 01/28/18 an exploratory laparotomy, small bowel resection, right hemicolectomy, creation of ileostomy and mucous fistula. He was discharged home with a clean midline wound with wound VAC applied, ostomy appliances. Unfortunately, the ileostomy continued to leak into the midline wound and pt had no means to affords home health RN. He returned to the emergency room on 02/10/18 when he noted a foul smell from his wound. He denies F/C, cough, SOB, vomiting, dysuria, skin rash, SHOOK. He was evaluated by the surgical team and was noted to have a grossly infected wound. Wound culture obtained grew Enterococcus faecium and E. coli Despite local wound care and antibiotics for 48 hours, the wound continued to deteriorate and accumulate purulent exudate. Therefore patient was taken for excisional debridement of infected abdominal wound on 02/13/18. He has been on Zosyn and Vancomcyin since 02/13/18. ID is consulted to help with further antibiotic management. Microbiology: Blood cultures: 02/10 NGTD Urine cultures: 02/10 skin gabriela Wound cultures: 02/10 E coli and Enterococcus faecium. Current Antimicrobials: Zosyn 02/11 IV vancomycin 02/11- Levofloxacin 02/13- Past History Past Medical History: cancer, diabetes Past Surgical History: bowel surgery, Other ( Other (exlap, ileocecectomy -> exlap, small bowel resection, right hemicolectomy, ileostomy and mucus fistula creation 01/28/18. Exlap, Gastrojejunostomy. Exlap, SBR.)) Social history: single Family history: no significant family history (reviewed) Medications and Allergies Allergies Allergy/AdvReac Type Severity Reaction Status Date / Time No Known Allergies Allergy Unverified 02/10/18 12:01 Home Medications Medication Instructions Recorded Confirmed Last Taken Type Lisinopril [Zestril TAB] 10 mg PO QDAY 11/20/17 02/01/18 Unknown History Metformin HCl 1 tab PO DAILY 11/20/17 02/01/18 Unknown History Zolpidem [Ambien] 10 mg PO QHS 11/20/17 02/01/18 Unknown History azaTHIOprine [Imuran] 50 mg PO QDAY #30 tablet 12/21/17 02/01/18 Unknown Rx predniSONE [Deltasone] 40 mg PO QDAY #60 tablet 12/21/17 02/01/18 Unknown Rx oxyCODONE /ACETAMINOPHEN [Percocet 1 tab PO BID PRN #14 tablet 12/28/17 Unknown Rx 5/325 mg] ALPRAZolam [Xanax TAB] 0.25 mg PO QHS PRN #10 tablet 02/06/18 Unknown Rx Pantoprazole [Protonix TAB] 40 mg PO QDAY #14 tablet 02/06/18 Unknown Rx oxyCODONE /ACETAMINOPHEN [Percocet 1 tab PO BID PRN #14 tablet 02/06/18 Unknown Rx 5/325 mg] Active Meds: Active Medications Acetaminophen (Tylenol) 650 mg PO Q4H PRN PRN Reason: Pain MILD(1-3)/Fever >100.5/SHOOK Last Admin: 02/11/18 16:10 Dose: 650 mg Alprazolam (Xanax) 0.25 mg PO QHS PRN PRN Reason: Anxiety Dextrose (D50w (25gm) Syringe) 50 ml IV PRN PRN PRN Reason: Hypoglycemia Hydromorphone HCl (Dilaudid) 0.5 mg IV BID PRN PRN Reason: Wound Care Last Admin: 02/12/18 21:43 Dose: 0.5 mg Hydromorphone HCl (Dilaudid) 1 mg IV Q2H PRN PRN Reason: Pain , Severe (7-10) Last Admin: 02/13/18 11:00 Dose: 1 mg Piperacillin Sod/Tazobactam Sod (Zosyn/Ns 4.5gm/100ml) 4.5 gm in 100 mls @ 200 mls/hr IV Q8HR [facility]; Protocol Last Admin: 02/14/18 07:24 Dose: 200 mls/hr Vancomycin HCl 1,250 mg/ (Sodium Chloride) 262.5 mls @ 166.667 mls/hr IV Q8H [facility] Last Admin: 02/14/18 04:49 Dose: 166.667 mls/hr Lactated Ringer's (Lactated Ringers) 1,000 mls @ 125 mls/hr IV DIRECT [facility] Last Admin: 02/14/18 03:27 Dose: 125 mls/hr Sodium Chloride (Nacl 0.9% 1000 Ml) 1,000 mls @ 42 mls/hr IV DIRECT [facility] Last Admin: 02/13/18 10:05 Dose: 42 mls/hr Levofloxacin/Dextrose (Levaquin 500mg/100ml) 500 mg in 100 mls @ 100 mls/hr IV Q24HR [facility]; Protocol Last Admin: 02/13/18 21:51 Dose: 100 mls/hr Insulin Human Lispro (Humalog) 0 unit SUB-Q Q6HR [facility]; Protocol Last Admin: 02/14/18 03:30 Dose: Not Given Lisinopril (Zestril) 10 mg PO QDAY [facility] Last Admin: 02/13/18 12:21 Dose: Not Given Naloxone HCl (Narcan 0.4 Mg/1 Ml) 0.1 mg IV Q2MIN PRN PRN Reason: Res Rate </= 8 or 02 SAT < 92% Ondansetron HCl (Zofran) 4 mg IV Q8H PRN PRN Reason: Nausea And Vomiting Last Admin: 02/12/18 21:44 Dose: 4 mg Oxycodone/Acetaminophen (Percocet 5/325) 2 tab PO Q6H PRN PRN Reason: Pain, Moderate (4-6) Last Admin: 02/14/18 03:28 Dose: 2 tab Pantoprazole Sodium (Protonix) 40 mg PO QDAY [facility] Last Admin: 02/13/18 12:20 Dose: Not Given Sodium Chloride (Sodium Chloride Flush Syringe 10 Ml) 10 ml IV BID [facility] Last Admin: 02/13/18 21:58 Dose: 10 ml Sodium Chloride (Sodium Chloride Flush Syringe 10 Ml) 10 ml IV PRN PRN PRN Reason: LINE FLUSH Last Admin: 02/14/18 07:24 Dose: 10 ml Sodium Hypochlorite (Dakin's Full Strength) 1 applic TP Q12H PRN PRN Reason: Wound Care Vancomycin HCl (Vancomycin Pharmacy To Dose) 1 each IV PKCONSULT [facility]; Protocol Zolpidem Tartrate (Ambien) 10 mg PO QHS [facility] Last Admin: 02/13/18 21:47 Dose: 10 mg Review of Systems Constitutional: other (as per HPI) Physical Examination - Physical Exam Narrative exam: General appearance: Alert in NAD, conversant Eyes: anicteric sclerae, moist conjunctivae; PERRLA, EOMI. HENT: Atraumatic; oropharynx clear with moist mucous membranes and no mucosal ulcerations/no oral thrush; normal hard and soft palate. Normal external ears. Neck: Trachea midline; supple, no thyromegaly or lymphadenopathy Lungs: CTA, with normal respiratory effort and no intercostal retractions CV: S1,S2. RRR. Abdomen: Abdominal wound with dressing. R sided ostomy bag with liquid stools. L sided mucus fistula with bag. Extremities: No peripheral edema or extremity lymphadenopathy Skin: Normal temperature, turgor and texture; no rash, ulcers or subcutaneous nodules Psych: Appropriate affect, alert and oriented to person, place and time. Neuro: alert and oriented x 3. Moving all extremities Lines: No CVL / PICC - Constitutional Vitals: Vital Signs Temp Pulse Resp BP Pulse Ox 98.4 F 88 2 L 122/77 98 02/13/18 23:35 02/13/18 23:35 02/14/18 03:28 02/13/18 23:35 02/13/18 23:35 Temperature -Last 24 Hours Temperature 98.4 F Temperature 98.0 F Temperature 98.6 F Temperature 100.2 F Temperature 99.3 F Temperature 98.7 F Temperature 98.7 F Results - Labs CBC & Chem 7: 02/14/18 07:38 02/14/18 07:38 Labs: Abnormal lab results 02/13/18 02/13/18 02/13/18 Range/Units 08:29 16:54 21:37 BUN 5 L (9-20) mg/dL Creatinine 0.4 L (0.8-1.5) mg/dL POC Glucose 145 H (70-105) Calcium 7.9 L (8.4-10.2) mg/dL Vancomycin Trough 70.0 H (5.0-20.0) ug/mL 02/14/18 02/14/18 Range/Units 00:16 05:47 BUN (9-20) mg/dL Creatinine (0.8-1.5) mg/dL POC Glucose 146 H 110 H (70-105) Calcium (8.4-10.2) mg/dL Vancomycin Trough (5.0-20.0) ug/mL Assessment and Plan Assessment: 1) Infected surgical abdominal wound. Superficial wound culture grew Escherichia coli, Enterococcus faecium (R to PCN, sensitive to vanco). s/p excisional wound debridement on 02/13/18. 2) Acute fever due to above. 3) Acute leukopenia. ?related to Zosyn. 4) DM. 5) Crohn's disease with newly diagnosed colon cancer. -s/p exploratory laparotomy, ileocecectomy for small bowel obstruction on . -s/p exploratory laparotomy, small bowel resection, right hemicolectomy, creation of ileostomy and mucous fistula 01/28/18. 6) High vancomycin level. Probably not a real trough level. Recommendations: -Stop Zosyn and vancomycin. -Continue levofloxacin. -Start linezolid. -Re-check vancomycin level. -Can change to po levofloxacin and linezolid when ready for discharge to complete 14 days course. -Monitor CBC, BMP. -Will need to follow in ID clinic in [address] Castro. Thank you for your consultation, will follow up with you. Leah Crespo MD Infectious Diseases Specialist [facility] ([facility] [phone]
[2018-02-14 08:14] LABS: Hematocrit 30.2 % (35.5-45.6); Hemoglobin 9.8 gm/dl (11.8-15.2); Mean Corpuscular HGB Conc 32 % (32-34); Mean Corpuscular Hemoglobin 27 pg (28-32); Mean Corpuscular Volume 84 fl (84-94); Platelet Count 300 K/mm3 (140-440); Red Blood Count 3.59 M/mm3 (3.65-5.03); Red Cell Distribution Width 16.6 % (13.2-15.2)
[2018-02-14 08:32] LABS: BUN/Creatinine Ratio 12; Blood Urea Nitrogen 6 mg/dL (9-20); Calcium 8.3 mg/dL (8.4-10.2); Hemolysis Index 2
--- NOTE | 2018-02-14 08:59 | Progress Note ---
<ANTON HAYNES - Last Filed: 02/14/18 15:04> Assessment and Plan Assessment and plan: Wound infection of surgical wound Patient developed a fever overnight, continue IV antibiotics awaiting sensitivity of enterococcus and ecoli Status post Excisional debridement of infected abdominal wound Patient being followed by general surgeon Dr Hamilton Sepsis Secondary to above, Continue IVF, continue IV abx - vanco, zosyn dc'd, Zyvox and Levaquin initiated ID following Leukopenia Poss sec2 Zosyn which has been dc'd, will continue to monitor Hypokalemia Supplemented Hypomagnesemia Supplemented Malnutrition Nutrition consult Type 2 DM ADA diet, sliding scale insulin, Accu-Cheks before meals and at bedtime Crohns disease Will hold steroid therapy and Imuran per surgical team, supportive care, pain control Colon cancer DVT prophylaxis SCD to BLE while in bed Case management for DC planning History Interval history: Patient seen and examined. No new issues overnight. Labs and nursing notes reviewed Hospitalist Physical - Constitutional Vitals: Temp Pulse Resp BP Pulse Ox 98.1 F 88 20 136/88 99 02/14/18 07:13 02/14/18 07:13 02/14/18 07:13 02/14/18 07:13 02/14/18 07:13 General appearance: Present: no acute distress, well-nourished - EENT Eyes: Present: PERRL, EOM intact ENT: hearing intact, clear oral mucosa - Neck Neck: Present: supple, normal ROM - Respiratory Respiratory effort: normal Respiratory: bilateral: CTA - Cardiovascular Rhythm: regular Heart Sounds: Present: S1 & S2. Absent: rub, click - Extremities Extremities: no ischemia, No edema, normal temperature, normal color - Abdominal General gastrointestinal: soft, non-tender, non-distended, other (ostomies in place, midline bandage ) - Integumentary Integumentary: Present: clear, warm, dry - Psychiatric Psychiatric: appropriate mood/affect, intact judgment & insight, cooperative - Neurologic Neurologic: CNII-XII intact, moves all extremities Results - Labs CBC & Chem 7: 02/14/18 07:38 02/14/18 07:38 Labs: Laboratory Last Values WBC 3.7 K/mm3 (4.5-11.0) L 02/14/18 07:38 RBC 3.59 M/mm3 (3.65-5.03) L 02/14/18 07:38 Hgb 9.8 gm/dl (11.8-15.2) L 02/14/18 07:38 Hct 30.2 % (35.5-45.6) L 02/14/18 07:38 MCV 84 fl (84-94) 02/14/18 07:38 MCH 27 pg (28-32) L 02/14/18 07:38 MCHC 32 % (32-34) 02/14/18 07:38 RDW 16.6 % (13.2-15.2) H 02/14/18 07:38 Plt Count 300 K/mm3 (140-440) 02/14/18 07:38 Lymph % (Auto) 8.7 % (13.4-35.0) L 02/10/18 12:15 [place] % (Auto) Folding Machine Operator 02/12/18 09:34 Eos % (Auto) 0.8 % (0.0-4.3) 02/10/18 12:15 Baso % (Auto) 0.4 % (0.0-1.8) 02/10/18 12:15 Lymph # 0.7 K/mm3 (1.2-5.4) L 02/10/18 12:15 [place] # 1.2 K/mm3 (0.0-0.8) H 02/10/18 12:15 Eos # 0.1 K/mm3 (0.0-0.4) 02/10/18 12:15 Baso # 0.0 K/mm3 (0.0-0.1) 02/10/18 12:15 Add Manual Diff Complete 02/12/18 09:34 Total Counted 100 02/12/18 09:34 Seg Neutrophils % 74.2 % (40.0-70.0) H 02/10/18 12:15 Seg Neuts % (Manual) 81.0 % (40.0-70.0) H 02/12/18 09:34 Band Neutrophils % 0 % 02/12/18 09:34 Lymphocytes % (Manual) 1.0 % (13.4-35.0) L 02/12/18 09:34 Reactive Lymphs % (Man) 0 % 02/12/18 09:34 Monocytes % (Manual) 15.0 % (0.0-7.3) H 02/12/18 09:34 Eosinophils % (Manual) 2.0 % (0.0-4.3) 02/12/18 09:34 Basophils % (Manual) 1.0 % (0.0-1.8) 02/12/18 09:34 Metamyelocytes % 0 % 02/12/18 09:34 Myelocytes % 0 % 02/12/18 09:34 Promyelocytes % 0 % 02/12/18 09:34 Blast Cells % 0 % 02/12/18 09:34 Nucleated RBC % Not Reportable 02/12/18 09:34 Seg Neutrophils # 5.6 K/mm3 (1.8-7.7) 02/10/18 12:15 Seg Neutrophils # Man 3.6 K/mm3 (1.8-7.7) 02/12/18 09:34 Band Neutrophils # 0.0 K/mm3 02/12/18 09:34 Lymphocytes # (Manual) 0.0 K/mm3 (1.2-5.4) L 02/12/18 09:34 Abs React Lymphs (Man) 0.0 K/mm3 02/12/18 09:34 Monocytes # (Manual) 0.7 K/mm3 (0.0-0.8) 02/12/18 09:34 Eosinophils # (Manual) 0.1 K/mm3 (0.0-0.4) 02/12/18 09:34 Basophils # (Manual) 0.0 K/mm3 (0.0-0.1) 02/12/18 09:34 Metamyelocytes # 0.0 K/mm3 02/12/18 09:34 Myelocytes # 0.0 K/mm3 02/12/18 09:34 Promyelocytes # 0.0 K/mm3 02/12/18 09:34 Blast Cells # 0.0 K/mm3 02/12/18 09:34 WBC Morphology Not Reportable 02/12/18 09:34 Hypersegmented Neuts Not Reportable 02/12/18 09:34 Hyposegmented Neuts Not Reportable 02/12/18 09:34 Hypogranular Neuts Not Reportable 02/12/18 09:34 Smudge Cells Not Reportable 02/12/18 09:34 Toxic Granulation Not Reportable 02/12/18 09:34 Toxic Vacuolation Not Reportable 02/12/18 09:34 Dohle Bodies Not Reportable 02/12/18 09:34 Pelger-Huet Anomaly Not Reportable 02/12/18 09:34 Christina Rods Not Reportable 02/12/18 09:34 Platelet Estimate Appears normal 02/12/18 09:34 Clumped Platelets Few 02/12/18 09:34 Plt Clumps, EDTA Not Reportable 02/12/18 09:34 Large Platelets Not Reportable 02/12/18 09:34 Giant Platelets Not Reportable 02/12/18 09:34 Platelet Satelliting Not Reportable 02/12/18 09:34 Plt Morphology Comment Not Reportable 02/12/18 09:34 RBC Morphology Not Reportable 02/12/18 09:34 Dimorphic RBCs Not Reportable 02/12/18 09:34 Polychromasia Not Reportable 02/12/18 09:34 Hypochromasia Not Reportable 02/12/18 09:34 Poikilocytosis Not Reportable 02/12/18 09:34 Anisocytosis 1+ 02/12/18 09:34 Microcytosis Not Reportable 02/12/18 09:34 Macrocytosis Not Reportable 02/12/18 09:34 Spherocytes Not Reportable 02/12/18 09:34 Pappenheimer Bodies Not Reportable 02/12/18 09:34 Sickle Cells Not Reportable 02/12/18 09:34 Target Cells Not Reportable 02/12/18 09:34 Tear Drop Cells Not Reportable 02/12/18 09:34 Ovalocytes 1+ 02/12/18 09:34 Stomatocytes 1+ 02/12/18 09:34 Helmet Cells Not Reportable 02/12/18 09:34 [place] Bodies Not Reportable 02/12/18 09:34 [place] Rings Not Reportable 02/12/18 09:34 Ladarius Cells Not Reportable 02/12/18 09:34 Bite Cells Not Reportable 02/12/18 09:34 Crenated Cell Not Reportable 02/12/18 09:34 Elliptocytes 1+ 02/12/18 09:34 Acanthocytes (Spur) Not Reportable 02/12/18 09:34 Rouleaux Not Reportable 02/12/18 09:34 Hemoglobin C Crystals Not Reportable 02/12/18 09:34 Schistocytes Not Reportable 02/12/18 09:34 Malaria parasites Not Reportable 02/12/18 09:34 Krishna Bodies Not Reportable 02/12/18 09:34 Hem Pathologist Commnt No 02/12/18 09:34 PT 12.9 Sec. (12.2-14.9) 02/10/18 12:15 INR 0.93 (0.87-1.13) 02/10/18 12:15 VBG pH 7.418 (7.320-7.420) 02/10/18 12:15 Sodium 137 mmol/L (137-145) 02/14/18 07:38 Potassium 3.8 mmol/L (3.6-5.0) 02/14/18 07:38 Chloride 99.3 mmol/L (98-107) 02/14/18 07:38 Carbon Dioxide 25 mmol/L (22-30) 02/14/18 07:38 Anion Gap 17 mmol/L 02/14/18 07:38 BUN 6 mg/dL (9-20) L 02/14/18 07:38 Creatinine 0.5 mg/dL (0.8-1.5) L 02/14/18 07:38 Estimated GFR > 60 ml/min 02/14/18 07:38 BUN/Creatinine Ratio 12 % 02/14/18 07:38 Glucose 119 mg/dL (75-100) H 02/14/18 07:38 POC Glucose 110 (70-105) H 02/14/18 05:47 Lactic Acid 1.00 mmol/L (0.7-2.0) 02/10/18 15:23 Calcium 8.3 mg/dL (8.4-10.2) L 02/14/18 07:38 Phosphorus 3.70 mg/dL (2.5-4.5) 02/12/18 09:34 Magnesium 1.80 mg/dL (1.7-2.3) 02/13/18 08:29 Total Bilirubin 0.60 mg/dL (0.1-1.2) 02/10/18 12:15 AST 12 units/L (5-40) 02/10/18 12:15 ALT 6 units/L (7-56) L 02/10/18 12:15 Alkaline Phosphatase 125 units/L (35-129) 02/10/18 12:15 Total Protein 7.0 g/dL (6.3-8.2) D 02/10/18 12:15 Albumin 3.0 g/dL (3.9-5) L 02/10/18 12:15 Albumin/Globulin Ratio 0.8 % 02/10/18 12:15 Prealbumin 0.130 g/L (0.200-0.400) L 02/11/18 05:52 Urine Color Taylor (Yellow) 02/10/18 13:03 Urine Turbidity Clear (Clear) 02/10/18 13:03 Urine pH 5.0 (5.0-7.0) 02/10/18 13:03 Ur Specific [place] 1.025 (1.003-1.030) 02/10/18 13:03 Urine Protein 30 mg/dl mg/dL (Negative) 02/10/18 13:03 Urine Glucose (UA) Neg mg/dL (Negative) 02/10/18 13:03 Urine Ketones Tr mg/dL (Negative) 02/10/18 13:03 Urine Blood Neg (Negative) 02/10/18 13:03 Urine Nitrite Neg (Negative) 02/10/18 13:03 Urine Bilirubin Neg (Negative) 02/10/18 13:03 Urine Urobilinogen 2.0 mg/dL (<2.0) 02/10/18 13:03 Ur Leukocyte Esterase Neg (Negative) 02/10/18 13:03 Urine WBC (Auto) 3.0 /HPF (0.0-6.0) 02/10/18 13:03 Urine RBC (Auto) 1.0 /HPF (0.0-6.0) 02/10/18 13:03 Urine Bacteria (Auto) 1+ /HPF (Negative) 02/10/18 13:03 Urine Mucus 3+ /HPF 02/10/18 13:03 Vancomycin Trough 70.0 ug/mL (5.0-20.0) H 02/13/18 21:37 <FAUSTINO MOONEY - Last Filed: 02/17/18 17:12> Assessment and Plan Assessment and plan: I saw and evaluated the patient. I agree with the findings and the plan of care as documented in the Nurse Practitioner's~note, with the following corrections and additions. Patient with Sepsis. Continue current management. Hospitalist Physical - Constitutional Vitals: Temp Pulse Resp BP Pulse Ox 97.9 F 97 H 18 116/76 98 02/15/18 15:45 02/15/18 15:45 02/15/18 15:45 02/15/18 15:45 02/15/18 15:45 Results - Labs CBC & Chem 7: 02/15/18 04:17 02/15/18 04:17 Labs: Laboratory Last Values WBC 4.4 K/mm3 (4.5-11.0) L 02/15/18 04:17 RBC 3.37 M/mm3 (3.65-5.03) L 02/15/18 04:17 Hgb 9.3 gm/dl (11.8-15.2) L 02/15/18 04:17 Hct 28.0 % (35.5-45.6) L 02/15/18 04:17 MCV 83 fl (84-94) L 02/15/18 04:17 MCH 28 pg (28-32) 02/15/18 04:17 MCHC 33 % (32-34) 02/15/18 04:17 RDW 16.3 % (13.2-15.2) H 02/15/18 04:17 Plt Count 262 K/mm3 (140-440) 02/15/18 04:17 Lymph % (Auto) 8.7 % (13.4-35.0) L 02/10/18 12:15 [place] % (Auto) Folding Machine Operator 02/15/18 04:17 Eos % (Auto) 0.8 % (0.0-4.3) 02/10/18 12:15 Baso % (Auto) 0.4 % (0.0-1.8) 02/10/18 12:15 Lymph # 0.7 K/mm3 (1.2-5.4) L 02/10/18 12:15 [place] # 1.2 K/mm3 (0.0-0.8) H 02/10/18 12:15 Eos # 0.1 K/mm3 (0.0-0.4) 02/10/18 12:15 Baso # 0.0 K/mm3 (0.0-0.1) 02/10/18 12:15 Add Manual Diff Complete 02/15/18 04:17 Total Counted 100 02/15/18 04:17 Seg Neutrophils % 74.2 % (40.0-70.0) H 02/10/18 12:15 Seg Neuts % (Manual) 83.0 % (40.0-70.0) H 02/15/18 04:17 Band Neutrophils % 0 % 02/15/18 04:17 Lymphocytes % (Manual) 8.0 % (13.4-35.0) L 02/15/18 04:17 Reactive Lymphs % (Man) 0 % 02/15/18 04:17 Monocytes % (Manual) 8.0 % (0.0-7.3) H 02/15/18 04:17 Eosinophils % (Manual) 1.0 % (0.0-4.3) 02/15/18 04:17 Basophils % (Manual) 0 % (0.0-1.8) 02/15/18 04:17 Metamyelocytes % 0 % 02/15/18 04:17 Myelocytes % 0 % 02/15/18 04:17 Promyelocytes % 0 % 02/15/18 04:17 Blast Cells % 0 % 02/15/18 04:17 Nucleated RBC % Not Reportable 02/15/18 04:17 Seg Neutrophils # 5.6 K/mm3 (1.8-7.7) 02/10/18 12:15 Seg Neutrophils # Man 3.7 K/mm3 (1.8-7.7) 02/15/18 04:17 Band Neutrophils # 0.0 K/mm3 02/15/18 04:17 Lymphocytes # (Manual) 0.4 K/mm3 (1.2-5.4) L 02/15/18 04:17 Abs React Lymphs (Man) 0.0 K/mm3 02/15/18 04:17 Monocytes # (Manual) 0.4 K/mm3 (0.0-0.8) 02/15/18 04:17 Eosinophils # (Manual) 0.0 K/mm3 (0.0-0.4) 02/15/18 04:17 Basophils # (Manual) 0.0 K/mm3 (0.0-0.1) 02/15/18 04:17 Metamyelocytes # 0.0 K/mm3 02/15/18 04:17 Myelocytes # 0.0 K/mm3 02/15/18 04:17 Promyelocytes # 0.0 K/mm3 02/15/18 04:17 Blast Cells # 0.0 K/mm3 02/15/18 04:17 WBC Morphology Not Reportable 02/15/18 04:17 Hypersegmented Neuts Not Reportable 02/15/18 04:17 Hyposegmented Neuts Not Reportable 02/15/18 04:17 Hypogranular Neuts Not Reportable 02/15/18 04:17 Smudge Cells Not Reportable 02/15/18 04:17 Toxic Granulation Not Reportable 02/15/18 04:17 Toxic Vacuolation Not Reportable 02/15/18 04:17 Dohle Bodies Not Reportable 02/15/18 04:17 Pelger-Huet Anomaly Not Reportable 02/15/18 04:17 Christina Rods Not Reportable 02/15/18 04:17 Platelet Estimate Consistent w auto 02/15/18 04:17 Clumped Platelets Not Reportable 02/15/18 04:17 Plt Clumps, EDTA Not Reportable 02/15/18 04:17 Large Platelets Not Reportable 02/15/18 04:17 Giant Platelets Not Reportable 02/15/18 04:17 Platelet Satelliting Not Reportable 02/15/18 04:17 Plt Morphology Comment Not Reportable 02/15/18 04:17 RBC Morphology Not Reportable 02/15/18 04:17 Dimorphic RBCs Not Reportable 02/15/18 04:17 Polychromasia Not Reportable 02/15/18 04:17 Hypochromasia 1+ 02/15/18 04:17 Poikilocytosis Not Reportable 02/15/18 04:17 Anisocytosis 1+ 02/15/18 04:17 Microcytosis 1+ 02/15/18 04:17 Macrocytosis Not Reportable 02/15/18 04:17 Spherocytes Not Reportable 02/15/18 04:17 Pappenheimer Bodies Not Reportable 02/15/18 04:17 Sickle Cells Not Reportable 02/15/18 04:17 Target Cells Not Reportable 02/15/18 04:17 Tear Drop Cells Not Reportable 02/15/18 04:17 Ovalocytes Not Reportable 02/15/18 04:17 Stomatocytes 1+ 02/12/18 09:34 Helmet Cells Not Reportable 02/15/18 04:17 [place] Bodies Not Reportable 02/15/18 04:17 [place] Rings Not Reportable 02/15/18 04:17 [place] Cells Not Reportable 02/15/18 04:17 Bite Cells Not Reportable 02/15/18 04:17 Crenated Cell Not Reportable 02/15/18 04:17 Elliptocytes Not Reportable 02/15/18 04:17 Acanthocytes (Spur) Not Reportable 02/15/18 04:17 Rouleaux Not Reportable 02/15/18 04:17 Hemoglobin C Crystals Not Reportable 02/15/18 04:17 Schistocytes Not Reportable 02/15/18 04:17 Malaria parasites Not Reportable 02/15/18 04:17 Krishna Bodies Not Reportable 02/15/18 04:17 Hem Pathologist Commnt No 02/15/18 04:17 PT 12.9 Sec. (12.2-14.9) 02/10/18 12:15 INR 0.93 (0.87-1.13) 02/10/18 12:15 VBG pH 7.418 (7.320-7.420) 02/10/18 12:15 Sodium 140 mmol/L (137-145) 02/15/18 04:17 Potassium 3.2 mmol/L (3.6-5.0) L 02/15/18 04:17 Chloride 103.1 mmol/L (98-107) 02/15/18 04:17 Carbon Dioxide 25 mmol/L (22-30) 02/15/18 04:17 Anion Gap 15 mmol/L 02/15/18 04:17 BUN 7 mg/dL (9-20) L 02/15/18 04:17 Creatinine 0.7 mg/dL (0.8-1.5) L 02/15/18 04:17 Estimated GFR > 60 ml/min 02/15/18 04:17 BUN/Creatinine Ratio 10 % 02/15/18 04:17 Glucose 84 mg/dL (75-100) 02/15/18 04:17 POC Glucose 197 (70-105) H 02/15/18 16:46 Lactic Acid 1.00 mmol/L (0.7-2.0) 02/10/18 15:23 Calcium 8.3 mg/dL (8.4-10.2) L 02/15/18 04:17 Phosphorus 3.70 mg/dL (2.5-4.5) 02/12/18 09:34 Magnesium 1.80 mg/dL (1.7-2.3) 02/13/18 08:29 Total Bilirubin 0.60 mg/dL (0.1-1.2) 02/10/18 12:15 AST 12 units/L (5-40) 02/10/18 12:15 ALT 6 units/L (7-56) L 02/10/18 12:15 Alkaline Phosphatase 125 units/L (35-129) 02/10/18 12:15 Total Protein 7.0 g/dL (6.3-8.2) D 02/10/18 12:15 Albumin 3.0 g/dL (3.9-5) L 02/10/18 12:15 Albumin/Globulin Ratio 0.8 % 02/10/18 12:15 Prealbumin 0.130 g/L (0.200-0.400) L 02/11/18 05:52 Urine Color [place] (Yellow) 02/10/18 13:03 Urine Turbidity Clear (Clear) 02/10/18 13:03 Urine pH 5.0 (5.0-7.0) 02/10/18 13:03 Ur Specific [place] 1.025 (1.003-1.030) 02/10/18 13:03 Urine Protein 30 mg/dl mg/dL (Negative) 02/10/18 13:03 Urine Glucose (UA) Neg mg/dL (Negative) 02/10/18 13:03 Urine Ketones Tr mg/dL (Negative) 02/10/18 13:03 Urine Blood Neg (Negative) 02/10/18 13:03 Urine Nitrite Neg (Negative) 02/10/18 13:03 Urine Bilirubin Neg (Negative) 02/10/18 13:03 Urine Urobilinogen 2.0 mg/dL (<2.0) 02/10/18 13:03 Ur Leukocyte Esterase Neg (Negative) 02/10/18 13:03 Urine WBC (Auto) 3.0 /HPF (0.0-6.0) 02/10/18 13:03 Urine RBC (Auto) 1.0 /HPF (0.0-6.0) 02/10/18 13:03 Urine Bacteria (Auto) 1+ /HPF (Negative) 02/10/18 13:03 Urine Mucus 3+ /HPF 02/10/18 13:03 Vancomycin Trough 29.5 ug/mL (5.0-20.0) H 02/14/18 11:08
[2018-02-14] MEDS: LEVAQUIN 500MG/100ML 500 MG/100 ML BAG IV SCH (10:11)
[2018-02-14] MEDS: PROTONIX PO SCH (10:13)
[2018-02-14] MEDS: ZESTRIL PO SCH (10:14)
[2018-02-14] MEDS: SODIUM CHLORIDE FLUSH SYRINGE 10 ML IV SCH ×2 (10:15→23:21)
[2018-02-14] MEDS: ZYVOX 600MG/300ML 600 MG/300 ML BAG IV SCH ×2 (11:40→23:21)
[2018-02-14] MEDS: DILAUDID IV PRN (14:50)
--- NOTE | 2018-02-14 16:37 | Progress Note ---
Assessment and Plan 48 yo M s/p Excisional debridement of infected abdominal wound POD 1 Plan: 1. wound vac placed by wound care nurse. Continue NPWT. Pt will have family member bring in home vac tomorrow. 2. continue abx per ID 3. case management submitted info for zyvox assistance program 4. ostomy care 5. PRN PO pain meds 6. OOB/ambulate 7. Diabetic diet with nutritional supplements 8. Strict glucose control Subjective Date of service: 02/14/18 Narrative: Pt seen and examined. Seems to be in better spirits. He states he had ostomy teaching today and feels comfortable changing and taking care of his ostomy appliance. His pain is controlled. He is ambulating. He is eating. He has no n/ v. He has been afebrile for 24 hours. Objective Vital Signs - 12hr 02/14/18 02/14/18 02/14/18 07:13 10:14 11:30 Temperature 98.1 F Pulse Rate 86 88 Respiratory 20 Rate Blood Pressure 136/88 Blood Pressure 136/88 [Left] O2 Sat by Pulse 99 98 Oximetry 02/14/18 15:18 Temperature 98.0 F Pulse Rate 87 Respiratory 18 Rate Blood Pressure Blood Pressure 112/76 [Left] O2 Sat by Pulse 99 Oximetry - General physical appearance Narrative Exam: Gen: AAOx3. NAD CV: S1, s2+ resp: even and unlabored Abd: soft, ostomy appliances and wound vac in place Ext; no c/c/e - Labs 02/14/18 07:38 02/14/18 07:38 Diabetes panel 02/14/18 Range/Units 07:38 Sodium 137 (137-145) mmol/L Potassium 3.8 (3.6-5.0) mmol/L Chloride 99.3 (98-107) mmol/L Carbon Dioxide 25 (22-30) mmol/L BUN 6 L (9-20) mg/dL Creatinine 0.5 L (0.8-1.5) mg/dL Glucose 119 H (75-100) mg/dL Calcium 8.3 L (8.4-10.2) mg/dL Calcium panel 02/14/18 Range/Units 07:38 Calcium 8.3 L (8.4-10.2) mg/dL Pituitary panel 02/14/18 Range/Units 07:38 Sodium 137 (137-145) mmol/L Potassium 3.8 (3.6-5.0) mmol/L Chloride 99.3 (98-107) mmol/L Carbon Dioxide 25 (22-30) mmol/L BUN 6 L (9-20) mg/dL Creatinine 0.5 L (0.8-1.5) mg/dL Glucose 119 H (75-100) mg/dL Calcium 8.3 L (8.4-10.2) mg/dL Adrenal panel 02/14/18 Range/Units 07:38 Sodium 137 (137-145) mmol/L Potassium 3.8 (3.6-5.0) mmol/L Chloride 99.3 (98-107) mmol/L Carbon Dioxide 25 (22-30) mmol/L BUN 6 L (9-20) mg/dL Creatinine 0.5 L (0.8-1.5) mg/dL Glucose 119 H (75-100) mg/dL Calcium 8.3 L (8.4-10.2) mg/dL
[2018-02-14] MEDS: AMBIEN PO SCH (23:21)
[2018-02-15] MEDS: DILAUDID IV PRN ×2 (02:13→10:39)
[2018-02-15] MEDS: HumaLOG SUB-Q SCH ×3 (02:14→13:52)
[2018-02-15 05:16] LABS: Hemoglobin 9.3 gm/dl (11.8-15.2); Mean Corpuscular HGB Conc 33 % (32-34); Mean Corpuscular Hemoglobin 28 pg (28-32); Mean Corpuscular Volume 83 fl (84-94); Platelet Count 262 K/mm3 (140-440); Red Blood Count 3.37 M/mm3 (3.65-5.03); Red Cell Distribution Width 16.3 % (13.2-15.2)
[2018-02-15] MEDS: PERCOCET 5/325 PO PRN (05:44)
[2018-02-15 05:47] LABS: BUN/Creatinine Ratio 10; Blood Urea Nitrogen 7 mg/dL (9-20); Calcium 8.3 mg/dL (8.4-10.2); Hemolysis Index 3
[2018-02-15 09:44] LABS: Anisocytosis 1+; Basophils % (Manual) 0 % (0.0-1.8); Hypochromasia 1+; Total Cells Counted 100
[2018-02-15 09:45] LABS: Platelet Estimate Consistent w Auto
[2018-02-15] MEDS: ZESTRIL PO SCH (09:48)
[2018-02-15] MEDS: PROTONIX PO SCH (09:48)
[2018-02-15] MEDS: LEVAQUIN 500MG/100ML 500 MG/100 ML BAG IV SCH (09:49)
[2018-02-15] MEDS: ZYVOX 600MG/300ML 600 MG/300 ML BAG IV SCH (09:49)
[2018-02-15] MEDS: SODIUM CHLORIDE FLUSH SYRINGE 10 ML IV SCH (09:50)
--- NOTE | 2018-02-15 10:06 | Progress Note ---
Assessment and Plan Assessment: 1) Infected surgical abdominal wound. Superficial wound culture grew Escherichia coli, Enterococcus faecium (R to PCN, sensitive to vanco). s/p excisional wound debridement on 02/13/18. 2) Acute fever due to above. Resolved. 3) Acute leukopenia. ?related to Zosyn. Improved. 4) DM. 5) Crohn's disease with newly diagnosed colon cancer. -s/p exploratory laparotomy, ileocecectomy for small bowel obstruction on . -s/p exploratory laparotomy, small bowel resection, right hemicolectomy, creation of ileostomy and mucous fistula 01/28/18. 6) High vancomycin level. Re-checked level still supra-therapeutic. Vancomycin d /c 02/14/18. Recommendations: -Can change to Levofloxacin 750 mg po q24h and linezolid 600 mg PO q12h when ready for discharge to complete 14 days course. -Check CBC, BMP weekly for 2 weeks. -Will need to follow in ID clinic in [address] Castro. Leah Crespo MD Infectious Diseases Specialist [facility], [facility] [phone] Subjective Date of service: 02/15/18 Interval history: Afebrile. Wound vac placed yesterday, says makes abdominal pain worse. Microbiology: Blood cultures: 02/10 NGTD Urine cultures: 02/10 skin gabriela Wound cultures: 02/10 E coli and Enterococcus faecium. Current Antimicrobials: Levofloxacin 02/13- Linezolid 02/14- Prior antimicrobials Zosyn 02/11-02/14/18 IV vancomycin 02/11-02/14 Objective - Exam Narrative Exam: General appearance: Alert in NAD, conversant. Eyes: anicteric sclerae, moist conjunctivae; PERRLA, EOMI. HENT: Atraumatic; oropharynx clear with moist mucous membranes and no mucosal ulcerations/no oral thrush; normal hard and soft palate. Normal external ears. Neck: Trachea midline; supple, no thyromegaly or lymphadenopathy Lungs: CTA, with normal respiratory effort and no intercostal retractions CV: S1,S2. RRR. Abdomen: Open abdominal wound with wound vac in place. R sided ostomy bag with liquid stools. L sided mucus fistula with bag. Extremities: No peripheral edema or extremity lymphadenopathy Skin: Normal temperature, turgor and texture; no rash, ulcers or subcutaneous nodules Psych: Appropriate affect, alert and oriented to person, place and time. Neuro: alert and oriented x 3. Moving all extremities Lines: No CVL / PICC - Constitutional Vitals: Vital Signs Temp Pulse Resp BP Pulse Ox 98.3 F 77 20 123/72 97 02/15/18 07:42 02/15/18 07:42 02/15/18 07:42 02/15/18 07:42 02/15/18 07:42 Temperature -Last 24 Hours Temperature 98.3 F Temperature 97.9 F Temperature 98.0 F - Labs CBC & Chem 7: 02/15/18 04:17 02/15/18 04:17 Labs: Abnormal lab results 02/14/18 02/14/18 02/14/18 Range/Units 11:08 11:31 16:47 WBC (4.5-11.0) K/mm3 RBC (3.65-5.03) M/mm3 Hgb (11.8-15.2) gm/dl Hct (35.5-45.6) % MCV (84-94) fl RDW (13.2-15.2) % Seg Neuts % (Manual) (40.0-70.0) % Lymphocytes % (Manual) (13.4-35.0) % Monocytes % (Manual) (0.0-7.3) % Lymphocytes # (Manual) (1.2-5.4) K/mm3 Potassium (3.6-5.0) mmol/L BUN (9-20) mg/dL Creatinine (0.8-1.5) mg/dL POC Glucose 202 H 173 H (70-105) Calcium (8.4-10.2) mg/dL Vancomycin Trough 29.5 H (5.0-20.0) ug/mL 02/15/18 02/15/18 02/15/18 Range/Units 00:14 04:17 04:17 WBC 4.4 L (4.5-11.0) K/mm3 RBC 3.37 L (3.65-5.03) M/mm3 Hgb 9.3 L (11.8-15.2) gm/dl Hct 28.0 L (35.5-45.6) % MCV 83 L (84-94) fl RDW 16.3 H (13.2-15.2) % Seg Neuts % (Manual) 83.0 H (40.0-70.0) % Lymphocytes % (Manual) 8.0 L (13.4-35.0) % Monocytes % (Manual) 8.0 H (0.0-7.3) % Lymphocytes # (Manual) 0.4 L (1.2-5.4) K/mm3 Potassium 3.2 L (3.6-5.0) mmol/L BUN 7 L (9-20) mg/dL Creatinine 0.7 L (0.8-1.5) mg/dL POC Glucose 152 H (70-105) Calcium 8.3 L (8.4-10.2) mg/dL Vancomycin Trough (5.0-20.0) ug/mL
--- NOTE | 2018-02-15 10:14 | Progress Note ---
Assessment and Plan Assessment and plan: Wound infection of surgical wound Patient developed a fever overnight, continue IV antibiotics awaiting sensitivity of enterococcus and ecoli Status post Excisional debridement of infected abdominal wound Patient being followed by general surgeon Dr Hamilton Sepsis Secondary to above, Continue IVF, continue IV abx - vanco, zosyn dc'd, Zyvox and Levaquin initiated ID following Leukopenia Poss sec2 Zosyn which has been dc'd, will continue to monitor Hypokalemia Supplemented Hypomagnesemia Supplemented Malnutrition Nutrition consult Type 2 DM ADA diet, sliding scale insulin, Accu-Cheks before meals and at bedtime Crohns disease Will hold steroid therapy and Imuran per surgical team, supportive care, pain control Colon cancer DVT prophylaxis SCD to BLE while in bed Case management for DC planning Hospitalist Physical - Constitutional Vitals: Temp Pulse Resp BP Pulse Ox 98.3 F 77 20 123/72 97 02/15/18 07:42 02/15/18 07:42 02/15/18 07:42 02/15/18 07:42 02/15/18 07:42 General appearance: Present: no acute distress, well-nourished Results - Labs CBC & Chem 7: 02/15/18 04:17 02/15/18 04:17 Labs: Laboratory Last Values WBC 4.4 K/mm3 (4.5-11.0) L 02/15/18 04:17 RBC 3.37 M/mm3 (3.65-5.03) L 02/15/18 04:17 Hgb 9.3 gm/dl (11.8-15.2) L 02/15/18 04:17 Hct 28.0 % (35.5-45.6) L 02/15/18 04:17 MCV 83 fl (84-94) L 02/15/18 04:17 MCH 28 pg (28-32) 02/15/18 04:17 MCHC 33 % (32-34) 02/15/18 04:17 RDW 16.3 % (13.2-15.2) H 02/15/18 04:17 Plt Count 262 K/mm3 (140-440) 02/15/18 04:17 Lymph % (Auto) 8.7 % (13.4-35.0) L 02/10/18 12:15 [place] % (Auto) Maintenance Planner 02/15/18 04:17 Eos % (Auto) 0.8 % (0.0-4.3) 02/10/18 12:15 Baso % (Auto) 0.4 % (0.0-1.8) 02/10/18 12:15 Lymph # 0.7 K/mm3 (1.2-5.4) L 02/10/18 12:15 [place] # 1.2 K/mm3 (0.0-0.8) H 02/10/18 12:15 Eos # 0.1 K/mm3 (0.0-0.4) 02/10/18 12:15 Baso # 0.0 K/mm3 (0.0-0.1) 02/10/18 12:15 Add Manual Diff Complete 02/15/18 04:17 Total Counted 100 02/15/18 04:17 Seg Neutrophils % 74.2 % (40.0-70.0) H 02/10/18 12:15 Seg Neuts % (Manual) 83.0 % (40.0-70.0) H 02/15/18 04:17 Band Neutrophils % 0 % 02/15/18 04:17 Lymphocytes % (Manual) 8.0 % (13.4-35.0) L 02/15/18 04:17 Reactive Lymphs % (Man) 0 % 02/15/18 04:17 Monocytes % (Manual) 8.0 % (0.0-7.3) H 02/15/18 04:17 Eosinophils % (Manual) 1.0 % (0.0-4.3) 02/15/18 04:17 Basophils % (Manual) 0 % (0.0-1.8) 02/15/18 04:17 Metamyelocytes % 0 % 02/15/18 04:17 Myelocytes % 0 % 02/15/18 04:17 Promyelocytes % 0 % 02/15/18 04:17 Blast Cells % 0 % 02/15/18 04:17 Nucleated RBC % Not Reportable 02/15/18 04:17 Seg Neutrophils # 5.6 K/mm3 (1.8-7.7) 02/10/18 12:15 Seg Neutrophils # Man 3.7 K/mm3 (1.8-7.7) 02/15/18 04:17 Band Neutrophils # 0.0 K/mm3 02/15/18 04:17 Lymphocytes # (Manual) 0.4 K/mm3 (1.2-5.4) L 02/15/18 04:17 Abs React Lymphs (Man) 0.0 K/mm3 02/15/18 04:17 Monocytes # (Manual) 0.4 K/mm3 (0.0-0.8) 02/15/18 04:17 Eosinophils # (Manual) 0.0 K/mm3 (0.0-0.4) 02/15/18 04:17 Basophils # (Manual) 0.0 K/mm3 (0.0-0.1) 02/15/18 04:17 Metamyelocytes # 0.0 K/mm3 02/15/18 04:17 Myelocytes # 0.0 K/mm3 02/15/18 04:17 Promyelocytes # 0.0 K/mm3 02/15/18 04:17 Blast Cells # 0.0 K/mm3 02/15/18 04:17 WBC Morphology Not Reportable 02/15/18 04:17 Hypersegmented Neuts Not Reportable 02/15/18 04:17 Hyposegmented Neuts Not Reportable 02/15/18 04:17 Hypogranular Neuts Not Reportable 02/15/18 04:17 Smudge Cells Not Reportable 02/15/18 04:17 Toxic Granulation Not Reportable 02/15/18 04:17 Toxic Vacuolation Not Reportable 02/15/18 04:17 Dohle Bodies Not Reportable 02/15/18 04:17 Pelger-Huet Anomaly Not Reportable 02/15/18 04:17 Christina Rods Not Reportable 02/15/18 04:17 Platelet Estimate Consistent w auto 02/15/18 04:17 Clumped Platelets Not Reportable 02/15/18 04:17 Plt Clumps, EDTA Not Reportable 02/15/18 04:17 Large Platelets Not Reportable 02/15/18 04:17 Giant Platelets Not Reportable 02/15/18 04:17 Platelet Satelliting Not Reportable 02/15/18 04:17 Plt Morphology Comment Not Reportable 02/15/18 04:17 RBC Morphology Not Reportable 02/15/18 04:17 Dimorphic RBCs Not Reportable 02/15/18 04:17 Polychromasia Not Reportable 02/15/18 04:17 Hypochromasia 1+ 02/15/18 04:17 Poikilocytosis Not Reportable 02/15/18 04:17 Anisocytosis 1+ 02/15/18 04:17 Microcytosis 1+ 02/15/18 04:17 Macrocytosis Not Reportable 02/15/18 04:17 Spherocytes Not Reportable 02/15/18 04:17 Pappenheimer Bodies Not Reportable 02/15/18 04:17 Sickle Cells Not Reportable 02/15/18 04:17 Target Cells Not Reportable 02/15/18 04:17 Tear Drop Cells Not Reportable 02/15/18 04:17 Ovalocytes Not Reportable 02/15/18 04:17 Stomatocytes 1+ 02/12/18 09:34 Helmet Cells Not Reportable 02/15/18 04:17 Cleary-C[place]per Bodies Not Reportable 02/15/18 04:17 [place] Rings Not Reportable 02/15/18 04:17 [place] Cells Not Reportable 02/15/18 04:17 Bite Cells Not Reportable 02/15/18 04:17 Crenated Cell Not Reportable 02/15/18 04:17 Elliptocytes Not Reportable 02/15/18 04:17 Acanthocytes (Spur) Not Reportable 02/15/18 04:17 Rouleaux Not Reportable 02/15/18 04:17 Hemoglobin C Crystals Not Reportable 02/15/18 04:17 Schistocytes Not Reportable 02/15/18 04:17 Malaria parasites Not Reportable 02/15/18 04:17 Krishna Bodies Not Reportable 02/15/18 04:17 Hem Pathologist Commnt No 02/15/18 04:17 PT 12.9 Sec. (12.2-14.9) 02/10/18 12:15 INR 0.93 (0.87-1.13) 02/10/18 12:15 VBG pH 7.418 (7.320-7.420) 02/10/18 12:15 Sodium 140 mmol/L (137-145) 02/15/18 04:17 Potassium 3.2 mmol/L (3.6-5.0) L 02/15/18 04:17 Chloride 103.1 mmol/L (98-107) 02/15/18 04:17 Carbon Dioxide 25 mmol/L (22-30) 02/15/18 04:17 Anion Gap 15 mmol/L 02/15/18 04:17 BUN 7 mg/dL (9-20) L 02/15/18 04:17 Creatinine 0.7 mg/dL (0.8-1.5) L 02/15/18 04:17 Estimated GFR > 60 ml/min 02/15/18 04:17 BUN/Creatinine Ratio 10 % 02/15/18 04:17 Glucose 84 mg/dL (75-100) 02/15/18 04:17 POC Glucose 78 (70-105) 02/15/18 06:04 Lactic Acid 1.00 mmol/L (0.7-2.0) 02/10/18 15:23 Calcium 8.3 mg/dL (8.4-10.2) L 02/15/18 04:17 Phosphorus 3.70 mg/dL (2.5-4.5) 02/12/18 09:34 Magnesium 1.80 mg/dL (1.7-2.3) 02/13/18 08:29 Total Bilirubin 0.60 mg/dL (0.1-1.2) 02/10/18 12:15 AST 12 units/L (5-40) 02/10/18 12:15 ALT 6 units/L (7-56) L 02/10/18 12:15 Alkaline Phosphatase 125 units/L (35-129) 02/10/18 12:15 Total Protein 7.0 g/dL (6.3-8.2) D 02/10/18 12:15 Albumin 3.0 g/dL (3.9-5) L 02/10/18 12:15 Albumin/Globulin Ratio 0.8 % 02/10/18 12:15 Prealbumin 0.130 g/L (0.200-0.400) L 02/11/18 05:52 Urine Color [place] (Yellow) 02/10/18 13:03 Urine Turbidity Clear (Clear) 02/10/18 13:03 Urine pH 5.0 (5.0-7.0) 02/10/18 13:03 Ur Specific [place] 1.025 (1.003-1.030) 02/10/18 13:03 Urine Protein 30 mg/dl mg/dL (Negative) 02/10/18 13:03 Urine Glucose (UA) Neg mg/dL (Negative) 02/10/18 13:03 Urine Ketones Tr mg/dL (Negative) 02/10/18 13:03 Urine Blood Neg (Negative) 02/10/18 13:03 Urine Nitrite Neg (Negative) 02/10/18 13:03 Urine Bilirubin Neg (Negative) 02/10/18 13:03 Urine Urobilinogen 2.0 mg/dL (<2.0) 02/10/18 13:03 Ur Leukocyte Esterase Neg (Negative) 02/10/18 13:03 Urine WBC (Auto) 3.0 /HPF (0.0-6.0) 02/10/18 13:03 Urine RBC (Auto) 1.0 /HPF (0.0-6.0) 02/10/18 13:03 Urine Bacteria (Auto) 1+ /HPF (Negative) 02/10/18 13:03 Urine Mucus 3+ /HPF 02/10/18 13:03 Vancomycin Trough 29.5 ug/mL (5.0-20.0) H 02/14/18 11:08
[2018-02-15] MEDS ORDERED: K-DUR PO ONE (11:00)
--- NOTE | 2018-02-15 13:17 | Progress Note ---
Assessment and Plan 48 yo M s/p Excisional debridement of infected abdominal wound POD 2 Plan: 1. Continue NPWT per wound care 2. continue abx per ID 3. case management submitted info for zyvox assistance program 4. ostomy care 5. PRN PO pain meds 6. OOB/ambulate 7. Diabetic diet with nutritional supplements 8. Strict glucose control 9. ok for dc from surgery standpoint once zyvox approved via assistance program. Patient to follow up in wound care clinic on Sunday02/18/18 for vac change. Appointment has been made. Thank you for this consultation, please call with questions or concerns. Subjective Date of service: 02/15/18 Narrative: Pt seen and examined. No complaints. States abdominal pain is better. Wound vac was switched to home VAC. No f/c, cp, sob. Tolerating diet, no n/v. Objective Vital Signs - 12hr 02/15/18 02/15/18 07:42 10:00 Temperature 98.3 F Pulse Rate 77 Respiratory 20 Rate Blood Pressure 123/72 O2 Sat by Pulse 97 97 Oximetry - General physical appearance Narrative Exam: Gen: AAOx3. NAD CV: S1, S2+ resp: even and unlabored Abd: soft, NT, ND. Ileostomy with soft green stool and air in bag. Mucus fistula with pink mucosa and nothing in bag. Midline wound vac in place, good seal and no leak. Ext: no c/c/e - Labs 02/15/18 04:17 02/15/18 04:17 Diabetes panel 02/15/18 Range/Units 04:17 Sodium 140 (137-145) mmol/L Potassium 3.2 L (3.6-5.0) mmol/L Chloride 103.1 (98-107) mmol/L Carbon Dioxide 25 (22-30) mmol/L BUN 7 L (9-20) mg/dL Creatinine 0.7 L (0.8-1.5) mg/dL Glucose 84 (75-100) mg/dL Calcium 8.3 L (8.4-10.2) mg/dL Calcium panel 02/15/18 Range/Units 04:17 Calcium 8.3 L (8.4-10.2) mg/dL Pituitary panel 02/15/18 Range/Units 04:17 Sodium 140 (137-145) mmol/L Potassium 3.2 L (3.6-5.0) mmol/L Chloride 103.1 (98-107) mmol/L Carbon Dioxide 25 (22-30) mmol/L BUN 7 L (9-20) mg/dL Creatinine 0.7 L (0.8-1.5) mg/dL Glucose 84 (75-100) mg/dL Calcium 8.3 L (8.4-10.2) mg/dL Adrenal panel 02/15/18 Range/Units 04:17 Sodium 140 (137-145) mmol/L Potassium 3.2 L (3.6-5.0) mmol/L Chloride 103.1 (98-107) mmol/L Carbon Dioxide 25 (22-30) mmol/L BUN 7 L (9-20) mg/dL Creatinine 0.7 L (0.8-1.5) mg/dL Glucose 84 (75-100) mg/dL Calcium 8.3 L (8.4-10.2) mg/dL
--- NOTE | 2018-02-15 14:19 | Discharge Summary ---
<ANTON HAYNES - Last Filed: 02/15/18 14:10> Providers - Providers Date of Admission: 02/10/18 16:35 Attending physician: FAUSTINO MOONEY 02/10/18 16:03 Consult to Wound/ET Nurse [CONS] Routine Reason For Exam: wound eval 02/11/18 08:49 Consult to Case Management [CONS] Routine Services Needed at Discharge: Other Notified:: cm Comment:: subacute rehab - patient cannot care for his wounds/other needs 02/11/18 13:26 Consult to Dietitian/Nutrition [CONS] Routine Physician Instructions: Reason For Exam: Reason for Consult: Malnutrition 02/13/18 16:01 Consult to Physician [CONS] Routine Comment: Consulting Provider: BRANDO HENLEY Physician Instructions: Reason For Exam: sepsis 02/15/18 10:11 Consult to Case Management [CONS] Routine Services Needed at Discharge: Other Notified:: cm Additional Physician Instructions: Antibiotics for discharge -Levofloxacin 750 mg po q24h and linezolid 600 mg PO q12h for 14 days course. -Check CBC, BMP (On Mondays) for 2 weeks. -Fax labs results to [phone]. For critical labs please call [phone]. -ID clinic in [address] Castro. Please call [phone] to make appointment. Leah GARY attending C [phone] Primary care physician: IRRIGATION SYSTEM INSTALLER Hospitalization Condition: Critical Disposition: DC-30 STILL A PATIENT Exam - Constitutional Vitals: Temp Pulse Resp BP Pulse Ox 98.3 F 77 20 123/72 97 02/15/18 07:42 02/15/18 07:42 02/15/18 07:42 02/15/18 07:42 02/15/18 10:00 Plan Follow up with: PRIMARY CARE, [Primary Care Provider] - 7 Days MICHAEL BOLAÑOS DO [Staff Physician] - 10 Days Prescriptions: Levofloxacin [Levaquin TAB] 500 mg PO Q24HR #11 tablet Linezolid [Zyvox] 600 mg PO BID #25 tablet oxyCODONE /ACETAMINOPHEN [Percocet 5/325 mg] 2 tab PO Q6H PRN #12 tablet PRN Reason: Pain, Moderate (4-6) <MICHAEL BOLAÑOS - Last Filed: 02/15/18 15:03> Providers - Providers Date of Admission: 02/10/18 16:35 Attending physician: FAUSTINO MOONEY 02/10/18 16:03 Consult to Wound/ET Nurse [CONS] Routine Reason For Exam: wound eval 02/11/18 08:49 Consult to Case Management [CONS] Routine Services Needed at Discharge: Other Notified:: cm Comment:: subacute rehab - patient cannot care for his wounds/other needs 02/11/18 13:26 Consult to Dietitian/Nutrition [CONS] Routine Physician Instructions: Reason For Exam: Reason for Consult: Malnutrition 02/13/18 16:01 Consult to Physician [CONS] Routine Comment: Consulting Provider: BRANDO HENLEY Physician Instructions: Reason For Exam: sepsis 02/15/18 10:11 Consult to Case Management [CONS] Routine Services Needed at Discharge: Other Notified:: cm Additional Physician Instructions: Antibiotics for discharge -Levofloxacin 750 mg po q24h and linezolid 600 mg PO q12h for 14 days course. -Check CBC, BMP (On Mondays) for 2 weeks. -Fax labs results to [phone]. For critical labs please call [phone]. -ID clinic in [address] Castro. Please call [phone] to make appointment. Leah GARY attending C [phone] Primary care physician: IRRIGATION SYSTEM INSTALLER Exam - Constitutional Vitals: Temp Pulse Resp BP Pulse Ox 98.3 F 77 20 123/72 97 02/15/18 07:42 02/15/18 07:42 02/15/18 07:42 02/15/18 07:42 02/15/18 10:00 Plan Activity: other (No heavy lifting >15 lbs until cleared by surgeon) Diet: diabetic, other (Continue protein supplements two to three times per day) Wound: other (continue ostomy care as directed by wound care nurse. Keep wound vac on at all times. Vac will be changed at your appointment with wound care clinic on Sunday02/18/18) Additional Instructions: Please call surgeon's office if you have any questions or concerns about wound care or ostomy care. Call if you have fevers>100.4. Follow up in wound care clinic on Sunday 02/18 <FAUSTINO MOONEY - Last Filed: 02/15/18 15:30> Providers - Providers Date of Admission: 02/10/18 16:35 Attending physician: FAUSTINO MOONEY 02/10/18 16:03 Consult to Wound/ET Nurse [CONS] Routine Reason For Exam: wound eval 02/11/18 08:49 Consult to Case Management [CONS] Routine Services Needed at Discharge: Other Notified:: cm Comment:: subacute rehab - patient cannot care for his wounds/other needs 02/11/18 13:26 Consult to Dietitian/Nutrition [CONS] Routine Physician Instructions: Reason For Exam: Reason for Consult: Malnutrition 02/13/18 16:01 Consult to Physician [CONS] Routine Comment: Consulting Provider: BRANOD HENLEY Physician Instructions: Reason For Exam: sepsis 02/15/18 10:11 Consult to Case Management [CONS] Routine Services Needed at Discharge: Other Notified:: cm Additional Physician Instructions: Antibiotics for discharge -Levofloxacin 750 mg po q24h and linezolid 600 mg PO q12h for 14 days course. -Check CBC, BMP (On Mondays) for 2 weeks. -Fax labs results to [phone]. For critical labs please call [phone]. -ID clinic in [address] Castro. Please call [phone] to make appointment. Leah GARY attending C [phone] Primary care physician: IRRIGATION SYSTEM INSTALLER Exam - Constitutional Vitals: Temp Pulse Resp BP Pulse Ox 98.3 F 77 20 123/72 97 02/15/18 07:42 02/15/18 07:42 02/15/18 07:42 02/15/18 07:42 02/15/18 10:00 Plan Additional Instructions: 1.Follow up with Pain management Physician in 3-5 days.
[2018-02-15 16:36] VITALS: BP 116/76
[2018-02-15] MEDS ORDERED: ZYVOX PO SCH (22:00)
[2018-02-16] MEDS ORDERED: LEVAQUIN PO SCH (10:00)
== END 2018-02-15 18:14 | disposition home or self-care (01) | DRG 856 ==
LOC: ED 11:49 → 3A 16:35
PROVIDERS: ADMIT Internal Medicine; ATTEND Internal Medicine
PROC: 0JB80ZZ Excision of Abdomen Subcutaneous Tissue and Fascia, Open Approach (ICD-10-PCS; principal; 2018-02-13)
DX: T81.4XXA Infection following a procedure, initial encounter (principal); A41.9 Sepsis, unspecified organism; L03.311 Cellulitis of abdominal wall; K50.90 Crohn's disease, unspecified, without complications; E46 Unspecified protein-calorie malnutrition; E11.9 Type 2 diabetes mellitus without complications; I10 Essential (primary) hypertension; E83.42 Hypomagnesemia; Y84.8 Other medical procedures as the cause of abnormal reaction of the patient, or of later complication, without mention of misadventure at the time of the procedure; Z68.23 Body mass index [BMI] 23.0-23.9, adult; Z79.899 Other long term (current) drug therapy; Z82.49 Family history of ischemic heart disease and other diseases of the circulatory system; Z90.49 Acquired absence of other specified parts of digestive tract; Z85.038 Personal history of other malignant neoplasm of large intestine; Z87.891 Personal history of nicotine dependence; Z72.89 Other problems related to lifestyle; Y92.89 Other specified places as the place of occurrence of the external cause
CPT/HCPCS: 36415; 71045; 80048; 80053; 80202; 81001; 82140; 82805; 82962; 83735; 84100; 84134; 85007; 85025; 85027; 85610; 87040; 87076; 87086; 87116; 87186; 93005; 93010; 96361; 96374; 96375; A4217; A6260; J1100; J1170; J1815; J1956; J2020; J2250; J2405; J2543; J2704; J3370; J3475; J3480; J7030; J7040; J7050; J7120

== ENCOUNTER 2018-02-15 20:08 | Emergency (ER) | payer OTHER ==
[2018-02-15 20:22] VITALS: BP 114/77
--- NOTE | 2018-02-15 21:30 | Emergency Department Report ---
ED General Adult HPI - General Chief complaint: Medical Clearance Stated complaint: LEAKING COLOSTOMY BAG Time Seen by Provider: 02/15/18 21:03 Source: patient, EMS Mode of arrival: Stretcher Limitations: No Limitations - History of Present Illness Initial comments: Patient is a 48-year-old male who is presenting with a problem with his colostomy. Patient has a colostomy in the right lower quadrant that is now leaking. Patient just left this hospital earlier today. Patient has had multiple surgeries and infections and has a wound VAC in place. Patient was in the hospital for approximately 6 weeks. Patient is new to have a colostomy and didn't have his supplies yet. Patient noted stool leaking from one of the edges of the colostomy bag. Patient is here just for supplies and has no other complaints. Severity scale (0 -10): 5 - Related Data Home Medications Medication Instructions Recorded Confirmed Last Taken Lisinopril [Zestril TAB] 10 mg PO QDAY 11/20/17 02/01/18 Unknown Metformin HCl 1 tab PO DAILY 11/20/17 02/01/18 Unknown Zolpidem [Ambien] 10 mg PO QHS 11/20/17 02/01/18 Unknown Previous Rx's Medication Instructions Recorded Last Taken Type azaTHIOprine [Imuran] 50 mg PO QDAY #30 tablet 12/21/17 Unknown Rx predniSONE [Deltasone] 40 mg PO QDAY #60 tablet 12/21/17 Unknown Rx oxyCODONE /ACETAMINOPHEN [Percocet 1 tab PO BID PRN #14 tablet 12/28/17 Unknown Rx 5/325 mg] ALPRAZolam [Xanax TAB] 0.25 mg PO QHS PRN #10 tablet 02/06/18 Unknown Rx Pantoprazole [Protonix TAB] 40 mg PO QDAY #14 tablet 02/06/18 Unknown Rx oxyCODONE /ACETAMINOPHEN [Percocet 1 tab PO BID PRN #14 tablet 02/06/18 Unknown Rx 5/325 mg] Levofloxacin [Levaquin TAB] 500 mg PO Q24HR #11 tablet 02/15/18 Unknown Rx Linezolid [Zyvox] 600 mg PO BID #25 tablet 02/15/18 Unknown Rx oxyCODONE /ACETAMINOPHEN [Percocet 2 tab PO Q6H PRN #12 tablet 02/15/18 Unknown Rx 5/325 mg] Allergies Allergy/AdvReac Type Severity Reaction Status Date / Time No Known Allergies Allergy Unverified 02/10/18 12:01 ED Review of Systems ROS: Stated complaint: LEAKING COLOSTOMY BAG Other details as noted in HPI Comment: All other systems reviewed and negative ED Past Medical Hx - Past Medical History Hx Hypertension: Yes (takes lisinopril) Hx Diabetes: Yes Hx Deep Vein Thrombosis: No Hx COPD: No Hx HIV: No Additional medical history: Crohn's Disease, Bowel obstruction - Surgical History Hx Pacemaker: No Hx Internal Defibrillator: No Additional Surgical History: 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 Gastric surgery (patient uncertain what was done) - Social History Smoking Status: Never Smoker Substance Use Type: None - Medications Home Medications: Home Medications Medication Instructions Recorded Confirmed Last Taken Type Lisinopril [Zestril TAB] 10 mg PO QDAY 11/20/17 02/01/18 Unknown History Metformin HCl 1 tab PO DAILY 11/20/17 02/01/18 Unknown History Zolpidem [Ambien] 10 mg PO QHS 11/20/17 02/01/18 Unknown History azaTHIOprine [Imuran] 50 mg PO QDAY #30 tablet 12/21/17 02/01/18 Unknown Rx predniSONE [Deltasone] 40 mg PO QDAY #60 tablet 12/21/17 02/01/18 Unknown Rx oxyCODONE /ACETAMINOPHEN [Percocet 1 tab PO BID PRN #14 tablet 12/28/17 Unknown Rx 5/325 mg] ALPRAZolam [Xanax TAB] 0.25 mg PO QHS PRN #10 tablet 02/06/18 Unknown Rx Pantoprazole [Protonix TAB] 40 mg PO QDAY #14 tablet 02/06/18 Unknown Rx oxyCODONE /ACETAMINOPHEN [Percocet 1 tab PO BID PRN #14 tablet 02/06/18 Unknown Rx 5/325 mg] Levofloxacin [Levaquin TAB] 500 mg PO Q24HR #11 tablet 02/15/18 Unknown Rx Linezolid [Zyvox] 600 mg PO BID #25 tablet 02/15/18 Unknown Rx oxyCODONE /ACETAMINOPHEN [Percocet 2 tab PO Q6H PRN #12 tablet 02/15/18 Unknown Rx 5/325 mg] ED Physical Exam - General Limitations: No Limitations General appearance: alert, in no apparent distress - Head Head exam: Present: atraumatic, normocephalic - Eye Eye exam: Present: normal appearance - ENT ENT exam: Present: mucous membranes moist - Neck Neck exam: Present: normal inspection - Respiratory Respiratory exam: Present: normal lung sounds bilaterally. Absent: respiratory distress - Cardiovascular Cardiovascular Exam: Present: regular rate, normal rhythm. Absent: systolic murmur, diastolic murmur, rubs, gallop - GI/Abdominal GI/Abdominal exam: Present: soft, normal bowel sounds, other (patient has a midline wound which has a intact wound VAC present. Patient has a ostomy in the left lower quadrant and the right lower quadrant. The colostomy in the right lower quadrant has stool in the bag is also some stool leaking from the adhesive bandage.) - Rectal Rectal exam: Present: deferred - Extremities Exam Extremities exam: Present: normal inspection - Back Exam Back exam: Present: normal inspection - Neurological Exam Neurological exam: Present: alert, oriented X3 - Psychiatric Psychiatric exam: Present: normal affect, normal mood - Skin Skin exam: Present: warm, dry, intact, normal color. Absent: rash ED Course Vital Signs 02/15/18 02/15/18 20:16 20:22 Temperature 97.8 F 97.8 F Pulse Rate 100 H 100 H Respiratory 16 16 Rate Blood Pressure 114/77 Blood Pressure 114/77 [Left] O2 Sat by Pulse 96 100 Oximetry ED Medical Decision Making - Medical Decision Making Patient has colostomy bag change to be discharged home with a one-day supply Critical care attestation.: If time is entered above; I have spent that time in minutes in the direct care of this critically ill patient, excluding procedure time. ED Disposition Clinical Impression: Colostomy care Disposition: DC-01 TO HOME OR SELFCARE Is pt being admited?: No Does the pt Need Aspirin: No Condition: Stable
[2018-02-15] MEDS ORDERED: PERCOCET 5/325 PO ONE (22:16)
== END 2018-02-15 22:44 | disposition home or self-care (01) ==
LOC: ED 20:08
DX: K94.09 Other complications of colostomy (principal); R07.89 Other chest pain; E11.9 Type 2 diabetes mellitus without complications; K50.90 Crohn's disease, unspecified, without complications
CPT/HCPCS: 93005; 93010; 99283

== ENCOUNTER 2018-02-16 17:31 | Emergency (ER) | payer OTHER ==
[2018-02-16] MEDS ORDERED: NORCO 10/325 PO ONE (19:10)
--- NOTE | 2018-02-16 19:15 | Emergency Department Report ---
ED General Adult HPI - General Chief complaint: Wound/Laceration Stated complaint: LEAKING COLOSTOMY BAG Time Seen by Provider: 02/16/18 18:30 Source: EMS Mode of arrival: Stretcher Limitations: No Limitations - History of Present Illness Initial comments: pt. was here yesterday and had his colostomy bag changed and is here again with the colostomy bag leaking at the sides. he also says he as red drainage from the bag which he typically does not have. he is also complaining of pain at the wound vac. site and colostomy site. he was discharged from the hospital yesterday . patient normally takes pain medications for his abdominal pain but as not taken one since midday MD Complaint: leaking colostomy bag and abdominal pain -: Gradual Location: abdomen Radiation: non-radiation Severity scale (0 -10): 9 Quality: aching Consistency: intermittent Improves with: none Worsens with: none Associated Symptoms: denies other symptoms Treatments Prior to Arrival: none - Related Data Home Medications Medication Instructions Recorded Confirmed Last Taken Lisinopril [Zestril TAB] 10 mg PO QDAY 11/20/17 02/01/18 Unknown Metformin HCl 1 tab PO DAILY 11/20/17 02/01/18 Unknown Zolpidem [Ambien] 10 mg PO QHS 11/20/17 02/01/18 Unknown Previous Rx's Medication Instructions Recorded Last Taken Type azaTHIOprine [Imuran] 50 mg PO QDAY #30 tablet 12/21/17 Unknown Rx predniSONE [Deltasone] 40 mg PO QDAY #60 tablet 12/21/17 Unknown Rx oxyCODONE /ACETAMINOPHEN [Percocet 1 tab PO BID PRN #14 tablet 12/28/17 Unknown Rx 5/325 mg] ALPRAZolam [Xanax TAB] 0.25 mg PO QHS PRN #10 tablet 02/06/18 Unknown Rx Pantoprazole [Protonix TAB] 40 mg PO QDAY #14 tablet 02/06/18 Unknown Rx oxyCODONE /ACETAMINOPHEN [Percocet 1 tab PO BID PRN #14 tablet 02/06/18 Unknown Rx 5/325 mg] Levofloxacin [Levaquin TAB] 500 mg PO Q24HR #11 tablet 02/15/18 Unknown Rx Linezolid [Zyvox] 600 mg PO BID #25 tablet 02/15/18 Unknown Rx oxyCODONE /ACETAMINOPHEN [Percocet 2 tab PO Q6H PRN #12 tablet 02/15/18 Unknown Rx 5/325 mg] Allergies Allergy/AdvReac Type Severity Reaction Status Date / Time No Known Allergies Allergy Unverified 02/10/18 12:01 ED Review of Systems ROS: Stated complaint: LEAKING COLOSTOMY BAG Other details as noted in HPI Comment: All other systems reviewed and negative ED Past Medical Hx - Past Medical History Previous Medical History?: Yes Hx Hypertension: Yes (takes lisinopril) Hx Diabetes: Yes Hx Deep Vein Thrombosis: No Hx COPD: No Hx HIV: No Additional medical history: Crohn's Disease, Bowel obstruction - Surgical History Past Surgical History?: Yes Hx Pacemaker: No Hx Internal Defibrillator: No Additional Surgical History: 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 Gastric surgery (patient uncertain what was done) - Social History Smoking Status: Never Smoker Substance Use Type: Marijuana - Medications Home Medications: Home Medications Medication Instructions Recorded Confirmed Last Taken Type Lisinopril [Zestril TAB] 10 mg PO QDAY 11/20/17 02/01/18 Unknown History Metformin HCl 1 tab PO DAILY 11/20/17 02/01/18 Unknown History Zolpidem [Ambien] 10 mg PO QHS 11/20/17 02/01/18 Unknown History azaTHIOprine [Imuran] 50 mg PO QDAY #30 tablet 12/21/17 02/01/18 Unknown Rx predniSONE [Deltasone] 40 mg PO QDAY #60 tablet 12/21/17 02/01/18 Unknown Rx oxyCODONE /ACETAMINOPHEN [Percocet 1 tab PO BID PRN #14 tablet 12/28/17 Unknown Rx 5/325 mg] ALPRAZolam [Xanax TAB] 0.25 mg PO QHS PRN #10 tablet 02/06/18 Unknown Rx Pantoprazole [Protonix TAB] 40 mg PO QDAY #14 tablet 02/06/18 Unknown Rx oxyCODONE /ACETAMINOPHEN [Percocet 1 tab PO BID PRN #14 tablet 02/06/18 Unknown Rx 5/325 mg] Levofloxacin [Levaquin TAB] 500 mg PO Q24HR #11 tablet 02/15/18 Unknown Rx Linezolid [Zyvox] 600 mg PO BID #25 tablet 02/15/18 Unknown Rx oxyCODONE /ACETAMINOPHEN [Percocet 2 tab PO Q6H PRN #12 tablet 02/15/18 Unknown Rx 5/325 mg] ED Physical Exam - General Limitations: No Limitations General appearance: alert, in no apparent distress - Head Head exam: Present: atraumatic, normocephalic - Eye Eye exam: Present: normal appearance - ENT ENT exam: Present: mucous membranes moist - Neck Neck exam: Present: normal inspection - Respiratory Respiratory exam: Present: normal lung sounds bilaterally. Absent: respiratory distress - Cardiovascular Cardiovascular Exam: Present: regular rate, normal rhythm. Absent: systolic murmur, diastolic murmur, rubs, gallop - GI/Abdominal GI/Abdominal exam: Present: soft, tenderness (at wound vac.. site and colostomy site. bloody discharge in colostomy bag), normal bowel sounds, other (2 ostomy site and wound vac. on the abdomen). Absent: distended, rebound - Rectal Rectal exam: Present: deferred - Extremities Exam Extremities exam: Present: normal inspection - Back Exam Back exam: Present: normal inspection - Neurological Exam Neurological exam: Present: alert, oriented X3 - Psychiatric Psychiatric exam: Present: normal affect, normal mood - Skin Skin exam: Present: warm, dry, intact, normal color. Absent: rash ED Course Vital Signs 02/16/18 02/16/18 02/16/18 17:50 17:57 18:43 Temperature 97.7 F Pulse Rate 91 H 93 H Respiratory 15 14 16 Rate Blood Pressure 129/75 Blood Pressure 116/73 [Left] O2 Sat by Pulse 99 99 100 Oximetry 02/16/18 02/16/18 19:29 19:37 Temperature 98.1 F Pulse Rate 104 H Respiratory 16 16 Rate Blood Pressure Blood Pressure 128/87 [Left] O2 Sat by Pulse 100 Oximetry - Reevaluation(s) Reevaluation #1: 02/16/18 20:52 The patient's colostomy bag was changed prior to him being discharged. Patient' s stool for occult blood was positive however the patient declines any kind of CT of the abdomen and pelvis to further evaluate this. The site around the colostomy bag appears to be clean. I did advise the patient when he follows up in the wound clinic where He also sees the general surgeon who did the surgery that he should mention the bloody drainage in the colostomy bag. He is due to see the wound clinic on Sunday which is in 2 days' time 02/16/18 20:53 Critical care attestation.: If time is entered above; I have spent that time in minutes in the direct care of this critically ill patient, excluding procedure time. ED Disposition Clinical Impression: Complication of ostomy, Abdominal pain Disposition: DC-01 TO HOME OR SELFCARE Is pt being admited?: No Does the pt Need Aspirin: No Condition: Stable Instructions: Colostomy Care (ED) Additional Instructions: Follow-up with a general surgeon who did your surgery in 2 days Referrals: [facility] [Other] - 3-5 Days Time of Disposition: 20:56 Print Language: SPANISH
[2018-02-16 19:38] VITALS: BP 128/87
== END 2018-02-16 21:10 | disposition home or self-care (01) ==
LOC: ED 17:31
DX: K94.09 Other complications of colostomy (principal); I10 Essential (primary) hypertension; E11.9 Type 2 diabetes mellitus without complications; K50.90 Crohn's disease, unspecified, without complications; F12.10 Cannabis abuse, uncomplicated
CPT/HCPCS: 99283

== ENCOUNTER 2018-02-18 08:02 | Outpatient (CLI) | payer OTHER | END 2018-02-18 08:03 | disposition home or self-care (01) | LOC: WOUND 08:02 | PROVIDERS: ATTEND Internal Medicine | DX: T81.89XA Other complications of procedures, not elsewhere classified, initial encounter (principal); S31.109A Unspecified open wound of abdominal wall, unspecified quadrant without penetration into peritoneal cavity, initial encounter; E11.9 Type 2 diabetes mellitus without complications; I10 Essential (primary) hypertension; Z85.038 Personal history of other malignant neoplasm of large intestine; Z87.891 Personal history of nicotine dependence; X58.XXXA Exposure to other specified factors, initial encounter; Y83.8 Other surgical procedures as the cause of abnormal reaction of the patient, or of later complication, without mention of misadventure at the time of the procedure; Y92.89 Other specified places as the place of occurrence of the external cause; Y93.89 Activity, other specified; Y99.8 Other external cause status | CPT/HCPCS: 97606; G0463 ==

== ENCOUNTER 2018-02-19 08:02 | Outpatient (CLI) | payer OTHER | END 2018-02-19 08:03 | disposition home or self-care (01) | LOC: WOUND 08:02 | PROVIDERS: ATTEND Surgery | DX: T81.89XD Other complications of procedures, not elsewhere classified, subsequent encounter (principal); E11.9 Type 2 diabetes mellitus without complications; I10 Essential (primary) hypertension; Z85.038 Personal history of other malignant neoplasm of large intestine; Z87.891 Personal history of nicotine dependence; Y83.8 Other surgical procedures as the cause of abnormal reaction of the patient, or of later complication, without mention of misadventure at the time of the procedure | CPT/HCPCS: 97606 ==

== ENCOUNTER 2018-02-22 11:08 | Outpatient (CLI) | payer OTHER | END 2018-02-22 11:09 | disposition home or self-care (01) | LOC: WOUND 11:08 | PROVIDERS: ATTEND Podiatrist | DX: T81.89XD Other complications of procedures, not elsewhere classified, subsequent encounter (principal); E11.9 Type 2 diabetes mellitus without complications; I10 Essential (primary) hypertension; Z85.038 Personal history of other malignant neoplasm of large intestine; Z87.891 Personal history of nicotine dependence; Y83.8 Other surgical procedures as the cause of abnormal reaction of the patient, or of later complication, without mention of misadventure at the time of the procedure | CPT/HCPCS: 97606 ==

== ENCOUNTER 2018-02-25 09:34 | Outpatient (CLI) | payer OTHER | END 2018-02-25 09:35 | disposition home or self-care (01) | LOC: WOUND 09:34 | PROVIDERS: ATTEND Internal Medicine | DX: T81.89XD Other complications of procedures, not elsewhere classified, subsequent encounter (principal); E11.9 Type 2 diabetes mellitus without complications; I10 Essential (primary) hypertension; Z85.038 Personal history of other malignant neoplasm of large intestine; Z87.891 Personal history of nicotine dependence; Y83.8 Other surgical procedures as the cause of abnormal reaction of the patient, or of later complication, without mention of misadventure at the time of the procedure | CPT/HCPCS: 97606; G0463; 99213 ==

== ENCOUNTER 2018-02-26 08:27 | Outpatient (CLI) | payer OTHER ==
[2018-02-26] MEDS ORDERED: XYLOCAINE TOPICAL 4% TP ONE ×2 (08:42→09:02)
== END 2018-02-26 08:28 | disposition home or self-care (01) ==
LOC: WOUND 08:27
PROVIDERS: ATTEND Surgery
DX: T81.89XD Other complications of procedures, not elsewhere classified, subsequent encounter (principal); E11.9 Type 2 diabetes mellitus without complications; I10 Essential (primary) hypertension; Z85.038 Personal history of other malignant neoplasm of large intestine; Z87.891 Personal history of nicotine dependence; Y83.8 Other surgical procedures as the cause of abnormal reaction of the patient, or of later complication, without mention of misadventure at the time of the procedure
CPT/HCPCS: 97606

== ENCOUNTER 2018-02-26 16:14 | Emergency (ER) | payer SELFPAY ==
[2018-02-26 16:20] VITALS: BP 137/97
== END 2018-02-26 20:20 | disposition left against medical advice (07) ==
LOC: ED 16:14
DX: Z43.3 Encounter for attention to colostomy (principal); R06.02 Shortness of breath; Z53.21 Procedure and treatment not carried out due to patient leaving prior to being seen by health care provider

== ENCOUNTER 2018-02-27 04:20 | Inpatient (IN) | payer OTHER ==
[2018-02-27 06:37] LABS: Basophils # (Auto) 0.1 K/mm3 (0.0-0.1); Basophils % (Auto) 0.4 % (0.0-1.8); Eosinophils % (Auto) 0.4 % (0.0-4.3); Hematocrit 35.8 % (35.5-45.6); Hemoglobin 11.6 gm/dl (11.8-15.2); Lymphocytes # (Auto) 0.7 K/mm3 (1.2-5.4); Lymphocytes % (Auto) 5.9 % (13.4-35.0); Mean Corpuscular HGB Conc 33 % (32-34); Mean Corpuscular Hemoglobin 27 pg (28-32); Mean Corpuscular Volume 82 fl (84-94); Monocytes % (Auto) 8.6 % (0.0-7.3); Platelet Count 457 K/mm3 (140-440); Red Blood Count 4.34 M/mm3 (3.65-5.03); Red Cell Distribution Width 16.9 % (13.2-15.2)
[2018-02-27 06:58] LABS: Alanine Aminotransferase < 5 units/L (7-56); Albumin 2.9 g/dL (3.9-5); BUN/Creatinine Ratio 20; Blood Urea Nitrogen 14 mg/dL (9-20); Calcium 8.8 mg/dL (8.4-10.2); Hemolysis Index 5; Lipase 66 units/L (13-60)
--- NOTE | 2018-02-27 08:44 | Emergency Department Report ---
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 He was treated for sepsis with Gram negatives and enterococcus while in the hospital during his February admission. He was discharged on antibiotics to include linezolid and Levaquin. He has been going to the wound care clinic. His wound VAC again fell off. He is status post colostomy and urostomy. He had to have wide open drainage. He reports diffuse abdominal pain. The patient reports recurrent spillage of ostomy output into his abdominal wound. He has erythema of the skin in that location. He states the bags are constantly falling off. In addition apparently he has had problems with his insurance coverage for home health and supplies. He states that his colostomy has normal output. MD Complaint: abdominal pain -: week(s) Location: diffuse Radiation: none Severity: moderate, severe Quality: aching Consistency: constant Improves With: nothing Worsens With: eating Associated Symptoms: other (states unable to eat) - Related Data Home Medications Medication Instructions Recorded Confirmed Last Taken Lisinopril [Zestril TAB] 10 mg PO QDAY 11/20/17 02/01/18 Unknown Metformin HCl 1 tab PO DAILY 11/20/17 02/01/18 Unknown Zolpidem [Ambien] 10 mg PO QHS 11/20/17 02/01/18 Unknown Previous Rx's Medication Instructions Recorded Last Taken Type azaTHIOprine [Imuran] 50 mg PO QDAY #30 tablet 12/21/17 Unknown Rx predniSONE [Deltasone] 40 mg PO QDAY #60 tablet 12/21/17 Unknown Rx oxyCODONE /ACETAMINOPHEN [Percocet 1 tab PO BID PRN #14 tablet 12/28/17 Unknown Rx 5/325 mg] ALPRAZolam [Xanax TAB] 0.25 mg PO QHS PRN #10 tablet 02/06/18 Unknown Rx Pantoprazole [Protonix TAB] 40 mg PO QDAY #14 tablet 02/06/18 Unknown Rx oxyCODONE /ACETAMINOPHEN [Percocet 1 tab PO BID PRN #14 tablet 02/06/18 Unknown Rx 5/325 mg] Levofloxacin [Levaquin TAB] 500 mg PO Q24HR #11 tablet 02/15/18 Unknown Rx Linezolid [Zyvox] 600 mg PO BID #25 tablet 02/15/18 Unknown Rx oxyCODONE /ACETAMINOPHEN [Percocet 2 tab PO Q6H PRN #12 tablet 02/15/18 Unknown Rx 5/325 mg] Allergies Allergy/AdvReac Type Severity Reaction Status Date / Time No Known Allergies Allergy Verified 02/26/18 16:18 ED Review of Systems ROS: Stated complaint: WOUND VAC DIFFICULTIES Other details as noted in HPI Constitutional: denies: chills, fever Eyes: denies: eye pain, eye discharge, vision change ENT: denies: ear pain, throat pain Respiratory: denies: cough, shortness of breath, wheezing Cardiovascular: denies: chest pain, palpitations Endocrine: no symptoms reported Gastrointestinal: abdominal pain, nausea, vomiting. denies: diarrhea Genitourinary: denies: urgency, dysuria Musculoskeletal: denies: back pain, joint swelling, arthralgia Skin: denies: rash, lesions Neurological: denies: headache, weakness, paresthesias Psychiatric: denies: anxiety, depression Hematological/Lymphatic: denies: easy bleeding, easy bruising ED Past Medical Hx - Past Medical History Hx Hypertension: Yes Hx Diabetes: Yes Hx Deep Vein Thrombosis: No Hx COPD: No Hx HIV: No Additional medical history: Crohn's Disease, Bowel obstruction - Surgical History Hx Pacemaker: No Hx Internal Defibrillator: No Additional Surgical History: 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 Gastric surgery (patient uncertain what was done) - Social History Smoking Status: Never Smoker Substance Use Type: None - Medications Home Medications: Home Medications Medication Instructions Recorded Confirmed Last Taken Type Lisinopril [Zestril TAB] 10 mg PO QDAY 11/20/17 02/01/18 Unknown History Metformin HCl 1 tab PO DAILY 11/20/17 02/01/18 Unknown History Zolpidem [Ambien] 10 mg PO QHS 11/20/17 02/01/18 Unknown History azaTHIOprine [Imuran] 50 mg PO QDAY #30 tablet 12/21/17 02/01/18 Unknown Rx predniSONE [Deltasone] 40 mg PO QDAY #60 tablet 12/21/17 02/01/18 Unknown Rx oxyCODONE /ACETAMINOPHEN [Percocet 1 tab PO BID PRN #14 tablet 12/28/17 Unknown Rx 5/325 mg] ALPRAZolam [Xanax TAB] 0.25 mg PO QHS PRN #10 tablet 02/06/18 Unknown Rx Pantoprazole [Protonix TAB] 40 mg PO QDAY #14 tablet 02/06/18 Unknown Rx oxyCODONE /ACETAMINOPHEN [Percocet 1 tab PO BID PRN #14 tablet 02/06/18 Unknown Rx 5/325 mg] Levofloxacin [Levaquin TAB] 500 mg PO Q24HR #11 tablet 02/15/18 Unknown Rx Linezolid [Zyvox] 600 mg PO BID #25 tablet 02/15/18 Unknown Rx oxyCODONE /ACETAMINOPHEN [Percocet 2 tab PO Q6H PRN #12 tablet 02/15/18 Unknown Rx 5/325 mg] ED Physical Exam - General Limitations: No Limitations General appearance: cachectic, other (appears dehydrated) - Head Head exam: Present: atraumatic, normocephalic - Eye Eye exam: Present: normal appearance, PERRL, EOMI. Absent: scleral icterus - ENT ENT exam: Present: mucous membranes moist - Neck Neck exam: Present: normal inspection - Respiratory Respiratory exam: Present: normal lung sounds bilaterally. Absent: respiratory distress - Cardiovascular Cardiovascular Exam: Present: regular rate, normal rhythm. Absent: systolic murmur, diastolic murmur, rubs, gallop - GI/Abdominal GI/Abdominal exam: Present: soft, tenderness (diffuse), guarding (perhaps some voluntary), normal bowel sounds, other (wide incision granulating well no peritoneum or defect obvious, ostomy sites). Absent: rebound, rigid - Rectal Rectal exam: Present: deferred - Extremities Exam Extremities exam: Present: normal inspection - Back Exam Back exam: Present: normal inspection - Neurological Exam Neurological exam: Present: alert, oriented X3 - Psychiatric Psychiatric exam: Present: normal affect, normal mood - Skin Skin exam: Present: warm, dry, intact, normal color. Absent: rash ED Course Vital Signs 02/27/18 02/27/18 06:01 10:21 Temperature 98.3 F Pulse Rate 112 H Respiratory 18 Rate Blood Pressure 116/87 O2 Sat by Pulse 100 98 Oximetry - Reevaluation(s) Reevaluation #1: CT abdomen was obtained. The patient was treated empirically with Zosyn initially. Later I added on a steroid. Dr. Gordon, saw the patient. The patient is to be admitted to the hospitalist service. We will consult infectious disease. 02/27/18 12:39 02/27/18 12:54 Discussed with . The patient will be admitted to the hospital service. He was given analgesia and antibiotics. He remained hemodynamically stable. 02/27/18 12:53 ED Medical Decision Making - Lab Data Result diagrams: 02/27/18 06:27 02/27/18 06:27 Laboratory Results - last 24 hr 02/27/18 02/27/18 06:27 06:27 WBC 11.9 H RBC 4.34 Hgb 11.6 L Hct 35.8 MCV 82 L MCH 27 L MCHC 33 RDW 16.9 H Plt Count 457 H Lymph % (Auto) 5.9 L [place] % (Auto) 8.6 H Eos % (Auto) 0.4 Baso % (Auto) 0.4 Lymph # 0.7 L [place] # 1.0 H Eos # 0.0 Baso # 0.1 Seg Neutrophils % 84.7 H Seg Neutrophils # 10.0 H Sodium 137 Potassium 4.0 Chloride 96.4 L Carbon Dioxide 26 Anion Gap 19 BUN 14 Creatinine 0.7 L Estimated GFR > 60 BUN/Creatinine Ratio 20 Glucose 170 H Calcium 8.8 Total Bilirubin 0.20 AST 10 ALT < 5 L Alkaline Phosphatase 129 Total Protein 6.8 Albumin 2.9 L Albumin/Globulin Ratio 0.7 Lipase 66 H - Radiology Data Radiology results: report reviewed (consistent with multiple intra-abdominal abscesses) Critical care attestation.: If time is entered above; I have spent that time in minutes in the direct care of this critically ill patient, excluding procedure time. ED Disposition Clinical Impression: Intra-abdominal infection, Metastatic carcinoma Disposition: OP ADMIT IP TO THIS HOSP Is pt being admited?: Yes Does the pt Need Aspirin: No Condition: Stable Referrals: GERHARD QUIGLEY MD [Primary Care Provider] - 3-5 Days
[2018-02-27] MEDS ORDERED: DILAUDID IV ONE ×2 (08:58→12:28)
[2018-02-27] MEDS ORDERED: BENADRYL IV ONE ×2 (08:58→12:28)
[2018-02-27] MEDS ORDERED: ZOFRAN IV ONE (08:58)
[2018-02-27] MEDS ORDERED: NACL 0.9% 1000 ML 1,000 ML IV ONE ×2 (08:59→13:01)
[2018-02-27 09:51] LABS: Lipase 65 units/L (13-60)
[2018-02-27 09:53] LABS: INR 0.96 (0.87-1.13)
[2018-02-27 09:54] LABS: Partial Thromboplastin Time 31.4 Sec. (24.2-36.6)
--- NOTE | 2018-02-27 10:06 | Cat Scan Report ---
CT ABDOMEN PELVIS WITH CONTRAST: HISTORY: Postop infection, dehiscence. COMPARISON: none. TECHNIQUE: Helical CT in 1.25mm intervals following IV contrast. Sagittal and coronal reconstructions. FINDINGS: Lung bases: Normal. Liver: Normal. Biliary system: Normal. Pancreas: Normal. Spleen: Normal. Kidneys/ureters/bladder: Normal. Adrenal glands: Normal. Aorta: Normal. Intestines: Recent abdominal surgical changes are identified with bilateral lower quadrant ostomies placed. Small bowel obstruction has resolved since 01/17/18. There are a few small fluid collections in the right abdomen extending from the subhepatic space down the right paracolic gutter which measures 2-3 cm in diameter. These may represent small postoperative abscesses. Appendix: Not identified. Ascites: None. Adenopathy: None. Musculoskeletal: Intact. IMPRESSION: Recent surgical changes in the abdomen. Small bowel obstruction pattern has resolved since 01/17/18. Multiple small fluid collections are suspected in the right abdomen which may represent early postoperative abscesses.
[2018-02-27] MEDS: ZOSYN/NS 3.375GM/50ML 3.375 GM/50 ML BAG IV SCH ×2 (10:09→19:03)
[2018-02-27 12:53] LABS: Bilirubin,Urine NEG (Negative); Blood,Urine NEG (Negative); Color,Urine Yellow (Yellow); Mucus,Urine 1+ /HPF; Protein,Urine <15 mg/dL mg/dL (Negative); Urobilinogen,Urine < 2.0 mg/dL (<2.0)
[2018-02-27] MEDS: ZYVOX 600MG/300ML 600 MG/300 ML BAG IV SCH ×2 (13:46→22:52)
--- NOTE | 2018-02-27 14:03 | History and Physical Report ---
History of Present Illness Date of admission: 02/27/18 12:57 Chief complaint: My stomach hurts History of present illness: 48 YO Male with Crohns Disease, Appendiceal Carcinoma, HTN, DM, Midline wound under the care of wound clinic presents to ED for evaluation. Pt states that he has experienced abdominal pain for the past three days with worsening symptoms over the same time frame. Pt states that his pain is 6/10, diffuse, constant, nonradiating, worsened with eating, no alleviating factors. Pt acknowledges that his "wound vac fell off again" and that ostomy contents subsequently spilled into his abdominal wound. Pt seen and evaluated in ED and found to have Abdominal Wall Cellulitis. Pt denies fever, chills, CP, Palpitations, NVD, Trauma, BRBPR, or recent ill contacts. PT admitted to medical floor. Surgery team consulted in ED. ID Team consulted in ED. Past History Past Medical History: cancer, diabetes, hypertension, other (Crohns Disease) Past Surgical History: Other (bowel surgery, Other (Debridement of abdominal wall wound. Exlap, ileocecectomy 01/17/18 -> exlap, small bowel resection, right hemicolectomy, ileostomy and mucus fistula creation 01/28/18. Exlap, Gastrojejunostomy. Exlap, SBR.))) Social history: single. denies: smoking, alcohol abuse, prescription drug abuse Family history: cancer Medications and Allergies Allergies Allergy/AdvReac Type Severity Reaction Status Date / Time No Known Allergies Allergy Verified 02/26/18 16:18 Home Medications Medication Instructions Recorded Confirmed Last Taken Type Lisinopril [Zestril TAB] 10 mg PO QDAY 11/20/17 02/27/18 Unknown History Metformin HCl 1 tab PO DAILY 11/20/17 02/27/18 Unknown History Zolpidem [Ambien] 10 mg PO QHS 11/20/17 02/27/18 Unknown History azaTHIOprine [Imuran] 50 mg PO QDAY #30 tablet 12/21/17 02/27/18 Unknown Rx predniSONE [Deltasone] 40 mg PO QDAY #60 tablet 12/21/17 02/27/18 Unknown Rx ALPRAZolam [Xanax TAB] 0.25 mg PO QHS PRN #10 tablet 04/04/18 04/25/18 Unknown Rx Levofloxacin [Levaquin TAB] 500 mg PO Q24HR #11 tablet 02/15/18 02/27/18 Unknown Rx Linezolid [Zyvox] 600 mg PO BID #25 tablet 02/15/18 02/27/18 Unknown Rx Active Meds: Active Medications Piperacillin Sod/Tazobactam Sod (Zosyn/Ns 3.375gm/50ml) 3.375 gm in 50 mls @ 100 mls/hr IV Q6HR KELLY; Protocol Last Admin: 02/27/18 10:09 Dose: 100 mls/hr Linezolid (Zyvox 600mg/300ml) 600 mg in 300 mls @ 300 mls/hr IV Q12HR KELLY; Protocol Last Admin: 02/27/18 13:46 Dose: 300 mls/hr Sodium Chloride (Nacl 0.9% 1000 Ml) 1,000 mls @ 125 mls/hr IV ONCE ONE Stop: 02/27/18 21:00 Review of Systems Constitutional: no weight loss, no weight gain, no fever, no chills Ears, nose, mouth and throat: no ear pain, no ear discharge, no tinnitis, no decreased hearing, no nose pain, no nasal congestion Cardiovascular: no chest pain, no orthopnea, no palpitations, no rapid/ irregular heart beat, no edema, no syncope Respiratory: no cough, no cough with sputum, no excessive sputum, no hemoptysis , no shortness of breath Gastrointestinal: abdominal pain, no nausea, no diarrhea, no constipation, no BRBPR Genitourinary Male: no hematuria, no flank pain, no discharge, no urinary frequency, no urinary hesitancy Rectal: no pain, no incontinence, no bleeding Musculoskeletal: no neck stiffness, no neck pain, no shooting arm pain, no arm numbness/tingling, no low back pain, no shooting leg pain Integumentary: no rash, no pruritis, no redness, no sores, no wounds, no jaundice Neurological: no head injury, no paralysis, no weakness, no parathesias, no numbness, no tingling, no seizures, no syncope Psychiatric: no anxiety, no memory loss, no change in sleep habits, no sleep disturbances, no insomnia Endocrine: no cold intolerance, no heat intolerance, no polyphagia, no excessive thirst, no polydipsia, no polyuria Hematologic/Lymphatic: no easy bruising, no easy bleeding, no lymphadenopathy, no lymphedema Allergic/Immunologic: no urticaria, no allergic rhinitis, no wheezing, no persistent infections, no anaphylaxis Exam - Constitutional Vitals: Temp Pulse Resp BP Pulse Ox 98.3 F 112 H 18 116/87 98 02/27/18 06:01 02/27/18 06:01 02/27/18 06:01 02/27/18 06:01 02/27/18 10:21 General appearance: Present: mild distress - EENT Eyes: Present: PERRL ENT: hearing intact, clear oral mucosa - Neck Neck: Present: supple, normal ROM - Respiratory Respiratory effort: normal Respiratory: bilateral: CTA - Cardiovascular Heart Sounds: Present: S1 & S2. Absent: rub, click - Extremities Extremities: pulses symmetrical, No edema Peripheral Pulses: within normal limits - Abdominal General gastrointestinal: Present: soft, tender, non-distended, normal bowel sounds, other (ostomy in place, erythema, ) Male genitourinary: Present: normal - Rectal Rectal Exam: normal exam-external/orifice - Integumentary Integumentary: Present: warm, erythema - Musculoskeletal Musculoskeletal: gait normal, strength equal bilaterally - Psychiatric Psychiatric: appropriate mood/affect, intact judgment & insight - Neurologic Neurologic: CNII-XII intact, moves all extremities Results - Labs CBC & Chem 7: 02/27/18 06:27 02/27/18 06:27 Labs: Abnormal lab results 02/27/18 02/27/18 02/27/18 Range/Units 06:27 06:27 09:15 WBC 11.9 H (4.5-11.0) K/mm3 Hgb 11.6 L (11.8-15.2) gm/dl MCV 82 L (84-94) fl MCH 27 L (28-32) pg RDW 16.9 H (13.2-15.2) % Plt Count 457 H (140-440) K/mm3 Lymph % (Auto) 5.9 L (13.4-35.0) % [place] % (Auto) 8.6 H (0.0-7.3) % Lymph # 0.7 L (1.2-5.4) K/mm3 [place] # 1.0 H (0.0-0.8) K/mm3 Seg Neutrophils % 84.7 H (40.0-70.0) % Seg Neutrophils # 10.0 H (1.8-7.7) K/mm3 Chloride 96.4 L (98-107) mmol/L Creatinine 0.7 L (0.8-1.5) mg/dL Glucose 170 H (75-100) mg/dL ALT < 5 L (7-56) units/L Albumin 2.9 L (3.9-5) g/dL Lipase 66 H 65 H (13-60) units/L Ur Specific [place] (1.003-1.030) 02/27/18 Range/Units 12:43 WBC (4.5-11.0) K/mm3 Hgb (11.8-15.2) gm/dl MCV (84-94) fl MCH (28-32) pg RDW (13.2-15.2) % Plt Count (140-440) K/mm3 Lymph % (Auto) (13.4-35.0) % [place] % (Auto) (0.0-7.3) % Lymph # (1.2-5.4) K/mm3 [place] # (0.0-0.8) K/mm3 Seg Neutrophils % (40.0-70.0) % Seg Neutrophils # (1.8-7.7) K/mm3 Chloride (98-107) mmol/L Creatinine (0.8-1.5) mg/dL Glucose (75-100) mg/dL ALT (7-56) units/L Albumin (3.9-5) g/dL Lipase (13-60) units/L Ur Specific [place] 1.060 H (1.003-1.030) Assessment and Plan - Patient Problems (1) Abdominal wall cellulitis Current Visit: No Status: Acute Plan to address problem: IV antibiotic therapy, IVF resuscitation, wound care, Surgery consulted, serial abdominal exam, (2) Cancer of appendix Current Visit: Yes Status: Chronic Plan to address problem: S/P surgical intervention, Surgery team consulted, serial abdominal exam, wound care, (3) Crohns disease Current Visit: Yes Status: Acute Qualifiers: Digestive disease complication type: with intestinal obstruction Plan to address problem: Continue current therapy, IV antibiotic therapy, pain control (4) Malnutrition Current Visit: Yes Status: Acute Qualifiers: Protein-calorie malnutrition severity: severe Plan to address problem: Encourage oral intake, Nutrition consulted, (5) SIRS (systemic inflammatory response syndrome) Current Visit: Yes Status: Acute Plan to address problem: Iv antibiotics, wound care, ID service consulted for antibiotic management. CBC , (6) DVT prophylaxis Current Visit: Yes Status: Acute Plan to address problem: SCD to BLE while in bed
[2018-02-27] MEDS ORDERED: TYLENOL PO PRN (14:04)
[2018-02-27] MEDS ORDERED: PROVENTIL IH PRN (14:04)
[2018-02-27] MEDS: ZOFRAN IV PRN (14:17)
[2018-02-27] MEDS: MORPHINE IV PRN ×2 (15:19→20:34)
--- NOTE | 2018-02-27 15:49 | Consultation ---
History of Present Illness - Reason for Consult Consult date: 02/27/18 intra-abdominal infection Requesting physician: HARESH MILLS - History of Present Illness 48 yo M with history of Crohn's disease, DM, HTN, newly diagnosed colon carcinoma, SBO s/p exploratory laparotomy, ileocecectomy on 01/18/18. Pathology from the index surgery came with colon cancer. Therefore, he underwent on an exploratory laparotomy, small bowel resection, right hemicolectomy, creation of ileostomy and mucous fistula. He was discharged home with a clean midline wound with wound VAC applied, ostomy appliances. Unfortunately, the ileostomy continued to leak into the midline wound and patient had no means to affords home health RN. He was readmitted on 02/10/18 - 02/15/18 when he noted a foul smell from his wound. He was evaluated by the surgical team and was noted to have a grossly infected wound. Wound culture obtained grew Enterococcus faecium (R to PCN, sensitive to vanco) and E. coli Despite local wound care and antibiotics for 48 hours, the wound continued to deteriorate and accumulate purulent exudate. Therefore patient was taken for excisional debridement of infected abdominal wound on 02/13/18. He was on Zosyn and Vancomcyin since . He was discharged on Levofloxacin 750 mg po q24h and linezolid 600 mg PO q12h to complete 14 days course. Unfortunately, the ileostomy continued to leak into the midline wound. He had a wound VAC but it fell off. He reports wound erythema and he is worried wound is still infected. He is taking still zyvox. He is done with levaquin Rx. Zyvox Rx was 6 days delayed. Denies fever, chills, N/V/D. In the ED, temp 97.9, HR 113, R 20, BP 137/97. WBC 11.9. Hg 11.6. Plat 457. Creat 0.7. UA neg. CT abd small bowel obstruction resolved, small fluid collection right abdomen 2-3 cm. Microbiology: Blood cultures: 02/10 neg 02/27 ngtd Urine cultures: 02/10 skin gabriela Wound cultures: 02/10 E coli and Enterococcus faecium Current Antimicrobials: Zosyn Zyvox Past History Past Medical History: other (colon cancer) Past Surgical History: Other (see HPI) Social history: no significant social history Family history: no significant family history Medications and Allergies Allergies Allergy/AdvReac Type Severity Reaction Status Date / Time No Known Allergies Allergy Verified 02/26/18 16:18 Home Medications Medication Instructions Recorded Confirmed Last Taken Type Lisinopril [Zestril TAB] 10 mg PO QDAY 11/20/17 02/27/18 Unknown History Metformin HCl 1 tab PO DAILY 11/20/17 02/27/18 Unknown History Zolpidem [Ambien] 10 mg PO QHS 11/20/17 02/27/18 Unknown History azaTHIOprine [Imuran] 50 mg PO QDAY #30 tablet 12/21/17 02/27/18 Unknown Rx predniSONE [Deltasone] 40 mg PO QDAY #60 tablet 12/21/17 02/27/18 Unknown Rx ALPRAZolam [Xanax TAB] 0.25 mg PO QHS PRN #10 tablet 02/06/18 02/27/18 Unknown Rx Levofloxacin [Levaquin TAB] 500 mg PO Q24HR #11 tablet 02/15/18 02/27/18 Unknown Rx Linezolid [Zyvox] 600 mg PO BID #25 tablet 02/15/18 02/27/18 Unknown Rx Active Meds: Active Medications Acetaminophen (Tylenol) 650 mg PO Q4H PRN PRN Reason: Pain MILD(1-3)/Fever >100.5/SHOOK Albuterol (Proventil) 2.5 mg IH Q4HRT PRN PRN Reason: Shortness Of Breath Piperacillin Sod/Tazobactam Sod (Zosyn/Ns 3.375gm/50ml) 3.375 gm in 50 mls @ 100 mls/hr IV Q6HR KELLY; Protocol Last Admin: 02/27/18 10:09 Dose: 100 mls/hr Linezolid (Zyvox 600mg/300ml) 600 mg in 300 mls @ 300 mls/hr IV Q12HR KELLY; Protocol Last Admin: 02/27/18 13:46 Dose: 300 mls/hr Sodium Chloride (Nacl 0.9% 1000 Ml) 1,000 mls @ 125 mls/hr IV ONCE ONE Stop: 02/27/18 21:00 Morphine Sulfate (Morphine) 2 mg IV Q4H PRN PRN Reason: Pain, Moderate (4-6) Last Admin: 02/27/18 15:19 Dose: 2 mg Ondansetron HCl (Zofran) 4 mg IV Q8H PRN PRN Reason: Nausea And Vomiting Last Admin: 02/27/18 14:17 Dose: 4 mg Sodium Chloride (Sodium Chloride Flush Syringe 10 Ml) 10 ml IV BID KELLY Sodium Chloride (Sodium Chloride Flush Syringe 10 Ml) 10 ml IV PRN PRN PRN Reason: LINE FLUSH Review of Systems All systems: negative (as per HPI rest neg) Physical Examination - Physical Exam Narrative exam: General appearance: Alert in NAD, conversant Eyes: anicteric sclerae, moist conjunctivae; no lid-lag; PERRLA HENT: Atraumatic; oropharynx clear with moist mucous membranes and no mucosal ulcerations/no oral thrush; normal hard and soft palate. Normal external ears. Neck: Trachea midline; supple, no thyromegaly or lymphadenopathy Lungs: CTA, with normal respiratory effort and no intercostal retractions CV: RRR, no murmurs Abdomen: Soft, ileostomy, midline wound mild erythema Extremities: No peripheral edema or extremity lymphadenopathy Skin: Normal temperature, turgor and texture; no rash, ulcers or subcutaneous nodules Psych: Appropriate affect, alert and oriented to person, place and time. Neuro: alert and oriented x 3. Moving all extermities Lines: No CVL / PICC - Constitutional Vitals: Vital Signs Temp Pulse Resp BP Pulse Ox 98.1 F 88 18 130/90 97 02/27/18 14:05 02/27/18 14:05 02/27/18 14:05 02/27/18 14:05 02/27/18 14:05 Temperature -Last 24 Hours Temperature 98.1 F Temperature 98.3 F Results - Labs CBC & Chem 7: 02/27/18 06:27 02/27/18 06:27 Labs: Abnormal lab results 02/27/18 02/27/18 02/27/18 Range/Units 06:27 06:27 09:15 WBC 11.9 H (4.5-11.0) K/mm3 Hgb 11.6 L (11.8-15.2) gm/dl MCV 82 L (84-94) fl MCH 27 L (28-32) pg RDW 16.9 H (13.2-15.2) % Plt Count 457 H (140-440) K/mm3 Lymph % (Auto) 5.9 L (13.4-35.0) % [place] % (Auto) 8.6 H (0.0-7.3) % Lymph # 0.7 L (1.2-5.4) K/mm3 [place] # 1.0 H (0.0-0.8) K/mm3 Seg Neutrophils % 84.7 H (40.0-70.0) % Seg Neutrophils # 10.0 H (1.8-7.7) K/mm3 Chloride 96.4 L (98-107) mmol/L Creatinine 0.7 L (0.8-1.5) mg/dL Glucose 170 H (75-100) mg/dL ALT < 5 L (7-56) units/L Albumin 2.9 L (3.9-5) g/dL Lipase 66 H 65 H (13-60) units/L Ur Specific [place] (1.003-1.030) 02/27/18 Range/Units 12:43 WBC (4.5-11.0) K/mm3 Hgb (11.8-15.2) gm/dl MCV (84-94) fl MCH (28-32) pg RDW (13.2-15.2) % Plt Count (140-440) K/mm3 Lymph % (Auto) (13.4-35.0) % [place] % (Auto) (0.0-7.3) % Lymph # (1.2-5.4) K/mm3 [place] # (0.0-0.8) K/mm3 Seg Neutrophils % (40.0-70.0) % Seg Neutrophils # (1.8-7.7) K/mm3 Chloride (98-107) mmol/L Creatinine (0.8-1.5) mg/dL Glucose (75-100) mg/dL ALT (7-56) units/L Albumin (3.9-5) g/dL Lipase (13-60) units/L Ur Specific [place] 1.060 H (1.003-1.030) Assessment and Plan Assessment: 1) SIRS: present on admission with tachycardia and mild leukocytosis; etiology ? unclear ? persistent intraabdominal infection 2) Recent Wound dehiscence likely due to infected surgical abdominal wound. Superficial wound culture grew Escherichia coli, Enterococcus faecium (R to PCN , sensitive to vanco). s/p excisional wound debridement on 02/13/18. 3) Intra-abdominal abscess: repeat CT showed still 2-3cm collection 4) Crohn's disease with newly diagnosed colon cancer. -s/p exploratory laparotomy, ileocecectomy for small bowel obstruction on . -s/p exploratory laparotomy, small bowel resection, right hemicolectomy, creation of ileostomy and mucous fistula 01/28/18. Recommendations: -continue zosyn and zyvox for now -wound care -check CRP Thank you for your consultation, will follow up with you. Jenniffer Lujan MD Infectious Diseases Specialist [facility] ([facility]) M [phone] O [phone]
--- NOTE | 2018-02-27 16:01 | Consultation ---
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 He is s/p Exploratory laparotomy, lysis of adhesions, small bowel resection, right hemicolectomy, partial omentectomy, creation of end ileostomy and mucus fistula, application of wound vac on 01/28/18 and Exploratory laparotomy, lysis of adhesions, ileocecectomy with primary anastomosis on . The patient has had long protracted hospital courses and was recently readmitted to the hospital for an infection of his midline wound from exposure to stool from his ileostomy. This was found to have ecoli and enterococcus and the patient was discharged with oral antibiotics per ID. He was also being seen the wound care clinic multiple times a week for wound care, vac care, and ostomy care. There were multiple times the patient was taught how to care for his ostomy and prevent leakage into the wound. He was also advised not to remove the wound vac on his own at home. He was offered home care and [facility] placement however, this is not covered by his insurance and the patient does not have the financial means to support this on his own. The patient was seen in the wound care clinic most recently on 02/26/18 at had a superficial debridement of the midline wound by Dr. Hylton and wound vac and ostomy appliance change by wound care nurse. The patient states that he went home and 2 hour after placement of ostomy appliance, it started to leak towards the midline wound. He denies doing anything strenuous and does not know why the seal did not last. Furthermore, he states he has tried everything to get a good seal but there continues to be leakage around the ileostomy. This was not an issue when he was hospitalized but seems to occur frequently when he goes home. He also c/o about abdominal pain in the right abdomen. He denies f/c, cp, sob, n/v. He has been eating well. Past History Past Medical History: cancer, other (Crohns disease) Past Surgical History: bowel surgery, Other (Debridement of abdominal wall wound. Exlap, ileocecectomy 01/17/18 -> exlap, small bowel resection, right hemicolectomy, ileostomy and mucus fistula creation 01/28/18. Exlap, Gastrojejunostomy. Exlap, SBR.)) Social history: no significant social history Family history: no significant family history Medications and Allergies Allergies Allergy/AdvReac Type Severity Reaction Status Date / Time No Known Allergies Allergy Verified 02/26/18 16:18 Home Medications Medication Instructions Recorded Confirmed Last Taken Type Lisinopril [Zestril TAB] 10 mg PO QDAY 11/20/17 02/27/18 Unknown History Metformin HCl 1 tab PO DAILY 11/20/17 02/27/18 Unknown History Zolpidem [Ambien] 10 mg PO QHS 11/20/17 02/27/18 Unknown History azaTHIOprine [Imuran] 50 mg PO QDAY #30 tablet 12/21/17 02/27/18 Unknown Rx predniSONE [Deltasone] 40 mg PO QDAY #60 tablet 12/21/17 02/27/18 Unknown Rx ALPRAZolam [Xanax TAB] 0.25 mg PO QHS PRN #10 tablet 02/06/18 02/27/18 Unknown Rx Levofloxacin [Levaquin TAB] 500 mg PO Q24HR #11 tablet 02/15/18 02/27/18 Unknown Rx Linezolid [Zyvox] 600 mg PO BID #25 tablet 02/15/18 02/27/18 Unknown Rx Active Meds: Active Medications Acetaminophen (Tylenol) 650 mg PO Q4H PRN PRN Reason: Pain MILD(1-3)/Fever >100.5/SHOOK Albuterol (Proventil) 2.5 mg IH Q4HRT PRN PRN Reason: Shortness Of Breath Piperacillin Sod/Tazobactam Sod (Zosyn/Ns 3.375gm/50ml) 3.375 gm in 50 mls @ 100 mls/hr IV Q6HR KELLY; Protocol Last Admin: 02/27/18 10:09 Dose: 100 mls/hr Linezolid (Zyvox 600mg/300ml) 600 mg in 300 mls @ 300 mls/hr IV Q12HR KELLY; Protocol Last Admin: 02/27/18 13:46 Dose: 300 mls/hr Sodium Chloride (Nacl 0.9% 1000 Ml) 1,000 mls @ 125 mls/hr IV ONCE ONE Stop: 02/27/18 21:00 Morphine Sulfate (Morphine) 2 mg IV Q4H PRN PRN Reason: Pain, Moderate (4-6) Last Admin: 02/27/18 15:19 Dose: 2 mg Ondansetron HCl (Zofran) 4 mg IV Q8H PRN PRN Reason: Nausea And Vomiting Last Admin: 02/27/18 14:17 Dose: 4 mg Sodium Chloride (Sodium Chloride Flush Syringe 10 Ml) 10 ml IV BID KELLY Sodium Chloride (Sodium Chloride Flush Syringe 10 Ml) 10 ml IV PRN PRN PRN Reason: LINE FLUSH Review of Systems All systems: negative (10 point ROS performed and negative except for that listed in HPI) Exam Vital Signs Temp Pulse Resp BP Pulse Ox 98.3 F 112 H 18 116/87 100 02/27/18 06:01 02/27/18 06:01 02/27/18 06:01 02/27/18 06:01 02/27/18 06:01 Narrative exam: Gen: AAOx3. NAD. Looks older than stated age. ENT: no scleral icterus or conjunctival pallor CV: s1, s2+ Tachy Resp: even and unlabored Abd: soft, ND, mild TTP around ostomy and midline wound. Dehiscence of wound - baseline, wound base is clean and dry with evidence of granulation tissue. No necrotic tissue. Skin around wound is erythematous with excoriations but improving since last exam. Ileostomy and colostomy mucosa is pink. Minimal bilious stool in ileostomy bag mixed with contrast material. ext: no c/c/e. Thin extremities Results - Labs 02/27/18 06:27 02/27/18 06:27 Abnormal lab results 02/27/18 02/27/18 02/27/18 Range/Units 06:27 06:27 09:15 WBC 11.9 H (4.5-11.0) K/mm3 Hgb 11.6 L (11.8-15.2) gm/dl MCV 82 L (84-94) fl MCH 27 L (28-32) pg RDW 16.9 H (13.2-15.2) % Plt Count 457 H (140-440) K/mm3 Lymph % (Auto) 5.9 L (13.4-35.0) % [place] % (Auto) 8.6 H (0.0-7.3) % Lymph # 0.7 L (1.2-5.4) K/mm3 [place] # 1.0 H (0.0-0.8) K/mm3 Seg Neutrophils % 84.7 H (40.0-70.0) % Seg Neutrophils # 10.0 H (1.8-7.7) K/mm3 Chloride 96.4 L (98-107) mmol/L Creatinine 0.7 L (0.8-1.5) mg/dL Glucose 170 H (75-100) mg/dL ALT < 5 L (7-56) units/L Albumin 2.9 L (3.9-5) g/dL Lipase 66 H 65 H (13-60) units/L Ur Specific [place] (1.003-1.030) 02/27/18 Range/Units 12:43 WBC (4.5-11.0) K/mm3 Hgb (11.8-15.2) gm/dl MCV (84-94) fl MCH (28-32) pg RDW (13.2-15.2) % Plt Count (140-440) K/mm3 Lymph % (Auto) (13.4-35.0) % [place] % (Auto) (0.0-7.3) % Lymph # (1.2-5.4) K/mm3 [place] # (0.0-0.8) K/mm3 Seg Neutrophils % (40.0-70.0) % Seg Neutrophils # (1.8-7.7) K/mm3 Chloride (98-107) mmol/L Creatinine (0.8-1.5) mg/dL Glucose (75-100) mg/dL ALT (7-56) units/L Albumin (3.9-5) g/dL Lipase (13-60) units/L Ur Specific [place] 1.060 H (1.003-1.030) Diabetes panel 02/27/18 Range/Units 06:27 Sodium 137 (137-145) mmol/L Potassium 4.0 (3.6-5.0) mmol/L Chloride 96.4 L (98-107) mmol/L Carbon Dioxide 26 (22-30) mmol/L BUN 14 (9-20) mg/dL Creatinine 0.7 L (0.8-1.5) mg/dL Glucose 170 H (75-100) mg/dL Calcium 8.8 (8.4-10.2) mg/dL AST 10 (5-40) units/L ALT < 5 L (7-56) units/L Alkaline Phosphatase 129 (35-129) units/L Total Protein 6.8 (6.3-8.2) g/dL Albumin 2.9 L (3.9-5) g/dL Calcium panel 02/27/18 Range/Units 06:27 Calcium 8.8 (8.4-10.2) mg/dL Albumin 2.9 L (3.9-5) g/dL Pituitary panel 02/27/18 Range/Units 06:27 Sodium 137 (137-145) mmol/L Potassium 4.0 (3.6-5.0) mmol/L Chloride 96.4 L (98-107) mmol/L Carbon Dioxide 26 (22-30) mmol/L BUN 14 (9-20) mg/dL Creatinine 0.7 L (0.8-1.5) mg/dL Glucose 170 H (75-100) mg/dL Calcium 8.8 (8.4-10.2) mg/dL Adrenal panel 02/27/18 Range/Units 06:27 Sodium 137 (137-145) mmol/L Potassium 4.0 (3.6-5.0) mmol/L Chloride 96.4 L (98-107) mmol/L Carbon Dioxide 26 (22-30) mmol/L BUN 14 (9-20) mg/dL Creatinine 0.7 L (0.8-1.5) mg/dL Glucose 170 H (75-100) mg/dL Calcium 8.8 (8.4-10.2) mg/dL Total Bilirubin 0.20 (0.1-1.2) mg/dL AST 10 (5-40) units/L ALT < 5 L (7-56) units/L Alkaline Phosphatase 129 (35-129) units/L Total Protein 6.8 (6.3-8.2) g/dL Albumin 2.9 L (3.9-5) g/dL - Imaging CT scan - abdomen: report reviewed, image reviewed CT scan - pelvis: report reviewed, image reviewed Assessment and Plan 48 yo M with 1. SIRs secondary to known wound infection 2. dehiscence and infection of midline abdominal wound 3. small intraabdominal fluid collections on CT 4. metastatic carcinoma of the appendix 5. malnutrition 6. Crohn's disease 7. Ileostomy and mucus fistula Plan: 1. Small fluid collections on CT are likely not significant and not the reasons for the patient's elevated WBC, tachycardia. Most likely related to known history of wound infection with G negative organisms on last admit. 2. resume abx 3. Reg diet with supplements 4. nutrition consult 5. wound care consult to replace vac and ostomy care 6. recommend pain management consult for patient's chronic abdominal pain 7. PRN pain control - would avoid IV narcotics and only give PO 8. repeat am labs 9. case management consult for disposition and dc planning. 10. ?hospice eval if patient is agreeable. Oncology consult may be helpful Thank you for this consultation, please call with questions or concerns.
[2018-02-27] MEDS: SODIUM CHLORIDE FLUSH SYRINGE 10 ML IV PRN (20:35)
[2018-02-27] MEDS: SODIUM CHLORIDE FLUSH SYRINGE 10 ML IV SCH (22:53)
[2018-02-28] MEDS: PERCOCET 5/325 PO PRN ×5 (01:08→22:56)
[2018-02-28] MEDS: ZOSYN/NS 3.375GM/50ML 3.375 GM/50 ML BAG IV SCH ×4 (03:03→19:35)
[2018-02-28] MEDS: SODIUM CHLORIDE FLUSH SYRINGE 10 ML IV PRN (05:46)
[2018-02-28] MEDS: ZYVOX 600MG/300ML 600 MG/300 ML BAG IV SCH (11:08)
[2018-02-28] MEDS: SODIUM CHLORIDE FLUSH SYRINGE 10 ML IV SCH ×2 (11:09→22:59)
--- NOTE | 2018-02-28 14:52 | Progress Note ---
Assessment and Plan Assessment and plan: Patient is a 47 yo man with a history of type 2 DM, hypertension, tobacco dependency, Crohn's disease followed by Dr. Mix, recurrent SBO who developed high grade obstruction and underwent Exploratory laparotomy, lysis of adhesions , ileocecectomy with primary anastomosis on 01/18/18. He did well on TPN then the pathology came back as adenocarcinoma, so he went back to OR on 01/28/18 for Exploratory laparotomy, lysis of adhesions, small bowel resection, right hemicolectomy, partial omentectomy, creation of end ileostomy and mucus fistula , application of wound vac. This created left ostial open/mucus fistula, open midline wound and right sided ileostomy. He did well and went home with home care becue Insurance did not cover SNF. Come to find out his insurance did not cover home health care without a co-pay which he could not afford. So, the wound became infected and he was re-admitted 02/10/18. He underwent Excisional debridement of infected abdominal wound on 02/13/18. He did well and was sent home. Now, he again come back with wound infection because he is unable to manage the wound vac. 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 He has never established outpatient Heme/Oncology care with Dr. Dai because he has repeated re-admission due to wound infection, most likely because his inability to care for the wound. -SIRS due to wound infection/abd wall cellulitis, ?abscess: treat with abx and consulted Surgery -patient requesting certain pain medication for symptoms, ,?secondary gain -Metastatic Carcinoma of the appendix: Consult Dr. 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 Follow-up on current diagnosis. Overnight uneventful. Patient denies any chest pain, shortness breath, nausea/vomiting or severe headaches. Imaging, nursing note, chart, labs and old chart reviewed. Discussed with patient. Hospitalist Physical - Physical exam Narrative exam: GEN: cachetic, ill appearing, NAD, Awake, Alert, Orientated HEENT: NCAT, EOMI, PERRL, OP Clear NECK: supple, no adenopathy, no thyromegaly, no JVD CVS/HEART: RRR, normal S1S2, pulses present bilaterally CHEST/LUNGS: CTA B, Symmetrical chest expansion, good air entry bilaterally GI/Abdomen: soft, 2 osteomies: right and left +bowel sounds, no guarding or rebound, surgical dsg clean and intact /Bladder: no suprapubic tenderness, no CVA or paraspinal tenderness EXT/Skin: no c/c/e, no obvious rash MSK: FROM x 4 Neuro: CN 2-12 grossly intact, no new focal deficits Psych: calm - Constitutional Vitals: Temp Pulse Resp BP Pulse Ox 98.6 F 81 20 114/82 97 02/28/18 08:21 02/28/18 08:21 02/28/18 08:21 02/28/18 08:21 02/28/18 08:21 Results - Labs CBC & Chem 7: 02/27/18 06:27 02/27/18 06:27 Labs: Laboratory Last Values WBC 11.9 K/mm3 (4.5-11.0) H 02/27/18 06:27 RBC 4.34 M/mm3 (3.65-5.03) 02/27/18 06:27 Hgb 11.6 gm/dl (11.8-15.2) L 02/27/18 06:27 Hct 35.8 % (35.5-45.6) 02/27/18 06:27 MCV 82 fl (84-94) L 02/27/18 06:27 MCH 27 pg (28-32) L 02/27/18 06:27 MCHC 33 % (32-34) 02/27/18 06:27 RDW 16.9 % (13.2-15.2) H 02/27/18 06:27 Plt Count 457 K/mm3 (140-440) H 02/27/18 06:27 Lymph % (Auto) 5.9 % (13.4-35.0) L 02/27/18 06:27 [place] % (Auto) 8.6 % (0.0-7.3) H 02/27/18 06:27 Eos % (Auto) 0.4 % (0.0-4.3) 02/27/18 06:27 Baso % (Auto) 0.4 % (0.0-1.8) 02/27/18 06:27 Lymph # 0.7 K/mm3 (1.2-5.4) L 02/27/18 06: [place] # 1.0 K/mm3 (0.0-0.8) H 02/27/18 06: Eos # 0.0 K/mm3 (0.0-0.4) 02/27/18 06: Baso # 0.1 K/mm3 (0.0-0.1) 02/27/18 06:27 Seg Neutrophils % 84.7 % (40.0-70.0) H 02/27/18 06: Seg Neutrophils # 10.0 K/mm3 (1.8-7.7) H 02/27/18 06: PT 13.3 Sec. (12.2-14.9) 02/27/18 09:15 INR 0.96 (0.87-1.13) 02/27/18 09:15 APTT 31.4 Sec. (24.2-36.6) 02/27/18 09:15 Sodium 137 mmol/L (137-145) 02/27/18 06: Potassium 4.0 mmol/L (3.6-5.0) 02/27/18 06: Chloride 96.4 mmol/L (98-107) L 02/27/18 06: Carbon Dioxide 26 mmol/L (22-30) 02/27/18 06: Anion Gap 19 mmol/L 02/27/18 06: BUN 14 mg/dL (9-20) 02/27/18 06:27 Creatinine 0.7 mg/dL (0.8-1.5) L 02/27/18 06:27 Estimated GFR > 60 ml/min 02/27/18 06:27 BUN/Creatinine Ratio 20 % 02/27/18 06: Glucose 170 mg/dL (75-100) H 02/27/18 06:27 POC Glucose 152 (70-105) H 02/28/18 12:09 Lactic Acid 1.30 mmol/L (0.7-2.0) 02/27/18 09:15 Calcium 8.8 mg/dL (8.4-10.2) 02/27/18 06:27 Total Bilirubin 0.20 mg/dL (0.1-1.2) 02/27/18 06:27 AST 10 units/L (5-40) 02/27/18 06: ALT < 5 units/L (7-56) L 02/27/18 06:27 Alkaline Phosphatase 129 units/L (35-129) 02/27/18 06:27 Troponin T < 0.010 ng/mL (0.00-0.029) 02/27/18 09:15 Total Protein 6.8 g/dL (6.3-8.2) 02/27/18 06: Albumin 2.9 g/dL (3.9-5) L 02/27/18 06: Albumin/Globulin Ratio 0.7 % 02/27/18 06: Lipase 65 units/L (13-60) H 02/27/18 09:15 Urine Color Yellow (Yellow) 02/27/18 12:43 Urine Turbidity Clear (Clear) 02/27/18 12:43 Urine pH 5.0 (5.0-7.0) 02/27/18 12:43 Ur Specific [place] 1.060 (1.003-1.030) H 02/27/18 12:43 Urine Protein <15 mg/dl mg/dL (Negative) 02/27/18 12:43 Urine Glucose (UA) Neg mg/dL (Negative) 02/27/18 12:43 Urine Ketones Neg mg/dL (Negative) 02/27/18 12:43 Urine Blood Neg (Negative) 02/27/18 12:43 Urine Nitrite Neg (Negative) 02/27/18 12:43 Urine Bilirubin Neg (Negative) 02/27/18 12:43 Urine Urobilinogen < 2.0 mg/dL (<2.0) 02/27/18 12:43 Ur Leukocyte Esterase Neg (Negative) 02/27/18 12:43 Urine WBC (Auto) 2.0 /HPF (0.0-6.0) 02/27/18 12:43 Urine RBC (Auto) 1.0 /HPF (0.0-6.0) 02/27/18 12:43 U Epithel Cells (Auto) < 1.0 /HPF (0-13.0) 02/27/18 12:43 Urine Mucus 1+ /HPF 02/27/18 12:43
--- NOTE | 2018-02-28 16:45 | Progress Note ---
Assessment and Plan Assessment: 1) SIRS: present on admission with tachycardia and mild leukocytosis; etiology ? unclear ? persistent intra-abdominal infection 2) Recent Wound dehiscence likely due to infected surgical abdominal wound. Superficial wound culture grew Escherichia coli, Enterococcus faecium (R to PCN , sensitive to vanco). s/p excisional wound debridement on 02/13/18. 3) Intra-abdominal abscess: repeat CT showed still 2-3cm collection 4) Crohn's disease with newly diagnosed colon cancer. -s/p exploratory laparotomy, ileocecectomy for small bowel obstruction on . -s/p exploratory laparotomy, small bowel resection, right hemicolectomy, creation of ileostomy and mucous fistula 01/28/18. Recommendations: -continue zosyn and zyvox for now -wound care -check CRP -upon discharge will extend levaquin 500 mg PO qday and zyvox 600 mg po q12h until 03/04 Thank you for your consultation, will follow up with you. Jenniffer Lujan MD Infectious Diseases Specialist [facility] ([facility]) M [phone] O [phone] Subjective Date of service: 02/28/18 Principal diagnosis: SIRS Interval history: Feels better, pain is better. No fever. Microbiology: Blood cultures: 02/10 neg 02/27 ngtd Urine cultures: 02/10 skin gabriela Wound cultures: 02/10 E coli and Enterococcus faecium Urine culture: 02/27 neg Current Antimicrobials: Zosyn Zyvox Objective - Exam Narrative Exam: General appearance: Alert in NAD, conversant Eyes: anicteric sclerae, moist conjunctivae; no lid-lag; PERRLA HENT: Atraumatic; oropharynx clear with moist mucous membranes and no mucosal ulcerations/no oral thrush; normal hard and soft palate. Normal external ears. Neck: Trachea midline; supple, no thyromegaly or lymphadenopathy Lungs: CTA, with normal respiratory effort and no intercostal retractions CV: RRR, no murmurs Abdomen: Soft, ileostomy, midline wound now with a wound VAC Extremities: No peripheral edema or extremity lymphadenopathy Skin: Normal temperature, turgor and texture; no rash, ulcers or subcutaneous nodules Psych: Appropriate affect, alert and oriented to person, place and time. Neuro: alert and oriented x 3. Moving all extermities Lines: No CVL / PICC - Constitutional Vitals: Vital Signs Temp Pulse Resp BP Pulse Ox 98.6 F 81 20 114/82 97 02/28/18 08:21 02/28/18 08:21 02/28/18 08:21 02/28/18 08:21 02/28/18 08:21 Temperature -Last 24 Hours Temperature 98.6 F Temperature 98.4 F - Labs CBC & Chem 7: 02/27/18 06:27 02/27/18 06:27 Labs: Abnormal lab results 02/27/18 02/27/18 02/28/18 Range/Units 16:08 21:27 06:08 POC Glucose 137 H 120 H 106 H (70-105) 02/28/18 Range/Units 12:09 POC Glucose 152 H (70-105)
--- NOTE | 2018-02-28 17:17 | Progress Note ---
Assessment and Plan 48 yo M with 1. SIRs secondary to known wound infection 2. dehiscence and infection of midline abdominal wound 3. small intraabdominal fluid collections on CT 4. metastatic carcinoma of the appendix 5. malnutrition 6. Crohn's disease 7. Ileostomy and mucus fistula Plan: 1. abx per ID 2. Reg diet with supplements 3. nutrition consult 4. continue wound vac per wound care nursing. Will need to reevaluate ostomy appliance for ileostomy, may need ostomy belt to hold it in place better and prevent leaking. Will discuss with wound care nurse. 5. recommend pain management consult for patient's chronic abdominal pain 6. PRN pain control - would avoid IV narcotics and only give PO 7. repeat am labs 8. case management consult for disposition and dc planning. Thank you for this consultation, please call with questions or concerns. Subjective Date of service: 02/28/18 Narrative: Pt seen and examined. c/o pain in right abdominal side wall. States the ileostomy bag leaked several times overnight and had to be replaced multiple times. The midline abdominal wound vac was placed by wound care nurse earlier today. No f/c, cp, sob. Tolerating diet. Objective Vital Signs - 12hr 02/28/18 02/28/18 02/28/18 07:15 08:21 09:18 Temperature 98.6 F Pulse Rate 81 Respiratory 18 20 Rate Blood Pressure 114/82 O2 Sat by Pulse 97 100 Oximetry - General physical appearance Narrative Exam: Gen: AAOx3. NAD CV: S1, S2+ resp: even and unlabored Abd: soft, ND, NT. vac in place with good seal. Ileostomy pink with green stool in bag, no leaking around bag at this time. Mucus fistula pink. Ext: no c/c/e - Labs 02/27/18 06:27 02/27/18 06:27
[2018-02-28] MEDS: ZYVOX PO SCH (22:56)
[2018-03-01] MEDS: ZOSYN/NS 3.375GM/50ML 3.375 GM/50 ML BAG IV SCH ×4 (00:53→18:03)
[2018-03-01] MEDS: SODIUM CHLORIDE FLUSH SYRINGE 10 ML IV PRN ×2 (00:54→05:15)
[2018-03-01] MEDS: PERCOCET 5/325 PO PRN ×4 (05:13→23:12)
[2018-03-01] MEDS: ZOFRAN IV PRN ×2 (05:18→17:09)
[2018-03-01] MEDS: ZYVOX PO SCH ×2 (11:02→23:22)
[2018-03-01] MEDS: SODIUM CHLORIDE FLUSH SYRINGE 10 ML IV SCH ×2 (11:04→23:14)
--- NOTE | 2018-03-01 11:36 | Hem/Onc Progress Note ---
Assessment and Plan Patient has appendiceal CA with a very complicated postoperative course. He is aggressively being treated for infection and wound care. Next At this point he needs to heal and I will see him as outpatient. Once he is healed considerably, we will get a PET scan and also a possible evaluation from [place] for consideration of postop chemotherapy. He will be a poor candidate for chemotherapy currently because of his current situation of healing issues, nutritional issues and infection. 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 He is s/p Exploratory laparotomy, lysis of adhesions, small bowel resection, right hemicolectomy, partial omentectomy, creation of end ileostomy and mucus fistula, application of wound vac on 01/28/18 and Exploratory laparotomy, lysis of adhesions, ileocecectomy with primary anastomosis on 01/17/18. The patient has had long protracted hospital courses and was recently readmitted to the hospital for an infection of his midline wound from exposure to stool from his ileostomy. he recently was found to have ecoli and enterococcus and the patient was discharged with oral antibiotics per ID. He was also being seen the wound care clinic multiple times a week for wound care, vac care, and ostomy care. There were multiple times the patient was taught how to care for his ostomy and prevent leakage into the wound. He was also advised not to remove the wound vac on his own at home. He was offered home care and [facility] placement however, this is not covered by his insurance and the patient does not have the financial means to support this on his own. The patient was seen in the wound care clinic most recently on 02/26/18 at had a superficial debridement of the midline wound by Dr. Hylton and wound vac and ostomy appliance change by wound care nurse. The patient states that he went home and 2 hour after placement of ostomy appliance, it started to leak towards the midline wound. He denies doing anything strenuous and does not know why the seal did not last. Furthermore, he states he has tried everything to get a good seal but there continues to be leakage around the ileostomy. This was not an issue when he was hospitalized but seems to occur frequently when he goes home. Objective - Constitutional Vitals: Last Vital Signs Temp 97.3 F L 03/01/18 07:19 Pulse 78 03/01/18 07:19 Resp 18 03/01/18 07:19 BP 124/84 03/01/18 07:19 Pulse Ox 98 03/01/18 07:19 Pain Intensity (0-10): denies any pain Performance status: 3-limited selfcare - Respiratory Respiratory effort: Positive: normal Respiratory: bilateral: diminished - Cardiovascular Rhythm: regular Extremities: No edema - Gastrointestinal General gastrointestinal: Present: soft (wound vac. ileostomy present. ) - Labs Lab Results: Laboratory Results - last 24 hr 02/28/18 02/28/18 02/28/18 12:09 16:38 18:21 POC Glucose 152 H 113 H C-Reactive Protein 3.10 H 02/28/18 03/01/18 22:04 06:34 POC Glucose 104 97 C-Reactive Protein
--- NOTE | 2018-03-01 15:27 | Progress Note ---
Assessment and Plan Assessment: 1) SIRS: better ; etiology ? unclear ? persistent intra-abdominal infection. CRP =3.1 2) Recent Wound dehiscence likely due to infected surgical abdominal wound. Superficial wound culture grew Escherichia coli, Enterococcus faecium (R to PCN , sensitive to vanco). s/p excisional wound debridement on 02/13/18. 3) Intra-abdominal abscess: repeat CT showed still 2-3cm collection 4) Crohn's disease with newly diagnosed colon cancer. -s/p exploratory laparotomy, ileocecectomy for small bowel obstruction on . -s/p exploratory laparotomy, small bowel resection, right hemicolectomy, creation of ileostomy and mucous fistula 01/28/18. Recommendations: -continue zosyn and zyvox for now -wound care -upon discharge will extend levaquin 500 mg PO qday and zyvox 600 mg po q12h until 03/04 I am signing off Thank you for your consultation, will follow up with you. Jenniffer Lujan MD Infectious Diseases Specialist [facility] ([facility]) M [phone] O [phone] Subjective Date of service: 03/01/18 Principal diagnosis: SIRS Interval history: Feels better, pain is better. No fever. Microbiology: Blood cultures: 02/10 neg 02/27 ngtd Urine cultures: 02/10 skin gabriela Wound cultures: 02/10 E coli and Enterococcus faecium Urine culture: 02/27 neg Current Antimicrobials: Zosyn Zyvox Objective - Exam Narrative Exam: General appearance: Alert in NAD, conversant Eyes: anicteric sclerae, moist conjunctivae; no lid-lag; PERRLA HENT: Atraumatic; oropharynx clear with moist mucous membranes and no mucosal ulcerations/no oral thrush; normal hard and soft palate. Normal external ears. Neck: Trachea midline; supple, no thyromegaly or lymphadenopathy Lungs: CTA, with normal respiratory effort and no intercostal retractions CV: RRR, no murmurs Abdomen: Soft, ileostomy, midline wound now with a wound VAC Extremities: No peripheral edema or extremity lymphadenopathy Skin: Normal temperature, turgor and texture; no rash, ulcers or subcutaneous nodules Psych: Appropriate affect, alert and oriented to person, place and time. Neuro: alert and oriented x 3. Moving all extermities Lines: No CVL / PICC - Constitutional Vitals: Vital Signs Temp Pulse Resp BP Pulse Ox 97.3 F L 78 18 124/84 98 03/01/18 07:19 03/01/18 07:19 03/01/18 07:19 03/01/18 07:19 03/01/18 07:19 Temperature -Last 24 Hours Temperature 97.3 F Temperature 98.4 F Temperature 98.7 F Temperature 98.7 F - Labs CBC & Chem 7: 02/27/18 06:27 02/27/18 06:27 Labs: Abnormal lab results 02/28/18 02/28/18 03/01/18 Range/Units 16:38 18:21 11:58 POC Glucose 113 H 112 H (70-105) C-Reactive Protein 3.10 H (0.00-1.30) mg/dL
--- NOTE | 2018-03-01 15:28 | Progress Note ---
Assessment and Plan 48 yo M with 1. SIRs secondary to known wound infection 2. dehiscence and infection of midline abdominal wound 3. small intraabdominal fluid collections on CT 4. metastatic carcinoma of the appendix 5. malnutrition 6. Crohn's disease 7. Ileostomy and mucus fistula Plan: 1. abx per ID, switch to PO at dc per ID recs 2. Reg diet with supplements 3. continue wound vac per wound care nursing. 4. ostomy appliance reevaluated by wound care and new teaching done and appliance applied. 5. recommend pain management consult for patient's chronic abdominal pain 6. PRN pain control - would avoid IV narcotics and only give PO 7. ok for dc from surgery standpoint if ostomy appliance remains intact. Has follow up scheduled in wound care clinic on Sunday. Thank you for this consultation, please call with questions or concerns. Subjective Date of service: 03/01/18 Narrative: Pt seen and examined. No complaints. No f/c, cp, sob. Had some nausea this am which has resolved. Objective Vital Signs - 12hr 03/01/18 07:19 Temperature 97.3 F L Pulse Rate 78 Respiratory 18 Rate Blood Pressure 124/84 O2 Sat by Pulse 98 Oximetry - General physical appearance Narrative Exam: Gen: AAOx3. NAD Abd: soft, NT, ND. ileostomy with ostomy appliance intact without leakage. Mucus fistula mucosa pink. abdominal wound vac in place with good seal. - Labs 02/27/18 06:27 02/27/18 06:27
[2018-03-01] MEDS ORDERED: AMBIEN PO PRN ×2 (16:02→16:04)
--- NOTE | 2018-03-01 16:05 | Progress Note ---
Assessment and Plan Assessment and plan: Patient is a 47 yo man with a history of type 2 DM, hypertension, tobacco dependency, Crohn's disease followed by Dr. Mix, recurrent SBO who developed high grade obstruction and underwent Exploratory laparotomy, lysis of adhesions , ileocecectomy with primary anastomosis on 01/18/18. He did well on TPN then the pathology came back as adenocarcinoma, so he went back to OR on 01/28/18 for Exploratory laparotomy, lysis of adhesions, small bowel resection, right hemicolectomy, partial omentectomy, creation of end ileostomy and mucus fistula , application of wound vac. This created left ostial open/mucus fistula, open midline wound and right sided ileostomy. He did well and went home with home care becue Insurance did not cover SNF. Come to find out his insurance did not cover home health care without a co-pay which he could not afford. So, the wound became infected and he was re-admitted 02/10/18. He underwent Excisional debridement of infected abdominal wound on 02/13/18. He did well and was sent home. Now, he again come back with wound infection because he is unable to manage the wound vac. 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 He has never established outpatient Heme/Oncology care with Dr. Dai because he has repeated re-admission due to wound infection, most likely because his inability to care for the wound. -SIRS due to wound infection/abd wall cellulitis, ?abscess: treat with abx and consulted Surgery -patient requesting certain pain medication for symptoms, ,?secondary gain -Metastatic Carcinoma of the appendix: Consult Dr. 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 History Interval history: Patient was seen and examined. Follow-up on current diagnosis. Overnight uneventful. Patient denies any chest pain, shortness breath, nausea/vomiting or severe headaches. Imaging, nursing note, chart, labs and old chart reviewed. Discussed with patient. Hospitalist Physical - Physical exam Narrative exam: GEN: cachetic, ill appearing, NAD, Awake, Alert, Orientated HEENT: NCAT, EOMI, PERRL, OP Clear NECK: supple, no adenopathy, no thyromegaly, no JVD CVS/HEART: RRR, normal S1S2, pulses present bilaterally CHEST/LUNGS: CTA B, Symmetrical chest expansion, good air entry bilaterally GI/Abdomen: soft, 2 osteomies: right and left +bowel sounds, no guarding or rebound, surgical dsg clean and intact /Bladder: no suprapubic tenderness, no CVA or paraspinal tenderness EXT/Skin: no c/c/e, no obvious rash MSK: FROM x 4 Neuro: CN 2-12 grossly intact, no new focal deficits Psych: calm - Constitutional Vitals: Temp Pulse Resp BP Pulse Ox 97.3 F L 78 18 124/84 98 03/01/18 07:19 03/01/18 07:19 03/01/18 07:19 03/01/18 07:19 03/01/18 07:19 Results - Labs CBC & Chem 7: 02/27/18 06:27 02/27/18 06:27 Labs: Laboratory Last Values WBC 11.9 K/mm3 (4.5-11.0) H 02/27/18 06:27 RBC 4.34 M/mm3 (3.65-5.03) 02/27/18 06:27 Hgb 11.6 gm/dl (11.8-15.2) L 02/27/18 06:27 Hct 35.8 % (35.5-45.6) 02/27/18 06:27 MCV 82 fl (84-94) L 02/27/18 06:27 MCH 27 pg (28-32) L 02/27/18 06:27 MCHC 33 % (32-34) 02/27/18 06:27 RDW 16.9 % (13.2-15.2) H 02/27/18 06:27 Plt Count 457 K/mm3 (140-440) H 02/27/18 06:27 Lymph % (Auto) 5.9 % (13.4-35.0) L 02/27/18 06:27 Riley % (Auto) 8.6 % (0.0-7.3) H 02/27/18 06:27 Eos % (Auto) 0.4 % (0.0-4.3) 02/27/18 06:27 Baso % (Auto) 0.4 % (0.0-1.8) 02/27/18 06: Lymph # 0.7 K/mm3 (1.2-5.4) L 02/27/18 06: Riley # 1.0 K/mm3 (0.0-0.8) H 02/27/18 06: Eos # 0.0 K/mm3 (0.0-0.4) 02/27/18 06: Baso # 0.1 K/mm3 (0.0-0.1) 02/27/18 06: Seg Neutrophils % 84.7 % (40.0-70.0) H 02/27/18 06: Seg Neutrophils # 10.0 K/mm3 (1.8-7.7) H 02/27/18 06:27 PT 13.3 Sec. (12.2-14.9) 02/27/18 09:15 INR 0.96 (0.87-1.13) 02/27/18 09:15 APTT 31.4 Sec. (24.2-36.6) 02/27/18 09:15 Sodium 137 mmol/L (137-145) 02/27/18 06: Potassium 4.0 mmol/L (3.6-5.0) 02/27/18 06: Chloride 96.4 mmol/L (98-107) L 02/27/18 06:27 Carbon Dioxide 26 mmol/L (22-30) 02/27/18 06:27 Anion Gap 19 mmol/L 02/27/18 06:27 BUN 14 mg/dL (9-20) 02/27/18 06:27 Creatinine 0.7 mg/dL (0.8-1.5) L 02/27/18 06:27 Estimated GFR > 60 ml/min 02/27/18 06:27 BUN/Creatinine Ratio 20 % 02/27/18 06:27 Glucose 170 mg/dL (75-100) H 02/27/18 06:27 POC Glucose 112 (70-105) H 03/01/18 11:58 Lactic Acid 1.30 mmol/L (0.7-2.0) 02/27/18 09:15 Calcium 8.8 mg/dL (8.4-10.2) 02/27/18 06:27 Total Bilirubin 0.20 mg/dL (0.1-1.2) 02/27/18 06:27 AST 10 units/L (5-40) 02/27/18 06:27 ALT < 5 units/L (7-56) L 02/27/18 06:27 Alkaline Phosphatase 129 units/L (35-129) 02/27/18 06:27 Troponin T < 0.010 ng/mL (0.00-0.029) 02/27/18 09:15 C-Reactive Protein 3.10 mg/dL (0.00-1.30) H 02/28/18 18:21 Total Protein 6.8 g/dL (6.3-8.2) 02/27/18 06:27 Albumin 2.9 g/dL (3.9-5) L 02/27/18 06:27 Albumin/Globulin Ratio 0.7 % 02/27/18 06: Lipase 65 units/L (13-60) H 02/27/18 09:15 Urine Color Yellow (Yellow) 02/27/18 12:43 Urine Turbidity Clear (Clear) 02/27/18 12:43 Urine pH 5.0 (5.0-7.0) 02/27/18 12:43 Ur Specific [place] 1.060 (1.003-1.030) H 02/27/18 12:43 Urine Protein <15 mg/dl mg/dL (Negative) 02/27/18 12:43 Urine Glucose (UA) Neg mg/dL (Negative) 02/27/18 12:43 Urine Ketones Neg mg/dL (Negative) 02/27/18 12:43 Urine Blood Neg (Negative) 02/27/18 12:43 Urine Nitrite Neg (Negative) 02/27/18 12:43 Urine Bilirubin Neg (Negative) 02/27/18 12:43 Urine Urobilinogen < 2.0 mg/dL (<2.0) 02/27/18 12:43 Ur Leukocyte Esterase Neg (Negative) 02/27/18 12:43 Urine WBC (Auto) 2.0 /HPF (0.0-6.0) 02/27/18 12:43 Urine RBC (Auto) 1.0 /HPF (0.0-6.0) 02/27/18 12:43 U Epithel Cells (Auto) < 1.0 /HPF (0-13.0) 02/27/18 12:43 Urine Mucus 1+ /HPF 02/27/18 12:43
[2018-03-01] MEDS: PEPCID PO SCH (19:04)
[2018-03-01] MEDS: LACTINEX PO SCH (23:13)
[2018-03-02] MEDS: ZOFRAN IV PRN ×3 (00:09→11:51)
[2018-03-02] MEDS: ZOSYN/NS 3.375GM/50ML 3.375 GM/50 ML BAG IV SCH ×4 (00:17→17:56)
[2018-03-02] MEDS: SODIUM CHLORIDE FLUSH SYRINGE 10 ML IV PRN ×2 (00:18→05:27)
[2018-03-02] MEDS: PERCOCET 5/325 PO PRN ×3 (05:24→17:55)
[2018-03-02] MEDS: ZYVOX PO SCH ×2 (10:03→21:48)
[2018-03-02] MEDS: SODIUM CHLORIDE FLUSH SYRINGE 10 ML IV SCH ×2 (10:03→21:49)
[2018-03-02] MEDS: PEPCID PO SCH (10:03)
[2018-03-02] MEDS: LACTINEX PO SCH ×2 (10:03→21:48)
--- NOTE | 2018-03-02 13:31 | Progress Note ---
Assessment and Plan Assessment and plan: Patient is a 47 yo man with a history of type 2 DM, hypertension, tobacco dependency, Crohn's disease followed by Dr. Mix, recurrent SBO who developed high grade obstruction and underwent Exploratory laparotomy, lysis of adhesions , ileocecectomy with primary anastomosis on 01/18/18. He did well on TPN then the pathology came back as adenocarcinoma, so he went back to OR on 01/28/18 for Exploratory laparotomy, lysis of adhesions, small bowel resection, right hemicolectomy, partial omentectomy, creation of end ileostomy and mucus fistula , application of wound vac. This created left ostial open/mucus fistula, open midline wound and right sided ileostomy. He did well and went home with home care becue Insurance did not cover SNF. Come to find out his insurance did not cover home health care without a co-pay which he could not afford. So, the wound became infected and he was re-admitted 02/10/18. He underwent Excisional debridement of infected abdominal wound on 02/13/18. He did well and was sent home. Now, he again come back with wound infection because he is unable to manage the wound vac. 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 He has never established outpatient Heme/Oncology care with Dr. Dai because he has repeated re-admission due to wound infection, most likely because his inability to care for the wound. -SIRS due to wound infection/abd wall cellulitis, ?abscess: treat with abx and consulted Surgery -patient requesting certain pain medication for symptoms, ?secondary gain -Metastatic Carcinoma of the appendix: Consult Dr. 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 03/02/18: Leakage started again. When I asked Mr. eRnee does he touch the area/ wound vac or ostomy bag, he fabricated and said he doesn't touch them. However, doing my vist today, I observed that he touched the surgical area/ostomy bag/ seal and wound vac at least 4 times, I do not think he is doing it unconsciously. I believe he is doing it intentionally. History Interval history: Patient was seen and examined. Follow-up on current diagnosis. Overnight uneventful. Patient denies any chest pain, shortness breath, nausea/vomiting or severe headaches. Imaging, nursing note, chart, labs and old chart reviewed. Discussed with patient. Hospitalist Physical - Physical exam Narrative exam: GEN: cachetic, ill appearing, NAD, Awake, Alert, Orientated HEENT: NCAT, EOMI, PERRL, OP Clear NECK: supple, no adenopathy, no thyromegaly, no JVD CVS/HEART: RRR, normal S1S2, pulses present bilaterally CHEST/LUNGS: CTA B, Symmetrical chest expansion, good air entry bilaterally GI/Abdomen: soft, 2 osteomies: right and left +bowel sounds, no guarding or rebound, surgical dsg clean and intact /Bladder: no suprapubic tenderness, no CVA or paraspinal tenderness EXT/Skin: no c/c/e, no obvious rash MSK: FROM x 4 Neuro: CN 2-12 grossly intact, no new focal deficits Psych: calm - Constitutional Vitals: Temp Pulse Resp BP Pulse Ox 99.0 F 84 20 120/82 98 03/02/18 08:07 03/02/18 08:08 03/02/18 11:51 03/02/18 08:07 03/02/18 08:08 General appearance: Present: mild distress Results - Labs CBC & Chem 7: 02/27/18 06:27 02/27/18 06:27 Labs: Laboratory Last Values WBC 11.9 K/mm3 (4.5-11.0) H 02/27/18 06:27 RBC 4.34 M/mm3 (3.65-5.03) 02/27/18 06:27 Hgb 11.6 gm/dl (11.8-15.2) L 02/27/18 06:27 Hct 35.8 % (35.5-45.6) 02/27/18 06:27 MCV 82 fl (84-94) L 02/27/18 06:27 MCH 27 pg (28-32) L 02/27/18 06:27 MCHC 33 % (32-34) 02/27/18 06:27 RDW 16.9 % (13.2-15.2) H 02/27/18 06:27 Plt Count 457 K/mm3 (140-440) H 02/27/18 06:27 Lymph % (Auto) 5.9 % (13.4-35.0) L 02/27/18 06: [place] % (Auto) 8.6 % (0.0-7.3) H 02/27/18 06: Eos % (Auto) 0.4 % (0.0-4.3) 02/27/18 06: Baso % (Auto) 0.4 % (0.0-1.8) 02/27/18 06: Lymph # 0.7 K/mm3 (1.2-5.4) L 02/27/18 06: [place] # 1.0 K/mm3 (0.0-0.8) H 02/27/18 06: Eos # 0.0 K/mm3 (0.0-0.4) 02/27/18 06: Baso # 0.1 K/mm3 (0.0-0.1) 02/27/18 06: Seg Neutrophils % 84.7 % (40.0-70.0) H 02/27/18 06: Seg Neutrophils # 10.0 K/mm3 (1.8-7.7) H 02/27/18 06: PT 13.3 Sec. (12.2-14.9) 02/27/18 09:15 INR 0.96 (0.87-1.13) 02/27/18 09:15 APTT 31.4 Sec. (24.2-36.6) 02/27/18 09:15 Sodium 137 mmol/L (137-145) 02/27/18 06: Potassium 4.0 mmol/L (3.6-5.0) 02/27/18 06: Chloride 96.4 mmol/L (98-107) L 02/27/18 06: Carbon Dioxide 26 mmol/L (22-30) 02/27/18 06: Anion Gap 19 mmol/L 02/27/18 06:27 BUN 14 mg/dL (9-20) 02/27/18 06: Creatinine 0.7 mg/dL (0.8-1.5) L 02/27/18 06: Estimated GFR > 60 ml/min 02/27/18 06:27 BUN/Creatinine Ratio 20 % 02/27/18 06:27 Glucose 170 mg/dL (75-100) H 02/27/18 06:27 POC Glucose 103 (70-105) 03/02/18 11:34 Lactic Acid 1.30 mmol/L (0.7-2.0) 02/27/18 09:15 Calcium 8.8 mg/dL (8.4-10.2) 02/27/18 06:27 Total Bilirubin 0.20 mg/dL (0.1-1.2) 02/27/18 06:27 AST 10 units/L (5-40) 02/27/18 06:27 ALT < 5 units/L (7-56) L 02/27/18 06: Alkaline Phosphatase 129 units/L (35-129) 02/27/18 06: Troponin T < 0.010 ng/mL (0.00-0.029) 02/27/18 09:15 C-Reactive Protein 3.10 mg/dL (0.00-1.30) H 02/28/18 18:21 Total Protein 6.8 g/dL (6.3-8.2) 02/27/18 06:27 Albumin 2.9 g/dL (3.9-5) L 02/27/18 06: Albumin/Globulin Ratio 0.7 % 02/27/18 06: Lipase 65 units/L (13-60) H 02/27/18 09:15 Urine Color Yellow (Yellow) 02/27/18 12:43 Urine Turbidity Clear (Clear) 02/27/18 12:43 Urine pH 5.0 (5.0-7.0) 02/27/18 12:43 Ur Specific [place] 1.060 (1.003-1.030) H 02/27/18 12:43 Urine Protein <15 mg/dl mg/dL (Negative) 02/27/18 12:43 Urine Glucose (UA) Neg mg/dL (Negative) 02/27/18 12:43 Urine Ketones Neg mg/dL (Negative) 02/27/18 12:43 Urine Blood Neg (Negative) 02/27/18 12:43 Urine Nitrite Neg (Negative) 02/27/18 12:43 Urine Bilirubin Neg (Negative) 02/27/18 12:43 Urine Urobilinogen < 2.0 mg/dL (<2.0) 02/27/18 12:43 Ur Leukocyte Esterase Neg (Negative) 02/27/18 12:43 Urine WBC (Auto) 2.0 /HPF (0.0-6.0) 02/27/18 12:43 Urine RBC (Auto) 1.0 /HPF (0.0-6.0) 02/27/18 12:43 U Epithel Cells (Auto) < 1.0 /HPF (0-13.0) 02/27/18 12:43 Urine Mucus 1+ /HPF 02/27/18 12:43
--- NOTE | 2018-03-02 15:33 | Progress Note ---
Assessment and Plan 48 yo M with 1. SIRs secondary to known wound infection 2. dehiscence and infection of midline abdominal wound 3. small intraabdominal fluid collections on CT 4. metastatic carcinoma of the appendix 5. malnutrition 6. Crohn's disease 7. Ileostomy and mucus fistula Plan: 1. abx per ID, switch to PO at dc per ID recs 2. Reg diet with supplements 3. continue wound vac per wound care nursing. 4. recommend pain management consult for patient's chronic abdominal pain 5. PRN pain control - would avoid IV narcotics and only give PO Will observe patient today with new ostomy appliance, abdominal binder at all times, and home wound vac installed. Nursing instructed to document and trouble shoot issues with home vac as patient insists it is shutting off every 8 minutes. The patient often demonstrates that he has no control over his health and at this point, I stressed to the patient that he will need to take ownership of his condition and the fact that he has ostomies. I have mentioned to him that he will likely have ostomies for a long time if not for the remainder of his life. He will not become a candidate for reversal until his nutritional status improves, he heals his wounds, and is seen by outpatient oncology and has a plan from cancer standpoint. However, he cannot achieve this if he keeps coming back to the ER and wound care center multiple times a week for all of his wound care needs. He will need to be a more active participant in his medical/surgical care in order for him to become stronger and heal his wounds and make it to outpatient follow up with oncology. If he feels he does not want to take care of himself, then he will need to consider the option of hospice. He does have scheduled visits set up in the wound care center, with the next follow up on Sunday 03/04 for wound vac change. Dr. Fulton present during my evaluation. Thank you for this consultation, please call with questions or concerns. Subjective Date of service: 03/02/18 Narrative: I was called by nursing this am to informed me that the ileostomy bag was once again leaking. She states she noted the patient picking at the appliance. D/W Dr. Fulton who also noted the patient touching the vac and ileostomy appliance during his visit this am. The patient denies that he touching or picking at the dressings. The ileostomy appliance was placed by a skilled wound care nurse yesterday afternoon and had not leaked all night until suddenly this am the patient reported leaking from the same site. He also states the wound vac is "hissing" and doesn't feel sucked in. The patient cannot give any explanation as to why he feels the bag keeps leaking. He exhibits frustration when asked about what is causing the appliance to leak and then states to "just take it all off" regarding wound vac and ostomy appliances. He also states that the home wound vac will shut off every 8 minutes and shows the sign that it has a leak. The hospital wound vac has never shown a leak while he has been in the hospital and has a good seal at -125mmHG. Pt seen and examined. He has no complaints of f/c, cp, sob, n/v. His abdominal pain is well controlled. He is tolerating a diet. Objective Vital Signs - 12hr 03/02/18 03/02/18 03/02/18 08:07 08:08 08:44 Temperature 99.0 F Pulse Rate 86 84 Respiratory 16 20 Rate Blood Pressure 120/82 O2 Sat by Pulse 98 98 Oximetry 03/02/18 11:51 Temperature Pulse Rate Respiratory 20 Rate Blood Pressure O2 Sat by Pulse Oximetry - General physical appearance Narrative Exam: Gen: AAOx3. cachectic CV: S1, S2+ Resp: even and unlabored Abd: soft, NT, ND. RLQ ileostomy with stool leaking around appliance at 9' oclock position. Green stool in bag. The ostomy appliance was removed completely , ostomy mucosa is pink and the peristomal skin is unremarkable. The skin was cleansed and dried. Mastisol applied to the peristomal skin and once dry, eakins applied around the 9'oclock and 3'oclock positions around the stoma. A new one piece wafer was cut to size and applied, pressed firmly against the skin and checked circumfrentially to ensure a good application without gaps. The midline abdominal wound vac is in place, bridged to the left side of the abdomen, with a good seal, set at -125mmHg. No evidence of leak. The patient's home vac was hooked up and demonstrated a good seal without evidence of leak. The LUQ mucus fistula mucosa pink with appliance in place with good seal. Abdominal binder applied with hole cut in order to accommodate the ileostomy bag. - Labs 02/27/18 06:27 02/27/18 06:27
[2018-03-03] MEDS: PERCOCET 5/325 PO PRN ×3 (00:05→11:56)
[2018-03-03] MEDS: ZOSYN/NS 3.375GM/50ML 3.375 GM/50 ML BAG IV SCH ×3 (00:06→14:28)
[2018-03-03 08:16] VITALS: BP 131/88
[2018-03-03] MEDS: ZOFRAN IV PRN (08:25)
[2018-03-03] MEDS: PEPCID PO SCH (09:33)
[2018-03-03] MEDS: ZYVOX PO SCH (09:33)
[2018-03-03] MEDS: LACTINEX PO SCH (09:33)
[2018-03-03] MEDS: SODIUM CHLORIDE FLUSH SYRINGE 10 ML IV SCH (09:35)
--- NOTE | 2018-03-03 10:18 | Progress Note ---
Assessment and Plan 48 yo M with 1. SIRs secondary to known wound infection 2. dehiscence and infection of midline abdominal wound 3. small intraabdominal fluid collections on CT 4. metastatic carcinoma of the appendix 5. malnutrition 6. Crohn's disease 7. Ileostomy and mucus fistula Plan: 1. abx per ID, switch to PO at dc per ID recs 2. Reg diet with supplements 3. continue wound vac per wound care nursing. 4. PRN pain control - would avoid IV narcotics and only give PO 5. routine ostomy care. The patient states that he can care for the ostomy at home and will replace appliance if need be if leakage occurs. He has ostomy appliances, adhesive spray, and ostomy paste at home in order to perform ostomy care. He has an appointment at the wound care clinic tomorrow at 1 pm and will follow up after dc. Ok to dc home from surgery standpoint. The patient is ok with this as well. Notified Dr. Fulton. Thank you for this consultation. Please call with questions or concerns. Subjective Date of service: 03/03/18 Narrative: Pt seen and examined. Overnight, did have some leakage from ileostomy bag and was replaced by nursing. No reports of leakage from wound vac. No f/c, cp, sob, n/v, abd pain. Objective Vital Signs - 12hr 03/02/18 03/03/18 22:37 08:10 Temperature 98.8 F 98.1 F Pulse Rate 92 H 92 H Respiratory 18 18 Rate Blood Pressure 124/80 131/88 O2 Sat by Pulse 99 99 Oximetry - General physical appearance Narrative Exam: Gen: AAOx3. NAD\ CV: S1, S2+ resp: even and unlabored Abd: soft, NT, ND. wound vac dressing at right mid wound adjacent to ileostomy wafer appears to be loose. This was reinforced by a tegaderm dressing. Vac hooked to hospital vac and no leak confirmed. Hooked back to home vac. Ileostomy wafer and bag intact without leakage. Mucus fistula pink with appliance intact. - Labs 02/27/18 06:27 02/27/18 06:27
--- NOTE | 2018-03-03 10:51 | Discharge Summary ---
Providers - Providers Date of Admission: 02/27/18 12:57 Date of discharge: 03/03/18 Attending physician: MANNY BILLINGSLEY 02/27/18 12:58 Consult to Physician [CONS] Urgent Comment: Consulting Provider: BRANDO HENLEY Physician Instructions: Reason For Exam: intra-abdominal infection status post lap 02/27/18 15:55 Consult to Wound/ET Nurse [CONS] Routine Reason For Exam: replace vac, assess ostomy 02/28/18 14:27 Consult to Dietitian/Nutrition [CONS] Routine Physician Instructions: Reason For Exam: Reason for Consult: Malnutrition 02/28/18 15:03 Consult to Physician [CONS] Routine Comment: Consulting Provider: NUHA SCHWARTZ Physician Instructions: Reason For Exam: met cancer of appendix 02/28/18 16:48 Consult to Case Management [CONS] Urgent Services Needed at Discharge: 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 Mix, recurrent SBO who developed high grade obstruction and underwent Exploratory laparotomy, lysis of adhesions , ileocecectomy with primary anastomosis on 01/18/18. He did well on TPN then the pathology came back as adenocarcinoma, so he went back to OR on 01/28/18 for Exploratory laparotomy, lysis of adhesions, small bowel resection, right hemicolectomy, partial omentectomy, creation of end ileostomy and mucus fistula , application of wound vac. This created left ostial open/mucus fistula, open midline wound and right sided ileostomy. He did well and went home with home care [facility] Insurance did not cover SNF. Come to find out his insurance did not cover home health care without a co-pay which he could not afford. So, the wound became infected and he was re-admitted 02/10/18. He underwent Excisional debridement of infected abdominal wound on 02/13/18. He did well and was sent home. Now, he again come back with wound infection because he is unable to manage the wound vac. 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 He has never established outpatient Heme/Oncology care with Dr. Schwartz because he has repeated re-admission due to wound infection, most likely because his inability to care for the wound. -Sepsis, poa, due to wound infection/abd wall cellulitis with abscess: treat with abx and consulted Surgery, wound is open so no i-n-d, wound vac re- established -patient requesting certain pain medication for symptoms, ?secondary gain -Metastatic Carcinoma of the appendix: Consult Dr. 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 s/p exploratory laparotomy, ileocecectomy for small bowel obstruction on 01/18/18. s/p exploratory laparotomy , small bowel resection, right hemicolectomy, creation of ileostomy and mucous fistula 01/28/18. okay to discharge per Gen. Surgeon, Dr. Gordon. Wound care appt tomorrow at 1pm upon discharge will extend levaquin 500 mg PO qday and zyvox 600 mg po q12h until 03/04/18 Disposition: [id number]/TX-06 HOME UND[facility] Time spent for discharge: 32 minutes Core Measure Documentation - Palliative Care Palliative Care/ Comfort Measures: Not Applicable - Core Measures Any of the following diagnoses?: none - VTE Discharge Requirements Deep Vein Thrombosis/Pulmonary Embolism Present on Admission: No Has pt received <5 days of overlap therapy or INR<2.0: No Anticoagulant overlap therapy prescribed at discharge: No Contraindication No Overlap Therapy order at DC: Not Indicated Exam - Physical Exam Narrative exam: GEN: cachetic, ill appearing, NAD, Awake, Alert, Orientated HEENT: NCAT, EOMI, PERRL, OP Clear NECK: supple, no adenopathy, no thyromegaly, no JVD CVS/HEART: RRR, normal S1S2, pulses present bilaterally CHEST/LUNGS: CTA B, Symmetrical chest expansion, good air entry bilaterally GI/Abdomen: soft, 2 osteomies: right and left +bowel sounds, no guarding or rebound, surgical dsg clean and intact /Bladder: no suprapubic tenderness, no CVA or paraspinal tenderness EXT/Skin: no c/c/e, no obvious rash MSK: FROM x 4 Neuro: CN 2-12 grossly intact, no new focal deficits Psych: calm - Constitutional Vitals: Temp Pulse Resp BP Pulse Ox 98.1 F 92 H 18 131/88 99 03/03/18 08:10 03/03/18 08:10 03/03/18 08:10 03/03/18 08:10 03/03/18 08:10 Plan Activity: other (no strenous activity) Diet: advance as tolerated Wound: per your surgeon's advice Follow up with: GERHARD QUIGLEY MD [Primary Care Provider] - 3-5 Days Prescriptions: Lactobacillus Acidophil [Lactinex] 1 each PO BID #60 tab.chew Levofloxacin [Levaquin TAB] 500 mg PO Q24HR #2 tablet Linezolid [Zyvox] 600 mg PO BID #14 tablet oxyCODONE /ACETAMINOPHEN [Percocet 5/325 mg] 1 tab PO Q6H PRN #12 tablet PRN Reason: Pain, Moderate (4-6)
== END 2018-03-03 14:35 | disposition home health service (06) | DRG 862 ==
LOC: ED 04:20 → 3A 12:57
PROVIDERS: ADMIT Internal Medicine; ATTEND Internal Medicine
DX: T81.4XXA Infection following a procedure, initial encounter (principal); A41.9 Sepsis, unspecified organism; E43 Unspecified severe protein-calorie malnutrition; K65.1 Peritoneal abscess; L03.311 Cellulitis of abdominal wall; K50.90 Crohn's disease, unspecified, without complications; T81.31XA Disruption of external operation (surgical) wound, not elsewhere classified, initial encounter; C78.5 Secondary malignant neoplasm of large intestine and rectum; R65.10 Systemic inflammatory response syndrome (SIRS) of non-infectious origin without acute organ dysfunction; Y83.8 Other surgical procedures as the cause of abnormal reaction of the patient, or of later complication, without mention of misadventure at the time of the procedure; I10 Essential (primary) hypertension; E11.9 Type 2 diabetes mellitus without complications; Z90.49 Acquired absence of other specified parts of digestive tract; Z80.9 Family history of malignant neoplasm, unspecified; Z79.84 Long term (current) use of oral hypoglycemic drugs; Z68.20 Body mass index [BMI] 20.0-20.9, adult; Z79.899 Other long term (current) drug therapy; Z93.2 Ileostomy status; Y92.89 Other specified places as the place of occurrence of the external cause
CPT/HCPCS: 36415; 74177; 80053; 81001; 82140; 82962; 83690; 84484; 85025; 85610; 85730; 86140; 87040; 87086; 96374; 96375; 96376; J1170; J1200; J2020; J2270; J2405; J2543; J7030; Q9967

== ENCOUNTER 2018-03-04 12:16 | Outpatient (CLI) | payer OTHER | END 2018-03-04 12:17 | disposition home or self-care (01) | LOC: WOUND 12:16 | PROVIDERS: ATTEND Internal Medicine | DX: T81.89XD Other complications of procedures, not elsewhere classified, subsequent encounter (principal); E11.9 Type 2 diabetes mellitus without complications; I10 Essential (primary) hypertension; Z85.038 Personal history of other malignant neoplasm of large intestine; Z87.891 Personal history of nicotine dependence; Y83.8 Other surgical procedures as the cause of abnormal reaction of the patient, or of later complication, without mention of misadventure at the time of the procedure | CPT/HCPCS: 97606 ==

== ENCOUNTER 2018-03-07 12:01 | Outpatient (CLI) | payer OTHER | END 2018-03-07 12:02 | disposition home or self-care (01) | LOC: WOUND 12:01 | PROVIDERS: ATTEND Nurse Practitioner | DX: T81.89XD Other complications of procedures, not elsewhere classified, subsequent encounter (principal); S31.109D Unspecified open wound of abdominal wall, unspecified quadrant without penetration into peritoneal cavity, subsequent encounter; E11.9 Type 2 diabetes mellitus without complications; I10 Essential (primary) hypertension; Z85.038 Personal history of other malignant neoplasm of large intestine; Z87.891 Personal history of nicotine dependence; X58.XXXD Exposure to other specified factors, subsequent encounter; Y83.8 Other surgical procedures as the cause of abnormal reaction of the patient, or of later complication, without mention of misadventure at the time of the procedure | CPT/HCPCS: 97606 ==

== ENCOUNTER 2018-03-11 13:01 | Outpatient (CLI) | payer OTHER ==
[2018-03-11] MEDS ORDERED: XYLOCAINE TOPICAL 4% TP ONE (13:17)
== END 2018-03-11 13:02 | disposition home or self-care (01) ==
LOC: WOUND 13:01
PROVIDERS: ATTEND Surgery
DX: T81.89XD Other complications of procedures, not elsewhere classified, subsequent encounter (principal); E11.9 Type 2 diabetes mellitus without complications; I10 Essential (primary) hypertension; Z85.038 Personal history of other malignant neoplasm of large intestine; Z87.891 Personal history of nicotine dependence; Y83.8 Other surgical procedures as the cause of abnormal reaction of the patient, or of later complication, without mention of misadventure at the time of the procedure
CPT/HCPCS: 97605

== ENCOUNTER 2018-03-14 11:30 | Outpatient (CLI) | payer OTHER | END 2018-03-14 11:31 | disposition home or self-care (01) | LOC: WOUND 11:30 | PROVIDERS: ATTEND Surgery | DX: T81.89XD Other complications of procedures, not elsewhere classified, subsequent encounter (principal); E11.9 Type 2 diabetes mellitus without complications; I10 Essential (primary) hypertension; Z85.038 Personal history of other malignant neoplasm of large intestine; Z87.891 Personal history of nicotine dependence; Y83.8 Other surgical procedures as the cause of abnormal reaction of the patient, or of later complication, without mention of misadventure at the time of the procedure | CPT/HCPCS: 97605 ==

== ENCOUNTER 2018-03-18 12:41 | Outpatient (CLI) | payer OTHER ==
[2018-03-18] MEDS ORDERED: XYLOCAINE TOPICAL 4% TP ONE ×2 (12:54→13:02)
== END 2018-03-18 12:42 | disposition home or self-care (01) ==
LOC: WOUND 12:41
PROVIDERS: ATTEND Surgery
DX: T81.89XD Other complications of procedures, not elsewhere classified, subsequent encounter (principal); I10 Essential (primary) hypertension; Z85.038 Personal history of other malignant neoplasm of large intestine; Z87.891 Personal history of nicotine dependence; Y83.8 Other surgical procedures as the cause of abnormal reaction of the patient, or of later complication, without mention of misadventure at the time of the procedure
CPT/HCPCS: 97597; 97598

== ENCOUNTER 2018-03-19 12:44 | Outpatient (CLI) | payer OTHER | END 2018-03-19 12:45 | disposition home or self-care (01) | LOC: WOUND 12:44 | PROVIDERS: ATTEND Surgery | DX: T81.89XD Other complications of procedures, not elsewhere classified, subsequent encounter (principal); I10 Essential (primary) hypertension; Z85.038 Personal history of other malignant neoplasm of large intestine; Z87.891 Personal history of nicotine dependence; Y83.8 Other surgical procedures as the cause of abnormal reaction of the patient, or of later complication, without mention of misadventure at the time of the procedure | CPT/HCPCS: 99213; G0463 ==

== ENCOUNTER 2018-03-25 10:06 | Outpatient (CLI) | payer OTHER | END 2018-03-25 10:07 | disposition home or self-care (01) | LOC: WOUND 10:06 | PROVIDERS: ATTEND Surgery | DX: T81.89XD Other complications of procedures, not elsewhere classified, subsequent encounter (principal); E11.9 Type 2 diabetes mellitus without complications; I10 Essential (primary) hypertension; Z85.038 Personal history of other malignant neoplasm of large intestine; Z87.891 Personal history of nicotine dependence; Y83.8 Other surgical procedures as the cause of abnormal reaction of the patient, or of later complication, without mention of misadventure at the time of the procedure | CPT/HCPCS: 99214; G0463 ==

== ENCOUNTER 2018-04-02 10:23 | Outpatient (CLI) | payer OTHER ==
[2018-04-02] MEDS ORDERED: XYLOCAINE TOPICAL 4% TP ONE (10:54)
[2018-04-02] MEDS ORDERED: SILVER NITRATE TP ONE ×2 (11:04→11:08)
== END 2018-04-02 10:24 | disposition home or self-care (01) ==
LOC: WOUND 10:23
PROVIDERS: ATTEND Surgery
DX: T81.89XD Other complications of procedures, not elsewhere classified, subsequent encounter (principal); E11.9 Type 2 diabetes mellitus without complications; I10 Essential (primary) hypertension; Z85.038 Personal history of other malignant neoplasm of large intestine; Z87.891 Personal history of nicotine dependence; Y83.8 Other surgical procedures as the cause of abnormal reaction of the patient, or of later complication, without mention of misadventure at the time of the procedure
CPT/HCPCS: 17250

== ENCOUNTER 2018-04-08 10:27 | Outpatient (CLI) | payer OTHER ==
[2018-04-08] MEDS ORDERED: XYLOCAINE TOPICAL 4% TP ONE ×2 (10:43→10:50)
[2018-04-08] MEDS ORDERED: SILVER NITRATE TP ONE ×2 (10:58→11:04)
== END 2018-04-08 10:28 | disposition home or self-care (01) ==
LOC: WOUND 10:27
PROVIDERS: ATTEND Surgery
DX: T81.89XD Other complications of procedures, not elsewhere classified, subsequent encounter (principal); E11.9 Type 2 diabetes mellitus without complications; I10 Essential (primary) hypertension; Z85.038 Personal history of other malignant neoplasm of large intestine; Z87.891 Personal history of nicotine dependence; Y83.8 Other surgical procedures as the cause of abnormal reaction of the patient, or of later complication, without mention of misadventure at the time of the procedure
CPT/HCPCS: 17250; G0463; 99214

== ENCOUNTER 2018-04-15 08:31 | Outpatient (CLI) | payer OTHER ==
[2018-04-15] MEDS ORDERED: XYLOCAINE TOPICAL 4% TP ONE ×2 (08:51→09:06)
== END 2018-04-15 08:32 | disposition home or self-care (01) ==
LOC: WOUND 08:31
PROVIDERS: ATTEND Surgery
DX: T81.89XD Other complications of procedures, not elsewhere classified, subsequent encounter (principal); E11.9 Type 2 diabetes mellitus without complications; I10 Essential (primary) hypertension; Z85.038 Personal history of other malignant neoplasm of large intestine; Z87.891 Personal history of nicotine dependence; Y83.8 Other surgical procedures as the cause of abnormal reaction of the patient, or of later complication, without mention of misadventure at the time of the procedure
CPT/HCPCS: 99215; G0463

== ENCOUNTER 2018-04-22 08:33 | Outpatient (CLI) | payer OTHER ==
[2018-04-22] MEDS ORDERED: XYLOCAINE TOPICAL 4% TP ONE ×2 (08:37→08:55)
== END 2018-04-22 08:34 | disposition home or self-care (01) ==
LOC: WOUND 08:33
PROVIDERS: ATTEND Surgery
DX: T81.89XD Other complications of procedures, not elsewhere classified, subsequent encounter (principal); E11.9 Type 2 diabetes mellitus without complications; I10 Essential (primary) hypertension; Z85.038 Personal history of other malignant neoplasm of large intestine; Z87.891 Personal history of nicotine dependence; Y83.8 Other surgical procedures as the cause of abnormal reaction of the patient, or of later complication, without mention of misadventure at the time of the procedure

== ENCOUNTER 2018-04-29 10:44 | Outpatient (CLI) | payer OTHER ==
[~2018-04-29 10:44] MED LIST: XYLOCAINE TOPICAL 4% TP ONE
== END 2018-04-29 10:45 | disposition home or self-care (01) ==
LOC: WOUND 10:44
PROVIDERS: ATTEND Surgery
DX: T81.89XD Other complications of procedures, not elsewhere classified, subsequent encounter (principal); E11.9 Type 2 diabetes mellitus without complications; I10 Essential (primary) hypertension; Z85.038 Personal history of other malignant neoplasm of large intestine; Z87.891 Personal history of nicotine dependence; Y83.8 Other surgical procedures as the cause of abnormal reaction of the patient, or of later complication, without mention of misadventure at the time of the procedure
CPT/HCPCS: 97597; 97598

== ENCOUNTER 2018-05-06 08:33 | Outpatient (CLI) | payer OTHER ==
[2018-05-06] MEDS ORDERED: XYLOCAINE TOPICAL 4% TP ONE ×2 (08:38→08:39)
== END 2018-05-06 08:34 | disposition home or self-care (01) ==
LOC: WOUND 08:33
PROVIDERS: ATTEND Surgery
DX: T81.89XD Other complications of procedures, not elsewhere classified, subsequent encounter (principal); E11.9 Type 2 diabetes mellitus without complications; I10 Essential (primary) hypertension; Z85.038 Personal history of other malignant neoplasm of large intestine; Z87.891 Personal history of nicotine dependence; Y83.8 Other surgical procedures as the cause of abnormal reaction of the patient, or of later complication, without mention of misadventure at the time of the procedure
CPT/HCPCS: 99214; G0463

== ENCOUNTER 2018-05-13 08:33 | Outpatient (CLI) | payer OTHER ==
[2018-05-13] MEDS ORDERED: XYLOCAINE TOPICAL 4% TP ONE ×2 (08:45→08:52)
== END 2018-05-13 08:34 | disposition home or self-care (01) ==
LOC: WOUND 08:33
PROVIDERS: ATTEND Surgery
DX: T81.89XD Other complications of procedures, not elsewhere classified, subsequent encounter (principal); E11.9 Type 2 diabetes mellitus without complications; I10 Essential (primary) hypertension; Z85.038 Personal history of other malignant neoplasm of large intestine; Z87.891 Personal history of nicotine dependence; Y83.8 Other surgical procedures as the cause of abnormal reaction of the patient, or of later complication, without mention of misadventure at the time of the procedure
CPT/HCPCS: 99214; G0463

== ENCOUNTER 2018-05-20 08:32 | Outpatient (CLI) | payer OTHER ==
[2018-05-20] MEDS ORDERED: XYLOCAINE TOPICAL 4% TP ONE ×2 (08:41→08:49)
== END 2018-05-20 08:33 | disposition home or self-care (01) ==
LOC: WOUND 08:32
PROVIDERS: ATTEND Surgery
DX: T81.89XD Other complications of procedures, not elsewhere classified, subsequent encounter (principal); E11.9 Type 2 diabetes mellitus without complications; I10 Essential (primary) hypertension; Z85.038 Personal history of other malignant neoplasm of large intestine; Z87.891 Personal history of nicotine dependence; Y83.8 Other surgical procedures as the cause of abnormal reaction of the patient, or of later complication, without mention of misadventure at the time of the procedure
CPT/HCPCS: 99214; G0463

== ENCOUNTER 2018-05-27 08:28 | Outpatient (CLI) | payer OTHER ==
[2018-05-27] MEDS ORDERED: XYLOCAINE TOPICAL 4% TP ONE ×2 (08:32→08:40)
== END 2018-05-27 08:29 | disposition home or self-care (01) ==
LOC: WOUND 08:28
PROVIDERS: ATTEND Surgery
DX: T81.89XD Other complications of procedures, not elsewhere classified, subsequent encounter (principal); E11.9 Type 2 diabetes mellitus without complications; I10 Essential (primary) hypertension; Z85.038 Personal history of other malignant neoplasm of large intestine; Z87.891 Personal history of nicotine dependence; Y83.8 Other surgical procedures as the cause of abnormal reaction of the patient, or of later complication, without mention of misadventure at the time of the procedure
CPT/HCPCS: 97597

== ENCOUNTER 2018-06-03 08:28 | Outpatient (CLI) | payer OTHER ==
[2018-06-03] MEDS ORDERED: XYLOCAINE TOPICAL 4% TP ONE (08:59)
== END 2018-06-03 08:29 | disposition home or self-care (01) ==
LOC: WOUND 08:28
PROVIDERS: ATTEND Surgery
DX: T81.89XD Other complications of procedures, not elsewhere classified, subsequent encounter (principal); E11.9 Type 2 diabetes mellitus without complications; I10 Essential (primary) hypertension; Z87.891 Personal history of nicotine dependence; Z85.038 Personal history of other malignant neoplasm of large intestine; Y83.8 Other surgical procedures as the cause of abnormal reaction of the patient, or of later complication, without mention of misadventure at the time of the procedure
CPT/HCPCS: 99213; G0463

== ENCOUNTER 2018-06-10 08:37 | Outpatient (CLI) | payer OTHER ==
[2018-06-10] MEDS ORDERED: XYLOCAINE TOPICAL 4% TP ONE ×2 (08:40→08:51)
== END 2018-06-10 08:38 | disposition home or self-care (01) ==
LOC: WOUND 08:37
PROVIDERS: ATTEND Surgery
DX: T81.89XD Other complications of procedures, not elsewhere classified, subsequent encounter (principal); E11.9 Type 2 diabetes mellitus without complications; I10 Essential (primary) hypertension; Z87.891 Personal history of nicotine dependence; Z85.038 Personal history of other malignant neoplasm of large intestine; Y83.8 Other surgical procedures as the cause of abnormal reaction of the patient, or of later complication, without mention of misadventure at the time of the procedure
CPT/HCPCS: 97597

== ENCOUNTER 2018-06-17 08:32 | Outpatient (CLI) | payer OTHER ==
[2018-06-17] MEDS ORDERED: XYLOCAINE TOPICAL 2% 5ML ONE (08:35)
[2018-06-17] MEDS ORDERED: XYLOCAINE TOPICAL 2% 5ML TP ONE (08:43)
== END 2018-06-17 08:33 | disposition home or self-care (01) ==
LOC: WOUND 08:32
PROVIDERS: ATTEND Surgery
DX: T81.89XD Other complications of procedures, not elsewhere classified, subsequent encounter (principal); E11.9 Type 2 diabetes mellitus without complications; I10 Essential (primary) hypertension; Z87.891 Personal history of nicotine dependence; Z85.038 Personal history of other malignant neoplasm of large intestine; Y83.8 Other surgical procedures as the cause of abnormal reaction of the patient, or of later complication, without mention of misadventure at the time of the procedure
CPT/HCPCS: 99214; G0463

== ENCOUNTER 2018-06-24 08:29 | Outpatient (CLI) | payer OTHER ==
[2018-06-24] MEDS ORDERED: XYLOCAINE TOPICAL 2% 5ML ONE (08:33)
[2018-06-24] MEDS ORDERED: XYLOCAINE TOPICAL 2% 5ML TP ONE (15:36)
== END 2018-06-24 08:30 | disposition home or self-care (01) ==
LOC: WOUND 08:29
PROVIDERS: ATTEND Surgery
DX: T81.89XD Other complications of procedures, not elsewhere classified, subsequent encounter (principal); E11.9 Type 2 diabetes mellitus without complications; I10 Essential (primary) hypertension; Z87.891 Personal history of nicotine dependence; Z85.038 Personal history of other malignant neoplasm of large intestine; Y83.8 Other surgical procedures as the cause of abnormal reaction of the patient, or of later complication, without mention of misadventure at the time of the procedure
CPT/HCPCS: 99214; G0463

== ENCOUNTER 2018-07-15 08:26 | Outpatient (CLI) | payer SELFPAY | END 2018-07-15 08:27 | disposition home or self-care (01) | LOC: WOUND 08:26 | PROVIDERS: ATTEND Surgery | DX: T81.89XD Other complications of procedures, not elsewhere classified, subsequent encounter (principal); E11.9 Type 2 diabetes mellitus without complications; I10 Essential (primary) hypertension; Z87.891 Personal history of nicotine dependence; Z85.038 Personal history of other malignant neoplasm of large intestine; Y83.8 Other surgical procedures as the cause of abnormal reaction of the patient, or of later complication, without mention of misadventure at the time of the procedure ==

== ENCOUNTER 2018-08-05 09:00 | Outpatient (CLI) | payer OTHER ==
[2018-08-08] MEDS ORDERED: XYLOCAINE TOPICAL 4% TP ONE (12:02)
== END 2018-08-05 09:01 | disposition home or self-care (01) ==
LOC: WOUND 09:00
PROVIDERS: ATTEND Surgery
DX: T81.89XD Other complications of procedures, not elsewhere classified, subsequent encounter (principal); E11.9 Type 2 diabetes mellitus without complications; I10 Essential (primary) hypertension; Z87.891 Personal history of nicotine dependence; Z85.038 Personal history of other malignant neoplasm of large intestine; Y83.8 Other surgical procedures as the cause of abnormal reaction of the patient, or of later complication, without mention of misadventure at the time of the procedure

== ENCOUNTER 2019-03-26 07:25 | Observation (INO) | payer MEDICAID ==
[2019-03-26 08:36] LABS: Basophils % (Auto) 0.6 % (0.0-1.8); Eosinophils % (Auto) 0.2 % (0.0-4.3); Hematocrit 31.1 % (35.5-45.6); Lymphocytes # (Auto) 0.7 K/mm3 (1.2-5.4); Lymphocytes % (Auto) 9.9 % (13.4-35.0); Mean Corpuscular HGB Conc 32 % (32-34); Mean Corpuscular Volume 81 fl (84-94); Monocytes # (Auto) 0.6 K/mm3 (0.0-0.8); Monocytes % (Auto) 8.9 % (0.0-7.3); Platelet Count 288 K/mm3 (140-440); Red Blood Count 3.86 M/mm3 (3.65-5.03); Red Cell Distribution Width 16.9 % (13.2-15.2)
[2019-03-26 08:59] LABS: BUN/Creatinine Ratio 13; Blood Urea Nitrogen 12 mg/dL (9-20); Calcium 9.1 mg/dL (8.4-10.2); Hemolysis Index 3
[2019-03-26] MEDS ORDERED: ASPIRIN PO ONE (09:29)
[2019-03-26] MEDS ORDERED: ZOFRAN IV ONE (09:29)
[2019-03-26] MEDS ORDERED: SUBLIMAZE IV ONE ×3 (09:29→13:59)
[2019-03-26] MEDS ORDERED: NITRO-BID 2% TP ONE (09:30)
--- NOTE | 2019-03-26 09:32 | XRay Report ---
PROCEDURE: XR CHEST 1V AP TECHNIQUE: Chest radiograph, AP view. HISTORY: Chest Pain COMPARISONS: Chest x-ray February 10, 2018. FINDINGS: Cardiac silhouette is within normal limits. There is no effusion. There is no pneumothorax. There is no consolidation. There are no suspicious osseous lesions. IMPRESSION: * No acute cardiopulmonary findings. This document is electronically signed by Jacques Macias MD., Mar 26 2019 09:30:15 AM ET
--- NOTE | 2019-03-26 09:37 | Emergency Department Report ---
HPI - General Chief Complaint: Chest Pain Time Seen by Provider: 03/26/19 09:21 - HPI HPI: Room 3 The patient is a 49-year-old male presenting with a chief complaint of chest pain. Patient states this evening at midnight he developed substernal chest pa in radiating to his jaw and left upper extremity. Patient states it feels like a pressure associated with shortness of breath and slight diaphoresis. Patient denies nausea vomiting. Patient states the pain lasted 40 minutes and then resolved but returned this morning at 06:00 waking him up. She admits to slight pleurisy but denies history of cough. The patient has a history of metastatic colon CA currently on chemotherapy. He states his last stress test occurred approximately 16 years ago but he's never had a cardiac catheterization Location: [See above] Duration: [See above] Quality: Pressure Severity: 7-06/14 Modifying factors: [see above] Context: [see above] Mode of transportation: [not driving] ED Past Medical Hx - Past Medical History Previous Medical History?: Yes Hx Hypertension: Yes Hx Diabetes: Yes Hx of Cancer: Yes Additional medical history: Crohn's Disease, Bowel obstruction - Surgical History Past Surgical History?: Yes Additional Surgical History: 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 Gastric surgery (patient uncertain what was done) - Family History Family history: no significant - Social History Smoking Status: Never Smoker Substance Use Type: Alcohol (occasional) - Medications Home Medications: Home Medications Medication Instructions Recorded Confirmed Last Taken Type Multivitamin [Daily Multiple 1 each PO DAILY 03/26/19 03/26/19 03/25/19 History Vitamin] Sulfamethoxazole/Trimethoprim 1 each PO BID 03/26/19 03/26/19 03/25/19 History [Bactrim DS TAB] Xeloda 1,500 mg PO TID 03/26/19 03/26/19 03/25/19 History ED Review of Systems ROS: Stated complaint: CHEST PAIN/JAW PAIN (L) ARM Other details as noted in HPI Constitutional: diaphoresis Eyes: denies: eye pain ENT: denies: throat pain Respiratory: shortness of breath Cardiovascular: chest pain Endocrine: no symptoms reported Gastrointestinal: denies: nausea, vomiting Genitourinary: denies: dysuria Musculoskeletal: denies: back pain Neurological: denies: headache Physical Exam - Physical Exam Vital Signs: Vital Signs 03/26/19 07:35 Temperature 97.7 F Pulse Rate 86 Respiratory 14 Rate Blood Pressure 109/74 O2 Sat by Pulse 99 Oximetry Physical Exam: GENERAL: The patient is well-developed well-nourished male lying on stretcher not appearing to be in acute distress. [] HEENT: Normocephalic. Atraumatic. Extraocular motions are intact. Patient has moist mucous membranes. NECK: Supple. Trachea midline CHEST/LUNGS: Clear to auscultation. There is no respiratory distress noted. HEART/CARDIOVASCULAR: Regular. There is no tachycardia. There is no gallop rub or murmur. ABDOMEN: Abdomen is soft, nontender. Patient has normal bowel sounds. There is no abdominal distention. SKIN: There is no rash. There is no edema. There is no diaphoresis. NEURO: The patient is awake, alert, and oriented. The patient is cooperative. The patient has no focal neurologic deficits. The patient has normal speech MUSCULOSKELETAL: There is no evidence of acute injury. ED Course Vital Signs 03/26/19 07:35 Temperature 97.7 F Pulse Rate 86 Respiratory 14 Rate Blood Pressure 109/74 O2 Sat by Pulse 99 Oximetry ED Medical Decision Making - Lab Data Result diagrams: 03/26/19 08:24 03/26/19 08:24 Laboratory Tests 03/26/19 03/26/19 03/26/19 08:24 08:24 09:30 WBC 7.0 RBC 3.86 Hgb 10.0 L Hct 31.1 L MCV 81 L MCH 26 L MCHC 32 RDW 16.9 H Plt Count 288 Lymph % (Auto) 9.9 L [place] % (Auto) 8.9 H Eos % (Auto) 0.2 Baso % (Auto) 0.6 Lymph # 0.7 L [place] # 0.6 Eos # 0.0 Baso # 0.0 Seg Neutrophils % 80.4 H Seg Neutrophils # 5.6 D-Dimer 1951.77 H Sodium 143 Potassium 3.7 Chloride 104.7 Carbon Dioxide 24 Anion Gap 18 BUN 12 Creatinine 0.9 Estimated GFR > 60 BUN/Creatinine Ratio 13 Glucose 105 H Calcium 9.1 Troponin T < 0.010 - EKG Data -: EKG Interpreted by Wy EKG shows normal: sinus rhythm Rate: normal - EKG Data When compared to previous EKG there are: previous EKG unavailable Interpretation: other (no ischemic changes seen) - Radiology Data Radiology results: report reviewed (chest x-ray, VQ scan), image reviewed (chest x-ray, VQ scan) interpreted by me: Chest x-ray-no focal infiltrates, no pneumothorax Chest x-ray (read by radiologist)-no acute cardiopulmonary findings VQ scan (read by radiologist)-normal study - Differential Diagnosis ACS, PE, pericarditis, GERD Critical care attestation.: If time is entered above; I have spent that time in minutes in the direct care of this critically ill patient, excluding procedure time. ED Disposition Clinical Impression: Chest pain Disposition: 09 OP ADMIT IP TO THIS HOSP Is pt being admited?: Yes Does the pt Need Aspirin: Yes Condition: Fair Instructions: Chest Pain (ED) Referrals: PRIMARY CARE, [Referring] - 3-5 Days Time of Disposition: 12:32 (hospitalist paged (Dr Ruano))
[2019-03-26] MEDS ORDERED: SUBLIMAZE ONE ×2 (11:37→13:55)
--- NOTE | 2019-03-26 12:31 | Nuclear Medicine Report ---
LUNG SCAN, VENTILATION AND PERFUSION: Chest pain and shortness of breath. Inhalation of Xenon gas demonstrates a normal distribution of the activity throughout both lungs. The wash out phases show no focal retention of activity. After injection of Technetium 99m macroaggregated albumin gamma camera imaging of the lungs in multiple projections demonstrates normal pulmonary contours with a homogeneous distribution of activity. No focal areas of perfusion deficiency are identified. IMPRESSION: Normal study.
[2019-03-26] MEDS: DILAUDID IV PRN (19:53)
[2019-03-26] MEDS ORDERED: SODIUM CHLORIDE FLUSH SYRINGE 10 ML IV PRN (21:15)
[2019-03-26] MEDS ORDERED: ZOFRAN IV PRN (21:15)
[2019-03-26] MEDS ORDERED: TYLENOL PO PRN (21:15)
[2019-03-26] MEDS: SODIUM CHLORIDE FLUSH SYRINGE 10 ML IV SCH (22:04)
[2019-03-26] MEDS: NACL 0.9% 1000 ML 1,000 ML IV SCH (22:04)
[2019-03-26] MEDS: PEPCID IV SCH (22:04)
[2019-03-27] MEDS: DILAUDID IV PRN ×5 (00:46→21:02)
--- NOTE | 2019-03-27 06:01 | Event Note ---
Date: 03/26/19 See H/p in reports Chest pain r/o Mi Colon ca with Mets
--- NOTE | 2019-03-27 06:40 | History and Physical Report ---
CHIEF COMPLAINT: Left-sided chest pain since last night. HISTORY OF PRESENT ILLNESS: A 49-year-old male with history of colon cancer with metastasis, on chemotherapy, comes in for retrosternal and left-sided chest pain since last night. The patient feels like a pressure sensation. Pain is about 6 on a scale of 1-10, associated with shortness of breath and slight diaphoresis. Denies nausea, vomiting. No palpitations. Pain has been intermittent in nature. No cough. No recent travel. No fever or chills. His last stress test was about 15 years ago. Never had a cardiac cath. PAST MEDICAL HISTORY: As mentioned, hypertension, diabetes, colon cancer with metastasis, Crohn disease, bowel obstruction in the past. PAST SURGICAL HISTORY: Abdominal surgery due to Crohn disease, intestinal fistulas, gastric surgery. FAMILY HISTORY: Hypertension. SOCIAL HISTORY: Does not smoke. Alcohol occasionally. CURRENT MEDICATIONS: Xeloda 1500 mg p.o. t.i.d. for colon cancer. REVIEW OF SYSTEMS: Significant for retrosternal and left-sided chest pain of 1 day duration. Otherwise, 14-point review of systems negative. PHYSICAL EXAMINATION: GENERAL: Middle-aged male, cachectic, lost about 100 pounds over the last 1 year. VITAL SIGNS: Blood pressure is 109/74, temperature 97.7, pulse is 86, respirations are 14. HEENT: Unremarkable. Slightly pale mucous membranes. NECK: Supple, no lymphadenopathy, no thyromegaly. LUNGS: Clear to auscultation and percussion. Good air entry. CARDIOVASCULAR SYSTEM: S1, S2 heard. No gallop, no murmur, no rub. Apical impulse in left fifth intercostal space in midclavicular line. ABDOMEN: Soft and benign. No hepatosplenomegaly. No guarding, no rigidity. Hernial orifices are normal. EXTREMITIES: Good pedal pulses. No pedal edema. CENTRAL NERVOUS SYSTEM: Alert and oriented x 4, nonfocal exam. SKIN: Normal. LABORATORY DATA: White count is 7000, H and H is 10.0 and hematocrit is 31.1, platelet count is 288,000. BMP is normal. Glucose is 105. Troponin is less than 0.010. DIAGNOSTIC DATA: Chest x-ray, no acute cardiopulmonary findings. V/Q scan was normal. No pulmonary emboli. EKG shows normal sinus rhythm, heart rate of 78 per minute, no acute ST-T wave changes. No LVH. ASSESSMENT AND PLAN: 1. Chest pain, rule out myocardial infarction, chest pain protocol. Serial troponins. Lexiscan in the morning. Differential diagnosis of costochondritis and gastroesophageal reflux disease present. 2. Colon cancer with metastasis. The patient on Xeloda. GI consult was not requested. 3. Anemia, probably secondary to colon cancer, but we will get iron studies and folic acid and B12. 4. Deep venous thrombosis prophylaxis, Lovenox 40 mg subcutaneous daily and gastrointestinal prophylaxis. JOB# [id number] TOMMY/NTS
--- NOTE | 2019-03-27 07:45 | Progress Note ---
Assessment and Plan Assessment and plan: --Atypical chest pain; rule out acute coronary syndrome Continue current management, possible stress test tomorrow, cardiology consult if needed --Elevated D dimers; low probability PE on V/Q Check lower extremity venous Doppler for DVT --Hypertension; moderate control, continue current antihypertensives When necessary medications --Type 2 diabetes mellitus; Accu-Chek sliding scale coverage and ADA diet Insulin as needed --History of metastatic colon cancer; patient follow oncologist On chemotherapy, supportive care --History of Crohn's disease; continue current management --DVT prophylaxis, SCDs Monitor closely and adjust the management as needed Follow-up stress test if negative and patient is stable may be discharged home tomorrow Plan of care is reviewed with the patient and his nurse History Interval history: Patient seen and examined medical records reviewed Admitted with atypical chest pain, cardiac workup is in progress The patient feels slightly better Vital signs reviewed Schedule for stress test tomorrow Hospitalist Physical - Constitutional Vitals: Temp Pulse Resp BP Pulse Ox 98.1 F 81 20 113/69 100 03/27/19 04:22 03/27/19 04:22 03/27/19 06:00 03/27/19 04:22 03/27/19 04:22 General appearance: Present: no acute distress, cachectic, disheveled - EENT Eyes: Present: PERRL, EOM intact - Neck Neck: Present: supple, normal ROM - Respiratory Respiratory effort: normal Respiratory: bilateral: diminished, negative: rales, rhonchi, wheezing - Cardiovascular Rhythm: regular Heart Sounds: Present: S1 & S2 - Extremities Extremities: no ischemia, No edema - Abdominal General gastrointestinal: soft, non-tender, non-distended, normal bowel sounds - Integumentary Integumentary: Present: clear, warm - Psychiatric Psychiatric: appropriate mood/affect, cooperative - Neurologic Neurologic: CNII-XII intact, moves all extremities Results - Labs CBC & Chem 7: 03/27/19 07:46 03/27/19 07:46 Labs: Laboratory Last Values WBC 7.0 K/mm3 (4.5-11.0) 03/26/19 08:24 RBC 3.86 M/mm3 (3.65-5.03) 03/26/19 08:24 Hgb 10.0 gm/dl (11.8-15.2) L 03/26/19 08:24 Hct 31.1 % (35.5-45.6) L 03/26/19 08:24 MCV 81 fl (84-94) L 03/26/19 08:24 MCH 26 pg (28-32) L 03/26/19 08:24 MCHC 32 % (32-34) 03/26/19 08:24 RDW 16.9 % (13.2-15.2) H 03/26/19 08:24 Plt Count 288 K/mm3 (140-440) 03/26/19 08:24 Lymph % (Auto) 9.9 % (13.4-35.0) L 03/26/19 08:24 Calhoun % (Auto) 8.9 % (0.0-7.3) H 03/26/19 08:24 Eos % (Auto) 0.2 % (0.0-4.3) 03/26/19 08:24 Baso % (Auto) 0.6 % (0.0-1.8) 03/26/19 08:24 Lymph # 0.7 K/mm3 (1.2-5.4) L 03/26/19 08:24 Calhoun # 0.6 K/mm3 (0.0-0.8) 03/26/19 08:24 Eos # 0.0 K/mm3 (0.0-0.4) 03/26/19 08:24 Baso # 0.0 K/mm3 (0.0-0.1) 03/26/19 08:24 Seg Neutrophils % 80.4 % (40.0-70.0) H 03/26/19 08:24 Seg Neutrophils # 5.6 K/mm3 (1.8-7.7) 03/26/19 08:24 1951.77 ng/mlDDU (0-234) H 03/26/19 09:30 Sodium 143 mmol/L (137-145) 03/26/19 08:24 Potassium 3.7 mmol/L (3.6-5.0) 03/26/19 08:24 Chloride 104.7 mmol/L (98-107) 03/26/19 08:24 Carbon Dioxide 24 mmol/L (22-30) 03/26/19 08:24 18 mmol/L 03/26/19 08:24 BUN 12 mg/dL (9-20) 03/26/19 08:24 0.9 mg/dL (0.8-1.5) 03/26/19 08:24 Estimated GFR > 60 ml/min 03/26/19 08:24 13 % 03/26/19 08:24 Glucose 105 mg/dL (75-100) H 03/26/19 08:24 POC Glucose 103 (70-105) 03/26/19 21:33 Calcium 9.1 mg/dL (8.4-10.2) 03/26/19 08:24 < 0.010 ng/mL (0.00-0.029) 03/26/19 21:55 Active Medications - Current Medications Current Medications: Generic Name Dose Route Start Last Admin Trade Name Freq PRN Reason Stop Dose Admin Acetaminophen 650 mg 03/26/19 21:15 Tylenol PO Q4H PRN Pain MILD(1-3)/Fever >100.5/SHOOK Enoxaparin Sodium 40 mg 03/27/19 22:00 Lovenox SUB-Q QDAY@2200 KELLY Famotidine 20 mg 03/26/19 22:00 03/26/19 22:04 Pepcid IV 20 mg BID KELLY Administration Hydromorphone HCl 0.5 mg 03/26/19 19:43 03/27/19 05:09 Dilaudid IV 0.5 mg Q3H PRN Administration Pain , Severe (7-10) Sodium Chloride 1,000 mls @ 75 mls/hr 03/26/19 22:00 03/26/19 22:04 Nacl 0.9% 1000 Ml IV 75 mls/hr DIRECT KELLY Administration Miscellaneous Medication 1,500 mg 03/27/19 08:00 Xeloda PO TID KELLY Ondansetron HCl 4 mg 03/26/19 21:15 Zofran IV Q8H PRN Nausea And Vomiting Sodium Chloride 10 ml 03/26/19 22:00 03/26/19 22:04 Sodium Chloride Flush Syringe 10 Ml IV 10 ml BID KELLY Administration Sodium Chloride 10 ml 03/26/19 21:15 Sodium Chloride Flush Syringe 10 Ml IV PRN PRN LINE FLUSH
[2019-03-27] MEDS ORDERED: XELODA 1500 MG PO SCH (08:00)
[2019-03-27 08:15] LABS: Basophils % (Auto) 0.3 % (0.0-1.8); Eosinophils % (Auto) 0.6 % (0.0-4.3); Hematocrit 28.1 % (35.5-45.6); Hemoglobin 9.1 gm/dl (11.8-15.2); Lymphocytes # (Auto) 0.6 K/mm3 (1.2-5.4); Mean Corpuscular HGB Conc 33 % (32-34); Mean Corpuscular Volume 80 fl (84-94); Monocytes # (Auto) 0.7 K/mm3 (0.0-0.8); Monocytes % (Auto) 9.5 % (0.0-7.3); Platelet Count 234 K/mm3 (140-440); Red Blood Count 3.53 M/mm3 (3.65-5.03); Red Cell Distribution Width 16.7 % (13.2-15.2)
[2019-03-27 08:34] LABS: Alanine Aminotransferase 18 units/L (7-56); Albumin 3.3 g/dL (3.9-5); BUN/Creatinine Ratio 20; Blood Urea Nitrogen 14 mg/dL (9-20); Calcium 8.6 mg/dL (8.4-10.2); Hemolysis Index 0
[2019-03-27 08:38] LABS: % Iron Saturation 7.1 %
[2019-03-27] MEDS: SODIUM CHLORIDE FLUSH SYRINGE 10 ML IV SCH ×2 (10:26→21:04)
[2019-03-27] MEDS: PEPCID IV SCH ×2 (10:26→21:03)
[2019-03-27] MEDS: NACL 0.9% 1000 ML 1,000 ML IV SCH ×2 (10:28→21:04)
--- NOTE | 2019-03-27 21:57 | Vascular Lab Report ---
PROCEDURE: VL VENOUS DUPLEX LE BILAT HISTORY: elevated d dimers,evaluate for DVT FINDINGS: Real-time ultrasound of the right leg and left leg was performed using grayscale and color Doppler images. These images demonstrate no evidence of deep venous thrombus in the right or left common femoral vein , superficial femoral vein, popliteal vein or posterior tibial vein. IMPRESSION: No DVT in either leg This document is electronically signed by Fab Plata MD., Mar 27 2019 09:55:12 PM ET
[2019-03-27] MEDS ORDERED: LOVENOX SUB-Q SCH (22:00)
[2019-03-28] MEDS: DILAUDID IV PRN ×3 (01:45→11:03)
[2019-03-28 06:19] LABS: Basophils % (Auto) 0.4 % (0.0-1.8); Eosinophils # (Auto) 0.1 K/mm3 (0.0-0.4); Eosinophils % (Auto) 1.1 % (0.0-4.3); Hematocrit 24.7 % (35.5-45.6); Hemoglobin 7.9 gm/dl (11.8-15.2); Lymphocytes # (Auto) 0.7 K/mm3 (1.2-5.4); Lymphocytes % (Auto) 13.2 % (13.4-35.0); Mean Corpuscular HGB Conc 32 % (32-34); Mean Corpuscular Volume 81 fl (84-94); Monocytes # (Auto) 0.6 K/mm3 (0.0-0.8); Monocytes % (Auto) 11.2 % (0.0-7.3); Platelet Count 184 K/mm3 (140-440); Red Blood Count 3.06 M/mm3 (3.65-5.03); Red Cell Distribution Width 16.8 % (13.2-15.2)
[2019-03-28 06:57] LABS: Alanine Aminotransferase 14 units/L (7-56); Albumin 2.9 g/dL (3.9-5); BUN/Creatinine Ratio 13; Blood Urea Nitrogen 10 mg/dL (9-20); Hemolysis Index 2
[2019-03-28] MEDS ORDERED: LEXISCAN IV ONE (10:08)
[2019-03-28] MEDS: PEPCID IV SCH (11:03)
[2019-03-28] MEDS: SODIUM CHLORIDE FLUSH SYRINGE 10 ML IV SCH (11:03)
--- NOTE | 2019-03-28 16:08 | Discharge Summary ---
Providers - Providers Date of Admission: 03/26/19 13:10 Date of discharge: 03/28/19 Attending physician: ANDREW COLBY 03/26/19 18:50 Consult to Physician [CONS] Routine Comment: Consulting Provider: NUHA SCHWARTZ Physician Instructions: Reason For Exam: known patient Primary care physician: GERHARD QUIGLEY MD Hospitalization Reason for admission: Chest pain Condition: Stable Pertinent studies: Stress test : normal,EF 56% VQ scan: negative Lower ext venous doppler: no DVT CXR : no acute abnormality Hospital course: 49-year-old male was admitted through ER with chest pain. Patient was admitted,symptomatically managed,had stress test which was negative.Elevated d dimers,neg for PE and DVT Symptomatically managed,had negative stress test. Patient's chest pain due to GERD,managed with protonix. The patient has a history of metastatic colon CA currently on chemotherapy. Advised to f/u with oncology per schedule. Today patient is comfortable,no new complaints,vitals reviewed. Stable at discharge. Discharge Diagnosis: --Atypical chest pain; resolved, Stress test negative,non cardiac chest pain. --Noncardiac chest pain probabaly due to GERD : protonix --Elevated D dimers; low probability PE on V/Q lower extremity venous Doppler negative for DVT --Hypertension; Stable on current antihypertensives When necessary medications --Type 2 diabetes mellitus; Accu-Chek sliding scale coverage and ADA diet Insulin as needed --History of metastatic colon cancer; patient follow oncologist On chemotherapy, supportive care --History of Crohn's disease; continue current management,f/u GI as needed --DVT prophylaxis, SCDs Stable at discharge Plan of care is reviewed with the patient and his nurse Disposition: DC-01 TO HOME OR SELFCARE Time spent for discharge: 32 min Core Measure Documentation - Palliative Care Palliative Care/ Comfort Measures: Not Applicable - Core Measures Any of the following diagnoses?: none Exam - Constitutional Vitals: Temp Pulse Resp BP Pulse Ox 97.9 F 68 16 98/59 99 03/28/19 11:52 03/28/19 11:52 03/28/19 11:52 03/28/19 11:52 03/28/19 11:52 General appearance: Present: no acute distress, well-nourished - EENT Eyes: Present: PERRL, EOM intact - Neck Neck: Present: supple, normal ROM - Respiratory Respiratory effort: normal Respiratory: bilateral: diminished, negative: rales, rhonchi, wheezing - Cardiovascular Rhythm: regular Heart Sounds: Present: S1 & S2 - Extremities Extremities: no ischemia, No edema - Abdominal General gastrointestinal: Present: soft, non-tender, non-distended, normal bowel sounds - Integumentary Integumentary: Present: clear, warm - Musculoskeletal Musculoskeletal: strength equal bilaterally - Psychiatric Psychiatric: appropriate mood/affect, cooperative - Neurologic Neurologic: CNII-XII intact, moves all extremities Plan Activity: advance as tolerated Diet: regular Additional Instructions: If you have chest pain or shortness of breath contact M.D. or go to emergency room Follow up with: PRIMARY CARE, [Referring] - 3-5 Days NUHA SCHWARTZ MD [Staff Physician] - 7 Days SONIA MOSER MD [Staff Physician] - 7 Days Prescriptions: Ferrous Sulfate [Iron 325 MG] 325 mg PO DAILY #30 tablet Famotidine [Pepcid] 20 mg PO BID #30 tablet
[2019-03-28 16:54] VITALS: BP 104/64
--- NOTE | 2019-03-28 22:05 | Treadmill Report ---
ORDERING PHYSICIAN: Kristina Ruano MD FINDINGS: There is no scintigraphic evidence of myocardial ischemia. The left ventricular cavity is normal in size. The left ventricular ejection fraction is measured at 56%. Normal wall motion and wall thickening is noted on gated imaging. CONCLUSION: Normal perfusion scan. JOB# [id number] AB/NTS
== END 2019-03-28 18:27 | disposition home or self-care (01) ==
LOC: ED 07:25 → 4A 13:10 → INTOOBSV 13:10 → 4A 17:26
PROVIDERS: ADMIT Internal Medicine; ATTEND Internal Medicine
DX: R07.89 Other chest pain (principal); I10 Essential (primary) hypertension; E11.9 Type 2 diabetes mellitus without complications; K50.90 Crohn's disease, unspecified, without complications; R79.1 Abnormal coagulation profile; D64.9 Anemia, unspecified; C78.5 Secondary malignant neoplasm of large intestine and rectum; Z85.038 Personal history of other malignant neoplasm of large intestine; Z98.890 Other specified postprocedural states
CPT/HCPCS: 36415; 71045; 78452; 78582; 80048; 80053; 82962; 83036; 83550; 83735; 84100; 84484; 85025; 85379; 93005; 93010; 93017; 93970; 96372; 96374; 96375; 96376; 99284; A9502; A9540; A9558; G0378; J1170; J1650; J2405; J2785; J3010; J7030

== ENCOUNTER 2019-04-25 21:19 | Inpatient (IN) | payer MEDICAID ==
[2019-04-25] MEDS ORDERED: NACL 0.9% 1000 ML IV ONE (22:11)
[2019-04-25] MEDS ORDERED: LEVAQUIN 750MG/150ML 750 MG/150 ML BAG IV ONE (22:13)
[2019-04-25] MEDS ORDERED: VANCOMYCIN/NS 1 GM/250 ML 1 GM/250 ML BAG IV ONE (22:14)
[2019-04-25 22:41] LABS: Bacteria,Urine 4+ /HPF (Negative); Bilirubin,Urine MOD (Negative); Blood,Urine SM (Negative); Color,Urine Yellow (Yellow); Mucus,Urine 1+ /HPF; Urobilinogen,Urine < 2.0 mg/dL (<2.0)
[2019-04-25 22:42] LABS: WBC,Urine > 182.0 /HPF (0.0-6.0)
[2019-04-25 22:47] LABS: Ictotest,Urine Positive (Negative)
--- NOTE | 2019-04-25 22:50 | XRay Report ---
PROCEDURE: XR CHEST 1V AP TECHNIQUE: Chest radiograph single view. HISTORY: Sepsis COMPARISONS: March 26, 2019 . FINDINGS: Heart: Normal. Mediastinum/Vessels: Normal. Lungs/Pleural space: Normal. Bony thorax: No acute osseous abnormality. Life support devices: None. IMPRESSION: No acute cardiopulmonary abnormality. This document is electronically signed by Brady Rivera MD., April 25 2019 10:48:55 PM ET
--- NOTE | 2019-04-25 23:07 | XRay Report ---
PROCEDURE: XR ABDOMEN 2V TECHNIQUE: Abdominal series, including supine and upright AP views. HISTORY: abd pain COMPARISONS: None . FINDINGS: Bowel gas pattern: Air-fluid levels are noted in nondistended transverse colon. Intestinal gas is si tuated predominantly in nondistended colon. . Masses or calcifications: None . Bony structures: No significant abnormality . Pneumoperitoneum: None . Other: No significant findings . IMPRESSION: Findings most likely represent enterocolitis.. This document is electronically signed by Brady Rivera MD., April 25 2019 11:06:06 PM ET
[2019-04-25 23:50] LABS: Basophils % (Auto) 0.2 % (0.0-1.8); Hemoglobin 7.6 gm/dl (11.8-15.2); Lymphocytes # (Auto) 0.3 K/mm3 (1.2-5.4); Lymphocytes % (Auto) 2.5 % (13.4-35.0); Mean Corpuscular HGB Conc 33 % (32-34); Mean Corpuscular Volume 78 fl (84-94); Monocytes # (Auto) 1.5 K/mm3 (0.0-0.8); Platelet Count 240 K/mm3 (140-440); Red Blood Count 2.94 M/mm3 (3.65-5.03)
--- NOTE | 2019-04-25 23:51 | Emergency Department Report ---
HPI - General Chief Complaint: Abdominal Pain Time Seen by Provider: 04/25/19 22:05 - HPI HPI: 49-year-old male presents to the emergency department with a one to 2 day history of lower abdominal pain, some swelling and skin color changes with w armth and redness. He has a history of metastatic stomach/bladder/colon cancer, Crohn's disease, diabetes, hypertension and previous bowel obstruction. The abdominal pain is 10 out of 10 in intensity and feels like there is a "knife going through me." He arrived via EMS and received 400 mL of saline in route secondary to a fast heart rate and borderline low blood pressure. The patient was made a code sepsis upon arrival. Patient's primary care physician is Dr. Fatou Martin. He says he does not currently have an oncologist as he was referred to hospice secondary to his advanced cancers. ED Past Medical Hx - Past Medical History Previous Medical History?: Yes Hx Hypertension: Yes Hx Diabetes: Yes Additional medical history: Crohn's Disease, Bowel obstruction, stage 4 stomach, bladder and colon cancer - Surgical History Past Surgical History?: Yes Additional Surgical History: 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 Gastric surgery (patient uncertain what was done). fistula from colon to bladder - Social History Smoking Status: Current Every Day Smoker Substance Use Type: Alcohol, Marijuana - Medications Home Medications: Home Medications Medication Instructions Recorded Confirmed Last Taken Type ALPRAZolam [Xanax TAB] 0.5 mg PO HS 04/26/19 04/26/19 Unknown History Ciprofloxacin [Ciprofloxacin ORAL 500 mg PO Q12H 04/26/19 04/26/19 Unknown Histo ry LIQ] Morphine [Morphine TAB] 30 mg PO HS 04/26/19 04/26/19 Unknown History Oxycodone HCl/Acetaminophen 1 each PO Q6HR PRN 04/26/19 04/26/19 Unknown History [Percocet 10/325 mg] Promethazine [Phenergan] 25 mg PO TID PRN 04/26/19 04/26/19 Unknown History Sulfamethoxazole/Trimethoprim 1 each PO DAILY 04/26/19 04/26/19 Unknown History [Bactrim DS TAB] ED Review of Systems ROS: Stated complaint: ABDOMINAL PAIN/LOW BP/TACHY Other details as noted in HPI Constitutional: chills, fever Eyes: denies: eye pain, vision change ENT: denies: ear pain, throat pain Respiratory: denies: cough, shortness of breath Cardiovascular: denies: chest pain, palpitations Gastrointestinal: abdominal pain, nausea. denies: vomiting Genitourinary: denies: dysuria, discharge Musculoskeletal: denies: back pain, arthralgia Skin: change in color. denies: pruritus Neurological: denies: headache, weakness Physical Exam - Physical Exam Vital Signs: Vital Signs 04/25/19 21:36 Temperature 99.3 F Pulse Rate 144 H Respiratory 16 Rate Blood Pressure 92/59 O2 Sat by Pulse 96 Oximetry Physical Exam: GENERAL: The patient is ill-appearing. HENT: Normocephalic. Atraumatic. Patient has moist mucous membranes. EYES: Extraocular motions are intact. Pupils equal reactive to light bilaterally. NECK: Supple. Trachea is midline. CHEST/LUNGS: Clear to auscultation. There is no respiratory distress noted. HEART/CARDIOVASCULAR: Regular. There is moderate tachycardia. There is no murmur. ABDOMEN: Abdomen is soft. There is lower abdominal tenderness to palpation. Patient has normal bowel sounds. There is mild to moderate distention of the lower abdomen. SKIN: There is erythema and warmth to the lower abdomen with some mild fluctuance. NEURO: The patient is awake, alert, and oriented. The patient is cooperative. The patient has no focal neurologic deficits. The patient has normal speech. MUSCULOSKELETAL: There is no tenderness or deformity. There is no evidence of acute injury. ED Course Vital Signs 04/25/19 21:36 Temperature 99.3 F Pulse Rate 144 H Respiratory 16 Rate Blood Pressure 92/59 O2 Sat by Pulse 96 Oximetry - Consultations Consultation #1: I spoke with the general surgeon on-call, Dr. Berrios, who has agreed to consult on the patient regarding the abdominal wall abscess and partial small bowel obstruction. 04/26/19 05:36 - Central Line Placement Right IJ Consent Obtained: written consent Time Out Performed: Yes Patient Placed on Monitor/Pulse Ox: Yes Prep: mask, gown, gloves Central Line Prep: Chlorhexidine scrub Local Anesthesia Used: Lidocaine 1% Amount of Anesthesia Used (mls): 3 Ultrasound Used for Placement: Yes Central Line Lumen Inserted: triple Central Line Position: good blood return, all ports aspirated, flus, sutured in place with nyl Dressing Applied: Tegaderm, sterile gauze/tape Post Procedure X-Ray: tip of catheter in good p Patient Tolerated Procedure: well Complications: none ED Medical Decision Making - Lab Data Result diagrams: 04/25/19 23:28 04/25/19 23:28 - EKG Data -: EKG Interpreted by Me EKG shows normal: sinus rhythm, axis (left axis deviation), intervals, QRS complexes (Q waves to the anterior and inferior leads), ST-T waves Rate: tachycardia (120 beats per minute) - EKG Data When compared to previous EKG there are: previous EKG unavailable Interpretation: other (sinus tachycardia, left axis deviation, Q waves to the anterior and inferior leads) - Radiology Data Radiology results: report reviewed, image reviewed interpreted by me: Chest x-ray does not show any pneumonia, pneumothorax, effusions or any acute process. Abd X-ray shows some dilation of the intestines. No free air. PROCEDURE: CT ABDOMEN PELVIS W CON TECHNIQUE: Computerized axial tomography of the abdomen and pelvis was performed after the administration of IV iodinated nonionic contrast. CT DOSE LENGTH PRODUCT: 2366.7 mGycm HISTORY: Abd pain, hx of cancer, sepsis COMPARISONS: 02/27/2018 . FINDINGS: The lung bases do not show infiltrates or effusions. The liver, gallbladder and biliary tree appear normal. The pancreas and spleen appear normal. The adrenal glands are normal in size. The kidneys enhance normally. There is no evidence of hydronephrosis. There is mild to moderate distention of small bowel loops with air-fluid levels. Partial mechanical small bowel obstruction cannot be excluded. There is considerable fluid noted in the colon which is nonspecific. The bilateral ostomy sites have been taken down since the previous study. Anteriorly in the anterior abdominal wall in the lower abdomen is a subcutaneous fluid collection containing air measuring 8.3 x 5.3 x 10.7 cm. There is surrounding inflammatory changes adjacent to it. It is contiguous with the underlying rectus muscles. Free fluid is not seen. The bladder is normal in size and contains a small focus of air. Clinical history is needed whether there is been recent instrumentation. The prostate gland appears normal. The skeletal structures do not show acute changes. IMPRESSION: Subcutaneous fluid collection containing air in the anterior abdominal wall inferiorly contiguous with the rectus muscles with surrounding inflammatory changes. The finding is suspicious for an abscess. The study should be repeated with oral and rectal contrast enhancement to ensure that this is not continuous with an adjacent bowel loop. Mild to moderate distended small bowel loops proximal. Partial mechanical small bowel obstruction cannot be excluded. Considerable fluid noted in the colon. Interval takedown of the bilateral ostomy sites since the study. Small focus of air in the bladder. Clinical history is needed whether there is been recent instrumentation to account for this. This document is electronically signed by Gerald Heath MD., April 26 2019 02:19:30 AM ET Transcribed By: RB Dictated By: GERALD HEATH MD Electronically Authenticated By: GERALD HEATH MD Signed Date/Time: 04/26/19 0221 - Medical Decision Making This patient presents to the emergency department with a complaint of abdominal wall distention and pain and erythema. The patient presents as a code sepsis as he has a fever, tachycardia. He was empirically treated with some Levaquin and vancomycin. Labs show some anemia with hemoglobin of 7.6, lactic acidosis and a urinary tract infection. CT scan of the abdomen and pelvis with IV contrast was done that shows a large abdominal abscess that is confluent with the abdominal rectus muscle, and there are signs of a partial small bowel instruction. The patient received 4 L of IV fluid but continued to have some hypotension. Therefore a central line was placed and the patient has been started on pressors. He will be admitted to the ICU for further evaluation and treatment and was accepted for admission by the hospitalist, Dr Jean Baptiste. - Differential Diagnosis sepsis, cellulitis, abdominal abscess, SBO, malignancy Critical Care Time: Yes Critical care time in (mins) excluding proc time.: 35 Critical care attestation.: If time is entered above; I have spent that time in minutes in the direct care of this critically ill patient, excluding procedure time. Critical care time was spent on this patient in doing his initial evaluation, multiple re-evaluations, ordering interpretation of labs and imaging, ordering of medications including pressors, discussion with the general surgeon and discussion with the patient and his family. Critical Care Time: 35 minutes ED Disposition Clinical Impression: Partial small bowel obstruction, Acute abdominal pain, Abdominal wall cellulitis, Abdominal abscess Sepsis Qualifiers: Sepsis type: sepsis due to unspecified organism Qualified Code(s): A41.9 - Sepsis, unspecified organism Hypotension Qualifiers: Hypotension type: unspecified hypotension type Qualified Code(s): I95.9 - Hypotension, unspecified Disposition: 09 OP ADMIT IP TO THIS HOSP Is pt being admited?: Yes Condition: Serious Time of Disposition: 05:40
[2019-04-26 00:15] LABS: Albumin 2.5 g/dL (3.9-5); BUN/Creatinine Ratio 11; Blood Urea Nitrogen 16 mg/dL (9-20); Calcium 7.9 mg/dL (8.4-10.2); Hemolysis Index 4
[2019-04-26] MEDS ORDERED: NACL 0.9% 1000 ML 1,000 ML IV ONE ×2 (00:20→02:10)
[2019-04-26 00:25] LABS: Alanine Aminotransferase < 5 units/L (7-56)
[2019-04-26] MEDS ORDERED: NACL 0.9% 1000 ML 1,000 ML ONE ×2 (00:25→10:00)
[2019-04-26] MEDS ORDERED: TYLENOL PO ONE (00:25)
[2019-04-26] MEDS ORDERED: SUBLIMAZE IV ONE (00:52)
--- NOTE | 2019-04-26 02:21 | Cat Scan Report ---
PROCEDURE: CT ABDOMEN PELVIS W CON TECHNIQUE: Computerized axial tomography of the abdomen and pelvis was performed after the administr ation of IV iodinated nonionic contrast. CT DOSE LENGTH PRODUCT: 2366.7 mGycm HISTORY: Abd pain, hx of cancer, sepsis COMPARISONS: 02/27/2018 . FINDINGS: The lung bases do not show infiltrates or effusions. The liver, gallbladder and biliary tree appear normal. The pancreas and spleen appear normal. The adr enal glands are normal in size. The kidneys enhance normally. There is no evidence of hydronephrosis. There is mild to moderate distention of small bowel loops with air-fluid levels. Partial mechanical s mall bowel obstruction cannot be excluded. There is considerable fluid noted in the colon which is no nspecific. The bilateral ostomy sites have been taken down since the previous study. Anteriorly in the anterior abdominal wall in the lower abdomen is a subcutaneous fluid collection con taining air measuring 8.3 x 5.3 x 10.7 cm. There is surrounding inflammatory changes adjacent to it. It is contiguous with the underlying rectus muscles. Free fluid is not seen. The bladder is normal in size and contains a small focus of air. Clinical his tory is needed whether there is been recent instrumentation. The prostate gland appears normal. The s keletal structures do not show acute changes. IMPRESSION: Subcutaneous fluid collection containing air in the anterior abdominal wall inferiorly contiguous wit h the rectus muscles with surrounding inflammatory changes. The finding is suspicious for an abscess. The study should be repeated with oral and rectal contrast enhancement to ensure that this is not co ntinuous with an adjacent bowel loop. Mild to moderate distended small bowel loops proximal. Partial mechanical small bowel obstruction can not be excluded. Considerable fluid noted in the colon. Interval takedown of the bilateral ostomy sites since the study. Small focus of air in the bladder. Clinical history is needed whether there is been recent instrument ation to account for this. This document is electronically signed by Gerald Heath MD., April 26 2019 02:19:30 AM ET
[2019-04-26] MEDS ORDERED: TYLENOL PO PRN (03:24)
[2019-04-26] MEDS ORDERED: ZOFRAN IV PRN (03:24)
[2019-04-26] MEDS ORDERED: LEVOPHED DRIP 4 MG/NS 250 ML 4 MG/250 ML BAG IV ONE (03:33)
[2019-04-26] MEDS: LEVOPHED DRIP 4 MG/NS 250 ML 4 MG/250 ML BAG IV SCH ×2 (03:35→15:25)
--- NOTE | 2019-04-26 03:52 | History and Physical Report ---
History of Present Illness Date of examination: 04/26/19 Chief complaint: Abdominal swelling History of present illness: Patient is a 49-year-old male with recent history of stage IV adenocarcinoma of the colon who presented to the ED on account of 5 days history of lower abdominal swelling. He has associated pain, abdominal wall redness, nausea with vomiting, diarrhea, fever with chills and lightheadedness. He denies chest pain, shortness of breath, palpitation, leg swelling, orthopnea, PND, headaches, syncope or loss of consciousness. Per patient, he has been on hospice care for 3 weeks with DO NOT INTUBATE/DO NOT RESUSCITATE status. However, he now wants to be full code since he is not at the point of dying currently. Past History Past Medical History: other (Crohn's disease, stage IV adenocarcinoma of the colon ) Past Surgical History: Other (multiple abdominal surgeries with fistula formation from the colon to the bladder, neck surgery) Social history: other (patient has remote history of cigarette smoking, he quit 15 years ago. She admits to occasional marijuana use but denies alcohol or other illicit drug use) Family history: other (grandfather had from an unknown cancer at unknown age.) Medications and Allergies Allergies Allergy/AdvReac Type Severity Reaction Status Date / Time No Known Allergies Allergy Verified 04/25/19 21:41 Home Medications Medication Instructions Recorded Confirmed Last Taken Type ALPRAZolam [Xanax TAB] 0.5 mg PO HS 04/26/19 04/26/19 Unknown History Ciprofloxacin [Ciprofloxacin ORAL 500 mg PO Q12H 04/26/19 04/26/19 Unknown History LIQ] Morphine [Morphine TAB] 30 mg PO HS 04/26/19 04/26/19 Unknown History Oxycodone HCl/Acetaminophen 1 each PO Q6HR PRN 04/26/19 04/26/19 Unknown History [Percocet 10/325 mg] Promethazine [Phenergan] 25 mg PO TID PRN 04/26/19 04/26/19 Unknown History Sulfamethoxazole/Trimethoprim 1 each PO DAILY 04/26/19 04/26/19 Unknown History [Bactrim DS TAB] Active Meds: Active Medications Acetaminophen (Tylenol) 650 mg PO Q4H PRN PRN Reason: Pain MILD(1-3)/Fever >100.5/SHOOK Heparin Sodium (Porcine) (Heparin) 5,000 unit SUB-Q Q8HR KELLY Hydromorphone HCl (Dilaudid) 1 mg IV Q3H PRN PRN Reason: Pain , Severe (7-10) Norepinephrine (Levophed Drip 4 Mg/Ns 250 Ml) 4 mg in 250 mls @ 7.5 mls/hr IV TITR KELLY; Protocol Last Admin: 04/26/19 03:35 Dose: 2 mcg/min, 7.5 mls/hr Documented by: Sodium Chloride (Nacl 0.9% 1000 Ml) 1,000 mls @ 150 mls/hr IV DIRECT KELLY Piperacillin Sod/Tazobactam Sod (Zosyn/Ns 3.375gm/50ml) 3.375 gm in 50 mls @ 100 mls/hr IV Q8HR KELLY; Protocol Morphine Sulfate (Morphine) 2 mg IV Q4H PRN PRN Reason: Pain, Moderate (4-6) Ondansetron HCl (Zofran) 4 mg IV Q8H PRN PRN Reason: Nausea And Vomiting Sodium Chloride (Sodium Chloride Flush Syringe 10 Ml) 10 ml IV BID KELLY Sodium Chloride (Sodium Chloride Flush Syringe 10 Ml) 10 ml IV PRN PRN PRN Reason: LINE FLUSH Review of Systems All systems: negative (Except as documented in the HPI, 14 point system reviewed were negative) Exam - Constitutional Vitals: Temp Pulse Resp BP Pulse Ox 101.6 F H 110 H 23 76/41 100 04/25/19 22:08 04/26/19 03:00 04/26/19 03:00 04/26/19 03:00 04/26/19 03:00 General appearance: Present: no acute distress - EENT Eyes: Present: PERRL, EOM intact ENT: hearing intact, clear oral mucosa - Neck Neck: Present: supple, normal ROM - Respiratory Respiratory effort: normal Respiratory: bilateral: CTA - Cardiovascular Rhythm: regular Heart Sounds: Present: S1 & S2. Absent: rub, click - Extremities Extremities: pulses symmetrical, No edema Peripheral Pulses: within normal limits - Abdominal General gastrointestinal: Present: tender (lower abdomen), distended, normal bowel sounds, other (firm on palpation on the lower abdomen) Male genitourinary: Present: deferred - Integumentary Integumentary: Present: dry, erythema (lower abdomen) - Musculoskeletal Musculoskeletal: gait normal, strength equal bilaterally - Psychiatric Psychiatric: appropriate mood/affect, intact judgment & insight - Neurologic Neurologic: CNII-XII intact, moves all extremities Results - Labs CBC & Chem 7: 04/25/19 23:28 04/25/19 23: Labs: Laboratory Last Values WBC 10.1 K/mm3 (4.5-11.0) 04/25/19 23: RBC 2.94 M/mm3 (3.65-5.03) L 04/25/19: Hgb 7.6 gm/dl (11.8-15.2) L 04/25/19: Hct 23.0 % (35.5-45.6) L 04/25/19: MCV 78 fl (84-94) L 04/25/19: MCH 26 pg (28-32) L 04/25/19: MCHC 33 % (32-34) 04/25/19: RDW 18.0 % (13.2-15.2) H 04/25/19: Plt Count 240 K/mm3 (140-440) 04/25/19: Lymph % (Auto) 2.5 % (13.4-35.0) L 04/25/19 23: [place] % (Auto) 15.0 % (0.0-7.3) H 04/25/19 23: Eos % (Auto) 0.0 % (0.0-4.3) 04/25/19: Baso % (Auto) 0.2 % (0.0-1.8) 04/25/19: Lymph # 0.3 K/mm3 (1.2-5.4) L 04/25/19 23: [place] # 1.5 K/mm3 (0.0-0.8) H 04/25/19 23: Eos # 0.0 K/mm3 (0.0-0.4) 04/25/19 23: Baso # 0.0 K/mm3 (0.0-0.1) 04/25/19 23: Seg Neutrophils % 82.3 % (40.0-70.0) H 04/25/19: Seg Neutrophils # 8.3 K/mm3 (1.8-7.7) H 04/25/19 23:28 APTT 38.0 Sec. (24.2-36.6) H 04/25/19 23:28 Sodium 136 mmol/L (137-145) L 04/25/19 23:28 Potassium 3.7 mmol/L (3.6-5.0) 04/25/19 23:28 Chloride 100.6 mmol/L (98-107) 04/25/19 23:28 Carbon Dioxide 18 mmol/L (22-30) L 04/25/19 23:28 21 mmol/L 04/25/19 23:28 BUN 16 mg/dL (9-20) 04/25/19 23:28 1.4 mg/dL (0.8-1.5) 04/25/19 23:28 Estimated GFR 54 ml/min 04/25/19 23:28 11 % 04/25/19 23:28 Glucose 106 mg/dL (75-100) H 04/25/19 23:28 Lactic Acid 3.20 mmol/L (0.7-2.0) H* 04/26/19 01:17 Calcium 7.9 mg/dL (8.4-10.2) L 04/25/19 23:28 0.20 mg/dL (0.1-1.2) 04/25/19 23:28 AST 7 units/L (5-40) 04/25/19 23:28 ALT < 5 units/L (7-56) L 04/25/19 23:28 92 units/L (35-129) 04/25/19 23:28 5.4 g/dL (6.3-8.2) L 04/25/19 23:28 2.5 g/dL (3.9-5) L 04/25/19 23:28 0.9 % 04/25/19 23:28 22 units/L (13-60) 04/25/19 23:28 Yellow (Yellow) 04/25/19 22:20 Turbid (Clear) 04/25/19 22:20 5.0 (5.0-7.0) 04/25/19 22:20 Ur Specific [place] 1.027 (1.003-1.030) 04/25/19 22:20 100 mg/dl mg/dL (Negative) 04/25/19 22:20 Neg mg/dL (Negative) 04/25/19 22:20 Tr mg/dL (Negative) 04/25/19 22:20 Sm (Negative) 04/25/19 22:20 Neg (Negative) 04/25/19 22:20 Mod (Negative) 04/25/19 22:20 Positive (Negative) 04/25/19 22:20 < 2.0 mg/dL (<2.0) 04/25/19 22:20 Ur Leukocyte Esterase Sm (Negative) 04/25/19 22:20 > 182.0 /HPF (0.0-6.0) H 04/25/19 22:20 115.0 /HPF (0.0-6.0) 04/25/19 22:20 4+ /HPF (Negative) 04/25/19 22:20 3+ /HPF 04/25/19 22:20 1+ /HPF 04/25/19 22:20 - Imaging and Cardiology CT scan - abdomen: report reviewed CT scan - pelvis: report reviewed Assessment and Plan Assessment and plan: Septic shock -Probably secondary to abdominal abscess versus UTI -On sepsis protocol -On IV antibiotic with Zosyn -Blood and urine cultures pending Possible abdominal abscess -CT abdomen/pelvis suspicious for abscess. -CT abdomen/pelvis with oral and rectal contrast recommended by the radiologist for further evaluation -Surgery consulted in the ED Possible partial small bowel obstruction -On nothing by mouth for bowel rest, will monitor Metabolic acidosis -On IV fluid, will monitor bicarbonate level Anemia of chronic disease -H&H stable, will monitor levels Stage IV adenocarcinoma of colon -On hospice care Moderate protein calorie malnutrition -We'll consult dietitian DVT prophylaxis with heparin Disposition: I spent 45 minutes providing critical care to this seriously ill patient who requires frequent reassessments of his cardiovascular status
[2019-04-26] MEDS: DILAUDID IV PRN ×5 (03:58→20:56)
[2019-04-26] MEDS: NACL 0.9% 1000 ML 1,000 ML IV SCH ×4 (04:10→19:14)
[2019-04-26] MEDS ORDERED: ZOSYN/NS 3.375GM/50ML 3.375 GM/50 ML BAG IV SCH (06:00)
--- NOTE | 2019-04-26 06:00 | XRay Report ---
PROCEDURE: XR CHEST 1V AP TECHNIQUE: Chest radiograph single view. HISTORY: central line placement COMPARISONS: None . FINDINGS: Heart: Normal. Mediastinum/Vessels: Normal. Lungs/Pleural space: Normal. Bony thorax: No acute osseous abnormality. Life support devices: Right central catheter ends in the SVC. IMPRESSION: There is no evidence of an acute cardiopulmonary process. The right central catheter end s in the SVC. This document is electronically signed by Kaya Lopez DO., April 26 2019 05:58:24 AM ET
[2019-04-26] MEDS ORDERED: ZOSYN/NS 4.5GM/100ML 4.5 GM/100 ML VIAL IV ONE (06:03)
[2019-04-26] MEDS ORDERED: HEPARIN ONE (06:03)
[2019-04-26] MEDS: HEPARIN SUB-Q SCH ×3 (06:06→21:03)
[2019-04-26] MEDS: ZOSYN/NS 4.5GM/100ML 4.5 GM/100 ML VIAL IV SCH ×3 (06:10→21:01)
[2019-04-26] MEDS ORDERED: DILAUDID ONE (07:47)
[2019-04-26] MEDS: MORPHINE IV PRN ×4 (10:36→23:11)
[2019-04-26] MEDS: SODIUM CHLORIDE FLUSH SYRINGE 10 ML IV SCH ×2 (11:36→21:30)
[2019-04-26] MEDS ORDERED: XYLOCAINE 1%/ EPI 1:100,000 INFILTRATI ONE (15:00)
[2019-04-26] MEDS ORDERED: VERSED IV ONE (15:04)
--- NOTE | 2019-04-26 16:25 | Procedure Note ---
Date of procedure: 04/26/19 Pre-op diagnosis: abdominal wall abscess Post-op diagnosis: same Procedure: Incision and drainage of abdominal wall abscess Consent had been obtained. Timeout was done. Sterile prep and drape was performed. 1% lidocaine with epinephrine was used to anesthetize the old midline incision scar. This area was opened sharply with a #11 blade. There was an immediate avina of air. There was a foul smell and intestinal-appearing fluid at the base. Cultures were taken. It appeared as though I could see the underlying fascia with some stitches exposed. I think there were gaps in the fascia. Under one of the gaps, there was drainage of yellowish fluid. I was concerned this could be coming from a colonic source. There was no obvious visible opening into the bowel. The wound was thoroughly washed out and then packed with Kerlix gauze. Patient tolerated the procedure well. There were no complications. Findings: large amount of air in cavity. foul smelling contents. Fascia appears to have some gaps. Fluid appears to have a colonic type appearance Implants: none Anesthesia: MAC, local Surgeon: FELICITAS BLAND Estimated blood loss: minimal Pathology: list (culture swabs) Specimen disposition: to lab Condition: stable Disposition: ICU
--- NOTE | 2019-04-26 16:27 | Consultation ---
History of Present Illness Consult date: 04/26/19 Reason for consult: abdominal pain Requesting physician: SIDDHARTH HART Chief complaint: lower abdominal pain - History of present illness History of present illness: 49yo M who is well-known to our service presents with a 2 to three-day history of lower abdominal pain and erythema. We have previously taking care of him for his Crohn's flareups as well as for a colonic mass. He was found to have metastatic colon cancer and was given a diverting ileostomy. We did not see him again after he finished his care in the wound clinic in August 2018. He is currently in home hospice. He reports that he went to [place] and had the ileostomy reversed in January of this year. 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 [facility] said that they would not fix this. He now comes with a 2 to three-day history of lower abdominal pain and redness. He has been having fevers and feeling ill. CT scan done in the emergency room showed an abdominal wall abscess. Gen. surgery was consult to address this. Past History Past Medical History: other (Crohn's disease, stage IV adenocarcinoma of the colon ) Past Surgical History: Other (multiple abdominal surgeries with fistula formation from the colon to the bladder, neck surgery) Social history: other (patient has remote history of cigarette smoking, he quit 15 years ago. She admits to occasional marijuana use but denies alcohol or other illicit drug use) Family history: other (grandfather had from an unknown cancer at unknown age.) Medications and Allergies Allergies Allergy/AdvReac Type Severity Reaction Status Date / Time No Known Allergies Allergy Verified 04/25/19 21:41 Home Medications Medication Instructions Recorded Confirmed Last Taken Type ALPRAZolam [Xanax TAB] 0.5 mg PO HS 04/26/19 04/26/19 Unknown History Ciprofloxacin [Ciprofloxacin ORAL 500 mg PO Q12H 04/26/19 04/26/19 Unknown History LIQ] Morphine [Morphine TAB] 30 mg PO HS 04/26/19 04/26/19 Unknown History Oxycodone HCl/Acetaminophen 1 each PO Q6HR PRN 04/26/19 04/26/19 Unknown History [Percocet 10/325 mg] Promethazine [Phenergan] 25 mg PO TID PRN 04/26/19 04/26/19 Unknown History Sulfamethoxazole/Trimethoprim 1 each PO DAILY 04/26/19 04/26/19 Unknown History [Bactrim DS TAB] Active Meds: Active Medications Acetaminophen (Tylenol) 650 mg PO Q4H PRN PRN Reason: Pain MILD(1-3)/Fever >100.5/SHOOK Last Admin: 04/26/19 11:05 Dose: 650 mg Documented by: Heparin Sodium (Porcine) (Heparin) 5,000 unit SUB-Q Q8HR KELLY Last Admin: 04/26/19 14:33 Dose: 5,000 unit Documented by: Hydromorphone HCl (Dilaudid) 1 mg IV Q3H PRN PRN Reason: Pain , Severe (7-10) Last Admin: 04/26/19 12:15 Dose: 1 mg Documented by: Norepinephrine (Levophed Drip 4 Mg/Ns 250 Ml) 4 mg in 250 mls @ 7.5 mls/hr IV TITR [facility]; Protocol Last Admin: 04/26/19 15:25 Dose: 6 mcg/min, 22.5 mls/hr Documented by: Sodium Chloride (Nacl 0.9% 1000 Ml) 1,000 mls @ 150 mls/hr IV DIRECT KELLY Last Admin: 04/26/19 15:24 Dose: 150 mls/hr Documented by: Piperacillin Sod/Tazobactam Sod (Zosyn/Ns 4.5gm/100ml) 4.5 gm in 100 mls @ 200 mls/hr IV Q8HR [facility]; Protocol Last Admin: 04/26/19 06:10 Dose: 200 mls/hr Documented by: Morphine Sulfate (Morphine) 2 mg IV Q4H PRN PRN Reason: Pain, Moderate (4-6) Last Admin: 04/26/19 14:58 Dose: 2 mg Documented by: Ondansetron HCl (Zofran) 4 mg IV Q8H PRN PRN Reason: Nausea And Vomiting Sodium Chloride (Sodium Chloride Flush Syringe 10 Ml) 10 ml IV BID [facility] Last Admin: 04/26/19 11:36 Dose: Not Given Documented by: Sodium Chloride (Sodium Chloride Flush Syringe 10 Ml) 10 ml IV PRN PRN PRN Reason: LINE FLUSH Review of Systems - Constitutional fever, chills, weakness - Cardiovascular no chest pain, no shortness of breath - Respiratory no cough - Gastrointestinal abdominal pain, nausea, no vomiting - Integumentary redness - Psychiatric anxiety Exam Vital Signs Temp Pulse Resp BP Pulse Ox 99.3 F 144 H 16 92/59 96 04/25/19 21:36 04/25/19 21:36 04/25/19 21:36 04/25/19 21:36 04/25/19 21:36 - General physical appearance Positive: no distress, other (ill appearing) - Eyes Positive: normal occular movement - Respiratory Positive: normal expansion, normal respiratory effort, clear to auscultation - Cardiovascular Rhythm: regular - Abdomen Abdomen: Present: soft, tender ( in lower abdomen), distended, guarding, surgical scars (well healed). Absent: rigid - Integumentary other (lower abdomen is erythematous) - Neurologic Neurologic: alert and oriented to time, place and person - Psychiatric Psychiatric: appropriate mood/affect, intact judgment & insight, cooperative Results - Labs 04/25/19 23:28 04/25/19 23:28 Abnormal lab results 04/25/19 04/25/19 04/25/19 Range/Units 22:20 23:28 23:28 RBC 2.94 L (3.65-5.03) M/mm3 Hgb 7.6 L (11.8-15.2) gm/dl Hct 23.0 L (35.5-45.6) % MCV 78 L (84-94) fl MCH 26 L (28-32) pg RDW 18.0 H (13.2-15.2) % Lymph % (Auto) 2.5 L (13.4-35.0) % [place] % (Auto) 15.0 H (0.0-7.3) % Lymph # 0.3 L (1.2-5.4) K/mm3 [place] # 1.5 H (0.0-0.8) K/mm3 Seg Neutrophils % 82.3 H (40.0-70.0) % Seg Neutrophils # 8.3 H (1.8-7.7) K/mm3 APTT 38.0 H (24.2-36.6) Sec. Sodium (137-145) mmol/L Carbon Dioxide (22-30) mmol/L Glucose (75-100) mg/dL Lactic Acid (0.7-2.0) mmol/L Calcium (8.4-10.2) mg/dL ALT (7-56) units/L Total Protein (6.3-8.2) g/dL Albumin (3.9-5) g/dL Urine WBC (Auto) > 182.0 H (0.0-6.0) /HPF 04/25/19 04/25/19 04/26/19 Range/Units 23:28 23:36 01:17 RBC (3.65-5.03) M/mm3 Hgb (11.8-15.2) gm/dl Hct (35.5-45.6) % MCV (84-94) fl MCH (28-32) pg RDW (13.2-15.2) % Lymph % (Auto) (13.4-35.0) % [place] % (Auto) (0.0-7.3) % Lymph # (1.2-5.4) K/mm3 [place] # (0.0-0.8) K/mm3 Seg Neutrophils % (40.0-70.0) % Seg Neutrophils # (1.8-7.7) K/mm3 APTT (24.2-36.6) Sec. Sodium 136 L (137-145) mmol/L Carbon Dioxide 18 L (22-30) mmol/L Glucose 106 H (75-100) mg/dL Lactic Acid 3.00 H* 3.20 H* (0.7-2.0) mmol/L Calcium 7.9 L (8.4-10.2) mg/dL ALT < 5 L (7-56) units/L Total Protein 5.4 L (6.3-8.2) g/dL Albumin 2.5 L (3.9-5) g/dL Urine WBC (Auto) (0.0-6.0) /HPF Diabetes panel 04/25/19 Range/Units 23:28 Sodium 136 L (137-145) mmol/L Potassium 3.7 (3.6-5.0) mmol/L Chloride 100.6 (98-107) mmol/L Carbon Dioxide 18 L (22-30) mmol/L BUN 16 (9-20) mg/dL Creatinine 1.4 (0.8-1.5) mg/dL Glucose 106 H (75-100) mg/dL Calcium 7.9 L (8.4-10.2) mg/dL AST 7 (5-40) units/L ALT < 5 L (7-56) units/L Alkaline Phosphatase 92 (35-129) units/L Total Protein 5.4 L (6.3-8.2) g/dL Albumin 2.5 L (3.9-5) g/dL Calcium panel 04/25/19 Range/Units 23:28 Calcium 7.9 L (8.4-10.2) mg/dL Albumin 2.5 L (3.9-5) g/dL Pituitary panel 04/25/19 Range/Units 23:28 Sodium 136 L (137-145) mmol/L Potassium 3.7 (3.6-5.0) mmol/L Chloride 100.6 (98-107) mmol/L Carbon Dioxide 18 L (22-30) mmol/L BUN 16 (9-20) mg/dL Creatinine 1.4 (0.8-1.5) mg/dL Glucose 106 H (75-100) mg/dL Calcium 7.9 L (8.4-10.2) mg/dL Adrenal panel 04/25/19 Range/Units 23:28 Sodium 136 L (137-145) mmol/L Potassium 3.7 (3.6-5.0) mmol/L Chloride 100.6 (98-107) mmol/L Carbon Dioxide 18 L (22-30) mmol/L BUN 16 (9-20) mg/dL Creatinine 1.4 (0.8-1.5) mg/dL Glucose 106 H (75-100) mg/dL Calcium 7.9 L (8.4-10.2) mg/dL Total Bilirubin 0.20 (0.1-1.2) mg/dL AST 7 (5-40) units/L ALT < 5 L (7-56) units/L Alkaline Phosphatase 92 (35-129) units/L Total Protein 5.4 L (6.3-8.2) g/dL Albumin 2.5 L (3.9-5) g/dL - Imaging CT scan - abdomen: report reviewed, image reviewed CT scan - pelvis: report reviewed, image reviewed Assessment and Plan - Patient Problems (1) Abdominal wall abscess at site of surgical wound Current Visit: Yes Status: Acute Plan to address problem: Patient does appear ill. He is in need of incision and drainage of the abscess collection. Procedure, risks, benefits were discussed. All questions were answered. Consent was obtained. Plan is to perform this at the bedside in the ICU. I will gather the necessary tools and materials and perform the procedure today. Discussed with Dr. Valentine. Please call with questions. Time=30min
--- NOTE | 2019-04-26 16:54 | Event Note ---
Date: 04/26/19 49-year-old male was admitted earlier this morning for the management of severe sepsis secondary to abdominal abscess. Patient is on IV antibiotics, IV fluids and surgery consulted. Patient had stage IV metastatic colon cancer. Continue management as outlined in H&P.
[2019-04-26] MEDS: SODIUM CHLORIDE FLUSH SYRINGE 10 ML IV PRN ×3 (19:13→23:12)
[2019-04-27] MEDS: MORPHINE IV PRN ×4 (02:25→20:17)
[2019-04-27] MEDS: LEVOPHED DRIP 4 MG/NS 250 ML 4 MG/250 ML BAG IV SCH ×2 (02:27→16:49)
[2019-04-27] MEDS: SODIUM CHLORIDE FLUSH SYRINGE 10 ML IV PRN (02:28)
[2019-04-27] MEDS: NACL 0.9% 1000 ML 1,000 ML IV SCH ×2 (02:34→10:00)
[2019-04-27] MEDS: DILAUDID IV PRN ×6 (04:38→22:06)
[2019-04-27] MEDS: HEPARIN SUB-Q SCH ×3 (05:07→21:18)
[2019-04-27] MEDS: ZOSYN/NS 4.5GM/100ML 4.5 GM/100 ML VIAL IV SCH ×3 (05:08→21:18)
[2019-04-27 05:51] LABS: Basophils % (Auto) 0.2 % (0.0-1.8); Eosinophils % (Auto) 0.1 % (0.0-4.3); Hematocrit 22.7 % (35.5-45.6); Hemoglobin 7.2 gm/dl (11.8-15.2); Lymphocytes # (Auto) 0.5 K/mm3 (1.2-5.4); Lymphocytes % (Auto) 3.8 % (13.4-35.0); Mean Corpuscular HGB Conc 32 % (32-34); Mean Corpuscular Volume 79 fl (84-94); Monocytes # (Auto) 1.3 K/mm3 (0.0-0.8); Monocytes % (Auto) 10.9 % (0.0-7.3); Platelet Count 247 K/mm3 (140-440); Red Blood Count 2.89 M/mm3 (3.65-5.03); Red Cell Distribution Width 18.1 % (13.2-15.2)
[2019-04-27 06:11] LABS: BUN/Creatinine Ratio 10; Blood Urea Nitrogen 7 mg/dL (9-20); Calcium 7.3 mg/dL (8.4-10.2); Hemolysis Index 58
[2019-04-27] MEDS ORDERED: VERSED IV PRN (10:22)
[2019-04-27] MEDS ORDERED: DILAUDID IV PRN (10:22)
[2019-04-27] MEDS ORDERED: NACL 0.9% 500 ML 500 ML IV ONE (12:12)
--- NOTE | 2019-04-27 12:18 | Consultation ---
History of Present Illness - Reason for Consult Consult date: 04/27/19 Sepsis with shock Requesting physician: RASTA JOVEL - History of Present Illness 49 y/o male, with stage IV colon ca on home hospice admitted with abdominal pain. Patient found to have a large abdominal wall abscess that surgery I and D's on yesterday. Patient is currently awake and alert but requiring pressors (levophed at 6mcgs). He is in pain, mainly from his cancer and mets and also is anemic. Remainder of the review is negative. Past History Past Medical History: other (Crohn's disease, stage IV adenocarcinoma of the colon ) Past Surgical History: Other (multiple abdominal surgeries with fistula formation from the colon to the bladder, neck surgery) Social history: other (patient has remote history of cigarette smoking, he quit 15 years ago. She admits to occasional marijuana use but denies alcohol or other illicit drug use) Family history: other (grandfather had from an unknown cancer at unknown age.) Medications and Allergies Allergies Allergy/AdvReac Type Severity Reaction Status Date / Time No Known Allergies Allergy Verified 04/25/19 21:41 Home Medications Medication Instructions Recorded Confirmed Last Taken Type ALPRAZolam [Xanax TAB] 0.5 mg PO HS 04/26/19 04/26/19 Unknown History Ciprofloxacin [Ciprofloxacin ORAL 500 mg PO Q12H 04/26/19 04/26/19 Unknown History LIQ] Morphine [Morphine TAB] 30 mg PO HS 04/26/19 04/26/19 Unknown History Oxycodone HCl/Acetaminophen 1 each PO Q6HR PRN 04/26/19 04/26/19 Unknown History [Percocet 10/325 mg] Promethazine [Phenergan] 25 mg PO TID PRN 04/26/19 04/26/19 Unknown History Sulfamethoxazole/Trimethoprim 1 each PO DAILY 04/26/19 04/26/19 Unknown History [Bactrim DS TAB] Active Meds: Active Medications Acetaminophen (Tylenol) 650 mg PO Q4H PRN PRN Reason: Pain MILD(1-3)/Fever >100.5/SHOOK Last Admin: 04/26/19 11:05 Dose: 650 mg Documented by: Heparin Sodium (Porcine) (Heparin) 5,000 unit SUB-Q Q8HR [facility] Last Admin: 04/27/19 05:07 Dose: 5,000 unit Documented by: Hydromorphone HCl (Dilaudid) 1 mg IV Q3H PRN PRN Reason: Pain , Severe (7-10) Last Admin: 04/27/19 07:22 Dose: 1 mg Documented by: Hydromorphone HCl (Dilaudid) 0.5 mg IV DAILY PRN PRN Reason: Wound Care Norepinephrine (Levophed Drip 4 Mg/Ns 250 Ml) 4 mg in 250 mls @ 7.5 mls/hr IV TITR KELLY; Protocol Last Titration: 04/27/19 02:42 Dose: 7 mcg/min, 26.25 mls/hr Documented by: Sodium Chloride (Nacl 0.9% 1000 Ml) 1,000 mls @ 150 mls/hr IV DIRECT KELLY Last Admin: 04/27/19 10:00 Dose: 150 mls/hr Documented by: Piperacillin Sod/Tazobactam Sod (Zosyn/Ns 4.5gm/100ml) 4.5 gm in 100 mls @ 200 mls/hr IV Q8HR KELLY; Protocol Last Admin: 04/27/19 05:08 Dose: 200 mls/hr Documented by: Midazolam HCl (Versed) 3 mg IV DAILY PRN PRN Reason: Wound Care Morphine Sulfate (Morphine) 2 mg IV Q4H PRN PRN Reason: Pain, Moderate (4-6) Last Admin: 04/27/19 10:07 Dose: 2 mg Documented by: Ondansetron HCl (Zofran) 4 mg IV Q8H PRN PRN Reason: Nausea And Vomiting Sodium Chloride (Sodium Chloride Flush Syringe 10 Ml) 10 ml IV BID KELLY Last Admin: 04/26/19 21:30 Dose: 10 ml Documented by: Sodium Chloride (Sodium Chloride Flush Syringe 10 Ml) 10 ml IV PRN PRN PRN Reason: LINE FLUSH Last Admin: 04/27/19 02:28 Dose: 10 ml Documented by: Review of Systems All systems: negative Constitutional: chronic pain Exam - Constitutional Vitals: Temp Pulse Resp BP Pulse Ox 97.8 F 80 9 L 96/51 97 04/27/19 08:00 04/27/19 10:00 04/27/19 06:00 04/27/19 06:00 04/27/19 06:00 General appearance: Present: mild distress (secondary to pain), disheveled, other (pale) - EENT Eyes: Present: PERRL, EOM intact ENT: hearing intact - Neck Neck: Present: supple, normal ROM - Respiratory Respiratory effort: normal Respiratory: bilateral: CTA - Cardiovascular Rhythm: regular (sinus tach) Heart Sounds: Present: S1 & S2 - Extremities Extremities: abnormal (multiple tattoos) - Abdominal General gastrointestinal: Present: other (post surgical changes with dressing intact, just changed this am) - Rectal Rectal Exam: deferred - Integumentary Integumentary: Present: pale - Musculoskeletal Musculoskeletal: strength equal bilaterally - Psychiatric Psychiatric: appropriate mood/affect Results - Labs CBC & Chem 7: 04/27/19 05:20 04/27/19 05:20 Labs: Abnormal lab results 04/26/19 04/27/19 04/27/19 Range/Units 16:46 05:20 05:20 WBC 12.0 H (4.5-11.0) K/mm3 RBC 2.89 L (3.65-5.03) M/mm3 Hgb 7.2 L (11.8-15.2) gm/dl Hct 22.7 L (35.5-45.6) % MCV 79 L (84-94) fl MCH 25 L (28-32) pg RDW 18.1 H (13.2-15.2) % Lymph % (Auto) 3.8 L (13.4-35.0) % [place] % (Auto) 10.9 H (0.0-7.3) % Lymph # 0.5 L (1.2-5.4) K/mm3 [place] # 1.3 H (0.0-0.8) K/mm3 Seg Neutrophils % 85.0 H (40.0-70.0) % Seg Neutrophils # 10.2 H (1.8-7.7) K/mm3 Potassium 3.1 L (3.6-5.0) mmol/L Chloride 108.3 H (98-107) mmol/L Carbon Dioxide 18 L (22-30) mmol/L BUN 7 L (9-20) mg/dL Creatinine 0.7 L (0.8-1.5) mg/dL POC Glucose 114 H (70-105) Calcium 7.3 L (8.4-10.2) mg/dL Magnesium 1.10 L (1.7-2.3) mg/dL Assessment and Plan 49 y/o male with septic shock, secondary to abdominal wall abscess s/p I&D with anemia and continued hypotension. 1. Discussed with patient at bedside. Ok with blood transfusion. Given underlying malignancy, anemia and current hypotension, would likely tolerate blood better than just IV fluids. Will give 2 units. 2. Follow up cultures and continue broad spec abx therapy. Can taper based on culture results. 3. There is concern for fistual between the colon and bladder so urine will always be dirty. 4. Wean pressors form MAPs> 60 CCT 31 minutes.
--- NOTE | 2019-04-27 12:58 | Progress Note ---
Assessment and Plan - Patient Problems (1) Abdominal wall abscess at site of surgical wound Current Visit: Yes Status: Acute Plan to address problem: Pt stable. s/p I&D of abdominal wall abscess - 04/26/19 - POD#1. Patient looks much better today. He reports that dressing has been changed multiple times. That is concerning for a possible fistula. We'll have to observe and see if this continues. We'll ask wound care to see him tomorrow. For now, we'll change the dressing 3 times a day to try and control the drainage. His call with questions Time=30min Subjective Date of service: 04/27/19 Patient Reports: Positive: feels better, pain is less Objective Vital Signs - 12hr 04/27/19 04/27/19 04/27/19 01:00 01:10 01:20 Temperature Pulse Rate 75 102 H 75 Respiratory 12 16 11 L Rate Blood Pressure 103/60 108/67 110/67 O2 Sat by Pulse Oximetry 04/27/19 04/27/19 04/27/19 01:30 01:40 01:50 Temperature Pulse Rate 75 73 111 H Respiratory 16 11 L 23 Rate Blood Pressure 108/63 108/63 104/62 O2 Sat by Pulse Oximetry 04/27/19 04/27/19 04/27/19 02:00 02:10 02:20 Temperature Pulse Rate 92 H 93 H 93 H Respiratory 12 12 13 Rate Blood Pressure 104/62 104/62 89/53 O2 Sat by Pulse 100 Oximetry 04/27/19 04/27/19 04/27/19 02:25 02:30 02:35 Temperature Pulse Rate 89 75 Respiratory 14 12 18 Rate Blood Pressure 85/53 O2 Sat by Pulse 99 100 Oximetry 04/27/19 04/27/19 04/27/19 02:40 02:50 02:55 Temperature Pulse Rate 75 83 Respiratory 12 11 L 16 Rate Blood Pressure 85/53 119/69 O2 Sat by Pulse 97 99 Oximetry 04/27/19 04/27/19 04/27/19 03:00 03:10 03:20 Temperature Pulse Rate 109 H 92 H 89 Respiratory 18 14 13 Rate Blood Pressure 119/69 119/69 122/70 O2 Sat by Pulse 98 100 100 Oximetry 04/27/19 04/27/19 04/27/19 03:30 03:40 03:50 Temperature Pulse Rate 91 H 116 H Respiratory 13 Rate Blood Pressure 119/70 119/70 126/72 O2 Sat by Pulse 100 100 99 Oximetry 04/27/19 04/27/19 04/27/19 04:00 04:10 04:20 Temperature 98.4 F Pulse Rate 105 H 104 H 105 H Respiratory Rate Blood Pressure 98/50 98/50 126/72 O2 Sat by Pulse 99 100 100 Oximetry 04/27/19 04/27/19 04/27/19 04:30 04:38 04:40 Temperature Pulse Rate 90 98 H Respiratory 13 16 12 Rate Blood Pressure 112/66 112/66 O2 Sat by Pulse 100 99 Oximetry 04/27/19 04/27/19 04/27/19 04:50 05:00 05:08 Temperature Pulse Rate 88 91 H Respiratory 14 13 14 Rate Blood Pressure 112/68 115/68 O2 Sat by Pulse 100 99 Oximetry 04/27/19 04/27/19 04/27/19 05:10 05:20 05:30 Temperature Pulse Rate 91 H 90 113 H Respiratory 13 11 L 16 Rate Blood Pressure 115/68 112/68 112/68 O2 Sat by Pulse 99 99 Oximetry 04/27/19 04/27/19 04/27/19 05:40 05:45 05:50 Temperature Pulse Rate 89 75 91 H Respiratory 12 18 13 Rate Blood Pressure 107/71 103/55 O2 Sat by Pulse 98 100 95 Oximetry 04/27/19 04/27/19 04/27/19 06:00 08:00 10:00 Temperature 97.8 F Pulse Rate 84 80 Respiratory 9 L Rate Blood Pressure 96/51 O2 Sat by Pulse 97 Oximetry - General physical appearance no distress, no pain, other (looks much better) - Respiratory normal expansion, normal respiratory effort - Psychiatric oriented to time, oriented to person, oriented to place, speech is normal, memory intact - Labs 04/27/19 05:20 04/27/19 05:20 Diabetes panel 04/27/19 Range/Units 05:20 Sodium 139 (137-145) mmol/L Potassium 3.1 L (3.6-5.0) mmol/L Chloride 108.3 H (98-107) mmol/L Carbon Dioxide 18 L (22-30) mmol/L BUN 7 L (9-20) mg/dL Creatinine 0.7 L (0.8-1.5) mg/dL Glucose 83 (75-100) mg/dL Calcium 7.3 L (8.4-10.2) mg/dL Calcium panel 04/27/19 Range/Units 05:20 Calcium 7.3 L (8.4-10.2) mg/dL Pituitary panel 04/27/19 Range/Units 05:20 Sodium 139 (137-145) mmol/L Potassium 3.1 L (3.6-5.0) mmol/L Chloride 108.3 H (98-107) mmol/L Carbon Dioxide 18 L (22-30) mmol/L BUN 7 L (9-20) mg/dL Creatinine 0.7 L (0.8-1.5) mg/dL Glucose 83 (75-100) mg/dL Calcium 7.3 L (8.4-10.2) mg/dL Adrenal panel 04/27/19 Range/Units 05:20 Sodium 139 (137-145) mmol/L Potassium 3.1 L (3.6-5.0) mmol/L Chloride 108.3 H (98-107) mmol/L Carbon Dioxide 18 L (22-30) mmol/L BUN 7 L (9-20) mg/dL Creatinine 0.7 L (0.8-1.5) mg/dL Glucose 83 (75-100) mg/dL Calcium 7.3 L (8.4-10.2) mg/dL
[2019-04-27] MEDS ORDERED: MAGNESIUM SULFATE 4GM/100ML 4 GM/100 ML BAG IV ONE (13:47)
--- NOTE | 2019-04-27 13:52 | Progress Note ---
Assessment and Plan Assessment and plan: Patient is a 49-year-old male with recent history of stage IV adenocarcinoma of the colon who presented to the ED on account of 5 days history of lower abdominal swelling. He has associated pain, abdominal wall redness, nausea with vomiting, diarrhea, fever with chills and lightheadedness. He denies chest pain, shortness of breath, palpitation, leg swelling, orthopnea, PND, headaches, syncope or loss of consciousness. Per patient, he has been on hospice care for 3 weeks with DO NOT INTUBATE/DO NOT RESUSCITATE status. However, he now wants to be full code since he is not at the point of dying currently. Past History Past Medical History: other (Crohn's disease, stage IV adenocarcinoma of the colon ) Septic shock -Probably secondary to abdominal abscess and UTI cont abx, cont pressors, fup cx, ID consult -Surgery consulted appreciated, sp I and D, fistula suspected Anemia of chronic disease -H&H stable, will monitor levels Stage IV adenocarcinoma of colon -On hospice care Moderate protein calorie malnutrition -We'll consult dietitian DVT prophylaxis with heparin Critical care time 40 minutes History Interval history: Review of systems Constitutional: No fevers, no malaise, no joint pains CVS: No chest pain, no orthopnea, no dyspnea on exertion, no pedal edema GI: No abdominal pain, no diarrhea, no vomiting, no constipation Respiratory: no wheezing, no coughing Hospitalist Physical - Physical exam Narrative exam: General appearance: Present: no acute distress - EENT Eyes: Present: PERRL, EOM intact ENT: hearing intact, clear oral mucosa - Neck Neck: Present: supple, normal ROM - Respiratory Respiratory effort: normal Respiratory: bilateral: CTA - Cardiovascular Rhythm: regular Heart Sounds: Present: S1 & S2. Absent: rub, click - Extremities Extremities: pulses symmetrical, No edema Peripheral Pulses: within normal limits - Abdominal General gastrointestinal: Present: tender (lower abdomen), distended, normal bowel sounds, other (firm on palpation on the lower abdomen) Male genitourinary: Present: deferred - Integumentary Integumentary: Present: dry, erythema (lower abdomen) - Musculoskeletal Musculoskeletal: gait normal, strength equal bilaterally - Psychiatric Psychiatric: appropriate mood/affect, intact judgment & insight - Neurologic Neurologic: CNII-XII intact, moves all extremities - Constitutional Vitals: Temp Pulse Resp BP Pulse Ox 98.3 F 80 9 L 96/51 97 04/27/19 12:00 04/27/19 10:00 04/27/19 06:00 04/27/19 06:00 04/27/19 06:00 General appearance: Present: mild distress (secondary to pain), disheveled, other (pale) Results - Labs CBC & Chem 7: 04/28/19 03:49 04/28/19 09:00 Labs: Laboratory Last Values WBC 12.0 K/mm3 (4.5-11.0) H 04/27/19 05:20 RBC 2.89 M/mm3 (3.65-5.03) L 04/27/19 05:20 Hgb 7.2 gm/dl (11.8-15.2) L 04/27/19 05:20 Hct 22.7 % (35.5-45.6) L 04/27/19 05:20 MCV 79 fl (84-94) L 04/27/19 05:20 MCH 25 pg (28-32) L 04/27/19 05:20 MCHC 32 % (32-34) 04/27/19 05:20 RDW 18.1 % (13.2-15.2) H 04/27/19 05:20 Plt Count 247 K/mm3 (140-440) 04/27/19 05:20 Lymph % (Auto) 3.8 % (13.4-35.0) L 04/27/19 05:20 [place] % (Auto) 10.9 % (0.0-7.3) H 04/27/19 05:20 Eos % (Auto) 0.1 % (0.0-4.3) 04/27/19 05:20 Baso % (Auto) 0.2 % (0.0-1.8) 04/27/19 05:20 Lymph # 0.5 K/mm3 (1.2-5.4) L 04/27/19 05:20 [place] # 1.3 K/mm3 (0.0-0.8) H 04/27/19 05:20 Eos # 0.0 K/mm3 (0.0-0.4) 04/27/19 05:20 Baso # 0.0 K/mm3 (0.0-0.1) 04/27/19 05:20 Seg Neutrophils % 85.0 % (40.0-70.0) H 04/27/19 05:20 Seg Neutrophils # 10.2 K/mm3 (1.8-7.7) H 04/27/19 05:20 APTT 38.0 Sec. (24.2-36.6) H 04/25/19 23:28 Sodium 139 mmol/L (137-145) 04/27/19 05:20 Potassium 3.1 mmol/L (3.6-5.0) L 04/27/19 05:20 Chloride 108.3 mmol/L (98-107) H 04/27/19 05:20 Carbon Dioxide 18 mmol/L (22-30) L 04/27/19 05:20 16 mmol/L 04/27/19 05:20 BUN 7 mg/dL (9-20) L 04/27/19 05:20 0.7 mg/dL (0.8-1.5) L 04/27/19 05:20 Estimated GFR > 60 ml/min 04/27/19 05:20 10 % 04/27/19 05:20 Glucose 83 mg/dL (75-100) 04/27/19 05:20 POC Glucose 114 (70-105) H 04/26/19 16:46 Lactic Acid 0.80 mmol/L (0.7-2.0) 04/26/19 06:03 Calcium 7.3 mg/dL (8.4-10.2) L 04/27/19 05:20 Magnesium 1.10 mg/dL (1.7-2.3) L 04/27/19 05:20 0.20 mg/dL (0.1-1.2) 04/25/19 23:28 AST 7 units/L (5-40) 04/25/19 23:28 ALT < 5 units/L (7-56) L 04/25/19 23:28 92 units/L (35-129) 04/25/19 23:28 5.4 g/dL (6.3-8.2) L 04/25/19 23:28 2.5 g/dL (3.9-5) L 04/25/19 23:28 0.9 % 04/25/19 23:28 22 units/L (13-60) 04/25/19 23:28 Yellow (Yellow) 04/25/19 22:20 Turbid (Clear) 04/25/19 22:20 5.0 (5.0-7.0) 04/25/19 22:20 Ur Specific [place] 1.027 (1.003-1.030) 04/25/19 22:20 100 mg/dl mg/dL (Negative) 04/25/19 22:20 Neg mg/dL (Negative) 04/25/19 22:20 Tr mg/dL (Negative) 04/25/19 22:20 Sm (Negative) 04/25/19 22:20 Neg (Negative) 04/25/19 22:20 Mod (Negative) 04/25/19 22:20 Positive (Negative) 04/25/19 22:20 < 2.0 mg/dL (<2.0) 04/25/19 22:20 Ur Leukocyte Esterase Sm (Negative) 04/25/19 22:20 > 182.0 /HPF (0.0-6.0) H 04/25/19 22:20 115.0 /HPF (0.0-6.0) 04/25/19 22:20 4+ /HPF (Negative) 04/25/19 22:20 3+ /HPF 04/25/19 22:20 1+ /HPF 04/25/19 22:20 Active Medications - Current Medications Current Medications: Generic Name Dose Route Start Last Admin Trade Name Freq PRN Reason Stop Dose Admin Acetaminophen 650 mg 04/26/19 03:24 04/26/19 11:05 Tylenol PO 650 mg Q4H PRN Administration Pain MILD(1-3)/Fever >100.5/SHOOK Heparin Sodium (Porcine) 5,000 unit 04/26/19 06:00 04/27/19 05:07 Heparin SUB-Q 5,000 unit Q8HR KELLY Administration Hydromorphone HCl 1 mg 04/26/19 03:46 04/27/19 12:16 Dilaudid IV 1 mg Q3H PRN Administration Pain , Severe (7-10) Hydromorphone HCl 0.5 mg 04/27/19 10:22 Dilaudid IV DAILY PRN Wound Care Norepinephrine 4 mg in 250 mls @ 7.5 mls/hr 04/26/19 04:00 04/27/19 02:42 Levophed Drip 4 Mg/Ns 250 Ml IV 7 mcg/min TITR KELLY 26.25 mls/hr Titration Protocol 2 MCG/MIN Piperacillin Sod/Tazobactam Sod 4.5 gm in 100 mls @ 200 mls/hr 04/26/19 06:00 04/27/19 05:08 Zosyn/Ns 4.5gm/100ml IV 200 mls/hr Q8HR KELLY Administration Protocol Potassium Chloride 40 meq/ 520 mls @ 125 mls/hr 04/27/19 14:00 Sodium Chloride IV 04/27/19 18:10 DIRECT KELLY Magnesium Sulfate 4 gm in 100 mls @ 25 mls/hr 04/27/19 13:47 Magnesium Sulfate 4gm/100ml IV 04/27/19 17:46 ONCE ONE Midazolam HCl 3 mg 04/27/19 10:22 Versed IV DAILY PRN Wound Care Morphine Sulfate 2 mg 04/26/19 03:24 04/27/19 10:07 Morphine IV 2 mg Q4H PRN Administration Pain, Moderate (4-6) Ondansetron HCl 4 mg 04/26/19 03:24 Zofran IV Q8H PRN Nausea And Vomiting Sodium Chloride 10 ml 04/26/19 10:00 04/26/19 21:30 Sodium Chloride Flush Syringe 10 Ml IV 10 ml BID KELLY Administration Sodium Chloride 10 ml 04/26/19 03:24 04/27/19 02:28 Sodium Chloride Flush Syringe 10 Ml IV 10 ml PRN PRN Administration LINE FLUSH Nutrition/Malnutrition Assess - Dietary Evaluation Nutrition/Malnutrition Findings: Nutrition Notes Start: 04/26/19 13:02 Freq: Status: Active Protocol: Document 04/26/19 13:02 LP (Rec: 04/26/19 13:06 LP [email or web address]) Nutrition Notes Need for Assessment generated from: MD Order Initial or Follow up Assessment Current Diagnosis Diabetes,Sepsis,Hypertension Other Pertinent Diagnosis Stage 4 colon Ca, abdominal abscess/obstruction Current Diet NPO Labs/Tests Reviewed Pertinent Medications Reviewed Height 5 ft 10 in Weight 72.575 kg [place] Body Weight (kg) 75.45 BMI 22.9 Subjective/Other Information Consult for malnutrition. Pt in ED. Pt was on hospice and changed mind. Burn Absent Trauma Absent #1 Nutrition Diagnosis Inadequate oral intake Etiology abdominal pain As Evidenced by Signs and Symptoms Pt currently NPO Is patient on ventilator? No Is Patient Ambulatory and/or Out of Bed No REE-([facility]-confined to bed) 1914.324 Calculation Used for Recommendations [facility] Additional Notes Protein needs [id number] (1.2- 1.5g/kg) Fluid needs are 1ml/kcal Nutrition Intervention Change Diet Order: Advance diet as tolerated Goal #1 Advance diet as tolerated Follow-Up By: 04/28/19 Additional Comments Follow for diet advancement
[2019-04-27] MEDS ORDERED: KCL 40 MEQ in NACL 0.45% 500 ML IV SCH (14:00)
[2019-04-27] MEDS: SODIUM CHLORIDE FLUSH SYRINGE 10 ML IV SCH ×2 (14:59→21:28)
[2019-04-27] MEDS ORDERED: NACL 0.9% 500 ML 500 ML ONE (17:29)
[2019-04-27] MEDS: KCL 20MEQ/100ML 20 MEQ/100 ML BAG IV SCH (23:49)
[2019-04-28] MEDS: KCL 20MEQ/100ML 20 MEQ/100 ML BAG IV SCH (00:42)
[2019-04-28] MEDS: MORPHINE IV PRN ×5 (00:42→22:26)
[2019-04-28] MEDS: DILAUDID IV PRN ×4 (02:07→18:12)
[2019-04-28 03:54] LABS: Basophils % (Auto) 0.2 % (0.0-1.8); Eosinophils # (Auto) 0.1 K/mm3 (0.0-0.4); Eosinophils % (Auto) 1.9 % (0.0-4.3); Hematocrit 26.1 % (35.5-45.6); Hemoglobin 8.6 gm/dl (11.8-15.2); Lymphocytes # (Auto) 0.5 K/mm3 (1.2-5.4); Lymphocytes % (Auto) 5.8 % (13.4-35.0); Mean Corpuscular HGB Conc 33 % (32-34); Mean Corpuscular Volume 79 fl (84-94); Monocytes # (Auto) 1.1 K/mm3 (0.0-0.8); Monocytes % (Auto) 13.5 % (0.0-7.3); Platelet Count 214 K/mm3 (140-440); Red Cell Distribution Width 18.5 % (13.2-15.2)
[2019-04-28 04:18] LABS: Albumin 1.8 g/dL (3.9-5); BUN/Creatinine Ratio 6; Blood Urea Nitrogen 4 mg/dL (9-20); Calcium 7.3 mg/dL (8.4-10.2); Hemolysis Index 3
[2019-04-28 04:22] LABS: Alanine Aminotransferase < 5 units/L (7-56)
[2019-04-28] MEDS: ZOSYN/NS 4.5GM/100ML 4.5 GM/100 ML VIAL IV SCH (06:46)
[2019-04-28] MEDS: HEPARIN SUB-Q SCH ×3 (06:47→23:30)
--- NOTE | 2019-04-28 09:09 | Progress Note ---
Assessment and Plan Abdominal abscess Sepsis with hypotension Hypotension on pressors stage IV colon ca on home hospice admitted with abdominal pain,abcess. Anemia Hypokalemis Recommendations K+ replacement Incentive spirometry. Out of bed as tolerated. Continue antibiotics per ID and surgery. Progressive nutritional support per IMS, per surgery Once potassium completed, consider removal of central line and patient can be transferred out. Discussed with patient in detail. All questions answered. Subjective Date of service: 04/28/19 Principal diagnosis: Abdominal abcess,stage IV colon CA,colo-vesical fistula Interval history: No events overnight. No respiratory complaints. Denies any pain. Off pressors this morning, no dizziness Objective Vital Signs - 12hr 04/27/19 04/27/19 04/27/19 21:11 21:21 21:30 Temperature Pulse Rate 78 82 82 Pulse Rate [ From Monitor] Respiratory 13 12 14 Rate Blood Pressure 141/71 130/82 130/77 O2 Sat by Pulse 97 97 97 Oximetry 04/27/19 04/27/19 04/27/19 21:41 21:51 22:00 Temperature Pulse Rate 100 H 79 80 Pulse Rate [ From Monitor] Respiratory 19 16 15 Rate Blood Pressure 135/78 135/78 137/80 O2 Sat by Pulse 97 99 96 Oximetry 04/27/19 04/28/19 04/28/19 22:03 00:00 04:00 Temperature 99 F Pulse Rate 76 Pulse Rate [ 83 80 From Monitor] Respiratory 13 15 16 Rate Blood Pressure 137/80 O2 Sat by Pulse 97 98 98 Oximetry 04/28/19 08:00 Temperature 99.1 F Pulse Rate Pulse Rate [ From Monitor] Respiratory Rate Blood Pressure O2 Sat by Pulse Oximetry Constitutional: no acute distress, alert Eyes: non-icteric ENT: oropharynx moist Effort: no acute distress Ascultation: Bilateral: clear Cardiovascular: regular rate and rhythm Gastrointestinal: normoactive bowel sounds, non-tender, non-distended, other (colostomy bag in place. Passing gas.) Integumentary: normal Extremities: no cyanosis, no cyanosis, no cyanosis Neurologic: normal mental status, non-focal exam Psychiatric: mood appropriate, affect normal CBC and BMP: 04/28/19 03:49 04/28/19 09:00 Abnormal lab findings: Abnormal Labs 04/25/19 04/25/19 04/25/19 22:20 23:28 23:28 WBC RBC 2.94 L Hgb 7.6 L Hct 23.0 L MCV 78 L MCH 26 L RDW 18.0 H Lymph % (Auto) 2.5 L [place] % (Auto) 15.0 H Lymph # 0.3 L [place] # 1.5 H Seg Neutrophils % 82.3 H Seg Neutrophils # 8.3 H APTT 38.0 H Sodium Potassium Chloride Carbon Dioxide BUN Creatinine Glucose POC Glucose Lactic Acid Calcium Phosphorus Magnesium ALT Total Protein Albumin Urine WBC (Auto) > 182.0 H Crossmatch 04/25/19 04/25/19 04/26/19 23:28 23:36 01:17 WBC RBC Hgb Hct MCV MCH RDW Lymph % (Auto) [place] % (Auto) Lymph # [place] # Seg Neutrophils % Seg Neutrophils # APTT Sodium 136 L Potassium Chloride Carbon Dioxide 18 L BUN Creatinine Glucose 106 H POC Glucose Lactic Acid 3.00 H* 3.20 H* Calcium 7.9 L Phosphorus Magnesium ALT < 5 L Total Protein 5.4 L Albumin 2.5 L Urine WBC (Auto) Crossmatch 04/26/19 04/27/19 04/27/19 16:46 05:20 05:20 WBC 12.0 H RBC 2.89 L Hgb 7.2 L Hct 22.7 L MCV 79 L MCH 25 L RDW 18.1 H Lymph % (Auto) 3.8 L [place] % (Auto) 10.9 H Lymph # 0.5 L [place] # 1.3 H Seg Neutrophils % 85.0 H Seg Neutrophils # 10.2 H APTT Sodium Potassium 3.1 L Chloride 108.3 H Carbon Dioxide 18 L BUN 7 L Creatinine 0.7 L Glucose POC Glucose 114 H Lactic Acid Calcium 7.3 L Phosphorus Magnesium 1.10 L ALT Total Protein Albumin Urine WBC (Auto) Crossmatch 04/27/19 04/27/19 04/27/19 13:25 15:20 22:30 WBC RBC Hgb Hct MCV MCH RDW Lymph % (Auto) [place] % (Auto) Lymph # [place] # Seg Neutrophils % Seg Neutrophils # APTT Sodium Potassium 2.8 L* Chloride Carbon Dioxide BUN Creatinine Glucose POC Glucose Lactic Acid Calcium Phosphorus 1.60 L Magnesium ALT Total Protein Albumin Urine WBC (Auto) Crossmatch See Detail 04/28/19 04/28/19 03:49 03:49 WBC RBC 3.30 L Hgb 8.6 L Hct 26.1 L MCV 79 L MCH 26 L RDW 18.5 H Lymph % (Auto) 5.8 L [place] % (Auto) 13.5 H Lymph # 0.5 L [place] # 1.1 H Seg Neutrophils % 78.6 H Seg Neutrophils # APTT Sodium Potassium 3.0 L Chloride 108.5 H Carbon Dioxide 21 L BUN 4 L Creatinine 0.7 L Glucose POC Glucose Lactic Acid Calcium 7.3 L Phosphorus 1.70 L Magnesium ALT < 5 L Total Protein 5.1 L Albumin 1.8 L Urine WBC (Auto) Crossmatch
--- NOTE | 2019-04-28 10:02 | Consultation ---
History of Present Illness - Reason for Consult Consult date: 04/28/19 abdominal wall abscess Requesting physician: BRENT JASON - History of Present Illness 49 y/o male with history of Crohn's disease and metastatic adenocarcinoma of the colon initially found as an appendix mass in January 2018 s/p diverting ileostomy with ileostomy reversed in January of 2019 at [facility] found to have a extensive metastatic cancer and colovesical fistula and recurrent UTIs, placed on chronic bactrim suppression admitted on 04/25/2019 due to 3-day history of lower abdominal pain and abdominal wall erythema and heat associated with subjective fever and anorexia. He reports he was not offer chemo/RT due to advanced cancer. In the ED, temp 99.3-101.6, HR 144, R16, BP 92/59. WBC 10.1. Hg 7.6. Plat 240. Creat 1.4. UA with 182 wbc, small LE. Blood cultures 04/25/2019 no growth. Wound culture 04/26/2019 Gram +GPC. CXR negative. CT shows an abdominal wall abscess 8.3x5.3x10.7. Gen. surgery was consulted and underwent incision and drainage of abdominal wall abscess on 04/26/2019 with an immediate avina of air, foul smell and intestinal-appearing fluid at the base. There was no obvious visible opening into the bowel. Fascia appears to have some gaps. Fluid appears to have a colonic type appearance Review of Systems: General: +subjective fever, no chills, no malaise Cutaneous: no rash, pruritus Head: no headaches or injury Eyes: no changes in vision, eye pain, double vision Ears: no ear pain, ear discharge, ringing or hearing loss Nose: no nose bleeding, stuffiness Mouth & throat: no bleeding gums, no horseness, no dental problems, or swollen glands Neck: no pain, node enlargement/lumps, tyroid enlargement or tenderness Respiratory: no cough, wheezing, sputum, hemoptysis, pleuritic chest pain Cardiovascular: no chest pain, leg edema, cyanosis, THOMASON, orthopnea Musculoskeletal: no edema Gastrointestinal: +nausea, +abdominal pain/erythema, no vomiting, no hematemesis, diarrhea, constipation, melena, bright red blood in stools, fecal incontinence, jaundice Genitourinary/Reproductive: no frequent urination, dysuria, hematuria, i ncontinence Neurogical: no seizures, no headaches, no weakness, no paresthesias, no loss of speech or vision; no memory loss, no vertigo, no tremors, no numbness Psychiatric: stable mood; no excessive anxiety, sadness or moodiness Past History Past Medical History: other (Crohn's disease, stage IV adenocarcinoma of the colon ) Past Surgical History: Other (multiple abdominal surgeries with fistula formation from the colon to the bladder, neck surgery) Social history: other (patient has remote history of cigarette smoking, he quit 15 years ago. She admits to occasional marijuana use but denies alcohol or other illicit drug use) Family history: other (grandfather had from an unknown cancer at unknown age.) Medications and Allergies Allergies Allergy/AdvReac Type Severity Reaction Status Date / Time No Known Allergies Allergy Verified 04/25/19 21:41 Home Medications Medication Instructions Recorded Confirmed Last Taken Type ALPRAZolam [Xanax TAB] 0.5 mg PO HS 04/26/19 04/26/19 Unknown History Ciprofloxacin [Ciprofloxacin ORAL 500 mg PO Q12H 04/26/19 04/26/19 Unknown History LIQ] Morphine [Morphine TAB] 30 mg PO HS 04/26/19 04/26/19 Unknown History Oxycodone HCl/Acetaminophen 1 each PO Q6HR PRN 04/26/19 04/26/19 Unknown History [Percocet 10/325 mg] Promethazine [Phenergan] 25 mg PO TID PRN 04/26/19 04/26/19 Unknown History Sulfamethoxazole/Trimethoprim 1 each PO DAILY 04/26/19 04/26/19 Unknown History [Bactrim DS TAB] Active Meds: Active Medications Acetaminophen (Tylenol) 650 mg PO Q4H PRN PRN Reason: Pain MILD(1-3)/Fever >100.5/SHOOK Last Admin: 04/26/19 11:05 Dose: 650 mg Documented by: Heparin Sodium (Porcine) (Heparin) 5,000 unit SUB-Q Q8HR KELLY Last Admin: 04/28/19 06:47 Dose: 5,000 unit Documented by: Hydromorphone HCl (Dilaudid) 1 mg IV Q3H PRN PRN Reason: Pain , Severe (7-10) Last Admin: 04/28/19 08:57 Dose: 1 mg Documented by: Hydromorphone HCl (Dilaudid) 0.5 mg IV DAILY PRN PRN Reason: Wound Care Norepinephrine (Levophed Drip 4 Mg/Ns 250 Ml) 4 mg in 250 mls @ 7.5 mls/hr IV TITR [facility]; Protocol Last Titration: 04/27/19 23:12 Dose: 0 mcg/min, 0 mls/hr Documented by: Piperacillin Sod/Tazobactam Sod (Zosyn/Ns 4.5gm/100ml) 4.5 gm in 100 mls @ 200 mls/hr IV Q8HR [facility]; Protocol Last Admin: 04/28/19 06:46 Dose: 200 mls/hr Documented by: Midazolam HCl (Versed) 3 mg IV DAILY PRN PRN Reason: Wound Care Morphine Sulfate (Morphine) 2 mg IV Q4H PRN PRN Reason: Pain, Moderate (4-6) Last Admin: 04/28/19 06:46 Dose: 2 mg Documented by: Ondansetron HCl (Zofran) 4 mg IV Q8H PRN PRN Reason: Nausea And Vomiting Sodium Chloride (Sodium Chloride Flush Syringe 10 Ml) 10 ml IV BID KELLY Last Admin: 04/27/19 21:28 Dose: 10 ml Documented by: Sodium Chloride (Sodium Chloride Flush Syringe 10 Ml) 10 ml IV PRN PRN PRN Reason: LINE FLUSH Last Admin: 04/27/19 02:28 Dose: 10 ml Documented by: Physical Examination - Physical Exam Narrative exam: General appearance: Alert in NAD Eyes: anicteric sclerae, moist conjunctivae; no lid-lag; PERRLA HENT: Atraumatic; oropharynx clear with moist mucous membranes and no mucosal ulcerations/no oral thrush; normal hard and soft palate. Normal external ears. Neck: Trachea midline; supple, no thyromegaly or lymphadenopathy Lungs: CTA CV: RRR no murmur Abdomen: Soft,midline with surgical wound + abdominal wall erythema Extremities: no edema, cyanosis Skin: +tattoos, no rash, ulcers or subcutaneous nodules Psych: Appropriate affect, alert and oriented to person, place and time. Neuro: alert and oriented x 3. Moving all extermities - Constitutional Vitals: Vital Signs Temp Pulse Resp BP Pulse Ox 99.1 F 80 16 137/80 98 04/28/19 08:00 04/28/19 04:00 04/28/19 04:00 04/27/19 22:03 04/28/19 04:00 Temperature -Last 24 Hours Temperature 99.1 F Temperature 99 F Temperature 99.4 F Temperature 99.5 F Temperature 99.5 F Temperature 98.6 F Temperature 98.0 F Temperature 98.3 F Results - Labs CBC & Chem 7: 04/28/19 03:49 04/28/19 09:00 Labs: Abnormal lab results 04/27/19 04/27/19 04/27/19 Range/Units 13:25 15:20 22:30 RBC (3.65-5.03) M/mm3 Hgb (11.8-15.2) gm/dl Hct (35.5-45.6) % MCV (84-94) fl MCH (28-32) pg RDW (13.2-15.2) % Lymph % (Auto) (13.4-35.0) % Blanco % (Auto) (0.0-7.3) % Lymph # (1.2-5.4) K/mm3 Blanco # (0.0-0.8) K/mm3 Seg Neutrophils % (40.0-70.0) % Potassium 2.8 L* (3.6-5.0) mmol/L Chloride (98-107) mmol/L Carbon Dioxide (22-30) mmol/L BUN (9-20) mg/dL Creatinine (0.8-1.5) mg/dL Calcium (8.4-10.2) mg/dL Phosphorus 1.60 L (2.5-4.5) mg/dL ALT (7-56) units/L Total Protein (6.3-8.2) g/dL Albumin (3.9-5) g/dL Crossmatch See Detail 04/28/19 04/28/19 04/28/19 Range/Units 03:49 03:49 09:00 RBC 3.30 L (3.65-5.03) M/mm3 Hgb 8.6 L (11.8-15.2) gm/dl Hct 26.1 L (35.5-45.6) % MCV 79 L (84-94) fl MCH 26 L (28-32) pg RDW 18.5 H (13.2-15.2) % Lymph % (Auto) 5.8 L (13.4-35.0) % Blanco % (Auto) 13.5 H (0.0-7.3) % Lymph # 0.5 L (1.2-5.4) K/mm3 Blanco # 1.1 H (0.0-0.8) K/mm3 Seg Neutrophils % 78.6 H (40.0-70.0) % Potassium 3.0 L 2.8 L* (3.6-5.0) mmol/L Chloride 108.5 H (98-107) mmol/L Carbon Dioxide 21 L (22-30) mmol/L BUN 4 L (9-20) mg/dL Creatinine 0.7 L (0.8-1.5) mg/dL Calcium 7.3 L (8.4-10.2) mg/dL Phosphorus 1.70 L (2.5-4.5) mg/dL ALT < 5 L (7-56) units/L Total Protein 5.1 L (6.3-8.2) g/dL Albumin 1.8 L (3.9-5) g/dL Crossmatch Assessment and Plan Cultures: Blood cultures 04/25/2019 no growth. Wound culture 04/26/2019 Gram +GPC. Assessment: 49 y/o male with history of Crohn's disease and metastatic adenocarcinoma of the colon initially found as an appendix mass in January 2018 s/p diverting ileostomy with ileostomy reversed in January of 2019 at [facility] found to have a extensive metastatic cancer and colovesical fistula and recurrent UTIs, placed on chronic bactrim suppression admitted on 04/25/2019 due to 3-day history of lower abdominal pain and abdominal wall erythema and heat associated with subjective fever and anorexia: 1) Sepsis: Present on admission, manifested by fever, tachycardia, hypotension, increased lactate. 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 CT shows an abdominal wall abscess 8.3x5.3x10.7. S/P incision and drainage of abdominal wall abscess on 04/26/2019 with an immediate avina of air, foul smell and intestinal-appearing fluid at the base. There was no obvious visible opening into the bowel. Fascia appears to have some gaps. Fluid appears to have a colonic type appearance. 3) UTI (recurrent) with known colovesical fistula: patient on chronic bactrim. reports urination with feces daily. UA with 182 wbc, small LE. Recommendations: - follow-up blood cultures, urine culture and wound cultures - stop zosyn - start cefepime, flagyl as palliative antibiotics, probably 5 days duration Grim prognosis Will follow. Jenniffer Lujan MD Infectious Diseases Office Services Clerk [facility] ([facility] M [phone] O [phone]
[2019-04-28] MEDS ORDERED: KPHOS 40 MMOL in NACL 0.9% 500 ML 500 ML IV ONE (10:30)
[2019-04-28] MEDS ORDERED: MAGNESIUM SULFATE 3 GM in NACL 0.9% 100 ML IV ONE (11:00)
[2019-04-28] MEDS: FLAGYL 500 MG/100 ML 500 MG/100 ML BAG IV SCH ×2 (13:55→22:26)
[2019-04-28] MEDS: MAXIPIME/NS 2 GM/100 ML 2 GM/100 ML BAG IV SCH ×2 (13:56→23:30)
--- NOTE | 2019-04-28 14:59 | Progress Note ---
Assessment and Plan Assessment and plan: Patient is a 49-year-old male with recent history of stage IV adenocarcinoma of the colon who presented to the ED on account of 5 days history of lower abdominal swelling. He has associated pain, abdominal wall redness, nausea with vomiting, diarrhea, fever with chills and lightheadedness. He denies chest pain, shortness of breath, palpitation, leg swelling, orthopnea, PND, headaches, syncope or loss of consciousness. Per patient, he has been on hospice care for 3 weeks with DO NOT INTUBATE/DO NOT RESUSCITATE status. However, he now wants to be full code since he is not at the point of dying currently. Past History Past Medical History: other (Crohn's disease, stage IV adenocarcinoma of the colon ) Septic shock - secondary to abdominal abscess and UTI cont abx, weaned off pressors 04/28, fup cx, ID consult -Surgery consulted appreciated, sp I and D, enterocutaneous fistula suspected Electrolyte derangement; hypokalemia, hypomagnesemia, hypophosphatemia -Patient admits to poor by mouth intake when he was at home due to abdominal pain -Potassium, magnesium and phosphate have been replaced Anemia of chronic disease -H&H stable, will monitor levels Stage IV adenocarcinoma of colon -On hospice care Moderate protein calorie malnutrition -We'll consult dietitian DVT prophylaxis with heparin Critical care time 40 minutes History Interval history: Review of systems Constitutional: No fevers, no malaise, no joint pains CVS: No chest pain, no orthopnea, no dyspnea on exertion, no pedal edema GI: No abdominal pain, no diarrhea, no vomiting, no constipation Respiratory: no wheezing, no coughing Hospitalist Physical - Physical exam Narrative exam: General appearance: Present: no acute distress - EENT Eyes: Present: PERRL, EOM intact ENT: hearing intact, clear oral mucosa - Neck Neck: Present: supple, normal ROM - Respiratory Respiratory effort: normal Respiratory: bilateral: CTA - Cardiovascular Rhythm: regular Heart Sounds: Present: S1 & S2. Absent: rub, click - Extremities Extremities: pulses symmetrical, No edema Peripheral Pulses: within normal limits - Abdominal General gastrointestinal: Present: tender (lower abdomen), distended, normal bowel sounds, other (firm on palpation on the lower abdomen) Male genitourinary: Present: deferred - Integumentary Integumentary: Present: dry, erythema (lower abdomen) - Musculoskeletal Musculoskeletal: gait normal, strength equal bilaterally - Psychiatric Psychiatric: appropriate mood/affect, intact judgment & insight - Neurologic Neurologic: CNII-XII intact, moves all extremities - Constitutional Vitals: Temp Pulse Resp BP Pulse Ox 98.1 F 82 16 137/80 99 04/28/19 11:59 04/28/19 12:00 04/28/19 12:00 04/27/19 22:03 04/28/19 12:00 General appearance: Present: mild distress (secondary to pain), disheveled, other (pale) Results - Labs CBC & Chem 7: 04/28/19 03:49 04/28/19 09:00 Labs: Laboratory Last Values WBC 7.8 K/mm3 (4.5-11.0) 04/28/19 03:49 RBC 3.30 M/mm3 (3.65-5.03) L 04/28/19 03:49 Hgb 8.6 gm/dl (11.8-15.2) L 04/28/19 03:49 Hct 26.1 % (35.5-45.6) L 04/28/19 03:49 MCV 79 fl (84-94) L 04/28/19 03:49 MCH 26 pg (28-32) L 04/28/19 03:49 MCHC 33 % (32-34) 04/28/19 03:49 RDW 18.5 % (13.2-15.2) H 04/28/19 03:49 Plt Count 214 K/mm3 (140-440) 04/28/19 03:49 Lymph % (Auto) 5.8 % (13.4-35.0) L 04/28/19 03:49 Evangeline % (Auto) 13.5 % (0.0-7.3) H 04/28/19 03:49 Eos % (Auto) 1.9 % (0.0-4.3) 04/28/19 03:49 Baso % (Auto) 0.2 % (0.0-1.8) 04/28/19 03:49 Lymph # 0.5 K/mm3 (1.2-5.4) L 04/28/19 03:49 Evangeline # 1.1 K/mm3 (0.0-0.8) H 04/28/19 03:49 Eos # 0.1 K/mm3 (0.0-0.4) 04/28/19 03:49 Baso # 0.0 K/mm3 (0.0-0.1) 04/28/19 03:49 Seg Neutrophils % 78.6 % (40.0-70.0) H 04/28/19 03:49 Seg Neutrophils # 6.2 K/mm3 (1.8-7.7) 04/28/19 03:49 APTT 38.0 Sec. (24.2-36.6) H 04/25/19 23:28 Sodium 139 mmol/L (137-145) 04/28/19 03:49 Potassium 2.8 mmol/L (3.6-5.0) L* 04/28/19 09:00 Chloride 108.5 mmol/L (98-107) H 04/28/19 03:49 Carbon Dioxide 21 mmol/L (22-30) L 04/28/19 03:49 13 mmol/L 04/28/19 03:49 BUN 4 mg/dL (9-20) L 04/28/19 03:49 0.7 mg/dL (0.8-1.5) L 04/28/19 03:49 Estimated GFR > 60 ml/min 04/28/19 03:49 6 % 04/28/19 03:49 Glucose 78 mg/dL (75-100) 04/28/19 03:49 POC Glucose 114 (70-105) H 04/26/19 16:46 Lactic Acid 0.80 mmol/L (0.7-2.0) 04/26/19 06:03 Calcium 7.3 mg/dL (8.4-10.2) L 04/28/19 03:49 Phosphorus 1.70 mg/dL (2.5-4.5) L 04/28/19 03:49 Magnesium 1.70 mg/dL (1.7-2.3) 04/28/19 03:49 0.30 mg/dL (0.1-1.2) 04/28/19 03:49 AST 6 units/L (5-40) 04/28/19 03:49 ALT < 5 units/L (7-56) L 04/28/19 03:49 95 units/L (35-129) 04/28/19 03:49 5.1 g/dL (6.3-8.2) L 04/28/19 03:49 1.8 g/dL (3.9-5) L 04/28/19 03:49 0.5 % 04/28/19 03:49 22 units/L (13-60) 04/25/19 23:28 Yellow (Yellow) 04/25/19 22:20 Turbid (Clear) 04/25/19 22:20 5.0 (5.0-7.0) 04/25/19 22:20 Ur Specific [place] 1.027 (1.003-1.030) 04/25/19 22:20 100 mg/dl mg/dL (Negative) 04/25/19 22:20 Neg mg/dL (Negative) 04/25/19 22:20 Tr mg/dL (Negative) 04/25/19 22:20 Sm (Negative) 04/25/19 22:20 Neg (Negative) 04/25/19 22:20 Mod (Negative) 04/25/19 22:20 Positive (Negative) 04/25/19 22:20 < 2.0 mg/dL (<2.0) 04/25/19 22:20 Ur Leukocyte Esterase Sm (Negative) 04/25/19 22:20 > 182.0 /HPF (0.0-6.0) H 04/25/19 22:20 115.0 /HPF (0.0-6.0) 04/25/19 22:20 4+ /HPF (Negative) 04/25/19 22:20 3+ /HPF 04/25/19 22:20 1+ /HPF 04/25/19 22:20 Blood Type O POSITIVE 04/27/19 13:25 Antibody Screen Negative 04/27/19 13:25 Crossmatch See Detail 04/27/19 13:25 Active Medications - Current Medications Current Medications: Generic Name Dose Route Start Last Admin Trade Name Freq PRN Reason Stop Dose Admin Acetaminophen 650 mg 04/26/19 03:24 04/26/19 11:05 Tylenol PO 650 mg Q4H PRN Administration Pain MILD(1-3)/Fever >100.5/SHOOK Heparin Sodium (Porcine) 5,000 unit 04/26/19 06:00 04/28/19 13:53 Heparin SUB-Q 5,000 unit Q8HR KELLY Administration Hydromorphone HCl 1 mg 04/26/19 03:46 04/28/19 13:55 Dilaudid IV 1 mg Q3H PRN Administration Pain , Severe (7-10) Hydromorphone HCl 0.5 mg 04/27/19 10:22 Dilaudid IV DAILY PRN Wound Care Norepinephrine 4 mg in 250 mls @ 7.5 mls/hr 04/26/19 04:00 04/27/19 23:12 Levophed Drip 4 Mg/Ns 250 Ml IV 0 mcg/min TITR KELLY 0 mls/hr Titration Protocol 2 MCG/MIN Potassium Phosphate 40 mmol/ 513.3333 mls @ 83 mls/hr 04/28/19 10:30 04/28/19 11:01 Sodium Chloride IV 04/28/19 16:41 83 mls/hr ONCE ONE Administration Potassium Chloride 20 meq in 100 mls @ 100 mls/hr 04/28/19 18:00 Kcl 20meq/100ml IV 04/28/19 19:59 Q1H KELLY Cefepime HCl 2 gm in 100 mls @ 200 mls/hr 04/28/19 12:00 04/28/19 13:56 Maxipime/Ns 2 Gm/100 Ml IV 200 mls/hr Q12HR KELLY Administration Protocol Metronidazole 500 mg in 100 mls @ 100 mls/hr 04/28/19 14:00 04/28/19 13:55 Flagyl 500 Mg/100 Ml IV 100 mls/hr Q8HR KELLY Administration Protocol Midazolam HCl 3 mg 04/27/19 10:22 Versed IV DAILY PRN Wound Care Morphine Sulfate 2 mg 04/26/19 03:24 04/28/19 10:36 Morphine IV 2 mg Q4H PRN Administration Pain, Moderate (4-6) Ondansetron HCl 4 mg 04/26/19 03:24 Zofran IV Q8H PRN Nausea And Vomiting Potassium Chloride 40 meq 04/28/19 15:00 K-Dur PO QDAY KELLY Sodium Chloride 10 ml 04/26/19 10:00 04/27/19 21:28 Sodium Chloride Flush Syringe 10 Ml IV 10 ml BID KELLY Administration Sodium Chloride 10 ml 04/26/19 03:24 04/27/19 02:28 Sodium Chloride Flush Syringe 10 Ml IV 10 ml PRN PRN Administration LINE FLUSH Nutrition/Malnutrition Assess - Dietary Evaluation Nutrition/Malnutrition Findings: Nutrition Notes Start: 04/26/19 13:02 Freq: Status: Active Protocol: Document 04/26/19 13:02 LP (Rec: 04/26/19 13:06 LP [id number]) Nutrition Notes Need for Assessment generated from: MD Order Initial or Follow up Assessment Current Diagnosis Diabetes,Sepsis,Hypertension Other Pertinent Diagnosis Stage 4 colon Ca, abdominal abscess/obstruction Current Diet NPO Labs/Tests Reviewed Pertinent Medications Reviewed Height 5 ft 10 in Weight 72.575 kg Clark Body Weight (kg) 75.45 BMI 22.9 Subjective/Other Information Consult for malnutrition. Pt in ED. Pt was on hospice and changed mind. Burn Absent Trauma Absent #1 Nutrition Diagnosis Inadequate oral intake Etiology abdominal pain As Evidenced by Signs and Symptoms Pt currently NPO Is patient on ventilator? No Is Patient Ambulatory and/or Out of Bed No REE-([facility]-confined to bed) [phone] Calculation Used for Recommendations [facility] Additional Notes Protein needs [id number] (1.2- 1.5g/kg) Fluid needs are 1ml/kcal Nutrition Intervention Change Diet Order: Advance diet as tolerated Goal #1 Advance diet as tolerated Follow-Up By: 04/28/19 Additional Comments Follow for diet advancement
--- NOTE | 2019-04-28 15:51 | Progress Note ---
Assessment and Plan - Patient Problems (1) Abdominal wall abscess at site of surgical wound Current Visit: Yes Status: Acute Plan to address problem: Pt stable. s/p I&D of abdominal wall abscess - 04/26/19 - POD#2. Patient looks better today. The staff was unable to keep up with the drainage, therefore an ostomy bag was placed over the wound. This is most likely an enterocutaneous fistula until proven otherwise. I have asked wound care to see the patient to help with management of the wound and surrounding skin. Consideration should be given for transfer back to Dr. Maynard's team at [place] as this is most likely a complication of their surgery. For now, our goal will be to minimize the fistula output in hopes that it may close spontaneously. He will need TPN and his oral intake should be non-or minimal. I would do clear liquids for now. Please call with questions Time=10min Subjective Date of service: 04/28/19 Patient Reports: Positive: no new complaints, feels better Objective Vital Signs - 12hr 04/28/19 04/28/19 04/28/19 04:00 08:00 10:00 Temperature 99.1 F Pulse Rate 76 Pulse Rate [ 80 76 From Monitor] Respiratory 16 15 Rate O2 Sat by Pulse 98 98 Oximetry 04/28/19 04/28/19 11:59 12:00 Temperature 98.1 F Pulse Rate Pulse Rate [ 82 From Monitor] Respiratory 16 Rate O2 Sat by Pulse 99 Oximetry - General physical appearance no distress, no pain, other (looks better) - Respiratory normal expansion, normal respiratory effort - Abdomen soft, tender (around the abscess site), not distended, other (ostomy bag in place.) - Psychiatric oriented to time, oriented to person, oriented to place, speech is normal, memory intact - Labs 04/28/19 03:49 04/28/19 09:00 Diabetes panel 04/27/19 04/28/19 04/28/19 Range/Units 22:30 03:49 09:00 Sodium 139 (137-145) mmol/L Potassium 2.8 L* 3.0 L 2.8 L* (3.6-5.0) mmol/L Chloride 108.5 H (98-107) mmol/L Carbon Dioxide 21 L (22-30) mmol/L BUN 4 L (9-20) mg/dL Creatinine 0.7 L (0.8-1.5) mg/dL Glucose 78 (75-100) mg/dL Calcium 7.3 L (8.4-10.2) mg/dL AST 6 (5-40) units/L ALT < 5 L (7-56) units/L Alkaline Phosphatase 95 (35-129) units/L Total Protein 5.1 L (6.3-8.2) g/dL Albumin 1.8 L (3.9-5) g/dL Calcium panel 04/27/19 04/28/19 Range/Units 15:20 03:49 Calcium 7.3 L (8.4-10.2) mg/dL Phosphorus 1.60 L 1.70 L (2.5-4.5) mg/dL Albumin 1.8 L (3.9-5) g/dL Pituitary panel 04/27/19 04/28/19 04/28/19 Range/Units 22:30 03:49 09:00 Sodium 139 (137-145) mmol/L Potassium 2.8 L* 3.0 L 2.8 L* (3.6-5.0) mmol/L Chloride 108.5 H (98-107) mmol/L Carbon Dioxide 21 L (22-30) mmol/L BUN 4 L (9-20) mg/dL Creatinine 0.7 L (0.8-1.5) mg/dL Glucose 78 (75-100) mg/dL Calcium 7.3 L (8.4-10.2) mg/dL Adrenal panel 04/27/19 04/28/19 04/28/19 Range/Units 22:30 03:49 09:00 Sodium 139 (137-145) mmol/L Potassium 2.8 L* 3.0 L 2.8 L* (3.6-5.0) mmol/L Chloride 108.5 H (98-107) mmol/L Carbon Dioxide 21 L (22-30) mmol/L BUN 4 L (9-20) mg/dL Creatinine 0.7 L (0.8-1.5) mg/dL Glucose 78 (75-100) mg/dL Calcium 7.3 L (8.4-10.2) mg/dL Total Bilirubin 0.30 (0.1-1.2) mg/dL AST 6 (5-40) units/L ALT < 5 L (7-56) units/L Alkaline Phosphatase 95 (35-129) units/L Total Protein 5.1 L (6.3-8.2) g/dL Albumin 1.8 L (3.9-5) g/dL
[2019-04-28] MEDS: K-DUR PO SCH (15:57)
[2019-04-28] MEDS: SODIUM CHLORIDE FLUSH SYRINGE 10 ML IV SCH (18:29)
[2019-04-28] MEDS: ATIVAN PO SCH (23:49)
[2019-04-29] MEDS ORDERED: K-DUR PO ONE (00:26)
[2019-04-29] MEDS: KCL 20MEQ/100ML 20 MEQ/100 ML BAG IV SCH ×2 (02:40→02:41)
[2019-04-29] MEDS: MORPHINE IV PRN ×4 (02:48→23:42)
[2019-04-29] MEDS: FLAGYL 500 MG/100 ML 500 MG/100 ML BAG IV SCH (05:25)
[2019-04-29] MEDS: DILAUDID IV PRN ×4 (05:25→20:36)
[2019-04-29 08:29] LABS: BUN/Creatinine Ratio 7; Blood Urea Nitrogen 4 mg/dL (9-20); Calcium 7.6 mg/dL (8.4-10.2); Hemolysis Index 40
[2019-04-29] MEDS: K-DUR PO SCH (09:07)
[2019-04-29] MEDS: HEPARIN SUB-Q SCH ×3 (09:09→21:31)
[2019-04-29] MEDS: SODIUM CHLORIDE FLUSH SYRINGE 10 ML IV SCH ×3 (09:14→21:30)
--- NOTE | 2019-04-29 09:33 | Progress Note ---
Assessment and Plan Cultures: Blood cultures 04/25/2019 no growth. Wound culture 04/26/2019 Enterococcus, Lizeth Urine culture 04/25/2019 no growth Assessment: 49 y/o male with history of Crohn's disease and metastatic adenocarcinoma of the colon initially found as an appendix mass in January 2018 s/p diverting ileostomy with ileostomy reversed in January of 2019 at [place] found to have a extensive metastatic cancer and colovesical fistula and recurrent UTIs, placed on chronic bactrim suppression admitted on 04/25/2019 due to 3-day history of lower abdominal pain and abdominal wall erythema and heat associated with subjective fever and anorexia: 1) Sepsis:Resolved. 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 CT shows an abdominal wall abscess 8.3x5.3x10.7. S/P incision and drainage of abdominal wall abscess on 04/26/2019 with an immediate avina of air, foul smell and intestinal-appearing fluid at the base. There was no obvious visible opening into the bowel. Fascia appears to have some gaps. Fluid appears to have a colonic type appearance.Dr. 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 ostomy bag placed over the wound. Agree with transfer back to Dr. Maynard's team at [place]. However patient is refusing aggressive management of enterocutaneous fisturla. Does not want TPN. Currently on hospice. 3) UTI (recurrent) with known colovesical fistula: patient on chronic bactrim. reports urination with feces daily. UA with 182 wbc, small LE. Urine culture no growth. Recommendations: - follow-up blood cultures, urine culture and wound cultures - Discontinue cefepime, flagyl -Start Zosyn 4.5mg IV every 8 hours and Fluconazole 200mg every 24 hours -Agree with transfer to [place], however patient is refusing, [facility] prognosis [facility] M: [phone] O:[phone] Subjective Date of service: 04/29/19 Principal diagnosis: Abdominal abcess,stage IV colon CA,colo-vesical fistula Interval history: Patient seen and examined. Reports generalized body pain . No fevers. Objective - Exam Narrative Exam: General appearance: Awake. Alert. Mild distress reported Eyes: anicteric sclerae, moist conjunctivae; no lid-lag; PERRLA HENT: Atraumatic; oropharynx clear with moist mucous membranes and no mucosal ulcerations/no oral thrush; normal hard and soft palate. Normal external ears. Neck: Trachea midline; supple, no thyromegaly or lymphadenopathy Lungs: CTA CV: RRR no murmur Abdomen: Soft,midline with surgical wound + abdominal wall erythema + ostomy bag over wound. Extremities: no edema, cyanosis Skin: +tattoos, no rash, ulcers or subcutaneous nodules Psych: Appropriate affect, alert and oriented to person, place and time. Neuro: alert and oriented x 3. Moving all extermities - Constitutional Vitals: Vital Signs Temp Pulse Resp BP Pulse Ox 98.5 F 85 18 107/63 95 04/29/19 06:33 04/29/19 06:33 04/29/19 06:33 04/29/19 06:33 04/29/19 06:33 Temperature -Last 24 Hours Temperature 98.5 F Temperature 98.8 F Temperature 98.1 F Temperature 98.2 F Temperature 98.1 F - Labs CBC & Chem 7: 04/28/19 03:49 04/29/19 06:55 Labs: Abnormal lab results 04/28/19 04/28/19 04/28/19 Range/Units 09:00 19:45 23:01 Potassium 2.8 L* 3.5 L D 3.3 L (3.6-5.0) mmol/L Chloride (98-107) mmol/L Carbon Dioxide (22-30) mmol/L BUN (9-20) mg/dL Creatinine (0.8-1.5) mg/dL Calcium (8.4-10.2) mg/dL 04/29/19 Range/Units 06:55 Potassium 3.4 L (3.6-5.0) mmol/L Chloride 108.5 H (98-107) mmol/L Carbon Dioxide 20 L (22-30) mmol/L BUN 4 L (9-20) mg/dL Creatinine 0.6 L (0.8-1.5) mg/dL Calcium 7.6 L (8.4-10.2) mg/dL
[2019-04-29] MEDS: MAXIPIME/NS 2 GM/100 ML 2 GM/100 ML BAG IV SCH (10:00)
--- NOTE | 2019-04-29 10:13 | Progress Note ---
Assessment and Plan Abdominal abscess. Improving * Enterococcus/Lizeth on culture Sepsis with hypotension. Resolved Hypotension on pressors. Resolved stage IV colon ca on home hospice admitted with abdominal pain,abcess. Anemia Hypokalemia. Improved Recommendations Incentive spirometry. Out of bed as tolerated. Diet, fluid replacement per IMS and surgery Pending possible transfer to [place] today for surgical follow-up there. See surgery note Continue antibiotics per ID and surgery. Discussed with patient in detail. All questions answered. Will sign off. Reconsult if needed Subjective Date of service: 04/29/19 Principal diagnosis: Abdominal abcess,stage IV colon CA,colo-vesical fistula Interval history: Pulse ICU transfer arousals: Complaints of some mild to moderate abdominal discomfort for the wound area. No vomiting. No chest complaints. No fever Objective Vital Signs - 12hr 04/28/19 04/29/19 22:43 06:33 Temperature 98.8 F 98.5 F Pulse Rate 84 85 Respiratory 18 18 Rate Blood Pressure 104/64 107/63 O2 Sat by Pulse 95 95 Oximetry Constitutional: no acute distress, alert Eyes: non-icteric ENT: oropharynx moist Effort: no acute distress Ascultation: Bilateral: clear Cardiovascular: regular rate and rhythm Gastrointestinal: normoactive bowel sounds, non-tender, non-distended, other (colostomy bag in place. Mild tenderness) Integumentary: normal Extremities: no cyanosis, no cyanosis, no cyanosis Neurologic: normal mental status, non-focal exam Psychiatric: mood appropriate, affect normal CBC and BMP: 04/28/19 03:49 04/29/19 06:55 Abnormal lab findings: Abnormal Labs 04/25/19 04/25/19 04/25/19 22:20 23:28 23:28 WBC RBC 2.94 L Hgb 7.6 L Hct 23.0 L MCV 78 L MCH 26 L RDW 18.0 H Lymph % (Auto) 2.5 L [place] % (Auto) 15.0 H Lymph # 0.3 L [place] # 1.5 H Seg Neutrophils % 82.3 H Seg Neutrophils # 8.3 H APTT 38.0 H Sodium Potassium Chloride Carbon Dioxide BUN Creatinine Glucose POC Glucose Lactic Acid Calcium Phosphorus Magnesium ALT Total Protein Albumin Urine WBC (Auto) > 182.0 H Crossmatch 04/25/19 04/25/19 04/26/19 23:28 23:36 01:17 WBC RBC Hgb Hct MCV MCH RDW Lymph % (Auto) [place] % (Auto) Lymph # [place] # Seg Neutrophils % Seg Neutrophils # APTT Sodium 136 L Potassium Chloride Carbon Dioxide 18 L BUN Creatinine Glucose 106 H POC Glucose Lactic Acid 3.00 H* 3.20 H* Calcium 7.9 L Phosphorus Magnesium ALT < 5 L Total Protein 5.4 L Albumin 2.5 L Urine WBC (Auto) Crossmatch 04/26/19 04/27/19 04/27/19 16:46 05:20 05:20 WBC 12.0 H RBC 2.89 L Hgb 7.2 L Hct 22.7 L MCV 79 L MCH 25 L RDW 18.1 H Lymph % (Auto) 3.8 L [place] % (Auto) 10.9 H Lymph # 0.5 L [place] # 1.3 H Seg Neutrophils % 85.0 H Seg Neutrophils # 10.2 H APTT Sodium Potassium 3.1 L Chloride 108.3 H Carbon Dioxide 18 L BUN 7 L Creatinine 0.7 L Glucose POC Glucose 114 H Lactic Acid Calcium 7.3 L Phosphorus Magnesium 1.10 L ALT Total Protein Albumin Urine WBC (Auto) Crossmatch 04/27/19 04/27/19 04/27/19 13:25 15:20 22:30 WBC RBC Hgb Hct MCV MCH RDW Lymph % (Auto) [place] % (Auto) Lymph # [place] # Seg Neutrophils % Seg Neutrophils # APTT Sodium Potassium 2.8 L* Chloride Carbon Dioxide BUN Creatinine Glucose POC Glucose Lactic Acid Calcium Phosphorus 1.60 L Magnesium ALT Total Protein Albumin Urine WBC (Auto) Crossmatch See Detail 04/28/19 04/28/19 04/28/19 03:49 03:49 09:00 WBC RBC 3.30 L Hgb 8.6 L Hct 26.1 L MCV 79 L MCH 26 L RDW 18.5 H Lymph % (Auto) 5.8 L [place] % (Auto) 13.5 H Lymph # 0.5 L [place] # 1.1 H Seg Neutrophils % 78.6 H Seg Neutrophils # APTT Sodium Potassium 3.0 L 2.8 L* Chloride 108.5 H Carbon Dioxide 21 L BUN 4 L Creatinine 0.7 L Glucose POC Glucose Lactic Acid Calcium 7.3 L Phosphorus 1.70 L Magnesium ALT < 5 L Total Protein 5.1 L Albumin 1.8 L Urine WBC (Auto) Crossmatch 04/28/19 04/28/19 04/29/19 19:45 23:01 06:55 WBC RBC Hgb Hct MCV MCH RDW Lymph % (Auto) [place] % (Auto) Lymph # [place] # Seg Neutrophils % Seg Neutrophils # APTT Sodium Potassium 3.5 L D 3.3 L 3.4 L Chloride 108.5 H Carbon Dioxide 20 L BUN 4 L Creatinine 0.6 L Glucose POC Glucose Lactic Acid Calcium 7.6 L Phosphorus Magnesium ALT Total Protein Albumin Urine WBC (Auto) Crossmatch
--- NOTE | 2019-04-29 13:28 | Progress Note ---
Assessment and Plan (1) Abdominal wall abscess at site of surgical wound Current Visit: Yes Status: Acute Plan to address problem: Pt stable. s/p I&D of abdominal wall abscess - 04/26/19 - POD#3. Patient is stable. Plan: 1. continue with ostomy appliance to area of drainage - likely enterocutaneous fistula. 2. wound care on board 3. Consideration should be given for transfer back to Dr. Maynard's team at [facility] as this is most likely a complication of their surgery. For now, our goal will be to minimize the fistula output in hopes that it may close spontaneously. 4. He will need TPN and his oral intake should be non-or minimal. I discussed this plan with the patient at length. He states he was on TPN after his surgery at [facility] and does not want to be on TPN again. I explained to him that because this wound is likely caused by a bowel to skin fistula, the goal is to minimize the output so it can have a chance of closing. If he eats, it will c ontinue to put out fluid and will likely not close. I explained to him that surgery is not an option because it would likely cause more damage than good especially with his hx of Crohn's disease and metastatic colon ca. He understands. He states that he can live with the bag and wound management. He wants to go back home with hospice. I discussed this with Dr. Bennett. Will s/o Thank you, please call with questions Subjective Date of service: 04/29/19 Narrative: Pt seen and examined. No acute complaints. States the wound drainage has decreased. No f/c. Tolerating a diet. Objective Vital Signs - 12hr 04/29/19 06:33 Temperature 98.5 F Pulse Rate 85 Respiratory 18 Rate Blood Pressure 107/63 O2 Sat by Pulse 95 Oximetry - General physical appearance Narrative Exam: Gen: AAOx3. NAD CV: S1, S2+ resp; even and unlabored Abd: soft, NT, ND. lower abdominal wound with collection bag in place. Liquid stool like output with sediment in bag. There is induration surrounding the area and minimal erythema. No fluctuance. Ext; no c/c/e - Labs 04/28/19 03:49 04/29/19 06:55 Diabetes panel 04/28/19 04/28/19 04/29/19 Range/Units 19:45 23:01 06:55 Sodium 141 (137-145) mmol/L Potassium 3.5 L D 3.3 L 3.4 L (3.6-5.0) mmol/L Chloride 108.5 H (98-107) mmol/L Carbon Dioxide 20 L (22-30) mmol/L BUN 4 L (9-20) mg/dL Creatinine 0.6 L (0.8-1.5) mg/dL Glucose 90 (75-100) mg/dL Calcium 7.6 L (8.4-10.2) mg/dL Calcium panel 04/28/19 04/29/19 Range/Units 19:45 06:55 Calcium 7.6 L (8.4-10.2) mg/dL Phosphorus 2.60 D 2.50 (2.5-4.5) mg/dL Pituitary panel 04/28/19 04/28/19 04/29/19 Range/Units 19:45 23:01 06:55 Sodium 141 (137-145) mmol/L Potassium 3.5 L D 3.3 L 3.4 L (3.6-5.0) mmol/L Chloride 108.5 H (98-107) mmol/L Carbon Dioxide 20 L (22-30) mmol/L BUN 4 L (9-20) mg/dL Creatinine 0.6 L (0.8-1.5) mg/dL Glucose 90 (75-100) mg/dL Calcium 7.6 L (8.4-10.2) mg/dL Adrenal panel 04/28/19 04/28/19 04/29/19 Range/Units 19:45 23:01 06:55 Sodium 141 (137-145) mmol/L Potassium 3.5 L D 3.3 L 3.4 L (3.6-5.0) mmol/L Chloride 108.5 H (98-107) mmol/L Carbon Dioxide 20 L (22-30) mmol/L BUN 4 L (9-20) mg/dL Creatinine 0.6 L (0.8-1.5) mg/dL Glucose 90 (75-100) mg/dL Calcium 7.6 L (8.4-10.2) mg/dL
--- NOTE | 2019-04-29 14:09 | Progress Note ---
Assessment and Plan Septic shock - secondary to abdominal abscess and UTI - cont abx, weaned off pressors 04/28, fup cx, ID consult -Surgery consulted appreciated, s/p I and D, enterocutaneous fistula suspected - wait for wound cx data Electrolyte derangement; hypokalemia, hypomagnesemia, hypophosphatemia -Patient admits to poor by mouth intake when he was at home due to abdominal pain -Potassium, magnesium and phosphate have been replaced Oral candidiasis, on diflucan Enterocutaneous fistula and vesicocolonic fistula' - supportive care, per patient he was told by [facility] surgeon that no further treatment at this point and recommended hospice Anemia of chronic disease -H&H stable, will monitor levels Stage IV adenocarcinoma of colon -On home hospice care Moderate protein calorie malnutrition -We'll consult dietitian DVT prophylaxis with heparin Disposition: possible d/c with home hospice after wound cx data available Brief History: Patient is a 49-year-old male with recent history of stage IV adenocarcinoma of the colon who presented to the ED on account of 5 days history of lower abdominal swelling. He has associated pain, abdominal wall redness, nausea with vomiting, diarrhea, fever with chills and lightheadedness. He denies chest pain, shortness of breath, palpitation, leg swelling, orthopnea, PND, headaches, syncope or loss of consciousness. Per patient, he has been on hospice care for 3 weeks with DO NOT INTUBATE/DO NOT RESUSCITATE status. However, he revoke hospice and admitted to hospital for increasing abdominal pain. Radiological data: Chest x-ray Abdomen/pelvic CT abdomen x-ray Hospitalist Physical exam: GENERAL: well-developed WM lying on bed appeared to be in no discomfort. HEENT: Normocephalic. Atraumatic. No conjunctival congestion or icterus. Patient has moist mucous membranes but white patches on tongue. NECK: Supple. Trachea midline. CHEST/LUNGS: Clear to auscultated bilaterally, breathing nonlabored. No wheezes crackles or rhonchi. HEART/CARDIOVASCULAR: Regular in rate and rhythm. S1 and S2 positive. ABDOMEN: Abdomen is soft, drainage on place on the anterior abdominal wall. Patient has normal bowel sounds. SKIN: There is no rash. Warm and dry. NEURO: No focal motor deficit. Follows command. MUSCULOSKELETAL: No joint effusion EXTRIMITY: No edema, no cyanosis or clubbing. PSYCH: Cooperative. Subjective Date of service: 04/29/19 Principal diagnosis: Abdominal abcess,stage IV colon CA,colo-vesical fistula Interval history: Patient seen and examined. Medical records and medication list reviewed. No acute event overnight noted by the RN. Patient denies any chest pain or difficulty breathing. Discussed plan of care at bedside with patient. c/o of whitish tongue rash Objective - Constitutional Vitals: Vital Signs - 12hr 04/29/19 04/29/19 04/29/19 06:33 12:46 12:47 Temperature 98.5 F 98.8 F 98.8 F Pulse Rate 85 92 H Respiratory 18 16 16 Rate Blood Pressure 107/63 112/70 O2 Sat by Pulse 95 98 Oximetry - Labs CBC & Chem 7: 04/28/19 03:49 04/30/19 06:10 Labs: Abnormal lab results 04/28/19 04/28/19 04/29/19 Range/Units 19:45 23:01 06:55 Potassium 3.5 L D 3.3 L 3.4 L (3.6-5.0) mmol/L Chloride 108.5 H (98-107) mmol/L Carbon Dioxide 20 L (22-30) mmol/L BUN 4 L (9-20) mg/dL Creatinine 0.6 L (0.8-1.5) mg/dL Calcium 7.6 L (8.4-10.2) mg/dL
[2019-04-29] MEDS: ZOSYN/NS 4.5GM/100ML 4.5 GM/100 ML VIAL IV SCH ×2 (15:00→21:29)
[2019-04-29] MEDS ORDERED: VITAMIN B-12 SUB-Q ONE (16:00)
[2019-04-29] MEDS ORDERED: VITAMIN B-1 100 MG in NACL 0.9% 50 ML IV ONE (16:00)
[2019-04-29] MEDS ORDERED: VITAMIN D2 PO SCH (16:00)
[2019-04-29] MEDS: LIDOCAINE VISCOUS 2% PO PRN (17:34)
[2019-04-29] MEDS: ATIVAN PO SCH (21:30)
[2019-04-30] MEDS: DILAUDID IV PRN ×3 (02:45→13:05)
[2019-04-30] MEDS: ZOSYN/NS 4.5GM/100ML 4.5 GM/100 ML VIAL IV SCH ×2 (05:30→13:07)
[2019-04-30 07:32] LABS: BUN/Creatinine Ratio 8; Blood Urea Nitrogen 5 mg/dL (9-20); Calcium 7.3 mg/dL (8.4-10.2); Hemolysis Index 1
--- NOTE | 2019-04-30 09:52 | Progress Note ---
Assessment and Plan Cultures: Blood cultures 04/25/2019 no growth. Wound culture 04/26/2019 Enterococcus, Lizeth Urine culture 04/25/2019 no growth Assessment: 49 y/o male with history of Crohn's disease and metastatic adenocarcinoma of the colon initially found as an appendix mass in January 2018 s/p diverting ileostomy with ileostomy reversed in January of 2019 at [place] [facility] found to have a extensive metastatic cancer and colovesical fistula and recurrent UTIs, placed on chronic bactrim suppression admitted on 04/25/2019 due to 3-day history of lower abdominal pain and abdominal wall erythema and heat associated with subjective fever and anorexia: 1) Sepsis:Resolved. 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 CT shows an abdominal wall abscess 8.3x5.3x10.7. S/P incision and drainage of abdominal wall abscess on 04/26/2019 with an immediate avina of air, foul smell and intestinal-appearing fluid at the base. There was no obvious visible opening into the bowel. Fascia appears to have some gaps. Fluid appears to have a colonic type appearance.Dr. 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 ostomy bag placed over the wound. Agree with transfer back to Dr. Maynard's team at [place]. However patient is refusing aggressive management of enterocutaneous fisturla. Does not want TPN. Currently on hospice. 3) UTI (recurrent) with known colovesical fistula: patient on chronic bactrim. reports urination with feces daily. UA with 182 wbc, small LE. Urine culture no growth. 4) Oral Lizeth?: will switch to Fluconzole 200 mg PO total 5 days. Continue Magic mouthwash. Recommendations: - follow-up blood cultures, urine culture and wound cultures -Start Zosyn 4.5mg IV every 8 hours and Fluconazole 200mg every 24 hours, D3 of D5. -switch to Fluconazole 200 mg PO total 5 days -Continue Magic mouthwash -Anticipate discharge Fluconazole 200 mg PO total 7 days and Augmentin 875mg PO BID total 5 days. [facility] M: [phone] O:[phone] Subjective Date of service: 04/30/19 Principal diagnosis: Abdominal abcess,stage IV colon CA,colo-vesical fistula Interval history: Patient seen and examined. Reports oral mouth pain and generalized weakness. No fevers. Objective - Exam Narrative Exam: General appearance: Awake. Alert. Acute distress, mouth pain. Eyes: anicteric sclerae, moist conjunctivae; no lid-lag; PERRLA HENT: Atraumatic; oropharynx clear with moist mucous membranes, ?thrush Neck: Trachea midline; supple, no thyromegaly or lymphadenopathy Lungs: CTA CV: RRR no murmur Abdomen: Soft,midline with surgical wound + abdominal wall erythema + ostomy bag over wound. Extremities: no edema, cyanosis Skin: +tattoos, no rash, ulcers or subcutaneous nodules Psych: Appropriate affect, alert and oriented to person, place and time. Neuro: alert and oriented x 3. Moving all extremities - Constitutional Vitals: Vital Signs Temp Pulse Resp BP Pulse Ox 99.0 F 89 18 134/78 96 04/30/19 06:34 04/30/19 06:34 04/30/19 06:34 04/30/19 06:34 04/30/19 06:34 Temperature -Last 24 Hours Temperature 99.0 F Temperature 98.7 F Temperature 98.9 F Temperature 98.8 F Temperature 98.8 F - Labs CBC & Chem 7: 04/28/19 03:49 04/30/19 06:10 Labs: Abnormal lab results 04/30/19 Range/Units 06:10 Potassium 3.2 L (3.6-5.0) mmol/L BUN 5 L (9-20) mg/dL Creatinine 0.6 L (0.8-1.5) mg/dL Calcium 7.3 L (8.4-10.2) mg/dL
[2019-04-30] MEDS: MORPHINE IV PRN (10:21)
[2019-04-30] MEDS: LIDOCAINE VISCOUS 2% PO PRN (10:21)
[2019-04-30] MEDS: DIFLUCAN 200 MG/100 ML BAG IV SCH ×2 (10:26→10:27)
[2019-04-30] MEDS: K-DUR PO SCH (10:27)
[2019-04-30] MEDS: SODIUM CHLORIDE FLUSH SYRINGE 10 ML IV SCH (10:29)
[2019-04-30] MEDS: KCL 10MEQ/100ML 10 MEQ/100 ML BAG IV SCH ×3 (12:00→15:00)
[2019-04-30 12:56] VITALS: BP 123/74
[2019-04-30] MEDS: HEPARIN SUB-Q SCH (13:06)
[2019-04-30] MEDS ORDERED: MAGIC MOUTHWASH PO SCH (14:00)
[2019-04-30] MEDS ORDERED: K-DUR PO ONE (15:14)
--- NOTE | 2019-04-30 15:14 | Discharge Summary ---
Providers - Providers Date of Admission: 04/26/19 04:25 Date of discharge: 04/30/19 Attending physician: NANCY NIETO 04/26/19 03:09 Consult to Physician [CONS] Routine Comment: Consulting Provider: FELICITAS BLAND Physician Instructions: Reason For Exam: Abdominal wall abscess, partial SBO 04/26/19 04:14 Consult to Dietitian/Nutrition [CONS] Routine Physician Instructions: Reason For Exam: Reason for Consult: Malnutrition 04/26/19 14:11 Consult to Physician [CONS] Routine Comment: Consulting Provider: MONO HAGAN Physician Instructions: Reason For Exam: critical care management 04/27/19 13:50 Consult to Physician [CONS] Routine Comment: Consulting Provider: SARAHI DEL TORO Physician Instructions: Reason For Exam: abdominal wall abscess 04/28/19 08:45 Consult to Wound/ET Nurse [CONS] Routine Reason For Exam: wound eval Primary care physician: PIEDAD JONES Hospitalization Condition: Serious Hospital course: Patient is a 49-year-old male with recent history of stage IV adenocarcinoma of the colon who presented to the ED on account of 5 days history of lower abdominal swelling. He has associated pain, abdominal wall redness, nausea with vomiting, diarrhea, fever with chills and lightheadedness. Per patient, he has been on hospice care for 3 weeks with DO NOT INTUBATE/DO NOT RESUSCITATE status. However, he revoke hospice and admitted to hospital for increasing abdominal pain. Radiological data: Chest x-ray Abdomen/pelvic CT abdomen x-ray Discharge Diagnosis and management: Septic shock - secondary to abdominal abscess and UTI - placed on iv abx, weaned off pressors 04/28, obtained cx, ID consulted -Surgery consulted, s/p I and D, enterocutaneous fistula suspected - discharged home with Fluconazole 200 mg PO total 7 days and Augmentin 875mg PO BID total 5 days. Electrolyte derangement; hypokalemia, hypomagnesemia, hypophosphatemia -Patient admits to poor by mouth intake when he was at home due to abdominal pain -Potassium, magnesium and phosphate have been replaced Oral candidiasis, on diflucan Enterocutaneous fistula and vesicocolonic fistula' - supportive care, per patient he was told by [facility] surgeon that no further treatment at this point and recommended hospice Anemia of chronic disease -H&H stable, Stage IV adenocarcinoma of colon -On home hospice care Moderate protein calorie malnutrition -Consulted dietitian DVT prophylaxis with heparin Disposition: d/c with home hospice Hospitalist Physical exam: GENERAL: well-developed WM lying on bed appeared to be in no discomfort. HEENT: Normocephalic. Atraumatic. No conjunctival congestion or icterus. Patient has moist mucous membranes but white patches on tongue. NECK: Supple. Trachea midline. CHEST/LUNGS: Clear to auscultated bilaterally, breathing nonlabored. No wheezes crackles or rhonchi. HEART/CARDIOVASCULAR: Regular in rate and rhythm. S1 and S2 positive. ABDOMEN: Abdomen is soft, drainage on place on the anterior abdominal wall. Patient has normal bowel sounds. SKIN: There is no rash. Warm and dry. NEURO: No focal motor deficit. Follows command. MUSCULOSKELETAL: No joint effusion EXTRIMITY: No edema, no cyanosis or clubbing. PSYCH: Cooperative. Disposition: DC-50 TO HOSPICE (HOME) Time spent for discharge: 34 minutes Core Measure Documentation - Palliative Care Palliative Care/ Comfort Measures: Hospice Care - Core Measures Any of the following diagnoses?: none Exam - Constitutional Vitals: Temp Pulse Resp BP Pulse Ox 98.2 F 80 16 123/74 96 04/30/19 11:12 04/30/19 11:12 04/30/19 11:12 04/30/19 11:12 04/30/19 11:12 Plan Activity: fall precautions Weight Bearing Status: Non-Weight Bearing Diet: advance as tolerated Wound: per your surgeon's advice, per wound nurse instructions Follow up with: PIEDAD JONES MD [Primary Care Provider] - 3-5 Days FELICITAS BLAND MD [Staff Physician] - 7 Days Prescriptions: Amoxicillin/Potassium Clav [Augmentin 875-125 Tablet] 1 each PO BID #10 tablet Fluconazole [Diflucan TAB] 200 mg PO QDAY #7 tablet Potassium Chloride [K-Dur] 40 meq PO QDAY #5 tablet Nystas/Diphen/Xyl Visc/Mylanta [Magic Mouthwash] 15 ml PO TID 7 Days #500 ml
[2019-05-01] MEDS ORDERED: DIFLUCAN PO SCH (10:00)
== END 2019-04-30 16:35 | disposition hospice, home (50) | DRG 856 ==
LOC: ED 21:19 → IMCU 04-26 04:25 → CC1 04-26 09:31 → 3A 04-28 17:05
PROVIDERS: ADMIT Internal Medicine; ATTEND Internal Medicine
PROC: 0J980ZZ Drainage of Abdomen Subcutaneous Tissue and Fascia, Open Approach (ICD-10-PCS; principal; 2019-04-26)
PROC: 30233N1 Transfusion of Nonautologous Red Blood Cells into Peripheral Vein, Percutaneous Approach (ICD-10-PCS; 2019-04-27)
DX: T81.41XA Infection following a procedure, superficial incisional surgical site, initial encounter (principal); A41.9 Sepsis, unspecified organism; R65.21 Severe sepsis with septic shock; E44.0 Moderate protein-calorie malnutrition; N39.0 Urinary tract infection, site not specified; C18.9 Malignant neoplasm of colon, unspecified; E87.6 Hypokalemia; E83.42 Hypomagnesemia; Z51.5 Encounter for palliative care; E83.39 Other disorders of phosphorus metabolism; B37.0 Candidal stomatitis; N32.1 Vesicointestinal fistula; D63.8 Anemia in other chronic diseases classified elsewhere; Z66 Do not resuscitate; K50.90 Crohn's disease, unspecified, without complications; L02.211 Cutaneous abscess of abdominal wall; Z87.891 Personal history of nicotine dependence; Y83.8 Other surgical procedures as the cause of abnormal reaction of the patient, or of later complication, without mention of misadventure at the time of the procedure; Z68.23 Body mass index [BMI] 23.0-23.9, adult; Y92.89 Other specified places as the place of occurrence of the external cause; Z93.3 Colostomy status
CPT/HCPCS: 36415; 71045; 74019; 74177; 80048; 80053; 81001; 82140; 82962; 83690; 83735; 84100; 84132; 85025; 85730; 86850; 86900; 86901; 86920; 87040; 87075; 87076; 87086; 87116; 87186; 93005; 93010; 96365; 96367; 96375; 99406; G0378; J0692; J1170; J1450; J1644; J1956; J2250; J2270; J2543; J3010; J3370; J3411; J3420; J3475; J3480; J7030; J7040; P9016; Q9967

== ENCOUNTER 2019-05-05 07:48 | Outpatient (CLI) | payer MEDICAID ==
[2019-05-05] MEDS ORDERED: XYLOCAINE TOPICAL 4% TP ONE (08:30)
[2019-05-05] MEDS ORDERED: SILVER NITRATE TP ONE (08:30)
== END 2019-05-05 07:49 | disposition home or self-care (01) ==
LOC: WOUND 07:48
PROVIDERS: ATTEND Surgery
DX: T81.89XD Other complications of procedures, not elsewhere classified, subsequent encounter (principal); K50.813 Crohn's disease of both small and large intestine with fistula; Z85.038 Personal history of other malignant neoplasm of large intestine; Z87.891 Personal history of nicotine dependence; Y83.8 Other surgical procedures as the cause of abnormal reaction of the patient, or of later complication, without mention of misadventure at the time of the procedure
CPT/HCPCS: 99215; G0463

== ENCOUNTER 2019-05-30 10:01 | Emergency (ER) | payer MEDICAID ==
[2019-05-30] MEDS ORDERED: MORPHINE IV ONE (10:17)
[2019-05-30] MEDS ORDERED: ZOFRAN IV ONE (10:17)
[2019-05-30] MEDS ORDERED: NACL 0.9% 1000 ML 1,000 ML IV ONE (10:17)
[2019-05-30 10:19] VITALS: BP 107/83
[2019-05-30 10:50] LABS: Albumin 3.3 g/dL (3.9-5); BUN/Creatinine Ratio 21; Blood Urea Nitrogen 17 mg/dL (9-20); Calcium 9.6 mg/dL (8.4-10.2); Hemolysis Index 7
[2019-05-30 10:54] LABS: Alanine Aminotransferase < 5 units/L (7-56); Bilirubin,Direct < 0.2 mg/dL (0-0.2)
[2019-05-30 11:01] LABS: Basophils # (Auto) 0.2 K/mm3 (0.0-0.1); Basophils % (Auto) 1.7 % (0.0-1.8); Eosinophils # (Auto) 0.2 K/mm3 (0.0-0.4); Eosinophils % (Auto) 1.6 % (0.0-4.3); Hematocrit 36.3 % (35.5-45.6); Hemoglobin 11.6 gm/dl (11.8-15.2); Lymphocytes # (Auto) 0.4 K/mm3 (1.2-5.4); Lymphocytes % (Auto) 3.3 % (13.4-35.0); Mean Corpuscular HGB Conc 32 % (32-34); Mean Corpuscular Volume 79 fl (84-94); Monocytes # (Auto) 0.4 K/mm3 (0.0-0.8); Platelet Count 357 K/mm3 (140-440); Red Blood Count 4.63 M/mm3 (3.65-5.03); Red Cell Distribution Width 17.4 % (13.2-15.2)
[2019-05-30 11:57] LABS: INR 1.11 (0.87-1.13)
--- NOTE | 2019-05-30 13:02 | Cat Scan Report ---
CT ABDOMEN AND PELVIS WITH CONTRAST INDICATION: Abdominal pain, nausea, vomiting, duration 2 weeks, history of widespread adenocarcinoma CONTRAST: 100 cc Omnipaque 300 IV COMPARISON: 04/26/[address] scans at this location are performed using CT dose reduction for ALARA by means of automated e xposure control. FINDINGS: Lung bases are clear. No pneumoperitoneum is seen. No urinary obstructive changes are noted . Gallbladder appears within normal limits. Retroperitoneal adenopathy is not significantly changed. Mesenteric adenopathy is unchanged. Previous study a large collection was seen in the subcutaneous tissues of the midline anterior pelvic wall with a large air-fluid level seen. There appears to been interval surgical intervention and onl y a minimal amount of fluid and gas is seen in this area which appears to be covered with an ostomy b ag and presumably communicates with this bag. The musculature of the anterior pelvic wall at this loc ation is thickened and mildly inflamed in appearance though similar to prior study. There is less vijaya ma/inflammation in the subcutaneous tissues and on the previous study. Extending into the pelvis from this site of the anterior pelvic wall and extending to the right is an elongated collection with a m ildly organized wall containing air and fluid with air-fluid level seen. This collection was present previously. Length of the collection is approximately 8 cm but thickness is only 1.3 cm. Dimensions a re not significantly changed from prior study. There is less fluid today and more gas than on previou s study. I suspect this is a communicating tract through the midline anterior pelvic wall. No new col lections are seen. No evidence of bowel obstruction is noted. Moderate increase in colonic stool is s een system with constipation. Small bowel loops in the area of the pelvic collection again show thick ening and there is mild inflammation in this general area but I do not see small bowel dilatation. Ap pendix is not visualized. No free fluid is seen. IMPRESSION: 1. Markedly improved appearance of the anterior pelvic wall subcutaneous tissues with only a minimal amount of fluid and air at the site of a previously large collection with apparent surgical intervent ion. Presumably this communicates with what appears to be an ostomy bag at the skin level. 2. The thin elongated collection of fluid and air seen on prior study in April continues to be present and is not significantly changed in size differing only and more gas and less fluid. There is still inflammation in this area. This probably communicates with the anterior pelvic wall collection and ex tends to that point as an elongated sinus tract/continued abscess. There is general inflammation in t his area. No bowel obstruction is seen however. 3. No new collections are noted. 4. Evidence of constipation. Signer Name: Jun Funes MD Signed: 05/30/2019 12:58 PM Workstation Name: [id number]
[2019-05-30 13:05] LABS: Bacteria,Urine 1+ /HPF (Negative); Bilirubin,Urine NEG (Negative); Blood,Urine SM (Negative); Color,Urine Yellow (Yellow); Mucus,Urine 2+ /HPF; Urobilinogen,Urine < 2.0 mg/dL (<2.0)
[2019-05-30 13:12] LABS: WBC,Urine > 182.0 /HPF (0.0-6.0)
--- NOTE | 2019-05-30 13:21 | Emergency Department Report ---
HPI - General Chief Complaint: Abdominal Pain Time Seen by Provider: 05/30/19 10:09 - HPI HPI: patient with terminal cancer presents to ER with abdominal pain, s/p abdominal wall abscess I and D, in late April. He has stopped chemotherapy because adverse reaction, his oncologist told him he had 3 months to live, he is currently on [facility] getting morphine and Percocet for pain. Today he got very nauseous, had abdominal discomfort, came to ED for further evaluation. ED Past Medical Hx - Past Medical History Hx Hypertension: Yes Hx Diabetes: Yes Additional medical history: Crohn's Disease, Bowel obstruction, stage 4 stomach, bladder and colon cancer - Surgical History Additional Surgical History: 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 Gastric surgery (patient uncertain what was done). fistula from colon to bladder - Social History Smoking Status: Current Every Day Smoker Substance Use Type: None - Medications Home Medications: Home Medications Medication Instructions Recorded Confirmed Last Taken Type ALPRAZolam [Xanax TAB] 0.5 mg PO HS 04/26/19 04/26/19 Unknown History Morphine [Morphine TAB] 30 mg PO HS 04/26/19 04/26/19 Unknown History Oxycodone HCl/Acetaminophen 1 each PO Q6HR PRN 04/26/19 04/26/19 Unknown History [Percocet 10/325 mg] Amoxicillin/Potassium Clav 1 each PO BID #10 tablet 04/30/19 Unknown Rx [Augmentin 875-125 Tablet] Fluconazole [Diflucan TAB] 200 mg PO QDAY #7 tablet 04/30/19 Unknown Rx Nystas/Diphen/Xyl Visc/Mylanta 15 ml PO TID 7 Days #500 ml 04/30/19 Unknown Rx [Magic Mouthwash] Potassium Chloride [K-Dur] 40 meq PO QDAY #5 tablet 04/30/19 Unknown Rx Promethazine [Phenergan] 25 mg PO TID PRN #45 tablet 05/30/19 Unknown Rx ED Review of Systems ROS: Stated complaint: SICK/VOMITING Other details as noted in HPI Comment: All other systems reviewed and negative ENT: denies: ear pain Cardiovascular: denies: chest pain Gastrointestinal: abdominal pain, nausea, vomiting Physical Exam - Physical Exam Vital Signs: Vital Signs 05/30/19 05/30/19 05/30/19 10:11 10:15 10:21 Temperature 98.4 F 98.4 F Pulse Rate 91 H 93 H Respiratory 20 20 12 Rate Blood Pressure 107/83 Blood Pressure 107/83 [Left] O2 Sat by Pulse 97 99 99 Oximetry Physical Exam: Gen. alert and oriented 3 in no distress Head atraumatic normocephalic Eyes PERR LA EOMI Chest regular rate and rhythm normal S1-S2 lungs clear bilaterally Abdomen soft nondistended, colostomy bag D, C, I Back no point tenderness paravertebral tenderness Neuro no focal deficit. Psych normal mood. ED Course Vital Signs 05/30/19 05/30/19 05/30/19 10:11 10:15 10:21 Temperature 98.4 F 98.4 F Pulse Rate 91 H 93 H Respiratory 20 20 12 Rate Blood Pressure 107/83 Blood Pressure 107/83 [Left] O2 Sat by Pulse 97 99 99 Oximetry ED Medical Decision Making - Lab Data Result diagrams: 05/30/19 10:26 05/30/19 10:26 - Medical Decision Making HOSPICE PATIENT WITH TERMINAL CANCER, CT SHOWED NO OBSTRUCTION, WILL D/C HOME, F/U WITH HOSPICE FOR PAIN CONTROL. Critical care attestation.: If time is entered above; I have spent that time in minutes in the direct care of this critically ill patient, excluding procedure time. ED Disposition Clinical Impression: Cancer of appendix, Abdominal abscess, Nausea Abdominal pain Qualifiers: Abdominal location: generalized Qualified Code(s): R10.84 - Generalized abdominal pain Disposition: - TO HOME OR SELFCARE Is pt being admited?: No Does the pt Need Aspirin: No Condition: Stable Instructions: Colorectal Cancer (ED), Abdominal Pain (ED) Prescriptions: Promethazine [Phenergan] 25 mg PO TID PRN #45 tablet PRN Reason: Nausea Referrals: JEREMIAH ARANGO MD [Primary Care Provider] - 3-5 Days
== END 2019-05-30 14:07 | disposition home or self-care (01) ==
LOC: ED 10:01
DX: L02.211 Cutaneous abscess of abdominal wall (principal); C18.1 Malignant neoplasm of appendix; I10 Essential (primary) hypertension; E11.9 Type 2 diabetes mellitus without complications; F17.200 Nicotine dependence, unspecified, uncomplicated; Z85.51 Personal history of malignant neoplasm of bladder; Z85.038 Personal history of other malignant neoplasm of large intestine; Z98.890 Other specified postprocedural states; Z79.899 Other long term (current) drug therapy
CPT/HCPCS: 36415; 74177; 80048; 80076; 81001; 82150; 83690; 85025; 85610; 96361; 96374; 96375; 99284; J2270; J2405; J7030; Q9967